=== PATIENT | female | born 1965 | race Caucasian/White ===

== ENCOUNTER 2020-04-08 07:54 | Outpatient (REF) | payer MEDICAID, SELFPAY | END 2020-04-08 07:55 | disposition home or self-care (01) | LOC: HO.LAB 07:54 | PROVIDERS: Visit Provider Internal Medicine | DX: Z20.828 Contact with and (suspected) exposure to other viral communicable diseases (principal) | CPT/HCPCS: C9803; U0003 ==

== ENCOUNTER 2020-07-15 10:08 | Outpatient (REF) | payer MEDICAID, SELFPAY ==
--- NOTE | ~2020-07-15 | XR_ITS ---
EXAMINATION: XR ANKLE, RIGHT CLINICAL INFORMATION: Pain right ankle and right foot. COMPARISON: Right foot 10/17/2012 TECHNIQUE: AP, lateral, and mortise views of the right ankle. FINDINGS: The ankle mortise and subtalar joints are maintained normal. There is a large calcaneal and retrocalcaneal enthesophyte. There is dorsal intertarsal spurring. The soft tissues are normal. There is mild lateral malleolar soft tissue swelling and lateral spurring. XR/XR ankle RT min 3V IMPRESSION: Large calcaneal and retrocalcaneal enthesophytes. No visible acute fracture, dislocation or subluxation seen. Mild lateral malleolar soft tissue swelling and spurring.
== END 2020-07-15 10:09 | disposition home or self-care (01) ==
LOC: HO.XRAY 10:08
PROVIDERS: Visit Provider Registered Nurse
DX: M25.571 Pain in right ankle and joints of right foot (principal); M79.671 Pain in right foot
CPT/HCPCS: 73610

== ENCOUNTER 2020-07-22 15:05 | Outpatient (REF) | payer MEDICAID, SELFPAY | END 2020-07-22 15:06 | disposition home or self-care (01) | LOC: HO.LAB 15:05 | PROVIDERS: Visit Provider Internal Medicine | DX: Z20.822 Contact with and (suspected) exposure to COVID-19 (principal) | CPT/HCPCS: 36415; C9803; U0003; U0005 ==

== ENCOUNTER 2021-02-26 19:35 | Inpatient (IN) | payer MEDICAID, SELFPAY ==
--- NOTE | ~2021-02-26 | XR_ITS ---
EXAMINATION: XR ABDOMEN KUB CLINICAL INDICATION: Follow-up small bowel obstruction COMPARISON: Previous CT of the abdomen and pelvis from yesterday TECHNIQUE: Supine views of the abdomen and pelvis. FINDINGS: There are dilated loops of small bowel seen in the left lower quadrant. This does not appear appreciably changed from yesterday's CT scan. There is no evidence of free air. There is a new nasogastric tube projects over the stomach. There are degenerative changes of the spine and hip joints. XR/XR KUB IMPRESSION: No change in small bowel dilatation from yesterday's CT scan.
--- NOTE | ~2021-02-26 | XR_ITS ---
EXAMINATION: XR CHEST CLINICAL INFORMATION: Nasogastric tube confirmation COMPARISON: None TECHNIQUE: Frontal view of the chest was obtained. FINDINGS: Enteric tube terminates within the gastric fundus. Right chest wall Mediport catheter terminates within the mid SVC. Normal symmetric lung volumes. No parenchymal consolidation. No pleural effusion. No pneumothorax. Cardiomediastinal silhouette and pulmonary vascularity are within normal limits. No acute osseous abnormalities. XR/XR chest 1V IMPRESSION: Nasogastric tube terminates within the gastric fundus.
--- NOTE | ~2021-02-26 | CT_ITS ---
EXAMINATION: CT ABDOMEN AND PELVIS WITHOUT CONTRAST CLINICAL INFORMATION: Upper abdominal pain COMPARISON: 06/09/2018 TECHNIQUE: Multidetector volumetric imaging was performed from the superior aspect of the liver through the pubic symphysis. Sagittal and coronal reformatted images were obtained on the technologist's workstation. This CT examination was performed using dose optimization techniques as appropriate, variously including the following: *Automated exposure control *Adjustment of mA and/or kV according to patient size (this includes techniques or standardized protocols for targeted exams where dose is matched to indication/reason for exam; i.e. extremities or head) *Use of iterative reconstruction technique DLP: 1468 mGy-cm FINDINGS: LUNG BASES: The visualized lung bases are unremarkable. LIVER, GALLBLADDER, AND BILIARY TREE: The liver is normal in size, shape, and attenuation. No focal hepatic lesion or biliary ductal dilatation is present. Gallbladder unremarkable. PANCREAS: Unremarkable. SPLEEN: Unremarkable. ADRENAL GLANDS: Interval increase in size of a right adrenal nodule measuring 1.8 cm, previously 1.3 cm measuring 3 Hounsfield units compatible with a lipid rich adenoma. Normal left adrenal gland. KIDNEYS AND URETERS: The kidneys are normal in size, shape, and attenuation. No hydronephrosis, hydroureter, or calculi seen. No perinephric stranding. BLADDER: Unremarkable. GASTROINTESTINAL TRACT: There are 3 ventral periumbilical abdominal wall hernias in the midline, largest in the epigastric region. There is a small bowel obstruction associated with the most cephalad of the 3 abdominal wall hernias whereby the loop of jejunum entering the hernia is significantly dilated with inspissation of succus entericus with point of transition as loop exits the hernia as seen on coronal image 32. There are 2 smaller ventral abdominal hernias below the dominant hernia, one of which contains a nonobstructed loop of small bowel, the other containing a portion of the sigmoid colon. Subtotal colectomy. ABDOMINAL WALL: No significant hernia is appreciated. LYMPH NODES: Normal. VASCULAR: Aorta mildly atherosclerotic. PELVIC VISCERA: Unremarkable. OSSEOUS STRUCTURES: No acute or suspicious osseous abnormalities. Severe discogenic degenerative disease present throughout the spine. CT/CT abdomen pelvis wo con IMPRESSION: * There are 3 ventral abdominal wall hernias in the midline, the more superior of the 3 associated with a small bowel obstruction with transition point in the proximal jejunum as described. * Status post subtotal colectomy. * Interval increase in size of a right adrenal nodule with attenuation values compatible with adenoma. Current guidelines from the [place] [employer] and the [place] [employer] recommend an initial biochemical evaluation of all adrenal incidentalomas to exclude pheochromocytoma, subclinical [place]/s syndrome and hyperaldosteronism.
[2021-02-26 19:59] VITALS: BP 143/60; PULSE 95; RESP 16; TEMP 36; O2SAT 98; BMI 55.2
--- NOTE | 2021-02-26 20:28 | ED_ITS ---
HPI - Abdominal Pain General Chief Complaint: Nausea/Vomiting/Diarrhea <Massimo Rodriguez MD - Last Filed: 03/02/21 00:12> Stated Complaint: vomitting <Massimo Rodriguez MD - Last Filed: 03/02/21 00:12> Time Seen by Provider: 02/26/21 20:20 <Massimo Rodriguez MD - Last Filed: 03/02/21 00:12> Source: patient <Massimo Rodriguez MD - Last Filed: 03/02/21 00:12> Mode of arrival: ambulatory <Massimo Rodriguez MD - Last Filed: 03/02/21 00:12> Limitations: no limitations <Massimo Rodriguez MD - Last Filed: 03/02/21 00:12> History of Present Illness HPI narrative: Patient history of colon cancer, lap band surgery with recurrent hernias had food last night since then been vomiting multiple times with epigastric pain. Did not have any bowel movement today. No fever no chills complaining of pain in the upper abdominal area no pain in the right upper quadrant no fever no chills no urinary complaints <Massimo Rodriguez MD - Last Filed: 03/02/21 00:12> Related Data Home Medications: Home Medications Medication Instructions Recorded Confirmed aspirin 81 mg tablet,delayed 1 tab PO DAILY 02/26/21 02/26/21 release cholecalciferol (vitamin D3) 25 1 cap PO DAILY 02/26/21 02/26/21 mcg (1,000 unit) capsule fluticasone propionate 220 1 puff INHALATION BID 02/26/21 02/27/21 mcg/actuation HFA aerosol inhaler (Flovent HFA) levothyroxine 200 mcg tablet 400 mcg PO DAILY 02/26/21 02/27/21 lidocaine 5 % topical patch 1 patch TOPICAL DAILY 02/26/21 02/26/21 metformin 500 mg tablet 1 tab PO BID 02/26/21 02/26/21 multivitamin with folic acid 400 1 tab PO DAILY 02/26/21 02/27/21 mcg tablet (Daily-Loida (with folic acid)) oxycodone-acetaminophen 7.5 mg-325 1 tab PO QID PRN 02/26/21 02/26/21 mg tablet pantoprazole 20 mg tablet,delayed 1 tab PO DAILY 02/26/21 02/26/21 release paroxetine HCl 40 mg tablet 1 tab PO DAILY 02/26/21 02/26/21 zolpidem 10 mg tablet 1 tab PO BEDTIME PRN 02/26/21 02/26/21 Previous Rx's Medication Instructions Recorded amlodipine 2.5 mg tablet 2.5 mg PO DAILY #14 tab 03/02/21 <Massimo Rodriguez MD - Last Filed: 03/02/21 00:12> Allergies/Adverse Reactions: Allergies Allergy/AdvReac Type Severity Reaction Status Date / Time cortisone [CORTISONE] Allergy Mild RASH Verified 02/26/21 20:06 Penicillins [PENICILLINS] Allergy Mild RASH Verified 02/26/21 20:06 bee pollen [BEE STINGS] Allergy Unknown ANAPHYLAXIS Verified 02/26/21 20:06 penicillin V Allergy Unknown Itching Verified 02/26/21 20:06 Cortisone Allergy Unknown Itching Uncoded 02/26/21 20:06 <Massimo Rodriguez MD - Last Filed: 03/02/21 00:12> Review of Systems Review of Systems Yes all other systems are reviewed and are negative <Massimo Rodriguez MD - Last Filed: 03/02/21 00:12> [facility], [facility] Past Medical History Medical History: Medical History Asthma Colon cancer Diabetes Morbid obesity Thyroid cancer <Massimo Rodriguez MD - Last Filed: 03/02/21 00:12> Social History Social History: Social History Household Members: Family Housing: House Patient Tobacco Use Status: Never used Tobacco service: No Current occupational status: disabled <Massimo Rodriguez MD - Last Filed: 03/02/21 00:12> Course Course Course Narrative: On re-evaluation patient states that she remains nauseous with intermit tent pain but has not had any further episodes of vomiting. On review of all investigations patient has an obstruction with transition at the jejunum. This case was discussed with Dr. Summers who accepts admission and recommends nasogastric tube. <Valarie Mckenzie MD - Last Filed: 02/26/21 22:59> MDM - Abdominal Pain MDM Narrative Medical decision making narrative: Patient with upper abdominal pain with nausea vomiting after eating food. Will do the labs to the CT scan to rule out gallstones versus pancreatitis. Patient signed out to Dr. Hill pending labs and CT scan <Massimo Rodriguez MD - Last Filed: 03/02/21 00:12> Lab Data Attestation: I reviewed the patient's lab results. <Massimo Rodriguez MD - Last Filed: 03/02/21 00:12> Result diagrams: : 02/28/21 08:12 02/27/21 07:35 <Massimo Rodriguez MD - Last Filed: 03/02/21 00:12> Labs: Lab Results 02/26/21 02/26/21 Range/Units 20:32 20:32 WBC 16.6 H (4.8-10.8) X10*3/uL RBC 5.34 (4.20-5.50) X10*6/uL Hgb 14.1 (12.0-16.0) g/dl Hct 42.9 (37-47) % MCV 80.3 (80-98) fL MCH 26.4 L (27.0-33.0) pg MCHC 32.9 (31.0-35.0) g/dl RDW 14.4 (11.0-16.0) % Plt Count 351 (160-400) X10*3/uL MPV 11.3 (9.4-12.3) fL Immature Gran % (Auto) 0.7 H (0.0-0.4) % Neut % (Auto) 83.7 H (45-73) % Lymph % (Auto) 10.1 L (20-40) % [place] % (Auto) 5.2 (2-11) % Eos % (Auto) 0.1 (0-4) % Baso % (Auto) 0.2 (0-2) % Lymph # (Auto) 1.7 (1.2-4.9) X10*3/uL [place] # (Auto) 0.9 (0.1-1.2) X10*3/uL Eos # (Auto) 0.0 (0.0-0.4) X10*3/uL Baso # (Auto) 0.0 (0.0-0.2) X10*3/uL Abs Immat Gran (auto) 0.12 H (0.00-0.03) X10*3/uL Absolute Neuts (auto) 13.9 H (2.0-8.3) X10*3/uL Absolute Nucleated RBC 0.000 (0.0-0.012) X10*3/uL Nucleated RBC % (auto) 0.0 (0.0-0.2) /100WBC Sodium 139 (135-145) mmol/L Potassium 4.4 (3.3-5.1) mmol/L Chloride 97 (96-108) mmol/L Carbon Dioxide 31 H (22-29) mmol/L Anion Gap 15 (12-20) BUN 12 (9-16) mg/dL Creatinine 1.01 (0.5-1.4) mg/dL Estim Creat Clear Calc 99.8 Estimated GFR 56 Random Glucose 178 H (60-115) mg/dL Calcium 10.1 (8.4-10.2) mg/dL Total Bilirubin 0.6 (0.0-1.0) mg/dL Direct Bilirubin 0.3 (0.0-0.5) mg/dL AST 19 (5-31) U/L ALT 14 (0-31) U/L Alkaline Phosphatase 78 (39-117) U/L Total Protein 8.2 H (6.5-8.0) g/dL Albumin 4.6 (3.5-5.0) g/dL Lipase 25 (8-78) U/L <Massimo Rodriguez MD - Last Filed: 03/02/21 00:12> Lab Results 02/26/21 02/26/21 Range/Units 20:32 20:32 WBC 16.6 H (4.8-10.8) X10*3/uL RBC 5.34 (4.20-5.50) X10*6/uL Hgb 14.1 (12.0-16.0) g/dl Hct 42.9 (37-47) % MCV 80.3 (80-98) fL MCH 26.4 L (27.0-33.0) pg MCHC 32.9 (31.0-35.0) g/dl RDW 14.4 (11.0-16.0) % Plt Count 351 (160-400) X10*3/uL MPV 11.3 (9.4-12.3) fL Immature Gran % (Auto) 0.7 H (0.0-0.4) % Neut % (Auto) 83.7 H (45-73) % Lymph % (Auto) 10.1 L (20-40) % [place] % (Auto) 5.2 (2-11) % Eos % (Auto) 0.1 (0-4) % Baso % (Auto) 0.2 (0-2) % Lymph # (Auto) 1.7 (1.2-4.9) X10*3/uL [place] # (Auto) 0.9 (0.1-1.2) X10*3/uL Eos # (Auto) 0.0 (0.0-0.4) X10*3/uL Baso # (Auto) 0.0 (0.0-0.2) X10*3/uL Abs Immat Gran (auto) 0.12 H (0.00-0.03) X10*3/uL Absolute Neuts (auto) 13.9 H (2.0-8.3) X10*3/uL Absolute Nucleated RBC 0.000 (0.0-0.012) X10*3/uL Nucleated RBC % (auto) 0.0 (0.0-0.2) /100WBC Sodium 139 (135-145) mmol/L Potassium 4.4 (3.3-5.1) mmol/L Chloride 97 (96-108) mmol/L Carbon Dioxide 31 H (22-29) mmol/L Anion Gap 15 (12-20) BUN 12 (9-16) mg/dL Creatinine 1.01 (0.5-1.4) mg/dL Estim Creat Clear Calc 99.8 Estimated GFR 56 Random Glucose 178 H (60-115) mg/dL Calcium 10.1 (8.4-10.2) mg/dL Total Bilirubin 0.6 (0.0-1.0) mg/dL Direct Bilirubin 0.3 (0.0-0.5) mg/dL AST 19 (5-31) U/L ALT 14 (0-31) U/L Alkaline Phosphatase 78 (39-117) U/L Total Protein 8.2 H (6.5-8.0) g/dL Albumin 4.6 (3.5-5.0) g/dL Lipase 25 (8-78) U/L <Valarie Mckenzie MD - Last Filed: 02/26/21 22:59> Discharge Plan Discharge Clinical Impression: SBO (small bowel obstruction), Diabetes, Adrenal nodule <Massimo Rodriguez MD - Last Filed: 03/02/21 00:12> Patient Disposition: Admitted As Inpatient <Massimo Rodriguez MD - Last Filed: 03/02/21 00:12> Interventions: Admission Worksheet (ED) Last Done: 02/27/21 05:16 <Massimo Rodriguez MD - Last Filed: 03/02/21 00:12> Discharge Date/Time: 02/27/21 05:17 <Massimo Rodriguez MD - Last Filed: 03/02/21 00:12>
[2021-02-26] MEDS: 0.9 % Sodium Chloride 1,000 ML 999 ML IVCONT (20:34)
[2021-02-26 20:37] LABS: MANUAL DIFF FLAG NO
[2021-02-26 20:38] LABS: Basophils Percent Auto 0.2 % (0-2); Eosinophils Percent Auto 0.1 % (0-4); Hematocrit 42.9 % (37-47); Hemoglobin 14.1 g/dl (12.0-16.0); Imm Gran Abs Auto 0.12 X10*3/uL (0.00-0.03); Imm Gran Pct Auto 0.7 % (0.0-0.4); Lymphocytes Absolute Auto 1.7 X10*3/uL (1.2-4.9); Lymphocytes Percent Auto 10.1 % (20-40); Mean Corpuscular HGB Conc 32.9 g/dl (31.0-35.0); Mean Corpuscular Hemoglobin 26.4 pg (27.0-33.0); Mean Corpuscular Volume 80.3 fL (80-98); Mean Platelet Volume 11.3 fL (9.4-12.3); Monocytes Absolute Auto 0.9 X10*3/uL (0.1-1.2); Monocytes Percent Auto 5.2 % (2-11); Neutrophils Absolute Auto 13.9 X10*3/uL (2.0-8.3); Neutrophils Percent Auto 83.7 % (45-73); Platelet Count 351 X10*3/uL (160-400); Red Blood Count 5.34 X10*6/uL (4.20-5.50); Red Cell Distribution Width 14.4 % (11.0-16.0); White Blood Count 16.6 X10*3/uL (4.8-10.8)
[2021-02-26] MEDS: ondansetron HCL 4 MG/2 ML VIAL IVPUSH (20:41)
[2021-02-26] MEDS: Famotidine/PF 20 MG/2 ML VIAL IVPUSH (20:41)
[2021-02-26 21:05] LABS: Alanine Aminotransferase 14 U/L (0-31); Albumin Level 4.6 g/dL (3.5-5.0); Alkaline Phosphatase 78 U/L (39-117); Anion Gap 15 (12-20); Aspartate Amino Transferase 19 U/L (5-31); Bilirubin Direct 0.3 mg/dL (0.0-0.5); Bilirubin Total 0.6 mg/dL (0.0-1.0); Blood Urea Nitrogen 12 mg/dL (9-16); Calcium 10.1 mg/dL (8.4-10.2); Carbon Dioxide 31 mmol/L (22-29); Chloride 97 mmol/L (96-108); Creatinine Clr Calc Pharmacy 99.8; Estimated Glomerular Filt Rate 56; Glucose Random 178 mg/dL (60-115); Lipase 25 U/L (8-78); Potassium 4.4 mmol/L (3.3-5.1); Sodium 139 mmol/L (135-145); Total Protein 8.2 g/dL (6.5-8.0)
[2021-02-26] MEDS: Heparin Sodium,Porcine 5,000 UNIT/ML VIAL 5000 UNIT SUBCUT (23:13)
[2021-02-26] MEDS: 0.9 % Sodium Chloride 1,000 ML 100 ML IVCONT (23:13)
[2021-02-26 23:22] LABS: Lactic Acid 1.4 mmol/L (0.5-2.0)
[2021-02-26 23:25] LABS: COVID-19 Test Negative (Negative)
[2021-02-27] VITALS (10 sets, daily range): BP systolic 126–189; BP diastolic 60–96; PULSE 70–89; RESP 15–18; TEMP 36.2–37.1; O2SAT 91–97; BMI 54.3
[2021-02-27] MEDS: Morphine Sulfate 4 MG/ML CARTRIDGE 3 MG IVPUSH ×3 (03:22→19:39)
[2021-02-27] MEDS: 0.9 % Sodium Chloride Flush 3 ML SYRINGE IVFLUSH (03:23)
--- NOTE | 2021-02-27 03:47 | PC.NURSE ---
REPORT GIVEN TO GEETHA WILKINS. PT AWAITING TO GO TO FLOOR.PT DENIES ANY COMPLAINTS AT THIS TIME.
[2021-02-27] MEDS: ondansetron HCL 4 MG/2 ML VIAL IVPUSH ×3 (04:00→19:30)
[2021-02-27] MEDS: Pantoprazole Sodium 40 MG/10 ML VIAL IVPUSH (06:17)
--- NOTE | 2021-02-27 06:50 | PHA.MEDREC ---
Pharmacy Consult ? Medication Reconciliation Med Rec completed overnight by nursing. Pharmacy reviewed med rec. Called [facility] to verify that levothyroxine is prescribed for 200 mcg 2 tabs daily. Tiarra Whitaker, KendellD
--- NOTE | 2021-02-27 07:42 | P.HPGS_ITS ---
History of Present Illness History of Present Illness Date of Service: 02/28/21 Chief complaint: SBO Narrative: Luisa Nieves is a 56 year old female who came to the emergency room last night because of abdominal pain and vomiting. She said she had been doing well and was in her usual state of health until the night prior to her admission. She says she had dinner with groin be even after that, she started to have abdominal pain and vomiting. This persisted yesterday so she decided co me to the emergency room last night. She says that she did not have a bowel movement yesterday although has been passing flatus well. This morning, she says that her pain has resolved. She says she does not have any pain or vomiting overnight since she had an NG tube placed. Her last episode of vomiting was on arrival in the ED. She has had multiple abdominal surgeries. She had a lap band surgery about 7-8 years ago. She says this was be removed 1 year later. She developed a hernia after that. She had colon resection in [facility] as well for colon cancer about 3 years ago. She said she had a hernia repaired at least once in the past. She said that she may have had recurrence of her hernia right after her hernia surgery about 3 years ago. She says that she really has not had any problems with this otherwise. She thinks that she has had this hernia since her last surgery 2-3 years ago. Review of Systems Constitutional: Constitutional: Denies chills and Denies fever(s) Cardiovascular: Cardiovascular: Denies chest pain, Denies dyspnea and Denies dyspnea on exertion Respiratory: Respiratory: Denies cough, Denies dyspnea and Denies dyspnea on exertion Gastrointestinal: Gastrointestinal: Denies hematochezia and Denies change in bowel habits Genitourinary: Genitourinary: Denies hematuria Musculoskeletal: Musculoskeletal: Denies back pain and Denies limited range of motion Neurologic: Denies focal weakness and Denies convulsions Psychiatric: Psychiatric: Denies depression and Denies mood swings PMFSH Past Medical History Medical History Asthma Colon cancer Diabetes Morbid obesity Thyroid cancer Social History Social History Household Members: Family Housing: House Patient Tobacco Use Status: Never used Tobacco Use of substances other than those prescribed or required for medical reasons: No Currently Displaying Signs/Symptoms of Drug Intoxication Withdrawal: No Have you been hit, kicked, punched, or otherwise hurt by someone within the past year? If so, by whom?: No Do you feel safe in your current relationship?: No Is there a partner from a previous relationship who is making you feel unsafe now?: No Are you made to feel afraid or neglected: No Advance Directives: No Advance Directives Information Provided: Yes Advance Directives on File: No Do you have thoughts of harming others: None Do you have a plan to hurt others: No Plan Recently lost weight without trying: No How much weight loss: Not applicable Eating poorly because of decreased appetite: No Nutrition screen score: 0 Nutrition Risks: No Nutritional Risk Patient : No : No Poor oral hygiene: No service: No Current occupational status: disabled [employer] Allergies Allergy/AdvReac Type Severity Reaction Status Date / Time cortisone [CORTISONE] Allergy Mild RASH Verified 02/26/21 20:06 Penicillins [PENICILLINS] Allergy Mild RASH Verified 02/26/21 20:06 bee pollen [BEE STINGS] Allergy Unknown ANAPHYLAXIS Verified 02/26/21 20:06 penicillin V Allergy Unknown Itching Verified 02/26/21 20:06 Cortisone Allergy Unknown Itching Uncoded 02/26/21 20:06 Active Medications: Current Medications Albuterol Sulfate (Albuterol Sulfate 90 Mcg 8 Gm Inhaler) 2 puff INHALE Q4H PRN PRN Reason: wheezing Heparin Sodium (Porcine) (Heparin Sodium,Porcine 5,000 Unit/Ml Vial) 5,000 unit SUBCUT Q8H [facility] Last Admin: 02/26/21 23:13 Dose: 5,000 unit Documented by: Sodium Chloride (Ns) 1,000 mls @ 100 mls/hr IVCONT .Q10H SYDNEE Last Admin: 02/26/21 23:13 Dose: 100 mls/hr Documented by: Morphine Sulfate (Morphine Sulfate 4 Mg/Ml Cartridge) 3 mg IVPUSH Q3H PRN; Protocol PRN Reason: Pain, Severe (Pain Scale 7-10) Last Admin: 02/27/21 03:22 Dose: 3 mg Documented by: Ondansetron HCl (Ondansetron Hcl 4 Mg/2 Ml Vial) 4 mg IVPUSH Q8H PRN PRN Reason: nausea Last Admin: 02/27/21 04:00 Dose: 4 mg Documented by: Pantoprazole Sodium (Pantoprazole Sodium 40 Mg/10 Ml Vial) 40 mg IVPUSH DAILY@0630 [facility] Last Admin: 02/27/21 06:17 Dose: 40 mg Documented by: Sodium Chloride (0.9 % Sodium Chloride Flush 3 Ml Syringe) 3 ml IVFLUSH QSHIFT [facility] Last Admin: 02/27/21 03:23 Dose: 3 ml Documented by: Home Medications Medication Instructions Recorded Confirmed Last Taken Type aspirin 81 mg tablet,delayed 1 tab PO DAILY 02/26/21 02/26/21 Unknown History release cholecalciferol (vitamin D3) 25 1 cap PO DAILY 02/26/21 02/26/21 Unknown History mcg (1,000 unit) capsule fluticasone propionate 220 1 puff INHALATION BID 02/26/21 02/27/21 Unknown History mcg/actuation HFA aerosol inhaler (Flovent HFA) levothyroxine 200 mcg tablet 400 mcg PO DAILY 02/26/21 02/27/21 Unknown History lidocaine 5 % topical patch 1 patch TOPICAL DAILY 02/26/21 02/26/21 Unknown History metformin 500 mg tablet 1 tab PO BID 02/26/21 02/26/21 Unknown History multivitamin with folic acid 400 1 tab PO DAILY 02/26/21 02/27/21 Unknown History mcg tablet (Daily-Loida (with folic acid)) oxycodone-acetaminophen 7.5 mg-325 1 tab PO QID PRN 02/26/21 02/26/21 Unknown History mg tablet pantoprazole 20 mg tablet,delayed 1 tab PO DAILY 02/26/21 02/26/21 Unknown History release paroxetine HCl 40 mg tablet 1 tab PO DAILY 02/26/21 02/26/21 Unknown History zolpidem 10 mg tablet 1 tab PO BEDTIME PRN 02/26/21 02/26/21 Unknown History Physical Exam Vital Signs: Vital Signs: Last Vital Signs Temp 97.5 F 02/27/21 07:29 Pulse 80 02/27/21 07:29 Resp 18 02/27/21 07:29 BP 129/60 02/27/21 07:29 Pulse Ox 95 02/27/21 07:29 Body Mass Index 54.3 Const: Other: Morbidly obese General: comfortable and no acute distress Orientation/consciousness: patient oriented x3 Neck: Neck: Yes no lymphadenopathy Resp: Auscultation: clear to auscultation bilaterally Cardio: Rhythm: regular rhythm GI: Other: Palpable large hernia, midline, no tenderness, hernia only partially reducible but likely chronic Palpation (GI): Soft to palpation, nontender and no guarding Neuro: General: patient oriented x3 Results Results Labs: Short CBC 02/26/21 Range/Units 20:32 WBC 16.6 H (4.8-10.8) X10*3/uL Hgb 14.1 (12.0-16.0) g/dl Hct 42.9 (37-47) % Plt Count 351 (160-400) X10*3/uL BMP 02/26/21 20:32 Sodium 139 Potassium 4.4 Chloride 97 Carbon Dioxide 31 H BUN 12 Creatinine 1.01 Calcium 10.1 Liver Function 02/26/21 Range/Units 20:32 Total Bilirubin 0.6 (0.0-1.0) mg/dL Direct Bilirubin 0.3 (0.0-0.5) mg/dL AST 19 (5-31) U/L ALT 14 (0-31) U/L Alkaline Phosphatase 78 (39-117) U/L Albumin 4.6 (3.5-5.0) g/dL Abdomen CT scan report/results: report reviewed and image reviewed CT scan - pelvis: report reviewed and image reviewed Assessment and Plan (1) SBO (small bowel obstruction): Status: Acute She came in because of abdominal pain and vomiting yesterday. She denies any pain or tenderness at this time. I have reviewed her CAT scan and this shows a large, wide-mouth hernia containing small bowel loops. There seems to be a transition point in a bowel loops within the hernia but this does not appear to be secondary to acute incarceration and there does not appear to be any signs of strangulation. This partial small-bowel obstruction may be secondary to adhesions within the hernia itself. Currently she does not have any tenderness or pain at all. She has had passage of flatus last night and yesterday. She had good amount of air distally on imaging. She has a very benign exam at this time. In view of the absence of symptoms with a benign exam at this time, I told her that we can hold off on surgical intervention. I do not feel that she has acute incarceration based on her history as well as on physical exam. She did have some leukocytosis yesterday but this is likely secondary to physiologic stress. We will keep the NG tube in place although there has not been significant output overnight. I will continue to monitor closely. She understands the plan well. She does state that she would like to avoid surgery as much as possible. Quality Stroke Does the patient have a stroke diagnosis?: No VTE Prior VTE?: No VTE Risk Level:: Medical - moderate - high VTE Device Contraindication: N/A - Device Ordered VTE Drug Contraindication: N/A - Med Ordered Procedures Date of Service Date of Service: 02/27/21
[2021-02-27 08:00] LABS: MANUAL DIFF FLAG NO
[2021-02-27 08:07] LABS: Basophils Percent Auto 0.2 % (0-2); Eosinophils Percent Auto 0.1 % (0-4); Hematocrit 39.5 % (37-47); Hemoglobin 12.7 g/dl (12.0-16.0); Imm Gran Pct Auto 0.7 % (0.0-0.4); Lymphocytes Absolute Auto 1.9 X10*3/uL (1.2-4.9); Lymphocytes Percent Auto 12.3 % (20-40); Mean Corpuscular HGB Conc 32.2 g/dl (31.0-35.0); Mean Corpuscular Hemoglobin 26.2 pg (27.0-33.0); Mean Corpuscular Volume 81.6 fL (80-98); Mean Platelet Volume 11.4 fL (9.4-12.3); Monocytes Absolute Auto 1.1 X10*3/uL (0.1-1.2); Monocytes Percent Auto 7.3 % (2-11); Neutrophils Absolute Auto 11.9 X10*3/uL (2.0-8.3); Neutrophils Percent Auto 79.4 % (45-73); Platelet Count 323 X10*3/uL (160-400); Red Blood Count 4.84 X10*6/uL (4.20-5.50); Red Cell Distribution Width 14.6 % (11.0-16.0)
[2021-02-27 08:24] LABS: Anion Gap 13 (12-20); Blood Urea Nitrogen 13 mg/dL (9-16); Carbon Dioxide 29 mmol/L (22-29); Chloride 101 mmol/L (96-108); Creatinine Clr Calc Pharmacy 126.3; Estimated Glomerular Filt Rate > 60; Glucose Random 138 mg/dL (60-115); Potassium 4.4 mmol/L (3.3-5.1); Sodium 139 mmol/L (135-145)
--- NOTE | 2021-02-27 08:49 | MHC.CM.PN ---
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 THERE IS A CANE AND WALKER IN THE HOME. PATIENT RELIES ON DAUGHTER FOR TRANSPORT NEEDS. SHE IS CURRENTLY EXPERIENCING NAUSEA AND THIS CLERK OPERATOR WILL RETURN TO ASSIST WITH HCP COMPLETION IF SHE CHOOSES TO DO SO. NO VNA IN THE HOME. PATIENT IS AWARE THAT CASE MANAGEMENT WILL OBTAIN PREFERENCES IF VNA SERVICES ARE NEEDED.
[2021-02-27] MEDS: Heparin Sodium,Porcine 5,000 UNIT/ML VIAL 5000 UNIT SUBCUT ×2 (09:00→18:02)
[2021-02-27] MEDS: Levothyroxine Sodium 200 MCG TABLET 400 MCG PO (09:04)
[2021-02-27] MEDS: PARoxetine HCL 40 MG TABLET PO (09:04)
[2021-02-27 09:32] LABS: Glucose, Whole Blood 122 mg/dL (60-115)
[2021-02-27 12:00] LABS: Glucose, Whole Blood 155 mg/dL (60-115)
[2021-02-27 12:08] LABS: Glucose, Whole Blood 144 mg/dL (60-115)
[2021-02-27 15:06] LABS: Glucose, Whole Blood 152 mg/dL (60-115)
--- NOTE | 2021-02-27 15:37 | P.EN_ITS ---
Event Note Date of Service: 02/27/21 Event Note: Seen and examined multiple times today Says she does not have pain Does admit to a little bit of nausea Abdomen soft, no significant tenderness KUB earlier does not reveal any significant interval improvement of dilated bowel loops Plan to repeat KUB tomorrow NG output has been scanty since last night Will re-evaluate in the morning I did tell her that I am not ruling the need for surgical intervention I have asked to retrieve copies of her previous surgery in [facility] Daughter was updated
[2021-02-27 17:06] LABS: Glucose, Whole Blood 121 mg/dL (60-115)
[2021-02-27] MEDS: 0.9 % Sodium Chloride 1,000 ML 100 ML IVCONT (18:04)
--- NOTE | 2021-02-27 18:23 | P.CONHOSP_ITS ---
History of Present Illness Data of Consult Service Date: 02/27/21 Primary Care Provider: Osei Fernández MD [facility] Reason for consult: medical management Ms. Nieves is a 55-year-old woman with history of morbid obesity s/p lap band about 8 years ago that was later removed about a year later, diabetes, ashtma. 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 Subsequently, she underwent a total abdominal colectomy with ileosigmoid anastomosis on 08/[address] Mitchell. ?The pathology report revealed invasive adenocarcinoma, 2.5 cm, moderately differentiated, MIRTA at the proximal transverse colon. ?One of 45 lymph nodes was positive. ?Final staging was pT2 pN1a, stage IIIA. She underwent chemo through a port that she has at the right chest. She presented on this occasion with abdominal pain, nausea and vomitting and work has revealed dilated small bowel loop consitent with small bowel obstruction. NGT is inserted. She presently c/o nausea, NGT with minimal output, not much of abdominal pain. I spoke to her, daughter and significant other at the bedside. Review of Systems Review of Systems: Gen: no fever Resp: no sob, no cough CV: no chest, no MUNOZ, no leg edema GI: +n/v, no abd pain at the moment Neuro: No confusion Yes all other systems are reviewed and are negative [facility] Medical History Asthma Colon cancer Diabetes Morbid obesity Thyroid cancer Pertinent family history: There is diabetes, HNT and cancer in the family Social History Household Members: Family Housing: House Patient Tobacco Use Status: Never used Tobacco Use of substances other than those prescribed or required for medical reasons: No Currently Displaying Signs/Symptoms of Drug Intoxication Withdrawal: No Have you been hit, kicked, punched, or otherwise hurt by someone within the past year? If so, by whom?: No Do you feel safe in your current relationship?: No Is there a partner from a previous relationship who is making you feel unsafe now?: No Are you made to feel afraid or neglected: No Advance Directives: No Advance Directives Information Provided: Yes Advance Directives on File: No Do you have thoughts of harming others: None Do you have a plan to hurt others: No Plan Recently lost weight without trying: No How much weight loss: Not applicable Eating poorly because of decreased appetite: No Nutrition screen score: 0 Nutrition Risks: No Nutritional Risk Patient : No : No Poor oral hygiene: No service: No Current occupational status: disabled Meds Allergies Allergy/AdvReac Type Severity Reaction Status Date / Time cortisone [CORTISONE] Allergy Mild RASH Verified 02/26/21 20:06 Penicillins [PENICILLINS] Allergy Mild RASH Verified 02/26/21 20:06 bee pollen [BEE STINGS] Allergy Unknown ANAPHYLAXIS Verified 02/26/21 20:06 penicillin V Allergy Unknown Itching Verified 02/26/21 20:06 Cortisone Allergy Unknown Itching Uncoded 02/26/21 20:06 Active Medications: Current Medications Albuterol Sulfate (Albuterol Sulfate 90 Mcg 8 Gm Inhaler) 2 puff INHALE Q4H PRN PRN Reason: wheezing Dextrose (Dextrose 50 % 25 Gm/50 Ml Vial) 25 gm IVPUSH Q15M PRN; Protocol PRN Reason: per Hypoglycemia Standing Ord. Fluticasone Propionate (Fluticasone Propionate 250 Mcg Blst.W.Dev) 1 puff INHALE RBID SYDNEE Glucose (Glucose Gel 15 Gm Gel..Gram.) 15 gm PO Q15M PRN; Protocol PRN Reason: per Hypoglycemia Standing Ord. Heparin Sodium (Porcine) (Heparin Sodium,Porcine 5,000 Unit/Ml Vial) 5,000 unit SUBCUT Q8H [facility] Last Admin: 02/27/21 18:02 Dose: 5,000 unit Documented by: Sodium Chloride (Ns) 1,000 mls @ 100 mls/hr IVCONT .Q10H SYDNEE Last Admin: 02/27/21 18:04 Dose: 100 mls/hr Documented by: Promethazine HCl 12.5 mg/ (Sodium Chloride) 50.5 mls @ 202 mls/hr IV Q6H PRN PRN Reason: Nausea and Vomiting Insulin Human Lispro (Insulin Lispro 100 Unit/Ml 3 Ml Vial) 0 unit SUBCUT Q6H SYDNEE; Protocol Last Admin: 02/27/21 18:08 Dose: Not Given Documented by: Levothyroxine Sodium (Levothyroxine Sodium 200 Mcg Tablet) 400 mcg PO DAILY [facility] Last Admin: 02/27/21 09:04 Dose: 400 mcg Documented by: Morphine Sulfate (Morphine Sulfate 4 Mg/Ml Cartridge) 3 mg IVPUSH Q3H PRN; Protocol PRN Reason: Pain, Severe (Pain Scale 7-10) Last Admin: 02/27/21 09:01 Dose: 3 mg Documented by: Ondansetron HCl (Ondansetron Hcl 4 Mg/2 Ml Vial) 4 mg IVPUSH Q8H PRN PRN Reason: nausea Last Admin: 02/27/21 11:46 Dose: 4 mg Documented by: Pantoprazole Sodium (Pantoprazole Sodium 40 Mg/10 Ml Vial) 40 mg IVPUSH DAILY@0630 [facility] Last Admin: 02/27/21 06:17 Dose: 40 mg Documented by: Paroxetine HCl (Paroxetine Hcl 40 Mg Tablet) 40 mg PO DAILY [facility] Last Admin: 02/27/21 09:04 Dose: 40 mg Documented by: Sodium Chloride (0.9 % Sodium Chloride Flush 3 Ml Syringe) 3 ml IVFLUSH QSHIFT [facility] Last Admin: 02/27/21 18:05 Dose: Not Given Documented by: Home Medications Medication Instructions Recorded Confirmed Last Taken Type aspirin 81 mg tablet,delayed 1 tab PO DAILY 02/26/21 02/26/21 Unknown History release cholecalciferol (vitamin D3) 25 1 cap PO DAILY 02/26/21 02/26/21 Unknown History mcg (1,000 unit) capsule fluticasone propionate 220 1 puff INHALATION BID 02/26/21 02/27/21 Unknown History mcg/actuation HFA aerosol inhaler (Flovent HFA) levothyroxine 200 mcg tablet 400 mcg PO DAILY 02/26/21 02/27/21 Unknown History lidocaine 5 % topical patch 1 patch TOPICAL DAILY 02/26/21 02/26/21 Unknown History metformin 500 mg tablet 1 tab PO BID 02/26/21 02/26/21 Unknown History multivitamin with folic acid 400 1 tab PO DAILY 02/26/21 02/27/21 Unknown Histo ry mcg tablet (Daily-Loida (with folic acid)) oxycodone-acetaminophen 7.5 mg-325 1 tab PO QID PRN 02/26/21 02/26/21 Unknown History mg tablet pantoprazole 20 mg tablet,delayed 1 tab PO DAILY 02/26/21 02/26/21 Unknown History release paroxetine HCl 40 mg tablet 1 tab PO DAILY 02/26/21 02/26/21 Unknown History zolpidem 10 mg tablet 1 tab PO BEDTIME PRN 02/26/21 02/26/21 Unknown History Physical Exam Vital Signs and Narrative: Vital Signs: Last Vital Signs Temp 98.2 F 02/27/21 15:31 Pulse 70 02/27/21 15:31 Resp 16 02/27/21 11:07 BP 158/78 H 02/27/21 15:31 Pulse Ox 91 L 02/27/21 15:31 Body Mass Index 54.3 Constitutional: Alert, in no distress, overweight. Mental Status: Oriented to person, place and time. Eyes: Pupils are equal, round and reactive to light. Ear, Nose and Throat: Oropharynx clear, mucous membranes moist. . Trachea midline. Respiratory: Clear to auscultation. No wheezing, rales or rhonchi. Cardiovascular: S1 S2 regular. No murmurs, rubs or gallops. Gastrointestinal: Abdomen soft, non-tender, non-distended. NOl bowel sounds.? Neurologic: Cranial nerves II-XII grossly intact. No focal neurological deficits. Moves all extremities spontaneously.? Skin: No rashes or lesions.? Musculoskeletal: No cyanosis or clubbing. Psychiatric: Normal mood and affect? Results Labs CBC and Chem 7: 02/28/21 08:12 02/27/21 07:35 Labs: Laboratory Results - last 24 hr 02/26/21 02/26/21 02/26/21 20:32 20:32 23:06 MCV 80.3 MCH 26.4 L MCHC 32.9 RDW 14.4 Plt Count 351 MPV 11.3 Immature Gran % (Auto) 0.7 H Neut % (Auto) 83.7 H Lymph % (Auto) 10.1 L Upson % (Auto) 5.2 Eos % (Auto) 0.1 Baso % (Auto) 0.2 Lymph # (Auto) 1.7 Upson # (Auto) 0.9 Eos # (Auto) 0.0 Baso # (Auto) 0.0 Abs Immat Gran (auto) 0.12 H Absolute Neuts (auto) 13.9 H Absolute Nucleated RBC 0.000 Nucleated RBC % (auto) 0.0 Anion Gap 15 Estim Creat Clear Calc 99.8 Estimated GFR 56 POC Glucose Random Glucose 178 H Lactic Acid 1.4 Calcium 10.1 Total Bilirubin 0.6 Direct Bilirubin 0.3 AST 19 ALT 14 Alkaline Phosphatase 78 Total Protein 8.2 H Albumin 4.6 Lipase 25 COVID-19 (NIRALI) COVID-19 Clin Com 02/26/21 02/27/21 02/27/21 23:06 07:35 07:35 MCV 81.6 MCH 26.2 L MCHC 32.2 RDW 14.6 Plt Count 323 MPV 11.4 Immature Gran % (Auto) 0.7 H Neut % (Auto) 79.4 H Lymph % (Auto) 12.3 L Upson % (Auto) 7.3 Eos % (Auto) 0.1 Baso % (Auto) 0.2 Lymph # (Auto) 1.9 Upson # (Auto) 1.1 Eos # (Auto) 0.0 Baso # (Auto) 0.0 Abs Immat Gran (auto) 0.10 H Absolute Neuts (auto) 11.9 H Absolute Nucleated RBC 0.000 Nucleated RBC % (auto) 0.0 Anion Gap 13 Estim Creat Clear Calc 126.3 Estimated GFR > 60 POC Glucose Random Glucose 138 H Lactic Acid Calcium 9.0 D Total Bilirubin Direct Bilirubin AST ALT Alkaline Phosphatase Total Protein Albumin Lipase COVID-19 (NIRALI) Negative COVID-19 Clin Com See Note 02/27/21 02/27/21 02/27/21 09:28 11:12 12:02 MCV MCH MCHC RDW Plt Count MPV Immature Gran % (Auto) Neut % (Auto) Lymph % (Auto) Upson % (Auto) Eos % (Auto) Baso % (Auto) Lymph # (Auto) Upson # (Auto) Eos # (Auto) Baso # (Auto) Abs Immat Gran (auto) Absolute Neuts (auto) Absolute Nucleated RBC Nucleated RBC % (auto) Anion Gap Estim Creat Clear Calc Estimated GFR POC Glucose 122 H 155 H 144 H Random Glucose Lactic Acid Calcium Total Bilirubin Direct Bilirubin AST ALT Alkaline Phosphatase Total Protein Albumin Lipase COVID-19 (NIRALI) COVID-19 Clin Com 02/27/21 02/27/21 14:59 16:41 MCV MCH MCHC RDW Plt Count MPV Immature Gran % (Auto) Neut % (Auto) Lymph % (Auto) Upson % (Auto) Eos % (Auto) Baso % (Auto) Lymph # (Auto) Upson # (Auto) Eos # (Auto) Baso # (Auto) Abs Immat Gran (auto) Absolute Neuts (auto) Absolute Nucleated RBC Nucleated RBC % (auto) Anion Gap Estim Creat Clear Calc Estimated GFR POC Glucose 152 H 121 H Random Glucose Lactic Acid Calcium Total Bilirubin Direct Bilirubin AST ALT Alkaline Phosphatase Total Protein Albumin Lipase COVID-19 (NIRALI) COVID-19 Clin Com Imaging Radiologist's Impressions: Impressions Abdomen/Pelvis CT 02/26/21 20:27 IMPRESSION: * There are 3 ventral abdominal wall hernias in the midline, the more superior of the 3 associated with a small bowel obstruction with transition point in the proximal jejunum as described. * Status post subtotal colectomy. * Interval increase in size of a right adrenal nodule with attenuation values compatible with adenoma. Current guidelines from the [place] [employer]in[employer] and the [place] [employer] recommend an initial biochemical evaluation of all adrenal incidentalomas to exclude pheochromocytoma, subclinical Kelin/s syndrome and hyperaldosteronism. Chest X-Ray 02/26/21 23:52 IMPRESSION: Nasogastric tube terminates within the gastric fundus. KUB X-Ray 02/27/21 07:00 IMPRESSION: No change in small bowel dilatation from yesterday's CT scan. Assessment and Plan (1) SBO (small bowel obstruction): Status: Acute (2) Morbid obesity: Status: Acute (3) Asthma: Status: Acute (4) Diabetes: Status: Acute (5) Adrenal nodule: Status: Acute 56 year old female morbidly obese, with diabetes, astham, history of colon cancer in 2019 s/p resection followed by chemo, history of hernia repair in the past now with SBO likely related to hernia. 1/SBO--presently conservative management but surgery not ruling out surgery if not resolving. patient has no known CAD, no angina, no heart failure symptosm and therefore no further cardiac testing needed at this time, especially in the face of urgent/emergency surgery, she should however have ECG on the record. Her respiratory status given marked obesity should be monitored closely however intraoperatively. 2/Diabetes--SSI, while NPO, hold oral meds. 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
[2021-02-27 20:24] LABS: Glucose, Whole Blood 149 mg/dL (60-115)
[2021-02-28] VITALS (7 sets, daily range): BP systolic 153–186; BP diastolic 68–90; PULSE 62–77; RESP 16–20; TEMP 36.2–36.9; O2SAT 91–98
[2021-02-28] MEDS: Heparin Sodium,Porcine 5,000 UNIT/ML VIAL 5000 UNIT SUBCUT ×4 (00:36→22:42)
[2021-02-28] MEDS: Morphine Sulfate 4 MG/ML CARTRIDGE 3 MG IVPUSH (00:36)
[2021-02-28] MEDS: 0.9 % Sodium Chloride Flush 3 ML SYRINGE IVFLUSH (00:37)
[2021-02-28] MEDS: 0.9 % Sodium Chloride 1,000 ML 100 ML IVCONT ×2 (03:55→17:14)
[2021-02-28] MEDS: Pantoprazole Sodium 40 MG/10 ML VIAL IVPUSH (06:00)
--- NOTE | 2021-02-28 06:00 | ECG_ITS ---
Test Reason : preop Blood Pressure : / mmHG Vent. Rate : 069 BPM Atrial Rate : 069 BPM P-R Int : 134 ms QRS Dur : 142 ms QT Int : 464 ms P-R-T Axes : 030 063 005 degrees QTc Int : 497 ms Normal sinus rhythm Right bundle branch block Abnormal ECG No previous ECGs available Referred By: Onofre Javier Electronically Signed By:GISSEL WILCOX MD
[2021-02-28 07:53] LABS: Glucose, Whole Blood 132 mg/dL (60-115)
--- NOTE | 2021-02-28 08:02 | P.PNGS_ITS ---
Subjective Subjective Date of Service: 02/28/21 <Jacklyn Roper PA-C - Last Filed: 02/28/21 08:11> 02/28/21 <Yogesh Summers MD - Last Filed: 02/28/21 14:21> Interval history: Feels much better this morning. She denies any abdominal pain. She began to pass flatus yesterday. OOB to bathroom yesterday. Denies nausea/vomiting or bloating. Wants NGT out. <Jacklyn Roper PA-C - Last Filed: 02/28/21 08:11> Physical Exam Vital Signs: Vital Signs: Last Vital Signs Temp 97.2 F 02/28/21 07:17 Pulse 66 02/28/21 07:17 Resp 16 02/28/21 07:17 BP 180/82 H 02/28/21 07:17 Pulse Ox 91 L 02/28/21 07:17 Body Mass Index 54.3 <Jacklyn Roper PA-C - Last Filed: 02/28/21 08:11> Const: General: healthy appearing, comfortable and no acute distress <Jacklyn Roper PA-C - Last Filed: 02/28/21 08:11> Orientation/consciousness: patient oriented x3 <UMESH Lucia Last Filed: 02/28/21 08:11> HENMT: Other: NGT in place right nare <Jacklyn Roper PA-C - Last Filed: 02/28/21 08:11> GI: Inspection: No distended and Yes obesity (protuberant) <Jacklyn Roper PA-C - Last Filed: 02/28/21 08:11> Palpation (GI): Soft to palpation, nontender, no guarding and not rigid <UMESH Lucia Last Filed: 02/28/21 08:11> Skin: Other: normal color, warm and dry <UMESH Lucia Last Filed: 02/28/21 08:11> General skin exam: no rashes or lesions noted <UMESH Lucia Last Filed: 02/28/21 08:11> Neuro: General: patient oriented x3 <Jacklyn Roper PA-C - Last Filed: 02/28/21 08:11> Procedures Date of Service Date of Service: 02/28/21 <Jacklyn Roper PA-C - Last Filed: 02/28/21 08:11> Progress Note: A&P Assessment and plan (1) SBO (small bowel obstruction): Status: Acute <Jacklyn Roper PA-C - Last Filed: 02/28/21 08:11> Assessment and Plan: She states she continues to feel better She says she has been passing flatus Denies abdominal pain She feels that she is back to baseline and wants the NG tube removed The plan is to clamp the NG tube in re-evaluate her later today She continues to have a very benign exam and seems to remain asymptomatic Seen and examined - agree with THOMAS Roper <Yogesh Summers MD - Last Filed: 02/28/21 14:21> (2) Incisional hernia: Status: Acute <Jacklyn Roper PA-C - Last Filed: 02/28/21 08:11> (3) Morbid obesity: Status: Acute <Jacklyn Roper PA-C - Last Filed: 02/28/21 08:11> Assessment and Plan: 56 year old female who presented to the ED abdominal pain and vomiting with a CT scan demonstrating a large, wide-mouth hernia containing small bowel loops with a possible transition point in the bowel loops within the hernia. Her symptoms improved and it did not appear to be secondary to acute incarceration. She also did not have any signs of strangulation.? In view of this, surgical intervention was held.?NGT decompression, NPO status and IVF were continued with serial abdominal exams for close monitoring. She continues to improve this morning and is asymptomatic. Her abdomen is completely benign and NTND. She also has evidence of return of GI function so the SBO appears to be resolving with conservative measures and is likely from adhesions within the hernia itself. Will clamp NGT for 4 hrs, check residual and reassess for possible d/c NGT today. Encouraged OOB and ambulation of halls today. Patient is comfortable with plan. Repeat CBC today. Discussed eventual repair down the line if the hernia continues to cause pain. <Jacklyn Roper PA-C - Last Filed: 02/28/21 08:11> Fall Risk Details Current Medications: Current Medications Albuterol Sulfate (Albuterol Sulfate 90 Mcg 8 Gm Inhaler) 2 puff INHALE Q4H PRN PRN Reason: wheezing Dextrose (Dextrose 50 % 25 Gm/50 Ml Vial) 25 gm IVPUSH Q15M PRN; Protocol PRN Reason: per Hypoglycemia Standing Ord. Fluticasone Propionate (Fluticasone Propionate 250 Mcg Blst.W.Dev) 1 puff INHALE RBID [facility] Last Admin: 02/28/21 07:29 Dose: Not Given Documented by: Glucose (Glucose Gel 15 Gm Gel..Gram.) 15 gm PO Q15M PRN; Protocol PRN Reason: per Hypoglycemia Standing Ord. Heparin Sodium (Porcine) (Heparin Sodium,Porcine 5,000 Unit/Ml Vial) 5,000 unit SUBCUT Q8H [facility] Last Admin: 02/28/21 00:36 Dose: 5,000 unit Documented by: Sodium Chloride (Ns) 1,000 mls @ 100 mls/hr IVCONT .Q10H [facility] Last Admin: 02/28/21 03:55 Dose: 100 mls/hr Documented by: Promethazine HCl 12.5 mg/ (Sodium Chloride) 50.5 mls @ 202 mls/hr IV Q6H PRN PRN Reason: Nausea and Vomiting Insulin Human Lispro (Insulin Lispro 100 Unit/Ml 3 Ml Vial) 0 unit SUBCUT Q6H [facility]; Protocol Last Admin: 02/28/21 02:13 Dose: Not Given Documented by: Levothyroxine Sodium (Levothyroxine Sodium 200 Mcg Tablet) 400 mcg PO DAILY [facility] Last Admin: 02/27/21 09:04 Dose: 400 mcg Documented by: Morphine Sulfate (Morphine Sulfate 4 Mg/Ml Cartridge) 3 mg IVPUSH Q3H PRN; Protocol PRN Reason: Pain, Severe (Pain Scale 7-10) Last Admin: 02/28/21 00:36 Dose: 3 mg Documented by: Ondansetron HCl (Ondansetron Hcl 4 Mg/2 Ml Vial) 4 mg IVPUSH Q8H PRN PRN Reason: nausea Last Admin: 02/27/21 19:30 Dose: 4 mg Documented by: Pantoprazole Sodium (Pantoprazole Sodium 40 Mg/10 Ml Vial) 40 mg IVPUSH DAILY@0630 [facility] Last Admin: 02/28/21 06:00 Dose: 40 mg Documented by: Paroxetine HCl (Paroxetine Hcl 40 Mg Tablet) 40 mg PO DAILY [facility] Last Admin: 02/27/21 09:04 Dose: 40 mg Documented by: Sodium Chloride (0.9 % Sodium Chloride Flush 3 Ml Syringe) 3 ml IVFLUSH QSHIFT [facility] Last Admin: 02/28/21 07:27 Dose: Not Given Documented by: <Jacklyn Roper PA-C - Last Filed: 02/28/21 08:11> Time Spent With Patient Time: Total time spent is greater than 50% in coordination of care (as documented) at patient's floor/unit and/or counseling patient: <Jacklyn Roper PA-C - Last Filed: 02/28/21 08:11> Time with patient: 15 - 24 minutes <Jacklyn Roper PA-C - Last Filed: 02/28/21 08:11> Quality Stroke Does the patient have a stroke diagnosis?: No <Jacklyn Roper PA-C - Last Filed: 02/28/21 08:11> VTE Prior VTE?: No <Jacklyn Roper PA-C - Last Filed: 02/28/21 08:11> VTE Risk Level:: Medical - moderate - high <Jacklyn Roper PA-C - Last Filed: 02/28/21 08:11> VTE Device Contraindication: N/A - Device Ordered <UMESH Lucia Last Filed: 02/28/21 08:11> VTE Drug Contraindication: N/A - Med Ordered <Jacklyn Roper PA-C - Last Filed: 02/28/21 08:11>
[2021-02-28 08:57] LABS: MANUAL DIFF FLAG NO
[2021-02-28 09:02] LABS: Basophils Percent Auto 0.3 % (0-2); Eosinophils Percent Auto 0.2 % (0-4); Hematocrit 39.1 % (37-47); Hemoglobin 12.3 g/dl (12.0-16.0); Imm Gran Abs Auto 0.11 X10*3/uL (0.00-0.03); Imm Gran Pct Auto 0.9 % (0.0-0.4); Lymphocytes Absolute Auto 1.5 X10*3/uL (1.2-4.9); Lymphocytes Percent Auto 12.4 % (20-40); Mean Corpuscular HGB Conc 31.5 g/dl (31.0-35.0); Mean Corpuscular Hemoglobin 26.2 pg (27.0-33.0); Mean Corpuscular Volume 83.4 fL (80-98); Mean Platelet Volume 11.6 fL (9.4-12.3); Monocytes Percent Auto 8.3 % (2-11); Neutrophils Absolute Auto 9.4 X10*3/uL (2.0-8.3); Neutrophils Percent Auto 77.9 % (45-73); Platelet Count 273 X10*3/uL (160-400); Red Blood Count 4.69 X10*6/uL (4.20-5.50); Red Cell Distribution Width 14.6 % (11.0-16.0); White Blood Count 12.1 X10*3/uL (4.8-10.8)
[2021-02-28] MEDS: PARoxetine HCL 40 MG TABLET PO (09:16)
[2021-02-28] MEDS: Levothyroxine Sodium 200 MCG TABLET 400 MCG PO (09:16)
[2021-02-28] MEDS: Labetalol HCL 100 MG/20 ML VIAL 10 MG IVPUSH (09:17)
--- NOTE | 2021-02-28 10:00 | P.PNIM_ITS ---
Subjective Subjective Date of Service: 02/28/21 Interval History: Seen in f/u BP management in setting of sbo and NPO, BP is high this morning. She feels overall better, nausea is better and has no pain at the moment Review of Systems no fever no vomitn no abd pain Physical Exam Vital Signs: Vital Signs: Last Vital Signs Temp 97.2 F 02/28/21 07:17 Pulse 66 02/28/21 07:17 Resp 16 02/28/21 07:17 BP 180/82 H 02/28/21 07:17 Pulse Ox 91 L 02/28/21 07:17 Body Mass Index 54.3 Constitutional: Alert, in no distress, overweight. Mental Status: Oriented to person, place and time. Ear, Nose and Throat: NGT in place Respiratory: Clear to auscultation. No wheezing, rales or rhonchi. Cardiovascular: S1 S2 regular. No murmurs, rubs or gallops. Gastrointestinal: Abdomen soft, non-tender, non-distended. possible faint bowel sound Neurologic: Cranial nerves II-XII grossly intact. No focal neurological deficits. Moves all extremities spontaneously.? Skin: No rashes or lesions.? Musculoskeletal: No cyanosis or clubbing. Psychiatric: Normal mood and affect? ? Objective Data Active Medications Albuterol Sulfate (Albuterol Sulfate 90 Mcg 8 Gm Inhaler) 2 puff INHALE Q4H PRN PRN Reason: wheezing Dextrose (Dextrose 50 % 25 Gm/50 Ml Vial) 25 gm IVPUSH Q15M PRN; Protocol PRN Reason: per Hypoglycemia Standing Ord. Fluticasone Propionate (Fluticasone Propionate 250 Mcg Blst.W.Dev) 1 puff INHALE RBID [facility] Last Admin: 02/28/21 07:29 Dose: Not Given Documented by: MAMI Non-Admin Reason: Patient Refused Glucose (Glucose Gel 15 Gm Gel..Gram.) 15 gm PO Q15M PRN; Protocol PRN Reason: per Hypoglycemia Standing Ord. Heparin Sodium (Porcine) (Heparin Sodium,Porcine 5,000 Unit/Ml Vial) 5,000 unit SUBCUT Q8H [facility] Last Admin: 02/28/21 09:16 Dose: 5,000 unit Documented by: NICO Sodium Chloride (Ns) 1,000 mls @ 100 mls/hr IVCONT .Q10H [facility] Last Admin: 10/15/21 03:55 Dose: 100 mls/hr Documented by: THOMAS Promethazine HCl 12.5 mg/ (Sodium Chloride) 50.5 mls @ 202 mls/hr IV Q6H PRN PRN Reason: Nausea and Vomiting Insulin Human Lispro (Insulin Lispro 100 Unit/Ml 3 Ml Vial) 0 unit SUBCUT Q6H [facility]; Protocol Last Admin: 02/28/21 09:17 Dose: Not Given Documented by: NICO Non-Admin Reason: No Insulin Coverage Levothyroxine Sodium (Levothyroxine Sodium 200 Mcg Tablet) 400 mcg PO DAILY [facility] Last Admin: 02/28/21 09:16 Dose: 400 mcg Documented by: NICO Morphine Sulfate (Morphine Sulfate 4 Mg/Ml Cartridge) 3 mg IVPUSH Q3H PRN; Protocol PRN Reason: Pain, Severe (Pain Scale 7-10) Last Admin: 02/28/21 00:36 Dose: 3 mg Documented by: THOMAS Ondansetron HCl (Ondansetron Hcl 4 Mg/2 Ml Vial) 4 mg IVPUSH Q8H PRN PRN Reason: nausea Last Admin: 02/27/21 19:30 Dose: 4 mg Documented by: THOMAS Pantoprazole Sodium (Pantoprazole Sodium 40 Mg/10 Ml Vial) 40 mg IVPUSH DAILY@0630 [facility] Last Admin: 02/28/21 06:00 Dose: 40 mg Documented by: THOMAS Paroxetine HCl (Paroxetine Hcl 40 Mg Tablet) 40 mg PO DAILY [facility] Last Admin: 02/28/21 09:16 Dose: 40 mg Documented by: NICO Sodium Chloride (0.9 % Sodium Chloride Flush 3 Ml Syringe) 3 ml IVFLUSH QSHIFT [facility] Last Admin: 02/28/21 07:27 Dose: Not Given Documented by: NICO Non-Admin Reason: IV Running Labs CBC & Chem 7: 02/28/21 08:12 02/27/21 07:35 Labs: Laboratory Results - last 24 hr 02/27/21 02/27/21 02/27/21 11:12 12:02 14:59 MCV MCH MCHC RDW Plt Count MPV Immature Gran % (Auto) Neut % (Auto) Lymph % (Auto) [place] % (Auto) Eos % (Auto) Baso % (Auto) Lymph # (Auto) [place] # (Auto) Eos # (Auto) Baso # (Auto) Abs Immat Gran (auto) Absolute Neuts (auto) Absolute Nucleated RBC Nucleated RBC % (auto) POC Glucose 155 H 144 H 152 H 02/27/21 02/27/21 02/28/21 16:41 19:43 07:25 MCV MCH MCHC RDW Plt Count MPV Immature Gran % (Auto) Neut % (Auto) Lymph % (Auto) [place] % (Auto) Eos % (Auto) Baso % (Auto) Lymph # (Auto) [place] # (Auto) Eos # (Auto) Baso # (Auto) Abs Immat Gran (auto) Absolute Neuts (auto) Absolute Nucleated RBC Nucleated RBC % (auto) POC Glucose 121 H 149 H 132 H 02/28/21 08:12 MCV 83.4 MCH 26.2 L MCHC 31.5 RDW 14.6 Plt Count 273 MPV 11.6 Immature Gran % (Auto) 0.9 H Neut % (Auto) 77.9 H Lymph % (Auto) 12.4 L [place] % (Auto) 8.3 Eos % (Auto) 0.2 Baso % (Auto) 0.3 Lymph # (Auto) 1.5 [place] # (Auto) 1.0 Eos # (Auto) 0.0 Baso # (Auto) 0.0 Abs Immat Gran (auto) 0.11 H Absolute Neuts (auto) 9.4 H Absolute Nucleated RBC 0.000 Nucleated RBC % (auto) 0.0 POC Glucose Microbiology Microbiology Results: Microbiology 02/27/21 00:18 Blood Culture - Preliminary Blood - Venous No growth after 24 hours. 02/26/21 23:06 Blood Culture - Preliminary Blood - Venous No growth after 24 hours. Assessment and Plan (1) HTN (hypertension): Status: Acute (2) Diabetes: Status: Acute (3) Morbid obesity: Status: Acute (4) SBO (small bowel obstruction): Status: Acute Assessment and Plan: 56 year old female morbidly obese, with diabetes, astham, history of colon cancer in 2019 s/p resection followed by chemo, history of hernia repair in the past now with SBO likely related to hernia. 1/SBO--presently conservative management but surgery not ruling out surgery if not resolving. patient has no known CAD, no angina, no heart failure symptosm and therefore no further cardiac testing needed at this time, especially in the face of urgent/emergency surgery, she should however have ECG on the record. Her respiratory status given marked obesity should be monitored closely however intraoperatively. 2/Diabetes--SSI, while NPO, hold oral meds. 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 Quality Stroke Does the patient have a stroke diagnosis?: No VTE Prior VTE?: No VTE Risk Level:: Medical - moderate - high VTE Device Contraindication: N/A - Device Ordered VTE Drug Contraindication: N/A - Med Ordered
[2021-02-28 11:53] LABS: Glucose, Whole Blood 125 mg/dL (60-115)
[2021-02-28] MEDS: Acetaminophen 325 MG TABLET 650 MG PO (13:02)
[2021-02-28] MEDS: oxyCODONE HCl Immed Release 5 MG TABLET 10 MG PO (13:02)
--- NOTE | 2021-02-28 15:01 | PM.EVENT ---
Event Note Date of Service: 02/28/21 Event Note: She continued to do well with the NG tube clamped Very minimal output from NG tube after unclamping She denies any abdominal pain Has been passing flatus and says she had a bowel movement today NG tube therefore removed Abdomen remains benign, nontender She wants to avoid surgery for now She understands that if she has recurrent symptoms, she will need NG tube inserted and possible repair of this incisional hernia Slowly advance diet tomorrow if she continues do well Explained plan to patient and daughter at bedside She is comfortable with this; she says she would like to avoid surgery at this time Review of records from [facility] so she had a subtotal colectomy in 2019, robotic, for colon cancer and polyps
[2021-02-28 17:06] LABS: Glucose, Whole Blood 126 mg/dL (60-115)
[2021-02-28 20:59] LABS: Glucose, Whole Blood 128 mg/dL (60-115)
[2021-02-28] MEDS: diphenhydrAMINE HCL 50 MG/ML VIAL 25 MG IVPUSH (23:14)
[2021-03-01] VITALS (7 sets, daily range): BP systolic 140–158; BP diastolic 66–90; PULSE 59–68; RESP 15–18; TEMP 36–36.6; O2SAT 93–97
[2021-03-01] MEDS: Acetaminophen 325 MG TABLET 650 MG PO (00:44)
[2021-03-01] MEDS: 0.9 % Sodium Chloride 1,000 ML 100 ML IVCONT ×3 (02:22→23:04)
[2021-03-01 02:27] LABS: Glucose, Whole Blood 122 mg/dL (60-115)
[2021-03-01] MEDS: Pantoprazole Sodium 40 MG/10 ML VIAL IVPUSH (05:33)
[2021-03-01] MEDS: Heparin Sodium,Porcine 5,000 UNIT/ML VIAL 5000 UNIT SUBCUT ×3 (06:36→22:02)
[2021-03-01] MEDS: PARoxetine HCL 40 MG TABLET PO (07:47)
[2021-03-01] MEDS: Levothyroxine Sodium 200 MCG TABLET 400 MCG PO (07:47)
[2021-03-01 08:14] LABS: Glucose, Whole Blood 134 mg/dL (60-115)
--- NOTE | 2021-03-01 08:35 | HO.PM.IMPN ---
Subjective Subjective Date of Service: 03/01/21 Interval History: Seen in f/u BP management, here SBO, clinically feeling better, NGT out, passing gas/ +bm Review of Systems no fever no vomitn no abd pain Physical Exam Vital Signs: Vital Signs: Last Vital Signs Temp 96.9 F 03/01/21 07:47 Pulse 68 03/01/21 07:47 Resp 18 03/01/21 07:47 BP 140/70 H 03/01/21 07:47 Pulse Ox 95 03/01/21 07:47 Body Mass Index 54.3 Constitutional: Alert, in no distress, overweight. Mental Status: Oriented to person, place and time. Ear, Nose and Throat: NGT out Respiratory: Clear to auscultation. No wheezing, rales or rhonchi. Cardiovascular: S1 S2 regular. No murmurs, rubs or gallops. Gastrointestinal: Abdomen soft, non-tender, non-distended. +BS Neurologic. Moves all extremities spontaneously.? Skin: No rashes or lesions.? Musculoskeletal: No cyanosis or clubbing. Psychiatric: Normal mood and affect? ? Objective Data Active Medications Acetaminophen (Acetaminophen 325 Mg Tablet) 650 mg PO Q6H PRN PRN Reason: Pain, Mild (Pain Scale 1-3) Last Admin: 03/01/21 00:44 Dose: 650 mg Documented by: KALIE Albuterol Sulfate (Albuterol Sulfate 90 Mcg 8 Gm Inhaler) 2 puff INHALE Q4H PRN PRN Reason: wheezing Dextrose (Dextrose 50 % 25 Gm/50 Ml Vial) 25 gm IVPUSH Q15M PRN; Protocol PRN Reason: per Hypoglycemia Standing Ord. Fluticasone Propionate (Fluticasone Propionate 250 Mcg Blst.W.Dev) 1 puff INHALE RBID [facility] Last Admin: 03/01/21 07:49 Dose: Not Given Documented by: NETTIE Non-Admin Reason: Patient Refused Glucose (Glucose Gel 15 Gm Gel..Gram.) 15 gm PO Q15M PRN; Protocol PRN Reason: per Hypoglycemia Standing Ord. Heparin Sodium (Porcine) (Heparin Sodium,Porcine 5,000 Unit/Ml Vial) 5,000 unit SUBCUT Q8H [facility] Last Admin: 03/01/21 06:36 Dose: 5,000 unit Documented by: KALIE Sodium Chloride (Ns) 1,000 mls @ 100 mls/hr IVCONT .Q10H [facility] Last Admin: 03/01/21 02:22 Dose: 100 mls/hr Documented by: KALIE Promethazine HCl 12.5 mg/ (Sodium Chloride) 50.5 mls @ 202 mls/hr IV Q6H PRN PRN Reason: Nausea and Vomiting Insulin Human Lispro (Insulin Lispro 100 Unit/Ml 3 Ml Vial) 0 unit SUBCUT Q6H [facility]; Protocol Last Admin: 03/01/21 02:24 Dose: Not Given Documented by: KALIE Non-Admin Reason: No Insulin Coverage Labetalol HCl (Labetalol Hcl 100 Mg/20 Ml Vial) 10 mg IVPUSH Q4H PRN PRN Reason: SBP > 160 Levothyroxine Sodium (Levothyroxine Sodium 200 Mcg Tablet) 400 mcg PO DAILY [facility] Last Admin: 03/01/21 07:47 Dose: 400 mcg Documented by: PATTI Morphine Sulfate (Morphine Sulfate 4 Mg/Ml Cartridge) 3 mg IVPUSH Q3H PRN; Protocol PRN Reason: Pain, Severe (Pain Scale 7-10) Last Admin: 02/28/21 00:36 Dose: 3 mg Documented by: THOMAS Ondansetron HCl (Ondansetron Hcl 4 Mg/2 Ml Vial) 4 mg IVPUSH Q8H PRN PRN Reason: nausea Last Admin: 02/27/21 19:30 Dose: 4 mg Documented by: THOMAS Oxycodone HCl (Oxycodone Hcl Immed Release 5 Mg Tablet) 5 mg PO Q4H PRN PRN Reason: Pain, Moderate (Pain Scale 4-6 Oxycodone HCl (Oxycodone Hcl Immed Release 5 Mg Tablet) 10 mg PO Q4H PRN PRN Reason: Pain, Severe (Pain Scale 7-10) Last Admin: 02/28/21 13:02 Dose: 10 mg Documented by: NICO Pantoprazole Sodium (Pantoprazole Sodium 40 Mg/10 Ml Vial) 40 mg IVPUSH DAILY@0630 [facility] Last Admin: 03/01/21 05:33 Dose: 40 mg Documented by: KALIE Paroxetine HCl (Paroxetine Hcl 40 Mg Tablet) 40 mg PO DAILY [facility] Last Admin: 03/01/21 07:47 Dose: 40 mg Documented by: PATTI Sodium Chloride (0.9 % Sodium Chloride Flush 3 Ml Syringe) 3 ml IVFLUSH QSHIFT [facility] Last Admin: 02/28/21 20:47 Dose: Not Given Documented by: KALIE Non-Admin Reason: IV Running Labs CBC & Chem 7: 02/28/21 08:12 02/27/21 07:35 Labs: Laboratory Results - last 24 hr 02/28/21 02/28/21 02/28/21 08:12 11:13 16:55 MCV 83.4 MCH 26.2 L MCHC 31.5 RDW 14.6 Plt Count 273 MPV 11.6 Immature Gran % (Auto) 0.9 H Neut % (Auto) 77.9 H Lymph % (Auto) 12.4 L [place] % (Auto) 8.3 Eos % (Auto) 0.2 Baso % (Auto) 0.3 Lymph # (Auto) 1.5 [place] # (Auto) 1.0 Eos # (Auto) 0.0 Baso # (Auto) 0.0 Abs Immat Gran (auto) 0.11 H Absolute Neuts (auto) 9.4 H Absolute Nucleated RBC 0.000 Nucleated RBC % (auto) 0.0 POC Glucose 125 H 126 H 02/28/21 03/01/21 03/01/21 20:32 02:21 07:46 MCV MCH MCHC RDW Plt Count MPV Immature Gran % (Auto) Neut % (Auto) Lymph % (Auto) [place] % (Auto) Eos % (Auto) Baso % (Auto) Lymph # (Auto) [place] # (Auto) Eos # (Auto) Baso # (Auto) Abs Immat Gran (auto) Absolute Neuts (auto) Absolute Nucleated RBC Nucleated RBC % (auto) POC Glucose 128 H 122 H 134 H Microbiology Microbiology Results: Microbiology 02/27/21 00:18 Blood Culture - Preliminary Blood - Venous No growth after 48 hours. 02/26/21 23:06 Blood Culture - Preliminary Blood - Venous No growth after 48 hours. Assessment and Plan (1) HTN (hypertension): Status: Acute (2) Diabetes: Status: Acute (3) Morbid obesity: Status: Acute (4) SBO (small bowel obstruction): Status: Acute Assessment and Plan: 56 year old female morbidly obese, with diabetes, astham, history of colon cancer in 2019 s/p resection followed by chemo, history of hernia repair in the past now with SBO likely related to hernia. 1/SBO--clinically resolved, further management per surgery. 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 Quality Stroke Does the patient have a stroke diagnosis?: No VTE Prior VTE?: No VTE Risk Level:: Medical - moderate - high VTE Device Contraindication: N/A - Device Ordered VTE Drug Contraindication: N/A - Med Ordered
[2021-03-01] MEDS: amLODIPine Besylate 2.5 MG TABLET PO (09:08)
[2021-03-01] MEDS: oxyCODONE HCl Immed Release 5 MG TABLET PO (09:19)
--- NOTE | 2021-03-01 11:10 | P.PNGS_ITS ---
Subjective Subjective Date of Service: 03/01/21 Interval history: Feels better, no abdominal pain. Tolerating water. Had a bowel movement. Passing flatus. No complaints except hungry. No shortness of breath or chest pain. Physical Exam Vital Signs: Vital Signs: Last Vital Signs Temp 96.9 F 03/01/21 07:47 Pulse 68 03/01/21 09:08 Resp 18 03/01/21 07:47 BP 140/70 H 03/01/21 09:08 Pulse Ox 95 03/01/21 07:47 Body Mass Index 54.3 Const: Other: Alert, appears comfortable, in no distress Resp: Effort & Inspection: normal respiratory effort Auscultation: clear to auscultation bilaterally Cardio: Rate: regular rate Rhythm: regular rhythm GI: Other: Obese, soft, nontender, bowel sounds normal, no palpable masses Skin: Other: Warm and dry General skin exam: no rashes or lesions noted Procedures Date of Service Date of Service: 03/01/21 Progress Note: A&P Assessment and plan (1) SBO (small bowel obstruction): Status: Acute (2) Diabetes: Status: Acute Assessment and Plan: Small-bowel obstruction-improving. Begin clear liquid diet. Advance as tolerated. Continue IV fluid for now. Diabetes-continue to follow blood sugars, levels have been running in the low to mid 100s Resume usual metformin once back on solid diet. Fall Risk Details Current Medications: Current Medications Acetaminophen (Acetaminophen 325 Mg Tablet) 650 mg PO Q6H PRN PRN Reason: Pain, Mild (Pain Scale 1-3) Last Admin: 03/01/21 00:44 Dose: 650 mg Documented by: Albuterol Sulfate (Albuterol Sulfate 90 Mcg 8 Gm Inhaler) 2 puff INHALE Q4H PRN PRN Reason: wheezing Amlodipine Besylate (Amlodipine Besylate 2.5 Mg Tablet) 2.5 mg PO DAILY [facility]; Protocol Last Admin: 03/01/21 09:08 Dose: 2.5 mg Documented by: Dextrose (Dextrose 50 % 25 Gm/50 Ml Vial) 25 gm IVPUSH Q15M PRN; Protocol PRN Reason: per Hypoglycemia Standing Ord. Fluticasone Propionate (Fluticasone Propionate 250 Mcg Blst.W.Dev) 1 puff INHALE RBID [facility] Last Admin: 03/01/21 07:49 Dose: Not Given Documented by: Glucose (Glucose Gel 15 Gm Gel..Gram.) 15 gm PO Q15M PRN; Protocol PRN Reason: per Hypoglycemia Standing Ord. Heparin Sodium (Porcine) (Heparin Sodium,Porcine 5,000 Unit/Ml Vial) 5,000 unit SUBCUT Q8H [facility] Last Admin: 03/01/21 06:36 Dose: 5,000 unit Documented by: Sodium Chloride (Ns) 1,000 mls @ 100 mls/hr IVCONT .Q10H [facility] Last Admin: 03/01/21 02:22 Dose: 100 mls/hr Documented by: Promethazine HCl 12.5 mg/ (Sodium Chloride) 50.5 mls @ 202 mls/hr IV Q6H PRN PRN Reason: Nausea and Vomiting Insulin Human Lispro (Insulin Lispro 100 Unit/Ml 3 Ml Vial) 0 unit SUBCUT Q6H [facility]; Protocol Last Admin: 03/01/21 08:35 Dose: Not Given Documented by: Labetalol HCl (Labetalol Hcl 100 Mg/20 Ml Vial) 10 mg IVPUSH Q4H PRN PRN Reason: SBP > 160 Levothyroxine Sodium (Levothyroxine Sodium 200 Mcg Tablet) 400 mcg PO DAILY [facility] Last Admin: 03/01/21 07:47 Dose: 400 mcg Documented by: Morphine Sulfate (Morphine Sulfate 4 Mg/Ml Cartridge) 3 mg IVPUSH Q3H PRN; Protocol PRN Reason: Pain, Severe (Pain Scale 7-10) Last Admin: 02/28/21 00:36 Dose: 3 mg Documented by: Ondansetron HCl (Ondansetron Hcl 4 Mg/2 Ml Vial) 4 mg IVPUSH Q8H PRN PRN Reason: nausea Last Admin: 02/27/21 19:30 Dose: 4 mg Documented by: Oxycodone HCl (Oxycodone Hcl Immed Release 5 Mg Tablet) 5 mg PO Q4H PRN PRN Reason: Pain, Moderate (Pain Scale 4-6 Last Admin: 03/01/21 09:19 Dose: 5 mg Documented by: Oxycodone HCl (Oxycodone Hcl Immed Release 5 Mg Tablet) 10 mg PO Q4H PRN PRN Reason: Pain, Severe (Pain Scale 7-10) Last Admin: 02/28/21 13:02 Dose: 10 mg Documented by: Paroxetine HCl (Paroxetine Hcl 40 Mg Tablet) 40 mg PO DAILY [facility] Last Admin: 03/01/21 07:47 Dose: 40 mg Documented by: Sodium Chloride (0.9 % Sodium Chloride Flush 3 Ml Syringe) 3 ml IVFLUSH QSHIFT [facility] Last Admin: 03/01/21 08:36 Dose: Not Given Documented by: Time Spent With Patient Time: Total time spent is greater than 50% in coordination of care (as documented) at patient's floor/unit and/or counseling patient: Time with patient: less than 15 minutes Quality Stroke Does the patient have a stroke diagnosis?: No VTE Prior VTE?: No VTE Risk Level:: Medical - moderate - high VTE Device Contraindication: N/A - Device Ordered VTE Drug Contraindication: N/A - Med Ordered
--- NOTE | 2021-03-01 11:24 | P.PNNP_ITS ---
Subjective Subjective Date of Service: 03/01/21 Interval history: Seen and examined consult dictated Physical Exam Vital Signs: Vital Signs: Last Vital Signs Temp 96.9 F 03/01/21 07:47 Pulse 68 03/01/21 09:08 Resp 18 03/01/21 07:47 BP 140/70 H 03/01/21 09:08 Pulse Ox 95 03/01/21 07:47 Body Mass Index 54.3 Objective Data Labs CBC & Chem 7: 02/28/21 08:12 02/27/21 07:35 Labs: Laboratory Results - last 24 hr 02/28/21 02/28/21 02/28/21 11:13 16:55 20:32 POC Glucose 125 H 126 H 128 H 03/01/21 03/01/21 02:21 07:46 POC Glucose 122 H 134 H Microbiology Microbiology Results: Microbiology 02/27/21 00:18 Blood - Venous Blood Culture - Preliminary No growth after 48 hours. 02/26/21 23:06 Blood - Venous Blood Culture - Preliminary No growth after 48 hours. Procedures Date of Service Date of Service: 03/01/21 Assessment & Plan Assessment and plan (1) Adrenal nodule: Status: Acute Assessment and Plan: probably incidentaloma but would rule out secreting nodule no prior history of HTN, hypokalemia REC PA/PRA cortisol plasma catecholamine Time Spent With Patient Time: Total time spent is greater than 50% in coordination of care (as documente d) at patient's floor/unit and/or counseling patient: Progress Note: Quality Stroke Does the patient have a stroke diagnosis?: No
[2021-03-01 12:08] LABS: Glucose, Whole Blood 110 mg/dL (60-115)
[2021-03-01 14:22] LABS: Cortisol Random 15.8 ug/dL
[2021-03-01] MEDS: Omeprazole 20 MG CAPSULE.DR PO (15:57)
[2021-03-01 16:27] LABS: Glucose, Whole Blood 111 mg/dL (60-115)
[2021-03-01 20:25] LABS: Glucose, Whole Blood 116 mg/dL (60-115)
[2021-03-01] MEDS: oxyCODONE HCl Immed Release 5 MG TABLET 10 MG PO (21:54)
[2021-03-02] VITALS: BP 146/78; PULSE 65; RESP 18; TEMP 36.6; O2SAT 93
[2021-03-02 04:00] VITALS: RESP 18
[2021-03-02] MEDS: Omeprazole 20 MG CAPSULE.DR PO (06:16)
[2021-03-02] MEDS: Heparin Sodium,Porcine 5,000 UNIT/ML VIAL 5000 UNIT SUBCUT (06:18)
[2021-03-02 08:00] VITALS: BP 140/90; PULSE 65; RESP 18; TEMP 36.1; O2SAT 97
--- NOTE | 2021-03-02 08:02 | PM.PNNEP ---
Subjective Subjective Date of Service: 03/02/21 Interval history: Seen and examined consult dictated Physical Exam Vital Signs: Vital Signs: Last Vital Signs Temp 98 F 03/02/21 00:00 Pulse 65 03/02/21 00:00 Resp 18 03/02/21 04:00 BP 146/78 H 03/02/21 00:00 Pulse Ox 93 03/02/21 00:00 Body Mass Index 54.3 Const: Other: Alert, appears comfortable, in no distress General: comfortable and no acute distress Orientation/consciousness: patient oriented x3 Resp: Effort & Inspection: normal respiratory effort Auscultation: clear to auscultation bilaterally Cardio: Rate: regular rate Rhythm: regular rhythm GI: Other: Obese, soft, nontender, bowel sounds normal, no palpable masses Inspection: No distended and Yes obesity (protuberant) Palpation (GI): nontender Neuro: General: patient oriented x3 Objective Data Labs CBC & Chem 7: 02/28/21 08:12 02/27/21 07:35 Labs: Laboratory Results - last 24 hr 03/01/21 03/01/21 03/01/21 07:46 11:26 12:39 POC Glucose 134 H 110 Random Cortisol 15.8 03/01/21 03/01/21 16:21 20:12 POC Glucose 111 116 H Random Cortisol Microbiology Microbiology Results: Microbiology 02/27/21 00:18 Blood - Venous Blood Culture - Preliminary No growth after 48 hours. 02/26/21 23:06 Blood - Venous Blood Culture - Preliminary No growth after 48 hours. Procedures Date of Service Date of Service: 03/02/21 Assessment & Plan Assessment and plan (1) Adrenal nodule: Status: Acute Assessment and Plan: probably incidentaloma but would rule out secreting nodule no prior history of HTN, hypokalemia elevated blood pressure REC discontinue NS titrate amlodipine as needed PA/PRA cortisol plasma catecholamine follow kidney function and electrolytes Time Spent With Patient Time: Total time spent is greater than 50% in coordination of care (as documented) at patient's floor/unit and/or counseling patient: Progress Note: Quality Stroke Does the patient have a stroke diagnosis?: No
[2021-03-02] MEDS: Levothyroxine Sodium 200 MCG TABLET 400 MCG PO (09:31)
[2021-03-02] MEDS: PARoxetine HCL 40 MG TABLET PO (09:31)
[2021-03-02 09:32] VITALS: BP 140/90; PULSE 65
[2021-03-02] MEDS: amLODIPine Besylate 2.5 MG TABLET PO (09:32)
--- NOTE | 2021-03-02 09:36 | HO.PM.IMPN ---
Subjective Subjective Date of Service: 03/02/21 Interval History: Seen in f/u BP management, here SBO, clinically feeling better, NGT out, passing gas/ +bm again this morning, tolerating liquid diet BP is good, sugar is fine Review of Systems no fever no vomitn no abd pain passing flatus and has bowel movment Physical Exam Vital Signs: Vital Signs: Last Vital Signs Temp 96.9 F 03/02/21 08:00 Pulse 65 03/02/21 08:00 Resp 18 03/02/21 08:00 BP 140/90 H 03/02/21 08:00 Pulse Ox 97 03/02/21 08:00 Body Mass Index 54.3 Objective Data Active Medications Acetaminophen (Acetaminophen 325 Mg Tablet) 650 mg PO Q6H PRN PRN Reason: Pain, Mild (Pain Scale 1-3) Last Admin: 03/01/21 00:44 Dose: 650 mg Documented by: KALIE Albuterol Sulfate (Albuterol Sulfate 90 Mcg 8 Gm Inhaler) 2 puff INHALE Q4H PRN PRN Reason: wheezing Amlodipine Besylate (Amlodipine Besylate 2.5 Mg Tablet) 2.5 mg PO DAILY [facility]; Protocol Last Admin: 03/01/21 09:08 Dose: 2.5 mg Documented by: PATTI Dextrose (Dextrose 50 % 25 Gm/50 Ml Vial) 25 gm IVPUSH Q15M PRN; Protocol PRN Reason: per Hypoglycemia Standing Ord. Fluticasone Propionate (Fluticasone Propionate 250 Mcg Blst.W.Dev) 1 puff INHALE RBID [facility] Last Admin: 03/02/21 08:43 Dose: Not Given Documented by: ELIJAH Non-Admin Reason: Patient Refused Glucose (Glucose Gel 15 Gm Gel..Gram.) 15 gm PO Q15M PRN; Protocol PRN Reason: per Hypoglycemia Standing Ord. Heparin Sodium (Porcine) (Heparin Sodium,Porcine 5,000 Unit/Ml Vial) 5,000 unit SUBCUT Q8H [facility] Last Admin: 03/02/21 06:18 Dose: 5,000 unit Documented by: MARIANNA Sodium Chloride (Ns) 1,000 mls @ 100 mls/hr IVCONT .Q10H [facility] Last Admin: 03/01/21 23:04 Dose: 100 mls/hr Documented by: ISSAC Promethazine HCl 12.5 mg/ (Sodium Chloride) 50.5 mls @ 202 mls/hr IV Q6H PRN PRN Reason: Nausea and Vomiting Insulin Human Lispro (Insulin Lispro 100 Unit/Ml 3 Ml Vial) 0 unit SUBCUT Q6H [facility]; Protocol Last Admin: 03/02/21 08:33 Dose: Not Given Documented by: PATTI Non-Admin Reason: No Insulin Coverage Labetalol HCl (Labetalol Hcl 100 Mg/20 Ml Vial) 10 mg IVPUSH Q4H PRN PRN Reason: SBP > 160 Levothyroxine Sodium (Levothyroxine Sodium 200 Mcg Tablet) 400 mcg PO DAILY [facility] Last Admin: 03/01/21 07:47 Dose: 400 mcg Documented by: PATTI Morphine Sulfate (Morphine Sulfate 4 Mg/Ml Cartridge) 3 mg IVPUSH Q3H PRN; Protocol PRN Reason: Pain, Severe (Pain Scale 7-10) Last Admin: 02/28/21 00:36 Dose: 3 mg Documented by: THOMAS Omeprazole (Omeprazole 20 Mg Capsule.Dr) 20 mg PO BID@0630,1630 [facility] Last Admin: 03/02/21 06:16 Dose: 20 mg Documented by: MARIANNA Ondansetron HCl (Ondansetron Hcl 4 Mg/2 Ml Vial) 4 mg IVPUSH Q8H PRN PRN Reason: nausea Last Admin: 02/27/21 19:30 Dose: 4 mg Documented by: THOMAS Oxycodone HCl (Oxycodone Hcl Immed Release 5 Mg Tablet) 5 mg PO Q4H PRN PRN Reason: Pain, Moderate (Pain Scale 4-6 Last Admin: 03/01/21 09:19 Dose: 5 mg Documented by: PATTI Oxycodone HCl (Oxycodone Hcl Immed Release 5 Mg Tablet) 10 mg PO Q4H PRN PRN Reason: Pain, Severe (Pain Scale 7-10) Last Admin: 03/01/21 21:54 Dose: 10 mg Documented by: ISSAC Paroxetine HCl (Paroxetine Hcl 40 Mg Tablet) 40 mg PO DAILY [facility] Last Admin: 03/01/21 07:47 Dose: 40 mg Documented by: PATTI Sodium Chloride (0.9 % Sodium Chloride Flush 3 Ml Syringe) 3 ml IVFLUSH QSHIFT [facility] Last Admin: 03/02/21 00:39 Dose: Not Given Documented by: MARIANNA Non-Admin Reason: IV Running Labs CBC & Chem 7: 02/28/21 08:12 02/27/21 07:35 Labs: Laboratory Results - last 24 hr 03/01/21 03/01/21 03/01/21 11:26 12:39 16:21 POC Glucose 110 111 Random Cortisol 15.8 03/01/21 20:12 POC Glucose 116 H Random Cortisol Assessment and Plan (1) Adrenal nodule: Status: Acute (2) HTN (hypertension): Status: Acute (3) Morbid obesity: Status: Acute Assessment and Plan: 56 year old female morbidly obese, with diabetes, astham, history of colon cancer in 2019 s/p resection followed by chemo, history of hernia repair in the past now with SBO likely related to hernia. 1/SBO--clinically resolved, tolerating liquid diet, further management per surgery. 2/Diabetes--SSI, once on solid diet can restart meds. 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
[2021-03-02] MEDS: oxyCODONE HCl Immed Release 5 MG TABLET 10 MG PO (10:54)
--- NOTE | 2021-03-02 11:23 | PM.PNGS ---
Subjective Subjective Date of Service: 03/02/21 Interval history: Feels well. Tolerating clear liquid diet without difficulty. Wants to go home. Physical Exam Vital Signs: Vital Signs: Last Vital Signs Temp 96.9 F 03/02/21 08:00 Pulse 65 03/02/21 09:32 Resp 18 03/02/21 08:00 BP 140/90 H 03/02/21 09:32 Pulse Ox 97 03/02/21 08:00 Body Mass Index 54.3 Const: Orientation/consciousness: patient oriented x3 Resp: Effort & Inspection: normal respiratory effort Auscultation: clear to auscultation bilaterally Cardio: Rate: regular rate Rhythm: regular rhythm GI: Other: Obese, soft, nontender, normal bowel sounds Skin: Other: Warm and dry General skin exam: no rashes or lesions noted Neuro: General: patient oriented x3 Procedures Date of Service Date of Service: 03/02/21 Progress Note: A&P Assessment and plan (1) Adrenal nodule: Status: Acute (2) SBO (small bowel obstruction): Status: Acute (3) Diabetes: Status: Acute (4) HTN (hypertension): Status: Acute Assessment and Plan: Small-bowel obstruction resolving. Will advance to low residue diabetic diet. If she is able to tolerate this, anticipate discharge later today. Resume metformin if tolerating solid diet. Blood sugars in the low to mid 100s past 24 hours. Workup for adrenal mass in progress. Cortisol level is normal. Remainder of studies pending. Blood pressure still somewhat elevated. Started on Norvasc 2.5 mg daily today. Fall Risk Details Current Medications: Current Medications Acetaminophen (Acetaminophen 325 Mg Tablet) 650 mg PO Q6H PRN PRN Reason: Pain, Mild (Pain Scale 1-3) Last Admin: 03/01/21 00:44 Dose: 650 mg Documented by: Albuterol Sulfate (Albuterol Sulfate 90 Mcg 8 Gm Inhaler) 2 puff INHALE Q4H PRN PRN Reason: wheezing Amlodipine Besylate (Amlodipine Besylate 2.5 Mg Tablet) 2.5 mg PO DAILY [facility]; Protocol Last Admin: 03/02/21 09:32 Dose: 2.5 mg Documented by: Dextrose (Dextrose 50 % 25 Gm/50 Ml Vial) 25 gm IVPUSH Q15M PRN; Protocol PRN Reason: per Hypoglycemia Standing Ord. Fluticasone Propionate (Fluticasone Propionate 250 Mcg Blst.W.Dev) 1 puff INHALE RBID [facility] Last Admin: 03/02/21 08:43 Dose: Not Given Documented by: Glucose (Glucose Gel 15 Gm Gel..Gram.) 15 gm PO Q15M PRN; Protocol PRN Reason: per Hypoglycemia Standing Ord. Heparin Sodium (Porcine) (Heparin Sodium,Porcine 5,000 Unit/Ml Vial) 5,000 unit SUBCUT Q8H [facility] Last Admin: 03/02/21 06:18 Dose: 5,000 unit Documented by: Promethazine HCl 12.5 mg/ (Sodium Chloride) 50.5 mls @ 202 mls/hr IV Q6H PRN PRN Reason: Nausea and Vomiting Insulin Human Lispro (Insulin Lispro 100 Unit/Ml 3 Ml Vial) 0 unit SUBCUT Q6H [facility]; Protocol Last Admin: 03/02/21 08:33 Dose: Not Given Documented by: Labetalol HCl (Labetalol Hcl 100 Mg/20 Ml Vial) 10 mg IVPUSH Q4H PRN PRN Reason: SBP > 160 Levothyroxine Sodium (Levothyroxine Sodium 200 Mcg Tablet) 400 mcg PO DAILY [facility] Last Admin: 03/02/21 09:31 Dose: 400 mcg Documented by: Morphine Sulfate (Morphine Sulfate 4 Mg/Ml Cartridge) 3 mg IVPUSH Q3H PRN; Protocol PRN Reason: Pain, Severe (Pain Scale 7-10) Last Admin: 02/28/21 00:36 Dose: 3 mg Documented by: Omeprazole (Omeprazole 20 Mg Capsule.Dr) 20 mg PO BID@0630,1630 [facility] Last Admin: 03/02/21 06:16 Dose: 20 mg Documented by: Ondansetron HCl (Ondansetron Hcl 4 Mg/2 Ml Vial) 4 mg IVPUSH Q8H PRN PRN Reason: nausea Last Admin: 02/27/21 19:30 Dose: 4 mg Documented by: Oxycodone HCl (Oxycodone Hcl Immed Release 5 Mg Tablet) 5 mg PO Q4H PRN PRN Reason: Pain, Moderate (Pain Scale 4-6 Last Admin: 03/01/21 09:19 Dose: 5 mg Documented by: Oxycodone HCl (Oxycodone Hcl Immed Release 5 Mg Tablet) 10 mg PO Q4H PRN PRN Reason: Pain, Severe (Pain Scale 7-10) Last Admin: 03/02/21 10:54 Dose: 10 mg Documented by: Paroxetine HCl (Paroxetine Hcl 40 Mg Tablet) 40 mg PO DAILY [facility] Last Admin: 03/02/21 09:31 Dose: 40 mg Documented by: Sodium Chloride (0.9 % Sodium Chloride Flush 3 Ml Syringe) 3 ml IVFLUSH QSHIFT [facility] Last Admin: 03/02/21 09:37 Dose: Not Given Documented by: Time Spent With Patient Time: Total time spent is greater than 50% in coordination of care (as documented) at patient's floor/unit and/or counseling patient: Time with patient: 15 - 24 minutes Quality Stroke Does the patient have a stroke diagnosis?: No VTE Prior VTE?: No VTE Risk Level:: Medical - moderate - high VTE Device Contraindication: N/A - Device Ordered VTE Drug Contraindication: N/A - Med Ordered
[2021-03-02 11:39] VITALS: BP 124/90; PULSE 64; RESP 18; TEMP 36.4; O2SAT 96
[2021-03-02 12:05] LABS: Glucose, Whole Blood 125 mg/dL (60-115)
--- NOTE | 2021-03-02 14:11 | MHC.CM.PN ---
PLAN IS DISCHARGE HOME TODAY - SELF CARE. RN AWARE OF PLAN.
--- NOTE | 2021-03-03 12:07 | P.DS_ITS ---
DS: Providers Provider Date of Service: 03/02/21 Date of admission: 02/26/21 22:49 Primary care physician: Osei Fernández MD Attending physician on admission: Yogesh Summers Consults: 02/26/21 23:01 Consult to Hospitalist Routine Consulting Provider: Hospitalist Reason For Exam: DM, HTN 03/01/21 08:50 Consult to Nephrology Routine Consulting Provider: Saqib Pak Reason for consultation: adrenoma Has provider been notified: No DS: Diagnosis Discharge Diagnosis (1) Adrenal nodule: Status: Acute (2) SBO (small bowel obstruction): Status: Acute (3) Diabetes: Status: Acute (4) HTN (hypertension): Status: Acute DS: Summary Hospital Course Hospital Course: BRIEF HPI: Luisa Nieves is a 56 year old female who came to the emergency room last night because of abdominal pain and vomiting.? She said she had been doing well and was in her usual state of health until the night prior to her admission.? She says she had dinner with groin be even after that, she started to have abdominal pain and vomiting.? This persisted yesterday so she decided come to the emergency room last night. She says that she did not have a bowel movement yesterday although has been passing flatus well. This morning, she says that her pain has resolved.? She sa ys she does not have any pain or vomiting overnight since she had an NG tube placed. Her last episode of vomiting was on arrival in the ED. She has had multiple abdominal surgeries.? She had a lap band surgery about 7-8 years ago.? She says this was be removed 1 year later.? She developed a hernia after that.? She had colon resection in [facility] as well for colon cancer about 3 years ago.? She said she had a hernia repaired at least once in the past.? She said that she may have had recurrence of her hernia right after her hernia surgery about 3 years ago.? She says that she really has not had any problems with this otherwise.? She thinks that she has had this hernia since her last surgery 2-3 years ago. HOSPITAL COURSE: ?She was admitted to the surgical service for further treatment of the SBO. Her CAT scan was reviewed and it showed a large, wide-mouth hernia containing small bowel loops with a possible transition point in the bowel loops within the hernia. There did not appear to be any signs of strangulation. It was felt that the partial small-bowel obstruction may be secondary to adhesions within the hernia itself. In view of the absence of symptoms with evidence of GI function and a benign exam at this time, it was discussed that surgical intervention could be held for now with further plan dependent on clinical course.? The NG tube was kept in place and on IVF.? She had an uncomplicated hospital course. A hospitalist consult was obtained for management of her medical comorbidities which remained stable. She was found to have an adrenal mass, which nephrology was consulted for. This was thought to be an incidentaloma but r/o secreting nodule and workup for this was undergoing. The patient continued to be asymptomatic and had return of GI function. Her NGT was clamped for 4 hours and she had no residual output or symptoms following and it was therefore removed. Her diet was then advanced to clear liquids and then a low residue diet which she was tolerating. She did have an elevated SBP and was started on amlodipine 2.5mg PO daily. On the day of discharge, she was tolerating a solid diet without any abdominal pain, nausea or vomiting with good flatus and she had a benign abdominal exam. She was instructed to follow up with her PCP upon discharge and nephrology for the adrenal work up, as well as her surgeon if the abdominal hernias continued to bother her. She understood the plan. She was discharged to home on 03/02/21 in stable condition. Status at Discharge Functional status at discharge: independent ambulation Overall status at discharge: patient is progressing back to baseline Time Spent with Patient Time attestation: Total time spent providing and/or coordinating discharge services: Discharge coordination time: Greater than 30 minutes Quality: Stroke Does the patient have a stroke diagnosis?: No Physical Exam Vital Signs: Vital Signs: Last Vital Signs Temp 97.5 F 03/02/21 11:39 Pulse 64 03/02/21 11:39 Resp 18 03/02/21 11:39 BP 124/90 H 03/02/21 11:39 Pulse Ox 96 03/02/21 11:39 Body Mass Index 54.3 Const: General: comfortable, no acute distress and alert Orientation/consciousness: patient oriented x3 Resp: Effort & Inspection: normal respiratory effort GI: Inspection: No distended and Yes other (round) Palpation (GI): Soft to palpation, nontender, no guarding and not rigid Skin: General skin exam: no rashes or lesions noted Neuro: General: patient oriented x3 DS: Data Data Completed and Pending Labs on day of discharge: Preliminary micro results at discharge 02/27/21 00:18 Blood Culture - Preliminary Blood - Venous No growth after 48 hours. 02/26/21 23:06 Blood Culture - Preliminary Blood - Venous No growth after 48 hours. Discharge Plan Discharge Patient Disposition: Home, Self-Care Discharge Diagnosis: partial small bowel obstruction Referrals: Name,MD Osei [Primary Care Provider] - 1 Week Discharge Medications: New amlodipine 2.5 mg Tablet 2.5 mg PO DAILY Qty: 14 RF: 0 Continued metformin 500 mg tablet 1 tab PO BID RF: 0 aspirin 81 mg tablet,delayed release (DR/EC) 1 tab PO DAILY RF: 0 pantoprazole 20 mg tablet,delayed release (DR/EC) 1 tab PO DAILY RF: 0 lidocaine 5 % adhesive patch,medicated 1 patch topical DAILY RF: 0 levothyroxine 200 mcg tablet 400 mcg PO DAILY RF: 0 Flovent HFA 220 mcg/actuation HFA aerosol inhaler 1 puff inhalation BID RF: 0 oxycodone-acetaminophen 7.5-325 mg tablet 1 tab PO QID PRN (Reason: Pain, Moderate) RF: 0 zolpidem 10 mg tablet 1 tab PO BEDTIME PRN (Reason: Sleep) RF: 0 paroxetine HCl 40 mg tablet 1 tab PO DAILY RF: 0 cholecalciferol (vitamin D3) 25 mcg (1,000 unit) capsule 1 cap PO DAILY RF: 0 multivitamin with folic acid [Daily-Loida (with folic acid)] 400 mcg tablet 1 tab PO DAILY RF: 0 Discharge Orders: Discharge Order (Routine); Ordered 03/02/21 Ordered By: Chanell Greene Diet: advance to usual diet Activity on Discharge: As tolerated Stand Alone Forms: Patient Portal Discharge page Care Plan Goals: Control hypertension Monitor hernia Health Concerns: Hypertension Incisional hernia Plan of Treatment: Blood pressure control Possible repair of incisional hernia down the line if this remains symptomatic Follow up adrenal nodule Assessment: Doing well overall Discharge Date/Time: 03/02/21 15:14
--- NOTE | 2021-03-03 13:41 | CONS_ITS ---
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 The patient denies any prior history of hypertension. She denies any history of low potassium, dizziness, sweating, lightheadedness, or headaches. At the time of the consultation, she denies any chest pain or shortness of breath. There is no report of nausea, vomiting, or diarrhea. PAST MEDICAL HISTORY: Remarkable for diabetes mellitus, colon cancer, asthma, obesity, thyroid cancer. MEDICATIONS: At home included aspirin, inhalers, metformin, pantoprazole, paroxetine. ALLERGIES: SHE IS ALLERGIC TO PENICILLIN, STEROIDS. SOCIAL HISTORY: Does not smoke. FAMILY HISTORY: Negative for kidney disease. REVIEW OF SYSTEMS: 10-point review of systems negative except for pertinent in the history of present illness. PHYSICAL EXAMINATION: VITAL SIGNS: Her blood pressure is 140/70, heart rate 78, respiratory rate 20, afebrile. CONSTITUTIONAL: Looks her , in no acute distress. NEUROLOGIC: Alert, awake. HEAD: Atraumatic, normocephalic. NECK: Supple. LUNGS: Good air entry bilaterally. CARDIOVASCULAR: S1 and S2. No rub. ABDOMEN: Obese, nontender. EXTREMITIES: peripheral edema. LABS: Showed a sodium 139, potassium 4.4, chloride 101, carbon dioxide 29, BUN 13, creatinine 0.79. IMPRESSION: Right adrenal nodule. This is a patient with no prior history of hypertension, hypokalemia, who was found to have a right adrenal nodule that had increased in size to 1.8 cm. This could be an incidentaloma. reasonable to go ahead with biochemical workup and I would check a plasma aldosterone, plasma renin activity, cortisol, and metanephrine. I will continue to follow along with the medical team. Thank you for allowing me to participate in the care of this patient. MD ALLYN Lewis/EJ / [phone]
[2021-03-08 11:31] LABS: Catecholamine Frac, Total 319 pg/mL
[2021-03-09 18:22] LABS: Aldosterone/Renin Ratio 6.3 Ratio (0.9-28.9); Plasma Renin Activity 0.32 ng/mL/h (0.25-5.82)
== END 2021-03-02 15:14 | disposition home or self-care (01) | DRG 254 ==
LOC: HO.ED 22:59 → HO.EDOVER 23:18 → HO.S3 02-27 03:05
PROVIDERS: Internal Medicine; Physician Assistant Surgical; Admitting Provider Surgery; Emergency Provider Student in an Organized Health Care Education/Training Program; PCP Internal Medicine Geriatric Medicine; Visit Provider Surgery
DX: K43.0 Incisional hernia with obstruction, without gangrene (principal); E66.01 Morbid (severe) obesity due to excess calories; E11.9 Type 2 diabetes mellitus without complications; E27.9 Disorder of adrenal gland, unspecified; E03.9 Hypothyroidism, unspecified; J45.909 Unspecified asthma, uncomplicated; Z85.038 Personal history of other malignant neoplasm of large intestine; Z98.84 Bariatric surgery status; Z68.43 Body mass index [BMI] 50.0-59.9, adult; Z20.822 Contact with and (suspected) exposure to COVID-19; Z79.82 Long term (current) use of aspirin; Z88.0 Allergy status to penicillin; Z79.84 Long term (current) use of oral hypoglycemic drugs; Z79.899 Other long term (current) drug therapy
CPT/HCPCS: 36415; 71045; 74018; 74176; 80048; 80076; 82088; 82384; 82533; 82947; 83605; 83690; 85025; 87040; 87635; 93005; 99285; J1200; J2270; J2405

== ENCOUNTER 2022-02-10 07:16 | Outpatient (REF) | payer MEDICAID, SELFPAY ==
--- NOTE | ~2022-02-10 | XR_ITS ---
EXAMINATION: XR knee standing BI, XR knee RT 2V CLINICAL INFORMATION: Reason for Exam M25.569 - Pain in unspecified knee COMPARISON: None. TECHNIQUE: Two views of the right knee and one view of the bilateral knees standing. XR/XR knee RT 2V FINDINGS/IMPRESSION: * No acute fracture or dislocation. * Advanced degenerative changes of the bilateral knees with complete loss of medial compartment joint space, tricompartmental osteophytes and valgus angulation of the knees. * No right suprapatellar joint effusion.
--- NOTE | ~2022-02-10 | XR_ITS ---
EXAMINATION: XR knee standing BI, XR knee RT 2V CLINICAL INFORMATION: Reason for Exam M25.569 - Pain in unspecified knee COMPARISON: None. TECHNIQUE: Two views of the right knee and one view of the bilateral knees standing. XR/XR knee standing BI FINDINGS/IMPRESSION: * No acute fracture or dislocation. * Advanced degenerative changes of the bilateral knees with complete loss of medial compartment joint space, tricompartmental osteophytes and valgus angulation of the knees. * No right suprapatellar joint effusion.
== END 2022-02-10 07:17 | disposition home or self-care (01) ==
LOC: HO.HOSX 07:16
PROVIDERS: Visit Provider Physician Assistant
DX: M17.11 Unilateral primary osteoarthritis, right knee (principal); E66.01 Morbid (severe) obesity due to excess calories; E11.9 Type 2 diabetes mellitus without complications
CPT/HCPCS: 73560; 73565; 99202

== ENCOUNTER 2022-03-05 14:11 | Outpatient (REF) | payer MEDICAID, SELFPAY ==
--- NOTE | 2022-03-05 09:45 | EMG_ITS ---
Left median and ulnar motor and sensory studies were performed, left radial sensory study was performed, and paraspinal muscles were tested with a needle. IMPRESSION: 1. Moderately severe left median neuropathy across carpal tunnel. 2. Moderately severe left ulnar neuropathy across cubital tunnel. MD ROBYN Carlisle/EJ / [phone]
== END 2022-03-05 14:12 | disposition home or self-care (01) ==
LOC: HO.NEURO 14:11
PROVIDERS: Visit Provider Emergency Medicine
DX: M79.642 Pain in left hand (principal)
CPT/HCPCS: 95886; 95909

== ENCOUNTER → 2022-03-20 09:20 | Outpatient (BNVA) | payer MEDICAID, SELFPAY | PROVIDERS: PCP Internal Medicine Geriatric Medicine; Visit Provider Physician Assistant | DX: M17.11 Unilateral primary osteoarthritis, right knee (principal) | CPT/HCPCS: 20610; 99212; J7323 ==

== ENCOUNTER → 2022-03-27 09:30 | Outpatient (BNVA) | payer MEDICAID, SELFPAY | PROVIDERS: PCP Internal Medicine Geriatric Medicine; Visit Provider Physician Assistant | DX: M17.11 Unilateral primary osteoarthritis, right knee (principal) | CPT/HCPCS: 20610; J7323 ==

== ENCOUNTER → 2022-04-17 11:22 | Outpatient (BNVA) | payer MEDICAID, SELFPAY | PROVIDERS: PCP Internal Medicine Geriatric Medicine; Visit Provider Physician Assistant | DX: M17.11 Unilateral primary osteoarthritis, right knee (principal); M25.561 Pain in right knee | CPT/HCPCS: 20610; J7323 ==

== ENCOUNTER 2022-09-09 11:41 | Outpatient (REF) | payer MEDICAID, SELFPAY ==
--- NOTE | ~2022-09-09 | US_ITS ---
EXAMINATION: US VENOUS WITH DOPPLER UPPER EXTREMITY, RIGHT CLINICAL INFORMATION: Swelling. COMPARISON: None available. TECHNIQUE: Ultrasound of the upper extremity is performed using compression sonography and color and pulse Doppler flow with assessment of augmentation of flow. There is also imaging and Doppler assessment of the jugular and subclavian veins. Spectral analysis with color-flow imaging is performed. FINDINGS: Respiratory variation, normal compression, and augmented flow are noted throughout the upper extremity including the axillary, brachial, cubital, and radial and ulnar veins. There is normal flow in the internal jugular and subclavian veins. There is no visible deep or superficial thrombophlebitis. If the patient's symptoms progress, a followup ultrasound in 5 -7 days might be of value to exclude proximal propagation from a nonvisualized distal arm vein. US/US venous duplex UE RT IMPRESSION: No DVT demonstrated in the right upper extremity
== END 2022-09-09 11:42 | disposition home or self-care (01) ==
LOC: HO.US 11:41
PROVIDERS: PCP Internal Medicine Geriatric Medicine; Visit Provider Internal Medicine Geriatric Medicine
DX: R60.0 Localized edema (principal); Z85.038 Personal history of other malignant neoplasm of large intestine
CPT/HCPCS: 93971

== ENCOUNTER 2022-12-30 19:00 | Outpatient (REF) | payer MEDICAID, SELFPAY ==
[2022-12-30 19:14] LABS: Appearance Urine Cloudy; Color Urine Yellow; Glucose Urine UA Negative (Negative); Leukocyte Esterase Urine Moderate (2+) (Negative); Nitrite Urine Negative (Negative); PH 5.5 (5.0-9.0); Specific Gravity - Urine >= 1.030 (1.005-1.025); UMIC TRIGGER UACC YES; Urine Blood Negative (Negative); Urine Ketones Trace mg/dL (Negative); Urine Protein Trace mg/dL (Neg-Trace)
[2022-12-30 19:38] LABS: Bacteria Urine 4+ (None Seen); Hyaline Casts Urine 0-2 /LPF (0-2); Squamous Epithelial Cell Urine >20 /HPF (0-2); UACC Culture Trigger YES; WBC Urine 21-50 /HPF (0-5)
== END 2022-12-30 19:01 | disposition home or self-care (01) ==
LOC: HO.HHCLNP 19:00
PROVIDERS: Visit Provider Family Medicine
DX: N39.0 Urinary tract infection, site not specified (principal)
CPT/HCPCS: 81001; 87086

== ENCOUNTER 2023-02-17 11:47 | Outpatient (AMB) | payer MEDICAID, SELFPAY ==
--- NOTE | 2023-02-17 12:01 | A.OFFVIS_ITS ---
Intake Intake Visit Reasons: Newprob-Left wrist CTS-looking for injection Intake Note: Luisa 57 yr old female presents today for her numbness and tingling for her left wrist. States CTS started a few years ago but has symptoms have recently worsen. Currently states she has weakness in hands and therefore she drops items. Denies injection, bracing or O.T.EMG done. Allergies cortisone [CORTISONE] Allergy (Mild, Verified 02/17/23 12:07) RASH Penicillins [PENICILLINS] Allergy (Mild, Verified 02/17/23 12:07) RASH bee pollen [BEE STINGS] Allergy (Unknown, Verified 02/17/23 12:07) ANAPHYLAXIS penicillin V Allergy (Unknown, Verified 02/17/23 12:07) Itching Cortisone Allergy (Unknown, Uncoded 02/17/23 12:07) Itching Medication List - Last Reconciled 02/17/23 by Kathy Avilez MD acetic acid 2% mL otic (ear) left albuterol sulfate 90 mcg/actuation (ProAir HFA) 2 puffs inhalation Q4-6H PRN amitriptyline 10 mg PO BEDTIME amlodipine 2.5 mg See Protocol PO DAILY aspirin 1 tab PO DAILY bupropion HCl 150 mg PO QAM celecoxib 100 mg PO DAILY cholecalciferol (vitamin D3) 1 cap PO DAILY clindamycin HCl 600 mg PO Q8H diclofenac sodium 1% 2 grams topical BID docusate sodium 100 mg PO BID epinephrine IM fluticasone propionate 220 mcg/actuation (Flovent HFA) 1 puff inhalation BID fluticasone propionate 50 mcg/actuation 2 sprays intranasal DAILY gabapentin 300 mg PO DAILY PRN hydrocortisone 1% topical DAILY levothyroxine 400 mcg PO DAILY lidocaine 5% 1 patch topical DAILY losartan 25 mg PO DAILY metformin 1 tab PO BID metformin 1,000 mg PO multivitamin with folic acid 400 mcg (Daily-Loida (with folic acid)) 1 tab PO DAILY naloxone 4 mg/actuation (Narcan) 0 sprays intranasal ondansetron HCl 4 mg PO TID PRN oxycodone-acetaminophen 7.5-325 mg 1 tab PO QID PRN pantoprazole 1 tab PO DAILY paroxetine HCl 1 tab PO DAILY tizanidine 2 mg PO Q12H PRN zolpidem 1 tab PO BEDTIME PRN HPI HPI Comments History of Present Illness Details Here with boyfriend. Helped with translation. She reports chronic numbness, worse for past 2 months. Worst numbness and cramping on left middle. Left worse than right. Drops things. 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 Treatment done so far: NSAIDs Allergy to cortisone. [facility] Medical History (Updated 02/17/23 @ 12:17 by Kathy Avilez MD) Carpal tunnel syndrome of left wrist Asthma Morbid obesity Diabetes Colon cancer Thyroid cancer Social History Household Members: Family Housing: House Patient Tobacco Use Status: Never used Tobacco service: No Current occupational status: disabled Review of Systems Const All systems reviewed & are unremarkable except as noted in HPI and below Physical Exam Constitutional: Patient appears to be in no acute distress, well nourished and well developed. MSK: Inspection reveals appropriate head and neck positioning. No pain with palpation over the neck musculature. Cervical ROM was full. Spurling's sign negative. Bilateral shoulder ROM WNL. No ligamentous laxity or crepitance. No increased effusion. Hawkin's test is negative. No joint effusion noted. No deformity noted. No intrinsic hand weakness noted. No atrophy noted. Hermilo test negative. Carpal compression test positive bilateral. Tinel sign negative. Some triggering on left middle/3rd digit, without nodule. Strength is 5/5 in all muscle groups tested. No increased tone noted. Neurological: Neurologic examination of the upper and lower extremities was nonfocal with intact sensation, muscle stretch reflexes and without focal motor deficits . Lopez?s negative bilaterally. Gait is non-antalgic without loss of balance. Results Reviewed Results Reviewed: I independently reviewed the results of the following: EMG done by Dr. Vazquez showed left median neuropathy at the wrist and left ulnar neuropathy at the elbow. Final report: IMPRESSION: 1. Moderately severe left median neuropathy across carpal tunnel. 2. Moderately severe left ulnar neuropathy across cubital tunnel. Assessment & Plan Assessment & Plan (1) Carpal tunnel syndrome of left wrist: Code(s): G56.02 - Carpal tunnel syndrome, left upper limb Plan: Diagnosis of left Carpal Tunnel Syndrome and ulnar neuropathy at elbow on EMG done by Dr. Vazquez. Patient has been having symptoms for many years. She has allergy to cortisone so should not/cannot have steroid injection. We discussed possibility of surgery and she would like to proceed. We will have her scheduled under Dr. Bills. Procedure, risks and benefits discussed. In the meantime, we will provide wrist splints to be worn at night. (2) Numbness of right hand: Code(s): R20.0 - Anesthesia of skin Plan: Will schedule her for EMG of right hand (3) Trigger finger of left hand: Code(s): M65.30 - Trigger finger, unspecified finger Qualifiers: Trigger finger location: middle finger Qualified Code(s): M65.332 - Trigger finger, left middle finger Plan: Complains of some triggering on left middle finger but no nodule on exam. Splinting might help. Plan Assessment and plan discussed with patient, and patient was agreeable. All questions were answered thoroughly. Kathy Avilez MD, SARAH Board Certified, [place] [employer] and [employer] (ABPMR) Board Certified, [place] [employer] Electro[employer] (ABEM) Orders: Orders NE electromyogram (EMG) Today R20.0 - Anesthesia of skin NE nerve conduction velocity Today R20.0 - Anesthesia of skin Coding Level of Care Code New Pt Level 4 (35558) Diagnoses Carpal tunnel syndrome of left wrist G56.02 Numbness of right hand R20.0 Trigger middle finger of left hand M65.332 Trigger finger location: middle finger
== END 2023-02-17 12:45 | disposition home or self-care (01) ==
PROVIDERS: PCP Internal Medicine Geriatric Medicine; Visit Provider Physical Medicine & Rehabilitation
DX: G56.02 Carpal tunnel syndrome, left upper limb (principal); R20.0 Anesthesia of skin; M65.332 Trigger finger, left middle finger
CPT/HCPCS: 99204

== ENCOUNTER → 2023-02-17 11:47 | Outpatient (BNVA) | payer MEDICAID, SELFPAY | PROVIDERS: PCP Internal Medicine Geriatric Medicine; Visit Provider Physical Medicine & Rehabilitation | DX: G56.02 Carpal tunnel syndrome, left upper limb (principal); R20.0 Anesthesia of skin; M65.332 Trigger finger, left middle finger | CPT/HCPCS: 99202 ==

== ENCOUNTER 2023-02-26 14:40 | Outpatient (REF) | payer MEDICAID, SELFPAY ==
--- NOTE | ~2023-02-26 | US_ITS ---
EXAMINATION: US VENOUS WITH DOPPLER UPPER EXTREMITY, RIGHT CLINICAL INFORMATION: Swelling. COMPARISON: 09/09/2022. TECHNIQUE: Ultrasound of the upper extremity is performed using compression sonography and color and pulse Doppler flow with assessment of augmentation of flow. There is also imaging and Doppler assessment of the jugular and subclavian veins. Spectral analysis with color-flow imaging is performed. FINDINGS: Respiratory variation, normal compression, and augmented flow are noted throughout the upper extremity including the axillary, brachial, cubital, and radial and ulnar veins. There is normal flow in the internal jugular and subclavian veins. There is no visible deep or superficial thrombophlebitis. If the patient's symptoms progress, a followup ultrasound in 5 -7 days might be of value to exclude proximal propagation from a nonvisualized distal arm vein. US/US venous duplex UE RT IMPRESSION: No DVT demonstrated in the right upper extremity.
== END 2023-02-26 14:41 | disposition home or self-care (01) ==
LOC: HO.HMGCX 14:40
PROVIDERS: PCP Internal Medicine Geriatric Medicine; Visit Provider Family Medicine
DX: R22.31 Localized swelling, mass and lump, right upper limb (principal); M79.621 Pain in right upper arm
CPT/HCPCS: 93971

== ENCOUNTER 2023-03-04 14:48 | Outpatient (REF) | payer MEDICAID, SELFPAY ==
--- NOTE | 2023-03-04 15:24 | EMG_ITS ---
Chief complaint: Right hand numbness EMG by Dr. Vazquez on left upper extremity already showed Carpal Tunnel Syndrome and ulnar neuropathy at the elbow Reason for referral: Evaluate for right Carpal Tunnel Syndrome Procedure done: Right upper extremity NCS/EMG Precautions and/or limitations: None The limb temperature was monitored continuously and remained between 32-36 degrees C during the performance of the NCS. Nerve Conduction Studies Anti Sensory Summary Table ?Stim Site NR Onset (ms) Norm Onset (ms) Peak (ms) Norm Peak (ms) O-P Amp (?V) Norm O-P Amp Site1 Site2 Delta-0 (ms) Dist (cm) Frn[place]isco (m/s) Norm Francisco (m/s) Right Median Anti Sensory (2nd Digit) Wrist NR <3.6 >10 Wrist 2nd Digit 14.0 Right Radial Anti Sensory (Thumb) Forearm ? 1.7 2.0 <3.1 31.5 Forearm Thumb 1.7 0.0 Right Ulnar Anti Sensory (5th Digit) Wrist ? 3.2 3.8 <3.7 5.2 >15.0 Wrist 5th Digit 3.2 14.0 44 Motor Summary Table ?Stim Site NR Onset (ms) Norm Onset (ms) O-P Amp (mV) Norm O-P Amp iAmp (mV) Amp (1st) (%) Site1 Site2 Delta-0 (ms) Dist (cm) Francisco (m/s) Norm Francisco (m/s) Right Median Motor (Abd Poll Brev) Wrist ? 7.3 <3.9 7.7 >4.5 9.1 100.0 Elbow Wrist 4.3 22.0 51 >45 Elbow ? 11.6 5.9 7.2 76.6 Right Ulnar Motor (Abd Dig Minimi) Wrist ? 2.4 <3.0 3.7 >5 4.6 100.0 B Elbow Wrist 3.8 17.0 45 >45 B Elbow ?? 6.2 2.5 3.1 67.6 A Elbow B Elbow 2.3 10.0 43 >45 A Elbow ? 8.5 2.1 2.5 56.8 EMG ?Side Muscle Nerve Root Ins Act Fibs Psw Amp Dur Poly Recrt Int Pat Comment Right 1stDorInt Ulnar C8-T1 Nml Nml Nml Nml Nml 0 Nml Complete Right FlexCarRad Median C6-7 Nml Nml Nml Nml Nml 0 Nml Complete Right Biceps Musculocut C5-6 Nml Nml Nml Nml Nml 0 Nml Complete Right Triceps Radial C6-7-8 Nml Nml Nml Nml Nml 0 Nml Complete Right Deltoid Axillary C5-6 Nml Nml Nml Nml Nml 0 Nml Complete FINDINGS: Right median motor nerve showed prolonged distal latency, normal amplitude and normal conduction velocity. Right ulnar motor nerve showed distal latency, small amplitude and slow conduction velocity across the elbow. Right median sensory nerve showed absent response. Right ulnar sensory nerve showed prolonged peak latency and small amplitude. All other nerves tested were within normal. Concentric needle EMG was performed in selected muscles of the right upper extremity. Study did not reveal signs of electric abnormalities as shown in the table below. IMPRESSION: 1. This is an abnormal study. 2. There is electrodiagnostic evidence for right moderate-severe median neuropathy at the wrist, consistent with carpal tunnel syndrome. 3. There is electrodiagnostic evidence for right ulnar neuropathy at the elbow. 4. There is no electrodiagnostic evidence for ulnar neuropathy, brachial plexopathy, or cervical radiculopathy. Thank you for your kind referral. Kathy Avilez MD, SARAH Board Certified, [place] [employer] and [employer] (ABPMR) Board Certified, [place] [employer] Electro[employer]ostic [employer] (ABEM) [place] [id number] [facility]
== END 2023-03-04 14:49 | disposition home or self-care (01) ==
LOC: HO.NEURO 14:48
PROVIDERS: PCP Internal Medicine Geriatric Medicine; Visit Provider Physical Medicine & Rehabilitation
DX: R20.0 Anesthesia of skin (principal)
CPT/HCPCS: 95886; 95909

== ENCOUNTER → 2023-03-04 15:24 | Outpatient (BNV) | payer MEDICAID, SELFPAY | PROVIDERS: PCP Internal Medicine Geriatric Medicine; Visit Provider Physical Medicine & Rehabilitation | DX: G56.11 Other lesions of median nerve, right upper limb (principal); G56.01 Carpal tunnel syndrome, right upper limb; G56.21 Lesion of ulnar nerve, right upper limb | CPT/HCPCS: 95886; 95909 ==

== ENCOUNTER 2023-03-08 10:05 | Outpatient (REF) | payer MEDICAID, SELFPAY ==
[2023-03-08 11:38] LABS: MANUAL DIFF FLAG NO
[2023-03-08 11:49] LABS: Basophils Absolute Auto 0.1 X10*3/uL (0.0-0.2); Basophils Percent Auto 0.7 % (0-2); Eosinophils Absolute Auto 0.3 X10*3/uL (0.0-0.4); Eosinophils Percent Auto 3.4 % (0-4); Hematocrit 30.9 % (37.0-47.0); Hemoglobin 9.4 g/dl (12.0-16.0); Imm Gran Abs Auto 0.02 X10*3/uL (0.00-0.03); Imm Gran Pct Auto 0.2 % (0.0-0.4); Lymphocytes Absolute Auto 1.9 X10*3/uL (1.2-4.9); Lymphocytes Percent Auto 23.3 % (20-40); Mean Corpuscular HGB Conc 30.4 g/dl (31.0-35.0); Mean Corpuscular Hemoglobin 23.1 pg (27.0-33.0); Mean Corpuscular Volume 75.9 fL (80.0-98.0); Mean Platelet Volume 12.9 fL (9.4-12.3); Monocytes Absolute Auto 0.6 X10*3/uL (0.1-1.2); Monocytes Percent Auto 7.1 % (2-11); Neutrophils Absolute Auto 5.3 x10*3/uL (2.0-8.3); Neutrophils Percent Auto 65.3 % (45-73); Platelet Count 302 X10*3/uL (160-400); Red Blood Count 4.07 X10*6/uL (4.20-5.50); Red Cell Distribution Width 15.7 % (11.0-16.0); White Blood Count 8.2 X10*3/uL (4.8-10.8)
[2023-03-08 12:23] LABS: Alanine Aminotransferase 32 U/L (0-31); Albumin Level 3.9 g/dL (3.5-5.0); Alkaline Phosphatase 80 U/L (39-117); Anion Gap 14 (12-20); Aspartate Amino Transferase 23 U/L (5-31); Bilirubin Total 0.3 mg/dL (0.0-1.0); Blood Urea Nitrogen 14 mg/dL (9-16); Calcium 9.4 mg/dL (8.4-10.2); Carbon Dioxide 27 mmol/L (22-29); Chloride 105 mmol/L (96-108); Cholesterol 148 mg/dL (<200); Estimated Glomerular Filt Rate > 60; Glucose Random 109 mg/dL (60-115); HDL Cholesterol 45 mg/dL (>40); LDL Cholesterol Calculated 89 mg/dL (<100); Potassium 4.3 mmol/L (3.3-5.1); Sodium 142 mmol/L (135-145); Total Protein 7.3 g/dL (6.5-8.0); Triglycerides 73 mg/dL (<150)
[2023-03-08 12:24] LABS: TSH reflex Free T4 0.64 uIU/mL (0.32-4.0)
[2023-03-08 12:42] LABS: Vitamin B12 401 pg/mL (200-900)
== END 2023-03-08 10:06 | disposition home or self-care (01) ==
LOC: HO.HHCL 10:05
PROVIDERS: Visit Provider Internal Medicine Geriatric Medicine
DX: E11.69 Type 2 diabetes mellitus with other specified complication (principal); E66.9 Obesity, unspecified; I10 Essential (primary) hypertension; M17.9 Osteoarthritis of knee, unspecified; E03.9 Hypothyroidism, unspecified; G89.4 Chronic pain syndrome; R20.0 Anesthesia of skin; R20.2 Paresthesia of skin; Z85.850 Personal history of malignant neoplasm of thyroid
CPT/HCPCS: 36415; 80053; 80061; 82607; 82746; 84443; 85025

== ENCOUNTER 2023-05-27 11:35 | Outpatient (REF) | payer MEDICAID, SELFPAY ==
--- NOTE | ~2023-05-27 | XR_ITS ---
EXAMINATION: XR KNEE, LEFT CLINICAL INFORMATION: Fall COMPARISON: None available. TECHNIQUE: Four views of the left knee. FINDINGS: No acute visible fracture or dislocation. Moderate to severe multicompartment arthritic changes greatest along the medial femorotibial compartment. Enthesopathy at the quadriceps tendon insertion site. Periarticular aspect along the tibial plateau, distal femoral condyle, and superior and inferior poles of the patella. Nonspecific thickening along the posterior medial cortex of the proximal tibial diaphysis. Joint spaces and alignment are otherwise maintained. No large knee joint effusion. Soft tissues are unremarkable. XR/XR knee LT 4V IMPRESSION: 1. No acute visible fracture or dislocation. 2. Moderate to severe multicompartment arthritic changes greatest along the medial femorotibial compartment. 3. Nonspecific thickening along the posterior medial cortex of the proximal tibial diaphysis.
--- NOTE | ~2023-05-27 | XR_ITS ---
EXAMINATION: XR ANKLE, LEFT CLINICAL INFORMATION: Status post fall COMPARISON: None available. TECHNIQUE: AP, lateral, and mortise views of the left ankle. FINDINGS: Acute mildly displaced oblique fracture of the distal fibular diaphysis/metadiaphysis at the level of the ankle mortise. Punctate ossific focus at the inferior margin of the medial malleolus may reflect sequela of trauma, chronicity indeterminate. Ankle mortise is symmetric. Plantar calcaneal heel spur. Enthesopathy at the Achilles tendon insertion site. Spurring the dorsal midfoot. Soft tissue swelling along the lateral malleolus. XR/XR ankle LT min 3V IMPRESSION: 1. Acute mildly displaced oblique fracture of the distal fibular diaphysis/metadiaphysis at the level of the ankle mortise. 2. Punctate ossific focus at the inferior margin of the medial malleolus may reflect sequela of trauma, chronicity indeterminate. 3. Mild degenerative changes. 4. Soft tissue swelling along the lateral malleolus with enthesopathy at the Achilles tendon insertion site and plantar calcaneal heel spur.
== END 2023-05-27 11:36 | disposition home or self-care (01) ==
LOC: HO.HHCX 11:35
PROVIDERS: Visit Provider Internal Medicine
DX: M25.562 Pain in left knee (principal); S93.402A Sprain of unspecified ligament of left ankle, initial encounter; X58.XXXA Exposure to other specified factors, initial encounter; Y93.9 Activity, unspecified; Y92.9 Unspecified place or not applicable; Y99.9 Unspecified external cause status
CPT/HCPCS: 73564; 73610

== ENCOUNTER 2023-05-27 13:32 | Emergency (ER) | payer MEDICAID, SELFPAY ==
[2023-05-27 14:22] VITALS: BP 150/60; PULSE 57; RESP 18; O2SAT 98; BMI 50.4
--- NOTE | 2023-05-27 14:58 | ED_ITS ---
HPI - Extremity Injury (Lower) General Chief Complaint: Extremity Injury, Lower Stated Complaint: l foot inj hairline fx sent from [facility] Time Seen by Provider: 05/27/23 18:01 Source: patient and family Mode of arrival: ambulatory History of Present Illness HPI Narrative: 58-year-old female who states that she injured her left foot when she fell Wednesday off of her bed. X-ray at her primary care provider showed fracture. Related Data Home Medications Medication Instructions Recorded Confirmed aspirin 81 mg tablet,delayed 1 tab PO DAILY 02/26/21 02/17/23 release cholecalciferol (vitamin D3) 25 1 cap PO DAILY 02/26/21 02/17/23 mcg (1,000 unit) capsule fluticasone propionate 220 1 puff inhalation BID 02/26/21 02/17/23 mcg/actuation HFA aerosol inhaler (Flovent HFA) levothyroxine 200 mcg tablet 400 mcg PO DAILY 02/26/21 02/17/23 lidocaine 5 % topical patch 1 patch topical DAILY 02/26/21 02/17/23 metformin 500 mg tablet 1 tab PO BID 02/26/21 02/17/23 multivitamin with folic acid 400 1 tab PO DAILY 02/26/21 02/17/23 mcg tablet (Daily-Loida (with folic acid)) oxycodone-acetaminophen 7.5 mg-325 1 tab PO QID PRN Pain, Moderate 02/26/21 02/17/23 mg tablet pantoprazole 20 mg tablet,delayed 1 tab PO DAILY 02/26/21 02/17/23 release paroxetine HCl 40 mg tablet 1 tab PO DAILY 02/26/21 02/17/23 zolpidem 10 mg tablet 1 tab PO BEDTIME PRN Sleep 02/26/21 02/17/23 acetic acid 2 % ear solution ml otic (ear) left 02/10/22 02/17/23 albuterol sulfate 90 mcg/actuation 2 puff inhalation Q4-6H PRN 02/10/22 02/17/23 aerosol inhaler (ProAir HFA) amitriptyline 10 mg tablet 10 mg PO BEDTIME 02/10/22 02/17/23 bupropion HCl 150 mg 24 hr tablet, 150 mg PO QAM 02/10/22 02/17/23 extended release celecoxib 100 mg capsule 100 mg PO DAILY 02/10/22 02/17/23 clindamycin HCl 300 mg capsule 600 mg PO Q8H 02/10/22 02/17/23 diclofenac sodium 1 % topical gel 2 g topical BID 02/10/22 02/17/23 docusate sodium 100 mg capsule 100 mg PO BID 02/10/22 02/17/23 epinephrine 0.3 mg/0.3 mL IM 02/10/22 02/17/23 injection, auto-injector fluticasone propionate 50 2 spray intranasal DAILY 02/10/22 02/17/23 mcg/actuation nasal spray,suspension gabapentin 300 mg capsule 300 mg PO DAILY PRN pain 02/10/22 02/17/23 hydrocortisone 1 % topical cream topical DAILY 02/10/22 02/17/23 with perineal applicator losartan 25 mg tablet 25 mg PO DAILY 02/10/22 02/17/23 metformin 1,000 mg tablet 1,000 mg PO 02/10/22 02/17/23 naloxone 4 mg/actuation nasal 0 spray intranasal 02/10/22 02/17/23 spray (Narcan) ondansetron HCl 4 mg tablet 4 mg PO TID PRN nausea 02/10/22 02/17/23 tizanidine 2 mg tablet 2 mg PO Q12H PRN pain 02/10/22 02/17/23 Previous Rx's Medication Instructions Recorded amlodipine 2.5 mg tablet 2.5 mg PO DAILY #14 tabs 03/02/21 Allergies Allergy/AdvReac Type Severity Reaction Status Date / Time cortisone [CORTISONE] Allergy Mild RASH Verified 02/17/23 12:07 Penicillins [PENICILLINS] Allergy Mild RASH Verified 02/17/23 12:07 bee pollen [BEE STINGS] Allergy Unknown ANAPHYLAXIS Verified 02/17/23 12:07 penicillin V Allergy Unknown Itching Verified 02/17/23 12:07 Cortisone Allergy Unknown Itching Uncoded 02/17/23 12:07 Review of Systems Review of Systems: Pertinent positives and negatives as stated in [facility] Past Medical History Source: nursing notes reviewed Onset Date is defined in the Problem List Problems that require an onset date and time if occurred within 24 hrs of arrival to the ED Aortic Dissection and Rupture; Neurologic impairment; Cardiopulmonary Arrest; Endotracheal Intubation; Insertion or Replacement of Mechanical Circulatory Assist Device Medical History Carpal tunnel syndrome of left wrist Asthma Morbid obesity Diabetes Colon cancer Thyroid cancer Social History Social History Household Members: Family Housing: House Patient Tobacco Use Status: Never used Tobacco Advance Directives: No Advance Directives Information Provided: No service: No Current occupational status: disabled Physical Exam Vital Signs: Vital Signs: Last Vital Signs Temp 97.4 F 05/27/23 19:36 Pulse 57 05/27/23 19:36 Resp 16 05/27/23 19:36 BP 157/61 H 05/27/23 19:36 Pulse Ox 96 05/27/23 19:36 O2 Del Method Room Air 05/27/23 19:36 BMI result Body Mass Index 50.4 VITAL SIGNS: Reviewed. GENERAL: Well developed, well nourished, in no acute distress. HEAD: Normocephalic/atraumatic EYES: PERRLA, EOMI EARS: Ext canals without abnormality NOSE: Nares patent bilateral OROPHARYNX: no oral lesions noted, posterior pharynx clear NECK: Supple, no adenopathy LUNGS: Normal breath sounds. No adventitious sounds or accessory muscle use. SpO2<96> CARDIOVASCULAR: Regular rate and rhythm without noted murmurs ABDOMEN: Soft, non-tender, non-distended with bowel sounds. MUSCULOSKELETAL: No tenderness, deformities, or effusions noted on gross inspection. EXTREMITIES: No cyanosis, clubbing or edema. LEFT ANKLE: Swelling noted at the lateral malleolus, some bruising noted at the distal anterior tibia, no point tenderness at the proximal fibular head and no pain across the left foot otherwise neurovascular is intact with good capillary refill. SKIN: Inspection of the skin reveals no rashes NEUROLOGIC: Alert and oriented x 4. Strength and sensation to light touch were grossly intact x 4. Course Course Course Narrative: Fell out of bed on Wednesday with immediate left foot pain. Reports that she has was seen at [facility] with an XR completed showing a 'hairline fracture' of the left ankle. Here for splinting. RME: NAD, A&Ox4, decreased PROM and AROM of left foot/ankle, LS CTA, HR RRR RME completed by [facility] Medications Administered Discontinued Medications Generic Name Dose Route Start Last Admin Trade Name Freq PRN Reason Stop Dose Admin Acetaminophen 975 mg 05/27/23 19:33 05/27/23 19:49 Acetaminophen 325 Mg Tablet PO 05/27/23 19:34 975 mg ONCE ONE Administration Ibuprofen 400 mg 05/27/23 19:33 05/27/23 19:49 Ibuprofen 400 Mg Tablet PO 05/27/23 19:34 400 mg ONCE ONE Administration Medical Decision Making Medical Decision Making MDM Narrative: 58-year-old female who is referred here by her primary care doctor after official radiology read. I discussed the official read as listed below with Dr. Mcintosh, patient was placed in a walking boot and given a referral to Orthopedics and instructed follow-up with primary care doctor. 184: Dr Mcintosh called and read the XR LEFT ANKLE acute mild displaced oblique of distal fibular Differential Diagnosis Differential Diagnoses: The differential diagnosis associated with the presentation includes Please see the discussion above Admission/Observation Consideration of admission/observation: Escalation of care including admission/observation considered Please see the discussion above Radiology Impression Discussion of test interpretation with radiology: I have reviewed the radiologist's reading. Radiologist Impression: Please see the discussion above Discharge Plan Discharge Clinical Impression: Fracture, fibula closed, shaft Patient Disposition: Home, Self-Care Instructions: Leg Fracture (ED), Walking Boot (ED) Additional Instructions: 1. Recomiende Tylenol/ibuprofeno de venta eva seg?n sea necesario para controlar el dolor. 2. Utilice la bota para caminar en todo momento; la referencia para ortopedia se le proporciona a continuaci?n y debe llamar al consultorio a primera hora de la ma?malia para programar torrey lenin para la evaluaci?n. 3. Tambi?n marlen un seguimiento con de m?dico de atenci?n primaria en los pr?ximos 1 o 2 d?as. Regrese a la jonas de emergencias si los s?ntomas empeoran. 1. Recommend [id number] Tylenol/ibuprofen as needed for pain control. 2. Use the walking boot at all times, the referral for Orthopedics is provided to you below and you should call the office 1st thing in the morning to set up an appointment for evaluation. 3. Please follow-up with your primary care doctor in the next 1-2 days as well. Return to the ER for any worsening symptoms. Prescriptions: No Action metformin 500 mg tablet 1 tab PO BID aspirin 81 mg tablet,delayed release (DR/EC) 1 tab PO DAILY pantoprazole 20 mg tablet,delayed release (DR/EC) 1 tab PO DAILY lidocaine 5 % adhesive patch,medicated 1 patch topical DAILY Rx Instructions: both feet and knees levothyroxine 200 mcg tablet 400 mcg PO DAILY Flovent HFA 220 mcg/actuation HFA aerosol inhaler 1 puff inhalation BID oxycodone-acetaminophen 7.5-325 mg tablet 1 tab PO QID PRN (Reason: Pain, Moderate) zolpidem 10 mg tablet 1 tab PO BEDTIME PRN (Reason: Sleep) paroxetine HCl 40 mg tablet 1 tab PO DAILY cholecalciferol (vitamin D3) 25 mcg (1,000 unit) capsule 1 cap PO DAILY multivitamin with folic acid [Daily-Loida (with folic acid)] 400 mcg tablet 1 tab PO DAILY amlodipine 2.5 mg Tablet 2.5 mg PO DAILY Qty: 14 0RF Protocol: Hold for SBP< HOLD for SBP < : 90 diclofenac sodium 1 % gel 2 g topical BID hydrocortisone 1 % cream with perineal applicator topical DAILY ondansetron HCl 4 mg tablet 4 mg PO TID PRN (Reason: nausea) fluticasone propionate 50 mcg/actuation spray,suspension 2 spray intranasal DAILY epinephrine 0.3 mg/0.3 mL auto-injector IM losartan 25 mg tablet 25 mg PO DAILY naloxone [Narcan] 4 mg/actuation spray,non-aerosol 0 spray intranasal clindamycin HCl 300 mg capsule 600 mg PO Q8H gabapentin 300 mg capsule 300 mg PO DAILY PRN (Reason: pain) tizanidine 2 mg tablet 2 mg PO Q12H PRN (Reason: pain) acetic acid 2 % solution otic (ear) left celecoxib 100 mg capsule 100 mg PO DAILY metformin 1,000 mg tablet 1,000 mg PO albuterol sulfate [ProAir HFA] 90 mcg/actuation HFA aerosol inhaler 2 puff inhalation Q4-6H PRN amitriptyline 10 mg tablet 10 mg PO BEDTIME bupropion HCl 150 mg tablet extended release 24 hr 150 mg PO QAM docusate sodium 100 mg capsule 100 mg PO BID Referrals: Braeden Shultz MD [Physician] - Name,MD Osei [Primary Care Provider] - Interventions: ED Discharge Assessment Last Done: 05/27/23 20:12 Discharge Date/Time: 05/27/23 20:12 Print Language: Tajik
[2023-05-27 17:21] VITALS: BP 175/69; PULSE 58; RESP 16; TEMP 36.8; O2SAT 98
--- NOTE | 2023-05-27 18:19 | MHC.EDTECH ---
pt requested blanket for cold legs and blanket given
[2023-05-27 18:25] VITALS: BP 177/91; PULSE 55; RESP 16; TEMP 36.6; O2SAT 97
[2023-05-27 19:36] VITALS: BP 157/61; PULSE 57; RESP 16; TEMP 36.3; O2SAT 96
[2023-05-27] MEDS: Ibuprofen 400 MG TABLET PO (19:49)
[2023-05-27] MEDS: Acetaminophen 325 MG TABLET 975 MG PO (19:49)
--- NOTE | 2023-05-27 19:53 | PC.NURSE ---
Medicated per jul, This RN only reviewed discharge instruction with pt. pt verbalized understanding no sign of distress.
== END 2023-05-27 20:12 | disposition home or self-care (01) ==
PROVIDERS: Emergency Provider Student in an Organized Health Care Education/Training Program; PCP Internal Medicine Geriatric Medicine
DX: S82.62XA Displaced fracture of lateral malleolus of left fibula, initial encounter for closed fracture (principal); W06.XXXA Fall from bed, initial encounter; E11.9 Type 2 diabetes mellitus without complications; Z79.84 Long term (current) use of oral hypoglycemic drugs; Z79.82 Long term (current) use of aspirin; Z79.899 Other long term (current) drug therapy; E66.9 Obesity, unspecified; Z68.43 Body mass index [BMI] 50.0-59.9, adult; Y93.84 Activity, sleeping; Y92.032 Bedroom in apartment as the place of occurrence of the external cause; Y99.9 Unspecified external cause status
CPT/HCPCS: 99283; 99284

== ENCOUNTER 2023-06-11 10:20 | Outpatient (REF) | payer MEDICAID, SELFPAY ==
--- NOTE | ~2023-06-11 | XR_ITS ---
EXAMINATION: XR ANKLE, LEFT CLINICAL INFORMATION: Ankle pain COMPARISON: 05/27/2023 TECHNIQUE: AP, lateral, and mortise views of the left ankle. FINDINGS: Redemonstration of obliquely oriented fracture of the distal fibula. Age-indeterminate fracture of the medial malleolus again noted. Ankle mortise is preserved. Calcaneal enthesopathy is noted. Dorsal midfoot degenerative changes and osteophytosis is again noted. XR/XR ankle LT min 3V IMPRESSION: Redemonstration of obliquely oriented fracture of the distal fibula. Age-indeterminate fracture of the medial malleolus again noted.
== END 2023-06-11 10:21 | disposition home or self-care (01) ==
LOC: HO.HOSX 10:20
PROVIDERS: Visit Provider Physician Assistant
DX: S82.62XA Displaced fracture of lateral malleolus of left fibula, initial encounter for closed fracture (principal); M25.572 Pain in left ankle and joints of left foot; W06.XXXA Fall from bed, initial encounter; Y93.9 Activity, unspecified; Y92.9 Unspecified place or not applicable; Y99.9 Unspecified external cause status
CPT/HCPCS: 73610; 99212

== ENCOUNTER 2023-06-11 15:20 | Outpatient (AMB) | payer MEDICAID, SELFPAY ==
--- NOTE | 2023-06-11 15:32 | A.OFFVIS_ITS ---
Intake Vital Signs 06/11/23 15:33 Height 5 ft 7 in Weight 322 lb BMI 50.4 Intake Visit Reasons: Newprob- Fracture, fibula closed, shaft, left Intake Note: Luisa is a 58 year old year old female who presents today for a evaluation of her left ankle fx, which happened about 2-3 weeks. Patient reports she feel off her bed when she was trying to get her phone that was on the table she roll off her bed. She states that her pain is tolerable at the moment. Denies numbness and tingling. Allergies cortisone [CORTISONE] Allergy (Mild, Verified 06/11/23 15:34) RASH Penicillins [PENICILLINS] Allergy (Mild, Verified 06/11/23 15:34) RASH bee pollen [BEE STINGS] Allergy (Unknown, Verified 06/11/23 15:34) ANAPHYLAXIS penicillin V Allergy (Unknown, Verified 06/11/23 15:34) Itching Cortisone Allergy (Unknown, Uncoded 05/28/23 16:24) Itching HPI Newprob- Fracture, fibula closed, shaft, left HPI Details 58-year-old female who presents in the [facility] today for an evaluation of left lower extremity pain. The patient presented to the ED on 05/27/2023 status post falling off the bed on 05/22/2023. She was placed in a tall walking boot and referred to Orthopedics. While in the office today she reports the injury occurred 2-3 weeks ago when she went to get the phone, but her legs were numb, and she fell. She reports she fell off the bed. She states the pain is tolerable. She denies numbness and tingling. Patient has a significant medical history of diabetes mellitus. She is accompanied in the office today by family members. [facility] Medical History Carpal tunnel syndrome of left wrist Asthma Morbid obesity Diabetes Colon cancer Thyroid cancer Social History Household Members: Family Housing: House Patient Tobacco Use Status: Never used Tobacco service: No Current occupational status: disabled Review of Systems Const All systems reviewed & are unremarkable except as noted in HPI and below Physical Exam Vital Signs: BMI result Body Mass Index 50.4 Const General: cooperative and no acute distress Orientation/consciousness: patient oriented x3 Resp Effort & Inspection: normal respiratory effort and able to speak in complete sentences Cardio Peripheral pulses: Peripheral pulses 2+ throughout Skin General skin exam: no rashes or lesions noted Neuro General: patient oriented x3 Extrem Other: Left ankle: Moderate edema located over the lateral malleolus accompanied by tenderness to palpation. No tenderness to palpation over the medial malleolus. Resolving ecchymosis at the base of the toes. Slightly able to dorsiflex and plantarflex but is limited due pain. Sensation intact. Pedal pulse intact. Office Procedures Fracture Care Fracture Billing Code: Fracture Billing Code Assessment & Plan Assessment & Plan (1) Fracture of left ankle, lateral malleolus: Code(s): S82.62XA - Displaced fracture of lateral malleolus of left fibula, initial encounter for closed fracture Qualifiers: Encounter type: initial encounter Fracture type: closed Plan Ms. Ezequiel Levy is a 58-year-old female who presents in the office today for an evaluation of left lower extremity pain. The patient presented to the ED on 05/27/2023 status post falling off the bed on 05/22/2023. She was placed in a tall walking boot and referred to Orthopedics. While in the office today she reports the injury occurred 2-3 weeks ago when she went to get the phone, but her legs were numb, and she fell. She reports she fell off the bed. She states the pain is tolerable. She denies numbness and tingling. Patient has a significant medical history of diabetes mellitus. She is accompanied in the office today by family members. I discussed the case with Dr. Shultz who was available but did not see the patient, and a collaborative treatment place was created. I have encouraged the patient to remain in the boot at all time for 4 weeks. She may weight bear as tolerated. Follow up will be in 4 weeks with repeat x-rays, or sooner if needed. X-rays of the left ankle which were obtained while in the office today and were reviewed by me, Deysi Bautista PA-C, revealed a lateral malleolus fracture with routine healing. X-rays of the left ankle, obtained on 05/27/2023, revealed: Acute mildly displaced oblique fracture of the distal fibular diaphysis/metadiaphysis at the level of the ankle mortise. Punctate ossific focus at the inferior margin of the medial malleolus may reflect sequela of trauma, chronicity indeterminate. Ankle mortise is symmetric. Plantar calcaneal heel spur. Enthesopathy at the Achilles tendon insertion site. Spurring the dorsal midfoot. Soft tissue swelling along the lateral malleolus. Orders: Orders XR ankle LT min 3V Today M25.579 - Pain in unspecified ankle and joints of unspe cified foot Patient Instructions: Scribed for Deysi Bautista PA-C by Dalila Jenkins certified medical coding specialist, on 06/11/2023 at 3:28 pm, EST. Coding Level of Care Code Est Pt Level 4 (21255) Diagnoses Fracture of left ankle, lateral malleolus S82.62XA Encounter type: initial encounter Fracture type: closed CPT Codes Fracture Care - Fracture Billing Code: Fracture Billing Code ([id number])
[2023-06-11 15:33] VITALS: BMI 50.4
== END 2023-06-11 16:00 ==
PROVIDERS: PCP Internal Medicine Geriatric Medicine; Visit Provider Physician Assistant
DX: S82.62XA Displaced fracture of lateral malleolus of left fibula, initial encounter for closed fracture (principal)
CPT/HCPCS: 99214

== ENCOUNTER 2023-07-06 | Outpatient (REF) | payer MEDICAID, SELFPAY | END 2023-07-06 00:01 | disposition home or self-care (01) | LOC: HO.HHCLNP | PROVIDERS: Visit Provider Emergency Medicine | DX: R30.0 Dysuria (principal) | CPT/HCPCS: 87086 ==

== ENCOUNTER 2023-07-12 13:42 | Outpatient (AMB) | payer MEDICAID, SELFPAY ==
--- NOTE | 2023-07-12 13:51 | A.OFFVIS_ITS ---
Intake Intake Visit Reasons: ov- LT ankle fx, DOI 06/01/23 Intake Note: Luisa is a 58 year old year old female who presents today for a follow up of her left lateral malleolus fx, which happened about 2 months ago. Patient reports her ankle is not causing her a lot of pain. She is having complaints of right knee pain, she states that her knee feels like it is going to the side. Allergies cortisone [CORTISONE] Allergy (Mild, Verified 07/12/23 13:56) RASH Penicillins [PENICILLINS] Allergy (Mild, Verified 07/12/23 13:56) RASH bee pollen [BEE STINGS] Allergy (Unknown, Verified 07/12/23 13:56) ANAPHYLAXIS penicillin V Allergy (Unknown, Verified 07/12/23 13:56) Itching Cortisone Allergy (Unknown, Uncoded 05/28/23 16:24) Itching HPI ov- LT ankle fx, DOI 06/01/23 HPI Details 58-year-old female, who is Khmer speak ing, presents in the office today for a follow up of a left ankle lateral malleolus fracture, which occurred on 05/27/2023 status post falling off the bed on 05/22/2023. I last saw the patient in the office on 06/11/2023 where the patient was instructed to remain in the boot for 4 weeks and to weight bear as tolerated. While in the office today the patient reports her ankle is not causing her a lot of pain. She states she has been having right knee pain. She claims it feels like the right knee is going to the side. Patient has a significant medical history of diabetes mellitus. [facility] Medical History Carpal tunnel syndrome of left wrist Asthma Morbid obesity Diabetes Colon cancer Thyroid cancer Social History Household Members: Family Housing: House Patient Tobacco Use Status: Never used Tobacco service: No Current occupational status: disabled Review of Systems Const All systems reviewed & are unremarkable except as noted in HPI and below Physical Exam Const General: cooperative, healthy appearing and no acute distress Orientation/consciousness: patient oriented x3 Resp Effort & Inspection: normal respiratory effort and able to speak in complete sentences Cardio Rate: regular rate Peripheral pulses: Peripheral pulses 2+ throughout GI Palpation (GI): Soft to palpation Skin General skin exam: no rashes or lesions noted Lesions: no lesions Rashes: no rashes Neuro General: patient oriented x3 Extrem Other: Left ankle: Moderate edema located over the lateral malleolus. No tenderness to palpation. Mild tenderness to palpation over the medial malleolus. Able to dorsiflex and plantarflex , pronate and supinate to end range without difficulties. Sensation intact. Pedal pulse intact. Assessment & Plan Assessment & Plan (1) Fracture of left ankle, lateral malleolus: Code(s): S82.62XA - Displaced fracture of lateral malleolus of left fibula, initial encounter for closed fracture Qualifiers: Encounter type: subsequent encounter Fracture alignment: nondisplaced Fracture healing: with routine healing Fracture type: closed Qualified Cod e(s): S82.65XD - Nondisplaced fracture of lateral malleolus of left fibula, subsequent encounter for closed fracture with routine healing Plan Ms. Ezequiel Levy is a 58-year-old female, who is Khmer speaking, presents in the office today for a follow up of a left ankle lateral malleolus fracture, which occurred on 05/27/2023 status post falling off the bed on 05/22/2023. I last saw the patient in the office on 06/11/2023 where the patient was instructed to remain in the boot for 4 weeks and to weight bear as tolerated. While in the office today the patient reports her ankle is not causing her a lot of pain. She states she has been having right knee pain. She claims it feels like the right knee is going to the side. Patient has a significant medical history of diabetes mellitus. The patient has discontinued the use of the boot on her own. She does continue to have persistent lateral malleolar edema. I recommend for the patient to work with physical therapy to work on strengthening of the ankle. Follow up will be PRN, or sooner if needed. X-rays of the left ankle which were obtained while in the office today and were reviewed by me, Deysi Bautista PA-C, revealed routine healing of a left distal fibular fracture. Orders: Orders XR ankle LT min 3V 07/12/23 M25.579 - Pain in unspecified ankle and joints of unspecified foot PT Evaluation and Treatment 07/12/23 S82.62XA - Displaced fracture of lateral malleolus of left fibula, initial encounter for closed fracture Patient Instructions: Scribed by Dalila Jenkins, medical technologist, for Deysi Bautista PA-C on 07/12/2023 at 1:42 pm, EST. Coding Level of Care Code Global (65250) Diagnoses Closed nondisplaced fracture of lateral malleolus of left fibula with routine healing, subsequent encounter S82.65XD Encounter type: subsequent encounter Fracture alignment: nondisplaced Fracture healing: with routine healing Fracture type: closed
== END 2023-07-12 14:06 | disposition home or self-care (01) ==
PROVIDERS: PCP Internal Medicine Geriatric Medicine; Visit Provider Physician Assistant
DX: S82.65XD Nondisplaced fracture of lateral malleolus of left fibula, subsequent encounter for closed fracture with routine healing (principal)
CPT/HCPCS: 99213

== ENCOUNTER 2023-07-12 14:33 | Outpatient (REF) | payer MEDICAID, SELFPAY ==
--- NOTE | ~2023-07-12 | XR_ITS ---
EXAMINATION: XR ANKLE, LEFT CLINICAL INFORMATION: Pain in unspecified ankle and joints of unspecified foot. COMPARISON: 06/11/2023 left ankle. TECHNIQUE: AP, lateral, and mortise views of the left ankle. FINDINGS: Redemonstration of oblique fracture of the distal fibula with some interval callus formation. Redemonstration of age-indeterminate fracture of the medial malleolus. Diffuse soft tissue swelling and joint effusion. Dorsal and plantar calcaneal enthesopathies. Degenerative changes at the dorsal aspect of the midfoot with hypertrophic change. XR/XR ankle LT min 3V IMPRESSION: Redemonstration of oblique fracture of the distal fibula with some interval callus formation. Redemonstration of age-indeterminate fracture of the medial malleolus.
== END 2023-07-12 14:34 | disposition home or self-care (01) ==
LOC: HO.HOSX 14:33
PROVIDERS: Visit Provider Physician Assistant
DX: M25.572 Pain in left ankle and joints of left foot (principal); S82.62XA Displaced fracture of lateral malleolus of left fibula, initial encounter for closed fracture; W06.XXXA Fall from bed, initial encounter; Y93.9 Activity, unspecified; Y92.003 Bedroom of unspecified non-institutional (private) residence as the place of occurrence of the external cause; Y99.9 Unspecified external cause status
CPT/HCPCS: 73610; 99212

== ENCOUNTER 2023-07-16 08:51 | Outpatient (REF) | payer MEDICAID, SELFPAY ==
--- NOTE | ~2023-07-16 | XR_ITS ---
EXAMINATION: XR STANDING BILATERAL KNEES XR LEFT KNEE CLINICAL INFORMATION: Pain in unspecified knee. COMPARISON: 05/27/2023 radiographs left knee. 02/10/2022 radiographs bilateral knees. TECHNIQUE: 2 views of the left knee and 2 AP standing views of bilateral knees. FINDINGS: AP Standing: Redemonstration of tricompartmental advanced degenerative changes, most severe in the medial compartment. Left Knee: Redemonstration of advanced tricompartmental degenerative changes most severe in the medial and patellofemoral compartments with joint space loss and hypertrophic change. Moderate joint effusion. Previously described nonspecific thickening along the posterior medial cortex of the proximal tibial diaphysis was better characterized on the prior exam, possibly due to differences in positioning. XR/XR knee LT 2V IMPRESSION: Advanced degenerative changes in the bilateral knees.
--- NOTE | ~2023-07-16 | XR_ITS ---
EXAMINATION: XR STANDING BILATERAL KNEES XR LEFT KNEE CLINICAL INFORMATION: Pain in unspecified knee. COMPARISON: 05/27/2023 radiographs left knee. 02/10/2022 radiographs bilateral knees. TECHNIQUE: 2 views of the left knee and 2 AP standing views of bilateral knees. FINDINGS: AP Standing: Redemonstration of tricompartmental advanced degenerative changes, most severe in the medial compartment. Left Knee: Redemonstration of advanced tricompartmental degenerative changes most severe in the medial and patellofemoral compartments with joint space loss and hypertrophic change. Moderate joint effusion. Previously described nonspecific thickening along the posterior medial cortex of the proximal tibial diaphysis was better characterized on the prior exam, possibly due to differences in positioning. XR/XR knee standing BI IMPRESSION: Advanced degenerative changes in the bilateral knees.
== END 2023-07-16 08:52 | disposition home or self-care (01) ==
LOC: HO.HOSX 08:51
PROVIDERS: Visit Provider Physician Assistant
DX: M17.12 Unilateral primary osteoarthritis, left knee (principal); M25.561 Pain in right knee
CPT/HCPCS: 73560; 73565; 99212

== ENCOUNTER 2023-07-16 11:19 | Outpatient (AMB) | payer MEDICAID, SELFPAY ==
--- NOTE | 2023-07-16 11:29 | MHC.OFFVIS ---
Intake Intake Visit Reasons: New Prob - right knee pain Intake Note: Luisa is a 58 year old female who presents today for a evaluation of her left knee pain. patient reports since her injury she has been getting increase of pain in her left knee pain. She states that her pain is on the medial aspect of the left knee. Currently is still having pain, she states that her pain is worse when she is going down the stairs. Allergies cortisone [CORTISONE] Allergy (Mild, Verified 07/16/23 11:35) RASH Penicillins [PENICILLINS] Allergy (Mild, Verified 07/16/23 11:35) RASH bee pollen [BEE STINGS] Allergy (Unknown, Verified 07/16/23 11:35) ANAPHYLAXIS penicillin V Allergy (Unknown, Verified 07/16/23 11:35) Itching Cortisone Allergy (Unknown, Uncoded 05/28/23 16:24) Itching HPI New Prob - right knee pain HPI Details 58-year-old female, who is Algerian speaking, presents in the office today for an evaluation of left knee pain. The patient reports since her injury she has had increased pain in the left knee. She states the pain is on the medial aspect of the left knee. She claims her pain is worse when going down stairs. [facility] Medical History Carpal tunnel syndrome of left wrist Asthma Morbid obesity Diabetes Colon cancer Thyroid cancer Social History Household Members: Family Housing: House Patient Tobacco Use Status: Never used Tobacco service: No Current occupational status: disabled Review of Systems Const All systems reviewed & are unremarkable except as noted in HPI and below Physical Exam Const General: cooperative, healthy appearing and no acute distress Resp Effort & Inspection: normal respiratory effort and able to speak in complete sentences Cardio Rate: regular rate Peripheral pulses: Peripheral pulses 2+ throughout GI Palpation (GI): Soft to palpation Skin Lesions: no lesions Rashes: no rashes Extrem Other: Left knee: Normal to inspection. No ecchymosis, erythema, or joint effusion. No tenderness to palpation to the medial or lateral joint lines. Full knee extension and flexion. Crepitus felt with ROM. Assessment & Plan Assessment & Plan (1) Osteoarthritis of left knee: Code(s): M17.12 - Unilateral primary osteoarthritis, left knee Plan Ms. Ezequiel Levy is a 58-year-old female, who is Algerian speaking, presents in the office today for an evaluation of left knee pain. The patient reports since her injury she has had increased pain in the left knee. She states the pain is on the medial aspect of the left knee. She claims her pain is worse when going down stairs. The patient had an adverse reaction to cortisone injections which caused facial flushing and a rash. She has a history of Gel injections with Euflexxa in the right knee in 2021, which worked well for her. We will petition the insurance company for coverage of Euflexxa for the left knee. A prescription for Ibuprofen 800 mg PO TID PRN was sent to the pharmacy. Follow up will be once insurance approval has been obtained, or sooner if needed. X-rays of the left knee which were obtained while in the office today and were reviewed by me, Deysi Bautista PA-C, revealed severe osteoarthritis. Orders: Orders XR knee standing BI 07/16/23 M25.569 - Pain in unspecified knee Medications: New ibuprofen 800 mg PO TID 30 days PRN 90 tabs 0RF pain Patient Instructions: Scribed by Dalila Jenkins registered medical transcriptionist, for Deysi Bautista PA-C on 07/16/2023 at 11:21 am, EST. Coding Level of Care Code Est Pt Level 3 (65885) Diagnoses Osteoarthritis of left knee M17.12
== END 2023-07-16 11:56 | disposition home or self-care (01) ==
PROVIDERS: PCP Internal Medicine Geriatric Medicine; Visit Provider Physician Assistant
DX: M17.12 Unilateral primary osteoarthritis, left knee (principal)
CPT/HCPCS: 99213

== ENCOUNTER 2023-08-17 12:55 | Outpatient (AMB) | payer MEDICAID, SELFPAY ==
--- NOTE | 2023-08-17 13:09 | MHC.OFFVIS ---
Intake Intake Visit Reasons: left knee euflexxa gel injection #1 Intake Note: Luisa is a 58 year old female who presents today for her first euflexxa gel injection for her left knee. Allergies cortisone [CORTISONE] Allergy (Mild, Verified 08/17/23 13:10) RASH Penicillins [PENICILLINS] Allergy (Mild, Verified 08/17/23 13:10) RASH bee pollen [BEE STINGS] Allergy (Unknown, Verified 08/17/23 13:10) ANAPHYLAXIS penicillin V Allergy (Unknown, Verified 08/17/23 13:10) Itching Cortisone Allergy (Unknown, Uncoded 05/28/23 16:24) Itching HPI left knee euflexxa gel injection #1 HPI Details 58-year-old female, who is Greenlandic speaking, presents in the office today for a follow up of left knee pain and to obtain her 1st Euflexxa injection in a series of 3. [facility] Medical History Carpal tunnel syndrome of left wrist Asthma Morbid obesity Diabetes Colon cancer Thyroid cancer Social History Household Members: Family Housing: House Patient Tobacco Use Status: Never used Tobacco service: No Current occupational status: disabled Review of Systems Const All systems reviewed & are unremarkable except as noted in HPI and below Physical Exam Const General: cooperative, healthy appearing and no acute distress Resp Effort & Inspection: normal respiratory effort and able to speak in complete sentences Cardio Rate: regular rate Peripheral pulses: Peripheral pulses 2+ throughout GI Palpation (GI): Soft to palpation Skin Lesions: no lesions Rashes: no rashes Extrem Other: Left knee: Normal to inspection. No ecchymosis, erythema, or joint effusion. No tenderness to palpation to the medial or lateral joint lines. Full knee extension and flexion. Crepitus felt with ROM. Office Procedures Joint Injection/Drain Joint Injection/Drain Primary Site: left knee Prep: site was prepped using aseptic technique, ethochloride spray was applied and injection warnings given Injected: in the joint and other (Euflexxa #1) Coding 08624 - Large joint Procedure code (CPT) selection complete Assessment & Plan Assessment & Plan (1) Osteoarthritis of left knee: Code(s): M17.12 - Unilateral primary osteoarthritis, left knee Qualifiers: Osteoarthritis type: unspecified Qualified Code(s): M17.12 - Unilateral primary osteoarthritis, left knee Plan Ms. Ezequiel Levy is a 58-year-old female, who is Greenlandic speaking, presents in the office today for a follow up of left knee pain and to obtain her 1st Euflexxa injection in a series of 3. The patient was injection with her 1st Euflexxa injection in the left knee. The patient was explained the risk, benefits, and alternatives to receiving this injection. After receiving consent for the injection, the patient had the procedure done while in office today. The patient tolerated the procedure well with no complications. Follow up will be in 1 week for her 2nd Euflexxa injection, or sooner if needed. Patient Instructions: Scribed by Dalila Jenkins regional medical director, for Deysi Bautista PA-C on 08/17/2023 at 12:57 pm, EST. Coding Level of Care Code Procedure Only Diagnoses Osteoarthritis of left knee, unspecified osteoarthritis type M17.12 Osteoarthritis type: unspecified CPT Codes Coding - 62588 Large joint: 87866 - Large joint ([id number])
== END 2023-08-17 13:19 | disposition home or self-care (01) ==
PROVIDERS: PCP Internal Medicine Geriatric Medicine; Visit Provider Physician Assistant
DX: M17.12 Unilateral primary osteoarthritis, left knee (principal)
CPT/HCPCS: 20610

== ENCOUNTER → 2023-08-17 12:55 | Outpatient (BNVA) | payer MEDICAID, SELFPAY | PROVIDERS: PCP Internal Medicine Geriatric Medicine; Visit Provider Physician Assistant | DX: M17.12 Unilateral primary osteoarthritis, left knee (principal) | CPT/HCPCS: 20610; J7323 ==

== ENCOUNTER 2023-08-24 13:17 | Outpatient (AMB) | payer MEDICAID, SELFPAY ==
--- NOTE | 2023-08-24 13:20 | MHC.OFFVIS ---
Intake Intake Visit Reasons: left knee euflexxa gel injection #2 Intake Note: Luisa is a 58 year old female who presents today for her second euflexxa gel injection for her left knee. Patient reports her last injection gave her mild relief. Allergies cortisone [CORTISONE] Allergy (Mild, Verified 08/24/23 13:20) RASH Penicillins [PENICILLINS] Allergy (Mild, Verified 08/24/23 13:20) RASH bee pollen [BEE STINGS] Allergy (Unknown, Verified 08/24/23 13:20) ANAPHYLAXIS penicillin V Allergy (Unknown, Verified 08/24/23 13:20) Itching Cortisone Allergy (Unknown, Uncoded 05/28/23 16:24) Itching HPI left knee euflexxa gel injection #2 HPI Details 58-year-old female, who is Turkish speaking, presents in the office today for a follow up of left knee pain and to obtain her 2nd Euflexxa injection in a series of 3. She reports a mil relief in her pain since the last injection. [facility] Medical History Carpal tunnel syndrome of left wrist Asthma Morbid obesity Diabetes Colon cancer Thyroid cancer Social History Household Members: Family Housing: House Patient Tobacco Use Status: Never used Tobacco service: No Current occupational status: disabled Physical Exam Const General: cooperative, healthy appearing and no acute distress Resp Effort & Inspection: normal respiratory effort and able to speak in complete sentences Cardio Rate: regular rate Peripheral pulses: Peripheral pulses 2+ throughout GI Palpation (GI): Soft to palpation Skin Lesions: no lesions Rashes: no rashes Extrem Other: Left knee: Normal to inspection. No ecchymosis, erythema, or joint effusion. No tenderness to palpation to the medial or lateral joint lines. Full knee extension and flexion. Crepitus felt with ROM. Office Procedures Joint Injection/Drain Joint Injection/Drain Primary Site: left knee Prep: site was prepped using aseptic technique, ethochloride spray was applied and injection warnings given Injected: in the joint (Euflexxa #2) Approach Used: anterolateral Procedure: The patient tolerated the procedure well, but had some pain with the injection and there was some relief with the local anesthesia Coding 33009 - Large joint Procedure code (CPT) selection complete Assessment & Plan Assessment & Plan (1) Osteoarthritis of left knee: Code(s): M17.12 - Unilateral primary osteoarthritis, left knee Qualifiers: Osteoarthritis type: unspecified Qualified Code(s): M17.12 - Unilateral primary osteoarthritis, left knee Plan Ms. Ezequiel Levy is a 58-year-old female, who is Turkish speaking, presents in the office today for a follow up of left knee pain and to obtain her 2nd Euflexxa injection in a series of 3. The patient was injected with her 2nd Euflexxa injection in the left knee. The patient was explained the risk, benefits, and alternatives to receiving this injection. After receiving consent for the injection, the patient had the procedure done while in office today. The patient tolerated the procedure well with no complications. Follow up will be in 1 week for her 3rd Euflexxa injection, or sooner if needed. Coding Level of Care Code Procedure Only Diagnoses Osteoarthritis of left knee, unspecified osteoarthritis type M17.12 Osteoarthritis type: unspecified CPT Codes Coding - 68215 Large joint: 24291 - Large joint ([id number])
== END 2023-08-24 13:34 | disposition home or self-care (01) ==
PROVIDERS: PCP Internal Medicine Geriatric Medicine; Visit Provider Physician Assistant
DX: M17.12 Unilateral primary osteoarthritis, left knee (principal)
CPT/HCPCS: 20610

== ENCOUNTER → 2023-08-24 13:17 | Outpatient (BNVA) | payer MEDICAID, SELFPAY | PROVIDERS: PCP Internal Medicine Geriatric Medicine; Visit Provider Physician Assistant | DX: M17.12 Unilateral primary osteoarthritis, left knee (principal) | CPT/HCPCS: 20610; J7323 ==

== ENCOUNTER 2023-08-31 13:03 | Outpatient (AMB) | payer MEDICAID, SELFPAY ==
--- NOTE | 2023-08-31 13:14 | MHC.OFFVIS ---
Intake Intake Visit Reasons: left knee euflexxa gel injection #3 Intake Note: Luisa is a 58 year old female who presents today for her third euflexxa gel injection for her left knee. Patient reports her last gel injection gave her pain. She expresses that why she was feeling a lot of pain after her 2nd injection. Allergies cortisone [CORTISONE] Allergy (Mild, Verified 08/31/23 13:21) RASH Penicillins [PENICILLINS] Allergy (Mild, Verified 08/31/23 13:21) RASH bee pollen [BEE STINGS] Allergy (Unknown, Verified 08/31/23 13:21) ANAPHYLAXIS penicillin V Allergy (Unknown, Verified 08/31/23 13:21) Itching Cortisone Allergy (Unknown, Uncoded 05/28/23 16:24) Itching HPI left knee euflexxa gel injection #3 HPI Details 58-year-old female, who is Maltese speaking, presents in the office today for a follow up of left knee pain and to obtain her 3rd Euflexxa injection in a series of 3. While in the office today the patient reports her last Gel injection gave her increased pain. [facility] Medical History Carpal tunnel syndrome of left wrist Asthma Morbid obesity Diabetes Colon cancer Thyroid cancer Social History Household Members: Family Housing: House Patient Tobacco Use Status: Never used Tobacco service: No Current occupational status: disabled Review of Systems Const All systems reviewed & are unremarkable except as noted in HPI and below Physical Exam Const General: cooperative, healthy appearing and no acute distress Resp Effort & Inspection: normal respiratory effort and able to speak in complete sentences Cardio Rate: regular rate Peripheral pulses: Peripheral pulses 2+ throughout GI Palpation (GI): Soft to palpation Skin Lesions: no lesions Rashes: no rashes Extrem Other: Left knee: Normal to inspection. No ecchymosis, erythema, or joint effusion. No tenderness to palpation to the medial or lateral joint lines. Full knee extension and flexion. Crepitus felt with ROM. Office Procedures Joint Injection/Drain Joint Injection/Drain Primary Site: right knee Prep: site was prepped using aseptic technique, ethochloride spray was applied and injection warnings given Injected: in the joint (Euflexxa #3) Approach Used: anterolateral Procedure: The patient tolerated the procedure well, but had some pain with the injection and there was some relief with the local anesthesia Coding 43634 - Large joint Procedure code (CPT) selection complete Assessment & Plan Assessment & Plan (1) Osteoarthritis of left knee: Code(s): M17.12 - Unilateral primary osteoarthritis, left knee Qualifiers: Osteoarthritis type: unspecified Qualified Code(s): M17.12 - Unilateral primary osteoarthritis, left knee Plan Ms. Ezequiel Levy is a 58-year-old female, who is Maltese speaking, presents in the office today for a follow up of left knee pain and to obtain her 3rd Euflexxa injection in a series of 3. While in the office today the patient reports her last Gel injection gave her increased pain. The patient was injection with her 3rd Euflexxa injection in the left knee. The patient was explained the risk, benefits, and alternatives to receiving this injection. After receiving consent for the injection, the patient had the procedure done while in the office today. The patient tolerated the procedure well with no complications. Follow up will be PRN, or sooner if needed. Patient Instructions: Scribed by Dalila Jenkins durable medical equipment technician, for Deysi Bautista PA-C on 08/31/2023 at 1:06 pm, EST. Coding Level of Care Code Procedure Only Diagnoses Osteoarthritis of left knee, unspecified osteoarthritis type M17.12 Osteoarthritis type: unspecified CPT Codes Coding - 36454 Large joint: 70721 - Large joint ([id number])
== END 2023-08-31 13:35 | disposition home or self-care (01) ==
PROVIDERS: PCP Internal Medicine Geriatric Medicine; Visit Provider Physician Assistant
DX: M17.12 Unilateral primary osteoarthritis, left knee (principal)
CPT/HCPCS: 20610

== ENCOUNTER → 2023-08-31 13:03 | Outpatient (BNVA) | payer MEDICAID, SELFPAY | PROVIDERS: PCP Internal Medicine Geriatric Medicine; Visit Provider Physician Assistant | DX: M17.12 Unilateral primary osteoarthritis, left knee (principal) | CPT/HCPCS: 20610; J7323 ==

== ENCOUNTER 2023-10-20 09:56 | Outpatient (AMB) | payer MEDICAID, SELFPAY ==
--- NOTE | 2023-10-20 10:02 | A.OFFVIS_ITS ---
Intake Visit Reasons: OV- Lt CTS wants sx Intake Note: Luisa 58 yr old female presents today for a follow up visit for her left CTS. Last seen with Dr Ramon on 02/2023 who ordered EMG. Patient would like to discuss surgery. She is not taking blood thinners, is diabetic but is controlled with medication. She does have a pain medication contract with her pcp Allergies cortisone [CORTISONE] Allergy (Mild, Verified 08/31/23 13:21) RASH Penicillins [PENICILLINS] Allergy (Mild, Verified 08/31/23 13:21) RASH bee pollen [BEE STINGS] Allergy (Unknown, Verified 08/31/23 13:21) ANAPHYLAXIS penicillin V Allergy (Unknown, Verified 08/31/23 13:21) Itching Cortisone Allergy (Unknown, Uncoded 05/28/23 16:24) Itching HPI HPI OV- Lt CTS wants sx: Details: Luisa is a 58 year old right hand dominant Diabetic Bahraini speaking woman who presents for a NCS review of her bilateral hand numbness. She speaks some Ugandan, but her was with her to help translate. Her primary complaint today is of left hand numbness She complains of numbness in all digits of her left hand. Symptoms constant in all digits, but slightly better in her small finger She also complains of her left thumb locking painfully and she says this hurts to make a fist. She says she has a Hx of Thyroid & colon cancer, which has been in remission since ~2018. She says she has a port in her chest which was used for chemotherapy treatment. This is scheduled to be removed sometime in December. She is a Diabetic, which she says is well-controlled. She follows with Pain management and is on a pain contract. She takes Percocets. [facility] Medical History Carpal tunnel syndrome of left wrist Asthma Morbid obesity Diabetes Colon cancer Thyroid cancer Social History Household Members: Family Housing: House Patient Tobacco Use Status: Never used Tobacco service: No Current occupational status: disabled Review of Systems Const All systems reviewed & are unremarkable except as noted in HPI and below Physical Exam Const General: cooperative, healthy appearing and no acute distress Orientation/consciousness: patient oriented x3 HEENT Head: Yes normocephalic and Yes atraumatic Eyes EOM: EOMs intact bilaterally Resp Effort & Inspection: normal respiratory effort and able to speak in complete sentences Cardio Jugular venous distension: no JVD Skin General skin exam: turgor normal Rashes: no rashes Neuro General: patient oriented x3 Extrem Other: Evaluation of Left Upper Extremity: The patient is alert, oriented, and in no acute distress Neuro: Dense numbness to the tips of all digits. No thenar or intrinsic wasting Good APB muscle belly firing and good finger cross Vascular: Cap refill brisk ROM: She can make a fist and extend all her digits Visible and palpable locking & catching of the left thumb Tender over the thumb a1 dipesh Skin: No lacerations or abrasions. General: No Ecchymosis. No Erythema or evidence of infection. There is a port in the anterior right chest, which was used for Chemotherapy treatment. Nerve Conduction Study: Right side only IMPRESSION: 1. This is an abnormal study. 2. There is electrodiagnostic evidence for right moderate-severe median neuropathy at the wrist, consistent with carpal tunnel syndrome. 3. There is electrodiagnostic evidence for right ulnar neuropathy at the elbow. 4. There is no electrodiagnostic evidence for ulnar neuropathy, brachial plexopathy, or cervical radiculopathy. Kathy Avilez MD, SARAH 03/04/23 Left side only IMPRESSION: 1. Moderately severe left median neuropathy across carpal tunnel. 2. Moderately severe left ulnar neuropathy across cubital tunnel. Pratik Vazquez MD 03/05/2022 Psych Appearance: grossly normal Affect: normal affect Attitude: cooperative Assessment & Plan Assessment & Plan (1) Carpal tunnel syndrome of left wrist: Code(s): G56.02 - Carpal tunnel syndrome, left upper limb Category: Medical (2) Cubital tunnel syndrome on left: Code(s): G56.22 - Lesion of ulnar nerve, left upper limb Category: Medical (3) Trigger thumb, left thumb: Code(s): M65.312 - Trigger thumb, left thumb Category: Medical (4) Diabetes: Code(s): E11.9 - Type 2 diabetes mellitus without complications Category: Medical (5) Carpal tunnel syndrome of right wrist: Code(s): G56.01 - Carpal tunnel syndrome, right upper limb Category: Medical (6) Cubital tunnel syndrome on right: Code(s): G56.21 - Lesion of ulnar nerve, right upper limb Category: Medical Plan Assessment & Plan: 1. Left carpal tunnel syndrome, moderate-severe This is her primary complaint today With dense numbness 2. Left cubital tunnel syndrome, moderate-severe With dense numbness 3. Left trigger thumb I educated her and her about these conditions I discussed operative and non-operative treatment options The patient would like to proceed with surgery The risks and benefits of operative treatment were discussed with the patient and the patient wishes to proceed with surgery. These risks include, but are not limited to risk of damage to blood vessels, nerves, tendons, infection, recurrence, incomplete relief of preoperative symptoms, persistent pain, possib le need for further surgery and the risks associated with regional blocks and anesthesia. The plan is to take the patient to the operating room sometime in the next few weeks for the following procedures: 1. Left cubital tunnel release vs transposition, under general 2. Left carpal tunnel release, under general 3. Left trigger thumb release, under general All of the preoperative paperwork including the consent was reviewed today. All the patient's questions were answered. The patient understands that they will be contacted by our high school learning support teacher soon to schedule this procedure She denies blood thinners, heart, lung, kidney issues She has asthma and has a hx of both colon & thyroid cancer, which has been in remission since ~2018. There is a port in the anterior right chest, which was used for Chemotherapy treatment. This is scheduled to be removed sometime in 12/2023 She is a Diabetic, which she says is well-controlled. She says her most recent HgA1c was ~6.0% but she is scheduled to have this checked next week by her PCP, She will need an updated HgA1c that is <8.1% in order to proceed with surgery, and they expressed understanding 4. Right carpal tunnel syndrome, moderate-severe Not discussed today 5. Right cubital tunnel syndrome, Not discussed today She will follow up to discuss this at a later appointment Scribed for Wanda Bills MD by Charli Gant medical logistics specialist, on 10/20/23 at 10:40 AM, EST. Coding Level of Care Code New Pt Level 4 (53989) Diagnoses Carpal tunnel syndrome of left wrist G56.02 Cubital tunnel syndrome on left G56.22 Trigger thumb, left thumb M65.312 Diabetes E11.9 Carpal tunnel syndrome of right wrist G56.01 Cubital tunnel syndrome on right G56.21
== END 2023-10-20 10:46 | disposition home or self-care (01) ==
LOC: HO.HOS 09:56
PROVIDERS: PCP Internal Medicine Geriatric Medicine; Visit Provider Orthopaedic Surgery
DX: G56.03 Carpal tunnel syndrome, bilateral upper limbs (principal); G56.23 Lesion of ulnar nerve, bilateral upper limbs; M65.312 Trigger thumb, left thumb; E11.9 Type 2 diabetes mellitus without complications
CPT/HCPCS: 99204

== ENCOUNTER → 2023-10-20 09:56 | Outpatient (BNVA) | payer MEDICAID, SELFPAY | PROVIDERS: PCP Internal Medicine Geriatric Medicine; Visit Provider Orthopaedic Surgery | DX: G56.03 Carpal tunnel syndrome, bilateral upper limbs (principal); G56.23 Lesion of ulnar nerve, bilateral upper limbs; M65.312 Trigger thumb, left thumb; E11.9 Type 2 diabetes mellitus without complications | CPT/HCPCS: 99202 ==

== ENCOUNTER 2023-12-15 11:20 | Outpatient (AMB) | payer MEDICAID, SELFPAY ==
--- NOTE | 2023-12-15 11:56 | A.OFFVIS_ITS ---
Vital Signs 12/15/23 12:11 Height 5 ft 7 in Intake Visit Reasons: Preop LT CTR, cubital, trigger thumb 12/23/23 AR Intake Note: Luisa is a 58 yo right hand dominant female who presents today preoperatively for left CTR, cubital, and trigger thumb scheduled for 12/23/[address] Bills. Patient states her most recent A1C is 5.6%, checked last month. Consent already in chart. Accompanied by: Friend Allergies cortisone [CORTISONE] Allergy (Mild, Verified 12/15/23 11:56) RASH Penicillins [PENICILLINS] Allergy (Mild, Verified 12/15/23 11:56) RASH bee pollen [BEE STINGS] Allergy (Unknown, Verified 12/15/23 11:56) ANAPHYLAXIS penicillin V Allergy (Unknown, Verified 12/15/23 11:56) Itching Cortisone Allergy (Unknown, Uncoded 12/15/23 11:56) Itching HPI HPI Preop LT CTR, cubital, trigger thumb 12/23/23 AR: Details: Luisa is a 58 year old right hand dominant Diabetic Bahraini speaking woman who returns to discuss her left carpal tunnel syndrome. She speaks some Luxembourger, but her was with her to help translate. She complains of numbness in all digits of her left hand. Symptoms constant in all digits, but slightly better in her small finger. She also complains of her left thumb locking painfully and she says this hurts to make a fist. She says she has a Hx of Thyroid & colon cancer, which has been in remission since ~2019. She says she has a port in her chest which was used for chemotherapy treatment. This is scheduled to be removed sometime in December. She is a Diabetic, which she says is well-controlled. She follows with Pain management and is on a pain contract. She takes Percocets. [facility] Medical History Carpal tunnel syndrome of left wrist Asthma Morbid obesity Diabetes Colon cancer Thyroid cancer Social History Household Members: Family Housing: House Patient Tobacco Use Status: Never used Tobacco service: No Current occupational status: disabled Physical Exam Extrem Other: Evaluation of Left Upper Extremity: The patient is alert, oriented, and in no acute distress Neuro: Dense numbness to the tips of all digits. No thenar or intrinsic wasting Good APB muscle belly firing and good finger cross Vascular: Cap refill brisk ROM: She can make a fist and extend all her digits Visible and palpable locking & catching of the left thumb Tender over the thumb a1 dipesh There is a port in the anterior right chest, which was used for Chemotherapy treatment. Nerve Conduction Study: Right side only IMPRESSION: 1. This is an abnormal study. 2. There is electrodiagnostic evidence for right moderate-severe median neuropathy at the wrist, consistent with carpal tunnel syndrome. 3. There is electrodiagnostic evidence for right ulnar neuropathy at the elbow. 4. There is no electrodiagnostic evidence for ulnar neuropathy, brachial plexopathy, or cervical radiculopathy. Kathy Avilez MD, SARAH 03/04/23 Left side only IMPRESSION: 1. Moderately severe left median neuropathy across carpal tunnel. 2. Moderately severe left ulnar neuropathy across cubital tunnel. Pratik Vazquez MD 03/05/2022 Assessment & Plan Assessment & Plan (1) Carpal tunnel syndrome of left wrist: Code(s): G56.02 - Carpal tunnel syndrome, left upper limb Category: Medical (2) Cubital tunnel syndrome on left: Code(s): G56.22 - Lesion of ulnar nerve, left upper limb Category: Medical (3) Trigger thumb, left thumb: Code(s): M65.312 - Trigger thumb, left thumb Category: Medical (4) Diabetes: Code(s): E11.9 - Type 2 diabetes mellitus without complications Category: Medical (5) Carpal tunnel syndrome of right wrist: Code(s): G56.01 - Carpal tunnel syndrome, right upper limb Category: Medical (6) Cubital tunnel syndrome on right: Code(s): G56.21 - Lesion of ulnar nerve, right upper limb Category: Medical Plan Assessment & Plan: 1. Left carpal tunnel syndrome, moderate-severe This is her primary complaint today With dense numbness 2. Left cubital tunnel syndrome, moderate-severe With dense numbness 3. Left trigger thumb I educated her and her about these conditions I discussed operative and non-operative treatment options The patient would like to proceed with surgery The risks and benefits of operative treatment were discussed with the patient and the patient wishes to proceed with surgery. These risks include, but are not limited to risk of damage to blood vessels, nerves, tendons, infection, recurrence, incomplete relief of preoperative symptoms, persistent pain, possible need for further surgery and the risks associated with regional blocks and anesthesia. The plan is to take the patient to the operating room sometime on 12/23/23 for the following procedures: 1. Left cubital tunnel release vs transposition, under general 2. Left carpal tunnel release, under general 3. Left trigger thumb release, under general All of the preoperative paperwork including the consent was reviewed today. All the patient's questions were answered. She denies blood thinners, heart, lung, kidney issues She has asthma and has a hx of both colon & thyroid cancer, which has been in remission since ~2018. There is a port in the anterior right chest, which was used for Chemotherapy treatment. This is scheduled to be removed sometime in 12/2023 She is a Diabetic, which she says is well-controlled. She says her most recent HgA1c was ~5.6% in Mid-October. 4. Right carpal tunnel syndrome, moderate-severe Not discussed today 5. Right cubital tunnel syndrome, Not discussed today She will follow up to discuss this at a later appointment Scribed for Wanda Bills MD by Charli Gant, esthetician and manager medical spa, on 12/15/23 at 12:10 PM, EST. Coding Level of Care Code Est Pt Level 4 (68542) Diagnoses Carpal tunnel syndrome of left wrist G56.02 Cubital tunnel syndrome on left G56.22 Trigger thumb, left thumb M65.312 Diabetes E11.9 Carpal tunnel syndrome of right wrist G56.01 Cubital tunnel syndrome on right G56.21
== END 2023-12-15 12:40 | disposition home or self-care (01) ==
PROVIDERS: PCP Internal Medicine Geriatric Medicine; Visit Provider Orthopaedic Surgery
DX: G56.03 Carpal tunnel syndrome, bilateral upper limbs (principal); G56.23 Lesion of ulnar nerve, bilateral upper limbs; M65.312 Trigger thumb, left thumb; E11.9 Type 2 diabetes mellitus without complications
CPT/HCPCS: 99024

== ENCOUNTER → 2023-12-15 11:20 | Outpatient (BNVA) | payer MEDICAID, SELFPAY | PROVIDERS: PCP Internal Medicine Geriatric Medicine; Visit Provider Orthopaedic Surgery | DX: G56.03 Carpal tunnel syndrome, bilateral upper limbs (principal); G56.23 Lesion of ulnar nerve, bilateral upper limbs; E11.9 Type 2 diabetes mellitus without complications; M65.312 Trigger thumb, left thumb | CPT/HCPCS: 99212 ==

== ENCOUNTER 2023-12-23 09:10 | Day surgery (SDC) | payer MEDICAID, SELFPAY ==
--- NOTE | 2023-12-21 14:54 | P.CONAN_ITS ---
Documented by User: Elyssa Huynh NP 12/21/23 14:59 HPI - Anesthesia Eval Consult details Narrative: 58yo F for Left Cubital Tunnel Release, Carpal Tunnel Release, Thumb Trigger Release PMFSH Active Problems Active Problems: All Active Problems Cubital tunnel syndrome on right (Acute) Carpal tunnel syndrome of right wrist (Acute) Trigger thumb, left thumb (Acute) Cubital tunnel syndrome on left (Acute) Osteoarthritis of left knee (Acute) Fracture of left ankle, lateral malleolus (Acute) Carpal tunnel syndrome of left wrist (Acute) Osteoarthritis of right knee (Acute) Adrenal nodule (Acute) HTN (hypertension) (Acute) Incisional hernia (Acute) Asthma (Acute) Morbid obesity (Acute) Diabetes (Acute) Past Medical History Medical History HTN (hypertension) Carpal tunnel syndrome of left wrist Asthma Morbid obesity Diabetes Colon cancer Thyroid cancer Social History Social History Household Members: Family Housing: House Patient Tobacco Use Status: Never used Tobacco Advance Directives: No Advance Directives Information Provided: Yes service: No Current occupational status: disabled Meds Allergies Allergy/AdvReac Type Severity Reaction Status Date / Time cortisone [CORTISONE] Allergy Mild RASH Verified 12/15/23 11:56 Penicillins [PENICILLINS] Allergy Mild RASH Verified 12/15/23 11:56 bee pollen [BEE STINGS] Allergy Unknown ANAPHYLAXIS Verified 12/15/23 11:56 penicillin V Allergy Unknown Itching Verified 12/15/23 11:56 Cortisone Allergy Unknown Itching Uncoded 12/15/23 11:56 Home Medications ?Medication ?Instructions ?Recorded ?Confirmed ?Last Taken ?Type cholecalciferol (vitamin D3) 25 1 cap PO DAILY 02/26/21 02/17/23 Unknown History mcg (1,000 unit) capsule fluticasone propionate 220 1 puff inhalation BID 02/26/21 02/17/23 Unknown History mcg/actuation HFA aerosol inhaler (Flovent HFA) levothyroxine 200 mcg tablet 400 mcg PO DAILY 02/26/21 02/17/23 Unknown History lidocaine 5 % topical patch 1 patch topical DAILY 02/26/21 02/17/23 Unknown History metformin 500 mg tablet 1 tab PO BID 02/26/21 02/17/23 Unknown History multivitamin with folic acid 400 1 tab PO DAILY 02/26/21 02/17/23 Unknown Histo ry mcg tablet (Daily-Loida (with folic acid)) oxycodone-acetaminophen 7.5 mg-325 1 tab PO QID PRN Pain, Moderate 02/26/21 02/17/23 Unknown History mg tablet pantoprazole 20 mg tablet,delayed 1 tab PO DAILY 02/26/21 02/17/23 Unknown History release paroxetine HCl 40 mg tablet 1 tab PO DAILY 02/26/21 02/17/23 Unknown History zolpidem 10 mg tablet 1 tab PO BEDTIME PRN Sleep 02/26/21 02/17/23 Unknown History acetic acid 2 % ear solution ml otic (ear) left 02/10/22 02/17/23 Unknown History albuterol sulfate 90 mcg/actuation 2 puff inhalation Q4-6H PRN 02/10/22 02/17/23 Unknown History aerosol inhaler (ProAir HFA) amitriptyline 10 mg tablet 10 mg PO BEDTIME 02/10/22 02/17/23 Unknown History bupropion HCl 150 mg 24 hr tablet, 150 mg PO QAM 02/10/22 02/17/23 Unknown History extended release celecoxib 100 mg capsule 100 mg PO DAILY 02/10/22 02/17/23 Unknown History clindamycin HCl 300 mg capsule 600 mg PO Q8H 02/10/22 02/17/23 Unknown History diclofenac sodium 1 % topical gel 2 g topical BID 02/10/22 02/17/23 Unknown History docusate sodium 100 mg capsule 100 mg PO BID 02/10/22 02/17/23 Unknown History epinephrine 0.3 mg/0.3 mL IM 02/10/22 02/17/23 Unknown History injection, auto-injector fluticasone propionate 50 2 spray intranasal DAILY 02/10/22 02/17/23 Unknown History mcg/actuation nasal spray,suspension gabapentin 300 mg capsule 300 mg PO DAILY PRN pain 02/10/22 02/17/23 Unknown History hydrocortisone 1 % topical cream topical DAILY 02/10/22 02/17/23 Unknown History with perineal applicator losartan 25 mg tablet 25 mg PO DAILY 02/10/22 02/17/23 Unknown History metformin 1,000 mg tablet 1,000 mg PO 02/10/22 02/17/23 Unknown History naloxone 4 mg/actuation nasal 0 spray intranasal 02/10/22 02/17/23 Unknown History spray (Narcan) ondansetron HCl 4 mg tablet 4 mg PO TID PRN nausea 02/10/22 02/17/23 Unknown History tizanidine 2 mg tablet 2 mg PO Q12H PRN pain 02/10/22 02/17/23 Unknown History Exam Height,Weight and Vital Signs: Height 5 ft 7 in Assessment and Plan Assessment Anesthesia Assessment: Chart Reviewed Documented by User: Patricia Schilling MD 12/23/23 10:19 [facility] Past Medical History Medical History HTN (hypertension) Carpal tunnel syndrome of left wrist Asthma Morbid obesity Diabetes Colon cancer Thyroid cancer Family History Family history of problems with anesthesia: No Surgical History History of Problems with Anesthesia: No Social History Social History Household Members: Family Housing: House Patient Tobacco Use Status: Never used Tobacco Advance Directives: No Advance Directives Information Provided: Yes service: No Current occupational status: disabled Meds Allergies Allergy/AdvReac Type Severity Reaction Status Date / Time cortisone [CORTISONE] Allergy Mild RASH Verified 12/15/23 11:56 Penicillins [PENICILLINS] Allergy Mild RASH Verified 12/15/23 11:56 bee pollen [BEE STINGS] Allergy Unknown ANAPHYLAXIS Verified 12/15/23 11:56 penicillin V Allergy Unknown Itching Verified 12/15/23 11:56 Cortisone Allergy Unknown Itching Uncoded 12/15/23 11:56 Home Medications ?Medication ?Instructions ?Recorded ?Confirmed ?Last Taken ?Type cholecalciferol (vitamin D3) 25 1 cap PO DAILY 02/26/21 02/17/23 Unknown History mcg (1,000 unit) capsule fluticasone propionate 220 1 puff inhalation BID 02/26/21 02/17/23 Unknown History mcg/actuation HFA aerosol inhaler (Flovent HFA) levothyroxine 200 mcg tablet 400 mcg PO DAILY 02/26/21 02/17/23 Unknown History lidocaine 5 % topical patch 1 patch topical DAILY 02/26/21 02/17/23 Unknown History metformin 500 mg tablet 1 tab PO BID 02/26/21 02/17/23 Unknown History multivitamin with folic acid 400 1 tab PO DAILY 02/26/21 02/17/23 Unknown History mcg tablet (Daily-Loida (with folic acid)) oxycodone-acetaminophen 7.5 mg-325 1 tab PO QID PRN Pain, Moderate 02/26/21 02/17/23 Unknown History mg tablet pantoprazole 20 mg tablet,delayed 1 tab PO DAILY 02/26/21 02/17/23 Unknown History release paroxetine HCl 40 mg tablet 1 tab PO DAILY 02/26/21 02/17/23 Unknown History zolpidem 10 mg tablet 1 tab PO BEDTIME PRN Sleep 02/26/21 02/17/23 Unknown History acetic acid 2 % ear solution ml otic (ear) left 02/10/22 02/17/23 Unknown History albuterol sulfate 90 mcg/actuation 2 puff inhalation Q4-6H PRN 02/10/22 02/17/23 Unknown History aerosol inhaler (ProAir HFA) amitriptyline 10 mg tablet 10 mg PO BEDTIME 02/10/22 02/17/23 Unknown History bupropion HCl 150 mg 24 hr tablet, 150 mg PO QAM 02/10/22 02/17/23 Unknown History extended release celecoxib 100 mg capsule 100 mg PO DAILY 02/10/22 02/17/23 Unknown History clindamycin HCl 300 mg capsule 600 mg PO Q8H 02/10/22 02/17/23 Unknown History diclofenac sodium 1 % topical gel 2 g topical BID 02/10/22 02/17/23 Unknown History docusate sodium 100 mg capsule 100 mg PO BID 02/10/22 02/17/23 Unknown History epinephrine 0.3 mg/0.3 mL IM 02/10/22 02/17/23 Unknown History injection, auto-injector fluticasone propionate 50 2 spray intranasal DAILY 02/10/22 02/17/23 Unknown History mcg/actuation nasal spray,suspension gabapentin 300 mg capsule 300 mg PO DAILY PRN pain 02/10/22 02/17/23 Unknown History hydrocortisone 1 % topical cream topical DAILY 02/10/22 02/17/23 Unknown History with perineal applicator losartan 25 mg tablet 25 mg PO DAILY 02/10/22 02/17/23 Unknown History metformin 1,000 mg tablet 1,000 mg PO 02/10/22 02/17/23 Unknown History naloxone 4 mg/actuation nasal 0 spray intranasal 02/10/22 02/17/23 Unknown History spray (Narcan) ondansetron HCl 4 mg tablet 4 mg PO TID PRN nausea 02/10/22 02/17/23 Unknown History tizanidine 2 mg tablet 2 mg PO Q12H PRN pain 02/10/22 02/17/23 Unknown History Exam Airway Mallampati Class: II TM Dist: <=3cm Neck ROM: Limited Heart: rrr Lungs: cta Assessment and Plan Assessment Anesthesia Assessment: Anesthesia Plan Discussed Final Anesthetic Review Family History of Problems with Anesthesia: No History of Problems with Anesthesia: No NPO: Yes ASA Class: III Final Preanesthetic Review: No Changes in Pt Med Stat, Meds/Allgs Chart Reviewed, Consent Obtained/Reviewed and Anes Risks/Benef Reviewed Patient Risk: Intermediate Procedure Risk: Low Anesthetic Plan Anesthetic Plan: GA Disposition: Standard PACU
--- NOTE | 2023-12-23 09:53 | ECG_ITS ---
Test Reason : asthma, htn Blood Pressure : / mmHG Vent. Rate : 054 BPM Atrial Rate : 054 BPM P-R Int : 156 ms QRS Dur : 140 ms QT Int : 500 ms P-R-T Axes : 011 061 014 degrees QTc Int : 474 ms Sinus bradycardia Right bundle branch block Abnormal ECG When compared to the previous EKG of No significant changes seen Referred By: Elyssa Huynh Electronically Signed By:TAWNY AGUILAR MD
[2023-12-23 10:14] LABS: Hematocrit 32.3 % (37.0-47.0); Mean Corpuscular Hemoglobin 22.4 pg (27.0-33.0); Mean Corpuscular Volume 72.4 fL (80.0-98.0); Platelet Count 276 X10*3/uL (160-400); Red Blood Count 4.46 X10*6/uL (4.20-5.50); Red Cell Distribution Width 16.3 % (11.0-16.0); White Blood Count 9.4 X10*3/uL (4.8-10.8)
--- NOTE | 2023-12-23 10:23 | MHC.SHP ---
Pre-Procedural Eval Section A - 24 Hr Update-Section A only Date of Service: 12/23/23 The patient is an INPATIENT: No Changes since office visit: No Cold of Flu in the past 2 weeks, No New Medical Problems, No Changes in Medication and No Patient answered all questions Section B - Complete if H&P > 30 days Chief Complaint: Lesion of ulnar nerve, left,carpal tunnel,trigger Allergies: Allergies Allergy/AdvReac Type Severity Reaction Status Date / Time cortisone [CORTISONE] Allergy Mild RASH Verified 12/23/23 10:21 Penicillins [PENICILLINS] Allergy Mild RASH Verified 12/23/23 10:21 bee pollen [BEE STINGS] Allergy Unknown ANAPHYLAXIS Verified 12/23/23 10:21 penicillin V Allergy Unknown Itching Verified 12/23/23 10:21 Cortisone Allergy Unknown Itching Uncoded 12/23/23 10:21 Plan I have reviewed the history and physical and performed a pertinent physical examination on my patient. No changes have occurred unless specified. Time Spent With Patient Time: Total time managing care of this patient today ____ minutes.
[2023-12-23] MEDS: Lactated Ringers 1,000 ML 100 ML IVCONT (10:27)
--- NOTE | 2023-12-23 10:32 | P.OP_ITS ---
Operative Note Operative Note Date of Service: 12/23/23 Narrative: Operative Note Narrative: Preop diagnosis: 1. Left Cubital tunnel syndrome 2. Left carpal tunnel syndrome 3. Left trigger thumb Postop diagnosis: Same Procedure: 1. Left Cubital Tunnel Release 2. Left carpal tunnel release 3. Left trigger finger release Surgeon: Wanda Bills MD Senior Financial Analyst: Bebeto GUZMAN Anesthesia: General Anesthesia Findings: Thickening and fibrosis about the ulnar nerve at the cubital tunnel Implants: none Tourniquet time: 80 minutes EBL: 5.0 ml Specimen: none Drains: None Complications: None Disposition: Brought to the recovery room in stable condition Plan: Follow-up in 10-14 days for wound check, and suture removal Indications: The patient is 58 years old with left cubital tunnel syndrome, left carpal tunnel syndrome, and a left trigger thumb . The risks and benefits of operative treatment, including but not limited to risk of damage to blood vessels, nerves, tendons, infection, recurrence, persistent pain or numbness, incomplete resolution of preoperative symptoms, or need for further surgery were discussed with the patient and they wished to proceed with surgery. Procedure: Once consent was obtained patient was brought back to the operating suite and placed in the operating table in a supine position. Perioperative antibiotics and anesthesia was administered by the anesthesia team. The limb was prepped and draped in a standard surgical fashion, and a sterile tourniquet applied to the proximal aspect of the left upper extremity. The limb was elevated exsanguinated with Esmarch bandage and the tourniquet inflated to 250 mm of mercury for a total tourniquet time of 80 minutes. A 6 cm gently curved but longitudinally oriented incision was made centered over the cubital tunnel of the left upper extremity. Incision was made through the skin to the subcutaneous tissues using a # 15 Blade. I then dissected down to the level of the medial epicondyle and the cubital tunnel using tenotomy scissors. Care was taken to protect the medial antebrachial cutaneous nerve. The ulnar nerve was identified just posterior to the medial intermuscular septum. The ulnar nerve was released in a proximal to distal direction using tenotomy in iris scissors while directly visualizing and protecting the ulnar nerve. Thickening and fibrosis was appreciated about the ulnar nerve as it passed through the cubital tunnel. The ulnar nerve was assessed as I passed the elbow through full flexion and extension and was found to remain stable within its groove. Once assured that we had a good block, a 2.0 cm longitudinal incision was made centered over the left carpal tunnel. The incision was made through the skin to the subcutaneous tissues using a #15 blade. Dissection was made down to the level of the transverse carpal ligament with care being taken to protect the palmar cutaneous nerve. Once the transverse carpal ligament was clearly visualized, a longitudinal incision was made in the transverse carpal ligament 1st using a #15 blade, then using tenotomy scissors under direct visualization. Care was taken to look for and protect the motor branch of the median nerve when seen in this area. Once satisfied with our carpal tunnel release the wound was irrigated with normal saline. Once assured that we had a good block, a 1.5 cm oblique incision was made centered over the A1 dipesh of the left thumb . The incision was made through the skin to the subcutaneous tissues using a #15 blade. Careful dissection was made down to the level of the A1 dipesh using tenotomy scissors, with care being taken to protect the nearby neurovascular structures. A longitudinal incision was made in the A1 dipesh 1st using a #15 blade, then using tenotomy scissors under direct visualization. The A1 dipesh was noted to be thickened. Following our A1 dipseh release, we no longer saw any locking or catching of the digit with flexion and extension. At this point the tourniquet was deflated and hemostasis obtained with a brief period of local pressure and bipolar electrocautery. The wounds were copiously irrigated with normal saline. The subcutaneous layer was closed with 4-0 Vicryl suture, and the skin edges were reapproximated with 5-0 nylon suture. The wounds were infiltrated with some 0.25% plain Marcaine for postop pain control and sterile dressings were applied. The patient appears to have tolerated the procedure well and with no complications. All digits were well vascularized at the conclusion of the case.
[2023-12-23 10:34] LABS: Anion Gap 11 (12-20); Blood Urea Nitrogen 10 mg/dL (9-16); Calcium 9.6 mg/dL (8.4-10.2); Carbon Dioxide 31 mmol/L (22-29); Chloride 104 mmol/L (96-108); Estimated Glomerular Filt Rate > 60; Glucose Fasting 129 mg/dL (60-99); Sodium 142 mmol/L (135-145)
[2023-12-23 13:00] VITALS: BP 170/79; PULSE 72; RESP 16; TEMP 36.4; O2SAT 100
[2023-12-23 13:05] VITALS: BP 157/75; PULSE 75; RESP 14; O2SAT 100
[2023-12-23 13:10] VITALS: BP 163/81; PULSE 75; RESP 17; O2SAT 100
[2023-12-23 13:15] VITALS: BP 163/77; PULSE 66; RESP 20; O2SAT 100
[2023-12-23 13:30] VITALS: BP 155/75; PULSE 69; RESP 18; O2SAT 97
[2023-12-23 13:45] VITALS: BP 170/73; PULSE 75; RESP 16; TEMP 36.4; O2SAT 96
== END 2023-12-23 14:29 | disposition home or self-care (01) ==
PROVIDERS: Nurse Practitioner; PCP Internal Medicine Geriatric Medicine; Visit Provider Orthopaedic Surgery
PROC: (CPT 64718; principal; 2023-12-23 10:50)
PROC: (CPT 64721; 2023-12-23 10:50)
PROC: (CPT 26055; 2023-12-23 10:50)
DX: G56.02 Carpal tunnel syndrome, left upper limb (principal); G56.22 Lesion of ulnar nerve, left upper limb; M65.312 Trigger thumb, left thumb; R20.0 Anesthesia of skin; E11.9 Type 2 diabetes mellitus without complications; J45.909 Unspecified asthma, uncomplicated; E66.01 Morbid (severe) obesity due to excess calories; Z85.038 Personal history of other malignant neoplasm of large intestine; Z85.850 Personal history of malignant neoplasm of thyroid; Z92.21 Personal history of antineoplastic chemotherapy; Z79.51 Long term (current) use of inhaled steroids; Z79.84 Long term (current) use of oral hypoglycemic drugs; Z79.899 Other long term (current) drug therapy; Z88.0 Allergy status to penicillin; Z88.8 Allergy status to other drugs, medicaments and biological substances
CPT/HCPCS: 64721; 64718; 26055; 36415; 80048; 85027; 93005; J0131; J0690; J1100; J2250; J2405; J2704; J3010

== ENCOUNTER → 2023-12-23 09:10 | Outpatient (BNV) | payer MEDICAID, SELFPAY | PROVIDERS: PCP Internal Medicine Geriatric Medicine; Visit Provider Orthopaedic Surgery | DX: G56.22 Lesion of ulnar nerve, left upper limb (principal); M65.312 Trigger thumb, left thumb; G56.02 Carpal tunnel syndrome, left upper limb | CPT/HCPCS: 26055; 64718; 64721 ==

== ENCOUNTER → 2023-12-23 09:53 | Outpatient (BNV) | payer MEDICAID, SELFPAY | PROVIDERS: PCP Internal Medicine Geriatric Medicine; Visit Provider Internal Medicine Cardiovascular Disease | DX: I10 Essential (primary) hypertension (principal); R00.1 Bradycardia, unspecified; R94.31 Abnormal electrocardiogram [ECG] [EKG] | CPT/HCPCS: 93010 ==

== ENCOUNTER 2024-01-04 12:41 | Outpatient (AMB) | payer MEDICAID, SELFPAY ==
--- NOTE | 2024-01-04 12:44 | A.OFFVIS_ITS ---
Intake Visit Reasons: PO LT CTR, cubital, trigger thumb 12/23/23 AR Intake Note: Luisa is a 58 yo female who presents today post-operatively s/p left cubital tunnel release and trigger thumb release done 12/23/[address] Bills. Patient denies numbness and tingling. Reports her left middle finger is locking on. Stitches removed in office and steri strips applied. Allergies cortisone [CORTISONE] Allergy (Mild, Verified 01/04/24 13:17) RASH Penicillins [PENICILLINS] Allergy (Mild, Verified 01/04/24 13:17) RASH bee pollen [BEE STINGS] Allergy (Unknown, Verified 01/04/24 13:17) ANAPHYLAXIS penicillin V Allergy (Unknown, Verified 01/04/24 13:17) Itching Cortisone Allergy (Unknown, Uncoded 01/04/24 13:17) Itching HPI HPI PO LT CTR, cubital, trigger thumb 12/23/23 AR: Details: Luisa is a 58 year old right hand dominant Diabetic French speaking woman who returns S/p left carpal tunnel release, cubital tunnel release, and trigger thumb release, DOS: 12/23/23. She speaks some Ethiopian, but her was with her to help translate. She says she is doing well overall, with some pain. She says her sensation has improved somewhat, but she still has numbness in all digits. She denies any locking or catching. She would like to discuss her right carpal & cubital tunnel syndrome, and how long she has to wait until she can have surgery. She says she has a Hx of Thyroid & colon cancer, which has been in remission since ~2018. She says she has a port in her chest which was used for chemotherapy treatment. This is scheduled to be removed sometime in December. She is a Diabetic, which she says is well-controlled. She follows with Pain management and is on a pain contract. She takes Percocets. [facility] Medical History HTN (hypertension) Carpal tunnel syndrome of left wrist Asthma Morbid obesity Diabetes Colon cancer Thyroid cancer Social History Household Members: Family Housing: House Patient Tobacco Use Status: Never used Tobacco service: No Current occupational status: disabled Review of Systems Const All systems reviewed & are unremarkable except as noted in HPI and below Physical Exam Const General: no acute distress and alert Orientation/consciousness: patient oriented x3 Neuro General: patient oriented x3 Extrem Other: The patient was alert oriented and in no acute distress The incision is healing well with no erythema drainage or evidence of infection. Sutures removed and Steri-Strips applied She can make a fist and extend all her digits No locking or catching Sensation is improved to all digits of her left hand, but she says it has not yet normal Cap refill is brisk Nerve Conduction Study: Right side only IMPRESSION: 1. This is an abnormal study. 2. There is electrodiagnostic evidence for right moderate-severe median neuropathy at the wrist, consistent with carpal tunnel syndrome. 3. There is electrodiagnostic evidence for right ulnar neuropathy at the elbow. 4. There is no electrodiagnostic evidence for ulnar neuropathy, brachial plexopathy, or cervical radiculopathy. Kathy Avilez MD, SARAH 03/04/23 Left side only IMPRESSION: 1. Moderately severe left median neuropathy across carpal tunnel. 2. Moderately severe left ulnar neuropathy across cubital tunnel. Pratik Vazquez MD 03/05/2022 Psych Appearance: grossly normal Affect: normal affect Attitude: cooperative Assessment & Plan Assessment & Plan (1) Carpal tunnel syndrome of left wrist: Code(s): G56.02 - Carpal tunnel syndrome, left upper limb Category: Medical (2) Cubital tunnel syndrome on left: Code(s): G56.22 - Lesion of ulnar nerve, left upper limb Category: Medical (3) Trigger thumb, left thumb: Code(s): M65.312 - Trigger thumb, left thumb Category: Medical (4) Diabetes: Code(s): E11.9 - Type 2 diabetes mellitus without complications Category: Medical (5) Carpal tunnel syndrome of right wrist: Code(s): G56.01 - Carpal tunnel syndrome, right upper limb Category: Medical (6) Cubital tunnel syndrome on right: Code(s): G56.21 - Lesion of ulnar nerve, right upper limb Category: Medical Plan Assessment & Plan: 1. Left carpal tunnel syndrome, S/P release DOS: 12/23/23 Pre-operatively with dense numbness Now with improving but not yet normal sensation 2. Left cubital tunnel syndrome, S/P release DOS: 12/23/23 Pre-operatively with dense numbness Now with improving but not yet normal sensation 3. Left trigger thumb, S/P release DOS: 12/23/23 The patient appears to be doing well post-operatively I educated her about the post-operative course I discussed activity modifications, she is to lift nothing heavier than a cellphone for the next two weeks She will perform gentle ROM exercises at home She should avoid any underwater activities for the next 5 days She should gently massage about the incision site to reduce the risk of hypersensitivity 4. Right carpal tunnel syndrome, moderate-severe Not discussed today 5. Right cubital tunnel syndrome, Not discussed today She will follow up to discuss these issues in about 2 months Scribed for Wanda Bills MD by Charli Gant, diploma medical assistant, on 01/04/24 at 1:20 PM, EST. Scribe Plan - Not visible on output: Scribed for Wanda Bills MD by Charli Gant diploma medical assistant, on [ ] at [ ], EST. Coding Level of Care Code Global (53333) Diagnoses Carpal tunnel syndrome of left wrist G56.02 Cubital tunnel syndrome on left G56.22 Trigger thumb, left thumb M65.312 Diabetes E11.9 Carpal tunnel syndrome of right wrist G56.01 Cubital tunnel syndrome on right G56.21
== END 2024-01-04 13:47 | disposition home or self-care (01) ==
PROVIDERS: PCP Internal Medicine Geriatric Medicine; Visit Provider Orthopaedic Surgery
DX: G56.03 Carpal tunnel syndrome, bilateral upper limbs (principal); G56.23 Lesion of ulnar nerve, bilateral upper limbs; M65.312 Trigger thumb, left thumb; E11.9 Type 2 diabetes mellitus without complications
CPT/HCPCS: 99024

== ENCOUNTER → 2024-01-04 12:41 | Outpatient (BNVA) | payer MEDICAID, SELFPAY | PROVIDERS: PCP Internal Medicine Geriatric Medicine; Visit Provider Orthopaedic Surgery | DX: G56.01 Carpal tunnel syndrome, right upper limb (principal); G56.21 Lesion of ulnar nerve, right upper limb; M65.312 Trigger thumb, left thumb; E11.9 Type 2 diabetes mellitus without complications; Z98.890 Other specified postprocedural states | CPT/HCPCS: 99212 ==

== ENCOUNTER 2024-01-25 12:53 | Outpatient (AMB) | payer MEDICAID, SELFPAY ==
[2024-01-25 12:57] VITALS: BMI 50.4
--- NOTE | 2024-01-25 12:57 | A.OFFVIS_ITS ---
Vital Signs 01/25/24 12:57 Height 5 ft 7 in Weight 322 lb BMI 50.4 Intake Visit Reasons: OV-discuss right CTS and right cubital tunnel Intake Note: Luisa is a 58 year old right hand dominant female who presents today to discuss right carpal tunnel release and right cubital tunnel release. Patient reports -. Patient had left side done 12/23/[address] Bills. Abnormal EMG on 03/04/23. Allergies cortisone [CORTISONE] Allergy (Mild, Verified 01/25/24 12:57) RASH Penicillins [PENICILLINS] Allergy (Mild, Verified 01/25/24 12:57) RASH bee pollen [BEE STINGS] Allergy (Unknown, Verified 01/25/24 12:57) ANAPHYLAXIS penicillin V Allergy (Unknown, Verified 01/25/24 12:57) Itching Cortisone Allergy (Unknown, Uncoded 01/25/24 12:57) Itching HPI HPI OV-discuss right CTS and right cubital tunnel: Details: Luisa is a 58 year old right hand dominant Diabetic Niuean speaking woman who returns to discuss her right carpal tunnel syndrome. She is S/P left carpal tunnel release, cubital tunnel release, and trigger thumb release, DOS: 12/23/23. She speaks some Nigerian, but her was with her to help translate. She would like to discuss her right carpal & cubital tunnel syndrome, and how long she has to wait until she can have surgery. She has numbness in all digits of her right hand. Symptoms [ ]. Regarding her left hand, she says her sensation has improved somewhat, but she still has numbness in all digits. She says she has a Hx of Thyroid & colon cancer, which has been in remission since ~2018. She says she has a port in her chest which was used for chemotherapy treatment. This is scheduled to be removed sometime in December. She is a Diabetic, which she says is well-controlled. She follows with Pain management and is on a pain contract. She takes Percocets. [facility] Medical History HTN (hypertension) Carpal tunnel syndrome of left wrist Asthma Morbid obesity Diabetes Colon cancer Thyroid cancer Social History Household Members: Family Housing: House Patient Tobacco Use Status: Never used Tobacco service: No Current occupational status: disabled Review of Systems Const All systems reviewed & are unremarkable except as noted in HPI and below Physical Exam Vital Signs: BMI result Body Mass Index 50.4 Const General: no acute distress and alert Orientation/consciousness: patient oriented x3 Neuro General: patient oriented x3 Extrem Other: Evaluation of Right Upper Extremity: The patient is alert, oriented, and in no acute distress Neuro: Median, Ulnar, Radial nerves motor and sensory intact and sensation is normal to the tips of all digits Vascular: Cap refill brisk ROM: Nerve Conduction Study: Right side only IMPRESSION: 1. This is an abnormal study. 2. There is electrodiagnostic evidence for right moderate-severe median neuropathy at the wrist, consistent with carpal tunnel syndrome. 3. There is electrodiagnostic evidence for right ulnar neuropathy at the elbow. 4. There is no electrodiagnostic evidence for ulnar neuropathy, brachial plexopathy, or cervical radiculopathy. Kathy Avilez MD, SARAH 03/04/23 Left side only IMPRESSION: 1. Moderately severe left median neuropathy across carpal tunnel. 2. Moderately severe left ulnar neuropathy across cubital tunnel. Pratik Vazquez MD 03/05/2022 Psych Appearance: grossly normal Affect: normal affect Attitude: cooperative Assessment & Plan Assessment & Plan (1) Carpal tunnel syndrome of right wrist: Code(s): G56.01 - Carpal tunnel syndrome, right upper limb Category: Medical (2) Cubital tunnel syndrome on right: Code(s): G56.21 - Lesion of ulnar nerve, right upper limb Category: Medical (3) Carpal tunnel syndrome of left wrist: Code(s): G56.02 - Carpal tunnel syndrome, left upper limb Category: Medical (4) Cubital tunnel syndrome on left: Code(s): G56.22 - Lesion of ulnar nerve, left upper limb Category: Medical (5) Trigger thumb, left thumb: Code(s): M65.312 - Trigger thumb, left thumb Category: Medical (6) Diabetes: Code(s): E11.9 - Type 2 diabetes mellitus without complications Category: Medical Plan Assessment & Plan: 1. Right carpal tunnel syndrome, moderate-severe 2. Right cubital tunnel syndrome, 3. Left carpal tunnel syndrome, S/P release DOS: 12/23/23 Pre-operatively with dense numbness Now with improving but not yet normal sensation 4. Left cubital tunnel syndrome, S/P release DOS: 12/23/23 Pre-operatively with dense numbness Now with improving but not yet normal sensation 5. Left trigger thumb, S/P release DOS: 12/23/23 Scribed for Wanda Bills MD by Charli Gant, emergency medicine medical director, on 01/25/24 at 1:20 PM, EST. Scribe Plan - Not visible on output: Scribed for Wanda Bills MD by Charli Gant, emergency medicine medical director, on [ ] at [ ], EST. Coding Diagnoses Carpal tunnel syndrome of right wrist G56.01 Cubital tunnel syndrome on right G56.21 Carpal tunnel syndrome of left wrist G56.02 Cubital tunnel syndrome on left G56.22 Trigger thumb, left thumb M65.312 Diabetes E11.9
[2024-01-25 13:10] VITALS: BMI 50.4
--- NOTE | 2024-01-25 13:10 | A.OFFVIS_ITS ---
Vital Signs 01/25/24 12:57 01/25/24 13:10 Height 5 ft 7 in Weight 322 lb BMI 50.4 50.4 Intake Visit Reasons: OV-discuss right CTS and right cubital tunnel Intake Note: Luisa is a 58 year old right hand dominant female who presents today post- operatively s/p left CTR, cubital, trigger thumb 12/23/23 AR. Patient reports her left thumb has been twitching on its own, on and off. She also reports some soreness. Patient expressed she continues to do home exercises as recommended. Allergies cortisone [CORTISONE] Allergy (Mild, Verified 01/25/24 12:57) RASH Penicillins [PENICILLINS] Allergy (Mild, Verified 01/25/24 12:57) RASH bee pollen [BEE STINGS] Allergy (Unknown, Verified 01/25/24 12:57) ANAPHYLAXIS penicillin V Allergy (Unknown, Verified 01/25/24 12:57) Itching Cortisone Allergy (Unknown, Uncoded 01/25/24 12:57) Itching HPI HPI OV-discuss right CTS and right cubital tunnel: Details: Luisa is a 58 year old right hand dominant Diabetic Japanese speaking woman who returns S/P left carpal tunnel release, cubital tunnel release, and trigger thumb release, DOS: 12/23/23. She speaks some Sudanese, but her was with her to help translate. She reports some generalized soreness still following her surgery. She also complains that her left thumb is twitching on its own at times. She has been performing at-home exercises. She denies any locking or catching. She says her sensation has improved somewhat, particularly in the thumb and index fingers, but she still has numbness in her middle, ring, and small fingers, improved from prior She would like to discuss her right carpal & cubital tunnel syndrome, and how long she has to wait until she can have surgery. She says she has a Hx of Thyroid & colon cancer, which has been in remission since ~2019. She says she has a port in her chest which was used for chemotherapy treatment. This is scheduled to be removed sometime in December. She is a Diabetic, which she says is well-controlled. She follows with Pain management and is on a pain contract. She takes Percocets. [facility] Medical History HTN (hypertension) Carpal tunnel syndrome of left wrist Asthma Morbid obesity Diabetes Colon cancer Thyroid cancer Social History Household Members: Family Housing: House Patient Tobacco Use Status: Never used Tobacco service: No Current occupational status: disabled Review of Systems Const All systems reviewed & are unremarkable except as noted in HPI and below Physical Exam Vital Signs: BMI result Body Mass Index 50.4 Const General: no acute distress and alert Orientation/consciousness: patient oriented x3 Neuro General: patient oriented x3 Extrem Other: Evaluation of Left Upper Extremity: The patient is alert, oriented, and in no acute distress All surgical wounds are healing well with no evidence of infection. Neuro: Sensation is now normal in the thumb & index finger. Sensation is improved but not yet normal in the middle, ring, and small fingers. Vascular: Cap refill brisk ROM: She can make a fist and extend all her digits She can actively flex and extend her thumb No locking or catching She can oppose her thumb to all fingers except the small finger which she is only a few mm from touching. Nerve Conduction Study: Right side only IMPRESSION: 1. This is an abnormal study. 2. There is electrodiagnostic evidence for right moderate-severe median neuropathy at the wrist, consistent with carpal tunnel syndrome. 3. There is electrodiagnostic evidence for right ulnar neuropathy at the elbow. 4. There is no electrodiagnostic evidence for ulnar neuropathy, brachial plexopathy, or cervical radiculopathy. Kathy Avilez MD, SARAH 03/04/23 Left side only IMPRESSION: 1. Moderately severe left median neuropathy across carpal tunnel. 2. Moderately severe left ulnar neuropathy across cubital tunnel. Pratik Vaqzuez MD 03/05/2022 Psych Appearance: grossly normal Affect: normal affect Attitude: cooperative Assessment & Plan Assessment & Plan (1) Carpal tunnel syndrome of right wrist: Code(s): G56.01 - Carpal tunnel syndrome, right upper limb Category: Medical (2) Cubital tunnel syndrome on right: Code(s): G56.21 - Lesion of ulnar nerve, right upper limb Category: Medical (3) Carpal tunnel syndrome of left wrist: Code(s): G56.02 - Carpal tunnel syndrome, left upper limb Category: Medical (4) Cubital tunnel syndrome on left: Code(s): G56.22 - Lesion of ulnar nerve, left upper limb Category: Medical (5) Trigger thumb, left thumb: Code(s): M65.312 - Trigger thumb, left thumb Category: Medical (6) Diabetes: Code(s): E11.9 - Type 2 diabetes mellitus without complications Category: Medical Plan Assessment & Plan: 1. Left carpal tunnel syndrome, S/P release DOS: 12/23/23 Pre-operatively with dense numbness Now with improving but not yet normal sensation in the middle finger, normal sensation in the thumb & index ingers 2. Left cubital tunnel syndrome, S/P release DOS: 12/23/23 Pre-operatively with dense numbness Now with improving but not yet normal sensation 3. Left trigger thumb, S/P release DOS: 12/23/23 The patient appears to be doing well post-operatively I ordered OT hand therapy to work on ROM & normalizing function She should work on ROM exercises at home 4. Right carpal tunnel syndrome, moderate-severe Not discussed today 5. Right cubital tunnel syndrome, Not discussed today She will follow up to discuss these issues sometime in late February Scribed for Wanda Bills MD by Charli Gant, biomedical repair technician, on 01/25/24 at 1:20 PM, EST. Orders: Orders OT Evaluation and Treatment Today E11.9 - Type 2 diabetes mellitus without complications, G56.02 - Carpal tunnel syndrome, left upper limb, G56.22 - Lesion of ulnar nerve, left upper limb, M65.312 - Trigger thumb, left thumb Coding Level of Care Code Global (67840) Diagnoses Carpal tunnel syndrome of right wrist G56.01 Cubital tunnel syndrome on right G56.21 Carpal tunnel syndrome of left wrist G56.02 Cubital tunnel syndrome on left G56.22 Trigger thumb, left thumb M65.312 Diabetes E11.9
== END 2024-01-25 13:39 | disposition home or self-care (01) ==
PROVIDERS: PCP Internal Medicine Geriatric Medicine; Visit Provider Orthopaedic Surgery
DX: G56.03 Carpal tunnel syndrome, bilateral upper limbs (principal); G56.21 Lesion of ulnar nerve, right upper limb; G56.22 Lesion of ulnar nerve, left upper limb; M65.312 Trigger thumb, left thumb; E11.9 Type 2 diabetes mellitus without complications
CPT/HCPCS: 99024

== ENCOUNTER → 2024-01-25 12:53 | Outpatient (BNVA) | payer MEDICAID, SELFPAY | PROVIDERS: PCP Internal Medicine Geriatric Medicine; Visit Provider Orthopaedic Surgery | DX: G56.01 Carpal tunnel syndrome, right upper limb (principal); G56.21 Lesion of ulnar nerve, right upper limb; E11.9 Type 2 diabetes mellitus without complications; Z98.890 Other specified postprocedural states | CPT/HCPCS: 99212 ==

== ENCOUNTER 2024-03-07 13:35 | Outpatient (AMB) | payer MEDICAID, SELFPAY ==
--- NOTE | 2024-03-07 13:43 | MHC.OFFVIS ---
Intake Visit Reasons: OV - B/L knee OA, interested in gels Intake Note: Luisa is a 59 year old female who presents to the office today for B/L knee OA. Patient is interested in gel injections. Pt had her last 3 series Euflexxa injections on 08/31/23. Pt states the gel injections gave her 4 months of relief. Allergies cortisone [CORTISONE] Allergy (Mild, Verified 03/07/24 13:47) RASH Penicillins [PENICILLINS] Allergy (Mild, Verified 03/07/24 13:47) RASH bee pollen [BEE STINGS] Allergy (Unknown, Verified 03/07/24 13:47) ANAPHYLAXIS penicillin V Allergy (Unknown, Verified 03/07/24 13:47) Itching adhesive Allergy (Verified 03/07/24 13:48) Rash Cortisone Allergy (Unknown, Uncoded 03/07/24 13:47) Itching HPI HPI OV - B/L knee OA, interested in gels: Details: 59-year-old female, who is St Helenian speaking, presents in the office today for a follow-up of bilateral knee osteoarthritis. I last saw the patient in the office on 08/31/23 when she was given her third Euflexxa injection in the left knee. While in the office today, the patient reports her last Euflexxa gel injection provided her 4 months of relief. She is interested in gel injections. The patient has a medical history of diabetes mellitus. The patient has an allergy history of a cortisone. [facility] Medical History HTN (hypertension) Carpal tunnel syndrome of left wrist Asthma Morbid obesity Diabetes Colon cancer Thyroid cancer Social History Household Members: Family Housing: House Patient Tobacco Use Status: Never used Tobacco service: No Current occupational status: disabled Review of Systems Const All systems reviewed & are unremarkable except as noted in HPI and below Physical Exam Const General: cooperative, healthy appearing and no acute distress Resp Effort & Inspection: normal respiratory effort and able to speak in complete sentences Cardio Rate: regular rate Peripheral pulses: Peripheral pulses 2+ throughout GI Palpation (GI): Soft to palpation Skin Lesions: no lesions Rashes: no rashes Extrem Other: Left knee: Normal to inspection. No ecchymosis, erythema, or joint effusion. No tenderness to palpation to the medial or lateral joint lines. Full knee extension and flexion. Crepitus felt with ROM. Assessment & Plan Assessment & Plan (1) Osteoarthritis of left knee: Code(s): M17.12 - Unilateral primary osteoarthritis, left knee Category: Medical Qualifiers: Osteoarthritis type: unspecified Qualified Code(s): M17.12 - Unilateral primary osteoarthritis, left knee (2) Osteoarthritis of right knee: Code(s): M17.11 - Unilateral primary osteoarthritis, right knee Category: Medical Plan Ezequiel Levy is a 59-year-old female, who is St Helenian speaking, presents in the office today for a follow-up of bilateral knee osteoarthritis. I last saw the patient in the office on 08/31/23 when she was given her third Euflexxa injection in the left knee. While in the office today, the patient reports her last Euflexxa gel injection provided her 4 months of relief. She is interested in gel injections. The patient has a medical history of diabetes mellitus. The patient has an allergy history of cortisone. The office will petition the insurance for approval for a gel injections for bilateral knees. She is allergic to cortisone and is unable to receive a cortisone injection. Follow-up will be after obtaining approval from the insurance for gel injection, or sooner if needed. Patient Instructions: Scribed by Brandy Hardwick medical receptionist medical assistant, for Deysi Bautista PA-C on 03/07/24 at 2:05 pm EST. Coding Level of Care Code Est Pt Level 3 (11380) Diagnoses Osteoarthritis of left knee, unspecified osteoarthritis type M17.12 Osteoarthritis type: unspecified Osteoarthritis of right knee M17.11
== END 2024-03-07 14:11 | disposition home or self-care (01) ==
PROVIDERS: PCP Internal Medicine Geriatric Medicine; Visit Provider Physician Assistant
DX: M17.0 Bilateral primary osteoarthritis of knee (principal)
CPT/HCPCS: 99213

== ENCOUNTER → 2024-03-07 13:35 | Outpatient (BNVA) | payer MEDICAID, SELFPAY | PROVIDERS: PCP Internal Medicine Geriatric Medicine; Visit Provider Physician Assistant | DX: M17.0 Bilateral primary osteoarthritis of knee (principal) | CPT/HCPCS: 99212 ==

== ENCOUNTER 2024-03-29 13:01 | Outpatient (AMB) | payer MEDICAID, SELFPAY ==
[2024-03-29 13:10] VITALS: BMI 50.4
--- NOTE | 2024-03-29 13:10 | MHC.OFFVIS ---
Vital Signs 03/29/24 13:10 Height 5 ft 7 in Weight 322 lb BMI 50.4 Intake Visit Reasons: PO LT CTR, cubital, trigger thumb 12/23/23 AR Intake Note: Luisa is a 58 year old right hand dominant female who presents today post-operatively for a ROM check s/p left CTR, cubital, trigger thumb done 12/23/[address] Bills. Patient reports her left thumb continues to twitch. She has also been experiencing left middle finger locking for one week now. Patient expresses how frustrated she not being able to fully recover to proceed with her right hand. Patient was referred to OT however they were not able to reach her once again. [facility] will not schedule this patient again. Packing And Wrapping Supervisor Required: Yes Packing And Wrapping Supervisor Language: Classroom Teacher Name: MIK Brizuela/GEREMIAS Allergies cortisone [CORTISONE] Allergy (Mild, Verified 03/29/24 13:11) RASH Penicillins [PENICILLINS] Allergy (Mild, Verified 03/29/24 13:11) RASH bee pollen [BEE STINGS] Allergy (Unknown, Verified 03/29/24 13:11) ANAPHYLAXIS penicillin V Allergy (Unknown, Verified 03/29/24 13:11) Itching adhesive Allergy (Verified 03/29/24 13:11) Rash Cortisone Allergy (Unknown, Uncoded 03/29/24 13:11) Itching HPI HPI PO LT CTR, cubital, trigger thumb 12/23/23 AR: Details: Luisa is a 58 year old right hand dominant Diabetic English speaking woman who returns S/P left carpal tunnel release, cubital tunnel release, and trigger thumb release, DOS: 12/23/23. She speaks some Malay.. She reports some generalized soreness still following her surgery. She also complains that her left thumb is twitching on its own at times. She has been performing at-home exercises. She says her sensation has improved somewhat, particularly in the thumb and index fingers, but she still has numbness in her middle, ring, and small fingers, improved from prior Evidently OT hand therapy has had trouble on numerous occasions trying to reach her to schedule appointments for OT hand therapy. She says she has a Hx of Thyroid & colon cancer, which has been in remission since ~2019. She says she has a port in her chest which was used for chemotherapy treatment. This is scheduled to be removed sometime in December. She is a Diabetic, which she says is well-controlled. She follows with Pain management and is on a pain contract. She takes Percocets. [facility] Medical History HTN (hypertension) Carpal tunnel syndrome of left wrist Asthma Morbid obesity Diabetes Colon cancer Thyroid cancer Social History (Reviewed 03/07/24 @ 13:47 by Nereida Torres [facility]) Household Members: Family Housing: House Patient Tobacco Use Status: Never used Tobacco service: No Current occupational status: disabled Physical Exam Vital Signs: BMI result Body Mass Index 50.4 Extrem Other: The patient was alert oriented and in no acute distress. Surgical wounds at the elbow and in the hand are all well healed. They are not particularly tender. With encouragement she can make a fist and extend all of her digits. She can oppose the thumb to all digits and she had no locking or catching with active full range of motion of the thumb today. She complains of some stiffness in the middle finger, but was able to make a fist and extend all digits including the middle finger without difficulty. Full range of motion at the elbow without difficulty. Sensation improved in the thumb and index finger compared with before surgery. Still with some numbness in the middle ring and small fingers. She does think there has been some improvement, the less in the middle finger. Cap refill brisk Nerve Conduction Study: Right side only IMPRESSION: 1. This is an abnormal study. 2. There is electrodiagnostic evidence for right moderate-severe median neuropathy at the wrist, consistent with carpal tunnel syndrome. 3. There is electrodiagnostic evidence for right ulnar neuropathy at the elbow. 4. There is no electrodiagnostic evidence for ulnar neuropathy, brachial plexopathy, or cervical radiculopathy. Kathy Avilez MD, SARAH 03/04/23 Left side only IMPRESSION: 1. Moderately severe left median neuropathy across carpal tunnel. 2. Moderately severe left ulnar neuropathy across cubital tunnel. Pratik Vazquez MD 03/05/2022 Assessment & Plan Assessment & Plan (1) Cubital tunnel syndrome on right: Code(s): G56.21 - Lesion of ulnar nerve, right upper limb Category: Medical (2) Carpal tunnel syndrome of right wrist: Code(s): G56.01 - Carpal tunnel syndrome, right upper limb Category: Medical (3) Trigger thumb, left thumb: Code(s): M65.312 - Trigger thumb, left thumb Category: Medical (4) Cubital tunnel syndrome on left: Code(s): G56.22 - Lesion of ulnar nerve, left upper limb Category: Medical Plan Assessment & Plan: 1. Left carpal tunnel syndrome, S/P release DOS: 12/23/23 Pre-operatively with dense numbness Now with improving but not yet normal sensation in the middle finger, normal sensation in the thumb & index ingers 2. Left cubital tunnel syndrome, S/P release DOS: 12/23/23 Pre-operatively with dense numbness Now with improving but not yet normal sensation 3. Left trigger thumb, S/P release DOS: 12/23/23 The patient appears to be doing well post-operatively I ordered OT hand therapy to work on ROM & normalizing function. They have had trouble getting in touch with her on numerous occasions. I believe the patient plans to go over and talk to them today. I will put in a new OT hand therapy order to help her regain normal function. She should work on ROM exercises at home 4. Right carpal tunnel syndrome, moderate-severe Not discussed today 5. Right cubital tunnel syndrome, Not discussed today We can discuss treatment of the right side at a later date after she is satisfied with the improvement on the left side. Coding Level of Care Code Est Pt Level 3 (14383) Diagnoses Cubital tunnel syndrome on right G56.21 Carpal tunnel syndrome of right wrist G56.01 Trigger thumb, left thumb M65.312 Cubital tunnel syndrome on left G56.22
== END 2024-03-29 13:51 | disposition home or self-care (01) ==
PROVIDERS: PCP Internal Medicine Geriatric Medicine; Visit Provider Orthopaedic Surgery
DX: G56.21 Lesion of ulnar nerve, right upper limb (principal); G56.01 Carpal tunnel syndrome, right upper limb; M65.312 Trigger thumb, left thumb; G56.22 Lesion of ulnar nerve, left upper limb
CPT/HCPCS: 99213

== ENCOUNTER → 2024-03-29 13:01 | Outpatient (BNVA) | payer MEDICAID, SELFPAY | PROVIDERS: PCP Internal Medicine Geriatric Medicine; Visit Provider Orthopaedic Surgery | DX: G56.02 Carpal tunnel syndrome, left upper limb (principal); G56.23 Lesion of ulnar nerve, bilateral upper limbs; M65.312 Trigger thumb, left thumb; M65.352 Trigger finger, left little finger | CPT/HCPCS: 99212 ==

== ENCOUNTER 2024-04-10 16:15 | Outpatient (REF) | payer MEDICAID, SELFPAY | END 2024-04-10 16:16 | disposition home or self-care (01) | LOC: HO.LNP 16:15 | PROVIDERS: Visit Provider Nurse Practitioner Family | DX: R39.9 Unspecified symptoms and signs involving the genitourinary system (principal) | CPT/HCPCS: 87086 ==

== ENCOUNTER 2024-05-04 14:21 | Outpatient (AMB) | payer MEDICAID, SELFPAY ==
--- NOTE | 2024-05-04 14:26 | A.OFFVIS_ITS ---
Intake Visit Reasons: B/L Euflexxa Gel Injections #1 Intake Note: Luisa is a 59 year old female who presents today for her B/L Euflexxa Gel Injections #1. Allergies cortisone [CORTISONE] Allergy (Mild, Verified 05/04/24 14:33) RASH Penicillins [PENICILLINS] Allergy (Mild, Verified 05/04/24 14:33) RASH bee pollen [BEE STINGS] Allergy (Unknown, Verified 05/04/24 14:33) ANAPHYLAXIS penicillin V Allergy (Unknown, Verified 05/04/24 14:33) Itching adhesive Allergy (Verified 05/04/24 14:33) Rash Cortisone Allergy (Unknown, Uncoded 03/29/24 13:11) Itching HPI HPI B/L Euflexxa Gel Injections #1: Details: 59-year-old female, who is [place] speaking, presents in the office today for a follow-up of bilateral knee pain and to obtain her first Euflexxa injection in a series of 3. I last saw the patient in the office on 03/07/24, when we discussed Euflexxa injection to petition for insurance coverage. While in the office today, the patient is interested in obtaining her Euflexxa injection in the bilateral knees. The patient has a medical history of diabetes mellitus. The patient has an allergy history of cortisone. [facility] Medical History HTN (hypertension) Carpal tunnel syndrome of left wrist Asthma Morbid obesity Diabetes Colon cancer Thyroid cancer Social History Household Members: Family Housing: House Patient Tobacco Use Status: Never used Tobacco service: No Current occupational status: disabled Review of Systems Const All systems reviewed & are unremarkable except as noted in HPI and below Physical Exam Const General: cooperative, healthy appearing and no acute distress Resp Effort & Inspection: normal respiratory effort and able to speak in complete sentences Cardio Rate: regular rate Peripheral pulses: Peripheral pulses 2+ throughout GI Palpation (GI): Soft to palpation Skin Lesions: no lesions Rashes: no rashes Extrem Other: Left knee: Normal to inspection. No ecchymosis, erythema, or joint effusion. No tenderness to palpation to the medial or lateral joint lines. Full knee extension and flexion. Crepitus felt with ROM. Office Procedures AMB Joint Injection/Aspiration Joint Injection/Aspiration Primary Site: right knee Secondary Site: left knee Prep: site was prepped using aseptic technique, ethochloride spray was applied and injection warnings given Injected: other (Euflexxa #1) Approach Used: anterolateral Procedure: The patient tolerated the procedure well, but had some pain with the injection and there was some relief with the local anesthesia Coding 31658 - Large joint Procedure code (CPT) selection complete Assessment & Plan Assessment & Plan (1) Osteoarthritis of left knee: Code(s): M17.12 - Unilateral primary osteoarthritis, left knee Category: Medical Qualifiers: Osteoarthritis type: unspecified Qualified Code(s): M17.12 - Unilateral primary osteoarthritis, left knee (2) Osteoarthritis of right knee: Code(s): M17.11 - Unilateral primary osteoarthritis, right knee Category: Medical Plan Ezequiel Levy is a 59-year-old female, who is [place]ut[place] speaking, presents in the office today for a follow-up of bilateral knee pain and to obtain her first Euf lexxa injection in a series of 3. I last saw the patient in the office on 03/07/24, when we discussed Euflexxa injection to petition for insurance coverage. While in the office today, the patient is interested in obtaining her Euflexxa injection in the bilateral knees. The patient has a medical history of diabetes mellitus. The patient has an allergy history of cortisone. The patient was injected with her first Euflexxa injection in the bilateral knees. The patient was explained the risks, benefits, and alternatives to receiving this injection. After receiving consent for the injection, the patient had the procedure done while in the office today. The patient tolerated the procedure well with no complications. Follow-up will be in one week for a second Euflexxa injection, or sooner if needed. Patient Instructions: Scribed by Brandy Hardwick medical collections specialist, for Deysi Bautista PA-C on 05/04/24 at 3:13 pm EST. Coding Level of Care Code Procedure Only Diagnoses Osteoarthritis of left knee, unspecified osteoarthritis type M17.12 Osteoarthritis type: unspecified Osteoarthritis of right knee M17.11 CPT Codes Coding - Large joint: 99332 - Large joint ([id number])
== END 2024-05-04 14:40 | disposition home or self-care (01) ==
PROVIDERS: PCP Internal Medicine Geriatric Medicine; Visit Provider Physician Assistant
DX: M17.0 Bilateral primary osteoarthritis of knee (principal)
CPT/HCPCS: 20610

== ENCOUNTER → 2024-05-04 14:21 | Outpatient (BNVA) | payer MEDICAID, SELFPAY | PROVIDERS: PCP Internal Medicine Geriatric Medicine; Visit Provider Physician Assistant | DX: M17.0 Bilateral primary osteoarthritis of knee (principal) | CPT/HCPCS: 20610; J7323 ==

== ENCOUNTER 2024-05-11 09:21 | Outpatient (AMB) | payer MEDICAID, SELFPAY ==
--- NOTE | 2024-05-11 09:31 | MHC.OFFVIS ---
Intake Visit Reasons: B/L Euflexxa Gel Injections #2 Intake Note: Luisa is a 59 year old female who presents today for her B/L Euflexxa Gel Injections #2. Patient reports no changes yet in her pain. She points out having some itchiness on her knee not sure if it is from the spray or injection. Allergies cortisone [CORTISONE] Allergy (Mild, Verified 05/11/24 09:34) RASH Penicillins [PENICILLINS] Allergy (Mild, Verified 05/11/24 09:34) RASH bee pollen [BEE STINGS] Allergy (Unknown, Verified 05/11/24 09:34) ANAPHYLAXIS penicillin V Allergy (Unknown, Verified 05/11/24 09:34) Itching adhesive Allergy (Verified 05/11/24 09:34) Rash Cortisone Allergy (Unknown, Uncoded 03/29/24 13:11) Itching HPI HPI B/L Euflexxa Gel Injections #2: Details: 59-year-old female, who is Dutch speaking, presents in the office today for a follow-up of bilateral knee pain and to obtain her second Euflexxa injection in a series of 3. I last saw the patient in the office on 05/04/24, when she received her first Euflexxa injection in the bilateral knees. While in the office today, the patient reports bilateral knee pain. She has not noticed any changes in her pain with her first Euflexxa injection. She mentions experiencing mild itchiness on her knee; however, she is not sure whether the itchiness is secondary from the injection or from the spray. The patient has a medical history of diabetes mellitus. She has an allergy history of cortisone. [facility] Medical History HTN (hypertension) Carpal tunnel syndrome of left wrist Asthma Morbid obesity Diabetes Colon cancer Thyroid cancer Social History Household Members: Family Housing: House Patient Tobacco Use Status: Never used Tobacco service: No Current occupational status: disabled Review of Systems Const All systems reviewed & are unremarkable except as noted in HPI and below Physical Exam Const General: cooperative, healthy appearing and no acute distress Resp Effort & Inspection: normal respiratory effort and able to speak in complete sentences Cardio Rate: regular rate Peripheral pulses: Peripheral pulses 2+ throughout GI Palpation (GI): Soft to palpation Skin Lesions: no lesions Rashes: no rashes Extrem Other: Bilateral knees: Normal to inspection. No ecchymosis, erythema, or joint effusion. No tenderness to palpation to the medial or lateral joint lines. Full knee extension and flexion. Crepitus felt with ROM. Office Procedures Joint Inj/Aspir; Non-Pain Clin Joint Injection/Drain Prep: site was prepped using aseptic technique, site was prepped using sterile technique and injection warnings given Approach Used: anterolateral Procedure: The patient tolerated the procedure well, but had some pain with the injection and there was some relief with the local anesthesia Shoulders, Hips, Knees, Knee Large Joint Injection 44937: Bilateral Knee (Euflexxa #2) Coding Procedure code (CPT) selection complete Assessment & Plan Assessment & Plan (1) Osteoarthritis of left knee: Code(s): M17.12 - Unilateral primary osteoarthritis, left knee Category: Medical Qualifiers: Osteoarthritis type: unspecified Qualified Code(s): M17.12 - Unilateral primary osteoarthritis, left knee (2) Osteoarthritis of right knee: Code(s): M17.11 - Unilateral primary osteoarthritis, right knee Category: Medical Plan Ms. Ezequiel Levy is a 59-year-old female, who is Dutch speaking, present in the office today for a follow-up of bilateral knee pain and to obtain her second Euflexxa injection in a series of 3. I last saw the patient in the office on 05/04/24, when she received her first Euflexxa injection in the bilateral knees. While in the office today, the patient reports bilateral knee pain. She has not noticed any changes in her pain with her first Euflexxa injection. She mentions experiencing mild itchiness on her knee; however, she is not sure whether the itchiness is secondary from the injection or from the spray. The patient has a medical history of diabetes mellitus. She has an allergy history of cortisone. The patient was injected with her second Euflexxa injection in the bilateral knees. The patient was explained the risks, benefits, and alternatives to receiving this injection. After receiving consent for the injection, the patient had the procedure done while in the office today. The patient tolerated the procedure well with no complications. Follow-up will be in a week for a third Euflexxa injection, or sooner if needed. Orders: Referrals Orthopedics Referral [id number] - Pain in right foot Patient Instructions: Scribed by Brandy Hardwick, medical device assembler, for Deysi Bautista PA-C on 05/11/24 at 9:40 am EST. Coding Level of Care Code Procedure Only Diagnoses Osteoarthritis of left knee, unspecified osteoarthritis type M17.12 Osteoarthritis type: unspecified Osteoarthritis of right knee M17.11 CPT Codes Shoulders, Hips, Knees, - Knee Large Joint Injection 58404: Bilateral Knee ([id number])
== END 2024-05-11 10:13 | disposition home or self-care (01) ==
LOC: HO.HOS 09:21
PROVIDERS: PCP Internal Medicine Geriatric Medicine; Visit Provider Physician Assistant
DX: M17.0 Bilateral primary osteoarthritis of knee (principal)
CPT/HCPCS: 20610

== ENCOUNTER → 2024-05-11 09:21 | Outpatient (BNVA) | payer MEDICAID, SELFPAY | PROVIDERS: PCP Internal Medicine Geriatric Medicine; Visit Provider Physician Assistant | DX: M17.0 Bilateral primary osteoarthritis of knee (principal); M79.671 Pain in right foot | CPT/HCPCS: 20610; J7323 ==

== ENCOUNTER 2024-05-25 13:23 | Outpatient (AMB) | payer MEDICAID, SELFPAY ==
--- NOTE | 2024-05-25 13:42 | A.OFFVIS_ITS ---
Vital Signs 05/25/24 14:01 Height 5 ft 7 in Weight 322 lb BMI 50.4 Intake Visit Reasons: B/L Euflexxa Gel Injections #3 Intake Note: Luisa is a 59 year old female who presents today for her B/L Euflexxa Gel Injections #3. Patient reports hasnt noticed any changes yet in her pain. Allergies cortisone [CORTISONE] Allergy (Mild, Verified 05/25/24 13:42) RASH Penicillins [PENICILLINS] Allergy (Mild, Verified 05/25/24 13:42) RASH bee pollen [BEE STINGS] Allergy (Unknown, Verified 05/25/24 13:42) ANAPHYLAXIS penicillin V Allergy (Unknown, Verified 05/25/24 13:42) Itching adhesive Allergy (Verified 05/25/24 13:42) Rash Cortisone Allergy (Unknown, Uncoded 03/29/24 13:11) Itching HPI HPI B/L Euflexxa Gel Injections #3: Details: 59-year-old female, who is Indonesian speaking, presents in the office today for a follow-up of bilateral knee pain and to obtain her third Euflexxa injection in a series of 3. [facility] Medical History HTN (hypertension) Carpal tunnel syndrome of left wrist Asthma Morbid obesity Diabetes Colon cancer Thyroid cancer Social History Household Members: Family Housing: House Patient Tobacco Use Status: Never used Tobacco service: No Current occupational status: disabled Review of Systems Const All systems reviewed & are unremarkable except as noted in HPI and below Physical Exam Vital Signs: BMI result Body Mass Index 50.4 Const General: cooperative, healthy appearing and no acute distress Resp Effort & Inspection: normal respiratory effort and able to speak in complete sentences Cardio Rate: regular rate Peripheral pulses: Peripheral pulses 2+ throughout Skin Lesions: no lesions Rashes: no rashes Extrem Other: Bilateral knees: Normal to inspection. No ecchymosis, erythema, or joint effusion. No tenderness to palpation to the medial or lateral joint lines. Full knee extension and flexion. Crepitus felt with ROM. Office Procedures AMB Joint Injection/Aspiration Joint Injection/Aspiration Primary Site: right knee Secondary Site: left knee Prep: site was prepped using aseptic technique, ethochloride spray was applied and injection warnings given Injected: in the joint (Euflexxa #3) Approach Used: anterolateral Procedure: The patient tolerated the procedure well, but had some pain with the injection and there was some relief with the local anesthesia Coding 60944 - Large joint Procedure code (CPT) selection complete Assessment & Plan Assessment & Plan (1) Osteoarthritis of left knee: Code(s): M17.12 - Unilateral primary osteoarthritis, left knee Category: Medical Qualifiers: Osteoarthritis type: unspecified Qualified Code(s): M17.12 - Unilateral primary osteoarthritis, left knee (2) Osteoarthritis of right knee: Code(s): M17.11 - Unilateral primary osteoarthritis, right knee Category: Medical Plan Ms. Ezequiel Levy is a 59-year-old female, who is Indonesian speaking, present in the office today for a follow-up of bilateral knee pain and to obtain her third Euflexxa injection in a series of three. The patient was injected with her third, and final Euflexxa injection in the bilateral knees. The patient was explained the risks, benefits, and alternatives to receiving this injection. After receiving consent for the injection, the patient had the procedure done while in the office today. The patient tolerated the procedure well with no complications. Follow-up will be p.r.n., sooner if needed. Coding Level of Care Code Procedure Only Diagnoses Osteoarthritis of left knee, unspecified osteoarthritis type M17.12 Osteoarthritis type: unspecified Osteoarthritis of right knee M17.11 CPT Codes Coding - 65276 Large joint: 93191 - Large joint ([id number])
[2024-05-25 14:01] VITALS: BMI 50.4
== END 2024-05-25 13:53 | disposition home or self-care (01) ==
PROVIDERS: PCP Internal Medicine Geriatric Medicine; Visit Provider Physician Assistant
DX: M17.0 Bilateral primary osteoarthritis of knee (principal)
CPT/HCPCS: 20610

== ENCOUNTER → 2024-05-25 13:23 | Outpatient (BNVA) | payer MEDICAID, SELFPAY | PROVIDERS: PCP Internal Medicine Geriatric Medicine; Visit Provider Physician Assistant | DX: M17.0 Bilateral primary osteoarthritis of knee (principal) | CPT/HCPCS: 20610; J7323 ==

== ENCOUNTER 2024-06-02 13:00 | Outpatient (RCR) | payer MEDICAID, SELFPAY ==
--- NOTE | 2024-05-01 12:42 | MHC.OT.EP ---
[address] [phone] Occupational Therapy Plan of Care Patient Name: Luisa Levy Date of Evaluation: 04/21/24 Diagnosis: CT, Cubital Tunnel, L thumb trigger finger release Pain Location: more in the hand but she feels the elbow gets stuck in flexion Pain Score: 8 Pain Scale Used: Numeric (0 - 10) Aggravating Factors: Alleviating Factors: Pt is on oxycodone for comorbidities Assessment: Pt is a 59 yr. old R hand dominant female who had CTR surgery, cubital tunnel, and trigger finger release surgery of her L hand/ thumb in December. She reports she continues to have pain, weakness, and numbness in her L hand. 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 Thank you once again for your referral.
--- NOTE | 2024-07-07 09:37 | MHC.OT.DC ---
[address] [phone] F: [phone] Occupational Therapy Discharge Note Patient Name: Luisa Levy Provider: Wanda Bills Diagnosis: CT, Cubital Tunnel, L thumb trigger finger release Date of Surgery: 12/23/23 Date of Evaluation: 04/21/24 Date of Discharge: Treatments to Date: 5 Cancellations to Date: No Shows to Date: Discharge Status: Visit Non-compliance Discharge Summary: PT WAS LAST SEEN BY OT THERAPY ON 06/02. SHE DID NOT FOLLOW UP W/ THERAPY Electronically Signed By: Elidia Mejias OTR/L Reviewed/agree with student documentation: Therapist: Please Sign and return to therapist, thank you for your referral.
== END 2024-07-07 09:38 | disposition home or self-care (01) ==
LOC: HO.OT 13:00
PROVIDERS: PCP Internal Medicine Geriatric Medicine; Visit Provider Orthopaedic Surgery
DX: M65.312 Trigger thumb, left thumb (principal); G56.22 Lesion of ulnar nerve, left upper limb; G56.02 Carpal tunnel syndrome, left upper limb
CPT/HCPCS: 97035; 97110; 97140; 97166; 97535; 97760

== ENCOUNTER 2024-06-18 13:46 | Inpatient (IN) | payer MEDICAID, SELFPAY ==
[2024-06-18] VITALS (18 sets, daily range): BP systolic 83–129; BP diastolic 43–69; PULSE 68–87; RESP 13–32; TEMP 36.5–37.1; O2SAT 91–98; BMI 54.7
--- NOTE | ~2024-06-18 | US_ITS ---
EXAMINATION: US ABDOMEN LIMITED CLINICAL INFORMATION: Elevated liver enzymes. Status post liver biopsy.. COMPARISON: June 18, 2024 and ultrasound guidance dated June 26, 2024. TECHNIQUE: Real-time imaging of the right upper quadrant abdominal viscera, Limited. FINDINGS: Heterogeneous nodular appearance of the liver. No gross subcapsular or perihepatic fluid collections. US/US abdomen limited IMPRESSION: No overt hematoma in the images acquired by the sterile processing technologist. Electronically signed by: Leonardo Chandler MD 06/27/2024 12:18 PM [facility]
--- NOTE | ~2024-06-18 | IR_ITS ---
CLINICAL HISTORY: Patient requires dialysis. The patient presents to interventional radiology for placement of a non-tunneled central venous catheter for hemodialysis. PROCEDURES: 1. Real-time ultrasound-guided access into the right internal jugular vein after documentation of selected vessel patency, and permanent imaging storing in the patient record. 2. Placement of a 12.0 fr 20 cm non-tunneled, triple-lumen hemodialysis catheter. Clinician: Dionte Cochran PA-C MEDICATIONS: -Lidocaine 1% 10 mL SQ. -For additional details, please see nursing flowsheet. COMPLICATIONS: None. ESTIMATED BLOOD LOSS: <5 ml SPECIMENS: None FLUOROSCOPY TIME: 1.3 min PROCEDURE NOTE: The procedure, risks, benefits, and alternatives were carefully explained to patient, and written informed consent was obtained. The patient was placed supine on the fluoroscopy table. A timeout was performed. The right neck and chest was prepped and draped in usual sterile fashion. Local anesthesia was administered to the access site with lidocaine. Under ultrasound guidance, the right internal jugular vein was accessed with a 4 Fr micropuncture set. A 0.035 in wire was advanced into the IVC. The tract in the vein was serially dilated. Over the wire, a 12.0 fr 20 cm non-tunneled, triple-lumen lumen hemodialysis catheter was advanced, with the tip located at the cavoatrial junction. The wire was removed. The catheter was tested, flushed, and sutured to the skin. A permanent fluoroscopic image of the chest was saved to PACS. The patient was stable after the procedure and was transferred to the medical floor. There were no immediate complications. FINDINGS: 1. Patent right internal jugular vein. 2. Placement of a non-tunneled, triple-lumen hemodialysis catheter as above. 3. Catheter flushes and aspirates very well with a 10 mL syringe. No pneumothorax. IR/IR cvc insert non tunnel IMPRESSION: Placement of a non-tunneled hemodialysis catheter in the right internal jugular vein. PLAN: -The catheter may be used immediately. This procedure was performed by Dionte Cochran PA-C, and directly supervised by Dr. Salas. Electronically signed by: Rambo Salas MD 06/27/2024 04:52 PM [facility]
--- NOTE | ~2024-06-18 | US_ITS ---
Diffuse liver masses. History of colon cancer. Septic shock. PROCEDURES: 1. Limited preprocedure ultrasound of the abdomen. Permanent images saved in PACS. 2. Ultrasound-guided biopsy of the left lobe liver mass. 3. Limited preprocedure ultrasound of the abdomen. Permanent images saved in PACS. CLINICIANS: Dionte Cochran PA-C MEDICATIONS: -Lidocaine 1% 5 mL SQ -Antibiotics: None -For additional details, please see nursing flowsheet. COMPLICATIONS: None ESTIMATED BLOOD LOSS: < 5 ml CONTRAST: None SPECIMENS: 3 x 20 g cores were sent to pathology PROCEDURE NOTE: The procedure, risks, benefits, and alternatives were carefully explained to the patient's daughter and informed consent was obtained. A timeout was performed. A limited ultrasound of the abdomen was performed to localize a superficial left lobe liver lesion and choose appropriate needle entry and trajectory. The patient was prepped and draped in usual sterile fashion. The skin and deeper soft tissues were anesthetized with lidocaine. Under ultrasound guidance, a 19 gauge trocar needle was advanced to the liver lesion. A 20 gauge biopsy device was inserted through the trocar needle advanced into the liver lesion. A total of 3, 20 gauge cores were performed. The specimens were placed in formalin. A total of 2 Gelfoam torpedoes were then administered through the trocar needle into the biopsy tract and at the level of the liver capsule. The needle was removed. A limited post procedure ultrasound was then performed. Images were saved in PACS. A dry dressing was applied and secured with Tegaderm. There were no immediate complications. US/US biopsy liver Impression: Ultrasound-guided biopsy of a left lobe liver mass. This procedure was performed by Dionte Cochran PA-C and supervised by Dr. Salas. Electronically signed by: Rambo Salas MD 06/27/2024 04:51 PM [facility]
--- NOTE | ~2024-06-18 | XR_ITS ---
CLINICAL HISTORY: OG tube placement Abdominal radiograph Comparison: CT/MS/SR - CT ABDOMEN PELVIS W IV CON - 06/23/24 13:56 EST Findings: The orogastric tube terminates in the left mid abdomen. Partially visualized dilated loops of bowel. No pneumoperitoneum or pneumatosis. No acute osseous or soft tissue abnormality. Impression: Properly positioned orogastric tube. This document has been electronically signed by: Josephine Nicole MD on 06/25/2024 13:04:29
--- NOTE | ~2024-06-18 | CT_ITS ---
EXAMINATION: CT ABDOMEN PELVIS WITH IV CONTRAST HISTORY: metabolic acidosis, anuria, ?bowel ischemia COMPARISON: Comparison is made with the prior examination dated 06/18/2024. TECHNIQUE: CT scan of the abdomen and pelvis was performed following administration of 85 mL Omnipaque 350 using standard departmental protocol. Coronal and sagittal reformatted images were generated and reviewed. Oral contrast material was not administered at the request of the referring physician. This CT exam was performed with one or more of the following dose reduction techniques: automated exposure control, adjustment of the mA and/or kV according to patient size, use of iterative reconstruction technique. DLP: 1347 mGy-cm FINDINGS: LOWER CHEST: There is patchy opacity at the lung bases, which likely represents subsegmental atelectasis. There is a trace right pleural effusion. CARDIOVASCULATURE: The heart is normal in size. There is no pericardial effusion. LIVER: The liver remains enlarged. Again seen are innumerable masses within the liver consistent with metastatic disease. The main portal vein is patent. GALLBLADDER / BILE DUCTS: There is hyperdense fluid in the gallbladder, compatible with vicarious excretion from the prior CT. There is no intra or extrahepatic biliary ductal dilatation. SPLEEN: The spleen is normal in size. No focal splenic lesion is identified. PANCREAS: The pancreas is unremarkable in appearance. ADRENAL GLANDS: Within normal limits. KIDNEYS/RETROPERITONEUM: No renal calculi are identified. There is no hydronephrosis. There is markedly heterogeneous enhancement of the kidneys which may be due to patient body habitus and artifact from the patient's arms. Pyelonephritis, especially on the right, cannot be excluded. LYMPH NODES: No abdominal or pelvic lymphadenopathy. VASCULATURE: The abdominal aorta is normal in caliber. MESENTERY/PERITONEUM: There is a small amount of free free fluid noted. There is no free intraperitoneal gas. STOMACH: The stomach is collapsed, limiting evaluation. SMALL BOWEL: Again seen are at least 3 ventral hernias. The largest most superior hernia contains multiple loops of small bowel which are prominent but do not demonstrate wall thickening or pneumatosis. The most inferior hernia contains a loop of small bowel and fluid. The bowel loop is not distinguishable from the fluid which could be a sign of ischemia. Evaluation is limited. COLON: The patient appears to be status post partial colectomy. APPENDIX: The appendix is surgically absent. URINARY BLADDER/PELVIC ORGANS: The urinary bladder is collapsed, limiting evaluation. The uterus is unremarkable. BONES / SOFT TISSUES: There is degenerative disc disease of the spine. CT/CT abdomen pelvis w IV con IMPRESSION: 1. Hepatomegaly and diffuse hepatic metastatic disease as seen previously. 2. Markedly heterogeneous enhancement of the kidneys which could be artifactual. Nephritis is not excluded, especially on the right. 3. Multiple ventral hernias containing bowel. The most inferior hernia contains fluid and a single bowel loop which poorly enhances. Ischemia is not excluded. There is no pneumatosis, free intraperitoneal gas, or portal venous gas. 4. Findings were discussed with Dr. Briggs on 06/23/2024 at 2:58 PM. Electronically signed by: Tj Hager MD 06/23/2024 03:04 PM [facility]
--- NOTE | ~2024-06-18 | US_ITS ---
CLINICAL HISTORY: elva, abd US on 2 2, repeat kidneys per ordering MD US Renal Comparison: None Findings: Portions of the kidneys obscured by side lobe artifacts. Right kidney measures 13.7 cm length. Left kidney measures 11.6 cm length. No hydronephrosis of the either partially imaged kidney. No definite shadowing nephrolithiasis by ultrasound. IMPRESSION: No hydronephrosis of either imaged kidney. This document has been electronically signed by: Charli Quiroz MD on 06/20/2024 19:06:49
--- NOTE | ~2024-06-18 | XR_ITS ---
CLINICAL HISTORY: Intubated 1 view chest x-ray Comparison: None Findings: Endotracheal tube 2.8 cm above jc. Right jugular central line tip in right atrium. Cardiomegaly with perihilar vascular prominence. Bilateral basilar consolidation, greater on left. Probable acute pulmonary edema pattern. No acute bony abnormality. Impression: Support lines as above Probable acute pulmonary edema This document has been electronically signed by: Luke Johnson MD on 06/24/2024 21:12:27
--- NOTE | ~2024-06-18 | XR_ITS ---
CLINICAL HISTORY: worsening hypoxia 1 view chest x-ray Comparison: CR - XR CHEST 1V - 06/25/24 11:50 EST Findings: The endotracheal tube is approximately 3.5 cm above the jc. Right IJ temporary dialysis catheter tip well-positioned. Enteric tube projects off the image inferiorly. Central vascular and interstitial prominence. Cardiac and mediastinal contours are prominent. No acute fracture. IMPRESSION: Tubes and lines are well-positioned. Mild interstitial edema suggested. This document has been electronically signed by: Sonu Pierre MD on 06/28/2024 04:55:08
--- NOTE | ~2024-06-18 | CT_ITS ---
CLINICAL HISTORY: HERNIA. ELEVATED LACTATE. INCARCERATED HERNIA? CT abdomen and pelvis with contrast Comparison: CT/SR - CT ABDOMEN PELVIS W IV CON - 06/18/24 15:[address]/REG/AL - CT ABDOMEN PELVIS WO CON - 02/26/21 21:[address]/REG/AL/SR - ABD PELVIS WITH CONT 15870 - 06/09/18 15:58 EST Findings: No consolidation or effusion. Gallbladder is not well seen, but appears contracted, with surrounding fat stranding. There are multiple low-density masses within the hepatic parenchyma. Solid organs are otherwise within normal limits. Incompletely visualized small and large bowel containing anterior abdominal wall hernia measuring at least 19 cm transverse, containing thickened small bowel loops with small amount of fluid. Anterior pelvic wall small-bowel and large bowel containing hernias are present, the most inferior of which measures 5 cm transverse, the more superior of which measures 5 cm transverse. Small amount of pelvic ascites. Appendix is not seen. No acute fracture. Multilevel disc space narrowing and endplate osteophyte formation, as well as facet hypertrophy. IMPRESSION: 1. Multiple abdominopelvic bowel containing hernias as described above. The abdominal wall hernia contains thickened small bowel loops with surrounding fluid, which would be consistent with incarceration. There is no evidence of associated bowel obstruction. 2. Small amount of pelvic ascites. 3. Severe degree of hepatic metastatic disease. 4. Contracted gallbladder with possible surrounding fat stranding which could indicate acute cholecystitis. This could be further assessed with ultrasound, if clinically indicated. Signed By: Sugey Lowe MD This document has been electronically signed by: Sugey Lowe MD on 06/18/2024 20:38:47
--- NOTE | ~2024-06-18 | US_ITS ---
CLINICAL HISTORY: abnormal LFTs, pain US abdomen limited Comparison: None Findings: Examination limited by body habitus and positioning factors. Pancreas is not well seen. The liver is enlarged and demonstrates diffusely heterogeneously increased echotexture. There is no intrahepatic bile duct dilatation. The common duct is 3 mm in diameter. There are possible gallbladder calculi present.. Scratch the The right kidney is 13.8 cm in length. No ascites. IMPRESSION: 1. Possible cholelithiasis. This document has been electronically signed by: Sugey Lowe MD on 06/18/2024 18:53:15
--- NOTE | 2024-06-18 14:07 | ED.GENADULT ---
HPI - General Adult General Chief complaint: Abdominal Pain Stated complaint: hernia pain Time Seen by Provider: 06/18/24 15:01 Related Data Home Medications ?Medication ?Instructions ?Recorded ?Confirmed cholecalciferol (vitamin D3) 25 1 cap PO DAILY 02/26/21 02/17/23 mcg (1,000 unit) capsule fluticasone propionate 220 1 puff inhalation BID 02/26/21 02/17/23 mcg/actuation HFA aerosol inhaler (Flovent HFA) levothyroxine 200 mcg tablet 400 mcg PO DAILY 02/26/21 02/17/23 lidocaine 5 % topical patch 1 patch topical DAILY 02/26/21 02/17/23 metformin 500 mg tablet 1 tab PO BID 02/26/21 02/17/23 multivitamin with folic acid 400 1 tab PO DAILY 02/26/21 02/17/23 mcg tablet (Daily-Loida (with folic acid)) oxycodone-acetaminophen 7.5 mg-325 1 tab PO QID PRN Pain, Moderate 02/26/21 02/17/23 mg tablet pantoprazole 20 mg tablet,delayed 1 tab PO DAILY 02/26/21 02/17/23 release paroxetine HCl 40 mg tablet 1 tab PO DAILY 02/26/21 02/17/23 zolpidem 10 mg tablet 1 tab PO BEDTIME PRN Sleep 02/26/21 02/17/23 acetic acid 2 % ear solution ml otic (ear) left 02/10/22 02/17/23 albuterol sulfate 90 mcg/actuation 2 puff inhalation Q4-6H PRN 02/10/22 02/17/23 aerosol inhaler (ProAir HFA) amitriptyline 10 mg tablet 10 mg PO BEDTIME 02/10/22 02/17/23 bupropion HCl 150 mg 24 hr tablet, 150 mg PO QAM 02/10/22 02/17/23 extended release celecoxib 100 mg capsule 100 mg PO DAILY 02/10/22 02/17/23 clindamycin HCl 300 mg capsule 600 mg PO Q8H 02/10/22 02/17/23 diclofenac sodium 1 % topical gel 2 g topical BID 02/10/22 02/17/23 docusate sodium 100 mg capsule 100 mg PO BID 02/10/22 02/17/23 epinephrine 0.3 mg/0.3 mL IM 02/10/22 02/17/23 injection, auto-injector fluticasone propionate 50 2 spray intranasal DAILY 02/10/22 02/17/23 mcg/actuation nasal spray,suspension gabapentin 300 mg capsule 300 mg PO DAILY PRN pain 02/10/22 02/17/23 hydrocortisone 1 % topical cream topical DAILY 02/10/22 02/17/23 with perineal applicator losartan 25 mg tablet 25 mg PO DAILY 02/10/22 02/17/23 metformin 1,000 mg tablet 1,000 mg PO 02/10/22 02/17/23 naloxone 4 mg/actuation nasal 0 spray intranasal 02/10/22 02/17/23 spray (Narcan) ondansetron HCl 4 mg tablet 4 mg PO TID PRN nausea 02/10/22 02/17/23 tizanidine 2 mg tablet 2 mg PO Q12H PRN pain 02/10/22 02/17/23 Previous Rx's ?Medication ?Instructions ?Recorded amlodipine 2.5 mg tablet 2.5 mg PO DAILY #14 tabs 03/02/21 oxycodone-acetaminophen 5 mg-325 1 tab PO Q6H PRN pain #25 tabs 12/23/23 mg tablet ibuprofen 800 mg tablet 800 mg PO TID PRN for pain #90 tabs 05/08/24 Allergies Allergy/AdvReac Type Severity Reaction Status Date / Time cortisone [CORTISONE] Allergy Mild RASH Verified 06/18/24 14:02 Penicillins [PENICILLINS] Allergy Mild RASH Verified 06/18/24 14:02 bee pollen [BEE STINGS] Allergy Unknown ANAPHYLAXIS Verified 06/18/24 14:02 penicillin V Allergy Unknown Itching Verified 06/18/24 14:02 adhesive Allergy Rash Verified 06/18/24 14:02 Cortisone Allergy Unknown Itching Uncoded 03/29/24 13:11 [facility] Past Medical History Medical History (Updated 06/18/24 @ 20:15 by Nicolasa Pemberton DO) HTN (hypertension) Carpal tunnel syndrome of left wrist Asthma Morbid obesity Diabetes Colon cancer Thyroid cancer Surgical History (Updated 06/18/24 @ 17:21 by Bharat Powell MD) H/O ventral hernia repair History of removal of laparoscopic gastric banding device Hx of laparoscopic gastric banding H/O colectomy H/O thyroidectomy Social History Social History Household Members: Family Housing: House Patient Tobacco Use Status: Never used Tobacco Advance Directives: No Advance Directives Information Provided: Yes Do you have a plan to hurt others: No Plan service: No Current occupational status: disabled Physical Exam ED Vital Signs: Vital Signs - 24 hr 06/18/24 13:59 06/18/24 16:00 06/18/24 16:08 Temperature 98.7 F 97.7 F Pulse Rate 87 82 Respiratory Rate 18 18 14 Blood Pressure 129/68 119/69 Pulse Oximetry 98 96 Oxygen Delivery Method Room Air Room Air Oxygen Flow Rate 06/18/24 18:00 06/18/24 18:21 06/18/24 18:30 Temperature 97.9 F 98.4 F Pulse Rate 75 74 72 Respiratory Rate 13 23 H Blood Pressure 83/50 L 93/48 L 103/49 L Pulse Oximetry 96 91 L 92 Oxygen Delivery Method Room Air Nasal Cannula Oxymask Oxygen Flow Rate 1 1 06/18/24 18:43 06/18/24 18:45 06/18/24 18:59 Temperature 97.7 F Pulse Rate 72 74 Respiratory Rate 18 30 H Blood Pressure 101/48 L 101/48 L 117/62 Pulse Oximetry 94 95 Oxygen Delivery Method Oxymask Oxymask Oxygen Flow Rate 2 06/18/24 19:15 06/18/24 19:30 06/18/24 19:45 Temperature 98.3 F 98.1 F 98.3 F Pulse Rate 75 68 74 Respiratory Rate 30 H 31 H 30 H Blood Pressure 106/58 L 100/51 L 91/43 L Pulse Oximetry 96 96 96 Oxygen Delivery Method Oxymask Oxymask Oxymask Oxygen Flow Rate 2 2 2 BMI result Body Mass Index 54.7 Course Course Course Narrative: RME: 59 yolld female with abdominal hernia presents to ED for abdominal pain. Patient usually follows up [facility] was informed by [facility] surgeon and art therapist she also is on Depacon sores before having surgical procedure for hernia. Patient on exam has protruding abdominal hernia that is tender on palpation. Labs lactic acid ordered. Patient informed to not leave likely she will need CT scan imaging with IV contrast. Reevaluation(s) Reevaluation #1: Patient is meeting criteria for septic shock with lactic acidosis with possible incarcerated hernia the case was discussed with Dr. Powell who will come down to see the patient. Patient received prophylactic levofloxacin and is receiving 4.613 cc of normal saline to meet the septic shock protocol. Signed out to Dr. Pemberton. Time: 16:39 Reevaluation #2: I assumed care at 5pm IVF ordered as patient is obese IBW is 131lbs which is 59kg so 30cc/kg would be 2L of IVF Reevaluation #3: Dr. Powell aware added on IV flagyl, repeat IV pain meds and compazine. He wants an US of the gallbladder at this time I ordered another liter of LR, total 3L then will switch to levophed if she is still hypotensive, communicated this with RN Dr. Powell aware of her pressures Additional Reevaluation(s): pending US will either consult ICU or attempt transfer after US and increasing lactic acid I am concerned about need for possible higher level of care - Dr. Serna from ICU would recommend discussion with [facility] gen surg, our surgery team felt that if surgery was needed she would have to go back to [facility]. Dr. Mcmullen does not feel after review of CT scan no acute surgery needs would treat medically. [facility] Dr. Peralta to admit Medications Administered Generic Name Dose Route Start Last Admin Trade Name Freq PRN Reason Stop Dose Admin Lactated Ringer's 1,000 mls @ 100 mls/hr 06/18/24 20:00 06/18/24 20:02 Lr IVCONT 100 mls/hr .Q10H SYDNEE Administration Discontinued Medications Generic Name Dose Route Start Last Admin Trade Name Freq PRN Reason Stop Dose Admin Hydromorphone HCl 2 mg 06/18/24 15:59 06/18/24 16:08 Hydromorphone Hcl 2 Mg/Ml Vial IVPUSH 06/18/24 16:00 2 mg ONCE ONE Administration Protocol Hydromorphone HCl 1 mg 06/18/24 17:34 06/18/24 17:42 Hydromorphone Hcl 1 Mg/Ml Syringe IVPUSH 06/18/24 17:35 1 mg ONCE ONE Administration Protocol Sodium Chloride 1,000 mls @ 999 mls/hr 06/18/24 15:11 06/18/24 18:57 Ns IV 06/18/24 16:11 Infused .Q1H1M ONE Infusion Levofloxacin 500 mg in 100 mls @ 100 mls/hr 06/18/24 16:00 06/18/24 18:00 Levaquin IV 06/18/24 16:59 Infused ONCE ONE Infusion Levofloxacin 250 mg in 50 mls @ 50 mls/hr 06/18/24 16:00 06/18/24 18:00 Levaquin IV 06/18/24 16:59 Infused ONCE ONE Infusion Sodium Chloride 1,000 mls @ 999 mls/hr 06/18/24 16:51 06/18/24 18:57 Ns IV 06/18/24 17:51 Infused .Q1H1M ONE Infusion Metronidazole 500 mg in 100 mls @ 100 mls/hr 06/18/24 17:08 06/18/24 18:30 Flagyl IV 06/18/24 18:07 Infused ONCE ONE Infusion Lactated Ringer's 1,000 mls @ 999 mls/hr 06/18/24 18:03 06/18/24 19:16 Lr IV 06/18/24 19:03 Infused .Q1H1M ONE Infusion Iohexol 100 ml 06/18/24 15:47 06/18/24 15:48 Iohexol 350 Mg/Ml 100 Ml Infus..Btl IV 06/18/24 15:48 100 ml ONCE ONE Administration Ondansetron HCl 4 mg 06/18/24 15:59 06/18/24 16:08 Ondansetron Hcl 4 Mg/2 Ml Vial IVPUSH 06/18/24 16:00 4 mg ONCE ONE Administration Prochlorperazine Edisylate 10 mg 06/18/24 17:07 06/18/24 17:13 Prochlorperazine Edisylate 10 Mg/2 Ml Vial IVPUSH 06/18/24 17:08 10 mg ONCE ONE Administration Medical Decision Making Differential Diagnosis Differential Diagnoses: The differential diagnosis associated with the presentation includes ( incarcerated hernia, colitis, diverticulitis, acute appendicitis, acute cholecystitis, sepsis, UTI, electrolyte derangement, severe anemia.) Admission/Observation Consideration of admission/observation: Escalation of care including admission/observation considered Consult Healthcare Provider Management of the patient was discussed with: Internal Grinder Set Up Operator ( Dr. Powell) Lab Data MDM Lab Attestation statement: I reviewed the patient's lab results. 06/18/24 18:45 06/18/24 14:20 Labs: Lab Results 06/18/24 06/18/24 06/18/24 Range/Units 14:20 15:26 16:36 WBC 17.9 H (4.8-10.8) X10*3/uL RBC 4.19 L (4.20-5.50) X10*6/uL Hgb 8.6 L (12.0-16.0) g/dl Hct 28.1 L (37.0-47.0) % MCV 67.1 L (80.0-98.0) fL MCH 20.5 L (27.0-33.0) pg MCHC 30.6 L (31.0-35.0) g/dl RDW 22.6 H (11.0-16.0) % Plt Count 363 D (160-400) X10*3/uL MPV 11.0 (9.4-12.3) fL Immature Gran % (Auto) Cancelled Neut % (Auto) Cancelled Lymph % (Auto) Cancelled [place] % (Auto) Cancelled Eos % (Auto) Cancelled Baso % (Auto) Cancelled Lymph # (Auto) Cancelled [place] # (Auto) Cancelled Eos # (Auto) Cancelled Baso # (Auto) Cancelled Abs Immat Gran (auto) Cancelled Absolute Neuts (auto) Cancelled Absolute Nucleated RBC 0.050 H (0.0-0.012) X10*3/uL Nucleated RBC % (auto) 0.3 H (0.0-0.2) /100WBC Neutrophils % (Manual) 76 H (45-73) % Band Neutrophils % 9 H (3-5) % Lymphocytes % (Manual) 4 L (20-40) % Monocytes % (Manual) 3 (2-11) % Eosinophils % (Manual) 1 (0-4) % Metamyelocytes % 5 % Myelocytes % 2 % Abs Neuts (Manual) 15.2 H (2.0-8.3) X10*3/uL Lymphocytes # (Manual) 0.7 L (1.2-4.9) X10*3/uL Monocytes # (Manual) 0.5 (0.1-1.2) X10*3/uL Eosinophils # (Manual) 0.2 (0.0-0.4) X10*3/uL Metamyelocytes # 0.9 X10*3/uL Myelocytes # 0.4 X10*/uL Nucleated RBCs 2 H (0-0) /100WBC Platelet Estimate NORMAL (NORMAL) Plt Morphology Comment NORMAL RBC Morphology NOTED Polychromasia 1+ (0-2) /OIF Hypochromasia 1+ (5-14) /OIF Microcytosis 1+ (5-14) /OIF Smear Tech's Comments MANUAL DIFF PT 16.7 H (10.9-12.4) SEC INR 1.4 H (0.9-1.1) APTT 27.7 (26.0-36.8) SEC Sodium 136 (135-145) mmol/L Potassium 4.9 D (3.3-5.1) mmol/L Chloride 102 (96-108) mmol/L Carbon Dioxide 22 (22-29) mmol/L Anion Gap 17 (12-20) BUN 22 H (9-16) mg/dL Creatinine 0.78 (0.5-1.4) mg/dL Estim Creat Clear Calc 116.0 Estimated GFR > 60 Random Glucose 124 H (60-115) mg/dL Lactic Acid 4.8 H* 4.4 H* (0.5-2.0) mmol/L Lactic Acid F/U @ 2Hr (0.5-2.0) mmol/L Calcium 8.5 D (8.4-10.2) mg/dL Total Bilirubin 3.5 H (0.0-1.0) mg/dL AST 209 H (5-31) U/L ALT 109 H (0-31) U/L Alkaline Phosphatase 347 H (39-117) U/L Total Protein 6.9 (6.5-8.0) g/dL Albumin 2.9 L (3.5-5.0) g/dL Lipase 19 (8-78) U/L Blood Type B Positive Antibody Screen NEGATIVE 06/18/24 Range/Units 18:45 WBC 18.0 H (4.8-10.8) X10*3/uL RBC 3.86 L (4.20-5.50) X10*6/uL Hgb 8.1 L (12.0-16.0) g/dl Hct 26.4 L (37.0-47.0) % MCV 68.4 L (80.0-98.0) fL MCH 21.0 L (27.0-33.0) pg MCHC 30.7 L (31.0-35.0) g/dl RDW 22.7 H (11.0-16.0) % Plt Count 389 (160-400) X10*3/uL MPV 11.2 (9.4-12.3) fL Immature Gran % (Auto) 3.3 H Neut % (Auto) 73.7 H Lymph % (Auto) 8.6 L [place] % (Auto) 13.5 H Eos % (Auto) 0.3 Baso % (Auto) 0.6 Lymph # (Auto) 1.6 [place] # (Auto) 2.4 H Eos # (Auto) 0.1 Baso # (Auto) 0.1 Abs Immat Gran (auto) 0.60 H Absolute Neuts (auto) 13.3 H Absolute Nucleated RBC 0.070 H (0.0-0.012) X10*3/uL Nucleated RBC % (auto) 0.4 H (0.0-0.2) /100WBC Neutrophils % (Manual) (45-73) % Band Neutrophils % (3-5) % Lymphocytes % (Manual) (20-40) % Monocytes % (Manual) (2-11) % Eosinophils % (Manual) (0-4) % Metamyelocytes % % Myelocytes % % Abs Neuts (Manual) (2.0-8.3) X10*3/uL Lymphocytes # (Manual) (1.2-4.9) X10*3/uL Monocytes # (Manual) (0.1-1.2) X10*3/uL Eosinophils # (Manual) (0.0-0.4) X10*3/uL Metamyelocytes # X10*3/uL Myelocytes # X10*/uL Nucleated RBCs (0-0) /100WBC Platelet Estimate (NORMAL) Plt Morphology Comment RBC Morphology Polychromasia /OIF Hypochromasia /OIF Microcytosis /OIF Smear Tech's Comments PT (10.9-12.4) SEC INR (0.9-1.1) APTT (26.0-36.8) SEC Sodium (135-145) mmol/L Potassium (3.3-5.1) mmol/L Chloride (96-108) mmol/L Carbon Dioxide (22-29) mmol/L Anion Gap (12-20) BUN (9-16) mg/dL Creatinine (0.5-1.4) mg/dL Estim Creat Clear Calc Estimated GFR Random Glucose (60-115) mg/dL Lactic Acid (0.5-2.0) mmol/L Lactic Acid F/U @ 2Hr 5.6 H* (0.5-2.0) mmol/L Calcium (8.4-10.2) mg/dL Total Bilirubin (0.0-1.0) mg/dL AST (5-31) U/L ALT (0-31) U/L Alkaline Phosphatase (39-117) U/L Total Protein (6.5-8.0) g/dL Albumin (3.5-5.0) g/dL Lipase (8-78) U/L Blood Type Antibody Screen Independent Interpretation I performed an independent interpretation of an: CT Scan ( abdomen and pelvis:1. Multiple abdominopelvic bowel containing hernias as described above. The abdominal wall hernia contains thickened small bowel loops with surrounding fluid, which would be consistent with incarceration. There is no evidence of associated bowel obstruction. 2. Small amount of) Radiology Impression Discussion of test interpretation with radiology: I have reviewed the radiologist's reading. Critical Care Time Critical Care Time Critical Care Time: Yes Total Critical Care Time: 90 Attestation: repeat consults, transfer consult, IV dilaudid with improvement in pain, 3L of IVF, repeat labs I attest to this time spent taking care of the patient Discharge Plan Discharge Clinical Impression: Abdominal pain, Acidosis, lactic, Elevated WBC count, Intractable nausea and vomiting Patient Disposition: Admitted As Inpatient Prescriptions: No Action ibuprofen 800 mg tablet 800 mg PO TID PRN (Reason: for pain) Qty: 90 0RF metformin 500 mg tablet 1 tab PO BID pantoprazole 20 mg tablet,delayed release (DR/EC) 1 tab PO DAILY lidocaine 5 % adhesive patch,medicated 1 patch topical DAILY Rx Instructions: both feet and knees levothyroxine 200 mcg tablet 400 mcg PO DAILY Flovent HFA 220 mcg/actuation HFA aerosol inhaler 1 puff inhalation BID oxycodone-acetaminophen 7.5-325 mg tablet 1 tab PO QID PRN (Reason: Pain, Moderate) zolpidem 10 mg tablet 1 tab PO BEDTIME PRN (Reason: Sleep) paroxetine HCl 40 mg tablet 1 tab PO DAILY cholecalciferol (vitamin D3) 25 mcg (1,000 unit) capsule 1 cap PO DAILY multivitamin with folic acid [Daily-Loida (with folic acid)] 400 mcg tablet 1 tab PO DAILY amlodipine 2.5 mg Tablet 2.5 mg PO DAILY Qty: 14 0RF Protocol: Hold for SBP< HOLD for SBP < : 90 oxycodone-acetaminophen 5-325 mg tablet 1 tab PO Q6H PRN (Reason: pain) Qty: 25 0RF Rx Instructions: Partial Fill upon patient request. diclofenac sodium 1 % gel 2 g topical BID hydrocortisone 1 % cream with perineal applicator topical DAILY ondansetron HCl 4 mg tablet 4 mg PO TID PRN (Reason: nausea) fluticasone propionate 50 mcg/actuation spray,suspension 2 spray intranasal DAILY epinephrine 0.3 mg/0.3 mL auto-injector IM losartan 25 mg tablet 25 mg PO DAILY naloxone [Narcan] 4 mg/actuation spray,non-aerosol 0 spray intranasal clindamycin HCl 300 mg capsule 600 mg PO Q8H gabapentin 300 mg capsule 300 mg PO DAILY PRN (Reason: pain) tizanidine 2 mg tablet 2 mg PO Q12H PRN (Reason: pain) acetic acid 2 % solution otic (ear) left celecoxib 100 mg capsule 100 mg PO DAILY metformin 1,000 mg tablet 1,000 mg PO albuterol sulfate [ProAir HFA] 90 mcg/actuation HFA aerosol inhaler 2 puff inhalation Q4-6H PRN amitriptyline 10 mg tablet 10 mg PO BEDTIME bupropion HCl 150 mg tablet extended release 24 hr 150 mg PO QAM docusate sodium 100 mg capsule 100 mg PO BID Print Language: Panamanian
[2024-06-18 14:28] LABS: Hematocrit 28.1 % (37.0-47.0); Hemoglobin 8.6 g/dl (12.0-16.0); Mean Corpuscular HGB Conc 30.6 g/dl (31.0-35.0); Mean Corpuscular Hemoglobin 20.5 pg (27.0-33.0); Mean Corpuscular Volume 67.1 fL (80.0-98.0); NRBC Pct Auto 0.3 /100WBC (0.0-0.2); Platelet Count 363 X10*3/uL (160-400); Red Blood Count 4.19 X10*6/uL (4.20-5.50); Red Cell Distribution Width 22.6 % (11.0-16.0); White Blood Count 17.9 X10*3/uL (4.8-10.8)
[2024-06-18 14:32] LABS: INTERNATIONAL NORM RATIO 1.4 (0.9-1.1); Prothrombin Time 16.7 SEC (10.9-12.4)
[2024-06-18 14:35] LABS: Partial Thromboplastin Time 27.7 SEC (26.0-36.8)
[2024-06-18 14:41] LABS: Alanine Aminotransferase 109 U/L (0-31); Albumin Level 2.9 g/dL (3.5-5.0); Alkaline Phosphatase 347 U/L (39-117); Anion Gap 17 (12-20); Aspartate Amino Transferase 209 U/L (5-31); Bilirubin Total 3.5 mg/dL (0.0-1.0); Blood Urea Nitrogen 22 mg/dL (9-16); Calcium 8.5 mg/dL (8.4-10.2); Carbon Dioxide 22 mmol/L (22-29); Chloride 102 mmol/L (96-108); Estimated Glomerular Filt Rate > 60; Glucose Random 124 mg/dL (60-115); Lipase 19 U/L (8-78); Potassium 4.9 mmol/L (3.3-5.1); Sodium 136 mmol/L (135-145); Total Protein 6.9 g/dL (6.5-8.0)
[2024-06-18 14:45] LABS: Lactic Acid 4.8 mmol/L (0.5-2.0)
[2024-06-18 14:47] LABS: SLIDE REVIEW MANUAL DIFF
[2024-06-18 14:58] LABS: Band Neutrophils Percent 9 % (3-5); Eosinophils Absolute Manual 0.2 X10*3/uL (0.0-0.4); Eosinophils Percent Manual 1 % (0-4); Lymphocytes Absolute Manual 0.7 X10*3/uL (1.2-4.9); Lymphocytes Percent Manual 4 % (20-40); Metamyelocytes Absolute 0.9 X10*3/uL; Metamyelocytes Percent 5 %; Monocytes Absolute Manual 0.5 X10*3/uL (0.1-1.2); Monocytes Percent Manual 3 % (2-11); Myelocytes Absolute 0.4 X10*/uL; Myelocytes Percent 2 %; Neutrophils Absolute Manual 15.2 X10*3/uL (2.0-8.3); Neutrophils Percent Manual 76 % (45-73)
[2024-06-18 15:01] LABS: Hypochromasia 1+ (5-14) /OIF; Microcytosis 1+ (5-14) /OIF; Nucleated Red Blood Cells 2 /100WBC (0-0); Polychromasia 1+ (0-2) /OIF; RBC Morphology NOTED
[2024-06-18 15:02] LABS: Platelet Estimate NORMAL (NORMAL); Platelet Morphology Comment NORMAL
--- OUTSIDE RECORDS SUMMARY | 2024-06-18 15:10 | XMS_ITS | Encounter Summary ---
Author Organization [employer] Address [address] [place] [address] [address] Care Team Providers Care Behavior Analyst Name Role Phone Name, Osei AGUSTIN Primary Care Provider [phone] Kirit Galarza Unavailable Unavailable Reason for Visit * Reason Comments Med Refill Encounter Details Date Type Department Care Team (Late st Contact Info) Description 08/31/2023 Refill [facility] [address] [place], [place] [id number] Name, MD Osei [address] [place], [place] [phone] Osteoarthritis of knee, unspecified laterality, unspecified osteoarthritis type Social History Tobacco Use Types Packs/Day Years Used Date Smoking Tobacco: Never Smokeless Tobacco: Never Alcohol Use Standard Drinks/Week Comments Never 0 (1 standard drink = 0.6 oz pur e alcohol) Depression Answer Date Recorded Patient Health Questionnaire-9 Score 11 05/03/2023 Patient Health Questionnaire-9 Score 11 05/03/2023 Last PHQ-9: Questionnaire Data Not on file 1 07/04/2022 Housing Stability Answer Date Recorded What is your housing situation today? I have anat wilson 03/03/[address] you li ve. Do you have problems with any of the following? None of the above 03/03/2023 Food Insecurity Answer Date Recorded Within the past 12 months, y ou worried that your food would run out before you got money to buy more: Never True 03/03/2023 Within the past 12 months,th e food you bought just didn't last and you didn't have enough money to get more: Never True Transportation Answer Date Recorded In the past 12 months, has l ack of transportation kept you from medical appts, meetings, work or from getting things needed for daily living? No 03/03/2023 Utilities Answer Date Recorded In the past 12 months, has t he electric, gas, oil or water company threatened to shut off services in your home? No 03/03/2023 Depression Answer Date Recorded Patient Health Questionnaire-2 Score 4 05/03/2023 Comments Unknown Sex and Gender Information Value Date Recorded Sex Assigned at Female 03/16/2022 10:14 AM EDT Legal Sex Female 10:14 AM EDT Gender Identity Female 03/16/2022 10:14 AM EDT Sexual Orientation Straight 03/16/2022 10 :14 AM EDT documented as of this encounter Plan of Treatment Upcoming Encounters Date Type Department Care Team (Late st Contact Info) Description 07/05/2024 2:30 PM EST Office Visit [address] [address] Name, MD Osei [address] [place] [id number] 07/14/2024 11:00 AM EST Telemedicine [address] [address] Lisa Tyson, GEETHA documented as of this encounter Visit Diagnoses Diagnosis Osteoarthritis of knee, unspecified laterality, unspecified osteoarthritis type documented in this encounter Additional Health Concerns Assessment Noted Time PHQ-9 Depression Total Score: 11 023 3:34 PM EST documented as of this encounter Care Teams Behavior Analyst Relationship Specialty Start Date End Date Name, MD Osei [address] [place] [id number] PCP - General Family Medicine 10/04/15 Kirit Galarza FNP [address] [place] [address] Nurse Practitioner Family Medicine 04/20/23 documented as of this encounter
--- OUTSIDE RECORDS SUMMARY | 2024-06-18 15:10 | XMS_ITS | Encounter Summary ---
Author Organization [employer] Address [address] [place] [address] [address] [address] Care Team Providers Care Painter And Grader Cork Name Role Phone Name, Osei AGUSTIN Primary Care Provider [phone] Kirit Galarza Unavailable Unavailable Reason for Visit * Reason Comments Med Refill Encounter Details Date Type Department Care Team (Late st Contact Info) Description 10/05/2023 Refill [facility] [address] [place], [place] [phone] Name, MD Osei [address] [place] [address] Osteoarthritis of knee, unspecified laterality, unspecified osteoarthritis type Social History Tobacco Use Types Packs/Day Years Used Date Smoking Tobacco: Never Smokeless Tobacco: Never Alcohol Use Standard Drinks/Week Comments Never 0 (1 standard drink = 0.6 oz pur e alcohol) Depression Answer Date Recorded Patient Health Questionnaire-9 Score 10 09/07/2023 Patient Health Questionnaire-9 Score 10 09/07/2023 Last PHQ-9: Questionnaire Data Not on file 0 09/07/2023 Housing Stability Answer Date Recorded What is [...] Date Recorded Patient Health Questionnaire-2 Score 4 09/07/2023 Comments Unknown Sex and Gender Information Value [...] Description 07/05/2024 2:30 PM EST Office Visit [address] [address] NameOsei MD [address] [place] [id number] 07/14/2024 11:00 AM EST Telemedicine [address] [address] Lisa Tyson, GEETHA documented as of this encounter Visit Diagnoses Diagnosis Osteoarthritis of knee, unspecified laterality, unspecified osteoarthritis type documented in this encounter Additional Health Concerns Assessment Noted Time PHQ-9 Depression Total Score: 10 024 10:54 AM EDT documented as of this encounter Care Teams Painter And Grader Cork Relationship Specialty Start Date End Date NameOsei MD [address] [place] [id number] PCP - General Family Medicine 10/04/15 Kirit Galarza FNP [address] [place] [id number] Nurse Practitioner Family Medicine 04/20/23 documented as of this encounter
--- OUTSIDE RECORDS SUMMARY | 2024-06-18 15:10 | XMS_ITS | Encounter Summary ---
Author Organization [facility] Address [facility] [place] [address] Care Team Providers Care Endoscopy Specialty Technician Name Role Phone Name, Osei AGUSTIN Primary Care Provider Unavailabl e Maylin Lim DO Primary Care Pro vider Unavailable Name, Osei AGUSTIN Primary Care Provider Unavailabl e Reason for Visit * Reason Onset Date Comments refill request 08/20/2011 Encounter Details Date Type Department Care Team Description 08/20/2011 Refill Adult Medicine [address] [address] Name, MD Osei refill request Social History Tobacco Use Types Packs/Day Years Used Date Smoking Tobacco: Never Alcohol Use Standard Drinks/Week Comments No 0 (1 standard drink = 0.6 oz pur e alcohol) Sex Assigned at Date Recorded Not on file documented as of this encounter Miscellaneous Notes * Telephone Encounter - Maria Del Rosario Barksdale M.A. - 08/20/2011 3:37 PM EDT Pt not due til tomorrow will have to call back then * Telephone Encounter - Shelby Mason - 08/20/2011 2:08 PM EDT WHEN WAS THE PATIENT'S LAST APPOINTMENT IN ADULT MEDICINE?07/26 WHEN WAS THE LAST TIME THE PATIENT SAW THEIR PCP? 212 Does patient have an upcoming appointment? Yes 10/22/11 (THE MEDICATION REQUESTED IS ON THE MED LIST ABOVE) All of the medications requested were on the CURRENT MEDS list Did you check the Pharmacy information above?: YES Is this a mail order prescription request? NO Indicate how soon the patient needs the script: BY THE END OF THE DAY Patient would like script to be: FAXED TO PHARMACY If the patients Provider is not in tell the patient that the covering provider will get the request. Patients current insurance carrier is: [facility] F[facility] Plan: FFS HMO $0 [employer] [id number] Product Type: MEDICAID RISK documented in this encounter Plan of Treatment Not on file documented as of this encounter Visit Diagnoses Not on filedocumented in this encounter Care Teams Endoscopy Specialty Technician Relationship Specialty Start Date End Date Name, MD Osei PCP - General 09/08/1997 06/06/15 Maylin Lim DO PCP - General Internal Medicine 06/07/15 10/23/15 Osei Fernández MD PCP - General Internal Medicine 10/24/15 documented as of this encounter
--- OUTSIDE RECORDS SUMMARY | 2024-06-18 15:10 | XMS_ITS | Encounter Summary ---
Author Organization [employer] Address [address] [place] [address] [address] Care Team Providers Care Sales And Marketing Coordinator Name Role Phone Name, Osei AGUSTIN Primary Care Provider [phone] Kirit Galarza Unavailable Unavailable Reason for Visit * Reason Comments Med Refill Encounter Details Date Type Department Care Team (Late st Contact Info) Description 07/29/2023 Refill [facility] [address] [place], [place] [phone] Name, MD Osei [address] [place], [place] [phone] Osteoarthritis of knee, unspecified laterality, unspecified osteoarthritis [...] Description 07/05/2024 2:30 PM EST Office Visit [address] [address] Name, MD Osei [address] [place] [address] 07/14/2024 11:00 AM EST Telemedicine [address] [address] Lisa Tyson, GEETHA documented as of this encounter Visit Diagnoses Diagnosis Osteoarthritis of knee, unspecified laterality, unspecified osteoarthritis type documented in this encounter Additional Health Concerns Assessment Noted Time PHQ-9 Depression Total Score: 11 023 3:34 PM EST documented as of this encounter Care Teams Sales And Marketing Coordinator Relationship Specialty Start Date End Date Name, MD Osei [address] [place] [phone] PCP - General Family Medicine 10/04/15 Kirit Galarza FNP [address] [place] [address] Nurse Practitioner Family Medicine 04/20/23 documented as of this encounter
--- OUTSIDE RECORDS SUMMARY | 2024-06-18 15:10 | XMS_ITS | Clinical Summary ---
Author Organization [facility] Address [address] [address] Care Team Providers Care It Risk And Assurance Manager Name Role Phone Unavailable Primary Care Provider Unavailabl e Social History Tobacco Use Types Packs/Day Years Used Date Smoking Tobacco: Never Assessed Comments Unknown Sex and Gender Information Value Date Recorded Sex Assigned at Not on file Legal Sex Female 10:27 AM EDT Gender Identity Not on file Sexual Orientation Not on file Plan of Treatment Health Maintenance Due Date Last Done Comments Breast Cancer Screening 1965 Colorectal Cancer Screening: Annual FOBT 02/23/2012 Colorectal Cancer Screening: Colonoscopy 02/23/2012 Colorectal Cancer Screening: Sigmoidoscopy 02/23/2012 Influenza Vaccine (#1) 2024 Hepatitis B Vaccine Aged Out No longe r eligible based on patient's age to complete this topic Pneumococcal Vaccine: Pediat rics (0 to 5 Years) and At-Risk Patients (6 to 64 Years) Aged Out No longer eligible b ased on patient's age to complete this topic Insurance [place] [id number] [place]
--- OUTSIDE RECORDS SUMMARY | 2024-06-18 15:10 | XMS_ITS | Encounter Summary ---
Author Organization [employer] Address [address] [place] [address] 7[place] [address] Care Team Providers Care Streetcar Motorman Name Role Phone Name, Osei AGUSTIN Primary Care Provider [phone] Kirit Galarza Unavailable Unavailable Reason for Visit * Reason Comments Med Refill Encounter Details Date Type Department Care Team (Late st Contact Info) Description 06/12/2024 Refill [facility] [address] [place], [place] [phone] Name, MD Osei [address] [place] [address] Osteoarthritis of knee, unspecified laterality, unspecified osteoarthritis type; MDD (major depressive disorder), recurrent episode, moderate (CMS/HCC) Social History Tobacco Use Types Packs/Day Years Used Date Smoking Tobacco: Never Smokeless Tobacco: Never Alcohol Use Standard Drinks/Week Comments Never 0 (1 standard drink = 0.6 oz pur e alcohol) Depression Answer Date Recorded Patient Health Questionnaire-9 Score 9 11/30/2023 Patient Health Questionnaire-9 Score 9 11/30/2023 Last PHQ-9: Questionnaire Data Not on file 0 11/30/2023 Housing Stability Answer Date Recorded What is your housing situation today? I have anat wilson 12/20/[address] you li ve. Do you have problems with any of the following? None of the above 12/20/2023 Food Insecurity Answer Date Recorded Within the past 12 months, y ou worried that your food would run out before you got money to buy more: Never True 12/20/2023 Within the past 12 months,th e food you bought just didn't last and you didn't have enough money to get more: Never True 09/2023 Transportation Answer Date Recorded In the past 12 months, has l ack of transportation kept you from medical appts, meetings, work or from getting things needed for daily living? No 12/20/2023 Utilities Answer Date Recorded In the past 12 months, has t he electric, gas, oil or water company threatened to shut off services in your home? No 12/20/2023 Depression Answer Date Recorded Patient Health Questionnaire-2 Score 4 11/30/2023 Internet Access Answer Date Recorded Internet Access Q1 Yes 01/14/2024 Internet Access Q2 Not on file 01/14/2024 Comments Unknown Sex and Gender Information Value [...] Description 07/05/2024 2:30 PM EST Office Visit [facility] [address] [place] [phone] Name, MD Osei [address] [place] [address] 07/14/2024 11:00 AM EST Telemedicine [address] [address] Lisa Tyson, RN documented as of this encounter Visit Diagnoses Diagnosis Osteoarthritis of knee, unspecified laterality, unspecified osteoarthritis type MDD (major depressive disorder), recurrent episode, moderate (CMS/HCC) documented in this encounter Additional Health Concerns Assessment Noted Time PHQ-9 Depression Total Score: 9 11/30/19 24 10:02 AM EDT documented as of this encounter Care Teams Streetcar Motorman Relationship Specialty Start Date End Date Name, MD Osei [address] [place] [phone] PCP - General Family Medicine 10/04/15 Kirit Galarza FNP [address] [place] [address] Nurse Practitioner Family Medicine 04/20/23 documented as of this encounter
--- OUTSIDE RECORDS SUMMARY | 2024-06-18 15:10 | XMS_ITS | Encounter Summary ---
Author Organization [employer] Address [address] [place] [address] Care Team Providers Care File Drawer Finisher Name Role Phone Name, Osei AGUSTIN Primary Care Provider [phone] Kirit Galarza Unavailable Unavailable Reason for Visit * Reason Onset Date Comments Med Refill 06/13/2024 Encounter Details Date Type Department Care Team ([facility] st Contact Info) Description 06/13/2024 Telephone [facility] [address] [place], [place] [phone] Name, MD Osei [address] [place], [place] [phone] Med Refill Social History Tobacco Use Types Packs/Day Years [...] AM EDT documented as of this encounter Miscellaneous Notes * Telephone Encounter - Karen Coughlin LPN - 06/13/2024 8:42 AM EST Duplicate request. * Telephone Encounter - Rajan Morgan - 06/13/2024 8:30 AM EST TC from pt requesting medication refill. Medications needing refill : zolpidem (Ambien) 10 MG tablet To be sent to: [facility] - [place], [place] - [address] [place] [address] documented in this encounter Plan of Treatment Upcoming Encounters Date Type Department Care Team (Late st Contact Info) Description 07/05/2024 2:30 PM EST Office Visit [facility] [address] [place] [address] Name, MD Osei [address] [place] [address] 07/14/2024 11:00 AM EST Telemedicine [facility] [address] [place] [address] Lisa Tyson RN documented as of this encounter Visit Diagnoses Not on filedocumented in this encounter Additional Health Concerns Assessment Noted Time PHQ-9 Depression Total Score: 9 11/30/19 24 10:02 AM EDT documented as of this encounter Care Teams File Drawer Finisher Relationship Specialty Start Date End Date Name, MD Osei [address] [place] [address] PCP - General Family Medicine 10/04/15 Kirit Galarza FNP [address] [place] [address] Nurse Practitioner Family Medicine 04/20/23 documented as of this encounter
--- OUTSIDE RECORDS SUMMARY | 2024-06-18 15:10 | XMS_ITS | Encounter Summary ---
Author Organization [employer] Address [address] [facility] [address], [place] [address] Care Team Providers Care Geospatial Technologist Name Role Phone Name, Osei AGUSTIN Primary Care Provider [phone] Kirit Galarza Unavailable Unavailable Encounter Details Date Type Department Care Team (Late st Contact Info) Description 06/18/2024 Orders Only GENERIC EXTERNAL DATA DEPARTMENT Provider, Generic External Data Social History Tobacco Use Types Packs/Day Years [...] Description 07/05/2024 2:30 PM EST Office Visit [facility] [address] [place] [address] Name, MD Osei [address] [place] [address] 07/14/2024 11:00 AM EST Telemedicine [address] [address] Lisa Tyson RN documented as of this encounter Procedures Procedure Name Priority Date/Time Associated Diagnosis Comments SLIDE REVIEW Routine 06/18/2024 2:20 PM EST COMPLETE BLOOD COUNT MAN DIF Routine 06/18/2024 2:20 PM EST CBC WITH AUTO DIFFERENTIAL Routine 06/18/2024 2:20 PM EST APTT Routine 06/18/2024 2:20 PM EST PROTHROMBIN TIME-INR Routine 06/18/2024 2:20 PM EST LIPASE Routine 06/18/2024 2:20 PM EST LACTIC ACID Routine 06/18/2024 2:20 PM EST COMPREHENSIVE METABOLIC PANEL Routine 06/18/2024 2:20 PM EST documented in this encounter Results * Slide Review (06/18/2024 2:20 PM EST) Slide Review MANUAL DIFF [facility] 06/18/2024 2:20 PM EST 06/18/2024 2:24 PM EST us Generic External Data Provider LAB BLOOD ORDERAB LES Final Result [facility] [address] [place] [address] [phone] * (ABNORMAL) Complete Blood Count Manual Diff (06/18/2024 2:20 PM EST) White Blood Count 17.9(H) 4.8 - 10.8 X10*3/uL [facility] Red Blood Count 4.19(L) 4.20 - 5.50 X10*6/uL [facility] Hemoglobin 8.6(L) 12.0 - 16.0 g/dl [facility] Hematocrit 28.1(L) 37.0 - 47.0 % [facility] Mean Corpuscular Volume 67.1(L) 80.0 - 98.0 fL [facility] Mean Corpuscular Hemoglobin 20.5(L) 27.0 - 33.0 pg [facility] Mean Corpuscular HGB Conc 30.6(L) 31.0 - 35.0 g/dl [facility] Red Cell Distribution Width 22.6(H) 11.0 - 16.0 % [facility] Platelet Count 363 160 - 400 X10*3/uL [facility] Mean Platelet Volume 11.0 9.4 - 12.3 fL [facility] NRBC Pct Auto 0.3(H) 0.0 - 0.2 /100WBC [facility] NRBC Abs Auto 0.050(H) 0.0 - 0.012 X10*3/uL [facility] Neutrophils % Manual 76(H) 45 - 73 % [facility] Band Neutrophils Percent 9(H) 3 - 5 % [facility] Lymphocytes Percent Manual 4(L) 20 - 40 % [facility] Monocytes Percent Manual 3 2 - 11 % [facility] EOSINOPHILS % MANUAL 1 0 - 4 % [facility] Metamyelocytes % (Manual) 5 % [facility] Myelocytes 2 % [facility] NEUTROPHILS ABSOLUTE MANUAL 15.2(H) 2.0 - 8.3 X10*3/uL [facility] LYMPHOCYTES ABSOLUTE MANUAL 0.7(L) 1.2 - 4.9 X10*3/uL [facility] MONOCYTES ABSOLUTE MANUAL 0.5 0.1 - 1.2 X10*3/uL [facility] EOSINOPHILS ABSOLUTE MANUAL 0.2 0.0 - 0.4 X10*3/uL [facility] Absolute Metamyelocytes 0.9 X10*3/uL [facility] Absolute Myelocytes 0.4 X10*/uL [facility] Nucleated RBC's 2(H) 0 - 0 /100WBC [facility] Platelet Estimate [facility] Platelet Morphology Comment NORMAL [facility] RBC Morphology NOTED [facility] POLYCHROMASIA 1+ (0-2) /OIF [facility] Hypochromasia 1+ (5-14) /F [facility] Microcytosis 1+ (5-14) /[facility] 06/18/2024 2:20 PM EST 06/18/2024 2:24 PM EST us Generic External Data Provider LAB BLOOD ORDERAB LES Final Result [facility] [address] [place] [address] [phone] * (ABNORMAL) Lactic Acid (06/18/2024 2:20 PM EST) Lactic Acid 4.8(HH) 0.5 - 2.0 mmol/L [facility] Comment:Critical value for L ACTIC: Results called to and read wayne: JONELLE Person calling: FABI Date: 06/18/24 Time: 1442 06/18/2024 2:20 PM EST 06/18/2024 2:24 PM EST us Generic External Data Provider LAB BLOOD ORDERAB LES Final Result Performing Organization Address City/[facility]/ZIP Co de Phone Number [facility] [address] [place] [phone] * Lipase (06/18/2024 2:20 PM EST) Lipase 19 8 - 78 U/L [facility] 06/18/2024 2:20 PM EST 06/18/2024 2:24 PM EST Generic External Data Provider LAB BLOOD ORDERAB LES Final Result Performing Organization Address [facility] de Phone Number [facility] [address] [place] [phone] * (ABNORMAL) Comprehensive Metabolic Panel (06/18/2024 2:20 PM EST) Sodium 136 135 - 145 mmol/L [facility] Potassium 4.9 3.3 - 5.1 mmol/L [facility] Chloride 102 96 - 108 mmol/L [facility] Carbon Dioxide 22 22 - 29 mmol/L [facility] Anion Gap 17 12 - 20 [facility] Urea Nitrogen (BUN) 22(H) 9 - 16 mg/dL [facility] Creatinine, Serum 0.78 0.5 - 1.4 mg/dL [facility] Creatinine Clr Calc Pharmacy 116.0 [facility] Comment:Provided height and weight: 167.64 cm,153.768 kg.eGFR (calculated from the MDRD study equation) and eCrCl(calculated from the Cockcroft-Gault equation) are based ondifferent parameters and may not yield comparable results.If eCrCl result is absurd, please check patient'sheight/weight. Estimated Glomerular Filt Rate >60 [facility] Comment:Chronic Kidney Disea se: Estimated GFR < 60 mL/min/1.71x3Wffbds Kidney Disease: Estimated GFR < 15 mL/min/1.73m2 Glucose 124(H) 60 - 115 mg/dL [facility] Calcium 8.5 8.4 - 10.2 mg/dL [facility] Bilirubin, Total 3.5(H) 0.0 - 1.0 mg/dL [facility] Comment:Slight Icterus. Aspartate Amino Transferase 209(H) 5 - 31 U/L [facility] Alanine Aminotransferase 109(H) 0 - 31 U/L [facility] Total Protein 6.9 6.5 - 8.0 g/dL [facility] Albumin Level 2.9(L) 3.5 - 5.0 g/dL [facility] Alkaline Phosphatase 347(H) 39 - 117 U/L [facility] 06/18/2024 2:20 PM EST 06/18/2024 2:24 PM EST Generic External Data Provider LAB BLOOD ORDERAB LES Final Result Performing Organization Address City/[facility] Co de Phone Number [facility] [address] [place] [phone] * Partial Thromboplastin Time, Activated (APTT) (06/18/2024 2:20 PM EST) Partial Thromboplastin Time 27.7 26.0 - 36.8 SEC [facility] Comment:For information rega rding the monitoring of direct thrombininhibitors, please refer to Pharmacy. 06/18/2024 2:20 PM EST 06/18/2024 2:24 PM EST us Generic External Data Provider LAB BLOOD ORDERAB LES Final Result Performing Organization Address [facility] Co de Phone Number [facility] [address] [place] [phone] * (ABNORMAL) Prothrombin Time-INR (06/18/2024 2:20 PM EST) Prothrombin Time 16.7(H) 10.9 - 12.4 SEC [facility] INTERNATIONAL NORM RATIO 1.4(H) 0.9 - 1.1 [facility] Comment:INTERNATIONAL NORMAL IZED RATIO (INR) REFERENCE RANGES Reference RangeFor patients not on anticoagulant therapy: 0.9 - 1.1INR ranges for oral anticoagulanttherapy:For prevention and treatment of venous thrombosis and pulmonary embolism: 2.0 - 3.0For acute myocardial infarction with aspirin therapy: 2.0 - 3.0For acute myocardial infarction without aspirin therapy: 3.0 - 4.0For patients with mechanical prosthetic heart valves: 2.5 - 3.5 06/18/2024 2:20 PM EST 06/18/2024 2:24 PM EST us Generic External Data Provider LAB BLOOD ORDERAB LES Final Result [facility] [address] [place], [place] [phone] * (ABNORMAL) CBC auto differential (06/18/2024 2:20 PM EST) White Blood Count 17.9(H) 4.8 - 10.8 X10*3/uL [facility] Red Blood Count 4.19(L) 4.20 - 5.50 X10*6/uL [facility] Hemoglobin 8.6(L) 12.0 - 16.0 g/dl [facility] Hematocrit 28.1(L) 37.0 - 47.0 % [facility] Mean Corpuscular Volume 67.1(L) 80.0 - 98.0 fL [facility] Mean Corpuscular Hemoglobin 20.5(L) 27.0 - 33.0 pg [facility] Mean Corpuscular HGB Conc 30.6(L) 31.0 - 35.0 g/dl [facility] Red Cell Distribution Width 22.6(H) 11.0 - 16.0 % [facility] Platelet Count 363 160 - 400 X10*3/uL [facility] Mean Platelet Volume 11.0 9.4 - 12.3 fL [facility] Neutrophils Percent Auto 76.1(H) 45 - 73 % [facility] Imm Gran Pct Auto 1.8(H) 0.0 - 0.4 % [facility] Lymphocytes Percent Auto 9.0(L) 20 - 40 % [facility] Monocytes Percent Auto 12.5(H) 2 - 11 % [facility] Eosinophils Percent Auto 0.3 0 - 4 % [facility] Basophils Percent Auto 0.3 0 - 2 % [facility] NRBC Pct Auto 0.3(H) 0.0 - 0.2 /100WBC [facility] Neutrophils Absolute Auto 13.7(H) 2.0 - 8.3 x10*3/uL [facility] Imm Gran Abs Auto 0.33(H) 0.00 - 0.03 X10*3/uL [facility] Lymphocytes Absolute Auto 1.6 1.2 - 4.9 X10*3/uL [facility] Monocytes Absolute Auto 2.2(H) 0.1 - 1.2 X10*3/uL [facility] Eosinophils Absolute Auto 0.1 0.0 - 0.4 X10*3/uL [facility] Basophils Absolute Auto 0.1 0.0 - 0.2 X10*3/uL [facility] NRBC Abs Auto 0.050(H) 0.0 - 0.012 X10*3/uL [facility] 06/18/2024 2:20 PM EST 06/18/2024 2:24 PM EST us Generic External Data Provider LAB BLOOD ORDERAB LES Edited Result - Final [facility] [address] [place] [address] [phone] documented in this encounter Visit Diagnoses Not on filedocumented in this encounter Additional Health Concerns Assessment Noted Time PHQ-9 Depression Total Score: 9 11/30/19 24 10:02 AM EDT documented as of this encounter Care Teams Geospatial Technologist Relationship Specialty Start Date End Date Name, MD Osei [address] [place] [address] PCP - General Family Medicine 10/04/15 Kirit Galarza FNP [address] [place] [address] Nurse Practitioner Family Medicine 04/20/23 documented as of this encounter
--- OUTSIDE RECORDS SUMMARY | 2024-06-18 15:10 | XMS_ITS | Encounter Summary ---
Author Organization [facility] Address [facility] [place] [address] Care Team Providers Care Resist Coater Developer Name Role Phone Maylin Lim DO Primary Care Pro vider Unavailable Name, Osei AGUSTIN Primary Care Provider Unavailabl e Reason for Visit * Reason Onset Date Comments lab test 07/23/2015 Encounter Details Date Type Department Care Team Description 07/23/2015 Telephone Adult Medicine [address] [address] Maylin Lim DO lab test Social History Tobacco Use Types Packs/Day Years Used Date Smoking Tobacco: Never Smokeless Tobacco: Never Alcohol Use Standard Drinks/Week Comments No 0 (1 standard drink = 0.6 oz pur e alcohol) Sex Assigned at Date Recorded Not on file documented as of this encounter Miscellaneous Notes * Telephone Encounter - Estefania Lane M.A. - 07/24/2015 4:37 PM EST Component Value Date URINEOXYCOD POSITIVE 07/24/2015 URBENZO NEGATIVE 07/24/2015 URAMPHETAMIN NEGATIVE 07/24/2015 URMARIJUANA NEGATIVE 07/24/2015 UROPIATES NEGATIVE 07/24/2015 URBARBITUATE NEGATIVE 07/24/2015 URCOCAINE NEGATIVE 07/24/2015 METHADONE NONE DETECTED 11/15/2009 HYDROCODONE Negative 01/13/2015 * Telephone Encounter - Alexandra Teresa M.A. - 07/23/2015 11:33 AM EST Pt made aware she needs to report to the lab within 24 hours for uds documented in this encounter Plan of Treatment Not on file documented as of this encounter Results * ASSAY, DIHYDROCODEINONE (07/24/2015 9:37 AM EST) HYDROCODONE UR GCMS Negative . ng/mL 07/28/2015 11:32 AM EDT [facility] HYDROMORPHONE UR GCMS Negative . ng/mL 07/28/2015 11:32 AM EDT [facility] Comment: Performed at: ??[facility] [address] ??[id number] Cigarette Vendor: Rito Beltran MD, Phone: ??[phone] 07/24/2015 9:37 AM EST 07/24/2015 9:37 AM EST [employer] DO LAB Performing Organization Address City/[facility]/ZIP Co de Phone Number [facility] * (ABNORMAL) OXYCODONE, URINE (07/24/2015 9:37 AM EST) URINE OXYCODONE LEVEL POSITIVE( A) NEGATIVE 07/24/2015 11:28 AM EST [facility] Comment: Semi-quantitative urine assay for screening purposes only. Unconfirmed screening results should not be used for non-medical purposes. ALTERNATE METHOD CONFIRMATION DONE UPON REQUEST ONLY 07/24/2015 9:37 AM EST 07/24/2015 9:37 AM EST [employer] DO LAB Performing Organization Address City/[facility]/ZIP Co de Phone Number [address] * DRUG OF ABUSE SCREEN (07/24/2015 9:37 AM EST) AMPHETAMINE, URINE NEGATIVE NEGATIVE 07/24/2015 11:10 AM EST [facility] BARBITURATES, URINE NEGATIVE NEGATIVE 07/24/2015 11:10 AM EST [facility] BENZODIAZEPINE , URINE NEGATIVE NEGATIVE 07/24/2015 11:10 AM EST [facility] COCAINE, URINE NEGATIVE NEGATIVE 07/24/2015 11:10 AM EST [facility] OPIATES, URINE NEGATIVE NEGATIVE 07/24/2015 11:10 AM EST [facility] MARIJUANA(THC) , URINE NEGATIVE NEGATIVE 07/24/2015 11:10 AM EST [facility] 07/24/2015 9:37 AM EST 07/24/2015 9:37 AM EST Maylin Vasquez DO LAB Performing Organization Address City/State/[facility] Co de Phone Number [facility] [address] [facility] documented in this encounter Visit Diagnoses Diagnosis Encounter for long-term (current) use of other high-risk medications- Primary Encounter for long-term (current) use of other medications documented in this encounter Care Teams Resist Coater Developer Relationship Specialty Start Date End Date Maylin Lim DO PCP - General Internal Medicine 06/07/15 10/23/15 Osei Fernández MD PCP - General Internal Medicine 10/24/15 documented as of this encounter
--- OUTSIDE RECORDS SUMMARY | 2024-06-18 15:10 | XMS_ITS | Encounter Summary ---
Author Organization [facility] Address [facility] [place] [address] Care Team Providers Care Email Marketing Intern Name Role Phone Name, Osei AGUSTIN Primary Care Provider Unavailabl e Maylin Lim DO Primary Care Pro vider Unavailable Name, Osei AGUSTIN Primary Care Provider Unavailabl e Reason for Visit * Reason Onset Date Comments medication problems 10/03/2012 Imitrex Encounter Details Date Type Department Care Team Description 10/03/2012 Telephone Adult Medicine [address] [address] Name, MD Osei medication problems (Imitrex) Social History Tobacco Use Types Packs/Day Years Used Date Smoking Tobacco: Never Smokeless Tobacco: Never Alcohol Use Standard Drinks/Week Comments No 0 (1 standard drink = 0.6 oz pur e alcohol) Sex Assigned at Date Recorded Not on file documented as of this encounter Miscellaneous Notes * Telephone Encounter - Shahrzad Richardson - 10/03/2012 8:54 AM EDT Who is calling? A pharmacist: Pharmacy: [facility] Pharmacist Name: [facility] Phone # [phone] Name of the medication IMITREX What is the specific problem or interaction? CLARIFY DIRECTIONS, WHAT IS THE INITIAL DOSE? If the patient is having a problem with taking the med - how long has the problem been going on? N/A documented in this encounter Plan of Treatment Not on file documented as of this encounter Visit Diagnoses Not on filedocumented in this encounter Care Teams Email Marketing Intern Relationship Specialty Start Date End Date Name, MD Osei PCP - General 09/08/1997 06/06/15 Maylin Lim DO PCP - General Internal Medicine 06/07/15 10/23/15 Name, MD Osei PCP - General Internal Medicine 10/24/15 documented as of this encounter
--- OUTSIDE RECORDS SUMMARY | 2024-06-18 15:10 | XMS_ITS | Encounter Summary ---
Author Organization [facility] Address [address] [facility] [place] [address] Care Team Providers Care Radiology Interventional Physician Name Role Phone NameOsei MD Primary Care Provider Unavailabl e Maylin Lim DO Primary Care Pro vider Unavailable NameOsei MD Primary Care Provider Unavailabl e Encounter Details Date Type Department Care Team Description 10/14/2010 Controlled Substance Contract with Plan Medical Records [address] [place] [address] Abstract, Provider Social History Tobacco Use Types Packs/Day Years Used Date Smoking Tobacco: Never Alcohol Use Standard Drinks/Week Comments No 0 (1 standard drink = 0.6 oz pur e alcohol) Sex Assigned at Date Recorded Not on file documented as of this encounter Plan of Treatment Not on file documented as of this encounter Visit Diagnoses Not on filedocumented in this encounter Care Teams Radiology Interventional Physician Relationship Specialty Start Date End Date Osei Fernández MD PCP - General 09/08/1997 06/06/15 Maylin Lim DO PCP - General Internal Medicine 06/07/15 10/23/15 Osei Fernández MD PCP - General Internal Medicine 10/24/15 documented as of this encounter
--- OUTSIDE RECORDS SUMMARY | 2024-06-18 15:10 | XMS_ITS | Encounter Summary ---
Author Organization [employer] [facility] Address [address] [place] [address] Care Team Providers Care Model Photographers' Name Role Phone Name, Osei AGUSTIN Primary Care Provider [phone] Kirit Galarza Unavailable Unavailable Reason for Visit * Reason Comments Med Refill Encounter Details Date Type Department Care Team (Late st Contact Info) Description 04/26/2022 Refill [facility] [address] [place] [address] [phone] NameOsei MD [address] [place] [address] [phone] Social History Tobacco Use Types Packs/Day Years [...] Description 07/05/2024 2:30 PM EST Office Visit [facility] [address] [place] [address] [phone] Osei Fernández MD [address] [place] [address] [phone] 07/14/2024 11:00 AM EST Telemedicine [facility] [address] [place] [address] [phone] Lisa Tyson RN documented as of this encounter Visit Diagnoses Not on filedocumented in this encounter Care Teams Model Photographers' Relationship Specialty Start Date End Date Osei Fernández MD [address] [place] [address] PCP - General Family Medicine 10/04/15 Kirit Galarza FNP [address] [place] [address] Nurse Practitioner Family Medicine 04/20/23 documented as of this encounter
--- OUTSIDE RECORDS SUMMARY | 2024-06-18 15:10 | XMS_ITS | Encounter Summary ---
Author Organization [employer] Address [address] [facility] [address] [address] Care Team Providers Care Blade Grinder Name Role Phone Name, Osei AGUSTIN Primary Care Provider [phone] Kirit Galarza Unavailable Unavailable Reason for Visit * Reason Comments Med Refill Encounter Details Date Type Department Care Team (Late st Contact Info) Description 01/19/2024 Refill [facility] [address] [place], [place] [phone] Name, MD Osei [address] [place] [address] Osteoarthritis of knee, unspecified laterality, unspecified osteoarthritis [...] Description 07/05/2024 2:30 PM EST Office Visit [address] [address] Name, MD Osei [address] [place] [address] 07/14/2024 11:00 AM EST Telemedicine [address] [address] Lisa Tyson, GEETHA documented as of this encounter Visit Diagnoses Diagnosis Osteoarthritis of knee, unspecified laterality, unspecified osteoarthritis type documented in this encounter Additional Health Concerns Assessment Noted Time PHQ-9 Depression Total Score: 9 11/30/19 24 10:02 AM EDT documented as of this encounter Care Teams Blade Grinder Relationship Specialty Start Date End Date Osei Fernández MD [address] [place] [address] PCP - General Family Medicine 10/04/15 Kirit Galarza FNP [address] [place] [address] Nurse Practitioner Family Medicine 04/20/23 documented as of this encounter
--- OUTSIDE RECORDS SUMMARY | 2024-06-18 15:10 | XMS_ITS | Encounter Summary ---
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
--- OUTSIDE RECORDS SUMMARY | 2024-06-18 15:10 | XMS_ITS | Encounter Summary ---
Author Organization [employer] Address [address] [place] [address] [place], [place] [address] Care Team Providers Care Psych Social Worker Name Role Phone Name, Osei AGUSTIN Primary Care Provider [phone] Kirit Galarza Unavailable Unavailable Reason for Visit * Reason Comments Med Refill Encounter Details Date Type Department Care Team (Late st Contact Info) Description 05/11/2024 Refill [facility] [address] [place], [place] [phone] Name, MD Osei [address] [place] [address] Osteoarthritis of knee, unspecified laterality, unspecified osteoarthritis [...] Description 07/05/2024 2:30 PM EST Office Visit [address] [address] Name, MD Osei [address] [place] [address] 07/14/2024 11:00 AM EST Telemedicine [address] [address] Lisa Tyson, GEETHA documented as of this encounter Visit Diagnoses Diagnosis Osteoarthritis of knee, unspecified laterality, unspecified osteoarthritis type documented in this encounter Additional Health Concerns Assessment Noted Time PHQ-9 Depression Total Score: 9 11/30/19 24 10:02 AM EDT documented as of this encounter Care Teams Psych Social Worker Relationship Specialty Start Date End Date Osei Fernández MD [address] [place] [phone] PCP - General Family Medicine 10/04/15 Kirit Galarza FNP [address] [place] [address] Nurse Practitioner Family Medicine 04/20/23 documented as of this encounter
--- OUTSIDE RECORDS SUMMARY | 2024-06-18 15:10 | XMS_ITS | Encounter Summary ---
Author Organization [employer] Address [address] [place] [address] Care Team Providers Care Photocopying Equipment Repairer Name Role Phone Name, Osei AGUSTIN Primary Care Provider [phone] Kirit Galarza Unavailable Unavailable Reason for Visit * Reason Onset Date Comments Results 04/17/2024 Encounter Details Date Type Department Care Team ([facility] st Contact Info) Description 04/17/2024 Telephone [facility] [address] [place], [place] [phone] Name, MD Osei [address] [place] [address] Results Social History Tobacco Use Types Packs/Day Years [...] encounter Miscellaneous Notes * Telephone Encounter - Leelee Katz - 04/17/2024 12:38 PM EST Tc from pt requesting a callback on regards her results of UTI. Callback number [phone] documented in this encounter Plan of Treatment Upcoming Encounters Date Type Department Care Team (Late st Contact Info) Description 07/05/2024 2:30 PM EST Office Visit [address] [address] Name, MD Osei [address] [place] [phone] 07/14/2024 11:00 AM EST Telemedicine [address] [address] Lisa Tyson, GEETHA documented as of this encounter Visit Diagnoses Not on filedocumented in this encounter Additional Health Concerns Assessment Noted Time PHQ-9 Depression Total Score: 9 11/30/19 24 10:02 AM EDT documented as of this encounter Care Teams Photocopying Equipment Repairer Relationship Specialty Start Date End Date NameOsei MD [address] [place] [address] PCP - General Family Medicine 10/04/15 Kirit Galarza FNP [address] [place] [address] Nurse Practitioner Family Medicine 04/20/23 documented as of this encounter
--- OUTSIDE RECORDS SUMMARY | 2024-06-18 15:10 | XMS_ITS | Encounter Summary ---
Author Organization [facility] Address [address] [place] [address] Care Team Providers Care Biometrics Head Name Role Phone Name, Osei AGUSTIN Primary Care Provider [phone] Kirit Galarza Unavailable Unavailable Reason for Visit * Reason Comments Med Refill Encounter Details Date Type Department Care Team (Late st Contact Info) Description 10/01/2022 Refill [facility] [address] [place] [address] [phone] Name, MD Osei [address] [place] [address] [phone] Osteoarthritis of knee, unspecified laterality, unspecified osteoarthritis type Social History Tobacco Use Types Packs/Day Years Used Date Smoking Tobacco: Never Smokeless Tobacco: Never Comments Unknown Sex and Gender Information Value Date Recorded Sex Assigned at Female 03/16/2022 10:14 AM EDT Legal Sex Female 10:14 AM EDT Gender Identity Female 03/16/2022 10:14 AM EDT Sexual Orientation Straight 03/16/2022 10 :14 AM EDT COVID-19 Exposure Response Date Recorded In the last 10 days, have yo u been in contact with someone who was confirmed or suspected to have Coronavirus/COVID-19? No / Unsure 09/09/2022 9:40 AM EDT documented as of this encounter Plan of Treatment Upcoming Encounters Date Type Department Care Team (Late st Contact Info) Description 07/05/2024 2:30 PM EST Office Visit [facility] [address] [place] [address] Name, MD Osei [address] [place] [address] [phone] 07/14/2024 11:00 AM EST Telemedicine [facility] [address] [place] [address] Lisa Tyson, GEETHA documented as of this encounter Visit Diagnoses Diagnosis Osteoarthritis of knee, unspecified laterality, unspecified osteoarthritis type documented in this encounter Additional Health Concerns Assessment Noted Time PHQ-9 Depression Total Score: 4 08/25/19 23 12:55 PM EDT documented as of this encounter Care Teams Biometrics Head Relationship Specialty Start Date End Date Name, MD Osei [address] [place] [address] PCP - General Family Medicine 10/04/15 Kirit Galarza FNP [address] [place] [address] Nurse Practitioner Family Medicine 04/20/23 documented as of this encounter
--- OUTSIDE RECORDS SUMMARY | 2024-06-18 15:10 | XMS_ITS | Encounter Summary ---
Author Organization [employer] Address [address] [place] [address] [place], [place] [address] Care Team Providers Care Medical Language Specialist Name Role Phone Name, Osei AGUSTIN Primary Care Provider [phone] Kirit Galarza Unavailable Unavailable Reason for Visit * Reason Comments Med Refill Encounter Details Date Type Department Care Team (Late st Contact Info) Description 06/04/2023 Refill [facility] [address] [place], [place] [phone] Nicolle Smith FNP [address] [place] [address] Osteoarthritis of knee, unspecified laterality, unspecified osteoarthritis [...] Description 07/05/2024 2:30 PM EST Office Visit [address] [address] Name, MD Osei [address] [place] [address] 07/14/2024 11:00 AM EST Telemedicine [address] [address] Lisa Tyson, GEETHA documented as of this encounter Visit Diagnoses Diagnosis Osteoarthritis of knee, unspecified laterality, unspecified osteoarthritis type documented in this encounter Additional Health Concerns Assessment Noted Time PHQ-9 Depression Total Score: 11 023 3:34 PM EST documented as of this encounter Care Teams Medical Language Specialist Relationship Specialty Start Date End Date NameOsei MD [address] [place] [address] PCP - General Family Medicine 10/04/15 Kirit Galarza FNP [address] [place] [address] Nurse Practitioner Family Medicine 04/20/23 documented as of this encounter
--- OUTSIDE RECORDS SUMMARY | 2024-06-18 15:10 | XMS_ITS | Encounter Summary ---
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
--- OUTSIDE RECORDS SUMMARY | 2024-06-18 15:10 | XMS_ITS | Clinical Summary ---
Author Organization [employer] Address [address] [place] [address] [address] [place] [address] Care Team Providers Care Naval Architect Specialist Name Role Phone Name, Osei AGUSTIN Primary Care Provider [phone] Kirit Galarza Unavailable Unavailable Allergies Active Allergy Reactions Criticality Noted Date Comments Bee Pollen Anaphylaxis High 02/17/2023 Bee Venom Swelling,Hives 09/20/2013 Cortisone Rash,Itching Low 03/26/2008 Penicillins Dermatitis,Itching,R a sh Low 02/26/2006 amoxicillin Wound Dressing Adhesive 12/09/2018 Other reaction(s): Contact Dermatitis Medications naloxone (Narcan) 4 mg/0.1 mL nasal spray spray 0.1 milliliter by intranasal route in 1 nostril may repeat dose every 2-3 minutes as needed alternating nostrils with each dose 022 Active fluticasone (Flovent) 220 MCG/ACT inhaler Inhale 1 puff every 12 (twelve) hours. Rinse mouth after using. 016 Active TRUEplus Lancets [facility]G [facility] TEST BLOOD SUGAR TWICE DAILY 100 each 5 023 Active EPINEPHrine (Epipen) 0.3 MG/0.3ML injection syringe INJECT INTRAMUSCULARLY DIRECTED ON PACKAGE AND GO TO EMERGENCY ROOM 2 each 1 023 Active Readi-Cat 2 2 % suspension TAKE DIRECTED 023 Active Blood Pressure kit Use once a day 1 kit 023 Active acetaminophen (Tylenol) 500 MG tablet Take 2 tablets (1,000 mg) by mouth every 8 (eight) hours if needed for moderate pain or fever for up to 25 doses. 50 tablet 024 Active empagliflozin-me tFORMIN ER (Synjardy XR) 12.5-1000 MG 24 hr tablet Take 1 tablet by mouth with breakfast. 30 tablet 11 024 2024 Active docusate sodium (Colace) 100 MG capsuleIndicatio ns:Constipation, unspecified constipation type TAKE 1 CAPSULE BY MOUTH EVERY TWELVE HOURS 180 capsule 1 Active fluticasone (Flonase) 50 MCG/ACT nasal sprayIndications :Nasal congestion INSTILL 1-2 SPRAYS IN EACH NOSTRIL ONCE DAILY NEEDED FOR CONGESTION / FOR ALLERGIES 48 g Active pantoprazole (ProtoNix) 20 MG EC tabletIndication s:Gastroesophage al reflux disease, unspecified whether esophagitis present TAKE 1 TABLET BY MOUTH EVERY DAY 90 tablet 1 Active amitriptyline (Elavil) 10 MG tabletIndication s:MDD (major depressive disorder), recurrent episode, moderate ([facility]) Take 2 tablets (20 mg) by mouth at bedtime. 180 tablet 3 Active sertraline (Zoloft) 100 MG tablet Take 1.5 tablets (150 mg) by mouth Once per day. 135 tablet 3 Active Ventolin HFA 108 (90 Base) MCG/ACT inhalerIndicatio ns:Asthma, unspecified asthma severity, unspecified whether complicated, unspecified whether persistent INHALE 2 PUFFS BY MOUTH EVERY 4 TO 6 HOURS NEEDED 18 g 2 Active losartan (Cozaar) 50 MG tablet Take 1 tablet (50 mg) by mouth Once per day. 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 30 tablet 11 024 2024 Active clotrimazole-bet amethasone (Lotrisone) cream APPLY TOPICALLY TO THE AFFECTED AREA(S) TWICE DAILY DIRECTED 45 g 1 Active Diclofenac Sodium 1 % gel APPLY 2 GRAMS TO AFFECTED AREA(S) TWICE DAILY 100 g 11 024 Active Multiple Vitamin (Multivitamin) tablet TAKE 1 TABLET BY MOUTH EVERY MORNING 90 tablet 3 024 Active lidocaine (Lidoderm) 5 % patchIndications :Other chronic pain APPLY 1 PATCH TOPICALLY TO SKIN, LEAVE ON FOR 12 HOURS AND OFF FOR 12 HOURS DIRECTED 30 patch Active Trulicity 0.75 MG/0.5ML solution auto-injector INJECT ONE PEN (=0.75MG) SUBCUTANEOUSLY ONCE A WEEK DIRECTED 2 mL 2 Active gabapentin (Neurontin) 400 MG capsule TAKE 1 CAPSULE BY MOUTH THREE TIMES DAILY 90 capsule 025 Active oxyCODONE-acetam inophen (Percocet) 7.5-325 MG tabletIndication s:Osteoarthritis of knee, unspecified laterality, unspecified osteoarthritis type TAKE 1 TABLET BY MOUTH EVERY 6 HOURS NEEDED FOR SEVERE PAIN 112 tablet 025 Active hydrOXYzine HCl (Atarax) 10 MG tabletIndication s:MDD (major depressive disorder), recurrent episode, moderate (CMS/HCC) Take 1-2 tablets (10-20 mg) by mouth every 6 (six) hours if needed for anxiety. 200 tablet 5 025 Active zolpidem (Ambien) 10 MG tabletIndication s:MDD (major depressive disorder), recurrent episode, moderate (CMS/HCC) TAKE 1 TABLET BY MOUTH EVERY DAY AT BEDTIME NEEDED FOR SLEEP 30 tablet 5 025 Active gabapentin (Neurontin) 400 MG capsule Take 1 capsule (400 mg) by mouth 3 times daily. 90 capsule 024 2024 Discontinued hydrOXYzine HCl (Atarax) 10 MG tabletIndication s:MDD (major depressive disorder), recurrent episode, moderate (CMS/HCC) Take 1-2 tablets (10-20 mg) by mouth every 6 (six) hours if needed for anxiety. 200 tablet 5 024 2024 Discontinued( Reorder (will not trigger notification to Pharmacy)) zolpidem (Ambien) 10 MG tabletIndication s:MDD (major depressive disorder), recurrent episode, moderate (CMS/HCC) TAKE 1 TABLET BY MOUTH EVERY DAY AT BEDTIME NEEDED FOR SLEEP 30 tablet 5 024 2024 Discontinued( Reorder (will not trigger notification to Pharmacy)) oxyCODONE-acetam inophen (Percocet) 7.5-325 MG tabletIndication s:Osteoarthritis of knee, unspecified laterality, unspecified osteoarthritis type TAKE 1 TABLET BY MOUTH EVERY 6 HOURS NEEDED FOR SEVERE PAIN 112 tablet 024 2024 Discontinued Active Problems Problem Noted Date Diagnosed Date Cubital tunnel syndrome on left 12/29/2023 Cubital tunnel syndrome on right 12/29/2023 Fracture of left ankle, lateral malleolus 2023 Trigger thumb, left thumb 12/29/2023 Carpal tunnel syndrome of right wrist 12/29/2023 Osteoarthritis of left knee 12/29/2023 S/P cubital tunnel release 12/29/2023 S/P carpal tunnel release 12/29/2023 Early dry stage nonexudative age-related macular degeneration of both eyes 12/17/2023 Overview (12/17/2023): Patient follows with [facility] Adrenal nodule 08/05/2023 Diabetes 08/05/2023 Incisional hernia 08/05/2023 SBO (small bowel obstruction) 08/05/2023 Carpal tunnel syndrome of left wrist 08/05/2023 Fracture, fibula closed, shaft 08/05/2023 HTN (hypertension) 08/05/2023 Osteoarthritis of right knee 08/05/2023 Closed fracture of shaft of left fibula with routine healing 06/02/2023 Colon cancer 12/09/2022 Elevated CEA 12/09/2022 History of thyroid irradiation 12/09/2022 Hypertensive disorder 12/09/2022 Morbid obesity with BMI of 50.0-59.9, adult 11/15 Ovarian mass 12/09/2022 Hx of papillary thyroid carcinoma 12/09/2022 MDD (major depressive disord er), recurrent episode, moderate 06/04/2022 Assessment & Plan (11/30/2023 10:41 AM EDT): No hallucination, no red flags for BPD. Significant situational stressors including serious health problems with multiple cancer diagnoses and treatments, chronic pain, limited mobility and ADLs. Very concerned about family members with serious health and behavioral problems. She also take Oxycodone per PCP. She has had partial response to medications, and no changes are made today, continue Sertraline 150 mg daily, Amitriptyline 20 mg at bedtime, Zolpidem 10 mg at bedtime prn and Hydroxyzine 10 mg 1-2 tablets at bedtime or for anxiety prn. She will F/U with therapist as usual and request referral to agency prescriber if possible. Since this provider will be retiring, we will also make referral to new [facility] psychiatric provider. Pt is aware that appts will be via [facility], and that provider will not be an employee of [facility]. She gives permission to share PHI. Any issues or concerns, contact the health center. All her questions were answered and I have wished her well. She agrees with the plan. Assessment & Plan (09/07/2023 12:42 PM EDT): No hallucination, no red flags for BPD. Significant situational stressors including serious health problems with multiple cancer diagnoses and treatments, chronic pain, limited mobility and ADLs. Very concerned about family members with serious health and behavioral problems. She also take Oxycodone per PCP. She will now increase to Sertraline 150 mg daily. Continue Amitriptyline 20 mg at bedtime, Zolpidem 10 mg at bedtime prn and Hydroxyzine 10 mg 1-2 tablets at bedtime or for anxiety prn. She has started with a new therapist. This provider will be retiring soon,but we will meet once more in 2 months. She agrees with the plan. Assessment & Plan (05/03/2023 4:28 PM EST): No hallucination, no red flags for BPD. Significant situational stressors including serious health problems with multiple cancer diagnoses and treatments, chronic pain, limited mobility and ADLs. She also take Oxycodone per PCP. Still not sleeping well r/t need to void frequently at night. Will F/u with PCP about this. No med changes at this time. Continue Amitriptyline 20 mg at bedtime, Sertraline 100 mg once daily, Zolpidem 10 mg at bedtime prn and Hydroxyzine 10 mg 1-2 at bedtime prn. Her therapist has left the area, but she plans to request transfer to a new one. Today 05/03/2023 provider informed the pt that I would be retiring in approx 1/2 year. Meanwhile, F/u with me in 2 months. She agrees with the plan. Assessment & Plan (03/11/2023 3:33 PM EDT): No hallucination, no red flags for BPD. Significant situational stressors including serious health problems with multiple cancer diagnoses and treatments, chronic pain, limited mobility and ADLs. She also take Oxycodone per PCP. Not sleeping well. Will increase to Amitriptyline 20 mg at bedtime. Continue Sertraline 100 mg once daily, Zolpidem 10 mg at bedtime prn and Hydroxyzine 10 mg 1-2 at bedtime prn. Continue with therapist and F/u with me in 2 months. She agrees with the plan. Assessment & Plan (10/27/2022 9:56 AM EDT): No hallucination, no red flags for BPD. Significant situational stressors including serious health problems with multiple cancer diagnoses and treatments, chronic pain, limited mobility and ADLs. Increasing family stressors. Has had some improvement in anxiety symptoms with addition of Sertraline 50 mg once daily. At ths time will increase to Sertraline 100 mg once daily, and discontinue Bupropion XL 150 mg daily. Continue Amitriptyline 10 mg at bedtime, Zolpidem 10 mg at bedtime prn and Hydroxyzine 10 mg 1-2 at bedtime prn. Continue with therapist and F/u with me in 2 months. She agrees with the plan. Assessment & Plan (08/24/2022 1:25 PM EDT): No hallucination, no red flags for BPD. Significant situational stressors including serious health problems with multiple cancer diagnoses and treatments, chronic pain, limited mobility and ADLs. Increasing family stressors. Pt c/o severe anxiety. Cannot take benzo as she is on COT. Bupropion has helped her depression but is not especially effective for anxiety. Being cognizant of risk of serotonin syndrome, will add Sertraline 50 mg once daily and decrease to Bupropion XL 150 mg daily, plan to cross-titrate and stop the Bupropion as tolerated. Would also then stop the Amitriptyline 10 mg. For now, continue other medications as usual, F/u with therapist, and with me in 1 month. She agrees with the plan. Assessment & Plan (07/07/2022 1:22 PM EST): No hallucination, no red flags for BPD. Significant situational stressors including serious health problems with multiple cancer diagnoses and treatments, chronic pain, limited mobility and ADLs. Increasing family stressors. Continue medications, F/u with therapist, and with me in 3-4 weeks. She agrees with the plan. Assessment & Plan (06/04/2022 3:17 PM EST): No hallucination, no red flags for BPD. Significant situational stressors including serious health problems with multiple cancer diagnoses and treatments, chronic pain, limited mobility and ADLs. Increasing family stressors. Not doing as well r/t concerns about her health and family stressors. Will increase to Wellbutrin XL 300 mg daily. Continue other meds as usual. She will call herself to F/U on counseling. Urged to seek care regarding unintended weight loss and abnormal bowel movements. F/U with me in 1 month. She agrees with the plan. 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 She has surveillance CTs and CEA and [facility] onc. Breast lump 06/01/2017 Shoulder pain 03/29/2017 Seasonal allergic rhinitis 10/04/2015 Osteoarthritis of knee 10/04/2015 Hypothyroid 10/04/2015 Chronic pain syndrome 10/04/2015 Hand arthritis 10/04/2015 GERD (gastroesophageal reflux disease) 5 Varicose veins 03/28/2014 Anxiety 06/08/2013 History of thyroidectomy 03/04/2010 Obstructive sleep apnea 04/13/2006 Asthma 04/13/2006 Morbid obesity 02/26/2006 Overview (08/05/2023): S/P gastric banding on 02/2007 Depressive disorder 02/26/2006 Resolved Problems Problem Noted Date Diagnosed Date Resolved Date Polyp of colon 07/26/2018 03/01/2024 Carpal tunnel syndrome 10/04/201511/11 Encounters Date Type Department Care Team Description 06/18/2024 Orders Only GENERIC EXTERNAL DATA DEPARTMENT Provider, Generic External Data 06/13/2024 Telephone [facility] [address] [place] [address] Osei Fernández MD Med Refill 06/13/2024 Telephone [facility] [address] [place] [address] Osei Fernández MD Med Refill 06/12/2024 Telephone [facility] [address] [place] [address] Osei Fernández MD Referral 06/12/2024 Refill [facility] [address] [place] [address] Osei Fernández MD Osteoarthritis of knee, unspecified laterality, unspecified osteoarthritis type; MDD (major depressive disorder), recurrent episode, moderate (CMS/HCC) 06/07/2024 Refill [facility] [address] [place] [address] Osei Fernández MD 05/16/2024 Refill [facility] [address] [place] [address] Osei Fernández MD 05/15/2024 Telephone [facility] [address] [place], [place] [phone] Osei Fernández MD 05/15/2024 Telephone [facility] MED[facility]INE [address] [place] [address] Osei Fernández MD Medication Question 05/15/2024 Refill [facility]INE [address] [place] [id number] Osei Fernández MD Other chronic pain; Osteoarthritis of knee, unspecified laterality, unspecified osteoarthritis type 05/11/2024 Refill [facility] [address] [place] [phone] Osei Fernández MD Osteoarthritis of knee, unspecified laterality, unspecified osteoarthritis type 05/04/2024 Telephone [facility] [address] [place] [address] Jackson Chowdhury 05/01/2024 Refill [facility] [address] [place] [phone] Osei Fernández MD 04/28/2024 1:30 PM EST Telemedicine [facility] [address] [place] [phone] Lisa Tyson, intern product marketing manager pain syndrome 04/28/2024 Travel 04/28/2024 Telephone [facility] [address] [place] [phone] Lisa Tyson, RN Recommend Tele LICENSING SERVICES CLERK Tier 2 04/17/2024 Refill [facility] [address] [place] [phone] Osei Fernández MD Osteoarthritis of knee, unspecified laterality, unspecified osteoarthritis type 04/17/2024 Telephone [facility] [address] [place] [address] Osei Fernández MD Nurse Triage 04/17/2024 Refill [facility] [address] [place] [address] Osei Fernández MD Osteoarthritis of knee, unspecified laterality, unspecified osteoarthritis type; Other chronic pain 04/17/2024 Telephone [facility] [address] [place] [phone] Osei Fernández MD Results 04/10/2024 3:40 PM EST Office Visit [facility] [address] [place] [address] Botas, Nicolle, CABLE TECHNICIAN UTI symptoms 03/31/2024 Refill [facility] [address], [place] [phone] Name, MD Osei 03/25/2024 Refill [facility] [address] [place] [address] Name, MD Osei Asthma, unspecified asthma severity, unspecified whether complicated, unspecified whether persistent 03/20/2024 Refill [facility] [address] [place] [address] Name, MD Osei Osteoarthritis of knee, unspecified laterality, unspecified osteoarthritis type from Last 3 Months Immunizations Name Administration Dates Next Due Influenza injectable quadriv alent IIV4 with preservative 02/28/2018,03/29/2017 Influenza injectable quadriv alent preservative free 03/19/2021,03/10/2019,04/27/2016 Influenza, IIV3, injectable 06/08/2013,1 05/23/2011,02/09/2007,02/26 Pneumococcal Conjugate PCV 13 12/07/2018 Pneumococcal Polysaccharide PPSV23 02/01/2019 TD (adult), 2 Lf tetanus tox oid, preservative free, adsorbed 04/13/2006 Tdap 03/08/2023,09/24/2010 Social History Tobacco Use Types Packs/Day Years Used Date Smoking Tobacco: Never Smokeless Tobacco: Never Tobacco Cessation:Counseling Given: Not Answered Alcohol Use Standard Drinks/Week Comments Never 0 (1 standard drink = 0.6 oz pur e alcohol) Depression Answer Date Recorded Patient Health Questionnaire-9 Score 9 11/30/2023 Patient Health Questionnaire-9 Score 9 11/30/2023 Last PHQ-9: Questionnaire Data Not on file 0 11/30/2023 Housing Stability Answer Date Recorded What is your housing situation today? I have anat steve 12/20/[address] you li [...] Orientation Straight 03/16/2022 10 :14 AM EDT Last Filed Vital Signs Vital Sign Reading Time Taken Comments Blood Pressure 154/69 04/10/2024 3:51 PM EST Pulse 69 04/10/2024 3:51 PM EST Temperature 36.8 ??C (98.2 ??F) 04/10/2024 3:51 PM ES T Respiratory Rate 19 04/10/2024 3:51 PM EST Oxygen Saturation 97% 04/10/2024 3:51 PM EST Inhaled Oxygen Concentration - - Weight 157 kg (347 lb) 04/10/2024 3:51 PM EST Height 167.6 cm (5' 6 ) 03/01/2024 3:33 PM EDT Body Mass Index 56.01 03/01/2024 3:33 PM EDT Plan of Treatment Upcoming Encounters Date Type Department Care Team (Late st Contact Info) Description 07/05/2024 2:30 PM EST Office Visit [facility] [address] [place] [phone] Name, MD Osei [address] [place] [phone] 07/14/2024 11:00 AM EST Telemedicine [address] [address] Lisa Tyson, RN Health Maintenance Due Date Last Done Comments CT Colonography 1963 Dental Oral Exam 1963 Dental Prophylaxis 1963 Dental X-Ray: Bitewings 1963 Dental X-Ray: Full Mouth 1963 FIT DNA/Cologuard 1963 FIT 1963 FOBT 1963 HIV Screening 1963 Sigmoidoscopy 1963 Diabetes: Urine Protein Screening 1982 Pap Smear 02/23/1984 Cervical Cancer Screening 1993 HPV/Cotest 1993 Zoster Vaccines (1 of 2) 2013 RSV Patients and Patients Aged 60 years or older (1 - Risk 60-74 years 1-dose series) 2023 Mammogram 04/17/2023 04/17/2021, 05/18, 06/14/2017, Additional history exists Colonoscopy 08/02/2023 08/01/2018 Colorectal Cancer Screening 08/02/2023 COVID-19 Vaccine (3 - season) 2024 11/26/2020, 11/05/2020 Influenza Vaccine (#1) 2024 , 03/10/2019, 02/28/2018, Additional history exists Pneumococcal Vaccine: 50+ Years (3 of 3 - PCV20 or PCV21) 02/02/2024 02/01/2019, 12/07/2018 Diabetes: Foot Exam 03/08/2024 03/08/2023, 03/08/2023, 03/08/2023, Additional history exists Lipid Panel 03/08/2024 03/08/2023, 12/16, 12/09/2020 Diabetes: Hemoglobin A1C 05/13/2024 024, 03/08/2023, 09/09/2022, Additional history exists Depression Monitoring (PHQ-9) 06/01/2024 11/30/2023, 11/30/2023 Alcohol/Substance Use Screening 11/11/2024 11/12/2023 Depression Screening 11/29/2024 11/30/2023, 11/30/19 24 SDOH Screening 12/19/2024 12/20/2023 Tobacco Screening 03/01/2025 03/01/2024 Eye Exam 12/14/2025 12/15/2023 DTaP/Tdap/Td Vaccines (3 - Td or Tdap) 03/08/2033 03/08/2023, 09/24/2010, 04/13/2006 Hepatitis C Screening Completed 06/01/2018 HIB Vaccines Aged Out No longer eligi ble based on patient's age to complete this topic HPV Vaccines Aged Out No longer eligi ble based on patient's age to complete this topic Hepatitis A Vaccines Aged Out No long er eligible based on patient's age to complete this topic Hepatitis B Vaccines Aged Out No long er eligible based on patient's age to complete this topic IPV Vaccines Aged Out No longer eligi ble based on patient's age to complete this topic Meningococcal Vaccine Aged Out No [place] se[place] eligible based on patient's age to complete this topic RSV under 20 months Aged Out No longe r eligible based on patient's age to complete this topic Rotavirus Vaccines Aged Out No longer eligible based on patient's age to complete this topic Procedures Procedure Name Priority Date/Time Associated Diagnosis Comments SLIDE REVIEW Routine 06/18/2024 2:20 PM EST COMPLETE BLOOD COUNT MAN DIF Routine 06/18/2024 2:20 PM EST LACTIC ACID Routine 06/18/2024 2:20 PM EST LIPASE Routine 06/18/2024 2:20 PM EST COMPREHENSIVE METABOLIC PANEL Routine 06/18/2024 2:20 PM EST APTT Routine 06/18/2024 2:20 PM EST PROTHROMBIN TIME-INR Routine 06/18/2024 2:20 PM EST CBC WITH AUTO DIFFERENTIAL Routine 06/18/2024 2:20 PM EST CULTURE, URINE, ROUTINE Routine 04/10/2024 6:15 PM EST UTI symptoms POCT URINALYSIS DIPSTICK Routine 04/10/2024 4:16 PM EST UTI symptoms HM DIABETES EYE EXAM Routine 12/15/2023 POCT GLYCATED HEMOGLOBIN, TOTAL Routine 11/12/2023 9:58 AM EDT 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) (CMS/HCC) Encounter for screening for malignant neoplasm of breast, unspecified screening modality Ventral hernia without obstruction or gangrene Hx of papillary thyroid carcinoma LIPID PANEL, STANDARD Routine 03/08/2023 10:12 AM EDT Diabetes mellitus type 2 in obese (CMS/HCC) Hypertension, unspecified type Osteoarthritis of knee, unspecified laterality, unspecified osteoarthritis type History of thyroid cancer Hypothyroidism, unspecified type Peripheral neuropathic pain BI MAMMOGRAM SCREENING BILATERAL Routine 04/17/2021 10:29 AM EST COLONOSCOPY Routine 08/01/2018 HEPATITIS C ANTIBODY Routine 06/01/2018 11:25 AM EST from Last 3 Months or Most Recently Relevant to Health Maintenance Results * Slide Review (06/18/2024 2:20 PM EST) Slide Review MANUAL DIFF [facility] 06/18/2024 2:20 PM EST 06/18/2024 2:24 PM EST us Generic External Data Provider LAB BLOOD ORDERAB LES Final Result [facility] [address] [place] [address] [phone] * (ABNORMAL) Complete Blood Count Manual Diff (06/18/2024 2:20 PM EST) White Blood Count 17.9(H) 4.8 - 10.8 X10*3/uL [facility] Red Blood Count 4.19(L) 4.20 - 5.50 X10*6/uL [facility] Hemoglobin 8.6(L) 12.0 - 16.0 g/dl [facility] Hematocrit 28.1(L) 37.0 - 47.0 % [facility] Mean Corpuscular Volume 67.1(L) 80.0 - 98.0 fL [facility] Mean Corpuscular Hemoglobin 20.5(L) 27.0 - 33.0 pg [facility] Mean Corpuscular HGB Conc 30.6(L) 31.0 - 35.0 g/dl [facility] Red Cell Distribution Width 22.6(H) 11.0 - 16.0 % [facility] Platelet Count 363 160 - 400 X10*3/uL [facility] Mean Platelet Volume 11.0 9.4 - 12.3 fL [facility] NRBC Pct Auto 0.3(H) 0.0 - 0.2 /100WBC [facility] NRBC Abs Auto 0.050(H) 0.0 - 0.012 X10*3/uL [facility] Neutrophils % Manual 76(H) 45 - 73 % [facility] Band Neutrophils Percent 9(H) 3 - 5 % [facility] Lymphocytes Percent Manual 4(L) 20 - 40 % [facility] Monocytes Percent Manual 3 2 - 11 % [facility] EOSINOPHILS % MANUAL 1 0 - 4 % [facility] Metamyelocytes % (Manual) 5 % [facility] Myelocytes 2 % [facility] NEUTROPHILS ABSOLUTE MANUAL 15.2(H) 2.0 - 8.3 X10*3/uL [facility] LYMPHOCYTES ABSOLUTE MANUAL 0.7(L) 1.2 - 4.9 X10*3/uL [facility] MONOCYTES ABSOLUTE MANUAL 0.5 0.1 - 1.2 X10*3/uL [facility] EOSINOPHILS ABSOLUTE MANUAL 0.2 0.0 - 0.4 X10*3/uL [facility] Absolute Metamyelocytes 0.9 X10*3/uL [facility] Absolute Myelocytes 0.4 X10*/uL [facility] Nucleated RBC's 2(H) 0 - 0 /[facility] Plate[facility] Estimate NORMAL NORMAL [facility] Platelet Morphology Comment NORMAL [facility] RBC Morphology NOTED [facility] POLYCHROMASIA 1+ (0-2) /OIF [facility] Hypochromasia 1+ (5-14) /OIF [facility] Microcytosis 1+ (5-14) /F [facility] 06/18/2024 2:20 PM EST 06/18/2024 2:24 PM EST us Generic External Data Provider LAB BLOOD ORDERAB LES Final Result [facility] [address], [place] [phone] * (ABNORMAL) CBC auto differential (06/18/2024 2:20 PM EST) White Blood Count 17.9(H) 4.8 - 10.8 X10*3/uL [facility] Red Blood Count 4.19(L) 4.20 - 5.50 X10*6/uL [facility] Hemoglobin 8.6(L) 12.0 - 16.0 g/dl [facility] Hematocrit 28.1(L) 37.0 - 47.0 % [facility] Mean Corpuscular Volume 67.1(L) 80.0 - 98.0 fL [facility] Mean Corpuscular Hemoglobin 20.5(L) 27.0 - 33.0 pg [facility] Mean Corpuscular HGB Conc 30.6(L) 31.0 - 35.0 g/dl [facility] Red Cell Distribution Width 22.6(H) 11.0 - 16.0 % [facility] Platelet Count 363 160 - 400 X10*3/uL [facility] Mean Platelet Volume 11.0 9.4 - 12.3 fL [facility] Neutrophils Percent Auto 76.1(H) 45 - 73 % [facility] Imm Gran Pct Auto 1.8(H) 0.0 - 0.4 % [facility] Lymphocytes Percent Auto 9.0(L) 20 - 40 % [facility] Monocytes Percent Auto 12.5(H) 2 - 11 % [facility] Eosinophils Percent Auto 0.3 0 - 4 % [facility] Basophils Percent Auto 0.3 0 - 2 % [facility] NRBC Pct Auto 0.3(H) 0.0 - 0.2 /100WBC [facility] Neutrophils Absolute Auto 13.7(H) 2.0 - 8.3 x10*3/uL [facility] Imm Gran Abs Auto 0.33(H) 0.00 - 0.03 X10*3/uL [facility] Lymphocytes Absolute Auto 1.6 1.2 - 4.9 X10*3/uL [facility] Monocytes Absolute Auto 2.2(H) 0.1 - 1.2 X10*3/uL [facility] Eosinophils Absolute Auto 0.1 0.0 - 0.4 X10*3/uL [facility] Basophils Absolute Auto 0.1 0.0 - 0.2 X10*3/uL [facility] NRBC Abs Auto 0.050(H) 0.0 - 0.012 X10*3/uL [facility] 06/18/2024 2:20 PM EST 06/18/2024 2:24 PM EST us Generic External Data Provider LAB BLOOD ORDERAB LES Edited Result - Final [facility] [address] [place] [phone] * Partial Thromboplastin Time, Activated (APTT) (06/18/2024 2:20 PM EST) Partial Thromboplastin Time 27.7 26.0 - 36.8 SEC [facility] Comment:For information rega rding the monitoring of direct thrombininhibitors, please refer to Pharmacy. 06/18/2024 2:20 PM EST 06/18/2024 2:24 PM EST Generic External Data Provider LAB BLOOD ORDERAB LES Final Result Performing Organization Address [facility] Co de Phone Number [facility] [address] [place] [phone] * (ABNORMAL) Prothrombin Time-INR (06/18/2024 2:20 PM EST) Prothrombin Time 16.7(H) 10.9 - 12.4 SEC [facility] INTERNATIONAL NORM RATIO 1.4(H) 0.9 - 1.1 [facility] Comment:INTERNATIONAL NORMAL IZED RATIO (INR) REFERENCE [...] ORDERAB LES Final Result Performing Organization Address [facility] Co de Phone Number [facility] [address] [place] [phone] * Lipase (06/18/2024 2:20 PM EST) Pathologist [facility] Lipase 19 8 - 78 U/L [facility] 06/18/2024 2:20 PM EST 06/18/2024 2:24 PM EST Generic External Data Provider LAB BLOOD ORDERAB LES Final Result Performing Organization Address [facility] Co de Phone Number [facility] [address] [place] [phone] * (ABNORMAL) Lactic Acid (06/18/2024 2:20 PM EST) Lactic Acid 4.8(HH) 0.5 - 2.0 mmol/L [facility] Comment:Critical value for L ACTIC: Results called to and read wayne: JONELLE Person calling: FABI Date: 06/18/24 Time: 144 06/18/2024 2:20 PM EST 06/18/2024 2:24 PM EST us Generic External Data Provider LAB BLOOD ORDERAB LES Final Result [facility] [address] [place] [phone] * (ABNORMAL) Comprehensive Metabolic Panel (06/18/2024 2:20 PM EST) Sodium 136 135 - 145 mmol/L [facility] Potassium 4.9 3.3 - 5.1 mmol/L [facility] Chloride 102 96 - 108 mmol/L [facility] Carbon Dioxide 22 22 - 29 mmol/L [facility] Anion Gap 17 12 - 20 [facility] Urea Nitrogen (BUN) 22(H) 9 - 16 mg/dL [facility] Creatinine, Serum 0.78 0.5 - 1.4 mg/dL [facility] Creatinine Clr Calc Pharmacy 116.0 [facility] Comment:Provided height and weight: 167.64 cm,153.768 kg.eGFR (calculated from the MDRD study equation) and eCrCl(calculated from the Cockcroft-Gault equation) are based ondifferent parameters and may not yield comparable results.If eCrCl result is absurd, please check patient'sheight/weight. Estimated Glomerular Filt Rate >60 [facility] Comment:Chronic Kidney Disea se: Estimated GFR < 60 mL/min/[id number] Kidney Disease: Estimated GFR < 15 mL/min/1.73m2 Glucose 124(H) 60 - 115 mg/dL [facility] Calcium 8.5 8.4 - 10.2 mg/dL [facility] Bilirubin, Total 3.5(H) 0.0 - 1.0 mg/dL [facility] Comment:Slight Icterus. Aspartate Amino Transferase 209(H) 5 - 31 U/L [facility] Alanine Aminotransferase 109(H) 0 - 31 U/L [facility] Total Protein 6.9 6.5 - 8.0 g/dL [facility] Albumin Level 2.9(L) 3.5 - 5.0 g/dL [facility] Alkaline Phosphatase 347(H) 39 - 117 U/L [facility] 06/18/2024 2:20 PM EST 06/18/2024 2:24 PM EST Generic External Data Provider LAB BLOOD ORDERAB LES Final Result Performing Organization Address City/[facility]/ZIP Co de Phone Number [facility] [address] [place] [phone] * Culture, Urine, Routine (04/10/2024 6:15 PM EST) Urine Urine specimen obtained by clean catch procedure / Unknown 04/10/2024 6:15 PM EST 04/11/2024 11:57 AM EST Comment:UACC Narrative [facility] - 04/12/2024 1:26 PM EST Urine Culture Report Result Urine Culture > 100,000 cfu/ml Urine Culture Mixed bacterial clari characteristic of Urine Culture urogenital contamination. Specimen Source: Urine clean catch Nicolle LEHMANP LAB MICROBIOLOGY - GENERAL LESLY GLASER Final Result [facility] [address] [place] [phone] * (ABNORMAL) POCT urinalysis dipstick manually resulted (04/10/2024 4:16 PM EST) Color, UA Yellow Clarity, UA Clear Glucose, UA Negative Bilirubin, UA Negative Ketones, UA Positive Comment:TRACE Spec Grav, UA 1.025 Blood, UA Positive(A) Negative, None Detected Comment:TRACE-INTACT pH, UA 5.5 Protein, UA Trace Comment:30 mg/dl Urobilinogen, UA 0.2 Leukocytes, UA Trace Negative, Rare, Trace Comment:SMALL Nitrite, UA Positive(A) Negative, None Detected Urine 04/10/2024 4:16 PM EST Nicolle Smith CABLE TECHNICIAN POINT OF CARE TEST ENTER/EDIT O RDERABLES Final Result * Hm Diabetes Eye Exam (12/15/2023) Eye Exam Normal Normal us Osei Fernández MD HEALTH MAINTENANCE Final Result * (ABNORMAL) POCT HGB A1C (11/12/2023 9:58 AM EDT) Hemoglobin A1C 6.4(A) 4.0 - 6.0 % Blood 11/12/2023 9:58 AM EDT us Osei Fernández MD POINT OF CARE TEST ENTER/EDIT OR DERABLES Final Result * Lipid Panel, Standard (03/08/2023 10:12 AM EDT) Triglycerides 73 <150 mg/dL [facility] Comment:Desirable Triglyceri de: less than 150 mg/dLBorderline High Triglyceride 150-199 mg/dLHigh Triglyceride: 200-499 mg/dLVery High Triglyceride: greater than or equal to 5OO mg/dL Cholesterol 148 <200 mg/dL [facility] Comment:Desirable Cholestero l: less than 200 mg/dLBorderline High Cholesterol: 200-239 mg/dLHigh Cholesterol: greater than 239 mg/dL LDL Cholesterol Calculated 89 <100 mg/dL [facility] Comment:Desirable LDL: less than 100 mg/dLNear Optimal/Above Optimal LDL: 110- 129 mg/dLBorderline High LDL: 130-159 mg/dLHigh LDL: 160-189 mg/dLVery High LDL: greater than or equal to 190 mg/dL HDL Cholesterol 45 >40 mg/dL [facility] Comment:Desirable HDL: great er than 40 mg/dL Note: This HDL assay may give artificially low results in patients with liver disease. Blood Venous blood specimen / Unknown 03/08/2023 10:12 AM EDT 03/08/2023 11:38 AM EDT Osei Fernández MD LAB BLOOD ORDERABLES Final Resul t [facility] [address] [place] [phone] * Req: Mammogram (Screening); Bilateral (04/17/2021 10:29 AM EST) Anatomical Region Laterality Modality Breast Bilateral Mammography 04/17/2021 10:2 9 AM EST Narrative 04/17/2021 10:34 AM EST Refer to the Notes tab for result details [facility] Procedure: Req: Mammogram (Screening); Bilateral Procedure Note Provider, Eleonora, - 08/09/2022 Refer to the Notes tab for result details [facility] Procedure: Req: Mammogram (Screening); Bilateral Osei Fernández MD IMG BI PROCEDURES Final Result * (ABNORMAL) Hm Colonoscopy (08/01/2018) Colonoscopy Abnormal(A ) Normal [facility] External Provider HEALTH MAINTENANCE Final Result * HM Hepatitis C Antibody (06/01/2018 11:25 AM EST) Hepatitis C Antibody Nonreactive Blood Historical Provider HEALTH MAINTENANCE Final Result from Last 3 Months or Most Recently Relevant to Health Maintenance Insurance [address] [place], [place] [address] MEDICAID STAND ADULT Care Teams Naval Architect Specialist Relationship Specialty Start Date End Date Name, MD Osei [address] [place] [address] PCP - General Family Medicine 10/04/15 Kirit Galarza FNP [address] [place] [address] Nurse Practitioner Family Medicine 04/20/23
--- OUTSIDE RECORDS SUMMARY | 2024-06-18 15:10 | XMS_ITS | Encounter Summary ---
Author Organization [employer] Address [address] [place] [address] Care Team Providers Care Rn Intake Name Role Phone Name, Osei AGUSTIN Primary Care Provider [phone] Kirit Galarza Unavailable Unavailable Reason for Visit * Reason Onset Date Comments Med Refill 06/13/2024 Encounter Details Date Type Department Care Team ([facility] st Contact Info) Description 06/13/2024 Telephone [facility] [address] [place], [place] [phone] Name, MD Osei [address] [place], [place] [phone] Med Refill Social History Tobacco Use Types [...] encounter Miscellaneous Notes * Telephone Encounter - Lisa Tyson RN - 06/13/2024 12:51 PM EST Duplicate request * Telephone Encounter - Rajan Morgan - 06/13/2024 8:25 AM EST TC from pt requesting medication refill. Medications needing refill : oxyCODONE-acetaminophen (Percocet) 7.5-325 MG tablet To be sent to: [facility] - [place], [place] - [address] [place] [address] documented in this encounter Plan of Treatment Upcoming Encounters Date Type Department Care Team (Late st Contact Info) Description 07/05/2024 2:30 PM EST Office Visit [address] [address] Name, MD Osei [address] [place] [address] 07/14/2024 11:00 AM EST Telemedicine [address] [address] Lisa Tyson RN documented as of this encounter Visit Diagnoses Not on filedocumented in this encounter Additional Health Concerns Assessment Noted Time PHQ-9 Depression Total Score: 9 11/30/19 24 10:02 AM EDT documented as of this encounter Care Teams Rn Intake Relationship Specialty Start Date End Date Name, MD Osei [address] [place] [address] PCP - General Family Medicine 10/04/15 Kirit Galarza FNP [address] [place] [address] Nurse Practitioner Family Medicine 04/20/23 documented as of this encounter
--- OUTSIDE RECORDS SUMMARY | 2024-06-18 15:10 | XMS_ITS | Encounter Summary ---
Author Organization [employer] Address [address] [place] [address] [address] Care Team Providers Care Soubrette Name Role Phone Name, Osei AGUSTIN Primary Care Provider [phone] Kirit Galarza Unavailable Unavailable Reason for Visit * Reason Comments Med Refill Encounter Details Date Type Department Care Team (Late st Contact Info) Description 03/25/2024 Refill [facility] [address] [place], [place] [phone] Name, MD Osei [address] [place] [address] Asthma, unspecified asthma severity, unspecified whether complicated, unspecified whether persistent Social History Tobacco Use Types Packs/Day Years [...] 07/05/2024 2:30 PM EST Office Visit [address] [address] Name, MD Osei [address] [place] [phone] 07/14/2024 11:00 AM EST Telemedicine [address] [address] Lisa Tyson, GEETHA documented as of this encounter Visit Diagnoses Diagnosis Asthma, unspecified asthma severity, unspecified whether complicated, unspecified whether persistent documented in this encounter Additional Health Concerns Assessment Noted Time PHQ-9 Depression Total Score: 9 11/30/19 24 10:02 AM EDT documented as of this encounter Care Teams Soubrette Relationship Specialty Start Date End Date Name, MD Osei [address] [place] [phone] PCP - General Family Medicine 10/04/15 Kirit Galarza FNP [address] [place] [address] Nurse Practitioner Family Medicine 04/20/23 documented as of this encounter
--- OUTSIDE RECORDS SUMMARY | 2024-06-18 15:10 | XMS_ITS | Encounter Summary ---
Author Organization [employer] [facility] Address [address] [place] [address] Care Team Providers Care Serging Machine Operator Automatic Name Role Phone Name, Osei AGUSTIN Primary Care Provider Kirit Galarza Unavailable Unavailable Reason for Visit * Reason Comments Med Refill Encounter Details Date Type Department Care Team (Late st Contact Info) Description 10/07/2022 Refill [facility] [address] [place] [phone] Kirit Galarza FNP MDD (major depressive disorder), recurrent episode, moderate [...] suspected to have Coronavirus/COVID-19? No / Unsure 10/05/2022 9:39 AM EDT documented as of this encounter Plan of Treatment Upcoming Encounters Date Type Department Care Team (Late st Contact Info) Description 07/05/2024 2:30 PM EST Office Visit [facility] [address] [place] [address] [phone] Name, MD Osei [address] [place] [address] 07/14/2024 11:00 AM EST Telemedicine [facility] [address] [place] [address] Lisa Tyson, RN documented as of this encounter Visit Diagnoses Diagnosis MDD (major depressive disorder), recurrent episode, moderate (CMS/HCC) documented in this encounter Additional Health Concerns Assessment Noted Time PHQ-9 Depression Total Score: 4 08/25/19 23 12:55 PM EDT documented as of this encounter Care Teams Serging Machine Operator Automatic Relationship Specialty Start Date End Date Name, MD Osei [address] [place] [address] PCP - General Family Medicine 10/04/15 Kirit Galarza FNP [address] [place] [address] Nurse Practitioner Family Medicine 04/20/23 documented as of this encounter
--- OUTSIDE RECORDS SUMMARY | 2024-06-18 15:10 | XMS_ITS | Encounter Summary ---
Author Organization [employer] Address [address] [facility] [address], [place] [address] Care Team Providers Care Valve Technician Name Role Phone Name, Osei AGUSTIN Primary Care Provider [phone] Kirit Galarza Unavailable Unavailable Reason for Visit * Reason Comments Med Refill Encounter Details Date Type Department Care Team (Late st Contact Info) Description 02/16/2024 Refill [facility] [address] [place], [place] [phone] Name, MD Osei [address] [place] [address] Osteoarthritis of knee, unspecified laterality, unspecified osteoarthritis [...] Description 07/05/2024 2:30 PM EST Office Visit [address] [address] Name, MD Osei [address] [place] [phone] 07/14/2024 11:00 AM EST Telemedicine [address] [address] Lisa Tyson, GEETHA documented as of this encounter Visit Diagnoses Diagnosis Osteoarthritis of knee, unspecified laterality, unspecified osteoarthritis type documented in this encounter Additional Health Concerns Assessment Noted Time PHQ-9 Depression Total Score: 9 11/30/19 24 10:02 AM EDT documented as of this encounter Care Teams Valve Technician Relationship Specialty Start Date End Date Osei Fernández MD [address] [place] [address] PCP - General Family Medicine 10/04/15 Kirit Galarza FNP [address] [place] [address] Nurse Practitioner Family Medicine 04/20/23 documented as of this encounter
--- OUTSIDE RECORDS SUMMARY | 2024-06-18 15:10 | XMS_ITS | Encounter Summary ---
Author Organization [employer] Address [address] [place] [phone] Care Team Providers Care Compound Specialist Name Role Phone Name, Osei AGUSTIN Primary Care Provider [phone] Kirit Galarza Unavailable Unavailable Reason for Visit * Reason Onset Date Comments Referral 06/12/2024 Encounter Details Date Type Department Care Team ([facility] st Contact Info) Description 06/12/2024 Telephone [facility] [address] [place], [place] [phone] Name, MD Osei [address] [place] [address] Referral Social History Tobacco Use Types Packs/Day Years [...] encounter Miscellaneous Notes * Telephone Encounter - Phoebe Reyes RN - 06/12/2024 1:38 PM EST TC placed via [employer] branch or department chief librarian ([employer] ID#[id number]) to inform of PCP message, We will discuss at her next visit . Pt denies chest pain, SOB, fever, chills, dizziness, chest pain. Pt reports she had blurry vision earlier today, but her blood sugar was 84 so she ate a snack and it improved. Pt reports mild, intermittent headache. Pt reports she has a strong pain and can't eat sometimes due to hernia. Pt reports she has been feeling this way for a week and that she has a hernia of the mouth of the stomach Pt is concerned and feels she needs to be seen by [facility] gastroenterology soon. Pt also reports she has a pain in the lower side of her rib and is concerned about the hernia or it being her gallbla dder. Pt reports gas pain and is taking medication for it with little relief. Pt reports she has seen 2 drive in waiter/waitress who have not done anything to help. Pt reports her pain at night is a 10/10 but during the day is 0/10. Pt reports laying on her side helps and if she lays differently the painspreads to her back. Advised with her new symptoms, she should be evaluated in the Walk In [facility] or ED. Pt reports she will come to [facility] tomorrow morning as there will be too many people here today that are sick. RN advised of [facility] hours and to call office with any questions or concerns. Pt agrees to plan and denies any questions or concerns at this time. * Telephone Encounter - Rajan Morgan - 06/12/2024 10:54 AM EST Tc from pt requesting a referral to see a Gastro in [facility]. Pt was first referred to [facility] but pt does not like the Medical treatment that she is receiving and wants to switch. Contact pt at [phone] documented in this encounter Plan of Treatment Upcoming Encounters Date Type Department Care Team (Late st Contact Info) Description 07/05/2024 2:30 PM EST Office Visit [facility] [address] [place] [address] Name, MD Osei [address] [place] [address] 07/14/2024 11:00 AM EST Telemedicine [facility] [address] [place] [address] Lisa Tyson, GEETHA documented as of this encounter Visit Diagnoses Not on filedocumented in this encounter Additional Health Concerns Assessment Noted Time PHQ-9 Depression Total Score: 9 11/30/19 24 10:02 AM EDT documented as of this encounter Care Teams Compound Specialist Relationship Specialty Start Date End Date Osei Fernández MD [address] [place] [address] PCP - General Family Medicine 10/04/15 Kirit Galarza FNP [address] [place] [address] Nurse Practitioner Family Medicine 04/20/23 documented as of this encounter
--- OUTSIDE RECORDS SUMMARY | 2024-06-18 15:10 | XMS_ITS | Encounter Summary ---
Author Organization Formerly [facility] Address [facility] [place] [address] Care Team Providers Care Trimming Press Operator Name Role Phone Name, Osei AGUSTIN Primary Care Provider Unavailabl e Maylin Lim DO Primary Care Pro vider Unavailable Name, Osei AGUSTIN Primary Care Provider Unavailabl e Encounter Details Date Type Department Care Team Description 09/18/2009 Can Closing Machine Operator Report Medical Records [address] [place] [id number] Bebeto Lebron MD Social History Tobacco Use Types Packs/Day Years Used Date Smoking Tobacco: Never Alcohol Use Standard Drinks/Week Comments No 0 (1 standard drink = 0.6 oz pur e alcohol) Sex Assigned at Date Recorded Not on file documented as of this encounter Plan of Treatment Not on file documented as of this encounter Visit Diagnoses Not on filedocumented in this encounter Care Teams Trimming Press Operator Relationship Specialty Start Date End Date Osei Fernández MD PCP - General 09/08/1997 06/06/15 Maylin Lim DO PCP - General Internal Medicine 06/07/15 10/23/15 Osei Fernández MD PCP - General Internal Medicine 10/24/15 documented as of this encounter
--- OUTSIDE RECORDS SUMMARY | 2024-06-18 15:10 | XMS_ITS | Encounter Summary ---
Author Organization [employer] Address [address] [place] [address], [place] [address] Care Team Providers Care Label Sewer Name Role Phone Name, Osei AGUSTIN Primary Care Provider [phone] Kirit Galarza Unavailable Unavailable Reason for Visit * Reason Comments Med Refill Encounter Details Date Type Department Care Team (Late st Contact Info) Description 06/30/2023 Refill [facility] [address] [place], [place] [phone] Name, MD Osei [address] [place], [place] [phone] Osteoarthritis of knee, unspecified laterality, unspecified osteoarthritis [...] Description 07/05/2024 2:30 PM EST Office Visit [address] [address] Name, MD Osei [address] [place] [address] 07/14/2024 11:00 AM EST Telemedicine [address] [address] Lisa Tyson, GEETHA documented as of this encounter Visit Diagnoses Diagnosis Osteoarthritis of knee, unspecified laterality, unspecified osteoarthritis type documented in this encounter Additional Health Concerns Assessment Noted Time PHQ-9 Depression Total Score: 11 023 3:34 PM EST documented as of this encounter Care Teams Label Sewer Relationship Specialty Start Date End Date Name, MD Osei [address] [place] [id number] PCP - General Family Medicine 10/04/15 Kirit Galarza FNP [address] [place] [address] Nurse Practitioner Family Medicine 04/20/23 documented as of this encounter
--- OUTSIDE RECORDS SUMMARY | 2024-06-18 15:10 | XMS_ITS | Encounter Summary ---
Author Organization [employer] Address [address] [facility] [address], [place] [address] Care Team Providers Care Lapeler Name Role Phone Name, Osei AGUSTIN Primary Care Provider [phone] Kirit Galarza Unavailable Unavailable Encounter Details Date Type Department Care Team ([facility] st Contact Info) Description 05/15/2024 Telephone [facility] PEDS [address] [place], [place] [phone] Name, MD Osei [address] [place] [address] Social History Tobacco Use Types Packs/Day Years [...] Description 07/05/2024 2:30 PM EST Office Visit [address] [address] Name, MD Osie [address] [place] [address] 07/14/2024 11:00 AM EST Telemedicine [address] [address] Lisa Tyson RN documented as of this encounter Visit Diagnoses Not on filedocumented in this encounter Additional Health Concerns Assessment Noted Time PHQ-9 Depression Total Score: 9 11/30/19 24 10:02 AM EDT documented as of this encounter Care Teams Lapeler Relationship Specialty Start Date End Date Name, MD Osei [address] [place] [phone] PCP - General Family Medicine 10/04/15 Kirit Galarza FNP [address] [place] [address] Nurse Practitioner Family Medicine 04/20/23 documented as of this encounter
--- OUTSIDE RECORDS SUMMARY | 2024-06-18 15:10 | XMS_ITS | Encounter Summary ---
Author Organization [employer] Address [address] [place] [address], [place] [address] Care Team Providers Care Director Of Reservations Name Role Phone Name, Osei AGUSTIN Primary Care Provider [phone] Kirit Galarza Unavailable Unavailable Reason for Visit * Reason Onset Date Comments Med Refill Appointment 03/11/2023 [facility] Encounter Details Date Type Department Care Team (Late st Contact Info) Description 03/08/2023 Refill [facility] MED[facility]INE [address] [place], [place] [phone] Kirit Galarza FNP MDD (major depressive disorder), recurrent episode, moderate (CMS/HCC) Social History Tobacco Use Types Packs/Day Years Used Date Smoking Tobacco: Never Smokeless Tobacco: Never Alcohol Use Standard Drinks/Week Comments Never 0 (1 standard drink = 0.6 oz pur e alcohol) Depression Answer Date Recorded Patient Health Questionnaire-9 Score 9 03/11/2023 Patient Health Questionnaire-9 Score 9 03/11/2023 Last PHQ-9: Questionnaire Data Not on file 1 Housing Stability Answer Date Recorded What is [...] Date Recorded Patient Health Questionnaire-2 Score 4 03/11/2023 Comments Unknown Sex and Gender Information Value Date Recorded Sex Assigned at Female 03/16/2022 10:14 AM EDT Legal Sex Female 10:14 AM EDT Gender Identity Female 03/16/2022 10:14 AM EDT Sexual Orientation Straight 03/16/2022 10 :14 AM EDT documented as of this encounter Miscellaneous Notes * Telephone Encounter - Zuleyka Delarosa [place] - 03/11/2023 4:03 PM EDT T/C placed to pt and I Left a voice mail stating that her next appt as [id number] will be on 04/29/23 @1pm And if she has any issues with appt date/time to return my call. documented in this encounter Plan of Treatment Upcoming Encounters Date Type Department Care Team (Late st Contact Info) Description 07/05/2024 2:30 PM EST Office Visit [address] [address] Name, MD Osei [address] [place] [address] 07/14/2024 11:00 AM EST Telemedicine [address] [address] Lisa Tyson, GEETHA documented as of this encounter Visit Diagnoses Diagnosis MDD (major depressive disorder), recurrent episode, moderate (CMS/HCC) documented in this encounter Additional Health Concerns Assessment Noted Time PHQ-9 Depression Total Score: 6 10/28/19 23 9:30 AM EDT documented as of this encounter Care Teams Director Of Reservations Relationship Specialty Start Date End Date Name, MD Osei [address] [place] [address] PCP - General Family Medicine 10/04/15 Kirit Galarza FNP [address] [place] [address] Nurse Practitioner Family Medicine 04/20/23 documented as of this encounter
--- OUTSIDE RECORDS SUMMARY | 2024-06-18 15:10 | XMS_ITS | Encounter Summary ---
Author Organization [employer] Address [address] [place] [address] 7[place], [place] [address] Care Team Providers Care Translation Director Name Role Phone Name, Osei AGUSTIN Primary Care Provider [phone] Kirit Galarza Unavailable Unavailable Reason for Visit * Reason Comments Med Refill Encounter Details Date Type Department Care Team (Late st Contact Info) Description 06/07/2024 Refill [facility] MEDICINE [address] [place], [place] [phone] Name, MD Osei [address] [place] [address] Social History Tobacco Use Types Packs/Day Years [...] Description 07/05/2024 2:30 PM EST Office Visit [address] [address] Name, MD Osei [address] [place] [address] 07/14/2024 11:00 AM EST Telemedicine [address] [address] Lisa Tyson RN documented as of this encounter Visit Diagnoses Not on filedocumented in this encounter Additional Health Concerns Assessment Noted Time PHQ-9 Depression Total Score: 9 11/30/19 24 10:02 AM EDT documented as of this encounter Care Teams Translation Director Relationship Specialty Start Date End Date Pradeep, MD Osei [address] [place] [address] PCP - General Family Medicine 10/04/15 Kirit Galarza FNP [address] [place] [address] Nurse Practitioner Family Medicine 04/20/23 documented as of this encounter
--- OUTSIDE RECORDS SUMMARY | 2024-06-18 15:10 | XMS_ITS | Encounter Summary ---
Author Organization [employer] Address [address] [place] [address] 7[place] [address] Care Team Providers Care Net Developer Contract Name Role Phone Name, Osei AGUSTIN Primary Care Provider Kirit Galarza Unavailable Unavailable Reason for Visit * Reason Comments Med Refill Encounter Details Date Type Department Care Team (Late st Contact Info) Description 06/04/2023 Refill [facility] MED[facility]INE [address] [place], [place] [phone] Nicolle Smith FNP [address] [place] [address] Osteoarthritis of knee, unspecified laterality, unspecified osteoarthritis [...] Description 07/05/2024 2:30 PM EST Office Visit [address] [address] Name, MD Osei [address] [place] [address] 07/14/2024 11:00 AM EST Telemedicine [address] [address] Lisa Tyson, GEETHA documented as of this encounter Visit Diagnoses Diagnosis Osteoarthritis of knee, unspecified laterality, unspecified osteoarthritis type documented in this encounter Additional Health Concerns Assessment Noted Time PHQ-9 Depression Total Score: 11 023 3:34 PM EST documented as of this encounter Care Teams Net Developer Contract Relationship Specialty Start Date End Date NameOsei MD [address] [place] [phone] PCP - General Family Medicine 10/04/15 Kirit Galarza FNP [address] [place] [phone] Nurse Practitioner Family Medicine 04/20/23 documented as of this encounter
--- OUTSIDE RECORDS SUMMARY | 2024-06-18 15:10 | XMS_ITS | Encounter Summary ---
Author Organization [facility] Address [address] [place] [address] [facility] [place] [address] Care Team Providers Care Gas Engine Performance Engineer Name Role Phone Maylin Lim DO Primary Care Pro vider Unavailable Osei Fernández MD Primary Care Provider Unavailabl e Encounter Details Date Type Department Care Team Description 09/03/2015 Controlled Substance Contract with Plan Medical Records [address] [place] [address] Abstract, Provider Social History Tobacco Use Types [...] on filedocumented in this encounter Care Teams Gas Engine Performance Engineer Relationship Specialty Start Date End Date Maylin Lim DO PCP - General Internal Medicine 06/07/15 10/23/15 Osei Fernández MD PCP - General Internal Medicine 10/24/15 documented as of this encounter
--- OUTSIDE RECORDS SUMMARY | 2024-06-18 15:11 | XMS_ITS | Clinical Summary ---
Author Organization [facility] Address [address] [facility] [place] [address] Care Team Providers Care Rubbish Collection Supervisor Name Role Phone Name, Osei AGUSTIN Primary Care Provider Unavailabl e Allergies Active Allergy Reactions Severity Noted Date Comments Bee Stings Hives/Urticaria 09/20/2013 Cortisone Acetate 03/26/2008 Penicillin V Potassium Rash/Dermatitis,Itching/Pruritus 02/26/2006 Medications Medication Sig Dispensed Refills Start Date End Date Status Albuterol 90 MCG/ACT AERS Inhale 1 Puff into the lungs 4 times daily as needed (wheezing and sob). 1 Inhaler 3 03/11/2012 Active levothyroxine (SYNTHROID, LEVOTHROID) 300 MCG tabletIndications:H istory of thyroid cancer Take 1 Tab by mouth daily. Patient is using a total to 325 mcg daily. Patient follow with Endo at [facility]. Goal is for a slightly low TSH 30 Tab 11 04/18/2013 Active clotrimazole (LOTRIMIN) 1 % cream apply topically to affected area twice a day 15 g 4 09/04/2013 Active clonazepam (KLONOPIN) 0.5 MG tabletIndications:A nxiety Take 1 Tab by mouth at bedtime as needed for Anxiety. 28 Tab 0 04/20/2014 Active Zolpidem Tartrate (AMBIEN) 10 MG TabIndications:Inso mnia Take 1 Tab by mouth at bedtime as needed for Insomnia. 28 Tab 0 04/20/2014 Active loratadine (CLARITIN) 10 MG tablet Take 1 Tab by mouth daily. 20 Tab 0 05/16/2014 Active sumatriptan (IMITREX) 50 MG tablet May repeat dose once after 2 hours, if needed. No more than 2 per day 9 Tab 0 03/20/2015 Active FREESTYLE LITE strip TEST twice a day 100 Each 4 05/13/2015 Active RA SALINE NASAL SPRAY 0.65 % nasal spray instill 1 spray into each nostril twice a day if needed for congestion 45 mL 5 07/04/2015 Active pantoprazole (PROTONIX) 20 MG tablet take 1 tablet by mouth once daily 30 Tab 5 07/12/2015 Active lidocaine (LIDODERM) 5 % apply 1 patch to the affected area daily. Leave on for 12 hours and then off for 12 hours. 30 Patch 0 08/14/2015 Active EPINEPHrine (EPIPEN 2-MARYSOL) 0.3 MG/0.3ML Solution Auto-injector Inject 1 Each as directed as needed (anaphlaxis). 1 Each 3 08/30/2015 Active Cholecalciferol (VITAMIN D) 400 UNITS TabIndications:Unsp ecified asthma(493.90) Take 2 Tabs by mouth daily. 120 Tab 5 08/30/2015 Active FLOVENT HFA 220 MCG/ACT inhaler inhale 1 puff by mouth twice a day 12 g 09/09/2015 Active Multiple Vitamin (TAB-A-MICHAEL) Tab take 1 tablet by mouth once daily 30 Tab 5 09/09/2015 Active CONSTULOSE 10 GM/15ML solution TAKE 15 ML (1 TABLESPOONSFUL) BY MOUTH ONCE DAILY WITH BREAKFAST 450 mL 09/09/2015 Active nabumetone (RELAFEN) 500 MG tablet TAKE 1 TABLET BY MOUTH TWICE A DAY 40 Tab 0 09/19/2015 Active oxycodone-acetamino phen (PERCOCET) 7.5-325 MG per tabletIndications:R ight knee DJD Take 1 tablet by mouth every 8 hours as needed for Pain. 84 Tab 0 09/30/2015 Active aspirin (ASPIRIN LOW DOSE) 81 MG EC tablet Take 1 Tab by mouth daily. 30 Tab 5 10/08/2015 Active fluticasone 50 MCG/ACT nasal spray instill 2 sprays into each nostril once daily 16 g 5 10/08/2015 Active ALBUTEROL SULFATE (PROAIR HFA) 108 (90 BASE) MCG/ACT Aero Soln Inhale 1 Puff into the lungs every 4 hours as needed for Cough or Wheezing. 8.5 g 10/08/2015 Active montelukast (SINGULAIR) 10 MG tablet Take 1 Tab by mouth at bedtime. 30 Tab 5 10/08/2015 Active FREESTYLE LANCETS Misc Apply 1 Each topically 2 times daily. 100 Each 5 10/08/2015 Active Active Problems Patient Care Coordination No te Formatting of this note is d ifferent from the original. Checking Your Blood Sugars Please check your blood sugars every day. Please check your sugars at the following times of day: as needed Your Blood Sugar Goals Pre Meal: 90-130 2 hours after meals: 110-160 Bedtime: 110-150 Use the Results ?? Bring your glucometer to every appointment ?? Write your fingerstick blood sugars down on a log sheet or record book. Bring them to your appointment ?? Look for patterns in the numbers. The results help you and your provider make decisions about your diabetes treatment plan. Your Results and your Goals Your Result / Date of Completion Your Goal / How Often to Assess Component Value Date HGBA1C 5.6 10/05/2012 Less than 7%--- 2-4 times per year BP Readings from Last 1 Encounters: 10/26/12 130/70 Less than 130/80--- once per year Component Value Date LDL 84 10/05/2012 LDL less than 100--- once per year Component Value Date MALBUR 3.4 10/05/2012 Less than 30--- once per year Wt Readings from Last 1 Encounters: 10/26/12 347 lb (157.398 kg) Your goal weight by next visit: 340 --- reassess 2-4 times a year Health Maintenance Due Topic Date Due ? ? Pap Smear 02/23/1984 ? ? Baseline Health Exam 40-64 2003 ? ? Mammogram 2003 ? ? Diabetes: Annual Eye Exam 01/24/2011 ? ? Diabetes: Annual Foot Exam 03/25/2012 ? ? Diabetes: Annual Care Plan 05/26/2012 Your Action Plan Check blood glucose as directed and write down all results. Check feet for sores every day Contact me if you experience any barriers to care such as inability to purchase your medication, difficulty getting to your appointments or difficulty understanding your care plan Please get your yearly flu shot When to Call your Healthcare Provider If your blood sugar falls below 70 and you do not know why or you become unconscious If you are sick and unable to take liquids because or nausea or vomiting If you have a fever over 101 If your blood sugar is 300 or higher on greater than 3 separate occasions during the same week If you are just unsure what to do Educational Resources [place] Diabetes Association (www.diabetes.org) Centers for Disease Control and Prevention (www.cdc.gov/diabetes) This care plan was created in collaboration with Luisa Nieves on 10/26/2012 Problem Noted Date Low back pain 04/02/2015 GERD (gastroesophageal reflux disease) 0 06/19/2014 Varicose veins 03/28/2014 Anxiety 06/08/2013 Dizziness 02/10/2012 Gastric banding status 10/10/2010 Overview: Reversed on 2014 History of thyroidectomy 03/04/2010 History of thyroid cancer 01/15/2010 Overview: Thyroid nodule positive for papillary cancer/ Status post thyroidectomy on 2009 and radioactive iodine. Right knee DJD 09/10/2009 Overview: Severe. The patient has been recommended TKR Migraine 08/10/2008 Macromastia 01/09/2008 Uveitis 09/07/2007 Unspecified vitamin D deficiency 007 Asthma 04/13/2006 OBSTRUCTIVE SLEEP APNEA, ADULT & PED, on CPAP machine 04/13/2006 Type II or unspecified type diabetes mellitus without mention of complication, not stated as uncontrolled 02/26/2006 Overview: Diet controlled Lumbago 02/26/2006 Overview: Moderate facet arthropathy. Evidence of diffuse idiopathic skeletal hyperostosis on X-ray done on 2011 Depressive disorder, not elsewhere class ified 02/26/2006 Morbid obesity 02/26/2006 Overview: S/P gastric banding on 02/2007 Heartburn 02/26/2006 Unspecified constipation 02/26/2006 Overview: IMO update Resolved Problems Problem Noted Date Resolved Date Impacted cerumen of right ear 02/10/2012 Numbness 01/09/2008 03/27/2008 Insect bite 01/09/2008 03/27/2008 Ear pain 09/07/2007 01/09/2008 Pharyngitis 09/07/2007 01/09/2008 Blurred vision 08/03/2007 09/07/2007 Shoulder pain 07/01/2007 09/10/2009 Folliculitis 06/10/2007 09/07/2007 Back pain 04/04/2007 06/10/2007 Infective otitis externa, unspecified 11/02/2006 06/10/2007 Overview: IMO [id number] update Dyspepsia and other specifie d disorders of function of stomach 09/20/2006 03/27/2008 Phlebitis or thrombophlebitis of lower extremity 06/01/2006 06/10/2007 Pain in limb 05/25/2006 11/02/2006 Overview: Left leg pain Acute upper respiratory infections of unspecifie d site 04/13/2006 06/10/2007 Overview: IMO update OSTEOARTHROSIS,involving low back, elbows and kn ess 02/26/2006 04/02/2015 Overview: IMO [id number] update CELLULITIS AND ABSCESS OF UNSPECIFIED LEFT BREAS T 02/26/2006 06/10/2007 Overview: IMO update Lateral epicondylitis of elbow 02/26/2006 0 06/10/2007 Overview: IMO update Dermatophytosis of foot 02/26/2006 06/10/19 08 Encounter for screening for malignant neoplasm 1 02/26/2006 Immunizations Name Administration Dates Next Due Influenza (> 6 Months) 06/08/2013,2011,02/09/2007, 006 TD (STATE SUPPLIED FOR ADULT S AND CHILDREN) 04/13/2006 Tdap 09/24/2010 Family History Medical History Relation Name Comments CA Breast Aunt paternal Diabetes Father Cataract Mother Relation Name Status Comments Aunt Father Mother Social History Tobacco Use Types Packs/Day Years Used Date Smoking Tobacco: Never Smokeless Tobacco: Never Alcohol Use Standard Drinks/Week Comments No 0 (1 standard drink = 0.6 oz pur e alcohol) Sex Assigned at Date Recorded Not on file Last Filed Vital Signs Vital Sign Reading Time Taken Comments Blood Pressure 120/80 08/30/2015 1:20 PM EDT Pulse 72 08/30/2015 1:20 PM EDT Temperature 36.9 ??C (98.4 ??F) 08/30/2015 1:20 PM ED T Respiratory Rate 14 08/30/2015 1:20 PM EDT Oxygen Saturation 98% 05/16/2014 11:23 AM EST Inhaled Oxygen Concentration - - Weight 161 kg (355 lb) 08/30/2015 1:20 PM EDT Height 165.1 cm (5' 5 ) 08/30/2015 1:20 PM EDT Body Mass Index 59.08 08/30/2015 1:20 PM EDT Plan of Treatment Health Maintenance Due Date Last Done Comments Covid-19 Vaccine (#1) 1963 TOBACCO CHECK/ADVISE 1981 PNEUMOCOCCAL VACCINE FOR HIG H RISK PATIENTS (#1) 1982 CERVICAL CANCER SCREENING 02/23/1984 BASELINE HEALTH EXAM 40-64 2003 DIABETES: ANNUAL EYE EXAM 01/24/2011 01/24/2010 COLON CANCER SCREENING 2013 SHINGLES VACCINE (1 of 2) 2013 DIABETES: ANNUAL FOOT EXAM 07/28/201507/27, 07/27/2014, 03/25/2011, Additional history exists DIABETES: BLOOD SUGAR CONTRO L TEST (HGBA1C) 11/29/2015 08/30/2015, 05/15/2015, 07/31/2014, Additional history exists MAMMOGRAM 04/24/2016 04/24/2015, 10/23/2014 DIABETES/HEART DISEASE: FLOR AL CHOLESTEROL (LDL) 08/29/2016 08/30/2015, 07/31/2014, 05/30/2013, Additional history exists DIABETES: ANNUAL URINE PROTE IN TEST (MICROALBUMIN) 08/29/2016 08/30/2015, 07/31/2014, 05/30/2013, Additional history exists DTAP/TDAP/TD (2 - Td or Tdap) 09/24/2020 09/24/2010, 04/13/2006 INFLUENZA (#1) 2024 06/08/2013, 11/2011, 02/09/2007, Additional history exists BMI CHECK/ADVISE 05/17/2024 08/30/2015, , 10/11/2014, Additional history exists DEPRESSION SCREENING/FOLLOWUP 05/17/2024, 06/08/2013, 06/18/2011, Additional history exists SOCIAL NEEDS SCREENING 05/17/2024 HEPATITIS C SCREENING Completed 10/05/2012 Care Teams Rubbish Collection Supervisor Relationship Specialty Start Date End Date Name, MD Osei PCP - General Internal Medicine 10/24/15
--- OUTSIDE RECORDS SUMMARY | 2024-06-18 15:11 | XMS_ITS | Encounter Summary ---
Author Organization [facility] Address [address] [place] [address] Care Team Providers Care Teacher Of The Deaf/Hard Of Hearing Name Role Phone Name, Osei AGUSTIN Primary Care Provider Unavailabl e Maylin Lim DO Primary Care Pro vider Unavailable Name, Osei AGUSTIN Primary Care Provider Unavailabl e Reason for Visit * Reason Onset Date Comments Prior Authorization 03/31/2013 Encounter Details Date Type Department Care Team Description 03/31/2013 Telephone Adult Medicine [address] [address] Name, MD Osei Prior Authorization Social History Tobacco Use Types Packs/Day Years Used Date Smoking Tobacco: Never Smokeless Tobacco: Never Alcohol Use Standard Drinks/Week Comments No 0 (1 standard drink = 0.6 oz pur e alcohol) Sex Assigned at Date Recorded Not on file documented as of this encounter Miscellaneous Notes * Telephone Encounter - Sonia CoreyP.N. - 04/07/2013 1:25 PM EST Received letter of denial for this medication Enrrique. Please avise * Telephone Encounter - Sonia CoreyP.N. - 04/06/2013 1:34 PM EST P/a faxed to insurance,awaiting response. * Telephone Encounter - Sonia CoreyP.N. - 04/05/2013 2:36 PM EST msg noted P/a to dr craig to sign * Telephone Encounter - Osei Craig MD - 04/04/2013 3:12 PM EST Yes she can use both medications. * Telephone Encounter - Sonia CoreyP.NBuck - 04/04/2013 2:[address] craig,is pt supposed to be on azelastine and flonase nasal sprays both? Please advise wily * Telephone Encounter - Josie Gibbs - 03/31/2013 10:58 AM EST Pre Authorization for Medication Does the patient already have this medication?NO Name of Medication azelastine Dose of Medication 137 mcg nasal spray How does patient take this med? Instill 2 sprays into each nostril twice a day as directed. What other dosage or similar medication have you tried in the past for this problem Patients current medical insurance [facility] What Prescription Plan does the patient have? Prescription Plan Tel # from back of prescription ID card [phone] What is the patients Prescription Plan ID #? [id number] What Pharmacy does the patient use? Ritcindy Garcias Payor: [facility]: FFS HMO $0 [place] [id number] Product Type: MEDICAID RISK documented in this encounter Plan of Treatment Not on file documented as of this encounter Visit Diagnoses Not on filedocumented in this encounter Care Teams Teacher Of The Deaf/Hard Of Hearing Relationship Specialty Start Date End Date Name, MD Osei PCP - General 09/08/1997 06/06/15 Maylin Lim DO PCP - General Internal Medicine 06/07/15 10/23/15 Name, MD Osei PCP - General Internal Medicine 10/24/15 documented as of this encounter
--- OUTSIDE RECORDS SUMMARY | 2024-06-18 15:11 | XMS_ITS | Encounter Summary ---
Author Organization [facility] Address [facility] [address] Care Team Providers Care Chain Person Name Role Phone Name, Osei AGUSTIN Primary Care Provider Unavailabl e Maylin Lim DO Primary Care Pro vider Unavailable Name, Osei AGUSTIN Primary Care Provider Unavailabl e Encounter Details Date Type Department Care Team Description 10/25/2013 Bench Carpenter Report Medical Records [address] [place] [address] Dionte Hayes MD Social History Tobacco Use Types Packs/Day [...] on filedocumented in this encounter Care Teams Chain Person Relationship Specialty Start Date End Date Osei Fernández MD PCP - General 09/08/1997 06/06/15 Maylin Lim DO PCP - General Internal Medicine 06/07/15 10/23/15 Osei Fernández MD PCP - General Internal Medicine 10/24/15 documented as of this encounter
--- OUTSIDE RECORDS SUMMARY | 2024-06-18 15:11 | XMS_ITS | Encounter Summary ---
Author Organization [facility] Address [facility] [place] [address] Care Team Providers Care Commercial Roofing Estimator Name Role Phone Name, Osei AGUSTIN Primary Care Provider Unavailabl e Maylin Lim DO Primary Care Pro vider Unavailable Name, Osei AGUSTIN Primary Care Provider Unavailabl e Encounter Details Date Type Department Care Team Description 02/21/2010 Forming Process Worker Report Medical Records [address] [place] [address] Cezar Rosario Social History Tobacco Use Types Packs/Day Years Used Date Smoking Tobacco: Never Alcohol Use Standard Drinks/Week Comments No 0 (1 standard drink = 0.6 oz pur e alcohol) Sex Assigned at Date Recorded Not on file documented as of this encounter Plan of Treatment Not on file documented as of this encounter Visit Diagnoses Not on filedocumented in this encounter Care Teams Commercial Roofing Estimator Relationship Specialty Start Date End Date Osei Fernández MD PCP - General 09/08/1997 06/06/15 Maylin Lim DO PCP - General Internal Medicine 06/07/15 10/23/15 Osei Fernández MD PCP - General Internal Medicine 10/24/15 documented as of this encounter
--- OUTSIDE RECORDS SUMMARY | 2024-06-18 15:11 | XMS_ITS | Encounter Summary ---
Author Organization [facility] Address [address] [place] [address] Care Team Providers Care Rig Manager Name Role Phone NameOsei MD Primary Care Provider Unavailabl e Maylin Lim DO Primary Care Pro vider Unavailable Name, Osei AGUSTIN Primary Care Provider Unavailabl e Encounter Details Date Type Department Care Team Description 03/06/2010 [facility] Medical Records [address] [place] [address] Cezar Rosario Social History Tobacco Use Types [...] on filedocumented in this encounter Care Teams Rig Manager Relationship Specialty Start Date End Date Osei Fernández MD PCP - General 09/08/1997 06/06/15 Maylin Lim DO PCP - General Internal Medicine 06/07/15 10/23/15 Osei Fernández MD PCP - General Internal Medicine 10/24/15 documented as of this encounter
--- OUTSIDE RECORDS SUMMARY | 2024-06-18 15:11 | XMS_ITS | Encounter Summary ---
Author Organization [employer] Address [address] [place] [address] Care Team Providers Care Roll Hand Name Role Phone Name, Osei AGUSTIN Primary Care Provider [phone] Kirit Galarza Unavailable Unavailable Encounter Details Date Type Department Care Team (Late st Contact Info) Description 06/01/2023 Telephone [facility] [address] [place], [place] [phone] Name, MD Osei [address] [place] [address] Social History Tobacco Use Types Packs/Day Years [...] Description 07/05/2024 2:30 PM EST Office Visit [facility] [address] [place] [phone] NameOsei MD [address] [place] [address] 07/14/2024 11:00 AM EST Telemedicine [address] [address] Lisa Tyson, GEETHA documented as of this encounter Visit Diagnoses Not on filedocumented in this encounter Additional Health Concerns Assessment Noted Time PHQ-9 Depression Total Score: 11 023 3:34 PM EST documented as of this encounter Care Teams Roll Hand Relationship Specialty Start Date End Date Name, MD Osei [address] [place] [address] PCP - General Family Medicine 10/04/15 Kirit Galarza FNP [address] [place] [address] Nurse Practitioner Family Medicine 04/20/23 documented as of this encounter
--- OUTSIDE RECORDS SUMMARY | 2024-06-18 15:11 | XMS_ITS | Encounter Summary ---
Author Organization [employer] Address [address] [place] [address], [place] [address] Care Team Providers Care Crepe Sole Scourer Name Role Phone Name, Osei AGUSTIN Primary Care Provider [phone] Kirit Galarza Unavailable Unavailable Reason for Visit * Reason Comments Med Refill Encounter Details Date Type Department Care Team (Late st Contact Info) Description 06/03/2023 Refill [facility] [address] [place], [place] [phone] Nicolle Smith FNP [address] [place] [address] Osteoarthritis of knee, unspecified laterality, unspecified osteoarthritis [...] Description 07/05/2024 2:30 PM EST Office Visit [address] [address] Name, MD Osei [address] [place] [address] 07/14/2024 11:00 AM EST Telemedicine [address] [address] Lisa Tyson, GEETHA documented as of this encounter Visit Diagnoses Diagnosis Osteoarthritis of knee, unspecified laterality, unspecified osteoarthritis type documented in this encounter Additional Health Concerns Assessment Noted Time PHQ-9 Depression Total Score: 11 023 3:34 PM EST documented as of this encounter Care Teams Crepe Sole Scourer Relationship Specialty Start Date End Date NameOsei MD [address] [place] [address] PCP - General Family Medicine 10/04/15 Kirit Galarza FNP [address] [place] [address] Nurse Practitioner Family Medicine 04/20/23 documented as of this encounter
--- OUTSIDE RECORDS SUMMARY | 2024-06-18 15:11 | XMS_ITS | Encounter Summary ---
Author Organization [employer] Address [address] [place] [address], [place] [address] Care Team Providers Care Scientific Software Engineer Name Role Phone Name, Osei AGUSTIN Primary Care Provider [phone] Kirit Galarza Unavailable Unavailable Reason for Visit * Reason Comments Med Refill Encounter Details Date Type Department Care Team (Late st Contact Info) Description 06/03/2023 Refill [facility] [address] [place], [place] [phone] Name, MD Osei [address] [place], [place] [phone] Asthma, unspecified asthma severity, unspecified whether complicated, [...] Description 07/05/2024 2:30 PM EST Office Visit [address] [address] Name, MD Osei [address] [place] [address] 07/14/2024 11:00 AM EST Telemedicine [address] [address] Lisa Tyson, GEETHA documented as of this encounter Visit Diagnoses Diagnosis Asthma, unspecified asthma severity, unspecified whether complicated, unspecified whether persistent documented in this encounter Additional Health Concerns Assessment Noted Time PHQ-9 Depression Total Score: 11 023 3:34 PM EST documented as of this encounter Care Teams Scientific Software Engineer Relationship Specialty Start Date End Date Name, MD Osei [address] [place] [address] PCP - General Family Medicine 10/04/15 Kirit Galarza FNP [address] [place] [address] Nurse Practitioner Family Medicine 04/20/23 documented as of this encounter
--- OUTSIDE RECORDS SUMMARY | 2024-06-18 15:11 | XMS_ITS | Encounter Summary ---
Author Organization [facility] Address [address] [place] [address] Care Team Providers Care Ham Boner Name Role Phone NameOsei MD Primary Care Provider Unavailabl e Maylin Lim DO Primary Care Pro vider Unavailable Name, Osei AGUSTIN Primary Care Provider Unavailabl e Encounter Details Date Type Department Care Team Description 02/08/2010 Hospital Medical Records [address] [place] [address] Harjit Jacques MD Social History Tobacco Use Types Packs/Day [...] on filedocumented in this encounter Care Teams Ham Boner Relationship Specialty Start Date End Date Osei Fernández MD PCP - General 09/08/1997 06/06/15 Maylin Lim DO PCP - General Internal Medicine 06/07/15 10/23/15 Osei Fernández MD PCP - General Internal Medicine 10/24/15 documented as of this encounter
--- OUTSIDE RECORDS SUMMARY | 2024-06-18 15:11 | XMS_ITS | Encounter Summary ---
Author Organization [facility] Address [facility] [place] [address] Care Team Providers Care Clinical Courier Name Role Phone Name, Osei AGUSTIN Primary Care Provider Unavailabl e Maylin Lim DO Primary Care Pro vider Unavailable Name, Osei AGUSTIN Primary Care Provider Unavailabl e Encounter Details Date Type Department Care Team Description 01/30/2010 Folding Machine Setter Report Medical Records [address] [place] [address] Felice Velazco MD Social History Tobacco Use Types Packs/Day Years Used Date Smoking Tobacco: Never Alcohol Use Standard Drinks/Week Comments No 0 (1 standard drink = 0.6 oz pur e alcohol) Sex Assigned at Date Recorded Not on file documented as of this encounter Plan of Treatment Not on file documented as of this encounter Visit Diagnoses Not on filedocumented in this encounter Care Teams Clinical Courier Relationship Specialty Start Date End Date Osei Fernández MD PCP - General 09/08/1997 06/06/15 Maylin Lim DO PCP - General Internal Medicine 06/07/15 10/23/15 Osei Fernández MD PCP - General Internal Medicine 10/24/15 documented as of this encounter
[2024-06-18] MEDS: iohexoL 350 MG/ML 100 ML INFUS..BTL IV (15:48)
[2024-06-18] MEDS: 0.9 % Sodium Chloride 1,000 ML 999 ML IV ×2 (15:54→17:00)
[2024-06-18] MEDS: levoFLOXacin/D5W 500 MG/100 ML PIGGYBACK 100 MG IV (16:05)
[2024-06-18] MEDS: ondansetron HCL 4 MG/2 ML VIAL IVPUSH ×2 (16:08→22:47)
[2024-06-18] MEDS: HYDROmorphone HCl 2 MG/ML VIAL IVPUSH (16:08)
[2024-06-18] MEDS: levoFLOXacin/D5W 250 MG/50 ML PIGGYBACK 50 MG IV (16:19)
[2024-06-18 16:24] LABS: Reflex Lactate? Lactic Acid Added
[2024-06-18 17:04] LABS: Lactic Acid 4.4 mmol/L (0.5-2.0)
[2024-06-18] MEDS: Prochlorperazine Edisylate 10 MG/2 ML VIAL IVPUSH (17:13)
--- NOTE | 2024-06-18 17:13 | PM.CNGS ---
History of Present Illness Consult details Consult date: 06/18/24 Requesting physician: Vangie Crooks Narrative: 59-year-old female patient presenting with complaints of abdominal pain mainly in the right upper quadrant radiating into the back associated with nausea. Patient reports having a bowel movement this morning but felt she could go more. She has a known history of an incisional hernia in the upper abdomen which was present for many years. She underwent a near total colectomy for colon cancer approximately 5 years ago and subsequently underwent chemotherapy. All her treatments and surgery were performed at [facility]. At the time of her colon surgery an attempt was made at repair of the large incisional hernia but the hernia subsequently returned. Workup in the emergency department revealed an elevated WBC and lactate level. Liver functions are elevated with a total bilirubin of 3.5, AST of 209, and alkaline phosphatase of 347. She received IV antibiotics and fluid boluses. CT abdomen and pelvis revealed multiple abdominopelvic ventral hernias with the abdominal wall defect measuring at least 19 cm in diameter. There is some fluid and thickened loops of bowel noted but no evidence of obstruction. There is evidence of hepatic metastatic disease as well. Gallbladder is not well seen but appears contracted. Review of Systems Review of Systems: Yes Unobtainable due to mental condition [facility] Past Medical History Medical History (Updated 06/18/24 @ 17:31 by Bharat Powell MD) HTN (hypertension) Carpal tunnel syndrome of left wrist Asthma Morbid obesity Diabetes Colon cancer Thyroid cancer Surgical History Surgical History (Updated 06/18/24 @ 17:21 by Bharat Powell MD) H/O ventral hernia repair History of removal of laparoscopic gastric banding device Hx of laparoscopic gastric banding H/O colectomy H/O thyroidectomy Social History Social History Household Members: Family Housing: House Patient Tobacco Use Status: Never used Tobacco Advance Directives: No Advance Directives Information Provided: Yes Do you have a plan to hurt others: No Plan service: No Current occupational status: disabled Meds Allergies Allergy/AdvReac Type Severity Reaction Status Date / Time cortisone [CORTISONE] Allergy Mild RASH Verified 06/18/24 14:02 Penicillins [PENICILLINS] Allergy Mild RASH Verified 06/18/24 14:02 bee pollen [BEE STINGS] Allergy Unknown ANAPHYLAXIS Verified 06/18/24 14:02 penicillin V Allergy Unknown Itching Verified 06/18/24 14:02 adhesive Allergy Rash Verified 06/18/24 14:02 Cortisone Allergy Unknown Itching Uncoded 03/29/24 13:11 Active Medications: Current Medications Sodium Chloride (Ns) 1,000 mls @ 999 mls/hr IV .Q1H1M ONE Stop: 06/18/24 17:51 Metronidazole (Flagyl) 500 mg in 100 mls @ 100 mls/hr IV ONCE ONE Stop: 06/18/24 18:07 Home Medications ?Medication ?Instructions ?Recorded ?Confirmed ?Last Taken ?Type cholecalciferol (vitamin D3) 25 1 cap PO DAILY 02/26/21 02/17/23 Unknown History mcg (1,000 unit) capsule fluticasone propionate 220 1 puff inhalation BID 02/26/21 02/17/23 Unknown History mcg/actuation HFA aerosol inhaler (Flovent HFA) levothyroxine 200 mcg tablet 400 mcg PO DAILY 02/26/21 02/17/23 12/23/23 History lidocaine 5 % topical patch 1 patch topical DAILY 02/26/21 02/17/23 Unknown History metformin 500 mg tablet 1 tab PO BID 02/26/21 02/17/23 Unknown History multivitamin with folic acid 400 1 tab PO DAILY 02/26/21 02/17/23 Unknown History mcg tablet (Daily-Loida (with folic acid)) oxycodone-acetaminophen 7.5 mg-325 1 tab PO QID PRN Pain, Moderate 02/26/21 02/17/23 Unknown History mg tablet pantoprazole 20 mg tablet,delayed 1 tab PO DAILY 02/26/21 02/17/23 12/23/23 History release paroxetine HCl 40 mg tablet 1 tab PO DAILY 02/26/21 02/17/23 Unknown History zolpidem 10 mg tablet 1 tab PO BEDTIME PRN Sleep 02/26/21 02/17/23 Unknown History acetic acid 2 % ear solution ml otic (ear) left 02/10/22 02/17/23 Unknown History albuterol sulfate 90 mcg/actuation 2 puff inhalation Q4-6H PRN 02/10/22 02/17/23 Unknown History aerosol inhaler (ProAir HFA) amitriptyline 10 mg tablet 10 mg PO BEDTIME 02/10/22 02/17/23 Unknown History bupropion HCl 150 mg 24 hr tablet, 150 mg PO QAM 02/10/22 02/17/23 Unknown History extended release celecoxib 100 mg capsule 100 mg PO DAILY 02/10/22 02/17/23 Unknown History clindamycin HCl 300 mg capsule 600 mg PO Q8H 02/10/22 02/17/23 Unknown History diclofenac sodium 1 % topical gel 2 g topical BID 02/10/22 02/17/23 Unknown History docusate sodium 100 mg capsule 100 mg PO BID 02/10/22 02/17/23 Unknown History epinephrine 0.3 mg/0.3 mL IM 02/10/22 02/17/23 Unknown History injection, auto-injector fluticasone propionate 50 2 spray intranasal DAILY 02/10/22 02/17/23 Unknown History mcg/actuation nasal spray,suspension gabapentin 300 mg capsule 300 mg PO DAILY PRN pain 02/10/22 02/17/23 12/23/23 History hydrocortisone 1 % topical cream topical DAILY 02/10/22 02/17/23 Unknown History with perineal applicator losartan 25 mg tablet 25 mg PO DAILY 02/10/22 02/17/23 Unknown History metformin 1,000 mg tablet 1,000 mg PO 02/10/22 02/17/23 Unknown History naloxone 4 mg/actuation nasal 0 spray intranasal 02/10/22 02/17/23 Unknown History spray (Narcan) ondansetron HCl 4 mg tablet 4 mg PO TID PRN nausea 02/10/22 02/17/23 Unknown History tizanidine 2 mg tablet 2 mg PO Q12H PRN pain 02/10/22 02/17/23 Unknown History Physical Exam Vital Signs: Vital Signs: Last Vital Signs Temp 97.7 F 06/18/24 16:00 Pulse 82 06/18/24 16:00 Resp 14 06/18/24 16:08 BP 119/69 06/18/24 16:00 Pulse Ox 96 06/18/24 16:00 O2 Del Method Room Air 06/18/24 16:00 BMI result Body Mass Index 54.7 Const: General: no acute distress Nutritional Appearance: obese Orientation/consciousness: patient oriented x3 HEENT: Head: Yes normocephalic and Yes atraumatic Resp: Effort & Inspection: normal respiratory effort, no audible wheezes, no cough and no respiratory distress GI: Other: Large pannus, palpable very large incisional hernia in the upper abdomen, hernia is soft with no overlying skin changes nontender to deep palpation. Tenderness is noted in the right upper quadrant and right flank. No palpable masses appreciated although exam is difficult due to body habitus. No rebound or guarding was appreciated. Skin: General skin exam: no rashes or lesions noted Neuro: General: patient oriented x3 Extrem: General: No clubbing, No cyanosis and Yes edema Results Labs 06/18/24 14:20 06/18/24 14:20 Labs: Abnormal lab results 06/18/24 06/18/24 Range/Units 14:20 16:36 WBC 17.9 H (4.8-10.8) X10*3/uL RBC 4.19 L (4.20-5.50) X10*6/uL Hgb 8.6 L (12.0-16.0) g/dl Hct 28.1 L (37.0-47.0) % MCV 67.1 L (80.0-98.0) fL MCH 20.5 L (27.0-33.0) pg MCHC 30.6 L (31.0-35.0) g/dl RDW 22.6 H (11.0-16.0) % Absolute Nucleated RBC 0.050 H (0.0-0.012) X10*3/uL Nucleated RBC % (auto) 0.3 H (0.0-0.2) /100WBC Neutrophils % (Manual) 76 H (45-73) % Band Neutrophils % 9 H (3-5) % Lymphocytes % (Manual) 4 L (20-40) % Abs Neuts (Manual) 15.2 H (2.0-8.3) X10*3/uL Lymphocytes # (Manual) 0.7 L (1.2-4.9) X10*3/uL Nucleated RBCs 2 H (0-0) /100WBC PT 16.7 H (10.9-12.4) SEC INR 1.4 H (0.9-1.1) BUN 22 H (9-16) mg/dL Random Glucose 124 H (60-115) mg/dL Lactic Acid 4.8 H* 4.4 H* (0.5-2.0) mmol/L Total Bilirubin 3.5 H (0.0-1.0) mg/dL AST 209 H (5-31) U/L ALT 109 H (0-31) U/L Alkaline Phosphatase 347 H (39-117) U/L Albumin 2.9 L (3.5-5.0) g/dL Short CBC 06/18/24 Range/Units 14:20 WBC 17.9 H (4.8-10.8) X10*3/uL Hgb 8.6 L (12.0-16.0) g/dl Hct 28.1 L (37.0-47.0) % Plt Count 363 D (160-400) X10*3/uL BMP 06/18/24 14:20 Sodium 136 Potassium 4.9 D Chloride 102 Carbon Dioxide 22 BUN 22 H Creatinine 0.78 Calcium 8.5 D Liver Function 06/18/24 Range/Units 14:20 Total Bilirubin 3.5 H (0.0-1.0) mg/dL AST 209 H (5-31) U/L ALT 109 H (0-31) U/L Alkaline Phosphatase 347 H (39-117) U/L Albumin 2.9 L (3.5-5.0) g/dL All other labs normal. Imaging Additional studies: CT abdomen: Hepatomegaly ? mets: Large ventral hernia, loss of domaine, bowel anastomosis: Assessment and Plan (1) Incisional hernia: Qualifiers: Obstruction and gangrene presence: without obstruction or gangrene Qualified Code(s): K43.2 - Incisional hernia without obstruction or gangrene Status: Acute (2) Abdominal pain: Qualifiers: Abdominal location: right upper quadrant Qualified Code(s): R10.11 - Right upper quadrant pain Status: Acute Plan 59-year-old female patient with multiple medical problems including morbid obesity, diabetes, asthma, colon cancer, thyroid cancer now presenting with complaints of abdominal pain. Patient describes the pain mainly in the right upper quadrant radiating into the back. She has a known incisional hernia and was evaluated by surgeons at [facility] in 01/04/2024 who requested that she lose 100 lb prior to repair. Examination reveals tenderness to palpation mainly in the right upper quadrant but not the area of her hernia. There is no evidence of strangulation but the hernia is not reducible due to loss of domain. Laboratories revealed an elevated WBC, lactate, and LFTs. Imaging with CT abdomen and pelvis reveals a probable contracted gallbladder but a large liver with possible metastatic disease. Patient has a complicated recurrent incisional hernia which will be best treated at a tertiary care center. It seems her symptoms are more related to the right upper quadrant rather than the actual hernia which is why the liver findings are concerning. All her previous care has been performed at [facility] and comparison imaging is not available other than a CT from 2019. D[address] Pemberton. Patient will need a metastatic workup. Ultrasound to be performed while in the emergency department. Any surgical intervention would require transferred to tertiary care center. Procedures Date of Service Date of Service: 06/18/24
--- NOTE | 2024-06-18 17:25 | PC.NURSE ---
patient initally had only 1 L of NS ordered and then another 3L were ordered but then changed again to another 1 L of NS only.
[2024-06-18] MEDS: HYDROmorphone HCl 1 MG/ML SYRINGE IVPUSH (17:42)
[2024-06-18] MEDS: metroNIDAZOLE/NS 500 MG/100 ML PIGGYBACK 100 MG IV (17:46)
[2024-06-18] MEDS: Lactated Ringers 1,000 ML 999 ML IV (18:13)
[2024-06-18 18:40] LABS: Reflex Lactate? Lactic Acid Added
--- NOTE | 2024-06-18 19:07 | MHC.EDTECH ---
This tech took over care of pt at 1900,rounded and introduced self to pt,vitals taken,T/W attempted to get a urine sample pt is unable to go at this time,RN made aware,family at bedside,call castaneda in reach
[2024-06-18 19:10] LABS: Basophils Absolute Auto 0.1 X10*3/uL (0.0-0.2); Basophils Percent Auto 0.6 % (0-2); Eosinophils Absolute Auto 0.1 X10*3/uL (0.0-0.4); Eosinophils Percent Auto 0.3 % (0-4); Hematocrit 26.4 % (37.0-47.0); Hemoglobin 8.1 g/dl (12.0-16.0); Imm Gran Pct Auto 3.3 % (0.0-0.4); Lymphocytes Absolute Auto 1.6 X10*3/uL (1.2-4.9); Lymphocytes Percent Auto 8.6 % (20-40); MANUAL DIFF FLAG SCAN; Mean Corpuscular HGB Conc 30.7 g/dl (31.0-35.0); Mean Corpuscular Volume 68.4 fL (80.0-98.0); Mean Platelet Volume 11.2 fL (9.4-12.3); Monocytes Absolute Auto 2.4 X10*3/uL (0.1-1.2); Monocytes Percent Auto 13.5 % (2-11); NRBC Pct Auto 0.4 /100WBC (0.0-0.2); Neutrophils Absolute Auto 13.3 x10*3/uL (2.0-8.3); Neutrophils Percent Auto 73.7 % (45-73); Platelet Count 389 X10*3/uL (160-400); Red Blood Count 3.86 X10*6/uL (4.20-5.50); Red Cell Distribution Width 22.7 % (11.0-16.0); SCAN SMEAR FLAG 1
[2024-06-18 19:14] LABS: ~Lactic Acid-LAB USE ONLY 5.6 mmol/L (0.5-2.0)
[2024-06-18] MEDS: Lactated Ringers 1,000 ML 100 ML IVCONT (20:02)
--- NOTE | 2024-06-18 20:13 | MHC.EDTECH ---
Patient got up to commode W/ 2 assist, pt had a steady slow gait,pt urinated 100MLS (orange/cloudy, in color ) urine sample collected and sent to lab,vitals taken BP is low 91/43,rectal temp taken and is 98.3,RN at bedside and is aware pure-wick applied at this time,pt tolerated well
[2024-06-18 20:15] LABS: Appearance Urine Turbid; Color Urine Dark Yellow; Glucose Urine UA Negative (Negative); Leukocyte Esterase Urine Large (3+) (Negative); Nitrite Urine Positive (Negative); Specific Gravity - Urine 1.015 (1.005-1.025); UMIC TRIGGER UACC YES; Urine Blood Negative (Negative); Urine Ketones Negative (Negative); Urine Protein 100 (2+) mg/dL (Neg-Trace)
[2024-06-18 20:27] LABS: D Dimer High Sensitivity 1788 NG/ML
[2024-06-18 20:29] LABS: Bacteria Urine 4+ (None Seen); Squamous Epithelial Cell Urine >20 /HPF (0-2); UACC Culture Trigger YES; WBC Urine >50 /HPF (0-5)
--- NOTE | 2024-06-18 20:32 | P.HPHOSP_ITS ---
History of Present Illness Date of Service: 06/18/24 Chief Complaint: Abdominal pain , nausea A 59 years old lady with PMH of Colon CA post Rt colectomy 5 years ago, follows with [facility] [place], Hx abd hernias , morbid obesity, HTN, DMII, asthma among others who presents to hospital with abdominal pain and inability to tolerate PO. The patient reports having RUQ pain since Wednesday, on\off, no aggrevating factors, associated with nausea and bloating but no vomiting, diarrhea, fever or chills. She has urine frequency and has new swelling in lower extremities with decrease PO intake and feeling unwell. She is under the impression that her cancer is cured with no reported abnormalities on her images or follow up with her primary Oncology at [facility] which she has follow up with on Wednesday. In ED found to have leukocytosis, Lactic acidosis and transaminitis with CT scan concerning for liver metastatsis and cholestiasis but no acute cholecystitis. Seen by surgery team in ER. will be admitted for further work up and management. Review of Systems 2 Review of Systems: No fever, chills but has weakness No chest pain, palpitation increase shortness of breath no coughing RUQ abdominal pain, nausea and bloating frequency urinary symptoms PMFSH Medical History HTN (hypertension) Carpal tunnel syndrome of left wrist Asthma Morbid obesity Diabetes Colon cancer Thyroid cancer Surgical History H/O ventral hernia repair History of removal of laparoscopic gastric banding device Hx of laparoscopic gastric banding H/O colectomy H/O thyroidectomy Social History Household Members: Family Housing: House Patient Tobacco Use Status: Never used Tobacco service: No Current occupational status: disabled Meds Allergies Allergy/AdvReac Type Severity Reaction Status Date / Time cortisone [CORTISONE] Allergy Mild RASH Verified 06/18/24 14:02 Penicillins [PENICILLINS] Allergy Mild RASH Verified 06/18/24 14:02 bee pollen [BEE STINGS] Allergy Unknown ANAPHYLAXIS Verified 06/18/24 14:02 penicillin V Allergy Unknown Itching Verified 06/18/24 14:02 adhesive Allergy Rash Verified 06/18/24 14:02 Cortisone Allergy Unknown Itching Uncoded 03/29/24 13:11 Active Medications: Current Medications Norepinephrine Bitartrate (Levophed) 8 mg in 250 mls @ 0 mls/hr IVCONT .Q0M SYDNEE; Protocol Lactated Ringer's (Lr) 1,000 mls @ 100 mls/hr IVCONT .Q10H SYDNEE Last Admin: 06/18/24 20:02 Dose: 100 mls/hr Home Medications ?Medication ?Instructions ?Recorded ?Confirmed ?Last Taken ?Type cholecalciferol (vitamin D3) 25 1 cap PO DAILY 02/26/21 02/17/23 Unknown History mcg (1,000 unit) capsule fluticasone propionate 220 1 puff inhalation BID 02/26/21 02/17/23 Unknown History mcg/actuation HFA aerosol inhaler (Flovent HFA) levothyroxine 200 mcg tablet 400 mcg PO DAILY 02/26/21 02/17/23 12/23/23 History lidocaine 5 % topical patch 1 patch topical DAILY 02/26/21 02/17/23 Unknown History metformin 500 mg tablet 1 tab PO BID 02/26/21 02/17/23 Unknown History multivitamin with folic acid 400 1 tab PO DAILY 02/26/21 02/17/23 Unknown History mcg tablet (Daily-Loida (with folic acid)) oxycodone-acetaminophen 7.5 mg-325 1 tab PO QID PRN Pain, Moderate 02/26/21 02/17/23 Unknown History mg tablet pantoprazole 20 mg tablet,delayed 1 tab PO DAILY 02/26/21 02/17/23 12/23/23 History release paroxetine HCl 40 mg tablet 1 tab PO DAILY 02/26/21 02/17/23 Unknown History zolpidem 10 mg tablet 1 tab PO BEDTIME PRN Sleep 02/26/21 02/17/23 Unknown History acetic acid 2 % ear solution ml otic (ear) left 02/10/22 02/17/23 Unknown History albuterol sulfate 90 mcg/actuation 2 puff inhalation Q4-6H PRN 02/10/22 02/17/23 Unknown History aerosol inhaler (ProAir HFA) amitriptyline 10 mg tablet 10 mg PO BEDTIME 02/10/22 02/17/23 Unknown History bupropion HCl 150 mg 24 hr tablet, 150 mg PO QAM 02/10/22 02/17/23 Unknown History extended release celecoxib 100 mg capsule 100 mg PO DAILY 02/10/22 02/17/23 Unknown History clindamycin HCl 300 mg capsule 600 mg PO Q8H 02/10/22 02/17/23 Unknown History diclofenac sodium 1 % topical gel 2 g topical BID 02/10/22 02/17/23 Unknown History docusate sodium 100 mg capsule 100 mg PO BID 02/10/22 02/17/23 Unknown History epinephrine 0.3 mg/0.3 mL IM 02/10/22 02/17/23 Unknown History injection, auto-injector fluticasone propionate 50 2 spray intranasal DAILY 02/10/22 02/17/23 Unknown History mcg/actuation nasal spray,suspension gabapentin 300 mg capsule 300 mg PO DAILY PRN pain 02/10/22 02/17/23 12/23/23 History hydrocortisone 1 % topical cream topical DAILY 02/10/22 02/17/23 Unknown History with perineal applicator losartan 25 mg tablet 25 mg PO DAILY 02/10/22 02/17/23 Unknown History metformin 1,000 mg tablet 1,000 mg PO 02/10/22 02/17/23 Unknown History naloxone 4 mg/actuation nasal 0 spray intranasal 02/10/22 02/17/23 Unknown History spray (Narcan) ondansetron HCl 4 mg tablet 4 mg PO TID PRN nausea 02/10/22 02/17/23 Unknown History tizanidine 2 mg tablet 2 mg PO Q12H PRN pain 02/10/22 02/17/23 Unknown History Physical Exam 2 Vital Signs and Narrative: Vital Signs: Last Vital Signs Temp 98.1 F 06/18/24 20:15 Pulse 78 06/18/24 20:15 Resp 32 H 06/18/24 20:15 BP 103/52 L 06/18/24 20:15 Pulse Ox 94 06/18/24 20:15 O2 Del Method Oxymask 06/18/24 20:15 O2 Flow Rate 2 06/18/24 20:15 BMI result Body Mass Index 54.7 Const: Other: Constitutional : interactive, not in distress Cardiovascular : no JVP, +2 bilateral lower extremity edema Respiratory : bilateral chest movement, not in resp distress Gastrointestinal: soft, lax, mild RUQ tenderness with no surgical signs Skin : Warm, Dry Neurological : Alert & oriented , No focal deficit Results Labs 06/18/24 18:45 06/18/24 14:20 Labs: Laboratory Results - last 24 hr 06/18/24 06/18/24 06/18/24 14:20 15:26 16:36 MCV 67.1 L MCH 20.5 L MCHC 30.6 L RDW 22.6 H Plt Count 363 D MPV 11.0 Immature Gran % (Auto) Cancelled Neut % (Auto) Cancelled Lymph % (Auto) Cancelled [place] % (Auto) Cancelled Eos % (Auto) Cancelled Baso % (Auto) Cancelled Lymph # (Auto) Cancelled [place] # (Auto) Cancelled Eos # (Auto) Cancelled Baso # (Auto) Cancelled Abs Immat Gran (auto) Cancelled Absolute Neuts (auto) Cancelled Absolute Nucleated RBC 0.050 H Nucleated RBC % (auto) 0.3 H Neutrophils % (Manual) 76 H Band Neutrophils % 9 H Lymphocytes % (Manual) 4 L Monocytes % (Manual) 3 Eosinophils % (Manual) 1 Metamyelocytes % 5 Myelocytes % 2 Abs Neuts (Manual) 15.2 H Lymphocytes # (Manual) 0.7 L Monocytes # (Manual) 0.5 Eosinophils # (Manual) 0.2 Metamyelocytes # 0.9 Myelocytes # 0.4 Nucleated RBCs 2 H Platelet Estimate NORMAL Plt Morphology Comment NORMAL RBC Morphology NOTED Polychromasia 1+ (0-2) Hypochromasia 1+ (5-14) Microcytosis 1+ (5-14) Smear Tech's Comments MANUAL DIFF PT 16.7 H INR 1.4 H APTT 27.7 D-Dimer High Sensitivty 1788 Anion Gap 17 Estim Creat Clear Calc 116.0 Estimated GFR > 60 Random Glucose 124 H Lactic Acid 4.8 H* 4.4 H* Lactic Acid F/U @ 2Hr Calcium 8.5 D Total Bilirubin 3.5 H AST 209 H ALT 109 H Alkaline Phosphatase 347 H Total Protein 6.9 Albumin 2.9 L Lipase 19 Urine Color Urine Appearance Urine pH Ur Specific [place] Urine Protein Urine Glucose (UA) Urine Ketones Urine Blood Urine Nitrite Ur Leukocyte Esterase Urine RBC Urine WBC Ur Squamous Epith Cells Urine Bacteria Hyaline Casts Blood Type B Positive Antibody Screen NEGATIVE 06/18/24 06/18/24 18:45 20:10 MCV 68.4 L MCH 21.0 L MCHC 30.7 L RDW 22.7 H Plt Count 389 MPV 11.2 Immature Gran % (Auto) 3.3 H Neut % (Auto) 73.7 H Lymph % (Auto) 8.6 L [place] % (Auto) 13.5 H Eos % (Auto) 0.3 Baso % (Auto) 0.6 Lymph # (Auto) 1.6 [place] # (Auto) 2.4 H Eos # (Auto) 0.1 Baso # (Auto) 0.1 Abs Immat Gran (auto) 0.60 H Absolute Neuts (auto) 13.3 H Absolute Nucleated RBC 0.070 H Nucleated RBC % (auto) 0.4 H Neutrophils % (Manual) Band Neutrophils % Lymphocytes % (Manual) Monocytes % (Manual) Eosinophils % (Manual) Metamyelocytes % Myelocytes % Abs Neuts (Manual) Lymphocytes # (Manual) Monocytes # (Manual) Eosinophils # (Manual) Metamyelocytes # Myelocytes # Nucleated RBCs Platelet Estimate Plt Morphology Comment RBC Morphology Polychromasia Hypochromasia Microcytosis Smear Tech's Comments PT INR APTT D-Dimer High Sensitivty Anion Gap Estim Creat Clear Calc Estimated GFR Random Glucose Lactic Acid Lactic Acid F/U @ 2Hr 5.6 H* Calcium Total Bilirubin AST ALT Alkaline Phosphatase Total Protein Albumin Lipase Urine Color Dark Yellow Urine Appearance Turbid Urine pH 5.0 Ur Specific [place] 1.015 Urine Protein 100 (2+) H Urine Glucose (UA) Negative Urine Ketones Negative Urine Blood Negative Urine Nitrite Positive H Ur Leukocyte Esterase Large (3+) H Urine RBC 3-5 H Urine WBC >50 H Ur Squamous Epith Cells >20 Urine Bacteria 4+ Hyaline Casts 3-5 Blood Type Antibody Screen Assessment and Plan (1) Intractable nausea and vomiting: Status: Acute (2) Elevated WBC count: Qualifiers: Leukocytosis type: unspecified Qualified Code(s): D72.829 - Elevated white blood cell count, unspecified Status: Acute (3) Acidosis, lactic: Status: Acute (4) Abdominal pain: Qualifiers: Abdominal location: right upper quadrant Qualified Code(s): R10.11 - Right upper quadrant pain Status: Acute (5) UTI (urinary tract infection): Status: Acute (6) Sepsis: Status: Acute Plan A 59 years old lady with PMH of Colon CA post Rt colectomy 5 years ago, follows with [facility] [place]ology, Hx abd hernias , morbid obesity, HTN, DMII, asthma among others who presents to hospital with abdominal pain and inability to tolerate PO. sepsis 2/2 UTI pending cultures IV Levaquin for now Abdominal pain with Transaminitis US negative for acute cholecystitis CT scan as reported, likely liver metastatic disease elevated LDH, ALP and GGT; likely metastasis compressing CBD Surgery input appreciated, unlikely SBO or hernia related pain will need outpatient follow up with her oncologist for palliative chemo? Morphine for pain now start diet , antiemitic as needed follow LFT Lactic acidosis not due to severe sepsis likely from MEtformin and liver disease\mets received IVF monitor as needed Hypotension not due to severe sepsis, likely related to BP medicaitons and liver disease monitor Iron def. Anemia check iron profile start iron supplement Pending med rec DVT PPX SCDs for possible blood loss anemia The patient will need 2 overnight hospital stay for IV antibiotics pending cultures, monitoring liver function and controling pain Quality Stroke Does the patient have a stroke diagnosis?: No VTE Prior VTE?: No VTE Risk Level:: Medical - moderate - high VTE Device Contraindication: N/A - Device Ordered VTE Drug Contraindication: Treatment Not Indicated
[2024-06-18 20:35] LABS: COVID-19 Test Negative (Negative); IDNOW Serial# 58CA691E
[2024-06-18 20:39] LABS: Gamma Glutamyl Transpeptidase 594 U/L (7-33); Lactate Dehydrogenase 399 U/L (122-220)
[2024-06-18 20:49] LABS: Iron 16 mcg/dL (30-160); Percent Iron Saturation 8 % (15-50); Total Iron Binding Capacity 212 mcg/dL (228-428); Unsaturated Iron Binding 196 ug/dL
[2024-06-18 20:49] LABS: Reflex Lactate? 2 Y
--- NOTE | 2024-06-18 21:10 | PC.NURSE ---
this RN assumed care of pt at 1900. sepsis sheet completed and filled out. vitals updated. pt now receiving LR at 100ml/hr. new iv placed in R hand #20g as others were very positional. pt to be admitted to hospital for further management. purewick in place. pt on monitor. resting comfortably, offers no current complaints. call castaneda within reach, plan of care ongoing.
[2024-06-18 21:22] LABS: Cancel Lactic Acid Canceled
[2024-06-18 21:38] LABS: ~Lactic Acid-LAB USE ONLY 4.7 mmol/L (0.5-2.0)
[2024-06-18] MEDS: Morphine Sulfate 4 MG/ML CARTRIDGE 2 MG IVPUSH (22:43)
[2024-06-19] VITALS (7 sets, daily range): BP systolic 93–115; BP diastolic 48–63; PULSE 72–78; RESP 16–24; TEMP 36.2–36.7; O2SAT 92–98; BMI 58.7
[2024-06-19] MEDS: HYDROmorphone HCl 1 MG/ML SYRINGE IVPUSH ×5 (00:14→20:20)
[2024-06-19 05:00] LABS: Basophils Absolute Auto 0.1 X10*3/uL (0.0-0.2); Basophils Percent Auto 0.4 % (0-2); Eosinophils Absolute Auto 0.1 X10*3/uL (0.0-0.4); Eosinophils Percent Auto 0.3 % (0-4); Hematocrit 25.1 % (37.0-47.0); Hemoglobin 7.6 g/dl (12.0-16.0); Lymphocytes Absolute Auto 1.7 X10*3/uL (1.2-4.9); Lymphocytes Percent Auto 7.6 % (20-40); MANUAL DIFF FLAG SCAN; Mean Corpuscular HGB Conc 30.3 g/dl (31.0-35.0); Mean Corpuscular Hemoglobin 20.6 pg (27.0-33.0); Monocytes Absolute Auto 2.8 X10*3/uL (0.1-1.2); Monocytes Percent Auto 12.3 % (2-11); NRBC Pct Auto 0.4 /100WBC (0.0-0.2); Neutrophils Absolute Auto 16.9 x10*3/uL (2.0-8.3); Neutrophils Percent Auto 75.4 % (45-73); Platelet Count 398 X10*3/uL (160-400); Red Blood Count 3.69 X10*6/uL (4.20-5.50); Red Cell Distribution Width 22.5 % (11.0-16.0); SCAN SMEAR FLAG 1; White Blood Count 22.4 X10*3/uL (4.8-10.8)
[2024-06-19 05:18] LABS: SLIDE REVIEW VERIFIED
[2024-06-19 05:22] LABS: Alanine Aminotransferase 99 U/L (0-31); Albumin Level 2.9 g/dL (3.5-5.0); Alkaline Phosphatase 327 U/L (39-117); Anion Gap 20 (12-20); Aspartate Amino Transferase 217 U/L (5-31); Bilirubin Total 3.5 mg/dL (0.0-1.0); Blood Urea Nitrogen 30 mg/dL (9-16); Calcium 8.1 mg/dL (8.4-10.2); Carbon Dioxide 19 mmol/L (22-29); Chloride 103 mmol/L (96-108); Estimated Glomerular Filt Rate 28; Glucose Random 89 mg/dL (60-115); Potassium 5.7 mmol/L (3.3-5.1); Sodium 136 mmol/L (135-145); Total Protein 6.8 g/dL (6.5-8.0)
[2024-06-19] MEDS: Lactated Ringers 1,000 ML 100 ML IVCONT (06:33)
--- NOTE | 2024-06-19 07:11 | P.PNIM_ITS ---
Subjective Subjective Date of Service: 06/19/24 Interval History: f/u on sepsis d/t uti, elevated lfts concern for metastatic disease She is overall feeling better today Physical Exam 2 Vital Signs: Vital Signs: Last Vital Signs Temp 98.1 F 06/19/24 03:44 Pulse 77 06/19/24 03:44 Resp 24 H 06/19/24 03:44 BP 110/57 L 06/19/24 03:44 Pulse Ox 98 06/19/24 03:44 O2 Del Method Oxymask 06/19/24 03:44 O2 Flow Rate 2 06/19/24 03:44 BMI result Body Mass Index 54.7 Const: Other: General: AO X 3, no acute distress Resp: CTA bilateral CVS: S1,S2,RRR GI: +BS, NT, no distention Skin: No rash Neuro: motor grossly intact Psych: appropriate affect Objective Data Active Medications Acetaminophen (Acetaminophen 325 Mg Tablet) 650 mg PO Q6H PRN PRN Reason: Pain, Mild 1-3,fever,headache Calcium Carbonate (Calcium Carbonate 750 Mg Tab.Chew) 750 mg PO Q4H PRN PRN Reason: Heartburn Hydromorphone HCl (Hydromorphone Hcl 1 Mg/Ml Syringe) 1 mg IVPUSH Q4H PRN; Protocol PRN Reason: Pain, Severe (Pain Scale 7-10) Last Admin: 06/19/24 04:29 Dose: 1 mg Documented By: CARLYLE Lactated Ringer's (Lr) 1,000 mls @ 100 mls/hr IVCONT .Q10H [facility] Last Admin: 06/19/24 06:33 Dose: 100 mls/hr Documented By: CASSANDRA Levofloxacin (Levaquin) 500 mg in 100 mls @ 100 mls/hr IV Q24H [facility]EE Levofloxacin (Levaquin) 250 mg in 50 mls @ 50 mls/hr IV Q24H [facility] Insulin Human Lispro (Insulin Lispro 100 Unit/Ml 3 Ml Vial) 0 unit SUBCUT QIDACHS [facility]; Protocol Magnesium Hydroxide (Milk Of Magnesia 30 Ml Oral.Susp) 30 ml PO DAILY PRN PRN Reason: Constipation Melatonin (Melatonin 3 Mg Tablet) 6 mg PO BEDTIME PRN PRN Reason: Insomnia Ondansetron HCl (Ondansetron Hcl 4 Mg/2 Ml Vial) 4 mg IVPUSH Q8H PRN PRN Reason: Nausea and Vomiting Last Admin: 06/18/24 22:47 Dose: 4 mg Documented By: CARLYLE Sodium Chloride (0.9 % Sodium Chloride Flush 3 Ml Syringe) 3 ml IVFLUSH QSHIFT [facility] Last Admin: 06/19/24 00:16 Dose: Not Given Documented By: CASSANDRA Non-Admin Reason: Previously Administered Labs 06/19/24 04:49 06/19/24 09:29 Labs: Laboratory Results - last 24 hr 06/18/24 06/18/24 06/18/24 14:20 15:26 16:36 MCV 67.1 L MCH 20.5 L MCHC 30.6 L RDW 22.6 H Plt Count 363 D MPV 11.0 Immature Gran % (Auto) Cancelled Neut % (Auto) Cancelled Lymph % (Auto) Cancelled [place] % (Auto) Cancelled Eos % (Auto) Cancelled Baso % (Auto) Cancelled Lymph # (Auto) Cancelled [place] # (Auto) Cancelled Eos # (Auto) Cancelled Baso # (Auto) Cancelled Abs Immat Gran (auto) Cancelled Absolute Neuts (auto) Cancelled Absolute Nucleated RBC 0.050 H Nucleated RBC % (auto) 0.3 H Neutrophils % (Manual) 76 H Band Neutrophils % 9 H Lymphocytes % (Manual) 4 L Monocytes % (Manual) 3 Eosinophils % (Manual) 1 Metamyelocytes % 5 Myelocytes % 2 Abs Neuts (Manual) 15.2 H Lymphocytes # (Manual) 0.7 L Monocytes # (Manual) 0.5 Eosinophils # (Manual) 0.2 Metamyelocytes # 0.9 Myelocytes # 0.4 Nucleated RBCs 2 H Platelet Estimate NORMAL Plt Morphology Comment NORMAL RBC Morphology NOTED Polychromasia 1+ (0-2) Hypochromasia 1+ (5-14) Microcytosis 1+ (5-14) Smear Tech's Comments MANUAL DIFF PT 16.7 H INR 1.4 H APTT 27.7 D-Dimer High Sensitivty 1788 Anion Gap 17 Estim Creat Clear Calc 116.0 Estimated GFR > 60 Random Glucose 124 H Lactic Acid 4.8 H* 4.4 H* Lactic Acid F/U @ 2Hr Lactic Acid F/U @ 4Hr Calcium 8.5 D Iron 16 L TIBC 212 L % Saturation 8 L Unsat Iron Binding 196 Total Bilirubin 3.5 H GGT 594 H AST 209 H ALT 109 H Alkaline Phosphatase 347 H Lactate Dehydrogenase 399 H Total Protein 6.9 Albumin 2.9 L Lipase 19 Urine Color Urine Appearance Urine pH Ur Specific [place] Urine Protein Urine Glucose (UA) Urine Ketones Urine Blood Urine Nitrite Ur Leukocyte Esterase Urine RBC Urine WBC Ur Squamous Epith Cells Urine Bacteria Hyaline Casts COVID-19 ([facility]I) COVID-19 Clin Com Blood Type B Positive Antibody Screen NEGATIVE 06/18/24 06/18/24 06/18/24 18:45 19:53 20:10 MCV 68.4 L MCH 21.0 L MCHC 30.7 L RDW 22.7 H Plt Count 389 MPV 11.2 Immature Gran % (Auto) 3.3 H Neut % (Auto) 73.7 H Lymph % (Auto) 8.6 L [place] % (Auto) 13.5 H Eos % (Auto) 0.3 Baso % (Auto) 0.6 Lymph # (Auto) 1.6 [place] # (Auto) 2.4 H Eos # (Auto) 0.1 Baso # (Auto) 0.1 Abs Immat Gran (auto) 0.60 H Absolute Neuts (auto) 13.3 H Absolute Nucleated RBC 0.070 H Nucleated RBC % (auto) 0.4 H Neutrophils % (Manual) Band Neutrophils % Lymphocytes % (Manual) Monocytes % (Manual) Eosinophils % (Manual) Metamyelocytes % Myelocytes % Abs Neuts (Manual) Lymphocytes # (Manual) Monocytes # (Manual) Eosinophils # (Manual) Metamyelocytes # Myelocytes # Nucleated RBCs Platelet Estimate Plt Morphology Comment RBC Morphology Polychromasia Hypochromasia Microcytosis Smear Tech's Comments PT INR APTT D-Dimer High Sensitivty Anion Gap Estim Creat Clear Calc Estimated GFR Random Glucose Lactic Acid Lactic Acid F/U @ 2Hr 5.6 H* Lactic Acid F/U @ 4Hr Calcium Iron TIBC % Saturation Unsat Iron Binding Total Bilirubin GGT AST ALT Alkaline Phosphatase Lactate Dehydrogenase Total Protein Albumin Lipase Urine Color Dark Yellow Urine Appearance Turbid Urine pH 5.0 Ur Specific [place] 1.015 Urine Protein 100 (2+) H Urine Glucose (UA) Negative Urine Ketones Negative Urine Blood Negative Urine Nitrite Positive H Ur Leukocyte Esterase Large (3+) H Urine RBC 3-5 H Urine WBC >50 H Ur Squamous Epith Cells >20 Urine Bacteria 4+ Hyaline Casts 3-5 COVID-19 ([facility]IRALI) Negative COVID-19 Clin Com See Note Blood Type Antibody Screen 06/18/24 06/19/24 21:09 04:49 MCV 68.0 L MCH 20.6 L MCHC 30.3 L RDW 22.5 H Plt Count 398 MPV 11.0 Immature Gran % (Auto) 4.0 H Neut % (Auto) 75.4 H Lymph % (Auto) 7.6 L [place] % (Auto) 12.3 H Eos % (Auto) 0.3 Baso % (Auto) 0.4 Lymph # (Auto) 1.7 [place] # (Auto) 2.8 H Eos # (Auto) 0.1 Baso # (Auto) 0.1 Abs Immat Gran (auto) 0.90 H Absolute Neuts (auto) 16.9 H Absolute Nucleated RBC 0.090 H Nucleated RBC % (auto) 0.4 H Neutrophils % (Manual) Band Neutrophils % Lymphocytes % (Manual) Monocytes % (Manual) Eosinophils % (Manual) Metamyelocytes % Myelocytes % Abs Neuts (Manual) Lymphocytes # (Manual) Monocytes # (Manual) Eosinophils # (Manual) Metamyelocytes # Myelocytes # Nucleated RBCs Platelet Estimate Plt Morphology Comment RBC Morphology Polychromasia Hypochromasia Microcytosis Smear Tech's Comments VERIFIED PT INR APTT D-Dimer High Sensitivty Anion Gap 20 Estim Creat Clear Calc 50.0 Estimated GFR 28 Random Glucose 89 Lactic Acid Lactic Acid F/U @ 2Hr Lactic Acid F/U @ 4Hr 4.7 H* Calcium 8.1 L Iron TIBC % Saturation Unsat Iron Binding Total Bilirubin 3.5 H GGT AST 217 H ALT 99 H Alkaline Phosphatase 327 H Lactate Dehydrogenase Total Protein 6.8 Albumin 2.9 L Lipase Urine Color Urine Appearance Urine pH Ur Specific [place] Urine Protein Urine Glucose (UA) Urine Ketones Urine Blood Urine Nitrite Ur Leukocyte Esterase Urine RBC Urine WBC Ur Squamous Epith Cells Urine Bacteria Hyaline Casts COVID-19 ([facility]) COVID-19 Clin Com Blood Type Antibody Screen Assessment and Plan (1) Sepsis: Status: Acute (2) UTI (urinary tract infection): Status: Acute Plan A 59/F w/ PMH of Colon CA post Rt colectomy 5 years ago, follows with [facility] oncology, Hx abd hernias , morbid obesity, HTN, DMII, asthma among others who presents to hospital with abdominal pain and inability to tolerate PO and found to have sepsis d/t uti sepsis 2/2 UTI pending cultures IV Levaquin for now started 06/18/24 JAYSON--likey ATN from renal hypoperfusion from hypotension IVF and monitor renal consult if not improving Hyperkalemia d/t renal failure lokelma Abdominal pain with Transaminitis US negative for acute cholecystitis CT scan as reported, likely liver metastatic disease elevated LDH, ALP and GGT; likely metastasis compressing CBD Surgery input appreciated, unlikely SBO or hernia related pain will need outpatient follow up with her oncologist for palliative chemo? Morphine for pain now start diet , antiemitic as needed follow LFT Lactic acidosis not due to severe sepsis likely from MEtformin and liver disease\mets received IVF monitor as needed Hypotension--not due to severe sepsis, likely related to BP medicaitons and liver disease resolved, monitor Iron def. Anemia check iron profile start iron supplement DVT PPX SCDs for possible blood loss anemia The patient will need 2 overnight hospital stay for IV antibiotics pending cultures, monitoring liver function and controling pain Quality Stroke Does the patient have a stroke diagnosis?: No VTE Prior VTE?: No VTE Risk Level:: Medical - moderate - high VTE Device Contraindication: N/A - Device Ordered VTE Drug Contraindication: Treatment Not Indicated
[2024-06-19 07:40] LABS: Glucose, Whole Blood 94 mg/dL (60-115)
[2024-06-19] MEDS: ondansetron HCL 4 MG/2 ML VIAL IVPUSH ×2 (08:09→17:52)
[2024-06-19] MEDS: Sodium Zirconium Cyclosilicate 5 GM POWD.PACK PO (08:10)
--- NOTE | 2024-06-19 08:35 | PC.NURSE ---
Pt assisted to sitting on the edge of the bed per her request. medicated per order. spoke to patient with [employer] to update the plan of care. requested hospital bed for patient comfort.
--- NOTE | 2024-06-19 10:21 | PHA.MEDREC ---
Addendum entered by Sulema Juarez RPh 06/19/24 10:46: reviewed by [facility]. up to 3 times a week Original Note: Pharmacy Consult ? Medication Reconciliation Pharmacy has completed the medication reconciliation. Spoke to patient to confirm med list. Patient states she is no longer taking Acetic acid 2 % Ear solution, Amitriptyline 20 mg, Vitamin D3, Hydrrocortisone 1% cream, Metformin 1,000 mg, Sertraline 150 mg, and Tizanidine 2 mg. Patient confirm Trulicity 0.75 mg is every Wednesday, last dose was 06/10/24. Patient says she should be taking Synjardy RX 12.5 mg-1,000 mg daily, however patient only takes maybe up to 3 times a day. Patient states she last took her medications 06/17/24.
[2024-06-19 10:22] LABS: Anion Gap 19 (12-20); Blood Urea Nitrogen 32 mg/dL (9-16); Carbon Dioxide 21 mmol/L (22-29); Chloride 100 mmol/L (96-108); Creatinine Clr Calc Pharmacy 40.5; Estimated Glomerular Filt Rate 22; Glucose Fasting 105 mg/dL (60-99); Potassium 5.8 mmol/L (3.3-5.1); Sodium 134 mmol/L (135-145)
[2024-06-19 11:22] LABS: Glucose, Whole Blood 102 mg/dL (60-115)
[2024-06-19] MEDS: Lactated Ringers 1,000 ML 999 ML IV (11:25)
[2024-06-19] MEDS: Levothyroxine Sodium 200 MCG TABLET 400 MCG PO (11:40)
[2024-06-19] MEDS: Ferrous Sulfate 324 MG TABLET.DR PO (11:40)
[2024-06-19] MEDS: Sodium Zirconium Cyclosilicate 10 GM POWD.PACK PO (11:41)
[2024-06-19] MEDS: oxyCODONE HCl Immed Release 15 MG TABLET 7.5 MG PO ×2 (11:52→17:53)
[2024-06-19] MEDS: Acetaminophen 325 MG TABLET 650 MG PO (11:53)
[2024-06-19] MEDS: 0.9 % Sodium Chloride 1,000 ML 125 ML IVCONT ×2 (13:13→20:24)
--- NOTE | 2024-06-19 14:00 | MHC.CM.PN ---
pt lives with son who is her emt/paramedic she has her own ride home dc plan is for home
[2024-06-19] MEDS: Gabapentin 400 MG CAPSULE PO ×2 (14:38→20:22)
--- NOTE | 2024-06-19 15:18 | PM.PNGS ---
Subjective Subjective Date of Service: 06/19/24 Interval history: Patient resting comfortably, reports feeling improved this today with less abdominal pain Physical Exam Vital Signs: Vital Signs: Last Vital Signs Temp 97.2 F 06/19/24 11:22 Pulse 72 06/19/24 11:22 Resp 18 06/19/24 11:22 BP 96/53 L 06/19/24 11:22 Pulse Ox 96 06/19/24 11:22 O2 Del Method Room Air 06/19/24 11:22 O2 Flow Rate 2 06/19/24 08:29 BMI result Body Mass Index 58.7 Const: General: no acute distress Nutritional Appearance: obese Orientation/consciousness: patient oriented x3 Resp: Effort & Inspection: normal respiratory effort GI: Inspection: No Abdominal wall edema, Yes obesity and Yes visible herniation Palpation (GI): Soft to palpation, Tenderness to palpation present (GI) in the RUQ (Minimal tenderness); with no rebound tenderness, no guarding and not rigid Skin: Other: Warm and dry Neuro: General: patient oriented x3 Objective Data Active Medications Acetaminophen (Acetaminophen 325 Mg Tablet) 650 mg PO Q6H PRN PRN Reason: Pain, Mild 1-3,fever,headache Last Admin: 06/19/24 11:53 Dose: 650 mg Documented By: DESI Albuterol Sulfate (Albuterol Sulfate 90 Mcg 8 Gm Inhaler) 2 puff INHALE Q4H PRN PRN Reason: Shortness Of Breath Or Wheezing Calcium Carbonate (Calcium Carbonate 750 Mg Tab.Chew) 750 mg PO Q4H PRN PRN Reason: Heartburn Docusate Sodium (Docusate Sodium 100 Mg Capsule) 100 mg PO BID [facility] Empagliflozin (Empagliflozin 25 Mg Tablet) 12.5 mg PO DAILY [facility] Ferrous Sulfate (Ferrous Sulfate 324 Mg Tablet.Dr) 324 mg PO DAILY [facility] Last Admin: 06/19/24 11:40 Dose: 324 mg Documented By: COLTEN Fluticasone Propionate (Fluticasone Propionate Nasal 16 Gm [place]) 2 spray NOSTRIL-B DAILY PRN PRN Reason: Allergy Symptoms Gabapentin (Gabapentin 400 Mg Capsule) 400 mg PO TID [facility] Last Admin: 06/19/24 14:38 Dose: 400 mg Documented By: COLTEN Hydromorphone HCl (Hydromorphone Hcl 1 Mg/Ml Syringe) 1 mg IVPUSH Q4H PRN; Protocol PRN Reason: Pain, Severe (Pain Scale 7-10) Last Admin: 06/19/24 08:53 Dose: 1 mg Documented By: MIRA Hydroxyzine HCl (Hydroxyzine Hcl 10 Mg Tablet) 10 mg PO Q6H PRN PRN Reason: anxiety Levofloxacin (Levaquin) 500 mg in 100 mls @ 100 mls/hr IV Q24H SYDNEE Levofloxacin (Levaquin) 250 mg in 50 mls @ 50 mls/hr IV Q24H [facility] Sodium Chloride (Ns) 1,000 mls @ 125 mls/hr IVCONT .Q8H [facility] Last Admin: 06/19/24 13:13 Dose: 125 mls/hr Documented By: COLTEN Insulin Human Lispro (Insulin Lispro 100 Unit/Ml 3 Ml Vial) 0 unit SUBCUT QIDACHS [facility]; Protocol Last Admin: 06/19/24 13:03 Dose: Not Given Documented By: COLTEN Non-Admin Reason: No Insulin Coverage Lactulose (Lactulose 20 Gm/30 Ml Solution) 10 gm PO DAILY [facility] Levothyroxine Sodium (Levothyroxine Sodium 200 Mcg Tablet) 400 mcg PO DAILY@0600 [facility] Last Admin: 06/19/24 11:40 Dose: 400 mcg Documented By: COLTEN Lidocaine (Lidocaine 4 % Patch Adh..Patch) 1 patch TRANSDERMA DAILY PRN PRN Reason: Pain Magnesium Hydroxide (Milk Of Magnesia 30 Ml Oral.Susp) 30 ml PO DAILY PRN PRN Reason: Constipation Melatonin (Melatonin 3 Mg Tablet) 6 mg PO BEDTIME PRN PRN Reason: Insomnia Metformin HCl (Metformin Hcl Er 500 Mg Tab.Er.24h) 1,000 mg PO DAILY [facility] Multivitamins/Vitamin C (Multivitamin Tablet) 1 tab PO DAILY [facility] Naloxone HCl (Naloxone Hcl Nasal 4 Mg [place]) 4 mg NOSTRILALT DAILY PRN PRN Reason: opioid overdose Omeprazole (Omeprazole 20 Mg Capsule.Dr) 20 mg PO DAILY@0630 [facility] Ondansetron HCl (Ondansetron Hcl 4 Mg/2 Ml Vial) 4 mg IVPUSH Q8H PRN PRN Reason: Nausea and Vomiting Last Admin: 06/19/24 08:09 Dose: 4 mg Documented By: MIRA Oxycodone HCl (Oxycodone Hcl Immed Release 15 Mg Tablet) 7.5 mg PO QID PRN PRN Reason: Pain, Moderate Last Admin: 06/19/24 11:52 Dose: 7.5 mg Documented By: DESI Paroxetine HCl (Paroxetine Hcl 40 Mg Tablet) 40 mg PO DAILY [facility] Sodium Chloride (0.9 % Sodium Chloride Flush 3 Ml Syringe) 3 ml IVFLUSH QSHIFT [facility] Last Admin: 06/19/24 08:18 Dose: Not Given Documented By: MIRA Non-Admin Reason: IV Running Zolpidem Tartrate (Zolpidem Tartrate 5 Mg Tablet) 10 mg PO BEDTIME PRN PRN Reason: Sleep Labs 06/19/24 04:49 06/19/24 09:29 Labs: Laboratory Results - last 24 hr 06/18/24 06/18/24 06/18/24 14:20 15:26 16:36 MCV MCH MCHC RDW Plt Count MPV Immature Gran % (Auto) Neut % (Auto) Lymph % (Auto) [place] % (Auto) Eos % (Auto) Baso % (Auto) Lymph # (Auto) [place] # (Auto) Eos # (Auto) Baso # (Auto) Abs Immat Gran (auto) Absolute Neuts (auto) Absolute Nucleated RBC Nucleated RBC % (auto) Smear Tech's Comments D-Dimer High Sensitivty 1788 Anion Gap Estim Creat Clear Calc Estimated GFR POC Glucose Random Glucose Fasting Glucose Lactic Acid 4.4 H* Lactic Acid F/U @ 2Hr Lactic Acid F/U @ 4Hr Calcium Iron 16 L TIBC 212 L % Saturation 8 L Unsat Iron Binding 196 Total Bilirubin GGT 594 H AST ALT Alkaline Phosphatase Lactate Dehydrogenase 399 H Total Protein Albumin Urine Color Urine Appearance Urine pH Ur Specific [place] Urine Protein Urine Glucose (UA) Urine Ketones Urine Blood Urine Nitrite Ur Leukocyte Esterase Urine RBC Urine WBC Ur Squamous Epith Cells Urine Bacteria Hyaline Casts COVID-19 ([facility]) COVID-19 Clin Com Blood Type B Positive Antibody Screen NEGATIVE 06/18/24 06/18/24 06/18/24 18:45 19:53 20:10 MCV 68.4 L MCH 21.0 L MCHC 30.7 L RDW 22.7 H Plt Count 389 MPV 11.2 Immature Gran % (Auto) 3.3 H Neut % (Auto) 73.7 H Lymph % (Auto) 8.6 L [place] % (Auto) 13.5 H Eos % (Auto) 0.3 Baso % (Auto) 0.6 Lymph # (Auto) 1.6 [place] # (Auto) 2.4 H Eos # (Auto) 0.1 Baso # (Auto) 0.1 Abs Immat Gran (auto) 0.60 H Absolute Neuts (auto) 13.3 H Absolute Nucleated RBC 0.070 H Nucleated RBC % (auto) 0.4 H Smear Tech's Comments D-Dimer High Sensitivty Anion Gap Estim Creat Clear Calc Estimated GFR POC Glucose Random Glucose Fasting Glucose Lactic Acid Lactic Acid F/U @ 2Hr 5.6 H* Lactic Acid F/U @ 4Hr Calcium Iron TIBC % Saturation Unsat Iron Binding Total Bilirubin GGT AST ALT Alkaline Phosphatase Lactate Dehydrogenase Total Protein Albumin Urine Color Dark Yellow Urine Appearance Turbid Urine pH 5.0 Ur Specific [place] 1.015 Urine Protein 100 (2+) H Urine Glucose (UA) Negative Urine Ketones Negative Urine Blood Negative Urine Nitrite Positive H Ur Leukocyte Esterase Large (3+) H Urine RBC 3-5 H Urine WBC >50 H Ur Squamous Epith Cells >20 Urine Bacteria 4+ Hyaline Casts 3-5 COVID-19 (NIRALI) Negative COVID-19 Clin Com See Note Blood Type Antibody Screen 06/18/24 06/19/24 06/19/24 21:09 04:49 07:27 MCV 68.0 L MCH 20.6 L MCHC 30.3 L RDW 22.5 H Plt Count 398 MPV 11.0 Immature Gran % (Auto) 4.0 H Neut % (Auto) 75.4 H Lymph % (Auto) 7.6 L [place] % (Auto) 12.3 H Eos % (Auto) 0.3 Baso % (Auto) 0.4 Lymph # (Auto) 1.7 [place] # (Auto) 2.8 H Eos # (Auto) 0.1 Baso # (Auto) 0.1 Abs Immat Gran (auto) 0.90 H Absolute Neuts (auto) 16.9 H Absolute Nucleated RBC 0.090 H Nucleated RBC % (auto) 0.4 H Smear Tech's Comments VERIFIED D-Dimer High Sensitivty Anion Gap 20 Estim Creat Clear Calc 50.0 Estimated GFR 28 POC Glucose 94 Random Glucose 89 Fasting Glucose Lactic Acid Lactic Acid F/U @ 2Hr Lactic Acid F/U @ 4Hr 4.7 H* Calcium 8.1 L Iron TIBC % Saturation Unsat Iron Binding Total Bilirubin 3.5 H GGT AST 217 H ALT 99 H Alkaline Phosphatase 327 H Lactate Dehydrogenase Total Protein 6.8 Albumin 2.9 L Urine Color Urine Appearance Urine pH Ur Specific [place] Urine Protein Urine Glucose (UA) Urine Ketones Urine Blood Urine Nitrite Ur Leukocyte Esterase Urine RBC Urine WBC Ur Squamous Epith Cells Urine Bacteria Hyaline Casts COVID-19 (NIRALI) COVID-19 ADTELLIGENCE Com Blood Type Antibody Screen 06/19/24 06/19/24 09:29 11:15 MCV MCH MCHC RDW Plt Count MPV Immature Gran % (Auto) Neut % (Auto) Lymph % (Auto) [place] % (Auto) Eos % (Auto) Baso % (Auto) Lymph # (Auto) [place] # (Auto) Eos # (Auto) Baso # (Auto) Abs Immat Gran (auto) Absolute Neuts (auto) Absolute Nucleated RBC Nucleated RBC % (auto) Smear Tech's Comments D-Dimer High Sensitivty Anion Gap 19 Estim Creat Clear Calc 40.5 Estimated GFR 22 POC Glucose 102 Random Glucose Fasting Glucose 105 H Lactic Acid Lactic Acid F/U @ 2Hr Lactic Acid F/U @ 4Hr Calcium 8.0 L Iron TIBC % Saturation Unsat Iron Binding Total Bilirubin GGT AST ALT Alkaline Phosphatase Lactate Dehydrogenase Total Protein Albumin Urine Color Urine Appearance Urine pH Ur Specific [place] Urine Protein Urine Glucose (UA) Urine Ketones Urine Blood Urine Nitrite Ur Leukocyte Esterase Urine RBC Urine WBC Ur Squamous Epith Cells Urine Bacteria Hyaline Casts COVID-19 ([facility]IRALI) COVID-19 Clin Com Blood Type Antibody Screen Microbiology Microbiology Results: Microbiology 06/18/24 20:10 Urine Culture - Preliminary Urine clean catch - Clean Catch Midstream Culture too young to evaluate. Procedures Date of Service Date of Service: 06/19/24 Progress Note: A&P Assessment and plan (1) Abdominal pain: Status: Acute (2) Incisional hernia: Status: Acute (3) UTI (urinary tract infection): Status: Acute Plan 59-year-old morbidly obese female with multiple medical problems including a previous history of diabetes, asthma, hypertension, adrenal adenoma, colon cancer with a large incisional hernia in the midabdomen, gallstones, found to have an urinary tract infection, sepsis with elevated lactate. WBC remains elevated. Patient currently treated with Levaquin IV. We will continue to monitor. Time Spent With Patient Time: Total time managing care of this patient today ____ minutes. Quality Stroke Does the patient have a stroke diagnosis?: No VTE Prior VTE?: No VTE Risk Level:: Medical - moderate - high VTE Device Contraindication: N/A - Device Ordered VTE Drug Contraindication: Treatment Not Indicated
--- NOTE | 2024-06-19 15:55 | PM.CNNEP ---
History of Present Illness Reason for Consult Consult date: 06/19/24 Reason for consult: JAYSON Chief Complaint Chief complaint: Abd pain,nausea History of Present Illness Narrative: 59 years old lady with PMH of Colon CA post Rt colectomy 5 years ago, follows with [facility] oncology, Hx abd hernias , morbid obesity, HTN, DMII, asthma among others who presents to hospital with abdominal pain and inability to tolerate PO. The patient reports having RUQ pain since Wednesday, on\off, no aggrevating factors, associated with nausea and bloating but no vomiting, diarrhea, fever or chills. She has urine frequency and has new swelling in lower extremities with decrease PO intake and feeling unwell. She is under the impression that her cancer is cured with no reported abnormalities on her images or follow up with her primary Oncology at [facility] which she has follow up with on Wednesday. In ED found to have leukocytosis, Lactic acidosis and transaminitis with CT scan concerning for liver metastatsis and cholestiasis but no acute cholecystitis Baseline creatinine was 0.78. Creatinine has gradually increased to 2.23 with mild hyperkalemia and hence this consultation Review of Systems Constitutional: Denies fever(s) and Denies weight loss Cardiovascular: Denies chest pain Respiratory: Denies cough and Denies hemoptysis Gastrointestinal: Denies abdominal pain, Denies diarrhea and Denies nausea Musculoskeletal: Denies back pain Denies focal weakness PMFSH Past Medical History Medical History HTN (hypertension) Carpal tunnel syndrome of left wrist Asthma Morbid obesity Diabetes Colon cancer Thyroid cancer Surgical History Surgical History H/O ventral hernia repair History of removal of laparoscopic gastric banding device Hx of laparoscopic gastric banding H/O colectomy H/O thyroidectomy Social History Social History Household Members: Children Housing: Apartment Do you presently have visiting nurse or other home services: Yes (robotics specialist daily) Patient Tobacco Use Status: Never used Tobacco service: No Current occupational status: disabled Meds Allergies Allergy/AdvReac Type Severity Reaction Status Date / Time cortisone [CORTISONE] Allergy Mild RASH Verified 06/18/24 14:02 Penicillins [PENICILLINS] Allergy Mild RASH Verified 06/18/24 14:02 bee pollen [BEE STINGS] Allergy Unknown ANAPHYLAXIS Verified 06/18/24 14:02 penicillin V Allergy Unknown Itching Verified 06/18/24 14:02 adhesive Allergy Rash Verified 06/18/24 14:02 Cortisone Allergy Unknown Itching Uncoded 03/29/24 13:11 Active Medications: Current Medications Acetaminophen (Acetaminophen 325 Mg Tablet) 650 mg PO Q6H PRN PRN Reason: Pain, Mild 1-3,fever,headache Last Admin: 06/19/24 11:53 Dose: 650 mg Albuterol Sulfate (Albuterol Sulfate 90 Mcg 8 Gm Inhaler) 2 puff INHALE Q4H PRN PRN Reason: Shortness Of Breath Or Wheezing Calcium Carbonate (Calcium Carbonate 750 Mg Tab.Chew) 750 mg PO Q4H PRN PRN Reason: Heartburn Docusate Sodium (Docusate Sodium 100 Mg Capsule) 100 mg PO BID [facility] Empagliflozin (Empagliflozin 25 Mg Tablet) 12.5 mg PO DAILY [facility] Ferrous Sulfate (Ferrous Sulfate 324 Mg Tablet.Dr) 324 mg PO DAILY [facility] Last Admin: 06/19/24 11:40 Dose: 324 mg Fluticasone Propionate (Fluticasone Propionate Nasal 16 Gm [place]) 2 spray NOSTRIL-B DAILY PRN PRN Reason: Allergy Symptoms Gabapentin (Gabapentin 400 Mg Capsule) 400 mg PO TID [facility] Last Admin: 06/19/24 14:38 Dose: 400 mg Hydromorphone HCl (Hydromorphone Hcl 1 Mg/Ml Syringe) 1 mg IVPUSH Q4H PRN; Protocol PRN Reason: Pain, Severe (Pain Scale 7-10) Last Admin: 06/19/24 08:53 Dose: 1 mg Hydroxyzine HCl (Hydroxyzine Hcl 10 Mg Tablet) 10 mg PO Q6H PRN PRN Reason: anxiety Levofloxacin (Levaquin) 500 mg in 100 mls @ 100 mls/hr IV Q24H SYDNEE Levofloxacin (Levaquin) 250 mg in 50 mls @ 50 mls/hr IV Q24H [facility] Sodium Chloride (Ns) 1,000 mls @ 125 mls/hr IVCONT .Q8H [facility] Last Admin: 06/19/24 13:13 Dose: 125 mls/hr Insulin Human Lispro (Insulin Lispro 100 Unit/Ml 3 Ml Vial) 0 unit SUBCUT QIDACHS [facility]; Protocol Last Admin: 06/19/24 13:03 Dose: Not Given Lactulose (Lactulose 20 Gm/30 Ml Solution) 10 gm PO DAILY [facility] Levothyroxine Sodium (Levothyroxine Sodium 200 Mcg Tablet) 400 mcg PO DAILY@0600 [facility] Last Admin: 06/19/24 11:40 Dose: 400 mcg Lidocaine (Lidocaine 4 % Patch Adh..Patch) 1 patch TRANSDERMA DAILY PRN PRN Reason: Pain Magnesium Hydroxide (Milk Of Magnesia 30 Ml Oral.Susp) 30 ml PO DAILY PRN PRN Reason: Constipation Melatonin (Melatonin 3 Mg Tablet) 6 mg PO BEDTIME PRN PRN Reason: Insomnia Metformin HCl (Metformin Hcl Er 500 Mg Tab.Er.24h) 1,000 mg PO DAILY [facility] Multivitamins/Vitamin C (Multivitamin Tablet) 1 tab PO DAILY [facility] Naloxone HCl (Naloxone Hcl Nasal 4 Mg [place]) 4 mg NOSTRILALT DAILY PRN PRN Reason: opioid overdose Omeprazole (Omeprazole 20 Mg Capsule.Dr) 20 mg PO DAILY@0630 [facility] Ondansetron HCl (Ondansetron Hcl 4 Mg/2 Ml Vial) 4 mg IVPUSH Q8H PRN PRN Reason: Nausea and Vomiting Last Admin: 06/19/24 08:09 Dose: 4 mg Oxycodone HCl (Oxycodone Hcl Immed Release 15 Mg Tablet) 7.5 mg PO QID PRN PRN Reason: Pain, Moderate Last Admin: 06/19/24 11:52 Dose: 7.5 mg Paroxetine HCl (Paroxetine Hcl 40 Mg Tablet) 40 mg PO DAILY [facility] Sodium Chloride (0.9 % Sodium Chloride Flush 3 Ml Syringe) 3 ml IVFLUSH QSHIFT [facility] Last Admin: 06/19/24 08:18 Dose: Not Given Zolpidem Tartrate (Zolpidem Tartrate 5 Mg Tablet) 10 mg PO BEDTIME PRN PRN Reason: Sleep Home Medications ?Medication ?Instructions ?Recorded ?Confirmed ?Last Taken ?Type levothyroxine 200 mcg tablet 400 mcg PO DAILY@0600 02/26/21 06/19/24 06/18/24 History lidocaine 5 % topical patch 1 patch topical DAILY PRN Pain 02/26/21 06/19/24 Unknown History multivitamin with folic acid 400 1 tab PO DAILY 02/26/21 06/19/24 06/18/24 History mcg tablet (Daily-[place] (with folic acid)) oxycodone-acetaminophen 7.5 mg-325 1 tab PO QID PRN Pain, Moderate 02/26/21 06/19/24 Unknown History mg tablet pantoprazole 20 mg tablet,delayed 20 mg PO DAILY@0630 02/26/21 06/19/24 06/18/24 History release paroxetine HCl 40 mg tablet 40 mg PO DAILY 02/26/21 06/19/24 06/18/24 History zolpidem 10 mg tablet 10 mg PO BEDTIME PRN Sleep 02/26/21 06/19/24 Unknown History diclofenac sodium 1 % topical gel 2 g topical BID PRN Pain 02/10/22 06/19/24 Unknown History docusate sodium 100 mg capsule 100 mg PO BID 02/10/22 06/19/24 06/18/24 History fluticasone propionate 50 2 spray intranasal DAILY PRN 02/10/22 06/19/24 Unknown History mcg/actuation nasal Allergy Symptoms spray,suspension losartan 25 mg tablet 25 mg PO DAILY 02/10/22 06/19/24 06/18/24 History naloxone 4 mg/actuation nasal 1 spray intranasal DAILY PRN 02/10/22 06/19/24 06/18/24 History spray (Narcan) Opioid Overdose ondansetron HCl 4 mg tablet 4 mg PO TID PRN nausea 02/10/22 06/19/24 Unknown History albuterol sulfate 90 mcg/actuation 2 puff inhalation Q4-6H PRN 06/19/24 06/19/24 Unknown History aerosol inhaler (Ventolin HFA) Shortness Of Breath Or Wheezing dulaglutide 0.75 mg/0.5 mL 0.75 mg subcut SA 06/19/24 06/19/24 06/10/24 History subcutaneous pen injector (Trulicity) empagliflozin 12.5 mg-metformin ER 1 tab PO DAILY 06/19/24 06/19/24 06/18/24 History 1,000 mg tablet,extended rel 24 hr (Synjardy XR) ferrous sulfate 325 mg (65 mg 325 mg PO DAILY 06/19/24 06/19/24 06/18/24 History iron) tablet gabapentin 400 mg capsule 400 mg PO TID 06/19/24 06/19/24 06/18/24 History hydroxyzine HCl 10 mg tablet 10 - 20 mg PO Q6H PRN anxiety 06/19/24 06/19/24 Unknown History lactulose 10 gram/15 mL oral 15 ml PO DAILY 06/19/24 06/19/24 06/18/24 History solution Physical Exam Vital Signs: Last Vital Signs Temp 97.5 F 06/19/24 15:34 Pulse 78 06/19/24 15:34 Resp 16 06/19/24 15:34 BP 115/58 L 06/19/24 15:34 Pulse Ox 92 06/19/24 15:34 O2 Del Method Room Air 06/19/24 15:34 O2 Flow Rate 2 06/19/24 08:29 BMI result Body Mass Index 58.7 Comfortable Neck supple no JVD. Lungs entry equal no rales. Heart S1-S2 heard no gallop or rub. Abdomen soft nontender. Neuro alert awake oriented. No asterixis. Extremities no edema. Results Lab Results 06/20/24 05:19 06/20/24 05:19 Lab results: Chemistry 06/18/24 06/19/24 06/19/24 14:20 04:49 09:29 Sodium 136 136 134 L Potassium 4.9 D 5.7 H 5.8 H Carbon Dioxide 22 19 L 21 L BUN 22 H 30 H 32 H Creatinine 0.78 1.81 H 2.23 H Calcium 8.5 D 8.1 L 8.0 L Hematology 06/18/24 06/18/24 06/19/24 14:20 18:45 04:49 WBC 17.9 H 18.0 H 22.4 H Hgb 8.6 L 8.1 L 7.6 L Plt Count 363 D 389 398 Urinalysis 06/18/24 20:10 Urine Color Dark Yellow Urine Appearance Turbid Urine pH 5.0 Ur Specific [place] 1.015 Urine Protein 100 (2+) H Urine Glucose (UA) Negative Urine Ketones Negative Urine Blood Negative Urine Nitrite Positive H Ur Leukocyte Esterase Large (3+) H Urine RBC 3-5 H Urine WBC >50 H Ur Squamous Epith Cells >20 Hyaline Casts 3-5 Assessment and Plan (1) JAYSON (acute kidney injury): Status: Acute Plan Differential diagnosis include hypoperfusion leading to ATN. Rule out obstructive uropathy. Other possibilities including acute glomerular nephritis can not be ruled out here Hyperkalemia in setting of JAYSON Recommendations Change IV fluids to normal saline. Keep intake more than output. Check renal ultrasonogram. Check urine for protein creatinine ratio Urine eosinophils. (ordered) C ANCA p-ANCA, serum complements haptoglobin and LDH(ordered) Lokelma p.r.n. to correct hyperkalemia. Watch urine output closely. No absolute indication for dialysis yet however if renal function does not improve or if she has persistent hyperkalemia she would require dialysis. Procedures Date of Service Date of Service: 06/20/24
[2024-06-19 15:59] LABS: Glucose, Whole Blood 97 mg/dL (60-115)
[2024-06-19] MEDS: levoFLOXacin/D5W 500 MG/100 ML PIGGYBACK 100 MG IV (15:59)
[2024-06-19] MEDS: 0.9 % Sodium Chloride Flush 3 ML SYRINGE IVFLUSH ×2 (15:59→20:25)
--- NOTE | 2024-06-19 16:09 | PC.NURSE ---
Pts o2 noted to be 87% when sleeping, MD Javier made aware, 1L o2 applied for pts nap, o2 90-96% 1L NC.
[2024-06-19 16:29] LABS: Uric Acid 10.1 mg/dL (2.4-5.7)
[2024-06-19] MEDS: levoFLOXacin/D5W 250 MG/50 ML PIGGYBACK 50 MG IV (17:21)
--- NOTE | 2024-06-19 17:47 | PC.NURSE ---
Pt offered bariatric bed, pt is declining at this time.
[2024-06-19 20:17] LABS: Glucose, Whole Blood 122 mg/dL (60-115)
[2024-06-19] MEDS: Docusate Sodium 100 MG CAPSULE PO (20:22)
[2024-06-19] MEDS: Melatonin 3 MG TABLET 6 MG PO (20:22)
[2024-06-19] MEDS: Simethicone 80 MG TAB.CHEW 160 MG PO (21:25)
[2024-06-19] MEDS: Prochlorperazine Edisylate 10 MG/2 ML VIAL IVPUSH (21:25)
--- NOTE | 2024-06-19 21:31 | MHC.PIE ---
p; pt c/o pain to abd 02/23, prn dilaudid given with pt cont to c/o pain to abd, but now pt reports gas pain and nausea. note; prn zofran q8 given at 1800 i; dr carpio notified. new order simithicone now, compazine now e; will cont to moniotor
--- NOTE | 2024-06-19 22:58 | MHC.PIE ---
p; carter bag emptied for 5ml. per previous rn, carter inserted at 1800 with 20 ml out put at time of insertion. note; IVF NS at 125 ml. i; dr carpio made aware e; will cont to monitor
[2024-06-19 23:05] LABS: Anion Gap 16 (12-20); Blood Urea Nitrogen 39 mg/dL (9-16); Calcium 7.6 mg/dL (8.4-10.2); Carbon Dioxide 20 mmol/L (22-29); Chloride 100 mmol/L (96-108); Creatinine Clr Calc Pharmacy 29.6; Estimated Glomerular Filt Rate 15; Glucose Random 97 mg/dL (60-115); Potassium 5.6 mmol/L (3.3-5.1); Sodium 130 mmol/L (135-145)
[2024-06-20] MEDS: Sodium Zirconium Cyclosilicate 10 GM POWD.PACK PO ×2 (00:07→10:28)
[2024-06-20] MEDS: 0.9 % Sodium Chloride 1,000 ML 125 ML IVCONT (03:55)
[2024-06-20 04:04] VITALS: BP 97/53; PULSE 84; RESP 16; TEMP 36.8; O2SAT 97
[2024-06-20] MEDS: ondansetron HCL 4 MG/2 ML VIAL IVPUSH ×3 (04:21→18:49)
[2024-06-20] MEDS: Prochlorperazine Edisylate 10 MG/2 ML VIAL IVPUSH (05:51)
--- NOTE | 2024-06-20 05:52 | MHC.PIE ---
p; c/o n/v prn zofran given with little result. i; dr carpio notified. new order compazine now e; will cont to monitor
--- NOTE | 2024-06-20 05:54 | MHC.PIE ---
p; carter emptied for 5ml (last emptied at 2300) i; dr carpio notified e; will cont to monitor
[2024-06-20 06:22] LABS: Hematocrit 25.4 % (37.0-47.0); Hemoglobin 7.7 g/dl (12.0-16.0); Mean Corpuscular HGB Conc 30.3 g/dl (31.0-35.0); Mean Corpuscular Hemoglobin 20.6 pg (27.0-33.0); Mean Corpuscular Volume 68.1 fL (80.0-98.0); Mean Platelet Volume 11.1 fL (9.4-12.3); NRBC Pct Auto 0.6 /100WBC (0.0-0.2); Platelet Count 391 X10*3/uL (160-400); Red Blood Count 3.73 X10*6/uL (4.20-5.50); Red Cell Distribution Width 22.9 % (11.0-16.0)
[2024-06-20 06:23] LABS: Anion Gap 19 (12-20); Blood Urea Nitrogen 43 mg/dL (9-16); Calcium 8.1 mg/dL (8.4-10.2); Carbon Dioxide 19 mmol/L (22-29); Chloride 100 mmol/L (96-108); Creatinine Clr Calc Pharmacy 24.7; Estimated Glomerular Filt Rate 12; Glucose Random 83 mg/dL (60-115); Potassium 5.7 mmol/L (3.3-5.1); Sodium 132 mmol/L (135-145)
[2024-06-20 06:26] LABS: Haptoglobin 231 mg/dL (63-273)
[2024-06-20 07:20] VITALS: BP 93/54; PULSE 78; RESP 18; TEMP 36.1; O2SAT 96
[2024-06-20 07:54] LABS: Glucose, Whole Blood 106 mg/dL (60-115)
--- NOTE | 2024-06-20 07:59 | P.PNGS_ITS ---
Subjective Subjective Date of Service: 06/20/24 Interval history: Luisa reports some discomfort in the left lower quadrant this morning denies any pain in the right upper quadrant or epigastric/hernia region. Reports a bowel movement last evening with no blood. Tolerated p.o. without nausea or vomiting. Physical Exam 2 Vital Signs: Vital Signs: Last Vital Signs Temp 96.9 F 06/20/24 07:20 Pulse 78 06/20/24 07:20 Resp 18 06/20/24 07:20 BP 93/54 L 06/20/24 07:20 Pulse Ox 96 06/20/24 07:20 O2 Del Method Nasal Cannula 06/20/24 07:20 O2 Flow Rate 1 06/20/24 07:20 BMI result Body Mass Index 58.7 Const: General: no acute distress Nutritional Appearance: obese O rientation/consciousness: patient oriented x3 Resp: Effort & Inspection: normal respiratory effort GI: Inspection: No Abdominal wall edema, Yes obesity and Yes visible herniation Palpation (GI): Soft to palpation, Tenderness to palpation present (GI) in the LLQ; with no rebound tenderness, no guarding and not rigid A uscultation: normal bowel sounds Rectal Exam - Female: deferred Skin: Other: Warm and dry Neuro: General: patient oriented x3 Objective Data Active Medications Acetaminophen (Acetaminophen 325 Mg Tablet) 650 mg PO Q6H PRN PRN Reason: Pain, Mild 1-3,fever,headache Last Admin: 06/19/24 11:53 Dose: 650 mg Documented By: DESI Albuterol Sulfate (Albuterol Sulfate 90 Mcg 8 Gm Inhaler) 2 puff INHALE Q4H PRN PRN Reason: Shortness Of Breath Or Wheezing Calcium Carbonate (Calcium Carbonate 750 Mg Tab.Chew) 750 mg PO Q4H PRN PRN Reason: Heartburn Docusate Sodium (Docusate Sodium 100 Mg Capsule) 100 mg PO BID [facility] Last Admin: 06/19/24 20:22 Dose: 100 mg Documented By: LAURE Empagliflozin (Empagliflozin 25 Mg Tablet) 12.5 mg PO DAILY [facility] Ferrous Sulfate (Ferrous Sulfate 324 Mg Tablet.Dr) 324 mg PO DAILY [facility] Last Admin: 06/19/24 11:40 Dose: 324 mg Documented By: COLTEN Fluticasone Propionate (Fluticasone Propionate Nasal 16 Gm [place]) 2 spray NOSTRIL-B DAILY PRN PRN Reason: Allergy Symptoms Gabapentin (Gabapentin 400 Mg Capsule) 400 mg PO TID [facility] Last Admin: 06/19/24 20:22 Dose: 400 mg Documented By: LAURE Hydromorphone HCl (Hydromorphone Hcl 1 Mg/Ml Syringe) 1 mg IVPUSH Q4H PRN; Protocol PRN Reason: Pain, Severe (Pain Scale 7-10) Last Admin: 06/19/24 20:20 Dose: 1 mg Documented By: LAURE Hydroxyzine HCl (Hydroxyzine Hcl 10 Mg Tablet) 10 mg PO Q6H PRN PRN Reason: anxiety Levofloxacin (Levaquin) 500 mg in 100 mls @ 100 mls/hr IV Q24H [facility] Last Infusion: 06/19/24 17:04 Dose: Infused Documented By: COLTEN Levofloxacin (Levaquin) 250 mg in 50 mls @ 50 mls/hr IV Q24H [facility] Last Infusion: 06/19/24 18:26 Dose: Infused Documented By: COLTEN Sodium Chloride (Ns) 1,000 mls @ 125 mls/hr IVCONT .Q8H [facility] Last Admin: 06/20/24 03:55 Dose: 125 mls/hr Documented By: LAURE Insulin Human Lispro (Insulin Lispro 100 Unit/Ml 3 Ml Vial) 0 unit SUBCUT QIDACHS [facility]; Protocol Last Admin: 06/19/24 20:24 Dose: Not Given Documented By: LAURE Non-Admin Reason: No Insulin Coverage Lactulose (Lactulose 20 Gm/30 Ml Solution) 10 gm PO DAILY [facility] Levothyroxine Sodium (Levothyroxine Sodium 200 Mcg Tablet) 400 mcg PO DAILY@0600 [facility] Last Admin: 06/20/24 05:16 Dose: Not Given Documented By: LAURE Non-Admin Reason: Nausea Lidocaine (Lidocaine 4 % Patch Adh..Patch) 1 patch TRANSDERMA DAILY PRN PRN Reason: Pain Magnesium Hydroxide (Milk Of Magnesia 30 Ml Oral.Susp) 30 ml PO DAILY PRN PRN Reason: Constipation Melatonin (Melatonin 3 Mg Tablet) 6 mg PO BEDTIME PRN PRN Reason: Insomnia Last Admin: 06/19/24 20:22 Dose: 6 mg Documented By: LAURE Multivitamins/Vitamin C (Multivitamin Tablet) 1 tab PO DAILY [facility] Naloxone HCl (Naloxone Hcl Nasal 4 Mg [place]) 4 mg NOSTRILALT DAILY PRN PRN Reason: opioid overdose Omeprazole (Omeprazole 20 Mg Capsule.Dr) 20 mg PO DAILY@0630 [facility] Last Admin: 06/20/24 05:16 Dose: Not Given Documented By: LAURE Non-Admin Reason: Nausea Ondansetron HCl (Ondansetron Hcl 4 Mg/2 Ml Vial) 4 mg IVPUSH Q8H PRN PRN Reason: Nausea and Vomiting Last Admin: 06/20/24 04:21 Dose: 4 mg Documented By: LAURE Oxycodone HCl (Oxycodone Hcl Immed Release 15 Mg Tablet) 7.5 mg PO QID PRN PRN Reason: Pain, Moderate Last Admin: 06/19/24 17:53 Dose: 7.5 mg Documented By: COLTEN Paroxetine HCl (Paroxetine Hcl 40 Mg Tablet) 40 mg PO DAILY [facility] Sodium Chloride (0.9 % Sodium Chloride Flush 3 Ml Syringe) 3 ml IVFLUSH QSHIFT [facility] Last Admin: 06/19/24 20:25 Dose: 3 ml Documented By: LAURE Zolpidem Tartrate (Zolpidem Tartrate 5 Mg Tablet) 10 mg PO BEDTIME PRN PRN Reason: Sleep Labs 06/20/24 05:19 06/20/24 05:19 Labs: Laboratory Results - last 24 hr 06/19/24 06/19/24 06/19/24 09:29 11:15 15:54 MCV MCH MCHC RDW Plt Count MPV Absolute Nucleated RBC Nucleated RBC % (auto) Anion Gap 19 Estim Creat Clear Calc 40.5 Estimated GFR 22 POC Glucose 102 97 Random Glucose Fasting Glucose 105 H Haptoglobin Uric Acid 10.1 H Calcium 8.0 L 06/19/24 06/19/24 06/20/24 20:14 22:44 05:19 MCV 68.1 L MCH 20.6 L MCHC 30.3 L RDW 22.9 H Plt Count 391 MPV 11.1 Absolute Nucleated RBC 0.130 H Nucleated RBC % (auto) 0.6 H Anion Gap 16 19 Estim Creat Clear Calc 29.6 24.7 Estimated GFR 15 12 POC Glucose 122 H Random Glucose 97 83 Fasting Glucose Haptoglobin 231 Uric Acid Calcium 7.6 L 8.1 L D 06/20/24 07:24 MCV MCH MCHC RDW Plt Count MPV Absolute Nucleated RBC Nucleated RBC % (auto) Anion Gap Estim Creat Clear Calc Estimated GFR POC Glucose 106 Random Glucose Fasting Glucose Haptoglobin Uric Acid Calcium Microbiology Microbiology Results: Microbiology 06/18/24 15:26 Blood Culture - Preliminary Blood - Venous No growth after 24 hours. 06/18/24 15:26 Blood Culture - Preliminary Blood - Venous No growth after 24 hours. 06/18/24 20:10 Urine Culture - Preliminary Urine clean catch - Clean Catch Midstream Culture too young to evaluate. Procedures Date of Service Date of Service: 06/20/24 Progress Note: A&P Assessment and plan (1) Abdominal pain: Status: Acute (2) Incisional hernia: Status: Acute (3) UTI (urinary tract infection): Status: Acute Plan 59-year-old morbidly obese female with multiple medical problems including a previous history of diabetes, asthma, hypertension, adrenal adenoma, colon cancer with a large incisional hernia in the midabdomen, gallstones, found to have an urinary tract infection, sepsis with elevated lactate. She feels improved with only minimal tenderness in the left lower quadrant noted on examination. No peritoneal signs. WBC remains elevated at 23. Patient currently treated with Levaquin IV. Time Spent With Patient Time: Total time managing care of this patient today ____ minutes. Quality Stroke Does the patient have a stroke diagnosis?: No VTE Prior VTE?: No VTE Risk Level:: Medical - moderate - high VTE Device Contraindication: N/A - Device Ordered VTE Drug Contraindication: Treatment Not Indicated
[2024-06-20] MEDS: HYDROmorphone HCl 1 MG/ML SYRINGE IVPUSH (09:25)
--- NOTE | 2024-06-20 09:42 | P.PNNP_ITS ---
Subjective Subjective Date of Service: 06/20/24 Interval history: Noted. Oliguric. Tolerating IV fluids. Physical Exam 2 Vital Signs: Vital Signs: Last Vital Signs Temp 96.9 F 06/20/24 07:20 Pulse 78 06/20/24 07:20 Resp 18 06/20/24 07:20 BP 93/54 L 06/20/24 07:20 Pulse Ox 96 06/20/24 07:20 O2 Del Method Nasal Cannula 06/20/24 07:20 O2 Flow Rate 1 06/20/24 07:20 BMI result Body Mass Index 58.7 Const: Other: General: AO X 3, no acute distress Resp: CTA bilateral CVS: S1,S2,RRR GI: +BS, NT, no distention Skin: No rash Neuro: motor grossly intact Psych: appropriate affect Objective Data Labs 06/20/24 05:19 06/20/24 05:19 Labs: Laboratory Results - last 24 hr 06/19/24 06/19/24 06/19/24 09:29 11:15 15:54 WBC RBC Hgb Hct MCV MCH MCHC RDW Plt Count MPV Absolute Nucleated RBC Nucleated RBC % (auto) Sodium 134 L Potassium 5.8 H Chloride 100 Carbon Dioxide 21 L Anion Gap 19 BUN 32 H Creatinine 2.23 H Estim Creat Clear Calc 40.5 Estimated GFR 22 POC Glucose 102 97 Random Glucose Fasting Glucose 105 H Haptoglobin Uric Acid 10.1 H Calcium 8.0 L 06/19/24 06/19/24 06/20/24 20:14 22:44 05:19 WBC 23.0 H RBC 3.73 L Hgb 7.7 L Hct 25.4 L MCV 68.1 L MCH 20.6 L MCHC 30.3 L RDW 22.9 H Plt Count 391 MPV 11.1 Absolute Nucleated RBC 0.130 H Nucleated RBC % (auto) 0.6 H Sodium 130 L 132 L Potassium 5.6 H 5.7 H Chloride 100 100 Carbon Dioxide 20 L 19 L Anion Gap 16 19 BUN 39 H 43 H Creatinine 3.09 H 3.70 H Estim Creat Clear Calc 29.6 24.7 Estimated GFR 15 12 POC Glucose 122 H Random Glucose 97 83 Fasting Glucose Haptoglobin 231 Uric Acid Calcium 7.6 L 8.1 L D 06/20/24 07:24 WBC RBC Hgb Hct MCV MCH MCHC RDW Plt Count MPV Absolute Nucleated RBC Nucleated RBC % (auto) Sodium Potassium Chloride Carbon Dioxide Anion Gap BUN Creatinine Estim Creat Clear Calc Estimated GFR POC Glucose 106 Random Glucose Fasting Glucose Haptoglobin Uric Acid Calcium Microbiology Microbiology Results: Microbiology 06/18/24 15:26 Blood - Venous Blood Culture - Preliminary No growth after 24 hours. 06/18/24 15:26 Blood - Venous Blood Culture - Preliminary No growth after 24 hours. 06/18/24 20:10 Urine clean catch - Clean Catch Midstream Urine Culture - Preliminary Culture too young to evaluate. Procedures Date of Service Date of Service: 06/20/24 Assessment & Plan Assessment and plan (1) JAYSON (acute kidney injury): Status: Acute Plan Differential diagnosis include hypoperfusion leading to ATN. Rule out obstructive uropathy. Other possibilities including acute glomerular nephritis can not be ruled out here Hyperkalemia in setting of JAYSON Recommendations Decrease IV fluids to 50 cc/hour Keep intake more than output. Urine eosinophils. (ordered) C ANCA p-ANCA, serum complements haptoglobin and LDH(ordered) Lokelma p.r.n. to correct hyperkalemia. Watch urine output closely. No absolute indication for dialysis yet however if renal function does not improve or if she has persistent hyperkalemia she would require dialysis. Time Spent With Patient Time: Total time managing care of this patient today ____ minutes. Progress Note: Quality Stroke Does the patient have a stroke diagnosis?: No
[2024-06-20] MEDS: Lactulose 20 GM/30 ML SOLUTION 10 GM PO (10:27)
[2024-06-20] MEDS: Multivitamin TABLET 1 TAB PO (10:28)
[2024-06-20] MEDS: Ferrous Sulfate 324 MG TABLET.DR PO (10:28)
[2024-06-20] MEDS: Empagliflozin 25 MG TABLET 12.5 MG PO (10:28)
[2024-06-20] MEDS: Docusate Sodium 100 MG CAPSULE PO ×2 (10:29→19:32)
[2024-06-20] MEDS: Gabapentin 400 MG CAPSULE PO (10:29)
[2024-06-20] MEDS: PARoxetine HCL 40 MG TABLET PO (10:29)
[2024-06-20 11:31] LABS: Glucose, Whole Blood 93 mg/dL (60-115)
[2024-06-20 12:00] VITALS: BP 93/55; PULSE 76; RESP 16; TEMP 36.4; O2SAT 95
[2024-06-20] MEDS: 0.9 % Sodium Chloride 1,000 ML 100 ML IVCONT (12:56)
--- NOTE | 2024-06-20 14:33 | HO.PM.IMPN ---
Subjective Subjective Date of Service: 06/20/24 Interval History: jayson elevated lfts concern for liver mass ? Review of Systems patient seems similar to yesterday want to try po trial of diet Physical Exam Vital Signs: Vital Signs: Last Vital Signs Temp 97.6 F 06/20/24 12:00 Pulse 76 06/20/24 12:00 Resp 16 06/20/24 12:00 BP 93/55 L 06/20/24 12:00 Pulse Ox 95 06/20/24 12:00 O2 Del Method Nasal Cannula 06/20/24 12:00 O2 Flow Rate 1 06/20/24 12:00 BMI result Body Mass Index 58.7 General: AO X 3, no acute distress Resp: CTA bilateral CVS: S1,S2,RRR GI: +BS, NT, no distention Skin: No rash Neuro: motor grossly intact Psych: appropriate affect Objective Data Active Medications Acetaminophen (Acetaminophen 325 Mg Tablet) 650 mg PO Q6H PRN PRN Reason: Pain, Mild 1-3,fever,headache Last Admin: 06/19/24 11:53 Dose: 650 mg Documented By: DESI Albuterol Sulfate (Albuterol Sulfate 90 Mcg 8 Gm Inhaler) 2 puff INHALE Q4H PRN PRN Reason: Shortness Of Breath Or Wheezing Bisacodyl (Bisacodyl 10 Mg Supp.Rect) 10 mg OK BEDTIME SYDNEE Calcium Carbonate (Calcium Carbonate 750 Mg Tab.Chew) 750 mg PO Q4H PRN PRN Reason: Heartburn Docusate Sodium (Docusate Sodium 100 Mg Capsule) 100 mg PO BID [facility] Last Admin: 06/20/24 10:29 Dose: 100 mg Documented By: COLTEN Ferrous Sulfate (Ferrous Sulfate 324 Mg Tablet.Dr) 324 mg PO DAILY [facility] Last Admin: 06/20/24 10:28 Dose: 324 mg Documented By: COLTEN Fluticasone Propionate (Fluticasone Propionate Nasal 16 Gm [place]) 2 spray NOSTRIL-B DAILY PRN PRN Reason: Allergy Symptoms Gabapentin (Gabapentin 100 Mg Capsule) 200 mg PO TID [facility] Hydromorphone HCl (Hydromorphone Hcl 1 Mg/Ml Syringe) 1 mg IVPUSH Q4H PRN; Protocol PRN Reason: Pain, Severe (Pain Scale 7-10) Last Admin: 06/20/24 09:25 Dose: 1 mg Documented By: COLTEN Hydroxyzine HCl (Hydroxyzine Hcl 10 Mg Tablet) 10 mg PO Q6H PRN PRN Reason: anxiety Levofloxacin (Levaquin) 500 mg in 100 mls @ 100 mls/hr IV Q24H [facility] Last Infusion: 06/19/24 17:04 Dose: Infused Documented By: COLTEN Levofloxacin (Levaquin) 250 mg in 50 mls @ 50 mls/hr IV Q24H [facility] Last Infusion: 06/19/24 18:26 Dose: Infused Documented By: COLTEN Sodium Chloride (Ns) 1,000 mls @ 50 mls/hr IVCONT .Q20H [facility] Last Infusion: 06/20/24 13:18 Dose: 50 mls/hr Documented By: COLTEN Insulin Human Lispro (Insulin Lispro 100 Unit/Ml 3 Ml Vial) 0 unit SUBCUT QIDACHS [facility]; Protocol Last Admin: 06/20/24 11:53 Dose: Not Given Documented By: COLTEN Non-Admin Reason: No Insulin Coverage Lactulose (Lactulose 20 Gm/30 Ml Solution) 10 gm PO DAILY [facility] Last Admin: 06/20/24 10:27 Dose: 10 gm Documented By: COLTEN Levothyroxine Sodium (Levothyroxine Sodium 200 Mcg Tablet) 400 mcg PO DAILY@0600 [facility] Last Admin: 06/20/24 05:16 Dose: Not Given Documented By: LAURE Non-Admin Reason: Nausea Lidocaine (Lidocaine 4 % Patch Adh..Patch) 1 patch TRANSDERMA DAILY PRN PRN Reason: Pain Magnesium Hydroxide (Milk Of Magnesia 30 Ml Oral.Susp) 30 ml PO DAILY PRN PRN Reason: Constipation Melatonin (Melatonin 3 Mg Tablet) 6 mg PO BEDTIME PRN PRN Reason: Insomnia Last Admin: 06/19/24 20:22 Dose: 6 mg Documented By: LAURE Multivitamins/Vitamin C (Multivitamin Tablet) 1 tab PO DAILY [facility] Last Admin: 06/20/24 10:28 Dose: 1 tab Documented By: COLTEN Naloxone HCl (Naloxone Hcl Nasal 4 Mg [place]) 4 mg NOSTRILALT DAILY PRN PRN Reason: opioid overdose Omeprazole (Omeprazole 20 Mg Capsule.) 20 mg PO DAILY@0630 [facility] Last Admin: 06/20/24 05:16 Dose: Not Given Documented By: LAURE Non-Admin Reason: Nausea Ondansetron HCl (Ondansetron Hcl 4 Mg/2 Ml Vial) 4 mg IVPUSH Q8H PRN PRN Reason: Nausea and Vomiting Last Admin: 06/20/24 04:21 Dose: 4 mg Documented By: LAURE Oxycodone HCl (Oxycodone Hcl Immed Release 15 Mg Tablet) 7.5 mg PO QID PRN PRN Reason: Pain, Moderate Last Admin: 06/19/24 17:53 Dose: 7.5 mg Documented By: COLTEN Paroxetine HCl (Paroxetine Hcl 40 Mg Tablet) 40 mg PO DAILY [facility] Last Admin: 06/20/24 10:29 Dose: 40 mg Documented By: COLTEN Sodium Chloride (0.9 % Sodium Chloride Flush 3 Ml Syringe) 3 ml IVFLUSH QSHIFT [facility] Last Admin: 06/20/24 09:10 Dose: Not Given Documented By: COLTEN Non-Admin Reason: IV Running Zolpidem Tartrate (Zolpidem Tartrate 5 Mg Tablet) 10 mg PO BEDTIME PRN PRN Reason: Sleep Labs 06/20/24 05:19 06/20/24 05:19 Labs: Laboratory Results - last 24 hr 06/19/24 06/19/24 06/19/24 09:29 15:54 20:14 MCV MCH MCHC RDW Plt Count MPV Absolute Nucleated RBC Nucleated RBC % (auto) Anion Gap Estim Creat Clear Calc Estimated GFR POC Glucose 97 122 H Random Glucose Haptoglobin Uric Acid 10.1 H Calcium 06/19/24 06/20/24 06/20/24 22:44 05:19 07:24 MCV 68.1 L MCH 20.6 L MCHC 30.3 L RDW 22.9 H Plt Count 391 MPV 11.1 Absolute Nucleated RBC 0.130 H Nucleated RBC % (auto) 0.6 H Anion Gap 16 19 Estim Creat Clear Calc 29.6 24.7 Estimated GFR 15 12 POC Glucose 106 Random Glucose 97 83 Haptoglobin 231 Uric Acid Calcium 7.6 L 8.1 L D 06/20/24 11:23 MCV MCH MCHC RDW Plt Count MPV Absolute Nucleated RBC Nucleated RBC % (auto) Anion Gap Estim Creat Clear Calc Estimated GFR POC Glucose 93 Random Glucose Haptoglobin Uric Acid Calcium Microbiology Microbiology Results: Microbiology 06/18/24 20:10 Urine Culture - Final Urine clean catch - Clean Catch Midstream 06/18/24 15:26 Blood Culture - Preliminary Blood - Venous No growth after 24 hours. 06/18/24 15:26 Blood Culture - Preliminary Blood - Venous No growth after 24 hours. Assessment and Plan (1) JAYSON (acute kidney injury): Status: Acute (2) Sepsis: Status: Acute (3) UTI (urinary tract infection): Status: Acute Assessment and Plan: 59/F w/ PMH of Colon CA post Rt colectomy 5 years ago, follows with [facility] oncology, Hx abd hernias , morbid obesity, HTN, DMII, asthma among others who presents to hospital with abdominal pain and inability to tolerate PO and found to have sepsis d/t uti sepsis 2/2 UTI pending cultures IV Levaquin for now started 06/18/24 JAYSON--likey ATN from renal hypoperfusion from hypotension haptoglobin levels normal renal evaluation noted-anca addded ,c3,c4 ,myeloperoxidase ,proteinase pending , renal us. IVF and monitor Keep intake more than output. Hyperkalemia d/t renal failure lokelma Abdominal pain with Transaminitis US negative for acute cholecystitis CT scan as reported, likely liver metastatic disease elevated LDH, ALP and GGT; ? in setting of liver mass Surgery input appreciated, unlikely SBO or hernia related pain. plan: moniter LFT Morphine for pain now, antiemitic as needed trial of diet. added oncology/hematology eval -multifactroial issues : heaptic masses /anemia . acute Lactic acidosis not due to severe sepsis likely from Metformin and liver mass. received IVF monitor as needed Hypotension--not due to severe sepsis, likely related to BP medicaitons and liver disease as above. resolved, monitor Iron def. Anemia iron profile -iron sats and levels low ,tibc low start iron supplement denies any melena or aj blood in stool DVT PPX SCDs for possible blood loss anemia ongoing need hospital stay for IV antibiotics pending cultures, monitoring liver function and controlling pain Quality Stroke Does the patient have a stroke diagnosis?: No VTE Prior VTE?: No VTE Risk Level:: Medical - moderate - high VTE Device Contraindication: N/A - Device Ordered VTE Drug Contraindication: Treatment Not Indicated
--- NOTE | 2024-06-20 14:44 | P.CNHO_ITS ---
Subjective - Subjective Chief complaint: Abdominal pain Patient: new to practice Consult date: 06/20/24 Requesting Physician: Dr. Castro Primary Care Provider: Osei Fernández MD HPI - Consult Narrative Reason for consult: Liver lesions, history of colon cancer Narrative: Luisa Levy is a 59 year old female presented to hospital/[facility] with complaints of right upper and lower quadrant pain. She says that initially it felt like discomfort was from her abdominal hernia that she has had for awhile, later pain shifted to right upper and lower quadrant. She reported some nausea and poor appetite but no vomiting, denied any fever or chills. She says she underwent surgery for colon cancer at [facility] about 5 years ago. She was to have her last follow-up with Dr. Song today, she was told that he was discharging her from the practice as she had been in remission. Patient does not recall stage of her cancer but she did receive chemotherapy for 4 months after she underwent surgery. She just had her MediPort removed. She was never diagnosed with metastatic cancer or liver lesions in the past. She does not recall when her last abdominal scan was. Review of Systems - Constitutional Reports anorexia, Reports lack of energy, Reports malaise - Cardiovascular Denies chest pain - Respiratory Denies cough, Denies dyspnea - Gastrointestinal Reports abdominal pain, Denies black, tarry stools - Neurologic Denies focal weakness PMFSH Medical History: Medical History (Last Reviewed 06/18/24 @ 21:15 by Raphael Peralta MD) Asthma Carpal tunnel syndrome of left wrist Colon cancer Diabetes HTN (hypertension) Morbid obesity Thyroid cancer Surgical History: Surgical History (Last Reviewed 06/18/24 @ 21:15 by Raphael Peralta MD) H/O colectomy H/O thyroidectomy H/O ventral hernia repair History of removal of laparoscopic gastric banding device Hx of laparoscopic gastric banding Social History: Social History (Last Reviewed 06/18/24 @ 21:15 by Raphael Peralta MD) Living Situation History: Household Members: Children Housing: Apartment Do you presently have visiting nurse or other home services: Yes Do you presently have visiting nurse or 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 Tobacco History: Patient Tobacco Use Status: Never used Tobacco Occupation Assessmet: service: No Current occupational status: disabled Home Medications and Allergies Current Medications: Current Medications Acetaminophen (Acetaminophen 325 Mg Tablet) 650 mg PO Q6H PRN PRN Reason: Pain, Mild 1-3,fever,headache Last Admin: 06/19/24 11:53 Dose: 650 mg Albuterol Sulfate (Albuterol Sulfate 90 Mcg 8 Gm Inhaler) 2 puff INHALE Q4H PRN PRN Reason: Shortness Of Breath Or Wheezing Bisacodyl (Bisacodyl 10 Mg Supp.Rect) 10 mg AR BEDTIME SYDNEE Calcium Carbonate (Calcium Carbonate 750 Mg Tab.Chew) 750 mg PO Q4H PRN PRN Reason: Heartburn Docusate Sodium (Docusate Sodium 100 Mg Capsule) 100 mg PO BID [facility] Last Admin: 06/20/24 10:29 Dose: 100 mg Ferrous Sulfate (Ferrous Sulfate 324 Mg Tablet.Dr) 324 mg PO DAILY [facility] Last Admin: 06/20/24 10:28 Dose: 324 mg Fluticasone Propionate (Fluticasone Propionate Nasal 16 Gm [place]) 2 spray NOSTRIL-B DAILY PRN PRN Reason: Allergy Symptoms Gabapentin (Gabapentin 100 Mg Capsule) 200 mg PO TID [facility] Hydromorphone HCl (Hydromorphone Hcl 1 Mg/Ml Syringe) 1 mg IVPUSH Q4H PRN; Protocol PRN Reason: Pain, Severe (Pain Scale 7-10) Last Admin: 06/20/24 09:25 Dose: 1 mg Hydroxyzine HCl (Hydroxyzine Hcl 10 Mg Tablet) 10 mg PO Q6H PRN PRN Reason: anxiety Levofloxacin (Levaquin) 500 mg in 100 mls @ 100 mls/hr IV Q24H [facility] Last Infusion: 06/19/24 17:04 Dose: Infused Levofloxacin (Levaquin) 250 mg in 50 mls @ 50 mls/hr IV Q24H [facility] Last Infusion: 06/19/24 18:26 Dose: Infused Sodium Chloride (Ns) 1,000 mls @ 50 mls/hr IVCONT .Q20H [facility] Last Infusion: 06/20/24 13:18 Dose: 50 mls/hr Insulin Human Lispro (Insulin Lispro 100 Unit/Ml 3 Ml Vial) 0 unit SUBCUT QIDACHS [facility]; Protocol Last Admin: 06/20/24 11:53 Dose: Not Given Lactulose (Lactulose 20 Gm/30 Ml Solution) 10 gm PO DAILY [facility] Last Admin: 06/20/24 10:27 Dose: 10 gm Levothyroxine Sodium (Levothyroxine Sodium 200 Mcg Tablet) 400 mcg PO DAILY@0600 [facility] Last Admin: 06/20/24 05:16 Dose: Not Given Lidocaine (Lidocaine 4 % Patch Adh..Patch) 1 patch TRANSDERMA DAILY PRN PRN Reason: Pain Magnesium Hydroxide (Milk Of Magnesia 30 Ml Oral.Susp) 30 ml PO DAILY PRN PRN Reason: Constipation Melatonin (Melatonin 3 Mg Tablet) 6 mg PO BEDTIME PRN PRN Reason: Insomnia Last Admin: 06/19/24 20:22 Dose: 6 mg Multivitamins/Vitamin C (Multivitamin Tablet) 1 tab PO DAILY [facility] Last Admin: 06/20/24 10:28 Dose: 1 tab Naloxone HCl (Naloxone Hcl Nasal 4 Mg [place]) 4 mg NOSTRILALT DAILY PRN PRN Reason: opioid overdose Omeprazole (Omeprazole 20 Mg Capsule.Dr) 20 mg PO DAILY@0630 [facility] Last Admin: 06/20/24 05:16 Dose: Not Given Ondansetron HCl (Ondansetron Hcl 4 Mg/2 Ml Vial) 4 mg IVPUSH Q8H PRN PRN Reason: Nausea and Vomiting Last Admin: 06/20/24 04:21 Dose: 4 mg Oxycodone HCl (Oxycodone Hcl Immed Release 15 Mg Tablet) 7.5 mg PO QID PRN PRN Reason: Pain, Moderate Last Admin: 06/19/24 17:53 Dose: 7.5 mg Paroxetine HCl (Paroxetine Hcl 40 Mg Tablet) 40 mg PO DAILY [facility] Last Admin: 06/20/24 10:29 Dose: 40 mg Sodium Chloride (0.9 % Sodium Chloride Flush 3 Ml Syringe) [facility] Admin: 06/20/24 09:10 Dose: Not Given Zolpidem Tartrate (Zolpidem Tartrate 5 Mg Tablet) 10 mg PO BEDTIME PRN PRN Reason: Sleep Home Medications ?Medication ?Instructions ?Recorded ?Confirmed ?Type levothyroxine 200 mcg tablet 400 mcg PO DAILY@0600 02/26/21 06/19/24 History lidocaine 5 % topical patch 1 patch topical DAILY PRN Pain 02/26/21 06/19/24 History multivitamin with folic acid 400 1 tab PO DAILY 02/26/21 06/19/24 History mcg tablet (Daily-[place] (with folic acid)) oxycodone-acetaminophen 7.5 mg-325 1 tab PO QID PRN Pain, Moderate 02/26/21 06/19/24 History mg tablet pantoprazole 20 mg tablet,delayed 20 mg PO DAILY@0630 02/26/21 06/19/24 History release paroxetine HCl 40 mg tablet 40 mg PO DAILY 02/26/21 06/19/24 History zolpidem 10 mg tablet 10 mg PO BEDTIME PRN Sleep 02/26/21 06/19/24 History diclofenac sodium 1 % topical gel 2 g topical BID PRN Pain 02/10/22 06/19/24 History docusate sodium 100 mg capsule 100 mg PO BID 02/10/22 06/19/24 History fluticasone propionate 50 2 spray intranasal DAILY PRN 02/10/22 06/19/24 History mcg/actuation nasal Allergy Symptoms spray,suspension losartan 25 mg tablet 25 mg PO DAILY 02/10/22 06/19/24 History naloxone 4 mg/actuation nasal 1 spray intranasal DAILY PRN 02/10/22 06/19/24 History spray (Narcan) Opioid Overdose ondansetron HCl 4 mg tablet 4 mg PO TID PRN nausea 02/10/22 06/19/24 History albuterol sulfate 90 mcg/actuation 2 puff inhalation Q4-6H PRN 06/19/24 06/19/24 History aerosol inhaler (Ventolin HFA) Shortness Of Breath Or Wheezing dulaglutide 0.75 mg/0.5 mL 0.75 mg subcut SA 06/19/24 06/19/24 History subcutaneous pen injector (Trulicity) empagliflozin 12.5 mg-metformin ER 1 tab PO DAILY 06/19/24 06/19/24 History 1,000 mg tablet,extended rel 24 hr (Synjardy XR) ferrous sulfate 325 mg (65 mg 325 mg PO DAILY 06/19/24 06/19/24 History iron) tablet gabapentin 400 mg capsule 400 mg PO TID 06/19/24 06/19/24 History hydroxyzine HCl 10 mg tablet 10 - 20 mg PO Q6H PRN anxiety 06/19/24 06/19/24 History lactulose 10 gram/15 mL oral 15 ml PO DAILY 06/19/24 06/19/24 History solution Allergies Allergy/AdvReac Type Severity Reaction Status Date / Time cortisone [CORTISONE] Allergy Mild RASH Verified 06/18/24 14:02 Penicillins [PENICILLINS] Allergy Mild RASH Verified 06/18/24 14:02 bee pollen [BEE STINGS] Allergy Unknown ANAPHYLAXIS Verified 06/18/24 14:02 penicillin V Allergy Unknown Itching Verified 06/18/24 14:02 adhesive Allergy Rash Verified 06/18/24 14:02 Cortisone Allergy Unknown Itching Uncoded 03/29/24 13:11 Physical Exam Vital signs: Vital Signs Temp 97.6 F 06/20/24 12:00 Pulse 76 06/20/24 12:00 Resp 16 06/20/24 12:00 BP 93/55 L 06/20/24 12:00 Pulse Ox 95 06/20/24 12:00 O2 Del Method Nasal Cannula 06/20/24 12:00 O2 Flow Rate 1 06/20/24 12:00 Intake & Output 06/19/24 06/20/24 06/20/24 18:59 06:59 18:59 Intake Total 1611.1 / 4088.600 2477.500 / 4088.600 1036.667 / 1036.667 Output Total Balance 1586.1 / 4053.600 2467.500 / 4053.600 1036.667 / 1036.667 Urine Output (Average ml/kg/hr) 0.01 0.01 0.01 Intake: Intake, Oral Amount 340 / 980 640 / 980 Intake, IV Amount 1271.1 / 3108.600 1837.500 / 3108.600 1036.667 / 1036.667 Lactated Ringers 1,000 ml @ 999 566.1 / 566.1 mls/hr IV .Q1H1M SYDN[facility] Rx#: [id number] levoFLOXacin/D5W 250 mg In 50 50 / 50 ml @ 50 mls/hr IV Q24H [facility] Rx#: [id number] levoFLOXacin/D5W 500 mg In 100 100 / 100 ml @ 100 mls/hr IV Q24H SY[facility] Rx# :[id number] 0.9 % Sodium Chloride 1,000 ml 1837.500 / 4288.872 9733.667 / 1036.667 @ 125 mls/hr IVCONT .Q8H [facility] Rx #:[id number] Lactated Ringers 1,000 ml @ 125 545 / 545 mls/hr IVCONT .Q8H [facility] Rx#: [id number] Output: Output, Urine Amount (Catheter) 2-way Urethral Other: Meal Refused No NPO Yes Breakfast % Eaten not here Lunch % Eaten 100% Dinner % Eaten 50% Eating (Feeding) Ability Independent Number of Bowel Movements 0 Urine cant void Urine Color Yellow Last Bowel Movement 06/18/24 06/18/24 06/18/24 Continuous Bladder Irrigation Fluid - Amount Drained 2-way Urethral 0 Weight 160.1 kg Weight in Grams [id number] Weight 160.1 kg - Constitutional Present: mild distress, morbidly obese - Routine HEENT Exam Head: Present: normal inspection Eye: Present: conjunctivae pale - Routine Neck Exam Present: supple - Routine Respiratory Exam Absent: accessory muscle use, wheezes - Routine Cardiovascular Exam Cardiovascular: Present: S1, S2 - Routine Abdominal Exam Present: distended, soft - Routine Extremities Exam Present: pulses intact, pedal edema Hem/Onc Consult Result - Labs CBC & Chem 7: 06/21/24 06:25 06/21/24 06:25 Labs: Short CBC 06/20/24 Range/Units 05:19 WBC 23.0 H (4.8-10.8) X10*3/uL Hgb 7.7 L (12.0-16.0) g/dl Hct 25.4 L (37.0-47.0) % Plt Count 391 (160-400) X10*3/uL BMP 06/19/24 06/20/24 22:44 05:19 Sodium 130 L 132 L Potassium 5.6 H 5.7 H Chloride 100 100 Carbon Dioxide 20 L 19 L BUN 39 H 43 H Creatinine 3.09 H 3.70 H Calcium 7.6 L 8.1 L D Assessment and Plan Patient Active problem list reviewed?: Yes (1) Liver masses Status: Acute Assessment and plan: 1. This is a 59-year-old woman with morbid obesity, remote history of colon cancer presenting with multiple liver masses and acute renal failure. Patient presented with abdominal pain, CT abdomen/pelvis without contrast shows multiple low-density masses within the hepatic parenchyma. Anterior abdominal wall hernia measuring 19 cm containing thickened small bowel loops and small amount of fluid. Small amount of pelvic ascites. Severe degree of hepatic metastatic disease as per report. As per patient report as well as her daughters report, patient was followed by Dr. Song at [facility] for history of colon cancer. She underwent surgery 5 years ago followed by 4 months of chemotherapy. She just had her MediPort removed. She does not recall if she had any scan at [facility] last year. She however was never diagnosed with metastatic cancer, she was told she was cured and she was to have her last follow up with Dr. Song this week. Patient is now presenting with diffuse liver lesions with cholestatic picture, renal failure and worsening anemia. She reports no symptoms of ongoing infection, blood cultures thus far are negative. Possible etiology is aggressive metastatic disease causing multiorgan failure. Liver biopsy can be performed to confirm diagnosis. Submit LDH, CEA and haptoglobin. Transfuse blood as needed. I will follow with you, thank you for the consultation. I have requested records from [facility]. All of the above was explained to patient and daughter in the presence of director of hemophilia. - Time Spent With Patient Time Spent with Patient (in minutes): 30
[2024-06-20 15:12] LABS: Alanine Aminotransferase 100 U/L (0-31); Albumin Level 2.7 g/dL (3.5-5.0); Alkaline Phosphatase 283 U/L (39-117); Aspartate Amino Transferase 280 U/L (5-31); Bilirubin Direct 2.8 mg/dL (0.0-0.5); Bilirubin Total 3.3 mg/dL (0.0-1.0); Total Protein 6.7 g/dL (6.5-8.0)
[2024-06-20] MEDS: levoFLOXacin/D5W 500 MG/100 ML PIGGYBACK 100 MG IV (15:37)
[2024-06-20] MEDS: 0.9 % Sodium Chloride Flush 3 ML SYRINGE IVFLUSH ×2 (15:38→19:33)
[2024-06-20 16:00] VITALS: BP 94/55; PULSE 84; RESP 22; TEMP 36.2; O2SAT 94
[2024-06-20 16:32] LABS: Glucose, Whole Blood 112 mg/dL (60-115)
[2024-06-20] MEDS: levoFLOXacin/D5W 250 MG/50 ML PIGGYBACK 50 MG IV (16:48)
[2024-06-20 19:32] VITALS: BP 94/55; PULSE 75; RESP 24; TEMP 36.5; O2SAT 91
[2024-06-20] MEDS: bisacodyL 10 MG SUPP.RECT PR (19:32)
[2024-06-20] MEDS: Melatonin 3 MG TABLET 6 MG PO (19:32)
[2024-06-20 19:43] VITALS: O2SAT 94
[2024-06-20 21:08] LABS: Glucose, Whole Blood 100 mg/dL (60-115)
[2024-06-21] VITALS (15 sets, daily range): BP systolic 90–115; BP diastolic 42–60; PULSE 79–91; RESP 16–22; TEMP 36.3–37.8; O2SAT 91–98
[2024-06-21] MEDS: ondansetron HCL 4 MG/2 ML VIAL IVPUSH ×2 (03:57→11:51)
[2024-06-21] MEDS: Omeprazole 20 MG CAPSULE.DR PO (05:08)
[2024-06-21] MEDS: oxyCODONE HCl Immed Release 15 MG TABLET 7.5 MG PO (05:08)
[2024-06-21] MEDS: Levothyroxine Sodium 200 MCG TABLET 400 MCG PO (05:08)
[2024-06-21 06:35] LABS: Hematocrit 24.4 % (37.0-47.0); Hemoglobin 7.5 g/dl (12.0-16.0); Mean Corpuscular HGB Conc 30.7 g/dl (31.0-35.0); Mean Corpuscular Hemoglobin 20.5 pg (27.0-33.0); Mean Corpuscular Volume 66.8 fL (80.0-98.0); Mean Platelet Volume 10.7 fL (9.4-12.3); NRBC Pct Auto 0.5 /100WBC (0.0-0.2); Platelet Count 343 X10*3/uL (160-400); Red Blood Count 3.65 X10*6/uL (4.20-5.50); Red Cell Distribution Width 22.7 % (11.0-16.0)
--- NOTE | 2024-06-21 07:06 | PM.GICN ---
History of Present Illness Data of Consult Service Date: 06/21/24 Primary Care Provider: Osei Fernández MD HPI Reason for consult: liver lesions 59 years old lady with PMH of Colon CA s/p rigt hemicolectomy,, Hx abd hernias , morbid obesity, HTN, DMII, asthma who I am seeing for assessment for abn LFT and liver lesions. I came to see patient but she was somnolent, just returned from liver bx, uncertain if she got sedation, hx from son and chart She initially presented with ruq pain for several days, coming and going, with nausea and bloating but no vomiting. She has hx of colon cancer and was in remission, but imaging this admission revealed possible liver masses. She was also developing renla failure and elevated liver enzymes. US with nml CBD, CT with abdominal wall hernias. UA with nitrite pos, but no growth Review of Systems Review of Systems: Yes Unobtainable due to mental condition and Unobtainable due to mental status PMFSH Past Medical History Medical History HTN (hypertension) Carpal tunnel syndrome of left wrist Asthma Morbid obesity Diabetes Colon cancer Thyroid cancer Family History Pertinent family history: unable to confirm Surgical History Surgical History H/O ventral hernia repair History of removal of laparoscopic gastric banding device Hx of laparoscopic gastric banding H/O colectomy H/O thyroidectomy Social History Social History Household Members: Children Housing: Apartment Do you presently have 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) Patient Tobacco Use Status: Never used Tobacco service: No Current occupational status: disabled Meds Allergies Allergy/AdvReac Type Severity Reaction Status Date / Time cortisone [CORTISONE] Allergy Mild RASH Verified 06/18/24 14:02 Penicillins [PENICILLINS] Allergy Mild RASH Verified 06/18/24 14:02 bee pollen [BEE STINGS] Allergy Unknown ANAPHYLAXIS Verified 06/18/24 14:02 penicillin V Allergy Unknown Itching Verified 06/18/24 14:02 adhesive Allergy Rash Verified 06/18/24 14:02 Cortisone Allergy Unknown Itching Uncoded 03/29/24 13:11 Active Medications: Current Medications Acetaminophen (Acetaminophen 325 Mg Tablet) 650 mg PO Q6H PRN PRN Reason: Pain, Mild 1-3,fever,headache Last Admin: 06/19/24 11:53 Dose: 650 mg Albuterol Sulfate (Albuterol Sulfate 90 Mcg 8 Gm Inhaler) 2 puff INHALE Q4H PRN PRN Reason: Shortness Of Breath Or Wheezing Bisacodyl (Bisacodyl 10 Mg Supp.Rect) 10 mg [facility] BEDTIME [facility] Last Admin: 06/20/24 19:32 Dose: 10 mg Calcium Carbonate (Calcium Carbonate 750 Mg Tab.Chew) 750 mg PO Q4H PRN PRN Reason: Heartburn Docusate Sodium (Docusate Sodium 100 Mg Capsule) 100 mg PO BID [facility] Last Admin: 06/20/24 19:32 Dose: 100 mg Ferrous Sulfate (Ferrous Sulfate 324 Mg Tablet.Dr) 324 mg PO DAILY [facility] Last Admin: 06/20/24 10:28 Dose: 324 mg Fluticasone Propionate (Fluticasone Propionate Nasal 16 Gm Tennyson) 2 spray NOSTRIL-B DAILY PRN PRN Reason: Allergy Symptoms Gabapentin (Gabapentin 100 Mg Capsule) 200 mg PO TID [facility] Last Admin: 06/20/24 22:33 Dose: Not Given Hydromorphone HCl (Hydromorphone Hcl 1 Mg/Ml Syringe) 1 mg IVPUSH Q4H PRN; Protocol PRN Reason: Pain, Severe (Pain Scale 7-10) Last Admin: 06/20/24 09:25 Dose: 1 mg Hydroxyzine HCl (Hydroxyzine Hcl 10 Mg Tablet) 10 mg PO Q6H PRN PRN Reason: anxiety Levofloxacin (Levaquin) 500 mg in 100 mls @ 100 mls/hr IV Q24H [facility] Last Infusion: 06/20/24 16:37 Dose: Infused Levofloxacin (Levaquin) 250 mg in 50 mls @ 50 mls/hr IV Q24H [facility] Last Infusion: 06/20/24 18:09 Dose: Infused Sodium Chloride (Ns) 1,000 mls @ 50 mls/hr IVCONT .Q20H [facility] Last Infusion: 06/20/24 13:18 Dose: 50 mls/hr Insulin Human Lispro (Insulin Lispro 100 Unit/Ml 3 Ml Vial) 0 unit SUBCUT QIDACHS [facility]; Protocol Last Admin: 06/20/24 22:32 Dose: Not Given Lactulose (Lactulose 20 Gm/30 Ml Solution) 10 gm PO DAILY [facility] Last Admin: 06/20/24 10:27 Dose: 10 gm Levothyroxine Sodium (Levothyroxine Sodium 200 Mcg Tablet) 400 mcg PO DAILY@0600 [facility] Last Admin: 06/21/24 05:08 Dose: 400 mcg Lidocaine (Lidocaine 4 % Patch Adh..Patch) 1 patch TRANSDERMA DAILY PRN PRN Reason: Pain Magnesium Hydroxide (Milk Of Magnesia 30 Ml Oral.Susp) 30 ml PO DAILY PRN PRN Reason: Constipation Melatonin (Melatonin 3 Mg Tablet) 6 mg PO BEDTIME PRN PRN Reason: Insomnia Last Admin: 06/20/24 19:32 Dose: 6 mg Multivitamins/Vitamin C (Multivitamin Tablet) 1 tab PO DAILY [facility] Last Admin: 06/20/24 10:28 Dose: 1 tab Naloxone HCl (Naloxone Hcl Nasal 4 Mg Tennyson) 4 mg NOSTRILALT DAILY PRN PRN Reason: opioid overdose Omeprazole (Omeprazole 20 Mg Capsule.Dr) 20 mg PO DAILY@0630 [facility] Last Admin: 06/21/24 05:08 Dose: 20 mg Ondansetron HCl (Ondansetron Hcl 4 Mg/2 Ml Vial) 4 mg IVPUSH Q8H PRN PRN Reason: Nausea and Vomiting Last Admin: 06/21/24 03:57 Dose: 4 mg Oxycodone HCl (Oxycodone Hcl Immed Release 15 Mg Tablet) 7.5 mg PO QID PRN PRN Reason: Pain, Moderate Last Admin: 06/21/24 05:08 Dose: 7.5 mg Paroxetine HCl (Paroxetine Hcl 40 Mg Tablet) 40 mg PO DAILY [facility] Last Admin: 06/20/24 10:29 Dose: 40 mg Sodium Chloride (0.9 % Sodium Chloride Flush 3 Ml Syringe) 3 ml IVFLUSH QSHIFT [facility] Last Admin: 06/20/24 19:33 Dose: 3 ml Zolpidem Tartrate (Zolpidem Tartrate 5 Mg Tablet) 10 mg PO BEDTIME PRN PRN Reason: Sleep Home Medications ?Medication ?Instructions ?Recorded ?Confirmed ?Last Taken ?Type levothyroxine 200 mcg tablet 400 mcg PO DAILY@0600 02/26/21 06/19/24 06/18/24 History lidocaine 5 % topical patch 1 patch topical DAILY PRN Pain 02/26/21 06/19/24 Unknown History multivitamin with folic acid 400 1 tab PO DAILY 02/26/21 06/19/24 06/18/24 History mcg tablet (Daily-Loida (with folic acid)) oxycodone-acetaminophen 7.5 mg-325 1 tab PO QID PRN Pain, Moderate 02/26/21 06/19/24 Unknown History mg tablet pantoprazole 20 mg tablet,delayed 20 mg PO DAILY@0630 02/26/21 06/19/24 06/18/24 History release paroxetine HCl 40 mg tablet 40 mg PO DAILY 02/26/21 06/19/24 06/18/24 History zolpidem 10 mg tablet 10 mg PO BEDTIME PRN Sleep 02/26/21 06/19/24 Unknown History diclofenac sodium 1 % topical gel 2 g topical BID PRN Pain 02/10/22 06/19/24 Unknown History docusate sodium 100 mg capsule 100 mg PO BID 02/10/22 06/19/24 06/18/24 History fluticasone propionate 50 2 spray intranasal DAILY PRN 02/10/22 06/19/24 Unknown History mcg/actuation nasal Allergy Symptoms spray,suspension losartan 25 mg tablet 25 mg PO DAILY 02/10/22 06/19/24 06/18/24 History naloxone 4 mg/actuation nasal 1 spray intranasal DAILY PRN 02/10/22 06/19/24 06/18/24 History spray (Narcan) Opioid Overdose ondansetron HCl 4 mg tablet 4 mg PO TID PRN nausea 02/10/22 06/19/24 Unknown History albuterol sulfate 90 mcg/actuation 2 puff inhalation Q4-6H PRN 06/19/24 06/19/24 Unknown History aerosol inhaler (Ventolin HFA) Shortness Of Breath Or Wheezing dulaglutide 0.75 mg/0.5 mL 0.75 mg subcut SA 06/19/24 06/19/24 06/10/24 History subcutaneous pen injector (Trulicity) empagliflozin 12.5 mg-metformin ER 1 tab PO DAILY 06/19/24 06/19/24 06/18/24 History 1,000 mg tablet,extended rel 24 hr (Synjardy XR) ferrous sulfate 325 mg (65 mg 325 mg PO DAILY 06/19/24 06/19/24 06/18/24 History iron) tablet gabapentin 400 mg capsule 400 mg PO TID 06/19/24 06/19/24 06/18/24 History hydroxyzine HCl 10 mg tablet 10 - 20 mg PO Q6H PRN anxiety 06/19/24 06/19/24 Unknown History lactulose 10 gram/15 mL oral 15 ml PO DAILY 06/19/24 06/19/24 06/18/24 History solution Physical Exam Vital Signs: Vital Signs: Last Vital Signs Temp 97.7 F 06/21/24 03:54 Pulse 83 06/21/24 03:54 Resp 18 06/21/24 03:54 BP 95/48 L 06/21/24 03:54 Pulse Ox 94 06/21/24 03:54 O2 Del Method Nasal Cannula 06/21/24 03:54 O2 Flow Rate 2 06/21/24 03:54 BMI result Body Mass Index 58.7 EXAM: GENERAL: The patient is obese VITAL SIGNS:see workflow HEENT: Nonicteric sclerae, PERRLA, EOMI. Oropharynx clear. Moist mucous membranes. Conjunctivae appear well perfused. No thyroid mass. CHEST: Chest wall is nontender. HEART: Regular rate and rhythm without murmurs. LUNGS: Clear to auscultation bilaterally. ABDOMEN: Soft, positive bowel sounds, nontender, no organomegaly.no flank tenderness--abdominal wall hernia noted SKIN: No rash, no excessive bruising, petechiae, or purpura. NEUROLOGIC: spontaneously moves Psych: unable to assess Results Labs 06/22/24 05:27 06/22/24 05:27 Labs: Short CBC 06/21/24 Range/Units 06:25 WBC 23.0 H (4.8-10.8) X10*3/uL Hgb 7.5 L (12.0-16.0) g/dl Hct 24.4 L (37.0-47.0) % Plt Count 343 (160-400) X10*3/uL Liver Function 06/20/24 Range/Units 05:19 Total Bilirubin 3.3 H (0.0-1.0) mg/dL Direct Bilirubin 2.8 H (0.0-0.5) mg/dL AST 280 H (5-31) U/L ALT 100 H (0-31) U/L Alkaline Phosphatase 283 H (39-117) U/L Albumin 2.7 L (3.5-5.0) g/dL Microbiology Microbiology Results: Microbiology 06/18/24 15:26 Blood - Venous Blood Culture - Preliminary No growth after 48 hours. 06/18/24 15:26 Blood - Venous Blood Culture - Preliminary No growth after 48 hours. 06/18/24 20:10 Urine clean catch - Clean Catch Midstream Urine Culture - Final Imaging CT scan - abdomen: Attestation: I personally reviewed and interpreted this imaging study as follows: (hernias noted, abn liver parenchyma ) Assessment and Plan (1) Liver masses: Status: Acute Plan 1/ Liver masses with prior hx of CRC, now with renal failure and abn LFT, no evidence of cholangitis, CBD is nml, no evidence of budd chiari PLAN: 1/ uncertain cause of her current clinical condition, maybe underlying sepsis from infection, antibiotic coverage is being expanded, LDH and INR also slightly raised may have DIC 2/ would recommend checking acetaminphen level and salicylate but abn LFT could also be due to intrahepatic cholestasis from suspected liver lesions 3/ consider checking FeNA and Feurea and urine Na r/o ATN vs other causes of ARF 4/ prognosis is guarded Procedures Date of Service Date of Service: 06/22/24
[2024-06-21 07:08] LABS: Alanine Aminotransferase 103 U/L (0-31); Albumin Level 2.5 g/dL (3.5-5.0); Alkaline Phosphatase 302 U/L (39-117); Anion Gap 18 (12-20); Aspartate Amino Transferase 327 U/L (5-31); Bilirubin Total 3.5 mg/dL (0.0-1.0); Blood Urea Nitrogen 60 mg/dL (9-16); Calcium 7.9 mg/dL (8.4-10.2); Carbon Dioxide 17 mmol/L (22-29); Chloride 100 mmol/L (96-108); Creatinine Clr Calc Pharmacy 17.3; Estimated Glomerular Filt Rate 8; Glucose Random 84 mg/dL (60-115); Potassium 5.9 mmol/L (3.3-5.1); Sodium 129 mmol/L (135-145); Total Protein 6.5 g/dL (6.5-8.0)
[2024-06-21 07:13] LABS: Ferritin 92 ng/mL (10-250)
[2024-06-21] MEDS: 0.9 % Sodium Chloride 1,000 ML 100 ML IVCONT (07:16)
[2024-06-21] MEDS: Albumin Human 25 % 100 ML IV ×3 (07:17→20:17)
[2024-06-21] MEDS: 0.9 % Sodium Chloride Flush 3 ML SYRINGE IVFLUSH ×2 (07:18→15:16)
[2024-06-21 07:20] LABS: Glucose, Whole Blood 93 mg/dL (60-115)
[2024-06-21] MEDS: Sodium Zirconium Cyclosilicate 10 GM POWD.PACK PO (08:01)
[2024-06-21] MEDS: Docusate Sodium 100 MG CAPSULE PO (08:01)
[2024-06-21] MEDS: PARoxetine HCL 40 MG TABLET PO (08:02)
[2024-06-21] MEDS: Ferrous Sulfate 324 MG TABLET.DR PO (08:02)
[2024-06-21] MEDS: Gabapentin 100 MG CAPSULE 200 MG PO (08:02)
[2024-06-21] MEDS: Multivitamin TABLET 1 TAB PO (08:02)
[2024-06-21] MEDS: Lactulose 20 GM/30 ML SOLUTION 10 GM PO (08:02)
[2024-06-21 08:45] LABS: Venous Blood Gas Refer to POC result
[2024-06-21 08:45] LABS: VBG Base Excess -6.4 mmol/L; VBG HCO3 20 mmol/L (22-26); VBG pCO2 44 mmHg; VBG pH 7.26 (7.32-7.43); VBG pO2 89 mmHg
[2024-06-21 10:03] LABS: Bilirubin Direct 2.9 mg/dL (0.0-0.5); Lactate Dehydrogenase 755 U/L (122-220)
[2024-06-21 10:39] LABS: Haptoglobin 226 mg/dL (63-273)
--- NOTE | 2024-06-21 10:39 | PC.NURSE ---
Pt drowsy but arousable. Denies pain at this time. REpositioned in bariatric bed for comfort. [place] without urine output. IVF NS infusing per MD order. TRansported via bed to have dialysis catheter placed
--- NOTE | 2024-06-21 11:24 | P.CDIM_ITS ---
PROVIDER RESPONSE TEXT: To clarify, the appropriate diagnosis supported by the clinical indicators: Hyponatremia: hyponatremia sec to elva QUERY TEXT: PHYSICIAN'S DOCUMENTATION REQUEST Date of Query: 06/21/2024 06:13 AM EST Patient Name: Luisa Nuñez Admit Date: 06/19/2024 Dear Jax Castro MD, A review of the medical record indicates additional documentation may be needed. Please review below and update the documentation accordingly. Clinical Indicators: LABS: sodium 130 L 134 Fluids Based on the above, is there a diagnosis that correlates with these lab findings: Hyponatremia resolved, possible, probable, suspected etc. Labs indicate a diagnosis of (please specify) Other (explain) Clinically unable to determine (explain) Thank you, Rhiannon Escobar, CCS, CDIS Use of terms such as suspected, likely, concern for, or probable (associated with a specific diagnosi s that is being evaluated, monitored, or treated as if it exists) are acceptable and can be coded in the inpatient se tting, when documented at the time of discharge. Please use your independent medical judgment in providing your response. THIS QUERY IS PART OF THE PERMANENT MEDICAL RECORD
--- NOTE | 2024-06-21 11:24 | P.CDIM_ITS ---
PROVIDER RESPONSE TEXT: To clarify, the appropriate diagnosis supported by the clinical indicators: Other (explain): mixed anemia -iron def /aocd QUERY TEXT: PHYSICIAN'S DOCUMENTATION REQUEST Date of Query: 06/21/2024 09:32 AM EST Patient Name: Luisa Nuñez Admit Date: 06/19/2024 Dear Jax Castro MD, A review of the medical record indicates additional documentation may be needed. Please review below and update the documentation accordingly. Clinical Indicators: Progress notes within the written Plan: Iron def anemia Iron profile - iron stats and levels low, tibc low Start iron supplements. DVT PPX: SCD's for possible blood loss anemia. Iron: 16 L H/H - 7.5/24.4 Based on the above, could you clarify any further specifics between the blood loss anemia and the iro n deficiency anemia, if any: Iron deficiency anemia due to chronic blood loss Iron deficiency anemia due to acute on chronic blood loss Other (explain) Clinically unable to determine (explain) Thank you, Rhiannon Escobar, CCS, CDIS Use of terms such as suspected, likely, concern for, or probable (associated with a specific diagnosi s that is being evaluated, monitored, or treated as if it exists) are acceptable and can be coded in the inpatient se tting, when documented at the time of discharge. Please use your independent medical judgment in providing your response. THIS QUERY IS PART OF THE PERMANENT MEDICAL RECORD
--- NOTE | 2024-06-21 11:49 | PM.PROC ---
Brief Operative Note Date of procedure: 06/21/24 Pre-op diagnosis: JAYSON Post-op diagnosis: same Procedure: Right IJ 20 cm trialysis catheter placed using US and FL. Tip at cavoatrial junction. Ok for use.
[2024-06-21 11:55] LABS: Glucose, Whole Blood 95 mg/dL (60-115)
--- NOTE | 2024-06-21 13:09 | P.PNNP_ITS ---
Subjective Subjective Date of Service: 06/21/24 Interval history: Seen and examined this AM. All recent data reviewed. Urine output poor. Rising serum creatinine with high uric acid & high K. D/W Hospitalist Physical Exam 2 Vital Signs: Vital Signs: Last Vital Signs Temp 97.3 F 06/21/24 12:00 Pulse 89 06/21/24 12:00 Resp 22 H 06/21/24 12:00 BP 90/52 L 06/21/24 12:00 Pulse Ox 91 L 06/21/24 12:00 O2 Del Method Nasal Cannula 06/21/24 12:00 O2 Flow Rate 2 06/21/24 12:00 BMI result Body Mass Index 58.7 Const: General: no acute distress Orientation/consciousness: patient oriented x3 Neck: Neck: Yes no JVD Resp: Auscultation: diminished lung sounds Cardio: Rate: regular rate GI: Palpation (GI): Soft to palpation Neuro: General: patient oriented x3 Objective Data Labs 06/21/24 06:25 06/21/24 06:25 Labs: Laboratory Results - last 24 hr 06/18/24 06/18/24 06/20/24 14:20 15:26 05:19 WBC RBC Hgb Hct MCV MCH MCHC RDW Plt Count MPV Absolute Nucleated RBC Nucleated RBC % (auto) Smear Path Review SEE NOTE VBG pH VBG pCO2 VBG pO2 VBG HCO3 VBG O2 Saturation VBG Base Excess Sodium Potassium Chloride Carbon Dioxide Anion Gap BUN Creatinine Estim Creat Clear Calc Estimated GFR POC Glucose Random Glucose Haptoglobin Calcium Ferritin Total Bilirubin 3.3 H Direct Bilirubin 2.8 H AST 280 H ALT 100 H Alkaline Phosphatase 283 H Lactate Dehydrogenase Total Protein 6.7 Albumin 2.7 L Carcinoembryonic Ag Hold Green Top Blood Type B Positive Antibody Screen NEGATIVE Crossmatch See Detail 06/20/24 06/20/24 06/21/24 16:28 21:04 06:25 WBC 23.0 H RBC 3.65 L Hgb 7.5 L Hct 24.4 L MCV 66.8 L MCH 20.5 L MCHC 30.7 L RDW 22.7 H Plt Count 343 MPV 10.7 Absolute Nucleated RBC 0.110 H Nucleated RBC % (auto) 0.5 H Smear Path Review VBG pH VBG pCO2 VBG pO2 VBG HCO3 VBG O2 Saturation VBG Base Excess Sodium 129 L Potassium 5.9 H Chloride 100 Carbon Dioxide 17 L Anion Gap 18 BUN 60 H Creatinine 5.26 H* Estim Creat Clear Calc 17.3 Estimated GFR 8 POC Glucose 112 100 Random Glucose 84 Haptoglobin Calcium 7.9 L Ferritin 92 Total Bilirubin 3.5 H Direct Bilirubin 2.9 H AST 327 H ALT 103 H Alkaline Phosphatase 302 H Lactate Dehydrogenase 755 H Total Protein 6.5 Albumin 2.5 L Carcinoembryonic Ag 8.10 Hold Green Top See Note Blood Type Antibody Screen Crossmatch 06/21/24 06/21/24 06/21/24 07:15 08:26 10:15 WBC RBC Hgb Hct MCV MCH MCHC RDW Plt Count MPV Absolute Nucleated RBC Nucleated RBC % (auto) Smear Path Review VBG pH 7.26 L VBG pCO2 44 VBG pO2 89 VBG HCO3 20 L VBG O2 Saturation 97.0 VBG Base Excess -6.4 Sodium Potassium Chloride Carbon Dioxide Anion Gap BUN Creatinine Estim Creat Clear Calc Estimated GFR POC Glucose 93 Random Glucose Haptoglobin 226 Calcium Ferritin Total Bilirubin Direct Bilirubin AST ALT Alkaline Phosphatase Lactate Dehydrogenase Total Protein Albumin Carcinoembryonic Ag Hold Green Top Blood Type Antibody Screen Crossmatch 06/21/24 11:49 WBC RBC Hgb Hct MCV MCH MCHC RDW Plt Count MPV Absolute Nucleated RBC Nucleated RBC % (auto) Smear Path Review VBG pH VBG pCO2 VBG pO2 VBG HCO3 VBG O2 Saturation VBG Base Excess Sodium Potassium Chloride Carbon Dioxide Anion Gap BUN Creatinine Estim Creat Clear Calc Estimated GFR POC Glucose 95 Random Glucose Haptoglobin Calcium Ferritin Total Bilirubin Direct Bilirubin AST ALT Alkaline Phosphatase Lactate Dehydrogenase Total Protein Albumin Carcinoembryonic Ag Hold Green Top Blood Type Antibody Screen Crossmatch Microbiology Microbiology Results: Microbiology 06/18/24 15:26 Blood - Venous Blood Culture - Preliminary No growth after 48 hours. 06/18/24 15:26 Blood - Venous Blood Culture - Preliminary No growth after 48 hours. 06/18/24 20:10 Urine clean catch - Clean Catch Midstream Urine Culture - Final Procedures Date of Service Date of Service: 06/21/24 Assessment & Plan Assessment and plan (1) JAYSON (acute kidney injury): Status: Acute Plan JAYSON likely due to ATN vs direct infiltration of B cells into kidney versus tumor lysis( unlikely) Work up in progress; HD catheter today; HD today/tomorrow/Wed( ordered) Needs liver lesions biopsied tomorrow; Likely will need renal biopsy as well Needs cortisol level given hypotension and hyperkalemia( ? infiltration of adrenal) ECHO; C/W rest of current supportive care for now Progress Note: Quality Stroke Does the patient have a stroke diagnosis?: No
[2024-06-21] MEDS: oxyCODONE HCl Immed Release 5 MG TABLET 7.5 MG PO (13:14)
[2024-06-21 13:34] LABS: Complement C3 102 mg/dL (83-193)
[2024-06-21 13:35] LABS: Uric Acid 13.5 mg/dL (2.4-5.7)
--- NOTE | 2024-06-21 13:47 | P.PNIM_ITS ---
Subjective Subjective Date of Service: 06/21/24 Interval History: jayson ,liver masses (?malignancy). hyperkalemia Review of Systems seems similar generalized weakness , ext swelling no fever Physical Exam 2 Vital Signs: Vital Signs: Last Vital Signs Temp 97.3 F 06/21/24 12:00 Pulse 89 06/21/24 12:00 Resp 22 H 06/21/24 12:00 BP 90/52 L 06/21/24 12:00 Pulse Ox 91 L 06/21/24 12:00 O2 Del Method Nasal Cannula 06/21/24 12:00 O2 Flow Rate 2 06/21/24 12:00 BMI result Body Mass Index 58.7 General: AO X 3, generalised weak. Resp: air entry fair ,no rales or wheezing. CVS: [id number]. GI: large upper abdominal hernia palpable which is soft. Skin: No rash,lower ext edema. Neuro: motor grossly intact Psych: appropriate affect Objective Data Active Medications Acetaminophen (Acetaminophen 325 Mg Tablet) 650 mg PO Q6H PRN PRN Reason: Pain, Mild 1-3,fever,headache Last Admin: 06/19/24 11:53 Dose: 650 mg Documented By: DESI Albuterol Sulfate (Albuterol Sulfate 90 Mcg 8 Gm Inhaler) 2 puff INHALE Q4H PRN PRN Reason: Shortness Of Breath Or Wheezing Bisacodyl (Bisacodyl 10 Mg Supp.Rect) 10 mg [place] BEDTIME [facility] Last Admin: 06/20/24 19:32 Dose: 10 mg Documented By: RICHELLE Calcium Carbonate (Calcium Carbonate 750 Mg Tab.Chew) 750 mg PO Q4H PRN PRN Reason: Heartburn Docusate Sodium (Docusate Sodium 100 Mg Capsule) 100 mg PO BID [facility] Last Admin: 06/21/24 08:01 Dose: 100 mg Documented By: JAN Ferrous Sulfate (Ferrous Sulfate 324 Mg Tablet.Dr) 324 mg PO DAILY [facility] Last Admin: 06/21/24 08:02 Dose: 324 mg Documented By: JAN Fluticasone Propionate (Fluticasone Propionate Nasal 16 Gm [place]) 2 spray NOSTRIL-B DAILY PRN PRN Reason: Allergy Symptoms Heparin Sodium (Porcine) (Heparin Sodium,Porcine 5,000 Unit/Ml Vial) 5,000 unit INTRACATH ONCE ONE Stop: 06/22/24 06:01 Heparin Sodium (Porcine) (Heparin Sodium,Porcine 5,000 Unit/Ml Vial) 5,000 unit INTRACATH ONCE ONE Stop: 06/23/24 06:01 Levofloxacin (Levaquin) 500 mg in 100 mls @ 100 mls/hr IV Q24H [facility] Last Infusion: 06/20/24 16:37 Dose: Infused Documented By: COLTEN Levofloxacin (Levaquin) 250 mg in 50 mls @ 50 mls/hr IV Q24H [facility] Last Infusion: 06/20/24 18:09 Dose: Infused Documented By: COLTEN Sodium Chloride (Ns) 1,000 mls @ 100 mls/hr IVCONT .Q10H [facility] Last Admin: 06/21/24 13:11 Dose: Not Given Documented By: DESI Non-Admin Reason: IV Running Albumin Human (Kedbumin 25 %) 100 mls @ 100 mls/hr IV Q6H [facility] Stop: 06/22/24 02:14 Last Admin: 06/21/24 13:07 Dose: 100 mls/hr Documented By: DESI Insulin Human Lispro (Insulin Lispro 100 Unit/Ml 3 Ml Vial) 0 unit SUBCUT QIDACHS [facility]; Protocol Last Admin: 06/21/24 12:34 Dose: Not Given Documented By: JEROMY Non-Admin Reason: No Insulin Coverage Lactulose (Lactulose 20 Gm/30 Ml Solution) 10 gm PO DAILY [facility] Last Admin: 06/21/24 08:02 Dose: 10 gm Documented By: JAN Levothyroxine Sodium (Levothyroxine Sodium 200 Mcg Tablet) 400 mcg PO DAILY@0600 [facility] Last Admin: 06/21/24 05:08 Dose: 400 mcg Documented By: RICHELLE Lidocaine (Lidocaine 4 % Patch Adh..Patch) 1 patch TRANSDERMA DAILY PRN PRN Reason: Pain Magnesium Hydroxide (Milk Of Magnesia 30 Ml Oral.Susp) 30 ml PO DAILY PRN PRN Reason: Constipation Melatonin (Melatonin 3 Mg Tablet) 6 mg PO BEDTIME PRN PRN Reason: Insomnia Last Admin: 06/20/24 19:32 Dose: 6 mg Documented By: RICHELLE Multivitamins/Vitamin C (Multivitamin Tablet) 1 tab PO DAILY [facility] Last Admin: 06/21/24 08:02 Dose: 1 tab Documented By: JAN Naloxone HCl (Naloxone Hcl Nasal 4 Mg [place]) 4 mg NOSTRILALT DAILY PRN PRN Reason: opioid overdose Omeprazole (Omeprazole 20 Mg Capsule.Dr) 20 mg PO DAILY@0630 [facility] Last Admin: 06/21/24 05:08 Dose: 20 mg Documented By: RICHELLE Ondansetron HCl (Ondansetron Hcl 4 Mg/2 Ml Vial) 4 mg IVPUSH Q6H PRN PRN Reason: Nausea and Vomiting Last Admin: 06/21/24 11:51 Dose: 4 mg Documented By: JEROMY Oxycodone HCl (Oxycodone Hcl Immed Release 5 Mg Tablet) 7.5 mg PO Q6H PRN PRN Reason: Pain, Severe (Pain Scale 7-10) Last Admin: 06/21/24 13:14 Dose: 7.5 mg Documented By: DESI Paroxetine HCl (Paroxetine Hcl 40 Mg Tablet) 40 mg PO DAILY [facility] Last Admin: 06/21/24 08:02 Dose: 40 mg Documented By: JAN Sodium Chloride (0.9 % Sodium Chloride Flush 3 Ml Syringe) 3 ml IVFLUSH QSHIFT [facility] Last Admin: 06/21/24 07:18 Dose: 3 ml Documented By: JEROMY Zolpidem Tartrate (Zolpidem Tartrate 5 Mg Tablet) 10 mg PO BEDTIME PRN PRN Reason: Sleep Labs 06/21/24 06:25 06/21/24 06:25 Labs: Laboratory Results - last 24 hr 06/18/24 06/18/24 06/20/24 14:20 15:26 05:19 MCV MCH MCHC RDW Plt Count MPV Absolute Nucleated RBC Nucleated RBC % (auto) Smear Path Review SEE NOTE VBG pH VBG pCO2 VBG pO2 VBG HCO3 VBG O2 Saturation VBG Base Excess Anion Gap Estim Creat Clear Calc Estimated GFR POC Glucose Random Glucose Haptoglobin Uric Acid Calcium Ferritin Total Bilirubin 3.3 H Direct Bilirubin 2.8 H AST 280 H ALT 100 H Alkaline Phosphatase 283 H Lactate Dehydrogenase Total Protein 6.7 Albumin 2.7 L Carcinoembryonic Ag Hold Green Top Complement C3 102 Complement C4 31 Blood Type B Positive Antibody Screen NEGATIVE Crossmatch See Detail 06/20/24 06/20/24 06/21/24 16:28 21:04 06:25 MCV 66.8 L MCH 20.5 L MCHC 30.7 L RDW 22.7 H Plt Count 343 MPV 10.7 Absolute Nucleated RBC 0.110 H Nucleated RBC % (auto) 0.5 H Smear Path Review VBG pH VBG pCO2 VBG pO2 VBG HCO3 VBG O2 Saturation VBG Base Excess Anion Gap 18 Estim Creat Clear Calc 17.3 Estimated GFR 8 POC Glucose 112 100 Random Glucose 84 Haptoglobin Uric Acid 13.5 H Calcium 7.9 L Ferritin 92 Total Bilirubin 3.5 H Direct Bilirubin 2.9 H AST 327 H ALT 103 H Alkaline Phosphatase 302 H Lactate Dehydrogenase 755 H Total Protein 6.5 Albumin 2.5 L Carcinoembryonic Ag 8.10 Hold Green Top See Note Complement C3 Complement C4 Blood Type Antibody Screen Crossmatch 06/21/24 06/21/24 06/21/24 07:15 08:26 10:15 MCV MCH MCHC RDW Plt Count MPV Absolute Nucleated RBC Nucleated RBC % (auto) Smear Path Review VBG pH 7.26 L VBG pCO2 44 VBG pO2 89 VBG HCO3 20 L VBG O2 Saturation 97.0 VBG Base Excess -6.4 Anion Gap Estim Creat Clear Calc Estimated GFR POC Glucose 93 Random Glucose Haptoglobin 226 Uric Acid Calcium Ferritin Total Bilirubin Direct Bilirubin AST ALT Alkaline Phosphatase Lactate Dehydrogenase Total Protein Albumin Carcinoembryonic Ag Hold Green Top Complement C3 Complement C4 Blood Type Antibody Screen Crossmatch 06/21/24 11:49 MCV MCH MCHC RDW Plt Count MPV Absolute Nucleated RBC Nucleated RBC % (auto) Smear Path Review VBG pH VBG pCO2 VBG pO2 VBG HCO3 VBG O2 Saturation VBG Base Excess Anion Gap Estim Creat Clear Calc Estimated GFR POC Glucose 95 Random Glucose Haptoglobin Uric Acid Calcium Ferritin Total Bilirubin Direct Bilirubin AST ALT Alkaline Phosphatase Lactate Dehydrogenase Total Protein Albumin Carcinoembryonic Ag Hold Green Top Complement C3 Complement C4 Blood Type Antibody Screen Crossmatch Microbiology Microbiology Results: Microbiology 06/18/24 15:26 Blood Culture - Preliminary Blood - Venous No growth after 48 hours. 06/18/24 15:26 Blood Culture - Preliminary Blood - Venous No growth after 48 hours. 06/18/24 20:10 Urine Culture - Final Urine clean catch - Clean Catch Midstream Assessment and Plan (1) Liver masses: Status: Acute Assessment and Plan: 59/F w/ PMH of Colon CA post Rt colectomy 5 years ago, follows with [facility] oncology, Hx abd hernias , morbid obesity, HTN, DMII, asthma among others who presents to hospital with abdominal pain and inability to tolerate PO and found to have sepsis d/t uti sepsis 2/ UTI blood culture negative no fever urine culture -mixed floor(contaminant). IV Levaquin for now started 06/18/24,added flagyl . JAYSON--likey ATN from renal hypoperfusion from hypotension haptoglobin levels normal renal evaluation noted-anca addded ,c3,c4 ,myeloperoxidase ,proteinase pending renal us-seems fine . Hyperkalemia d/t renal failure ext swelling vbg ph 7.26,bicarb 17 plan: not much urine output need hd . nephrology following fluid changed to bicard/d5w added calcium gluonate and loklema for hyperkalemia . Abdominal pain with Transaminitis US negative for acute cholecystitis CT scan as reported, likely liver masses elevated LDH( trending up), ALP and GGT; uric acid elevated (trending up) :? in setting of liver mass heptoglobin normal CEA elevated 8.1 . plan: slowly LFT trending up oncology/hematology eval -diffuse liver lesions with cholestatic picture, renal failure and worsening anemia. She reports no symptoms of ongoing infection, blood cultures thus far are negative. (differential-possible new liver malignancy considering she was never diagnosed with metastatic cancer, she was told she was cured and she was to have her last follow up with Dr. Song this we Liver biopsy can be performed to confirm diagnosis.placed orders for liver biopsy d/w surgery and icu -? very large incisional hernia/worsening renal function ,has 1 bm since admission -?early bowel ischemia . acute Lactic acidosis -thought to be likely from Metformin and liver mass, not sepsis. received IVF monitor as needed Hypotension-blood pressure boderline , will check cortisol levels d/w Icu -added fluids changed to bicarb/d5w@100 ml/hr ,albumin Iron def. Anemia h/h is around iron profile -iron sats and levels low ,tibc low start iron supplement denies any melena or aj blood in stool DVT PPX SCDs for possible blood loss anemia due to progressive worsening of jayson and liver dis as well as possible suspected ?hernia related ischmia: patient management discussed with Icu as well as surgery indetail: called placed for teriary care transfer : call for [facility] placed and information given. family made aware -they in agreement with above plan:patient prognosis guarded. patient is full code. Quality Stroke Does the patient have a stroke diagnosis?: No VTE Prior VTE?: No VTE Risk Level:: Medical - moderate - high VTE Device Contraindication: N/A - Device Ordered VTE Drug Contraindication: Treatment Not Indicated
--- NOTE | 2024-06-21 14:52 | MHC.CM.PN ---
EMR REVIEWED AND PER MD ROUNDS, PT IS NOT MEDICALLY CLEARED FOR DC (LIVER BIOPSY) CM WILL CONTINUE TO FOLLOW FOR ANY CHANGE TO DC PLAN.
[2024-06-21 15:02] LABS: Cortisol Random 26.3 ug/dL
--- NOTE | 2024-06-21 15:09 | P.PNGS_ITS ---
Subjective Subjective Date of Service: 06/21/24 Interval history: Had tunnel catheter placed earlier today for HD. Somnolent. Son at bedside. Physical Exam 2 Vital Signs: Vital Signs: Last Vital Signs Temp 97.3 F 06/21/24 12:00 Pulse 89 06/21/24 12:00 Resp 22 H 06/21/24 12:00 BP 90/52 L 06/21/24 12:00 Pulse Ox 91 L 06/21/24 12:00 O2 Del Method Nasal Cannula 06/21/24 12:00 O2 Flow Rate 2 06/21/24 12:00 BMI result Body Mass Index 58.7 GI: Other: very corpulent abdomen, large upper abdominal hernia palpable which is soft Objective Data Active Medications Acetaminophen (Acetaminophen 325 Mg Tablet) 650 mg PO Q6H PRN PRN Reason: Pain, Mild 1-3,fever,headache Last Admin: 06/19/24 11:53 Dose: 650 mg Documented By: DESI Albuterol Sulfate (Albuterol Sulfate 90 Mcg 8 Gm Inhaler) 2 puff INHALE Q4H PRN PRN Reason: Shortness Of Breath Or Wheezing Bisacodyl (Bisacodyl 10 Mg Supp.Rect) 10 mg UT BEDTIME [facility] Last Admin: 06/20/24 19:32 Dose: 10 mg Documented By: RICHELLE Calcium Carbonate (Calcium Carbonate 750 Mg Tab.Chew) 750 mg PO Q4H PRN PRN Reason: Heartburn Docusate Sodium (Docusate Sodium 100 Mg Capsule) 100 mg PO BID [facility] Last Admin: 06/21/24 08:01 Dose: 100 mg Documented By: JAN Ferrous Sulfate (Ferrous Sulfate 324 Mg Tablet.Dr) 324 mg PO DAILY [facility] Last Admin: 06/21/24 08:02 Dose: 324 mg Documented By: JAN Fluticasone Propionate (Fluticasone Propionate Nasal 16 Gm [place]) 2 spray NOSTRIL-B DAILY PRN PRN Reason: Allergy Symptoms Heparin Sodium (Porcine) (Heparin Sodium,Porcine 5,000 Unit/Ml Vial) 5,000 unit INTRACATH ONCE ONE Stop: 06/22/24 06:01 Heparin Sodium (Porcine) (Heparin Sodium,Porcine 5,000 Unit/Ml Vial) 5,000 unit INTRACATH ONCE ONE Stop: 06/23/24 06:01 Levofloxacin (Levaquin) 500 mg in 100 mls @ 100 mls/hr IV Q24H [facility] Last Infusion: 06/20/24 16:37 Dose: Infused Documented By: COLTEN Levofloxacin (Levaquin) 250 mg in 50 mls @ 50 mls/hr IV Q24H [facility] Last Infusion: 06/20/24 18:09 Dose: Infused Documented By: COLTEN Sodium Chloride (Ns) 1,000 mls @ 100 mls/hr IVCONT .Q10H [facility] Last Admin: 06/21/24 13:11 Dose: Not Given Documented By: DESI Non-Admin Reason: IV Running Albumin Human (Kedbumin 25 %) 100 mls @ 100 mls/hr IV Q6H [facility] Stop: 06/22/24 02:14 Last Infusion: 06/21/24 14:12 Dose: Infused Documented By: JEROMY Insulin Human Lispro (Insulin Lispro 100 Unit/Ml 3 Ml Vial) 0 unit SUBCUT QIDACHS [facility]; Protocol Last Admin: 06/21/24 12:34 Dose: Not Given Documented By: JEROMY Non-Admin Reason: No Insulin Coverage Lactulose (Lactulose 20 Gm/30 Ml Solution) 10 gm PO DAILY [facility] Last Admin: 06/21/24 08:02 Dose: 10 gm Documented By: JAN Levothyroxine Sodium (Levothyroxine Sodium 200 Mcg Tablet) 400 mcg PO DAILY@0600 [facility] Last Admin: 06/21/24 05:08 Dose: 400 mcg Documented By: RICHELLE Lidocaine (Lidocaine 4 % Patch Adh..Patch) 1 patch TRANSDERMA DAILY PRN PRN Reason: Pain Magnesium Hydroxide (Milk Of Magnesia 30 Ml Oral.Susp) 30 ml PO DAILY PRN PRN Reason: Constipation Melatonin (Melatonin 3 Mg Tablet) 6 mg PO BEDTIME PRN PRN Reason: Insomnia Last Admin: 06/20/24 19:32 Dose: 6 mg Documented By: RICHELLE Multivitamins/Vitamin C (Multivitamin Tablet) 1 tab PO DAILY [facility] Last Admin: 06/21/24 08:02 Dose: 1 tab Documented By: JAN Naloxone HCl (Naloxone Hcl Nasal 4 Mg [place]) 4 mg NOSTRILALT DAILY PRN PRN Reason: opioid overdose Omeprazole (Omeprazole 20 Mg Capsule.Dr) 20 mg PO DAILY@0630 [facility] Last Admin: 06/21/24 05:08 Dose: 20 mg Documented By: RICHELLE Ondansetron HCl (Ondansetron Hcl 4 Mg/2 Ml Vial) 4 mg IVPUSH Q6H PRN PRN Reason: Nausea and Vomiting Last Admin: 06/21/24 11:51 Dose: 4 mg Documented By: JEROMY Oxycodone HCl (Oxycodone Hcl Immed Release 5 Mg Tablet) 7.5 mg PO Q6H PRN PRN Reason: Pain, Severe (Pain Scale 7-10) Last Admin: 06/21/24 13:14 Dose: 7.5 mg Documented By: DESI Paroxetine HCl (Paroxetine Hcl 40 Mg Tablet) 40 mg PO DAILY [facility] Last Admin: 06/21/24 08:02 Dose: 40 mg Documented By: JAN Sodium Chloride (0.9 % Sodium Chloride Flush 3 Ml Syringe) 3 ml IVFLUSH QSHIFT [facility] Last Admin: 06/21/24 07:18 Dose: 3 ml Documented By: JEROMY Zolpidem Tartrate (Zolpidem Tartrate 5 Mg Tablet) 10 mg PO BEDTIME PRN PRN Reason: Sleep Labs 06/21/24 06:25 06/21/24 06:25 Labs: Laboratory Results - last 24 hr 06/18/24 06/18/24 06/20/24 14:20 15:26 05:19 MCV MCH MCHC RDW Plt Count MPV Absolute Nucleated RBC Nucleated RBC % (auto) Smear Path Review SEE NOTE VBG pH VBG pCO2 VBG pO2 VBG HCO3 VBG O2 Saturation VBG Base Excess Anion Gap Estim Creat Clear Calc Estimated GFR POC Glucose Random Glucose Haptoglobin Uric Acid Calcium Ferritin Total Bilirubin 3.3 H Direct Bilirubin 2.8 H AST 280 H ALT 100 H Alkaline Phosphatase 283 H Lactate Dehydrogenase Total Protein 6.7 Albumin 2.7 L Carcinoembryonic Ag Random Cortisol Hold Green Top Complement C3 102 Complement C4 31 Blood Type B Positive Antibody Screen NEGATIVE Crossmatch See Detail 06/20/24 06/20/24 06/21/24 16:28 21:04 06:25 MCV 66.8 L MCH 20.5 L MCHC 30.7 L RDW 22.7 H Plt Count 343 MPV 10.7 Absolute Nucleated RBC 0.110 H Nucleated RBC % (auto) 0.5 H Smear Path Review VBG pH VBG pCO2 VBG pO2 VBG HCO3 VBG O2 Saturation VBG Base Excess Anion Gap 18 Estim Creat Clear Calc 17.3 Estimated GFR 8 POC Glucose 112 100 Random Glucose 84 Haptoglobin Uric Acid 13.5 H Calcium 7.9 L Ferritin 92 Total Bilirubin 3.5 H Direct Bilirubin 2.9 H AST 327 H ALT 103 H Alkaline Phosphatase 302 H Lactate Dehydrogenase 755 H Total Protein 6.5 Albumin 2.5 L Carcinoembryonic Ag 8.10 Random Cortisol Hold Green Top See Note Complement C3 Complement C4 Blood Type Antibody Screen Crossmatch 06/21/24 06/21/24 06/21/24 07:15 08:26 10:15 MCV MCH MCHC RDW Plt Count MPV Absolute Nucleated RBC Nucleated RBC % (auto) Smear Path Review VBG pH 7.26 L VBG pCO2 44 VBG pO2 89 VBG HCO3 20 L VBG O2 Saturation 97.0 VBG Base Excess -6.4 Anion Gap Estim Creat Clear Calc Estimated GFR POC Glucose 93 Random Glucose Haptoglobin 226 Uric Acid Calcium Ferritin Total Bilirubin Direct Bilirubin AST ALT Alkaline Phosphatase Lactate Dehydrogenase Total Protein Albumin Carcinoembryonic Ag Random Cortisol Hold Green Top Complement C3 Complement C4 Blood Type Antibody Screen Crossmatch 06/21/24 06/21/24 11:49 13:59 MCV MCH MCHC RDW Plt Count MPV Absolute Nucleated RBC Nucleated RBC % (auto) Smear Path Review VBG pH VBG pCO2 VBG pO2 VBG HCO3 VBG O2 Saturation VBG Base Excess Anion Gap Estim Creat Clear Calc Estimated GFR POC Glucose 95 Random Glucose Haptoglobin Uric Acid Calcium Ferritin Total Bilirubin Direct Bilirubin AST ALT Alkaline Phosphatase Lactate Dehydrogenase Total Protein Albumin Carcinoembryonic Ag Random Cortisol 26.3 Hold Green Top Complement C3 Complement C4 Blood Type Antibody Screen Crossmatch Microbiology Microbiology Results: Microbiology 06/18/24 15:26 Blood Culture - Preliminary Blood - Venous No growth after 48 hours. 06/18/24 15:26 Blood Culture - Preliminary Blood - Venous No growth after 48 hours. 06/18/24 20:10 Urine Culture - Final Urine clean catch - Clean Catch Midstream Procedures Date of Service Date of Service: 06/21/24 Progress Note: A&P Assessment and plan (1) Incisional hernia: Status: Acute (2) JAYSON (acute kidney injury): Status: Acute Plan Again, patient has a very large incisional hernia with bowel and loss of domain present. Her abdomen and the hernia itself is soft, has had a BM while inpatient. However worsening ?unexplained renal function and [employer] concerned for possible early bowel ischemia. Would need transfer to tertiary center for any possible surgical intervention. Discussed with scrummaster, hospitalist. Time Spent With Patient Time: Total time managing care of this patient today ____ minutes. Quality Stroke Does the patient have a stroke diagnosis?: No VTE Prior VTE?: No VTE Risk Level:: Medical - moderate - high VTE Device Contraindication: N/A - Device Ordered VTE Drug Contraindication: Treatment Not Indicated
[2024-06-21] MEDS: levoFLOXacin/D5W 500 MG/100 ML PIGGYBACK 100 MG IV (15:14)
--- NOTE | 2024-06-21 15:57 | PM.DS ---
DS: Providers Provider Date of Service: 06/21/24 Date of admission: 06/18/24 20:33 Date of discharge: 06/21/24 Primary care physician: Osei Fernández MD Consults: 06/18/24 16:40 Consult to General Surgery Stat Consulting Provider: [facility] Reason for consultation: incarcerated hernia Has provider been notified: Yes 06/19/24 10:37 Consult to Nephrology Routine Consulting Provider: [facility] Reason for consultation: jayson 06/20/24 12:30 Consult to Hematology / Oncology Routine Consulting Provider: [facility] Oncology/Hematology Reason for consultation: ? possible metastatic liver dis/hx of colon cancer Has provider been notified: No 06/20/24 14:34 Consult to Infectious Diseases Routine Consulting Provider: [facility] Reason for consultation: sepsis /uti, liver mass Has provider been notified: No 06/20/24 14:55 Consult to Gastroenterology Routine Consulting Provider: [facility] Reason for consultation: abd pain , elevated lft ,anemia ,liver masses Has provider been notified: No Attending physician on discharge: Jax Castro Discharging clinician: Jax Castro DS: Diagnosis Discharge Diagnosis (1) Liver masses: Status: Acute DS: Summary Hospital Course Hospital Course: HPI:59 years old lady with PMH of Colon CA post Rt colectomy 5 years ago, follows with [facility] [place], Hx abd hernias , morbid obesity, HTN, DMII, asthma among others who presents to hospital with abdominal pain and inability to tolerate PO. The patient reports having RUQ pain since Wednesday, on\off, no aggrevating factors, associated with nausea and bloating but no vomiting, diarrhea, fever or chills. She has urine frequency and has new swelling in lower extremities with decrease PO intake and feeling unwell. She is under the impression that her cancer is cured with no reported abnormalities on her images or follow up with her primary Oncology at [facility] which she has follow up with on Wednesday. In ED found to have leukocytosis, Lactic acidosis and transaminitis with CT scan concerning for liver metastatsis and cholestiasis but no acute cholecystitis. Seen by surgery team in ER. will be admitted for further work up and management. Hospital course: 59/F w/ PMH of Colon CA post Rt colectomy 5 years ago, follows with [facility] oncology, Hx abd hernias , morbid obesity, HTN, DMII, asthma among others who presents to hospital with abdominal pain and inability to tolerate PO and found to have sepsis d/t uti sepsis 2/2 UTI blood culture negative no fever urine culture -mixed floor(contaminant). IV Levaquin for now started 06/18/24 JAYSON--likey ATN from renal hypoperfusion from hypotension haptoglobin levels normal renal evaluation noted-anca addded ,c3,c4 ,myeloperoxidase ,proteinase pending renal us-seems fine . Hyperkalemia d/t renal failure ext swelling vbg ph 7.26,bicarb 17 plan: not much urine output need hd . nephrology following fluid changed to bicard/d5w added calcium gluonate and loklema for hyperkalemia . Abdominal pain with Transaminitis US negative for acute cholecystitis CT scan as reported, likely liver masses elevated LDH( trending up), ALP and GGT; uric acid elevated (trending up) :? in setting of liver mass heptoglobin normal CEA elevated 8.1 . plan: slowly LFT trending up oncology/hematology eval -diffuse liver lesions with cholestatic picture, renal failure and worsening anemia. She reports no symptoms of ongoing infection, blood cultures thus far are negative. (differential-possible new liver malignancy considering she was never diagnosed with metastatic cancer, she was told she was cured and she was to have her last follow up with Dr. Song this we Liver biopsy can be performed to confirm diagnosis.placed orders for liver biopsy d/w surgery and icu -? very large incisional hernia/worsening renal function ,has 1 bm since admission -?early bowel ischemia . acute Lactic acidosis -thought to be likely from Metformin and liver mass, not sepsis. received IVF monitor as needed Hypotension-blood pressure boderline , will check cortisol levels d/w Icu -added fluids changed to bicarb/d5w@100 ml/hr ,albumin Iron def. Anemia h/h is around iron profile -iron sats and levels low ,tibc low start iron supplement denies any melena or aj blood in stool DVT PPX SCDs for possible blood loss anemia due to progressive worsening of jayson and liver dis as well as possible suspected ?hernia related ischmia: patient management discussed with Icu as well as surgery indetail: called placed for tertiary care transfer Time Attestation Total time managing care of this patient today: 40 mintues. Discharge Coordination Time (in mins): 40 min Quality: Safe Use of Opioids Does Pt have an Active Cancer Diagnosis on the Problem List?: No Physical Exam Vital Signs: Vital Signs: Last Vital Signs Temp 97.8 F 06/21/24 15:25 Pulse 90 06/21/24 15:25 Resp 16 06/21/24 15:25 BP 90/52 L 06/21/24 15:25 Pulse Ox 92 06/21/24 15:25 O2 Del Method Nasal Cannula 06/21/24 15:25 O2 Flow Rate 2 06/21/24 15:25 BMI result Body Mass Index 58.7 General: AO X 3, generalised weak. Resp: air entry fair ,no rales or wheezing. CVS: [id number]. GI: large upper abdominal hernia palpable which is soft. Skin: No rash,lower ext edema. Neuro: motor grossly intact Psych: appropriate affect DS: Data Data Completed and Pending Labs on day of discharge: Laboratory Results - last 24 hr 06/18/24 06/20/24 06/20/24 15:26 05:19 16:28 WBC RBC Hgb Hct MCV MCH MCHC RDW Plt Count MPV Absolute Nucleated RBC Nucleated RBC % (auto) VBG pH VBG pCO2 VBG pO2 VBG HCO3 VBG O2 Saturation VBG Base Excess Sodium Potassium Chloride Carbon Dioxide Anion Gap BUN Creatinine Estim Creat Clear Calc Estimated GFR POC Glucose 112 Random Glucose Haptoglobin Uric Acid Calcium Ferritin Total Bilirubin Direct Bilirubin AST ALT Alkaline Phosphatase Lactate Dehydrogenase Total Protein Albumin Carcinoembryonic Ag Random Cortisol Hold Green Top Complement C3 102 Complement C4 31 Blood Type B Positive Antibody Screen NEGATIVE Crossmatch See Detail 06/20/24 06/21/24 06/21/24 21:04 06:25 07:15 WBC 23.0 H RBC 3.65 L Hgb 7.5 L Hct 24.4 L MCV 66.8 L MCH 20.5 L MCHC 30.7 L RDW 22.7 H Plt Count 343 MPV 10.7 Absolute Nucleated RBC 0.110 H Nucleated RBC % (auto) 0.5 H VBG pH VBG pCO2 VBG pO2 VBG HCO3 VBG O2 Saturation VBG Base Excess Sodium 129 L Potassium 5.9 H Chloride 100 Carbon Dioxide 17 L Anion Gap 18 BUN 60 H Creatinine 5.26 H* Estim Creat Clear Calc 17.3 Estimated GFR 8 POC Glucose 100 93 Random Glucose 84 Haptoglobin Uric Acid 13.5 H Calcium 7.9 L Ferritin 92 Total Bilirubin 3.5 H Direct Bilirubin 2.9 H AST 327 H ALT 103 H Alkaline Phosphatase 302 H Lactate Dehydrogenase 755 H Total Protein 6.5 Albumin 2.5 L Carcinoembryonic Ag 8.10 Random Cortisol Hold Green Top See Note Complement C3 Complement C4 Blood Type Antibody Screen Crossmatch 06/21/24 06/21/24 06/21/24 08:26 10:15 11:49 WBC RBC Hgb Hct MCV MCH MCHC RDW Plt Count MPV Absolute Nucleated RBC Nucleated RBC % (auto) VBG pH 7.26 L VBG pCO2 44 VBG pO2 89 VBG HCO3 20 L VBG O2 Saturation 97.0 VBG Base Excess -6.4 Sodium Potassium Chloride Carbon Dioxide Anion Gap BUN Creatinine Estim Creat Clear Calc Estimated GFR POC Glucose 95 Random Glucose Haptoglobin 226 Uric Acid Calcium Ferritin Total Bilirubin Direct Bilirubin AST ALT Alkaline Phosphatase Lactate Dehydrogenase Total Protein Albumin Carcinoembryonic Ag Random Cortisol Hold Green Top Complement C3 Complement C4 Blood Type Antibody Screen Crossmatch 06/21/24 13:59 WBC RBC Hgb Hct MCV MCH MCHC RDW Plt Count MPV Absolute Nucleated RBC Nucleated RBC % (auto) VBG pH VBG pCO2 VBG pO2 VBG HCO3 VBG O2 Saturation VBG Base Excess Sodium Potassium Chloride Carbon Dioxide Anion Gap BUN Creatinine Estim Creat Clear Calc Estimated GFR POC Glucose Random Glucose Haptoglobin Uric Acid Calcium Ferritin Total Bilirubin Direct Bilirubin AST ALT Alkaline Phosphatase Lactate Dehydrogenase Total Protein Albumin Carcinoembryonic Ag Random Cortisol 26.3 Hold Green Top Complement C3 Complement C4 Blood Type Antibody Screen Crossmatch Preliminary micro results at discharge 06/18/24 15:26 Blood Culture - Preliminary Blood - Venous No growth after 48 hours. 06/18/24 15:26 Blood Culture - Preliminary Blood - Venous No growth after 48 hours. Discharge Plan Discharge Anticipated Discharge Date/Time: 06/21/24 15:36 Patient Disposition: Xfer Acute Care Hospital Discharge Diagnosis: sepsis with uti, liver masses ,incisional hernia ? ischemia Referrals: Name,MD Osei [Primary Care Provider] - 1 Week Discharge Medications: New levofloxacin in D5W 250 mg/50 mL Piggyback 250 mg IV Q24H Qty: 1 0RF insulin lispro [Admelog U-100 Insulin lispro] 100 unit/mL Solution See Protocol subcut QIDACHS Qty: 10 0RF Protocol: Insulin Correction Scale Less than or equal to 110 ---- Give (units): 0 111 to 150 Give (units): 0 151 to 200 Give (units): 2 201 to 250 Give (units): 4 251 to 300 Give (units): 6 301 to 350 Give (units): 8 Greater than 350 Give (units): 10 Call MD if Blood Glucose > : 350 Continued lidocaine 5 % adhesive patch,medicated 1 patch topical DAILY PRN (Reason: Pain) Rx Instructions: both feet and knees ferrous sulfate 325 mg (65 mg iron) tablet 325 mg PO DAILY albuterol sulfate [Ventolin HFA] 90 mcg/actuation HFA aerosol inhaler 2 puff INHALATION Q4-6H PRN (Reason: Shortness Of Breath Or Wheezing) diclofenac sodium 1 % gel 2 g topical BID PRN (Reason: Pain) fluticasone propionate 50 mcg/actuation spray,suspension 2 spray intranasal DAILY PRN (Reason: Allergy Symptoms) naloxone [Narcan] 4 mg/actuation spray,non-aerosol 1 spray intranasal DAILY PRN (Reason: Opioid Overdose) Held ibuprofen 800 mg tablet 800 mg PO TID PRN (Reason: for pain) Qty: 90 0RF Hold Instructions: Resume on 07/18/24. pantoprazole 20 mg tablet,delayed release (DR/EC) 20 mg PO DAILY@0630 Hold Instructions: Resume on 07/18/24. levothyroxine 200 mcg tablet 400 mcg PO DAILY@0600 Hold Instructions: Resume on 07/18/24. oxycodone-acetaminophen 7.5-325 mg tablet 1 tab PO QID PRN (Reason: Pain, Moderate) Hold Instructions: Resume on 07/18/24. zolpidem 10 mg tablet 10 mg PO BEDTIME PRN (Reason: Sleep) Hold Instructions: Resume on 07/18/24. paroxetine HCl 40 mg tablet 40 mg PO DAILY Hold Instructions: Resume on 07/18/24. multivitamin with folic acid [Daily-Loiad (with folic acid)] 400 mcg tablet 1 tab PO DAILY Hold Instructions: Resume on 07/18/24. gabapentin 400 mg capsule 400 mg PO TID Hold Instructions: Resume on 07/18/24. hydroxyzine HCl 10 mg tablet 10 - 20 mg PO Q6H PRN (Reason: anxiety) Hold Instructions: Resume on 07/18/24. lactulose 10 gram/15 mL solution 15 ml PO DAILY Hold Instructions: Resume on 07/18/24. Trulicity 0.75 mg/0.5 mL pen injector 0.75 mg subcut SA Hold Instructions: Resume on 07/19/24. Synjardy XR 12.5-1,000 mg tablet, IR - ER, biphasic 24hr 1 tab PO DAILY Hold Instructions: Resume on 07/18/24. ondansetron HCl 4 mg tablet 4 mg PO TID PRN (Reason: nausea) Hold Instructions: Resume on 07/18/24. losartan 25 mg tablet 25 mg PO DAILY Hold Instructions: Resume on 07/19/24. docusate sodium 100 mg capsule 100 mg PO BID Hold Instructions: Resume on 07/18/24. Diet: Advance to usual diet Activity on Discharge: As tolerated Stand Alone Forms: Patient Portal Discharge page Print Language: Faroese Other Ambulatory Orders: Carcinoembryonic Antigen (Routine) Timeframe: 20240620 Facility: [facility] - Location: Laboratory Ordered By: Yael Malloy Care Plan Goals: Patient has history of colon cancer status post right colectomy in 5 years go in [facility], also has history abdominal hernia, morbid obesity, hypertension diabetes and asthma: She was admitted to the hospital because sepsis secondary to UTI, abdominal pain and transaminitis: Patient was started on IV antibiotics, liver function monitored, blood and urine cultures sent, further hospital course complicated with JAYSON for which patient received IV fluids as well as workup for JAYSON ordered-renal ultrasound seems fine ,c3,c4 ,myeloperoxidase ,proteinase pending . with the above management patient condition did not improve much, not producing much urine, has multiple electrolytic abnormalities- With IV fluids also developing lower extremity swelling: Discussed with nephrology patient replaced on hemodialysis(as per Nephrology likely JAYSON likely due to ATN vs direct infiltration of B cells into kidney versus tumor lysis( unlikely). In addition LFTs also somewhat worsening progressively-CT scan abdomen shows liver masses,cea elevated 8.1 as well as LDH, uric acid: Seen by oncology recommended liver biopsy(patient was treated for colon cancer 5 year ago in [facility] with right colectomy and chemotherapy in 2019-as per patient family and also her oncologist-patient was followed afterwards and no new recurrence of colon cancer). In addition patient also has big incisional hernia-and on and off abdominal discomfort as well as only 1 BM since admission, unable to take p.o.: Further discussion with surgery and technician semiconductor development:concerned for possible early bowel ischemia. Surgery [facility] including multiple issues as above. Health Concerns: As above. Plan of Treatment: As above. Assessment: As above.
[2024-06-21 16:15] LABS: Glucose, Whole Blood 90 mg/dL (60-115)
[2024-06-21] MEDS: levoFLOXacin/D5W 250 MG/50 ML PIGGYBACK 50 MG IV (16:16)
[2024-06-21] MEDS: Calcium Gluconate/NaCl,Iso-Osm 2 GM/100 ML PLAST..BAG IV (16:17)
--- NOTE | 2024-06-21 16:39 | PC.NURSE ---
Pt has been drowsy but arousable throughout the day. Will open her eyes but not conversational. Family at bedside and spoke with MD regarding pt status. Has HD cath to right neck and is to have dialysis this evening. Blood transfusion ordered, consent obtained however per Dr Castro to hold transfusion at this time. Pt c/o abdominal(hernia) pain- medicated once this shift with po oxycodone. [place] with only minimal in bag. NPO at this time. Echo done at bedside this afternoon. BP running 90-92 systolic throughout the day- Dr Castro aware.
--- NOTE | 2024-06-21 16:48 | P.CNID_ITS ---
History of Present Illness Data of Consult Service Date: 06/21/24 Requesting physician: aJx Castro Primary Care Provider: Osei Fernández MD HPI Reason for consult: leukocytosis.possible sepsis She presents on 06/18 with RUQ pain for six days as well as urinary frequency. He has colon cancer with right colectomy five years ago and sigmoid 07/2023 reported unremarkable. She also had CT abdomen and pelvis 2022 reported unremarkable. She received chemotherapy in 2019 by report. She has urine culture more than 100,000 mixed clari. She has been started on Levaquin. CT scan shows concern over liver masses,hepatic disease. Review of Systems 2 Review of Systems: Yes Unobtainable due to mental condition PMFSH Past Medical History Medical History HTN (hypertension) Carpal tunnel syndrome of left wrist Asthma Morbid obesity Diabetes Colon cancer Thyroid cancer Family History Family history: reviewed and not pertinent Surgical History Surgical History H/O ventral hernia repair History of removal of laparoscopic gastric banding device Hx of laparoscopic gastric banding H/O colectomy H/O thyroidectomy Social History Social History Household Members: Children Housing: Apartment Do you presently have visiting nurse or other home services: Yes (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) Patient Tobacco Use Status: Never used Tobacco service: No Current occupational status: disabled Meds Allergies Allergy/AdvReac Type Severity Reaction Status Date / Time cortisone [CORTISONE] Allergy Mild RASH Verified 06/18/24 14:02 Penicillins [PENICILLINS] Allergy Mild RASH Verified 06/18/24 14:02 bee pollen [BEE STINGS] Allergy Unknown ANAPHYLAXIS Verified 06/18/24 14:02 penicillin V Allergy Unknown Itching Verified 06/18/24 14:02 adhesive Allergy Rash Verified 06/18/24 14:02 Cortisone Allergy Unknown Itching Uncoded 03/29/24 13:11 Active Medications: Current Medications Acetaminophen (Acetaminophen 325 Mg Tablet) 650 mg PO Q6H PRN PRN Reason: Pain, Mild 1-3,fever,headache Last Admin: 06/19/24 11:53 Dose: 650 mg Albuterol Sulfate (Albuterol Sulfate 90 Mcg 8 Gm Inhaler) 2 puff INHALE Q4H PRN PRN Reason: Shortness Of Breath Or Wheezing Bisacodyl (Bisacodyl 10 Mg Supp.Rect) 10 mg IA BEDTIME [facility] Last Admin: 06/20/24 19:32 Dose: 10 mg Calcium Carbonate (Calcium Carbonate 750 Mg Tab.Chew) 750 mg PO Q4H PRN PRN Reason: Heartburn Docusate Sodium (Docusate Sodium 100 Mg Capsule) 100 mg PO BID [facility] Last Admin: 06/21/24 08:01 Dose: 100 mg Ferrous Sulfate (Ferrous Sulfate 324 Mg Tablet.Dr) 324 mg PO DAILY [facility] Last Admin: 06/21/24 08:02 Dose: 324 mg Fluticasone Propionate (Fluticasone Propionate Nasal 16 Gm [place]) 2 spray NOSTRIL-B DAILY PRN PRN Reason: Allergy Symptoms Heparin Sodium (Porcine) (Heparin Sodium,Porcine 5,000 Unit/Ml Vial) 5,000 unit INTRACATH ONCE ONE Stop: 06/22/24 06:01 Heparin Sodium (Porcine) (Heparin Sodium,Porcine 5,000 Unit/Ml Vial) 5,000 unit INTRACATH ONCE ONE Stop: 06/23/24 06:01 Levofloxacin (Levaquin) 500 mg in 100 mls @ 100 mls/hr IV Q24H [facility] Last Infusion: 06/21/24 16:14 Dose: Infused Levofloxacin (Levaquin) 250 mg in 50 mls @ 50 mls/hr IV Q24H [facility] Last Admin: 06/21/24 16:16 Dose: 50 mls/hr Albumin Human (Kedbumin 25 %) 100 mls @ 100 mls/hr IV Q6H [facility] Stop: 06/22/24 02:14 Last Infusion: 06/21/24 14:12 Dose: Infused Calcium Gluconate (Calcium Gluconate) 2 gm in 100 mls @ 50 mls/hr IV ONCE ONE Stop: 06/21/24 17:23 Last Admin: 06/21/24 16:17 Dose: 50 mls/hr Sodium Bicarbonate 150 meq/ (Dextrose) 1,000 mls @ 100 mls/hr IV .Q10H [facility] Insulin Human Lispro (Insulin Lispro 100 Unit/Ml 3 Ml Vial) 0 unit SUBCUT QIDACHS [facility]; Protocol Last Admin: 06/21/24 16:32 Dose: Not Given Lactulose (Lactulose 20 Gm/30 Ml Solution) 10 gm PO DAILY [facility] Last Admin: 06/21/24 08:02 Dose: 10 gm Levothyroxine Sodium (Levothyroxine Sodium 200 Mcg Tablet) 400 mcg PO DAILY@0600 [facility] Last Admin: 06/21/24 05:08 Dose: 400 mcg Lidocaine (Lidocaine 4 % Patch Adh..Patch) 1 patch TRANSDERMA DAILY PRN PRN Reason: Pain Magnesium Hydroxide (Milk Of Magnesia 30 Ml Oral.Susp) 30 ml PO DAILY PRN PRN Reason: Constipation Melatonin (Melatonin 3 Mg Tablet) 6 mg PO BEDTIME PRN PRN Reason: Insomnia Last Admin: 06/20/24 19:32 Dose: 6 mg Multivitamins/Vitamin C (Multivitamin Tablet) 1 tab PO DAILY [facility] Last Admin: 06/21/24 08:02 Dose: 1 tab Naloxone HCl (Naloxone Hcl Nasal 4 Mg [place]) 4 mg NOSTRILALT DAILY PRN PRN Reason: opioid overdose Omeprazole (Omeprazole 20 Mg Capsule.Dr) 20 mg PO DAILY@0630 [facility] Last Admin: 06/21/24 05:08 Dose: 20 mg Ondansetron HCl (Ondansetron Hcl 4 Mg/2 Ml Vial) 4 mg IVPUSH Q6H PRN PRN Reason: Nausea and Vomiting Last Admin: 06/21/24 11:51 Dose: 4 mg Sodium Chloride (0.9 % Sodium Chloride Flush 3 Ml Syringe) 3 ml IVFLUSH QSHIFT [facility] Last Admin: 06/21/24 15:16 Dose: 3 ml Zolpidem Tartrate (Zolpidem Tartrate 5 Mg Tablet) 10 mg PO BEDTIME PRN PRN Reason: Sleep Home Medications ?Medication ?Instructions ?Recorded ?Confirmed ?Last Taken ?Type levothyroxine 200 mcg tablet 400 mcg PO DAILY@0600 02/26/21 06/19/24 06/18/24 History lidocaine 5 % topical patch 1 patch topical DAILY PRN Pain 02/26/21 06/19/24 Unknown History multivitamin with folic acid 400 1 tab PO DAILY 02/26/21 06/19/24 06/18/24 History mcg tablet (Daily-Loida (with folic acid)) oxycodone-acetaminophen 7.5 mg-325 1 tab PO QID PRN Pain, Moderate 02/26/21 06/19/24 Unknown History mg tablet pantoprazole 20 mg tablet,delayed 20 mg PO DAILY@0630 02/26/21 06/19/24 06/18/24 History release paroxetine HCl 40 mg tablet 40 mg PO DAILY 02/26/21 06/19/24 06/18/24 History zolpidem 10 mg tablet 10 mg PO BEDTIME PRN Sleep 02/26/21 06/19/24 Unknown History diclofenac sodium 1 % topical gel 2 g topical BID PRN Pain 02/10/22 06/19/24 Unknown History docusate sodium 100 mg capsule 100 mg PO BID 02/10/22 06/19/24 06/18/24 History fluticasone propionate 50 2 spray intranasal DAILY PRN 02/10/22 06/19/24 Unknown History mcg/actuation nasal Allergy Symptoms spray,suspension losartan 25 mg tablet 25 mg PO DAILY 02/10/22 06/19/24 06/18/24 History naloxone 4 mg/actuation nasal 1 spray intranasal DAILY PRN 02/10/22 06/19/24 06/18/24 History spray (Narcan) Opioid Overdose ondansetron HCl 4 mg tablet 4 mg PO TID PRN nausea 02/10/22 06/19/24 Unknown History albuterol sulfate 90 mcg/actuation 2 puff inhalation Q4-6H PRN 06/19/24 06/19/24 Unknown History aerosol inhaler (Ventolin HFA) Shortness Of Breath Or Wheezing dulaglutide 0.75 mg/0.5 mL 0.75 mg subcut SA 06/19/24 06/19/24 06/10/24 History subcutaneous pen injector (Trulicity) empagliflozin 12.5 mg-metformin ER 1 tab PO DAILY 06/19/24 06/19/24 06/18/24 History 1,000 mg tablet,extended rel 24 hr (Synjardy XR) ferrous sulfate 325 mg (65 mg 325 mg PO DAILY 06/19/24 06/19/24 06/18/24 History iron) tablet gabapentin 400 mg capsule 400 mg PO TID 06/19/24 06/19/24 06/18/24 History hydroxyzine HCl 10 mg tablet 10 - 20 mg PO Q6H PRN anxiety 06/19/24 06/19/24 Unknown History lactulose 10 gram/15 mL oral 15 ml PO DAILY 02/08/0806/19/24 06/18/24 History solution Physical Exam 2 Vital Signs: Vital Signs: Last Vital Signs Temp 97.8 F 06/21/24 15:25 Pulse 90 06/21/24 15:25 Resp 16 06/21/24 15:25 BP 90/52 L 06/21/24 15:25 Pulse Ox 92 06/21/24 15:25 O2 Del Method Nasal Cannula 06/21/24 15:25 O2 Flow Rate 2 06/21/24 15:25 BMI result Body Mass Index 58.7 Const: General: cooperative HEENT: Head: Yes normal to inspection Face and sinus: Yes normal facial exam Mouth: Normal oral and palatal mucosa present Teeth and gingiva: d entition normal Eyes: General: appearance normal, both eyes and all related structures P upils: Equal, round and reactive pupils present Resp: Effort & Inspection: normal respiratory effort Cardio: Rate: regular rate Rhythm: regular rhythm GI: Other: large abdominal hernia, no pain Palpation (GI): Soft to palpation and nontender : General: Yes no CVA tenderness Back/Spine/Pelvis: Back: no CVA tenderness Skin: General skin exam: no rashes or lesions noted Neuro: General: moves all extremities Cranial nerves: Yes Equal, round and reactive pupils present Extrem: General: Yes normal to inspection Psych: Other: completely encephalopathic Appearance: grossly normal Results Labs 06/21/24 06:25 06/21/24 06:25 Labs: Short CBC 06/21/24 Range/Units 06:25 WBC 23.0 H (4.8-10.8) X10*3/uL Hgb 7.5 L (12.0-16.0) g/dl Hct 24.4 L (37.0-47.0) % Plt Count 343 (160-400) X10*3/uL BMP 06/21/24 06:25 Sodium 129 L Potassium 5.9 H Chloride 100 Carbon Dioxide 17 L BUN 60 H Creatinine 5.26 H* Calcium 7.9 L Liver Function 06/21/24 Range/Units 06:25 Total Bilirubin 3.5 H (0.0-1.0) mg/dL Direct Bilirubin 2.9 H (0.0-0.5) mg/dL AST 327 H (5-31) U/L ALT 103 H (0-31) U/L Alkaline Phosphatase 302 H (39-117) U/L Albumin 2.5 L (3.5-5.0) g/dL Microbiology Microbiology Results: Microbiology 06/18/24 15:26 Blood - Venous Blood Culture - Preliminary No growth after 48 hours. 06/18/24 15:26 Blood - Venous Blood Culture - Preliminary No growth after 48 hours. 06/18/24 20:10 Urine clean catch - Clean Catch Midstream Urine Culture - Final Assessment and Plan (1) Liver masses: Status: Acute (2) JAYSON (acute kidney injury): Status: Acute (3) Sepsis: Status: Acute Plan Possible biliary obstruction with liver masses high concern over metastatic disease. She has possible gram negative and anerobes if necrotic abdominal mass. Encephalopathy concerning for sepsis and metastatic disease. Contact has been made with Oncologist,Dr Song per Dr Castro. Would give IV Levaquin and Flagyl for now. Biopsy liver tomorrow check cytology,gram stain and culture,AFB and fungus. Prognosis guarded.
--- NOTE | 2024-06-21 17:00 | CA_ITS ---
Transthoracic Echocardiogram Patient (Last, First, Middle): Luisa Nuñez, Gender: Female Date of : 1965 Age: 59 Procedure Date: 06/21/2024 Procedure Type: Transthoracic Echocardiogram Location: S3E Height: 165.1 cm Weight: 159.67 kg BSA: 2.52 m2 Heart Rate: bpm BP: 90 / 52 mmHg Sales Advisory Manager: Referring MD: Jax Castro MD Symptoms: boderline bp/liver dis /?pericardial effusion Study Quality: Adequate ECG Rhythm: Sinus Conclusions: - Normal left ventricular cavity size. There is mildly increased left ventricular wall thickness. The left ventricular systolic function is hyperdynamic. The visually estimated ejection fraction is >70%. - The basal inferior segment is akinetic. - Normal right ventricular cavity size and systolic function. - Mildly elevated gradients across aortic valve due to high flow state. - Mild pulmonary hypertension is present. - There is mild dilatation of the ascending aorta measuring 3.70 cm. Findings Left Ventricle Normal left ventricular cavity size. There is mildly increased left ventricular wall thickness. The left ventricular systolic function is hyperdynamic. The visually estimated ejection fraction is >70%. There is evidence of regional wall motion abnormalities. Diastolic function is normal for age. Wall Motion Rest Echo Findings The basal inferior segment is akinetic. Right Ventricle Normal right ventricular cavity size and systolic function. Atria The left atrium is moderately dilated. The right atrium is normal in size. Aortic Valve Normal aortic valve structure and function. The peak aortic velocity is 2.69 m/s. The mean gradient is 15 mmHg. There is no aortic valve regurgitation. Mildly elevated gradients across aortic valve due to high flow state. Mitral Valve The mitral valve appears normal. There is trace mitral valve regurgitation. There is no mitral valve stenosis. Pulmonic Valve The pulmonic valve is likely normal. There is trace pulmonic valve regurgitation. Tricuspid Valve Likely normal tricuspid valve structure and function. The right ventricular systolic pressure is 41 mmHg. Significantly elevated right atrial pressure. Mild pulmonary hypertension is present. Great Vessels There is mild dilatation of the ascending aorta measuring 3.70 cm. The visualized portions of the pulmonary artery and branches are normal. Venous The inferior vena cava is dilated and collapses less than 50% with inspiration. Pericardium/Pleural There is no evidence of pericardial effusion. Prior Study Comparison No prior study available for comparison. Measurements 2D Linear Measurements IVSd: 1.09 0.6-0.9/0.6-1.0 cm LVIDd: 4.63 3.9-5.3/4.2-5.9 cm LVIDd Index: 1.84 2.4-3.2/2.2-3.1 cm/m2 LVIDs: 2.96 2.0-3.6 cm LVPWd: 1.11 0.7-1.1 cm Ao Root: 3.40 2.1-3.5 cm LA Diam: 4.10 2.7-3.8/3.0-4.0 cm LAIDs Index: 1.63 1.5-2.3 cm/m2 LV Mass: 228.13 67-162/88-224 g LV Mass Index: 90.53 43-95/49-115 g/m2 LVOT Diam: 2.40 3.0+(-)1.3 cm Mitral Valve MV Pk E: 1.05 MV PK A: 0.95 MV Decel Time: 161.00 E/A: 1.10 E'Lateral: 11.30 E'Medial: 11.70 E/E' Med: 9.00 E/E' Lat: 9.30 PHT: 47.00 MVA PHT: 4.68 Decel [place]on: 6.54 Aortic Valve AoV Pk Francisco: 2.69 AoV Mn Francisco: 1.78 AoV VTI: 0.53 AoV Pk Grad: 29.00 Aov Mn Grad: 15.00 KRUPA Cont.VTI: 2.45 LVOT LVOT Pk Francisco: 1.27 LVOT Mn Francisco: 1.01 LVOT VTI: 0.29 LVOT Pk Grad: 6.00 LVOT Mn Grad: 5.00 LVOT Diam: 2.40 LVOT Area: 4.52 Diastolic Function MV Pk E: 1.05 MV Pk A: 0.95 E/A: 1.10 E'Medial: 11.70 E/E' Med: 9.00 E' Laterial: 11.30 E/E' Lat: 9.30 Right Ventricle TAPSE (mm): 27.00 TVS' Francisco: 15.00 Tricuspid Valve TR Pk Francisco: 2.86 TR Pk Grad: 33.00 RA Press: 8.00 RVSP: 41.00 Great Vessels Aorta Ao Root-2D: 3.40 2.0-3.7 cm Ao Asc: 3.70 2.1-3.4 cm Pulmonary Valve PV Pk Francisco: 1.35 Peak PV Grad: 7.00 Updated in Other Vendor System with Status of Final Alex Wilson MD electronically signed on 06/21/2024 7:28:39 PM with status of Final
--- NOTE | 2024-06-21 17:39 | PC.NURSE ---
Report given to Dionne. Pt transported to dialysis via bed.
--- NOTE | 2024-06-21 17:43 | PC.NURSE ---
Daughter Mary notified of transfer to [facility] after diaysis
[2024-06-21] MEDS: Sodium Bicarbonate 8.4% 150 MEQ in Dextrose 5 % 850 ML 100 MEQ IV (18:05)
[2024-06-21] MEDS: Lactated Ringers 500 ML 999 ML IV (20:00)
[2024-06-21] MEDS: metroNIDAZOLE/NS 500 MG/100 ML PIGGYBACK 100 MG IV (20:20)
[2024-06-21 20:25] LABS: VBG Base Excess -3.6 mmol/L; VBG HCO3 22 mmol/L (22-26); VBG pCO2 41 mmHg; VBG pH 7.32 (7.32-7.43); VBG pO2 72 mmHg
[2024-06-21 20:34] LABS: Hematocrit 21.6 % (37.0-47.0); Mean Corpuscular Hemoglobin 20.7 pg (27.0-33.0); Mean Corpuscular Volume 66.7 fL (80.0-98.0); Mean Platelet Volume 10.2 fL (9.4-12.3); NRBC Pct Auto 0.4 /100WBC (0.0-0.2); Platelet Count 303 X10*3/uL (160-400); Red Blood Count 3.24 X10*6/uL (4.20-5.50); Red Cell Distribution Width 22.9 % (11.0-16.0); White Blood Count 22.4 X10*3/uL (4.8-10.8)
--- NOTE | 2024-06-21 20:34 | PM.CCN ---
Critical Care Event Note Summary Date of Service: 06/21/24 Code activated: No Narrative: Patient transferred to ICU for level of care secondary to hypotension, lethargy. She is a 59 year old female with PMH of Colon CA post Rt colectomy 5 years ago, Hx abd hernias , morbid obesity, HTN, DMII, asthma. Admitted with? abdominal pain and sepsis d/t UTI. Transaminitis d/t Liver mass. JAYSON. Abdominal CT showed? a large abdominal wall hernia, a severe degree of hepatic metastatic disease, possible cholecystitis. Renal workup in progress. Patient is oliguric. Metabolic acidosis.? Her first dialysis was today. She became quite lethargic and hypotensive. SBP 80s, HR 80s.? Arousable to sternal rub only.? O2 sat 94% on 2 L.? Breathing easy, no rales no wheezing. Patient transferred to the ICU for further management and treatment. Patient's care was discussed in detail with Dr. Briggs.? He is aware of all the above as well as the plan of care for this patient. This case had a high probability of a clinically significant, sudden, or life threatening deterioration of this patient's condition which required my full and direct attention, intervention and personal management. Critical Care Time (minutes): 60
--- NOTE | 2024-06-21 20:35 | PC.NURSE ---
Report received on patient at 190 from GEETHA Cunningham. Patient in dialysis. At 1917 patient accepted to ICU. Report given to DUPLICATING MACHINE OPERATORGEETHA Chambers. Patient brought from dialysis to ICU with this RN and charge nurse.
[2024-06-21 20:38] LABS: Anion Gap 15 (12-20); Blood Urea Nitrogen 49 mg/dL (9-16); Calcium 7.4 mg/dL (8.4-10.2); Carbon Dioxide 21 mmol/L (22-29); Chloride 101 mmol/L (96-108); Estimated Glomerular Filt Rate 9; Glucose Random 86 mg/dL (60-115); Hemoglobin 6.7 g/dl (12.0-16.0); Magnesium 2.1 mg/dL (1.6-2.6); Phosphorus 5.2 mg/dL (2.7-4.5); Potassium 4.9 mmol/L (3.3-5.1); Sodium 132 mmol/L (135-145)
[2024-06-21 21:39] LABS: Lymphocytes Percent Manual 9 % (20-40); Metamyelocytes Absolute 0.4 X10*3/uL; Metamyelocytes Percent 2 %; Monocytes Absolute Manual 1.3 X10*3/uL (0.1-1.2); Monocytes Percent Manual 6 % (2-11); Neutrophils Percent Manual 83 % (45-73); Nucleated Red Blood Cells 1 /100WBC (0-0)
[2024-06-21 21:40] LABS: Target Cells 1+ (5-14) /OIF
[2024-06-21 21:44] LABS: Schistocytes 1+ (0-2) /OIF
[2024-06-21 21:47] LABS: Band Neutrophils Percent 0 % (3-5); Neutrophils Absolute Manual 18.6 X10*3/uL (2.0-8.3); Platelet Estimate NORMAL (NORMAL); Platelet Morphology Comment NORMAL; RBC Morphology NOTED
[2024-06-21 22:15] LABS: Venous Blood Gas Refer to POC result
--- NOTE | 2024-06-21 22:36 | PC.NURSE ---
[facility] Upon initial assessment, patient lethargic and obtunded. Arousable to sternal rub only, with a grimace, no eye opening. See shift assessment for GCS, KERFER MACHINE OPERATOR Jaycob aware of mental status. SR on tele, HR 80s. SBP 90s MAP goal > 65. 500mL bolus of LR given per EMILY Devries, see MAR. Sodium bicarb gtt infusing at 100mL/hr upon arrival, see MAR. Patient RR deep and even, 2L NC. Lung sounds clear, diminished bases. Abdomen large and partially distended. Palomino catheter present on arrival, scant output clear and dark yellow. Patient skin overall intact, diffuse bruising to BUE, non pitting edema to BLE and bilateral hands. Patient's significant other and daughter updated on plan of care by this RN at bedside. Bariatric bed locked in lowest possible position, bed alarm on, patient repositioned Q2HR with pillows as tolerated.
[2024-06-22] VITALS (29 sets, daily range): BP systolic 82–144; BP diastolic 38–68; PULSE 75–97; RESP 20–31; TEMP 36.6–38.2; O2SAT 2–95
[2024-06-22 00:35] LABS: VBG Base Excess -3.3 mmol/L; VBG HCO3 22 mmol/L (22-26); VBG pCO2 44 mmHg; VBG pH 7.31 (7.32-7.43); VBG pO2 70 mmHg
[2024-06-22 00:38] LABS: Venous Blood Gas Refer to POC result
[2024-06-22 00:42] LABS: Hematocrit 23.4 % (37.0-47.0); Hemoglobin 7.6 g/dl (12.0-16.0); Mean Corpuscular HGB Conc 32.5 g/dl (31.0-35.0); Mean Corpuscular Hemoglobin 21.9 pg (27.0-33.0); Mean Corpuscular Volume 67.4 fL (80.0-98.0); Mean Platelet Volume 10.4 fL (9.4-12.3); NRBC Pct Auto 0.4 /100WBC (0.0-0.2); Platelet Count 306 X10*3/uL (160-400); Red Blood Count 3.47 X10*6/uL (4.20-5.50); Red Cell Distribution Width 24.1 % (11.0-16.0)
[2024-06-22 01:01] LABS: Anion Gap 20 (12-20); Blood Urea Nitrogen 53 mg/dL (9-16); Calcium 7.9 mg/dL (8.4-10.2); Carbon Dioxide 18 mmol/L (22-29); Chloride 99 mmol/L (96-108); Creatinine Clr Calc Pharmacy 18.3; Estimated Glomerular Filt Rate 9; Glucose Random 90 mg/dL (60-115); Potassium 5.1 mmol/L (3.3-5.1); Sodium 132 mmol/L (135-145)
[2024-06-22] MEDS: Albumin Human 25 % 100 ML IV (01:45)
[2024-06-22] MEDS: metroNIDAZOLE/NS 500 MG/100 ML PIGGYBACK 100 MG IV ×3 (02:45→17:43)
[2024-06-22] MEDS: Sodium Bicarbonate 8.4% 150 MEQ in Dextrose 5 % 850 ML 100 MEQ IV (05:02)
[2024-06-22 05:49] LABS: VBG Base Excess -2.2 mmol/L; VBG HCO3 20 mmol/L (22-26); VBG pCO2 29 mmHg; VBG pH 7.45 (7.32-7.43); VBG pO2 67 mmHg
[2024-06-22 06:29] LABS: Venous Blood Gas Refer to POC result
[2024-06-22 06:55] LABS: Hemoglobin 7.4 g/dl (12.0-16.0); Mean Corpuscular HGB Conc 32.2 g/dl (31.0-35.0); Mean Corpuscular Hemoglobin 21.7 pg (27.0-33.0); Mean Corpuscular Volume 67.4 fL (80.0-98.0); Mean Platelet Volume 10.7 fL (9.4-12.3); NRBC Pct Auto 0.4 /100WBC (0.0-0.2); Platelet Count 293 X10*3/uL (160-400); Red Blood Count 3.41 X10*6/uL (4.20-5.50); Red Cell Distribution Width 23.9 % (11.0-16.0)
[2024-06-22 07:11] LABS: Alanine Aminotransferase 89 U/L (0-31); Albumin Level 3.2 g/dL (3.5-5.0); Alkaline Phosphatase 256 U/L (39-117); Anion Gap 19 (12-20); Aspartate Amino Transferase 269 U/L (5-31); Bilirubin Total 4.1 mg/dL (0.0-1.0); Blood Urea Nitrogen 56 mg/dL (9-16); Calcium 8.2 mg/dL (8.4-10.2); Carbon Dioxide 20 mmol/L (22-29); Chloride 98 mmol/L (96-108); Creatinine Clr Calc Pharmacy 16.6; Estimated Glomerular Filt Rate 8; Glucose Random 96 mg/dL (60-115); Magnesium 2.1 mg/dL (1.6-2.6); Phosphorus 5.7 mg/dL (2.7-4.5); Potassium 4.9 mmol/L (3.3-5.1); Sodium 132 mmol/L (135-145); Total Protein 6.7 g/dL (6.5-8.0)
[2024-06-22 07:20] LABS: Cortisol Random 22.8 ug/dL
[2024-06-22 07:33] LABS: Glucose, Whole Blood 105 mg/dL (60-115)
[2024-06-22 07:50] LABS: Hepatitis B Core Antibody Nonreactive (Nonreactive); ~Hepatitis B Surface Antibody NONREACTIVE (Nonreactive)
[2024-06-22] MEDS: Norepinephrine Bitartrate/D5W 8 MG/250 ML PLAST..BAG 15.01 MG IVCONT (08:27)
[2024-06-22 08:35] LABS: HBc Num1 0.17 S/CO (0.00-0.79); HBsAGNum1 0.32 S/CO (0.00-0.99); Hepatitis B Surface Antigen Negative (Negative)
[2024-06-22] MEDS: 0.9 % Sodium Chloride Flush 3 ML SYRINGE IVFLUSH ×3 (09:47→17:41)
[2024-06-22] MEDS: levoFLOXacin/D5W 500 MG/100 ML PIGGYBACK 100 MG IV (09:59)
[2024-06-22 10:00] LABS: Lactic Acid 2.2 mmol/L (0.5-2.0)
[2024-06-22 11:05] LABS: Acetaminophen LAB < 3 mcg/mL (<30); Salicylate < 5.0 mg/dL (15-30)
[2024-06-22 11:33] LABS: Reflex Lactate? Lactic Acid Added
[2024-06-22 11:37] LABS: Glucose, Whole Blood 103 mg/dL (60-115)
[2024-06-22 12:18] LABS: ~Lactic Acid-LAB USE ONLY 2.5 mmol/L (0.5-2.0)
--- NOTE | 2024-06-22 13:10 | PM.PNNEP ---
Subjective Subjective Date of Service: 06/22/24 Interval history: Seen this morning in ICU. On pressors. Going to have second HD treatment. Responding only to sternal rub. All data reviewed again. D/W ICU Attending Physical Exam Vital Signs: Vital Signs: Last Vital Signs Temp 97.8 F 06/22/24 12:00 Pulse 94 06/22/24 13:00 Resp 25 H 06/22/24 13:00 BP 107/48 L 06/22/24 13:00 Pulse Ox 90 L 06/22/24 13:00 O2 Del Method Nasal Cannula 06/22/24 13:00 O2 Flow Rate 2 06/22/24 13:00 BMI result Body Mass Index 58.7 Const: General: no acute distress Neck: Neck: Yes supple Resp: Auscultation: diminished lung sounds Cardio: Rate: regular rate GI: Palpation (GI): Soft to palpation Neuro: Other: Responding only to sternal rub Objective Data Labs 06/22/24 05:27 06/22/24 05:27 Labs: Laboratory Results - last 24 hr 06/18/24 06/20/24 06/21/24 15:26 05:19 06:25 WBC RBC Hgb Hct MCV MCH MCHC RDW Plt Count MPV Immature Gran % (Auto) Neut % (Auto) Lymph % (Auto) [place] % (Auto) Eos % (Auto) Baso % (Auto) Lymph # (Auto) [place] # (Auto) Eos # (Auto) Baso # (Auto) Abs Immat Gran (auto) Absolute Neuts (auto) Absolute Nucleated RBC Nucleated RBC % (auto) Neutrophils % (Manual) Band Neutrophils % Lymphocytes % (Manual) Monocytes % (Manual) Metamyelocytes % Abs Neuts (Manual) Lymphocytes # (Manual) Monocytes # (Manual) Metamyelocytes # Nucleated RBCs Platelet Estimate Plt Morphology Comment RBC Morphology Target Cells Schistocytes VBG pH VBG pCO2 VBG pO2 VBG HCO3 VBG O2 Saturation VBG Base Excess Sodium Potassium Chloride Carbon Dioxide Anion Gap BUN Creatinine Estim Creat Clear Calc Estimated GFR POC Glucose Random Glucose Lactic Acid Lactic Acid F/U @ 2Hr Uric Acid 13.5 H Calcium Phosphorus Magnesium Total Bilirubin AST ALT Alkaline Phosphatase Total Protein Albumin Random Cortisol Salicylates Acetaminophen Complement C3 102 Complement C4 31 Hep Bs Antigen Hep Bs Antibody Hep B Core Total Ab Blood Type B Positive Antibody Screen NEGATIVE Crossmatch See Detail 06/21/24 06/21/24 06/21/24 10:15 13:59 16:10 WBC RBC Hgb Hct MCV MCH MCHC RDW Plt Count MPV Immature Gran % (Auto) Neut % (Auto) Lymph % (Auto) [place] % (Auto) Eos % (Auto) Baso % (Auto) Lymph # (Auto) [place] # (Auto) Eos # (Auto) Baso # (Auto) Abs Immat Gran (auto) Absolute Neuts (auto) Absolute Nucleated RBC Nucleated RBC % (auto) Neutrophils % (Manual) Band Neutrophils % Lymphocytes % (Manual) Monocytes % (Manual) Metamyelocytes % Abs Neuts (Manual) Lymphocytes # (Manual) Monocytes # (Manual) Metamyelocytes # Nucleated RBCs Platelet Estimate Plt Morphology Comment RBC Morphology Target Cells Schistocytes VBG pH VBG pCO2 VBG pO2 VBG HCO3 VBG O2 Saturation VBG Base Excess Sodium Potassium Chloride Carbon Dioxide Anion Gap BUN Creatinine Estim Creat Clear Calc Estimated GFR POC Glucose 90 Random Glucose Lactic Acid Lactic Acid F/U @ 2Hr Uric Acid Calcium Phosphorus Magnesium Total Bilirubin AST ALT Alkaline Phosphatase Total Protein Albumin Random Cortisol 26.3 Salicylates Acetaminophen Complement C3 Complement C4 Hep Bs Antigen Negative Hep Bs Antibody NONREACTIVE Hep B Core Total Ab Nonreactive Blood Type Antibody Screen Crossmatch 06/21/24 06/21/24 06/22/24 20:15 20:20 00:30 WBC 22.4 H 22.0 H RBC 3.24 L 3.47 L Hgb 6.7 L* 7.6 L Hct 21.6 L 23.4 L MCV 66.7 L 67.4 L MCH 20.7 L 21.9 L MCHC 31.0 32.5 RDW 22.9 H 24.1 H Plt Count 303 306 MPV 10.2 10.4 Immature Gran % (Auto) Cancelled Neut % (Auto) Cancelled Lymph % (Auto) Cancelled [place] % (Auto) Cancelled Eos % (Auto) Cancelled Baso % (Auto) Cancelled Lymph # (Auto) Cancelled [place] # (Auto) Cancelled Eos # (Auto) Cancelled Baso # (Auto) Cancelled Abs Immat Gran (auto) Cancelled Absolute Neuts (auto) Cancelled Absolute Nucleated RBC 0.100 H 0.090 H Nucleated RBC % (auto) 0.4 H 0.4 H Neutrophils % (Manual) 83 H Band Neutrophils % 0 L Lymphocytes % (Manual) 9 L Monocytes % (Manual) 6 Metamyelocytes % 2 Abs Neuts (Manual) 18.6 H Lymphocytes # (Manual) 2.0 Monocytes # (Manual) 1.3 H Metamyelocytes # 0.4 Nucleated RBCs 1 H Platelet Estimate NORMAL Plt Morphology Comment NORMAL RBC Morphology NOTED Target Cells 1+ (5-14) Schistocytes 1+ (0-2) VBG pH 7.32 7.31 L VBG pCO2 41 44 VBG pO2 72 70 VBG HCO3 22 22 VBG O2 Saturation Not Reportable 93.0 VBG Base Excess -3.6 -3.3 Sodium 132 L 132 L Potassium 4.9 5.1 Chloride 101 99 Carbon Dioxide 21 L 18 L Anion Gap 15 20 BUN 49 H 53 H Creatinine 4.80 H* 5.01 H* Estim Creat Clear Calc 19.0 18.3 Estimated GFR 9 9 POC Glucose Random Glucose 86 90 Lactic Acid Lactic Acid F/U @ 2Hr Uric Acid Calcium 7.4 L D 7.9 L D Phosphorus 5.2 H Magnesium 2.1 Total Bilirubin AST ALT Alkaline Phosphatase Total Protein Albumin Random Cortisol Salicylates Acetaminophen Complement C3 Complement C4 Hep Bs Antigen Hep Bs Antibody Hep B Core Total Ab Blood Type B Positive Antibody Screen NEGATIVE Crossmatch 06/22/24 06/22/24 06/22/24 05:27 05:27 05:27 WBC 22.0 H RBC 3.41 L Hgb 7.4 L Hct 23.0 L MCV 67.4 L MCH 21.7 L MCHC 32.2 RDW 23.9 H Plt Count 293 MPV 10.7 Immature Gran % (Auto) Neut % (Auto) Lymph % (Auto) [place] % (Auto) Eos % (Auto) Baso % (Auto) Lymph # (Auto) [place] # (Auto) Eos # (Auto) Baso # (Auto) Abs Immat Gran (auto) Absolute Neuts (auto) Absolute Nucleated RBC 0.090 H Nucleated RBC % (auto) 0.4 H Neutrophils % (Manual) Band Neutrophils % Lymphocytes % (Manual) Monocytes % (Manual) Metamyelocytes % Abs Neuts (Manual) Lymphocytes # (Manual) Monocytes # (Manual) Metamyelocytes # Nucleated RBCs Platelet Estimate Plt Morphology Comment RBC Morphology Target Cells Schistocytes VBG pH VBG pCO2 VBG pO2 VBG HCO3 VBG O2 Saturation VBG Base Excess Sodium Cancelled 132 L Potassium Cancelled 4.9 Chloride Cancelled Carbon Dioxide Anion Gap BUN Creatinine Estim Creat Clear Calc Estimated GFR POC Glucose Random Glucose Lactic Acid Lactic Acid F/U @ 2Hr Uric Acid Calcium Phosphorus Magnesium Total Bilirubin AST ALT Alkaline Phosphatase Total Protein Albumin Random Cortisol Salicylates Acetaminophen Complement C3 Complement C4 Hep Bs Antigen Hep Bs Antibody Hep B Core Total Ab Blood Type Antibody Screen Crossmatch 06/22/24 06/22/24 06/22/24 05:27 05:27 05:27 WBC RBC Hgb Hct MCV MCH MCHC RDW Plt Count MPV Immature Gran % (Auto) Neut % (Auto) Lymph % (Auto) [place] % (Auto) Eos % (Auto) Baso % (Auto) Lymph # (Auto) [place] # (Auto) Eos # (Auto) Baso # (Auto) Abs Immat Gran (auto) Absolute Neuts (auto) Absolute Nucleated RBC Nucleated RBC % (auto) Neutrophils % (Manual) Band Neutrophils % Lymphocytes % (Manual) Monocytes % (Manual) Metamyelocytes % Abs Neuts (Manual) Lymphocytes # (Manual) Monocytes # (Manual) Metamyelocytes # Nucleated RBCs Platelet Estimate Plt Morphology Comment RBC Morphology Target Cells Schistocytes VBG pH VBG pCO2 VBG pO2 VBG HCO3 VBG O2 Saturation VBG Base Excess Sodium Potassium Chloride 98 Carbon Dioxide Cancelled 20 L Anion Gap Cancelled 19 BUN Cancelled Creatinine Estim Creat Clear Calc Estimated GFR POC Glucose Random Glucose Lactic Acid Lactic Acid F/U @ 2Hr Uric Acid Calcium Phosphorus Magnesium Total Bilirubin AST ALT Alkaline Phosphatase Total Protein Albumin Random Cortisol Salicylates Acetaminophen Complement C3 Complement C4 Hep Bs Antigen Hep Bs Antibody Hep B Core Total Ab Blood Type Antibody Screen Crossmatch 06/22/24 06/22/24 06/22/24 05:27 05:27 05:27 WBC RBC Hgb Hct MCV MCH MCHC RDW Plt Count MPV Immature Gran % (Auto) Neut % (Auto) Lymph % (Auto) [place] % (Auto) Eos % (Auto) Baso % (Auto) Lymph # (Auto) [place] # (Auto) Eos # (Auto) Baso # (Auto) Abs Immat Gran (auto) Absolute Neuts (auto) Absolute Nucleated RBC Nucleated RBC % (auto) Neutrophils % (Manual) Band Neutrophils % Lymphocytes % (Manual) Monocytes % (Manual) Metamyelocytes % Abs Neuts (Manual) Lymphocytes # (Manual) Monocytes # (Manual) Metamyelocytes # Nucleated RBCs Platelet Estimate Plt Morphology Comment RBC Morphology Target Cells Schistocytes VBG pH VBG pCO2 VBG pO2 VBG HCO3 VBG O2 Saturation VBG Base Excess Sodium Potassium Chloride Carbon Dioxide Anion Gap BUN 56 H Creatinine Cancelled 5.52 H* Estim Creat Clear Calc Cancelled 16.6 Estimated GFR Cancelled POC Glucose Random Glucose Lactic Acid Lactic Acid F/U @ 2Hr Uric Acid Calcium Phosphorus Magnesium Total Bilirubin AST ALT Alkaline Phosphatase Total Protein Albumin Random Cortisol Salicylates Acetaminophen Complement C3 Complement C4 Hep Bs Antigen Hep Bs Antibody Hep B Core Total Ab Blood Type Antibody Screen Crossmatch 06/22/24 06/22/24 06/22/24 05:27 05:27 05:27 WBC RBC Hgb Hct MCV MCH MCHC RDW Plt Count MPV Immature Gran % (Auto) Neut % (Auto) Lymph % (Auto) [place] % (Auto) Eos % (Auto) Baso % (Auto) Lymph # (Auto) [place] # (Auto) Eos # (Auto) Baso # (Auto) Abs Immat Gran (auto) Absolute Neuts (auto) Absolute Nucleated RBC Nucleated RBC % (auto) Neutrophils % (Manual) Band Neutrophils % Lymphocytes % (Manual) Monocytes % (Manual) Metamyelocytes % Abs Neuts (Manual) Lymphocytes # (Manual) Monocytes # (Manual) Metamyelocytes # Nucleated RBCs Platelet Estimate Plt Morphology Comment RBC Morphology Target Cells Schistocytes VBG pH VBG pCO2 VBG pO2 VBG HCO3 VBG O2 Saturation VBG Base Excess Sodium Potassium Chloride Carbon Dioxide Anion Gap BUN Creatinine Estim Creat Clear Calc Estimated GFR 8 POC Glucose Random Glucose Cancelled 96 Lactic Acid Lactic Acid F/U @ 2Hr Uric Acid Calcium Cancelled 8.2 L Phosphorus 5.7 H Magnesium 2.1 Total Bilirubin 4.1 H AST 269 H ALT 89 H Alkaline Phosphatase 256 H Total Protein 6.7 Albumin 3.2 L Random Cortisol 22.8 Salicylates < 5.0 L Acetaminophen < 3 Complement C3 Complement C4 Hep Bs Antigen Hep Bs Antibody Hep B Core Total Ab Blood Type Antibody Screen Crossmatch 06/22/24 06/22/24 06/22/24 05:31 07:29 09:30 WBC RBC Hgb Hct MCV MCH MCHC RDW Plt Count MPV Immature Gran % (Auto) Neut % (Auto) Lymph % (Auto) [place] % (Auto) Eos % (Auto) Baso % (Auto) Lymph # (Auto) [place] # (Auto) Eos # (Auto) Baso # (Auto) Abs Immat Gran (auto) Absolute Neuts (auto) Absolute Nucleated RBC Nucleated RBC % (auto) Neutrophils % (Manual) Band Neutrophils % Lymphocytes % (Manual) Monocytes % (Manual) Metamyelocytes % Abs Neuts (Manual) Lymphocytes # (Manual) Monocytes # (Manual) Metamyelocytes # Nucleated RBCs Platelet Estimate Plt Morphology Comment RBC Morphology Target Cells Schistocytes VBG pH 7.45 H VBG pCO2 29 VBG pO2 67 VBG HCO3 20 L VBG O2 Saturation 95.0 VBG Base Excess -2.2 Sodium Potassium Chloride Carbon Dioxide Anion Gap BUN Creatinine Estim Creat Clear Calc Estimated GFR POC Glucose 105 Random Glucose Lactic Acid 2.2 H* Lactic Acid F/U @ 2Hr Uric Acid Calcium Phosphorus Magnesium Total Bilirubin AST ALT Alkaline Phosphatase Total Protein Albumin Random Cortisol Salicylates Acetaminophen Complement C3 Complement C4 Hep Bs Antigen Hep Bs Antibody Hep B Core Total Ab Blood Type Antibody Screen Crossmatch 06/22/24 06/22/24 11:30 11:56 WBC RBC Hgb Hct MCV MCH MCHC RDW Plt Count MPV Immature Gran % (Auto) Neut % (Auto) Lymph % (Auto) [place] % (Auto) Eos % (Auto) Baso % (Auto) Lymph # (Auto) [place] # (Auto) Eos # (Auto) Baso # (Auto) Abs Immat Gran (auto) Absolute Neuts (auto) Absolute Nucleated RBC Nucleated RBC % (auto) Neutrophils % (Manual) Band Neutrophils % Lymphocytes % (Manual) Monocytes % (Manual) Metamyelocytes % Abs Neuts (Manual) Lymphocytes # (Manual) Monocytes # (Manual) Metamyelocytes # Nucleated RBCs Platelet Estimate Plt Morphology Comment RBC Morphology Target Cells Schistocytes VBG pH VBG pCO2 VBG pO2 VBG HCO3 VBG O2 Saturation VBG Base Excess Sodium Potassium Chloride Carbon Dioxide Anion Gap BUN Creatinine Estim Creat Clear Calc Estimated GFR POC Glucose 103 Random Glucose Lactic Acid Lactic Acid F/U @ 2Hr 2.5 H* Uric Acid Calcium Phosphorus Magnesium Total Bilirubin AST ALT Alkaline Phosphatase Total Protein Albumin Random Cortisol Salicylates Acetaminophen Complement C3 Complement C4 Hep Bs Antigen Hep Bs Antibody Hep B Core Total Ab Blood Type Antibody Screen Crossmatch Microbiology Microbiology Results: Microbiology 06/18/24 15:26 Blood - Venous Blood Culture - Preliminary No growth after 48 hours. 02/02/25 15:26 Blood - Venous Blood Culture - Preliminary No growth after 48 hours. 06/18/24 20:10 Urine clean catch - Clean Catch Midstream Urine Culture - Final Procedures Date of Service Date of Service: 06/22/24 Assessment & Plan Assessment and plan (1) JAYSON (acute kidney injury): Status: Acute Plan JAYSON likely due to ATN vs direct infiltration of B cells into kidney versus tumor lysis( unlikely) Work up in progress; S/P HD catheter yesterday; Had HD yesterday; Due today and tomorrow Needs liver lesions biopsied ; Likely will need renal biopsy as well when stable cortisol level reviewed given hypotension and hyperkalemia ECHO to look @ LV/RV ; C/W rest of current supportive care for now Progress Note: Quality Stroke Does the patient have a stroke diagnosis?: No
--- NOTE | 2024-06-22 13:54 | P.PNCC_ITS ---
Subjective Subjective Date of Service: 06/22/24 Interval History: 59-year-old lady with underlying history of colon cancer status post right colectomy 5 years prior, abdominal hernia, morbid obesity, diabetes mellitus admitted on 06/18/2024 with right upper quadrant pain and nausea. Her CT abdomen showed liver lesion concerning for malignant etiology and multiple abdominal hernia with concern for incarceration. Patient was empirically treated for UTI. Hospital course significant for deteriorating renal function with anuria, metabolic acidosis, and hypotension patient was started hemodialysis support and requiring pressor support. Patient was transferred to intensive care unit. Patient was evaluated by General surgery and concern was raised patient is not a surgical candidate at this institution. Transfer to [facility] for surgical evaluation was requested. No events overnight. Critical Care Time (minutes): 60 Physical Exam 2 Vital Signs: Vital Signs: Last Vital Signs Temp 97.8 F 06/22/24 12:00 Pulse 84 06/22/24 13:50 Resp 25 H 06/22/24 13:00 BP 104/44 L 06/22/24 13:50 Pulse Ox 90 L 06/22/24 13:00 O2 Del Method Nasal Cannula 06/22/24 13:00 O2 Flow Rate 2 06/22/24 13:00 BMI result Body Mass Index 58.7 Const: General: no acute distress and lethargic (Arousable) Nutritional Appearance: obese Orientation/consciousness: lethargic (Arousable) Eyes: Sclerae: sclerae normal EOM: EOMs intact bilaterally Neck: Neck: Yes no lymphadenopathy, Yes trachea midline and Yes supple Resp: Effort & Inspection: normal respiratory effort and no respiratory distress Auscultation: clear to auscultation bilaterally Cardio: Rate: regular rate Rhythm: regular rhythm Heart sounds: no gallops, no murmurs and no rubs GI: Palpation (GI): Soft to palpation and Other GI palpation findings present ( Nontender) Auscultation: normal bowel sounds Extrem: General: No clubbing, No cyanosis and Yes edema (2+ bilateral) Objective Data Labs 06/22/24 05:27 06/22/24 05:27 Labs: Laboratory Results - last 24 hr 06/18/24 06/21/24 06/21/24 15:26 10:15 13:59 WBC RBC Hgb Hct MCV MCH MCHC RDW Plt Count MPV Immature Gran % (Auto) Neut % (Auto) Lymph % (Auto) [place] % (Auto) Eos % (Auto) Baso % (Auto) Lymph # (Auto) [place] # (Auto) Eos # (Auto) Baso # (Auto) Abs Immat Gran (auto) Absolute Neuts (auto) Absolute Nucleated RBC Nucleated RBC % (auto) Neutrophils % (Manual) Band Neutrophils % Lymphocytes % (Manual) Monocytes % (Manual) Metamyelocytes % Abs Neuts (Manual) Lymphocytes # (Manual) Monocytes # (Manual) Metamyelocytes # Nucleated RBCs Platelet Estimate Plt Morphology Comment RBC Morphology Target Cells Schistocytes VBG pH VBG pCO2 VBG pO2 VBG HCO3 VBG O2 Saturation VBG Base Excess Sodium Potassium Chloride Carbon Dioxide Anion Gap BUN Creatinine Estim Creat Clear Calc Estimated GFR POC Glucose Random Glucose Lactic Acid Lactic Acid F/U @ 2Hr Calcium Phosphorus Magnesium Total Bilirubin AST ALT Alkaline Phosphatase Total Protein Albumin Random Cortisol 26.3 Salicylates Acetaminophen Hep Bs Antigen Negative Hep Bs Antibody NONREACTIVE Hep B Core Total Ab Nonreactive Blood Type B Positive Antibody Screen NEGATIVE Crossmatch See Detail 06/21/24 06/21/24 06/21/24 16:10 20:15 20:20 WBC 22.4 H RBC 3.24 L Hgb 6.7 L* Hct 21.6 L MCV 66.7 L MCH 20.7 L MCHC 31.0 RDW 22.9 H Plt Count 303 MPV 10.2 Immature Gran % (Auto) Cancelled Neut % (Auto) Cancelled Lymph % (Auto) Cancelled [place] % (Auto) Cancelled Eos % (Auto) Cancelled Baso % (Auto) Cancelled Lymph # (Auto) Cancelled [place] # (Auto) Cancelled Eos # (Auto) Cancelled Baso # (Auto) Cancelled Abs Immat Gran (auto) Cancelled Absolute Neuts (auto) Cancelled Absolute Nucleated RBC 0.100 H Nucleated RBC % (auto) 0.4 H Neutrophils % (Manual) 83 H Band Neutrophils % 0 L Lymphocytes % (Manual) 9 L Monocytes % (Manual) 6 Metamyelocytes % 2 Abs Neuts (Manual) 18.6 H Lymphocytes # (Manual) 2.0 Monocytes # (Manual) 1.3 H Metamyelocytes # 0.4 Nucleated RBCs 1 H Platelet Estimate NORMAL Plt Morphology Comment NORMAL RBC Morphology NOTED Target Cells 1+ (5-14) Schistocytes 1+ (0-2) VBG pH 7.32 VBG pCO2 41 VBG pO2 72 VBG HCO3 22 VBG O2 Saturation Not Reportable VBG Base Excess -3.6 Sodium 132 L Potassium 4.9 Chloride 101 Carbon Dioxide 21 L Anion Gap 15 BUN 49 H Creatinine 4.80 H* Estim Creat Clear Calc 19.0 Estimated GFR 9 POC Glucose 90 Random Glucose 86 Lactic Acid Lactic Acid F/U @ 2Hr Calcium 7.4 L D Phosphorus 5.2 H Magnesium 2.1 Total Bilirubin AST ALT Alkaline Phosphatase Total Protein Albumin Random Cortisol Salicylates Acetaminophen Hep Bs Antigen Hep Bs Antibody Hep B Core Total Ab Blood Type Antibody Screen Crossmatch 06/22/24 06/22/24 06/22/24 00:30 05:27 05:27 WBC 22.0 H 22.0 H RBC 3.47 L 3.41 L Hgb 7.6 L 7.4 L Hct 23.4 L 23.0 L MCV 67.4 L 67.4 L MCH 21.9 L 21.7 L MCHC 32.5 32.2 RDW 24.1 H 23.9 H Plt Count 306 293 MPV 10.4 10.7 Immature Gran % (Auto) Neut % (Auto) Lymph % (Auto) [place] % (Auto) Eos % (Auto) Baso % (Auto) Lymph # (Auto) [place] # (Auto) Eos # (Auto) Baso # (Auto) Abs Immat Gran (auto) Absolute Neuts (auto) Absolute Nucleated RBC 0.090 H 0.090 H Nucleated RBC % (auto) 0.4 H 0.4 H Neutrophils % (Manual) Band Neutrophils % Lymphocytes % (Manual) Monocytes % (Manual) Metamyelocytes % Abs Neuts (Manual) Lymphocytes # (Manual) Monocytes # (Manual) Metamyelocytes # Nucleated RBCs Platelet Estimate Plt Morphology Comment RBC Morphology Target Cells Schistocytes VBG pH 7.31 L VBG pCO2 44 VBG pO2 70 VBG HCO3 22 VBG O2 Saturation 93.0 VBG Base Excess -3.3 Sodium 132 L Cancelled 132 L Potassium 5.1 Cancelled Chloride 99 Carbon Dioxide 18 L Anion Gap 20 BUN 53 H Creatinine 5.01 H* Estim Creat Clear Calc 18.3 Estimated GFR 9 POC Glucose Random Glucose 90 Lactic Acid Lactic Acid F/U @ 2Hr Calcium 7.9 L D Phosphorus Magnesium Total Bilirubin AST ALT Alkaline Phosphatase Total Protein Albumin Random Cortisol Salicylates Acetaminophen Hep Bs Antigen Hep Bs Antibody Hep B Core Total Ab Blood Type B Positive Antibody Screen NEGATIVE Crossmatch 06/22/24 06/22/24 06/22/24 05:27 05:27 05:27 WBC RBC Hgb Hct MCV MCH MCHC RDW Plt Count MPV Immature Gran % (Auto) Neut % (Auto) Lymph % (Auto) [place] % (Auto) Eos % (Auto) Baso % (Auto) Lymph # (Auto) [place] # (Auto) Eos # (Auto) Baso # (Auto) Abs Immat Gran (auto) Absolute Neuts (auto) Absolute Nucleated RBC Nucleated RBC % (auto) Neutrophils % (Manual) Band Neutrophils % Lymphocytes % (Manual) Monocytes % (Manual) Metamyelocytes % Abs Neuts (Manual) Lymphocytes # (Manual) Monocytes # (Manual) Metamyelocytes # Nucleated RBCs Platelet Estimate Plt Morphology Comment RBC Morphology Target Cells Schistocytes VBG pH VBG pCO2 VBG pO2 VBG HCO3 VBG O2 Saturation VBG Base Excess Sodium Potassium 4.9 Chloride Cancelled 98 Carbon Dioxide Cancelled 20 L Anion Gap Cancelled BUN Creatinine Estim Creat Clear Calc Estimated GFR POC Glucose Random Glucose Lactic Acid Lactic Acid F/U @ 2Hr Calcium Phosphorus Magnesium Total Bilirubin AST ALT Alkaline Phosphatase Total Protein Albumin Random Cortisol Salicylates Acetaminophen Hep Bs Antigen Hep Bs Antibody Hep B Core Total Ab Blood Type Antibody Screen Crossmatch 06/22/24 06/22/24 06/22/24 05:27 05:27 05:27 WBC RBC Hgb Hct MCV MCH MCHC RDW Plt Count MPV Immature Gran % (Auto) Neut % (Auto) Lymph % (Auto) [place] % (Auto) Eos % (Auto) Baso % (Auto) Lymph # (Auto) [place] # (Auto) Eos # (Auto) Baso # (Auto) Abs Immat Gran (auto) Absolute Neuts (auto) Absolute Nucleated RBC Nucleated RBC % (auto) Neutrophils % (Manual) Band Neutrophils % Lymphocytes % (Manual) Monocytes % (Manual) Metamyelocytes % Abs Neuts (Manual) Lymphocytes # (Manual) Monocytes # (Manual) Metamyelocytes # Nucleated RBCs Platelet Estimate Plt Morphology Comment RBC Morphology Target Cells Schistocytes VBG pH VBG pCO2 VBG pO2 VBG HCO3 VBG O2 Saturation VBG Base Excess Sodium Potassium Chloride Carbon Dioxide Anion Gap 19 BUN Cancelled 56 H Creatinine Cancelled 5.52 H* Estim Creat Clear Calc Cancelled Estimated GFR POC Glucose Random Glucose Lactic Acid Lactic Acid F/U @ 2Hr Calcium Phosphorus Magnesium Total Bilirubin AST ALT Alkaline Phosphatase Total Protein Albumin Random Cortisol Salicylates Acetaminophen Hep Bs Antigen Hep Bs Antibody Hep B Core Total Ab Blood Type Antibody Screen Crossmatch 06/22/24 06/22/24 06/22/24 05:27 05:27 05:27 WBC RBC Hgb Hct MCV MCH MCHC RDW Plt Count MPV Immature Gran % (Auto) Neut % (Auto) Lymph % (Auto) [place] % (Auto) Eos % (Auto) Baso % (Auto) Lymph # (Auto) [place] # (Auto) Eos # (Auto) Baso # (Auto) Abs Immat Gran (auto) Absolute Neuts (auto) Absolute Nucleated RBC Nucleated RBC % (auto) Neutrophils % (Manual) Band Neutrophils % Lymphocytes % (Manual) Monocytes % (Manual) Metamyelocytes % Abs Neuts (Manual) Lymphocytes # (Manual) Monocytes # (Manual) Metamyelocytes # Nucleated RBCs Platelet Estimate Plt Morphology Comment RBC Morphology Target Cells Schistocytes VBG pH VBG pCO2 VBG pO2 VBG HCO3 VBG O2 Saturation VBG Base Excess Sodium Potassium Chloride Carbon Dioxide Anion Gap BUN Creatinine Estim Creat Clear Calc 16.6 Estimated GFR Cancelled 8 POC Glucose Random Glucose Cancelled 96 Lactic Acid Lactic Acid F/U @ 2Hr Calcium Cancelled Phosphorus Magnesium Total Bilirubin AST ALT Alkaline Phosphatase Total Protein Albumin Random Cortisol Salicylates Acetaminophen Hep Bs Antigen Hep Bs Antibody Hep B Core Total Ab Blood Type Antibody Screen Crossmatch 06/22/24 06/22/24 06/22/24 05:27 05:31 07:29 WBC RBC Hgb Hct MCV MCH MCHC RDW Plt Count MPV Immature Gran % (Auto) Neut % (Auto) Lymph % (Auto) [place] % (Auto) Eos % (Auto) Baso % (Auto) Lymph # (Auto) [place] # (Auto) Eos # (Auto) Baso # (Auto) Abs Immat Gran (auto) Absolute Neuts (auto) Absolute Nucleated RBC Nucleated RBC % (auto) Neutrophils % (Manual) Band Neutrophils % Lymphocytes % (Manual) Monocytes % (Manual) Metamyelocytes % Abs Neuts (Manual) Lymphocytes # (Manual) Monocytes # (Manual) Metamyelocytes # Nucleated RBCs Platelet Estimate Plt Morphology Comment RBC Morphology Target Cells Schistocytes VBG pH 7.45 H VBG pCO2 29 VBG pO2 67 VBG HCO3 20 L VBG O2 Saturation 95.0 VBG Base Excess -2.2 Sodium Potassium Chloride Carbon Dioxide Anion Gap BUN Creatinine Estim Creat Clear Calc Estimated GFR POC Glucose 105 Random Glucose Lactic Acid Lactic Acid F/U @ 2Hr Calcium 8.2 L Phosphorus 5.7 H Magnesium 2.1 Total Bilirubin 4.1 H AST 269 H ALT 89 H Alkaline Phosphatase 256 H Total Protein 6.7 Albumin 3.2 L Random Cortisol 22.8 Salicylates < 5.0 L Acetaminophen < 3 Hep Bs Antigen Hep Bs Antibody Hep B Core Total Ab Blood Type Antibody Screen Crossmatch 06/22/24 06/22/24 06/22/24 09:30 11:30 11:56 WBC RBC Hgb Hct MCV MCH MCHC RDW Plt Count MPV Immature Gran % (Auto) Neut % (Auto) Lymph % (Auto) [place] % (Auto) Eos % (Auto) Baso % (Auto) Lymph # (Auto) [place] # (Auto) Eos # (Auto) Baso # (Auto) Abs Immat Gran (auto) Absolute Neuts (auto) Absolute Nucleated RBC Nucleated RBC % (auto) Neutrophils % (Manual) Band Neutrophils % Lymphocytes % (Manual) Monocytes % (Manual) Metamyelocytes % Abs Neuts (Manual) Lymphocytes # (Manual) Monocytes # (Manual) Metamyelocytes # Nucleated RBCs Platelet Estimate Plt Morphology Comment RBC Morphology Target Cells Schistocytes VBG pH VBG pCO2 VBG pO2 VBG HCO3 VBG O2 Saturation VBG Base Excess Sodium Potassium Chloride Carbon Dioxide Anion Gap BUN Creatinine Estim Creat Clear Calc Estimated GFR POC Glucose 103 Random Glucose Lactic Acid 2.2 H* Lactic Acid F/U @ 2Hr 2.5 H* Calcium Phosphorus Magnesium Total Bilirubin AST ALT Alkaline Phosphatase Total Protein Albumin Random Cortisol Salicylates Acetaminophen Hep Bs Antigen Hep Bs Antibody Hep B Core Total Ab Blood Type Antibody Screen Crossmatch Microbiology Microbiology Results: Microbiology 06/18/24 15:26 Blood - Venous Blood Culture - Preliminary No growth after 48 hours. 06/18/24 15:26 Blood - Venous Blood Culture - Preliminary No growth after 48 hours. 06/18/24 20:10 Urine clean catch - Clean Catch Midstream Urine Culture - Final Progress Note: A&P Assessment and plan (1) Liver masses: Status: Acute (2) Abdominal pain: Status: Acute (3) Incisional hernia: Status: Acute (4) JAYSON (acute kidney injury): Status: Acute (5) Shock: Status: Acute Plan Assessment: 59-year-old lady with prior history of colon cancer status post right colectomy admitted with abdominal pain and noted to have liver lesions and multiple hernias with concerns incarceration, hospital course further complicated by acute renal failure requiring dialysis support Plan: Neuro: Metabolic encephalopathy, improving with dialysis. Cardiac: Shock, continue to titrate off pressor support as tolerated. Pulmonary: No acute issues. Renal: Acute renal failure requiring hemodialysis support. Nephrology service care appreciated. Endo: No acute issues. GI: Liver lesions, will require IR biopsy as her condition improves. Concern for incarcerated hernia and early ischemic. General surgery service care appreciated. Not a surgical candidate at this facility. Request for transfer to [facility] placed. ID: Cultures negative to date, continue empiric antibiotics. Heme/Onc: No acute issues. Psych: No acute issues. Miscellaneous: No acute issues. Prophylaxis: Heparin Diet: NPO Critical care time spent: 60 minute Quality Stroke Does the patient have a stroke diagnosis?: No VTE Prior VTE?: No VTE Risk Level:: Medical - moderate - high VTE Device Contraindication: N/A - Device Ordered VTE Drug Contraindication: Treatment Not Indicated
[2024-06-22 13:59] LABS: Reflex Lactate? 2 Y
[2024-06-22 14:57] LABS: ~Lactic Acid-LAB USE ONLY 2.6 mmol/L (0.5-2.0)
--- NOTE | 2024-06-22 15:16 | MHC.CM.PN ---
Pt to be transferred to [facility] for surgical intervention - MD has spoken with family about transfer.
[2024-06-22] MEDS: Heparin Sodium,Porcine 5,000 UNIT/ML VIAL 5000 UNIT SUBCUT ×2 (15:34→21:53)
--- NOTE | 2024-06-22 16:25 | PC.NURSE ---
Pt largely obtunded throughout day; occasionally nodding/shaking head to questions. Large liquid BM in AM. Dialysis session in AM, BPs became soft. Levophed gtt started and titrated per JUL. [place] removed per MD as pt is anuric. Lactic levels increased throughout day, MD aware. Plan is for patient to be transferred to [facility], process ongoing.
[2024-06-22 16:29] LABS: Glucose, Whole Blood 111 mg/dL (60-115)
[2024-06-22] MEDS: Norepinephrine Bitartrate/D5W 8 MG/250 ML PLAST..BAG 27.02 MG IVCONT (17:41)
[2024-06-22] MEDS: bisacodyL 10 MG SUPP.RECT PR (20:27)
[2024-06-22 21:31] LABS: Glucose, Whole Blood 115 mg/dL (60-115)
[2024-06-22 21:50] LABS: Hematocrit 24.1 % (37.0-47.0); Hemoglobin 7.9 g/dl (12.0-16.0); Mean Corpuscular HGB Conc 32.8 g/dl (31.0-35.0); Mean Corpuscular Hemoglobin 21.9 pg (27.0-33.0); Mean Corpuscular Volume 66.8 fL (80.0-98.0); Platelet Count 336 X10*3/uL (160-400); Red Blood Count 3.61 X10*6/uL (4.20-5.50); Red Cell Distribution Width 24.8 % (11.0-16.0)
[2024-06-22 22:02] LABS: Glucose, Whole Blood 116 mg/dL (60-115)
[2024-06-22 22:09] LABS: VBG Base Excess -0.9 mmol/L; VBG HCO3 24 mmol/L (22-26); VBG pCO2 45 mmHg; VBG pH 7.34 (7.32-7.43); VBG pO2 63 mmHg
[2024-06-22 22:10] LABS: Albumin Level 3.3 g/dL (3.5-5.0); Anion Gap 22 (12-20); Blood Urea Nitrogen 45 mg/dL (9-16); Calcium 8.3 mg/dL (8.4-10.2); Carbon Dioxide 19 mmol/L (22-29); Chloride 98 mmol/L (96-108); Creatinine Clr Calc Pharmacy 19.1; Estimated Glomerular Filt Rate 9; Glucose Random 113 mg/dL (60-115); Phosphorus 4.7 mg/dL (2.7-4.5); Potassium 4.4 mmol/L (3.3-5.1); Sodium 135 mmol/L (135-145)
[2024-06-22 22:32] LABS: NRBC Pct Auto 1.7 /100WBC (0.0-0.2)
[2024-06-22 22:33] LABS: White Blood Count 30.4 X10*3/uL (4.8-10.8)
[2024-06-22 22:45] LABS: Band Neutrophils Percent 1 % (3-5); Lymphocytes Absolute Manual 1.8 X10*3/uL (1.2-4.9); Lymphocytes Percent Manual 6 % (20-40); Metamyelocytes Absolute 0.9 X10*3/uL; Metamyelocytes Percent 3 %; Monocytes Absolute Manual 3.6 X10*3/uL (0.1-1.2); Monocytes Percent Manual 12 % (2-11); Myelocytes Absolute 0.6 X10*/uL; Myelocytes Percent 2 %; Neutrophils Absolute Manual 23.4 X10*3/uL (2.0-8.3); Neutrophils Percent Manual 76 % (45-73); Nucleated Red Blood Cells 6 /100WBC (0-0)
[2024-06-22 22:47] LABS: Ovalocytes 1+ (5-14) /OIF; Platelet Estimate NORMAL (NORMAL); Platelet Morphology Comment NORMAL; RBC Morphology NOTED
[2024-06-22 23:40] LABS: Venous Blood Gas Refer to POC result
[2024-06-23] VITALS (38 sets, daily range): BP systolic 88–124; BP diastolic 37–65; PULSE 81–166; RESP 15–44; TEMP 36.7–38.2; O2SAT 88–96; BMI 58.7
--- NOTE | 2024-06-23 | ECG_ITS ---
Test Reason : trop Blood Pressure : */* mmHG Vent. Rate : 154 BPM Atrial Rate : * BPM P-R Int : * ms QRS Dur : 144 ms QT Int : 310 ms P-R-T Axes : * 73 -70 degrees QTcB Int : 496 ms Atrial fibrillation with rapid ventricular response Right bundle branch block T wave abnormality, consider inferolateral ischemia Abnormal ECG When compared with ECG of 23-Dec-2023 10:24, Atrial fibrillation has replaced Sinus rhythm Vent. rate has increased by 100 bpm T wave inversion now evident in Anterior leads Referred By: Tonja Devries Electronically Signed By: Alex Wilson
[2024-06-23] MEDS: Norepinephrine Bitartrate/D5W 8 MG/250 ML PLAST..BAG 27.02 MG IVCONT (01:29)
--- NOTE | 2024-06-23 02:08 | P.HPCC_ITS ---
History of Present Illness Date of Service: 06/23/24 [facility] Past Medical History Medical History HTN (hypertension) Carpal tunnel syndrome of left wrist Asthma Morbid obesity Diabetes Colon cancer Thyroid cancer Family History Family history: reviewed and not pertinent Surgical History Surgical History H/O ventral hernia repair History of removal of laparoscopic gastric banding device Hx of laparoscopic gastric banding H/O colectomy H/O thyroidectomy Social History Social History Household Members: Children Housing: Apartment Do you presently have visiting nurse or other home services: Yes (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) Patient Tobacco Use Status: Never used Tobacco service: No Current occupational status: disabled Meds Allergies Allergy/AdvReac Type Severity Reaction Status Date / Time cortisone [CORTISONE] Allergy Mild RASH Verified 06/18/24 14:02 Penicillins [PENICILLINS] Allergy Mild RASH Verified 06/18/24 14:02 bee pollen [BEE STINGS] Allergy Unknown ANAPHYLAXIS Verified 06/18/24 14:02 penicillin V Allergy Unknown Itching Verified 06/18/24 14:02 adhesive Allergy Rash Verified 06/18/24 14:02 Cortisone Allergy Unknown Itching Uncoded 03/29/24 13:11 Active Medications: Current Medications Albuterol Sulfate (Albuterol Sulfate 90 Mcg 8 Gm Inhaler) 2 puff INHALE Q4H PRN PRN Reason: Shortness Of Breath Or Wheezing Bisacodyl (Bisacodyl 10 Mg Supp.Rect) 10 mg DE BEDTIME SYDNEE Last Admin: 06/22/24 20:27 Dose: 10 mg Fluticasone Propionate (Fluticasone Propionate Nasal 16 Gm [place]) 2 spray NOSTRIL-B DAILY PRN PRN Reason: Allergy Symptoms Heparin Sodium (Porcine) (Heparin Sodium,Porcine 5,000 Unit/Ml Vial) 5,000 unit INTRACATH ONCE ONE Stop: 06/23/24 06:01 Heparin Sodium (Porcine) (Heparin Sodium,Porcine 5,000 Unit/Ml Vial) 5,000 unit SUBCUT Q8H SYDNEE Last Admin: 06/22/24 21:53 Dose: 5,000 unit Metronidazole (Flagyl) 500 mg in 100 mls @ 100 mls/hr IV Q8H [facility] Last Infusion: 06/22/24 18:54 Dose: Infused Norepinephrine Bitartrate (Levophed) 8 mg in 250 mls @ 0 mls/hr IVCONT .Q0M [facility]; Protocol Last Admin: 06/23/24 01:29 Dose: 0.09 mcg/kg/min, 27.02 mls/hr Levofloxacin (Levaquin) 500 mg in 100 mls @ 100 mls/hr IV Q48H [facility] Last Infusion: 06/22/24 11:00 Dose: Infused Insulin Human Lispro (Insulin Lispro 100 Unit/Ml 3 Ml Vial) 0 unit SUBCUT QIDACHS [facility]; Protocol Last Admin: 06/22/24 22:02 Dose: Not Given Levothyroxine Sodium (Levothyroxine Sodium 200 Mcg Tablet) 400 mcg PO DAILY@0600 [facility] Last Admin: 06/22/24 05:29 Dose: Not Given Lidocaine (Lidocaine 4 % Patch Adh..Patch) 1 patch TRANSDERMA DAILY PRN PRN Reason: Pain Magnesium Hydroxide (Milk Of Magnesia 30 Ml Oral.Susp) 30 ml PO DAILY PRN PRN Reason: Constipation Melatonin (Melatonin 3 Mg Tablet) 6 mg PO BEDTIME PRN PRN Reason: Insomnia Last Admin: 06/20/24 19:32 Dose: 6 mg Naloxone HCl (Naloxone Hcl Nasal 4 Mg [place]) 4 mg NOSTRILALT DAILY PRN PRN Reason: opioid overdose Ondansetron HCl (Ondansetron Hcl 4 Mg/2 Ml Vial) 4 mg IVPUSH Q6H PRN PRN Reason: Nausea and Vomiting Last Admin: 06/21/24 11:51 Dose: 4 mg Sodium Chloride (0.9 % Sodium Chloride Flush 3 Ml Syringe) [facility] Last Admin: 06/22/24 22:13 Dose: Not Given Home Medications ?Medication ?Instructions ?Recorded ?Confirmed ?Last Taken ?Type levothyroxine 200 mcg tablet 400 mcg PO DAILY@0600 02/26/21 06/19/24 06/18/24 History lidocaine 5 % topical patch 1 patch topical DAILY PRN Pain 02/26/21 06/19/24 Unknown History multivitamin with folic acid 400 1 tab PO DAILY 02/26/21 06/19/24 06/18/24 History mcg tablet (Daily-[place] (with folic acid)) oxycodone-acetaminophen 7.5 mg-325 1 tab PO QID PRN Pain, Moderate 02/26/21 06/19/24 Unknown History mg tablet pantoprazole 20 mg tablet,delayed 20 mg PO DAILY@0630 02/26/21 06/19/24 06/18/24 History release paroxetine HCl 40 mg tablet 40 mg PO DAILY 02/26/21 06/19/24 06/18/24 History zolpidem 10 mg tablet 10 mg PO BEDTIME PRN Sleep 02/26/21 06/19/24 Unknown History diclofenac sodium 1 % topical gel 2 g topical BID PRN Pain 02/10/22 06/19/24 Unknown History docusate sodium 100 mg capsule 100 mg PO BID 02/10/22 06/19/24 06/18/24 History fluticasone propionate 50 2 spray intranasal DAILY PRN 02/10/22 06/19/24 Unknown History mcg/actuation nasal Allergy Symptoms spray,suspension losartan 25 mg tablet 25 mg PO DAILY 02/10/22 06/19/24 06/18/24 History naloxone 4 mg/actuation nasal 1 spray intranasal DAILY PRN 02/10/22 06/19/24 06/18/24 History spray (Narcan) Opioid Overdose ondansetron HCl 4 mg tablet 4 mg PO TID PRN nausea 02/10/22 06/19/24 Unknown History albuterol sulfate 90 mcg/actuation 2 puff inhalation Q4-6H PRN 06/19/24 06/19/24 Unknown History aerosol inhaler (Ventolin HFA) Shortness Of Breath Or Wheezing dulaglutide 0.75 mg/0.5 mL 0.75 mg subcut SA 06/19/24 06/19/24 06/10/24 History subcutaneous pen injector (Trulicity) empagliflozin 12.5 mg-metformin ER 1 tab PO DAILY 06/19/24 06/19/24 06/18/24 History 1,000 mg tablet,extended rel 24 hr (Synjardy XR) ferrous sulfate 325 mg (65 mg 325 mg PO DAILY 06/19/24 06/19/24 06/18/24 History iron) tablet gabapentin 400 mg capsule 400 mg PO TID 06/19/24 06/19/24 06/18/24 History hydroxyzine HCl 10 mg tablet 10 - 20 mg PO Q6H PRN anxiety 06/19/24 06/19/24 Unknown History lactulose 10 gram/15 mL oral 15 ml PO DAILY 06/19/24 06/19/24 06/18/24 History solution Physical Exam 2 Vital Signs: Vital Signs: Last Vital Signs Temp 100.8 F H 06/22/24 20:27 Pulse 94 06/23/24 01:29 Resp 31 H 06/23/24 01:00 BP 114/51 L 06/23/24 01:29 Pulse Ox 93 06/23/24 01:00 O2 Del Method Nasal Cannula 06/23/24 01:00 O2 Flow Rate 2 06/23/24 01:00 BMI result Body Mass Index 58.7 Results Labs 06/22/24 21:40 06/22/24 21:40 Labs: Laboratory Results - last 24 hr 06/21/24 06/22/24 06/22/24 10:15 00:30 05:27 MCV 67.4 L MCH 21.7 L MCHC 32.2 RDW 23.9 H Plt Count 293 MPV 10.7 Immature Gran % (Auto) Neut % (Auto) Lymph % (Auto) [place] % (Auto) Eos % (Auto) Baso % (Auto) Lymph # (Auto) [place] # (Auto) Eos # (Auto) Baso # (Auto) Abs Immat Gran (auto) Absolute Neuts (auto) Absolute Nucleated RBC 0.090 H Nucleated RBC % (auto) 0.4 H Neutrophils % (Manual) Band Neutrophils % Lymphocytes % (Manual) Monocytes % (Manual) Metamyelocytes % Myelocytes % Abs Neuts (Manual) Lymphocytes # (Manual) Monocytes # (Manual) Metamyelocytes # Myelocytes # Nucleated RBCs Platelet Estimate Plt Morphology Comment RBC Morphology Ovalocytes VBG pH VBG pCO2 VBG pO2 VBG HCO3 VBG O2 Saturation VBG Base Excess Anion Gap Cancelled Estim Creat Clear Calc Estimated GFR POC Glucose Random Glucose Lactic Acid Lactic Acid F/U @ 2Hr Lactic Acid F/U @ 4Hr Calcium Phosphorus Magnesium Total Bilirubin AST ALT Alkaline Phosphatase Total Protein Albumin Random Cortisol Salicylates Acetaminophen Hep Bs Antigen Negative Hep Bs Antibody NONREACTIVE Hep B Core Total Ab Nonreactive Blood Type B Positive Antibody Screen NEGATIVE 06/22/24 06/22/24 06/22/24 05:27 05:27 05:27 MCV MCH MCHC RDW Plt Count MPV Immature Gran % (Auto) Neut % (Auto) Lymph % (Auto) [place] % (Auto) Eos % (Auto) Baso % (Auto) Lymph # (Auto) [place] # (Auto) Eos # (Auto) Baso # (Auto) Abs Immat Gran (auto) Absolute Neuts (auto) Absolute Nucleated RBC Nucleated RBC % (auto) Neutrophils % (Manual) Band Neutrophils % Lymphocytes % (Manual) Monocytes % (Manual) Metamyelocytes % Myelocytes % Abs Neuts (Manual) Lymphocytes # (Manual) Monocytes # (Manual) Metamyelocytes # Myelocytes # Nucleated RBCs Platelet Estimate Plt Morphology Comment RBC Morphology Ovalocytes VBG pH VBG pCO2 VBG pO2 VBG HCO3 VBG O2 Saturation VBG Base Excess Anion Gap 19 Estim Creat Clear Calc Cancelled 16.6 Estimated GFR Cancelled 8 POC Glucose Random Glucose Cancelled Lactic Acid Lactic Acid F/U @ 2Hr Lactic Acid F/U @ 4Hr Calcium Phosphorus Magnesium Total Bilirubin AST ALT Alkaline Phosphatase Total Protein Albumin Random Cortisol Salicylates Acetaminophen Hep Bs Antigen Hep Bs Antibody Hep B Core Total Ab Blood Type Antibody Screen 06/22/24 06/22/24 06/22/24 05:27 05:27 05:31 MCV MCH MCHC RDW Plt Count MPV Immature Gran % (Auto) Neut % (Auto) Lymph % (Auto) [place] % (Auto) Eos % (Auto) Baso % (Auto) Lymph # (Auto) [place] # (Auto) Eos # (Auto) Baso # (Auto) Abs Immat Gran (auto) Absolute Neuts (auto) Absolute Nucleated RBC Nucleated RBC % (auto) Neutrophils % (Manual) Band Neutrophils % Lymphocytes % (Manual) Monocytes % (Manual) Metamyelocytes % Myelocytes % Abs Neuts (Manual) Lymphocytes # (Manual) Monocytes # (Manual) Metamyelocytes # Myelocytes # Nucleated RBCs Platelet Estimate Plt Morphology Comment RBC Morphology Ovalocytes VBG pH 7.45 H VBG pCO2 29 VBG pO2 67 VBG HCO3 20 L VBG O2 Saturation 95.0 VBG Base Excess -2.2 Anion Gap Estim Creat Clear Calc Estimated GFR POC Glucose Random Glucose 96 Lactic Acid Lactic Acid F/U @ 2Hr Lactic Acid F/U @ 4Hr Calcium Cancelled 8.2 L Phosphorus 5.7 H Magnesium 2.1 Total Bilirubin 4.1 H AST 269 H ALT 89 H Alkaline Phosphatase 256 H Total Protein 6.7 Albumin 3.2 L Random Cortisol 22.8 Salicylates < 5.0 L Acetaminophen < 3 Hep Bs Antigen Hep Bs Antibody Hep B Core Total Ab Blood Type Antibody Screen 06/22/24 06/22/24 06/22/24 07:29 09:30 11:30 MCV MCH MCHC RDW Plt Count MPV Immature Gran % (Auto) Neut % (Auto) Lymph % (Auto) [place] % (Auto) Eos % (Auto) Baso % (Auto) Lymph # (Auto) [place] # (Auto) Eos # (Auto) Baso # (Auto) Abs Immat Gran (auto) Absolute Neuts (auto) Absolute Nucleated RBC Nucleated RBC % (auto) Neutrophils % (Manual) Band Neutrophils % Lymphocytes % (Manual) Monocytes % (Manual) Metamyelocytes % Myelocytes % Abs Neuts (Manual) Lymphocytes # (Manual) Monocytes # (Manual) Metamyelocytes # Myelocytes # Nucleated RBCs Platelet Estimate Plt Morphology Comment RBC Morphology Ovalocytes VBG pH VBG pCO2 VBG pO2 VBG HCO3 VBG O2 Saturation VBG Base Excess Anion Gap Estim Creat Clear Calc Estimated GFR POC Glucose 105 103 Random Glucose Lactic Acid 2.2 H* Lactic Acid F/U @ 2Hr Lactic Acid F/U @ 4Hr Calcium Phosphorus Magnesium Total Bilirubin AST ALT Alkaline Phosphatase Total Protein Albumin Random Cortisol Salicylates Acetaminophen Hep Bs Antigen Hep Bs Antibody Hep B Core Total Ab Blood Type Antibody Screen 06/22/24 06/22/24 06/22/24 11:56 14:25 16:26 MCV MCH MCHC RDW Plt Count MPV Immature Gran % (Auto) Neut % (Auto) Lymph % (Auto) [place] % (Auto) Eos % (Auto) Baso % (Auto) Lymph # (Auto) [place] # (Auto) Eos # (Auto) Baso # (Auto) Abs Immat Gran (auto) Absolute Neuts (auto) Absolute Nucleated RBC Nucleated RBC % (auto) Neutrophils % (Manual) Band Neutrophils % Lymphocytes % (Manual) Monocytes % (Manual) Metamyelocytes % Myelocytes % Abs Neuts (Manual) Lymphocytes # (Manual) Monocytes # (Manual) Metamyelocytes # Myelocytes # Nucleated RBCs Platelet Estimate Plt Morphology Comment RBC Morphology Ovalocytes VBG pH VBG pCO2 VBG pO2 VBG HCO3 VBG O2 Saturation VBG Base Excess Anion Gap Estim Creat Clear Calc Estimated GFR POC Glucose 111 Random Glucose Lactic Acid Lactic Acid F/U @ 2Hr 2.5 H* Lactic Acid F/U @ 4Hr 2.6 H* Calcium Phosphorus Magnesium Total Bilirubin AST ALT Alkaline Phosphatase Total Protein Albumin Random Cortisol Salicylates Acetaminophen Hep Bs Antigen Hep Bs Antibody Hep B Core Total Ab Blood Type Antibody Screen 06/22/24 06/22/24 06/22/24 21:28 21:40 21:45 MCV 66.8 L MCH 21.9 L MCHC 32.8 RDW 24.8 H Plt Count 336 MPV 10.0 Immature Gran % (Auto) Cancelled Neut % (Auto) Cancelled Lymph % (Auto) Cancelled [place] % (Auto) Cancelled Eos % (Auto) Cancelled Baso % (Auto) Cancelled Lymph # (Auto) Cancelled [place] # (Auto) Cancelled Eos # (Auto) Cancelled Baso # (Auto) Cancelled Abs Immat Gran (auto) Cancelled Absolute Neuts (auto) Cancelled Absolute Nucleated RBC 0.510 H Nucleated RBC % (auto) 1.7 H Neutrophils % (Manual) 76 H Band Neutrophils % 1 L Lymphocytes % (Manual) 6 L Monocytes % (Manual) 12 H Metamyelocytes % 3 Myelocytes % 2 Abs Neuts (Manual) 23.4 H Lymphocytes # (Manual) 1.8 Monocytes # (Manual) 3.6 H Metamyelocytes # 0.9 Myelocytes # 0.6 Nucleated RBCs 6 H Platelet Estimate NORMAL Plt Morphology Comment NORMAL RBC Morphology NOTED Ovalocytes 1+ (5-14) VBG pH 7.34 VBG pCO2 45 VBG pO2 63 VBG HCO3 24 VBG O2 Saturation 88.0 VBG Base Excess -0.9 Anion Gap 22 H Estim Creat Clear Calc 19.1 Estimated GFR 9 POC Glucose 115 Random Glucose 113 Lactic Acid Lactic Acid F/U @ 2Hr Lactic Acid F/U @ 4Hr Calcium 8.3 L Phosphorus 4.7 H Magnesium 2.0 Total Bilirubin AST ALT Alkaline Phosphatase Total Protein Albumin 3.3 L Random Cortisol Salicylates Acetaminophen Hep Bs Antigen Hep Bs Antibody Hep B Core Total Ab Blood Type Antibody Screen 06/22/24 21:58 MCV MCH MCHC RDW Plt Count MPV Immature Gran % (Auto) Neut % (Auto) Lymph % (Auto) [place] % (Auto) Eos % (Auto) Baso % (Auto) Lymph # (Auto) [place] # (Auto) Eos # (Auto) Baso # (Auto) Abs Immat Gran (auto) Absolute Neuts (auto) Absolute Nucleated RBC Nucleated RBC % (auto) Neutrophils % (Manual) Band Neutrophils % Lymphocytes % (Manual) Monocytes % (Manual) Metamyelocytes % Myelocytes % Abs Neuts (Manual) Lymphocytes # (Manual) Monocytes # (Manual) Metamyelocytes # Myelocytes # Nucleated RBCs Platelet Estimate Plt Morphology Comment RBC Morphology Ovalocytes VBG pH VBG pCO2 VBG pO2 VBG HCO3 VBG O2 Saturation VBG Base Excess Anion Gap Estim Creat Clear Calc Estimated GFR POC Glucose 116 H Random Glucose Lactic Acid Lactic Acid F/U @ 2Hr Lactic Acid F/U @ 4Hr Calcium Phosphorus Magnesium Total Bilirubin AST ALT Alkaline Phosphatase Total Protein Albumin Random Cortisol Salicylates Acetaminophen Hep Bs Antigen Hep Bs Antibody Hep B Core Total Ab Blood Type Antibody Screen
[2024-06-23] MEDS: Amiodarone/Dextrose 150 MG/100 ML PLAST..BAG 600 MG IV (03:20)
[2024-06-23] MEDS: Amiodarone HCL 900 MG in 0.9 % Sodium Chloride 500 ML 34.53 MG IVCONT (03:36)
[2024-06-23] MEDS: metroNIDAZOLE/NS 500 MG/100 ML PIGGYBACK 100 MG IV ×3 (03:56→18:11)
[2024-06-23 03:58] LABS: VBG Base Excess -4.5 mmol/L; VBG HCO3 20 mmol/L (22-26); VBG pCO2 36 mmHg; VBG pH 7.35 (7.32-7.43); VBG pO2 67 mmHg
[2024-06-23 04:07] LABS: Venous Blood Gas Refer to POC result
[2024-06-23 04:08] LABS: Hematocrit 23.7 % (37.0-47.0); Hemoglobin 7.8 g/dl (12.0-16.0); Mean Corpuscular HGB Conc 32.9 g/dl (31.0-35.0); Mean Corpuscular Volume 66.8 fL (80.0-98.0); Mean Platelet Volume 9.8 fL (9.4-12.3); NRBC Pct Auto 1.3 /100WBC (0.0-0.2); Platelet Count 301 X10*3/uL (160-400); Red Blood Count 3.55 X10*6/uL (4.20-5.50); Red Cell Distribution Width 24.4 % (11.0-16.0); WBC ABN SCTR FOR CBC 1; White Blood Count 27.3 X10*3/uL (4.8-10.8)
[2024-06-23 04:28] LABS: Band Neutrophils Percent 5 % (3-5); Lymphocytes Absolute Manual 1.6 X10*3/uL (1.2-4.9); Lymphocytes Percent Manual 6 % (20-40); Metamyelocytes Absolute 0.8 X10*3/uL; Metamyelocytes Percent 3 %; Monocytes Absolute Manual 1.9 X10*3/uL (0.1-1.2); Monocytes Percent Manual 7 % (2-11); Myelocytes Absolute 0.5 X10*/uL; Myelocytes Percent 2 %; Neutrophils Absolute Manual 22.4 X10*3/uL (2.0-8.3); Neutrophils Percent Manual 77 % (45-73); Nucleated Red Blood Cells 3 /100WBC (0-0)
[2024-06-23 04:29] LABS: Lactic Acid 3.8 mmol/L (0.5-2.0); Microcytosis 2+ (15-30) /OIF; RBC Morphology NOTED
[2024-06-23 04:30] LABS: Hypochromasia 1+ (5-14) /OIF; Ovalocytes 1+ (5-14) /OIF; Platelet Estimate NORMAL (NORMAL); Platelet Morphology Comment NORMAL; Polychromasia 1+ (0-2) /OIF; Schistocytes 1+ (0-2) /OIF; Spherocytes 1+ (0-2) /OIF; Target Cells 2+ (15-30) /OIF; Toxic Vacuolation PRESENT
[2024-06-23 04:37] LABS: Alanine Aminotransferase 79 U/L (0-31); Alkaline Phosphatase 240 U/L (39-117); Anion Gap 25 (12-20); Aspartate Amino Transferase 215 U/L (5-31); Blood Urea Nitrogen 52 mg/dL (9-16); Calcium 8.3 mg/dL (8.4-10.2); Carbon Dioxide 18 mmol/L (22-29); Chloride 98 mmol/L (96-108); Creatinine Clr Calc Pharmacy 17.3; Estimated Glomerular Filt Rate 8; Glucose Random 118 mg/dL (60-115); Phosphorus 4.9 mg/dL (2.7-4.5); Potassium 4.5 mmol/L (3.3-5.1); Sodium 136 mmol/L (135-145); Total Protein 6.7 g/dL (6.5-8.0)
[2024-06-23] MEDS: Albumin Human 25 % 50 ML 100 ML IV ×4 (04:45→06:01)
--- NOTE | 2024-06-23 04:47 | PM.CCN ---
Critical Care Event Note Summary Narrative: This case had a high probability of a clinically significant, sudden, or life threatening deterioration of this patient's condition which required my full and direct attention, intervention and personal management.
--- NOTE | 2024-06-23 04:48 | PM.EVENT ---
Documented by User: Tonja Devries NP 06/23/24 05:05 Event Note Date of Service: 06/23/24 Event Note: At approximately 0313 patient became tachycardic up to the 180s. EKG was obtained showing AFib with RVR. CBC with diff, CMP, lactate, blood gas, blood cultures, troponin were ordered. Amiodarone was started. Of note: blood was obtained from US guided IV. Pt is a very difficult stick. Phlebotomy was unable to obtain spec. Time Spent With Patient Time: Total time managing care of this patient today ____ minutes. Documented by User: Jake Briggs MD 06/23/24 11:42 Event Note Date of Service: 06/23/24
[2024-06-23 05:00] LABS: Troponin-I High Sensitivity 972.3 ng/L (<3.5-17.0)
[2024-06-23] MEDS: Heparin Sodium,Porcine 5,000 UNIT/ML VIAL 5000 UNIT SUBCUT ×3 (05:59→22:16)
[2024-06-23 06:02] LABS: Reflex Lactate? Lactic Acid Added
--- NOTE | 2024-06-23 06:50 | PC.NURSE ---
Addendum entered by Mirian Lee RN 06/23/24 07:09: edit: original note to reflect levophed gtt remained infusing at 0.07 mcg/kg/min per FRAUD MANAGER verbal order at time of handoff report. Original Note: Assumed care of patient at 02:30. At 03:13 patient was noted to be newly tachycardic sustaining in the 160?s with a max noted briefly in the 180?s. Levophed that had been infusing per MAR was held per protocol for HR >120 and Tonja Devries FRAUD MANAGER was immediately notified and to bedside. BP obtained was stable with MAP >65 while initially off levophed, though later required restarting and was titrated per FRAUD MANAGER verbal (FRAUD MANAGER aware of HR). Levophed remains at 0.07mcg/ EKG was obtained showing afib RVR. Patient was given an amiodarone loading dose followed by continuous gtt. Labs reviewed showing critical WBC earlier in the evening, discussed with FRAUD MANAGER. FRAUD MANAGER order for stat labs including lactic and BCx. WBC showed some improvement to 27.3.? Lactic back critical 3.8. Pt given albumin x4 bags per FRAUD MANAGER. Repeat lactic drawn and sent, pending results at this time. Troponin back critical as well as creatinine. FRAUD MANAGER made aware. Patient skin noted to be hot to touch while in afib, tachypneic upper 20?s to low 30?s though spo2 maintained on 2L nc that patient was on when care was assumed. Tachypnea not a new finding per FRAUD MANAGER. Breathing even and unlabored without distress or retractions. VBG obtained. Femoral temp obtained per FRAUD MANAGER as pt unstable to roll for rectal temp initially and observed mouth breathing/unable to obtain po. Later, a rectal was obtained once stable to roll, showed a temp of 100.8. Ice was applied to bilateral axilla and groin as well as behind neck per FRAUD MANAGER. Temp reassessment showed improvement to 99.8 rectal. Q2H repositioning as tolerated for blanchable redness noted to buttocks. Please see shift assessment, tasks in worklist, and MAR for full details. Plan of care continues. Handoff report given 06:45.
--- NOTE | 2024-06-23 07:31 | PM.EVENT ---
Event Note Date of Service: 06/22/24 Event Note: Call placed to general surgeon Dionte Mcmullen MD at [facility] who previously evaluated patient Awaiting return call at this time to discuss transfer Time Spent With Patient Time: Total time managing care of this patient today ____ minutes.
--- NOTE | 2024-06-23 08:00 | PM.PNGS ---
Subjective Subjective Date of Service: 06/23/24 Interval history: Patient undergoing HD; lactate elevated. Physical Exam Vital Signs: Vital Signs: Last Vital Signs Temp 99.8 F 06/23/24 06:00 Pulse 116 H 06/23/24 07:00 Resp 29 H 06/23/24 07:00 BP 104/65 06/23/24 07:00 Pulse Ox 94 06/23/24 07:00 O2 Del Method Nasal Cannula 06/23/24 07:00 O2 Flow Rate 2 06/23/24 07:00 BMI result Body Mass Index 58.7 Const: General: ill appearing and patient obtunded Nutritional Appearance: obese Orientation/consciousness: patient obtunded Resp: Effort & Inspection: tachypneic Cardio: Rate: tachycardic GI: Other: no apparent tenderness, large hernia Inspection: Yes Abdominal panniculus present Neuro: General: patient obtunded Objective Data Active Medications Albuterol Sulfate (Albuterol Sulfate 90 Mcg 8 Gm Inhaler) 2 puff INHALE Q4H PRN PRN Reason: Shortness Of Breath Or Wheezing Bisacodyl (Bisacodyl 10 Mg Supp.Rect) 10 mg [place] BEDTIME [facility] Last Admin: 06/22/24 20:27 Dose: 10 mg Documented By: MARCIO Fluticasone Propionate (Fluticasone Propionate Nasal 16 Gm [place]) 2 spray NOSTRIL-B DAILY PRN PRN Reason: Allergy Symptoms Heparin Sodium (Porcine) (Heparin Sodium,Porcine 5,000 Unit/Ml Vial) 5,000 unit SUBCUT Q8H [facility] Last Admin: 06/23/24 05:59 Dose: 5,000 unit Documented By: VIRGINIA Metronidazole (Flagyl) 500 mg in 100 mls @ 100 mls/hr IV Q8H [facility] Last Infusion: 06/23/24 04:56 Dose: Infused Documented By: VIRGINIA Norepinephrine Bitartrate (Levophed) 8 mg in 250 mls @ 0 mls/hr IVCONT .Q0M [facility]; Protocol Last Titration: 06/23/24 04:31 Dose: 0.07 mcg/kg/min, 21.01 mls/hr Documented By: VIRGINIA Levofloxacin (Levaquin) 500 mg in 100 mls @ 100 mls/hr IV Q48H [facility] Last Infusion: 06/22/24 11:00 Dose: Infused Documented By: MAGALI Amiodarone HCl 900 mg/ Sodium (Chloride) 518 mls @ 34.533 mls/hr IVCONT .Q15H1M [facility]; Protocol Last Admin: 06/23/24 03:36 Dose: 1 mg/min, 34.53 mls/hr Documented By: VIRGINIA Insulin Human Lispro (Insulin Lispro 100 Unit/Ml 3 Ml Vial) 0 unit SUBCUT QIDAS [facility]; Protocol Last Admin: 06/22/24 22:02 Dose: Not Given Documented By: MARCIO Non-Admin Reason: No Insulin Coverage Levothyroxine Sodium (Levothyroxine Sodium 200 Mcg Tablet) 400 mcg PO DAILY@0600 [facility] Last Admin: 06/23/24 05:32 Dose: Not Given Documented By: VIRGINIA Non-Admin Reason: NPO Lidocaine (Lidocaine 4 % Patch Adh..Patch) 1 patch TRANSDERMA DAILY PRN PRN Reason: Pain Magnesium Hydroxide (Milk Of Magnesia 30 Ml Oral.Susp) 30 ml PO DAILY PRN PRN Reason: Constipation Melatonin (Melatonin 3 Mg Tablet) 6 mg PO BEDTIME PRN PRN Reason: Insomnia Last Admin: 06/20/24 19:32 Dose: 6 mg Documented By: RICHELLE Naloxone HCl (Naloxone Hcl Nasal 4 Mg [place]) 4 mg NOSTRILALT DAILY PRN PRN Reason: opioid overdose Ondansetron HCl (Ondansetron Hcl 4 Mg/2 Ml Vial) 4 mg IVPUSH Q6H PRN PRN Reason: Nausea and Vomiting Last Admin: 06/21/24 11:51 Dose: 4 mg Documented By: JEROMY Sodium Chloride (0.9 % Sodium Chloride Flush 3 Ml Syringe) [facility] Last Admin: 06/22/24 22:13 Dose: Not Given Documented By: MARCIO Non-Admin Reason: IV Running Labs 06/23/24 03:59 06/23/24 03:59 Labs: Laboratory Results - last 24 hr 06/21/24 06/22/24 06/22/24 10:15 05:27 09:30 MCV MCH MCHC RDW Plt Count MPV Immature Gran % (Auto) Neut % (Auto) Lymph % (Auto) [place] % (Auto) Eos % (Auto) Baso % (Auto) Lymph # (Auto) [place] # (Auto) Eos # (Auto) Baso # (Auto) Abs Immat Gran (auto) Absolute Neuts (auto) Absolute Nucleated RBC Nucleated RBC % (auto) Neutrophils % (Manual) Band Neutrophils % Lymphocytes % (Manual) Monocytes % (Manual) Metamyelocytes % Myelocytes % Abs Neuts (Manual) Lymphocytes # (Manual) Monocytes # (Manual) Metamyelocytes # Myelocytes # Nucleated RBCs Toxic Vacuolation Platelet Estimate Plt Morphology Comment RBC Morphology Polychromasia Hypochromasia Microcytosis Spherocytes Target Cells Ovalocytes Schistocytes VBG pH VBG pCO2 VBG pO2 VBG HCO3 VBG O2 Saturation VBG Base Excess Anion Gap Estim Creat Clear Calc Estimated GFR POC Glucose Random Glucose Lactic Acid 2.2 H* Lactic Acid F/U @ 2Hr Lactic Acid F/U @ 4Hr Calcium Phosphorus Magnesium Total Bilirubin AST ALT Alkaline Phosphatase Troponin I High Sens Total Protein Albumin Salicylates < 5.0 L Acetaminophen < 3 Hep Bs Antigen Negative Hep Bs Antibody NONREACTIVE Hep B Core Total Ab Nonreactive 06/22/24 06/22/24 06/22/24 11:30 11:56 14:25 MCV MCH MCHC RDW Plt Count MPV Immature Gran % (Auto) Neut % (Auto) Lymph % (Auto) [place] % (Auto) Eos % (Auto) Baso % (Auto) Lymph # (Auto) [place] # (Auto) Eos # (Auto) Baso # (Auto) Abs Immat Gran (auto) Absolute Neuts (auto) Absolute Nucleated RBC Nucleated RBC % (auto) Neutrophils % (Manual) Band Neutrophils % Lymphocytes % (Manual) Monocytes % (Manual) Metamyelocytes % Myelocytes % Abs Neuts (Manual) Lymphocytes # (Manual) Monocytes # (Manual) Metamyelocytes # Myelocytes # Nucleated RBCs Toxic Vacuolation Platelet Estimate Plt Morphology Comment RBC Morphology Polychromasia Hypochromasia Microcytosis Spherocytes Target Cells Ovalocytes Schistocytes VBG pH VBG pCO2 VBG pO2 VBG HCO3 VBG O2 Saturation VBG Base Excess Anion Gap Estim Creat Clear Calc Estimated GFR POC Glucose 103 Random Glucose Lactic Acid Lactic Acid F/U @ 2Hr 2.5 H* Lactic Acid F/U @ 4Hr 2.6 H* Calcium Phosphorus Magnesium Total Bilirubin AST ALT Alkaline Phosphatase Troponin I High Sens Total Protein Albumin Salicylates Acetaminophen Hep Bs Antigen Hep Bs Antibody Hep B Core Total Ab 06/22/24 06/22/24 06/22/24 16:26 21:28 21:40 MCV 66.8 L MCH 21.9 L MCHC 32.8 RDW 24.8 H Plt Count 336 MPV 10.0 Immature Gran % (Auto) Cancelled Neut % (Auto) Cancelled Lymph % (Auto) Cancelled [place] % (Auto) Cancelled Eos % (Auto) Cancelled Baso % (Auto) Cancelled Lymph # (Auto) Cancelled [place] # (Auto) Cancelled Eos # (Auto) Cancelled Baso # (Auto) Cancelled Abs Immat Gran (auto) Cancelled Absolute Neuts (auto) Cancelled Absolute Nucleated RBC 0.510 H Nucleated RBC % (auto) 1.7 H Neutrophils % (Manual) 76 H Band Neutrophils % 1 L Lymphocytes % (Manual) 6 L Monocytes % (Manual) 12 H Metamyelocytes % 3 Myelocytes % 2 Abs Neuts (Manual) 23.4 H Lymphocytes # (Manual) 1.8 Monocytes # (Manual) 3.6 H Metamyelocytes # 0.9 Myelocytes # 0.6 Nucleated RBCs 6 H Toxic Vacuolation Platelet Estimate NORMAL Plt Morphology Comment NORMAL RBC Morphology NOTED Polychromasia Hypochromasia Microcytosis Spherocytes Target Cells Ovalocytes 1+ (5-14) Schistocytes VBG pH VBG pCO2 VBG pO2 VBG HCO3 VBG O2 Saturation VBG Base Excess Anion Gap 22 H Estim Creat Clear Calc 19.1 Estimated GFR 9 POC Glucose 111 115 Random Glucose 113 Lactic Acid Lactic Acid F/U @ 2Hr Lactic Acid F/U @ 4Hr Calcium 8.3 L Phosphorus 4.7 H Magnesium 2.0 Total Bilirubin AST ALT Alkaline Phosphatase Troponin I High Sens Total Protein Albumin 3.3 L Salicylates Acetaminophen Hep Bs Antigen Hep Bs Antibody Hep B Core Total Ab 06/22/24 06/22/24 06/23/24 21:45 21:58 03:54 MCV MCH MCHC RDW Plt Count MPV Immature Gran % (Auto) Neut % (Auto) Lymph % (Auto) [place] % (Auto) Eos % (Auto) Baso % (Auto) Lymph # (Auto) [place] # (Auto) Eos # (Auto) Baso # (Auto) Abs Immat Gran (auto) Absolute Neuts (auto) Absolute Nucleated RBC Nucleated RBC % (auto) Neutrophils % (Manual) Band Neutrophils % Lymphocytes % (Manual) Monocytes % (Manual) Metamyelocytes % Myelocytes % Abs Neuts (Manual) Lymphocytes # (Manual) Monocytes # (Manual) Metamyelocytes # Myelocytes # Nucleated RBCs Toxic Vacuolation Platelet Estimate Plt Morphology Comment RBC Morphology Polychromasia Hypochromasia Microcytosis Spherocytes Target Cells Ovalocytes Schistocytes VBG pH 7.34 7.35 VBG pCO2 45 36 VBG pO2 63 67 VBG HCO3 24 20 L VBG O2 Saturation 88.0 90.0 VBG Base Excess -0.9 -4.5 Anion Gap Estim Creat Clear Calc Estimated GFR POC Glucose 116 H Random Glucose Lactic Acid Lactic Acid F/U @ 2Hr Lactic Acid F/U @ 4Hr Calcium Phosphorus Magnesium Total Bilirubin AST ALT Alkaline Phosphatase Troponin I High Sens 972.3 H* Total Protein Albumin Salicylates Acetaminophen Hep Bs Antigen Hep Bs Antibody Hep B Core Total Ab 06/23/24 06/23/24 03:59 06:25 MCV 66.8 L MCH 22.0 L MCHC 32.9 RDW 24.4 H Plt Count 301 MPV 9.8 Immature Gran % (Auto) Cancelled Neut % (Auto) Cancelled Lymph % (Auto) Cancelled [place] % (Auto) Cancelled Eos % (Auto) Cancelled Baso % (Auto) Cancelled Lymph # (Auto) Cancelled [place] # (Auto) Cancelled Eos # (Auto) Cancelled Baso # (Auto) Cancelled Abs Immat Gran (auto) Cancelled Absolute Neuts (auto) Cancelled Absolute Nucleated RBC 0.350 H Nucleated RBC % (auto) 1.3 H Neutrophils % (Manual) 77 H Band Neutrophils % 5 Lymphocytes % (Manual) 6 L Monocytes % (Manual) 7 Metamyelocytes % 3 Myelocytes % 2 Abs Neuts (Manual) 22.4 H Lymphocytes # (Manual) 1.6 Monocytes # (Manual) 1.9 H Metamyelocytes # 0.8 Myelocytes # 0.5 Nucleated RBCs 3 H Toxic Vacuolation PRESENT Platelet Estimate NORMAL Plt Morphology Comment NORMAL RBC Morphology NOTED Polychromasia 1+ (0-2) Hypochromasia 1+ (5-14) Microcytosis 2+ (15-30) Spherocytes 1+ (0-2) Target Cells 2+ (15-30) Ovalocytes 1+ (5-14) Schistocytes 1+ (0-2) VBG pH VBG pCO2 VBG pO2 VBG HCO3 VBG O2 Saturation VBG Base Excess Anion Gap 25 H Estim Creat Clear Calc 17.3 Estimated GFR 8 POC Glucose Random Glucose 118 H Lactic Acid 3.8 H* Lactic Acid F/U @ 2Hr 4.0 H* Lactic Acid F/U @ 4Hr Calcium 8.3 L Phosphorus 4.9 H Magnesium 2.0 Total Bilirubin 5.0 H AST 215 H ALT 79 H Alkaline Phosphatase 240 H Troponin I High Sens Total Protein 6.7 Albumin 3.0 L Salicylates Acetaminophen Hep Bs Antigen Hep Bs Antibody Hep B Core Total Ab Procedures Date of Service Date of Service: 06/23/24 Progress Note: A&P Assessment and plan (1) Incisional hernia: Status: Acute (2) Abdominal pain: Status: Acute (3) Acidosis, lactic: Status: Acute Plan Patient with potential intestinal ischemia from large incisional hernia. Ideally a hernia of this time should be treated at a tertiary care center however attempt to transfer to her primary facility (site of previous surgeries and treatment at [facility]) have been unsuccessful. Agree with repeating CT abdomen and pelvis with contrast to better evaluate liver and bowel within the hernia. We will await CT findings and decide on further surgical management. Time Spent With Patient Time: Total time managing care of this patient today ____ minutes. Quality Stroke Does the patient have a stroke diagnosis?: No VTE Prior VTE?: No VTE Risk Level:: Medical - moderate - high VTE Device Contraindication: N/A - Device Ordered VTE Drug Contraindication: Treatment Not Indicated
[2024-06-23 08:19] LABS: Glucose, Whole Blood 111 mg/dL (60-115)
[2024-06-23 08:31] LABS: Reflex Lactate? 2 Y
[2024-06-23 10:26] LABS: ~Lactic Acid-LAB USE ONLY 3.8 mmol/L (0.5-2.0)
[2024-06-23 10:35] LABS: Troponin-I High Sensitivity 1189.6 ng/L (<3.5-17.0)
--- NOTE | 2024-06-23 10:52 | MHC.CLN ---
PT MAY REQUIRE TF FOR NUTRITION R/T PROLONGED NPO STATUS PT IS DAY 3 NPO DISCUSSED WITH MD -PLAN CT ABDOMEN TODAY AND LIKELY NGT WITH TF WHEN TF NEEDED;RECOMMEND GLUCERNA AT MAX GOAL RATE 55ML/HR WITH 240ML Q 8 HRS TO PROVIDE 1320KCALS (23KCALS/KG), 55G PROTEIN, 1846ML TOTAL WATER FROM FORMULA AND FLUSHES (32ML/KG BASED ON IBW) MONITOR TOLERANCE AND LYTES SEE ALSO FULL CLINICAL NUTRITION ASSESSMENT
--- NOTE | 2024-06-23 11:42 | PM.CCPN ---
Subjective Subjective Date of Service: 06/23/24 Interval History: 59-year-old lady with underlying history of colon cancer status post right colectomy 5 years prior, abdominal hernia, morbid obesity, diabetes mellitus admitted on 06/18/2024 with right upper quadrant pain and nausea. Her CT abdomen showed liver lesion concerning for malignant etiology and multiple abdominal hernia with concern for incarceration. Patient was empirically treated for UTI. Hospital course significant for deteriorating renal function with anuria, metabolic acidosis, and hypotension patient was started hemodialysis support and requiring pressor support. Patient was transferred to intensive care unit. Patient was evaluated by General surgery and concern was raised patient is not a surgical candidate at this institution. Transfer to [facility] for surgical evaluation was requested. Overnight with rising lactate and increasing pressor requirements. Critical Care Time (minutes): 60 Physical Exam Vital Signs: Vital Signs: Last Vital Signs Temp 98.1 F 06/23/24 08:00 Pulse 132 H 06/23/24 11:00 Resp 32 H 06/23/24 11:00 BP 100/58 L 06/23/24 11:00 Pulse Ox 94 06/23/24 11:00 O2 Del Method Nasal Cannula 06/23/24 11:00 O2 Flow Rate 2 06/23/24 11:00 BMI result Body Mass Index 58.7 Const: General: no acute distress and lethargic ([place]) Nutritional Appearance: obese Orientation/consciousness: lethargic ([place]) Eyes: Sclerae: sclerae normal EOM: EOMs intact bilaterally Neck: Neck: Yes no lymphadenopathy, Yes trachea midline and Yes supple Resp: Effort & Inspection: normal respiratory effort and no respiratory distress Auscultation: clear to auscultation bilaterally Cardio: Rate: tachycardic Rhythm: regular rhythm Heart sounds: no gallops, no murmurs and no rubs GI: Palpation (GI): Soft to palpation and Other GI palpation findings present ( Nontender) Auscultation: Hypoactive bowel sounds present Extrem: General: No clubbing, No cyanosis and Yes edema (1+ bilateral) Objective Data Labs 06/23/24 03:59 06/23/24 03:59 Labs: Laboratory Results - last 24 hr 06/22/24 06/22/24 06/22/24 11:56 14:25 16:26 WBC RBC Hgb Hct MCV MCH MCHC RDW Plt Count MPV Immature Gran % (Auto) Neut % (Auto) Lymph % (Auto) [place] % (Auto) Eos % (Auto) Baso % (Auto) Lymph # (Auto) [place] # (Auto) Eos # (Auto) Baso # (Auto) Abs Immat Gran (auto) Absolute Neuts (auto) Absolute Nucleated RBC Nucleated RBC % (auto) Neutrophils % (Manual) Band Neutrophils % Lymphocytes % (Manual) Monocytes % (Manual) Metamyelocytes % Myelocytes % Abs Neuts (Manual) Lymphocytes # (Manual) Monocytes # (Manual) Metamyelocytes # Myelocytes # Nucleated RBCs Toxic Vacuolation Platelet Estimate Plt Morphology Comment RBC Morphology Polychromasia Hypochromasia Microcytosis Spherocytes Target Cells Ovalocytes Schistocytes VBG pH VBG pCO2 VBG pO2 VBG HCO3 VBG O2 Saturation VBG Base Excess Sodium Potassium Chloride Carbon Dioxide Anion Gap BUN Creatinine Estim Creat Clear Calc Estimated GFR POC Glucose 111 Random Glucose Lactic Acid Lactic Acid F/U @ 2Hr 2.5 H* Lactic Acid F/U @ 4Hr 2.6 H* Calcium Phosphorus Magnesium Total Bilirubin AST ALT Alkaline Phosphatase Troponin I High Sens Total Protein Albumin 06/22/24 06/22/24 06/22/24 21:28 21:40 21:45 WBC 30.4 H* RBC 3.61 L Hgb 7.9 L Hct 24.1 L MCV 66.8 L MCH 21.9 L MCHC 32.8 RDW 24.8 H Plt Count 336 MPV 10.0 Immature Gran % (Auto) Cancelled Neut % (Auto) Cancelled Lymph % (Auto) Cancelled [place] % (Auto) Cancelled Eos % (Auto) Cancelled Baso % (Auto) Cancelled Lymph # (Auto) Cancelled [place] # (Auto) Cancelled Eos # (Auto) Cancelled Baso # (Auto) Cancelled Abs Immat Gran (auto) Cancelled Absolute Neuts (auto) Cancelled Absolute Nucleated RBC 0.510 H Nucleated RBC % (auto) 1.7 H Neutrophils % (Manual) 76 H Band Neutrophils % 1 L Lymphocytes % (Manual) 6 L Monocytes % (Manual) 12 H Metamyelocytes % 3 Myelocytes % 2 Abs Neuts (Manual) 23.4 H Lymphocytes # (Manual) 1.8 Monocytes # (Manual) 3.6 H Metamyelocytes # 0.9 Myelocytes # 0.6 Nucleated RBCs 6 H Toxic Vacuolation Platelet Estimate NORMAL Plt Morphology Comment NORMAL RBC Morphology NOTED Polychromasia Hypochromasia Microcytosis Spherocytes Target Cells Ovalocytes 1+ (5-14) Schistocytes VBG pH 7.34 VBG pCO2 45 VBG pO2 63 VBG HCO3 24 VBG O2 Saturation 88.0 VBG Base Excess -0.9 Sodium 135 Potassium 4.4 Chloride 98 Carbon Dioxide 19 L Anion Gap 22 H BUN 45 H Creatinine 4.78 H* Estim Creat Clear Calc 19.1 Estimated GFR 9 POC Glucose 115 Random Glucose 113 Lactic Acid Lactic Acid F/U @ 2Hr Lactic Acid F/U @ 4Hr Calcium 8.3 L Phosphorus 4.7 H Magnesium 2.0 Total Bilirubin AST ALT Alkaline Phosphatase Troponin I High Sens Total Protein Albumin 3.3 L 06/22/24 06/23/24 06/23/24 21:58 03:54 03:59 WBC 27.3 H RBC 3.55 L Hgb 7.8 L Hct 23.7 L MCV 66.8 L MCH 22.0 L MCHC 32.9 RDW 24.4 H Plt Count 301 MPV 9.8 Immature Gran % (Auto) Cancelled Neut % (Auto) Cancelled Lymph % (Auto) Cancelled [place] % (Auto) Cancelled Eos % (Auto) Cancelled Baso % (Auto) Cancelled Lymph # (Auto) Cancelled [place] # (Auto) Cancelled Eos # (Auto) Cancelled Baso # (Auto) Cancelled Abs Immat Gran (auto) Cancelled Absolute Neuts (auto) Cancelled Absolute Nucleated RBC 0.350 H Nucleated RBC % (auto) 1.3 H Neutrophils % (Manual) 77 H Band Neutrophils % 5 Lymphocytes % (Manual) 6 L Monocytes % (Manual) 7 Metamyelocytes % 3 Myelocytes % 2 Abs Neuts (Manual) 22.4 H Lymphocytes # (Manual) 1.6 Monocytes # (Manual) 1.9 H Metamyelocytes # 0.8 Myelocytes # 0.5 Nucleated RBCs 3 H Toxic Vacuolation PRESENT Platelet Estimate NORMAL Plt Morphology Comment NORMAL RBC Morphology NOTED Polychromasia 1+ (0-2) Hypochromasia 1+ (5-14) Microcytosis 2+ (15-30) Spherocytes 1+ (0-2) Target Cells 2+ (15-30) Ovalocytes 1+ (5-14) Schistocytes 1+ (0-2) VBG pH 7.35 VBG pCO2 36 VBG pO2 67 VBG HCO3 20 L VBG O2 Saturation 90.0 VBG Base Excess -4.5 Sodium 136 Potassium 4.5 Chloride 98 Carbon Dioxide 18 L Anion Gap 25 H BUN 52 H Creatinine 5.29 H* Estim Creat Clear Calc 17.3 Estimated GFR 8 POC Glucose 116 H Random Glucose 118 H Lactic Acid 3.8 H* Lactic Acid F/U @ 2Hr Lactic Acid F/U @ 4Hr Calcium 8.3 L Phosphorus 4.9 H Magnesium 2.0 Total Bilirubin 5.0 H AST 215 H ALT 79 H Alkaline Phosphatase 240 H Troponin I High Sens 972.3 H* Total Protein 6.7 Albumin 3.0 L 06/23/24 06/23/24 06/23/24 06:25 08:15 09:54 WBC RBC Hgb Hct MCV MCH MCHC RDW Plt Count MPV Immature Gran % (Auto) Neut % (Auto) Lymph % (Auto) [place] % (Auto) Eos % (Auto) Baso % (Auto) Lymph # (Auto) [place] # (Auto) Eos # (Auto) Baso # (Auto) Abs Immat Gran (auto) Absolute Neuts (auto) Absolute Nucleated RBC Nucleated RBC % (auto) Neutrophils % (Manual) Band Neutrophils % Lymphocytes % (Manual) Monocytes % (Manual) Metamyelocytes % Myelocytes % Abs Neuts (Manual) Lymphocytes # (Manual) Monocytes # (Manual) Metamyelocytes # Myelocytes # Nucleated RBCs Toxic Vacuolation Platelet Estimate Plt Morphology Comment RBC Morphology Polychromasia Hypochromasia Microcytosis Spherocytes Target Cells Ovalocytes Schistocytes VBG pH VBG pCO2 VBG pO2 VBG HCO3 VBG O2 Saturation VBG Base Excess Sodium Potassium Chloride Carbon Dioxide Anion Gap BUN Creatinine Estim Creat Clear Calc Estimated GFR POC Glucose 111 Random Glucose Lactic Acid Lactic Acid F/U @ 2Hr 4.0 H* Lactic Acid F/U @ 4Hr 3.8 H* Calcium Phosphorus Magnesium Total Bilirubin AST ALT Alkaline Phosphatase Troponin I High Sens 1189.6 H* Total Protein Albumin Microbiology Microbiology Results: Microbiology 06/18/24 15:26 Blood - Venous Blood Culture - Preliminary No growth after 48 hours. 06/18/24 15:26 Blood - Venous Blood Culture - Preliminary No growth after 48 hours. 06/18/24 20:10 Urine clean catch - Clean Catch Midstream Urine Culture - Final Progress Note: A&P Assessment and plan (1) Acidosis, lactic: Status: Acute (2) JAYSON (acute kidney injury): Status: Acute (3) Incisional hernia: Status: Acute (4) Liver masses: Status: Acute (5) Morbid obesity: Status: Acute (6) Shock: Status: Acute Plan Assessment: 59-year-old lady with prior history of colon cancer status post right colectomy admitted with abdominal pain and noted to have liver lesions and multiple hernias with concerns incarceration, hospital course further complicated by acute renal failure requiring dialysis support Plan: Neuro: Metabolic encephalopathy, improving with dialysis. Cardiac: Shock, continue to titrate off pressor support as tolerated. Pulmonary: No acute issues. Renal: Acute renal failure requiring hemodialysis support. Nephrology service care appreciated. Endo: No acute issues. GI: Liver lesions, will require IR biopsy as her condition improves. Concern for incarcerated hernia and early ischemic. General surgery service care appreciated. Not a surgical candidate at this facility. Request for transfer to [facility] placed. Will repeat CT abdomen to assess for changes. ID: Cultures negative to date, continue empiric antibiotics. Heme/Onc: No acute issues. Psych: No acute issues. Miscellaneous: No acute issues. Prophylaxis: Heparin Diet: NPO Critical care time spent: 60 minute Quality Stroke Does the patient have a stroke diagnosis?: No VTE Prior VTE?: No VTE Risk Level:: Medical - moderate - high VTE Device Contraindication: N/A - Device Ordered VTE Drug Contraindication: Treatment Not Indicated
[2024-06-23 11:48] LABS: Glucose, Whole Blood 103 mg/dL (60-115)
[2024-06-23] MEDS: Norepinephrine Bitartrate/D5W 8 MG/250 ML PLAST..BAG 21.01 MG IVCONT (12:22)
--- NOTE | 2024-06-23 12:59 | MHC.CM.PN ---
Pt continues on pressor support and is awaiting transfer to [facility] for surgical intervention ? possible incarcerated hernia in a complex pt. HD session today with goal of 3 L fluid removal. CM to follow
--- NOTE | 2024-06-23 13:05 | P.CDIM_ITS ---
PROVIDER RESPONSE TEXT: To clarify, the appropriate diagnosis supported by the clinical indicators: Shock, unknown type QUERY TEXT: PHYSICIAN'S DOCUMENTATION REQUEST Date of Query: 06/23/2024 06:24 AM EST Patient Name: Luisa Nuñez Admit Date: 06/19/2024 Dear Jake Briggs MD, A review of the medical record indicates additional documentation may be needed. Please review below and update the documentation accordingly. Clinical Indicators: ICU admit secondary to hypotension and lethargy. Shock, continue to titrate off pressor support. ICU Progress note dated 06/21 - Admitted with abdominal pain and Sepsis d/t UTI. She became quite lethargic and hypotensive. SBP 80's, HR 80's. Please clarify which of the following is the most likely etiology of the documented Shock: Septic shock Cardiogenic shock Shock, unknown type Other Other (explain) Clinically unable to determine (explain) Thank you, Rhiannon Escobar, CCS, CDIS Use of terms such as suspected, likely, concern for, or probable (associated with a specific diagnosi s that is being evaluated, monitored, or treated as if it exists) are acceptable and can be coded in the inpatient se tting, when documented at the time of discharge. Please use your independent medical judgment in providing your response. THIS QUERY IS PART OF THE PERMANENT MEDICAL RECORD
[2024-06-23] MEDS: iohexoL 350 MG/ML 75 ML INFUS..BTL 85 ML IV (14:41)
[2024-06-23 16:38] LABS: Myeloperoxidase Antibody <1.0 AI; Proteinase 3 PR3 Antibodies <1.0 AI
[2024-06-23] MEDS: 0.9 % Sodium Chloride Flush 3 ML SYRINGE IVFLUSH ×2 (16:54→23:05)
[2024-06-23] MEDS: Acetaminophen 1,000 MG/100 ML PIGGYBACK 400 MG IV (16:59)
[2024-06-23 17:42] LABS: Glucose, Whole Blood 97 mg/dL (60-115)
[2024-06-23] MEDS: Amiodarone HCL 900 MG in 0.9 % Sodium Chloride 500 ML 17.27 MG IVCONT (18:01)
--- NOTE | 2024-06-23 18:50 | P.PNNP_ITS ---
Subjective Subjective Date of Service: 06/23/24 Interval history: Overnight with rising lactate and increasing pressor requirements. Seen on HD this morning. D/W ICU Attending and HD RN Physical Exam 2 Vital Signs: Vital Signs: Last Vital Signs Temp 98.8 F 06/23/24 16:00 Pulse 83 06/23/24 18:29 Resp 23 H 06/23/24 18:00 BP 108/41 L 06/23/24 18:29 Pulse Ox 88 L 06/23/24 18:00 O2 Del Method Nasal Cannula 06/23/24 18:00 O2 Flow Rate 2 06/23/24 18:00 BMI result Body Mass Index 58.7 Const: General: no acute distress Neck: Neck: Yes supple Resp: Auscultation: diminished lung sounds Cardio: Rate: regular rate GI: Palpation (GI): Soft to palpation Skin: General skin exam: no rashes or lesions noted Extrem: General: Yes no pedal edema Objective Data Labs 06/23/24 03:59 06/23/24 03:59 Labs: Laboratory Results - last 24 hr 06/20/24 06/22/24 06/22/24 05:19 21:28 21:40 WBC 30.4 H* RBC 3.61 L Hgb 7.9 L Hct 24.1 L MCV 66.8 L MCH 21.9 L MCHC 32.8 RDW 24.8 H Plt Count 336 MPV 10.0 Immature Gran % (Auto) Cancelled Neut % (Auto) Cancelled Lymph % (Auto) Cancelled [place] % (Auto) Cancelled Eos % (Auto) Cancelled Baso % (Auto) Cancelled Lymph # (Auto) Cancelled [place] # (Auto) Cancelled Eos # (Auto) Cancelled Baso # (Auto) Cancelled Abs Immat Gran (auto) Cancelled Absolute Neuts (auto) Cancelled Absolute Nucleated RBC 0.510 H Nucleated RBC % (auto) 1.7 H Neutrophils % (Manual) 76 H Band Neutrophils % 1 L Lymphocytes % (Manual) 6 L Monocytes % (Manual) 12 H Metamyelocytes % 3 Myelocytes % 2 Abs Neuts (Manual) 23.4 H Lymphocytes # (Manual) 1.8 Monocytes # (Manual) 3.6 H Metamyelocytes # 0.9 Myelocytes # 0.6 Nucleated RBCs 6 H Toxic Vacuolation Platelet Estimate NORMAL Plt Morphology Comment NORMAL RBC Morphology NOTED Polychromasia Hypochromasia Microcytosis Spherocytes Target Cells Ovalocytes 1+ (5-14) Schistocytes VBG pH VBG pCO2 VBG pO2 VBG HCO3 VBG O2 Saturation VBG Base Excess Sodium 135 Potassium 4.4 Chloride 98 Carbon Dioxide 19 L Anion Gap 22 H BUN 45 H Creatinine 4.78 H* Estim Creat Clear Calc 19.1 Estimated GFR 9 POC Glucose 115 Random Glucose 113 Lactic Acid Lactic Acid F/U @ 2Hr Lactic Acid F/U @ 4Hr Calcium 8.3 L Phosphorus 4.7 H Magnesium 2.0 Total Bilirubin AST ALT Alkaline Phosphatase Troponin I High Sens Total Protein Albumin 3.3 L Proteinase 3 (PR3) Ab <1.0 Myeloperoxidase Ab <1.0 06/22/24 06/22/24 06/23/24 21:45 21:58 03:54 WBC RBC Hgb Hct MCV MCH MCHC RDW Plt Count MPV Immature Gran % (Auto) Neut % (Auto) Lymph % (Auto) [place] % (Auto) Eos % (Auto) Baso % (Auto) Lymph # (Auto) [place] # (Auto) Eos # (Auto) Baso # (Auto) Abs Immat Gran (auto) Absolute Neuts (auto) Absolute Nucleated RBC Nucleated RBC % (auto) Neutrophils % (Manual) Band Neutrophils % Lymphocytes % (Manual) Monocytes % (Manual) Metamyelocytes % Myelocytes % Abs Neuts (Manual) Lymphocytes # (Manual) Monocytes # (Manual) Metamyelocytes # Myelocytes # Nucleated RBCs Toxic Vacuolation Platelet Estimate Plt Morphology Comment RBC Morphology Polychromasia Hypochromasia Microcytosis Spherocytes Target Cells Ovalocytes Schistocytes VBG pH 7.34 7.35 VBG pCO2 45 36 VBG pO2 63 67 VBG HCO3 24 20 L VBG O2 Saturation 88.0 90.0 VBG Base Excess -0.9 -4.5 Sodium Potassium Chloride Carbon Dioxide Anion Gap BUN Creatinine Estim Creat Clear Calc Estimated GFR POC Glucose 116 H Random Glucose Lactic Acid Lactic Acid F/U @ 2Hr Lactic Acid F/U @ 4Hr Calcium Phosphorus Magnesium Total Bilirubin AST ALT Alkaline Phosphatase Troponin I High Sens 972.3 H* Total Protein Albumin Proteinase 3 (PR3) Ab Myeloperoxidase Ab 06/23/24 06/23/24 06/23/24 03:59 06:25 08:15 WBC 27.3 H RBC 3.55 L Hgb 7.8 L Hct 23.7 L MCV 66.8 L MCH 22.0 L MCHC 32.9 RDW 24.4 H Plt Count 301 MPV 9.8 Immature Gran % (Auto) Cancelled Neut % (Auto) Cancelled Lymph % (Auto) Cancelled [place] % (Auto) Cancelled Eos % (Auto) Cancelled Baso % (Auto) Cancelled Lymph # (Auto) Cancelled [place] # (Auto) Cancelled Eos # (Auto) Cancelled Baso # (Auto) Cancelled Abs Immat Gran (auto) Cancelled Absolute Neuts (auto) Cancelled Absolute Nucleated RBC 0.350 H Nucleated RBC % (auto) 1.3 H Neutrophils % (Manual) 77 H Band Neutrophils % 5 Lymphocytes % (Manual) 6 L Monocytes % (Manual) 7 Metamyelocytes % 3 Myelocytes % 2 Abs Neuts (Manual) 22.4 H Lymphocytes # (Manual) 1.6 Monocytes # (Manual) 1.9 H Metamyelocytes # 0.8 Myelocytes # 0.5 Nucleated RBCs 3 H Toxic Vacuolation PRESENT Platelet Estimate NORMAL Plt Morphology Comment NORMAL RBC Morphology NOTED Polychromasia 1+ (0-2) Hypochromasia 1+ (5-14) Microcytosis 2+ (15-30) Spherocytes 1+ (0-2) Target Cells 2+ (15-30) Ovalocytes 1+ (5-14) Schistocytes 1+ (0-2) VBG pH VBG pCO2 VBG pO2 VBG HCO3 VBG O2 Saturation VBG Base Excess Sodium 136 Potassium 4.5 Chloride 98 Carbon Dioxide 18 L Anion Gap 25 H BUN 52 H Creatinine 5.29 H* Estim Creat Clear Calc 17.3 Estimated GFR 8 POC Glucose 111 Random Glucose 118 H Lactic Acid 3.8 H* Lactic Acid F/U @ 2Hr 4.0 H* Lactic Acid F/U @ 4Hr Calcium 8.3 L Phosphorus 4.9 H Magnesium 2.0 Total Bilirubin 5.0 H AST 215 H ALT 79 H Alkaline Phosphatase 240 H Troponin I High Sens Total Protein 6.7 Albumin 3.0 L Proteinase 3 (PR3) Ab Myeloperoxidase Ab 06/23/24 06/23/24 06/23/24 09:54 11:39 17:36 WBC RBC Hgb Hct MCV MCH MCHC RDW Plt Count MPV Immature Gran % (Auto) Neut % (Auto) Lymph % (Auto) [place] % (Auto) Eos % (Auto) Baso % (Auto) Lymph # (Auto) [place] # (Auto) Eos # (Auto) Baso # (Auto) Abs Immat Gran (auto) Absolute Neuts (auto) Absolute Nucleated RBC Nucleated RBC % (auto) Neutrophils % (Manual) Band Neutrophils % Lymphocytes % (Manual) Monocytes % (Manual) Metamyelocytes % Myelocytes % Abs Neuts (Manual) Lymphocytes # (Manual) Monocytes # (Manual) Metamyelocytes # Myelocytes # Nucleated RBCs Toxic Vacuolation Platelet Estimate Plt Morphology Comment RBC Morphology Polychromasia Hypochromasia Microcytosis Spherocytes Target Cells Ovalocytes Schistocytes VBG pH VBG pCO2 VBG pO2 VBG HCO3 VBG O2 Saturation VBG Base Excess Sodium Potassium Chloride Carbon Dioxide Anion Gap BUN Creatinine Estim Creat Clear Calc Estimated GFR POC Glucose 103 97 Random Glucose Lactic Acid Lactic Acid F/U @ 2Hr Lactic Acid F/U @ 4Hr 3.8 H* Calcium Phosphorus Magnesium Total Bilirubin AST ALT Alkaline Phosphatase Troponin I High Sens 1189.6 H* Total Protein Albumin Proteinase 3 (PR3) Ab Myeloperoxidase Ab Microbiology Microbiology Results: Microbiology 06/18/24 15:26 Blood - Venous Blood Culture - Final No growth after 5 days. 06/18/24 15:26 Blood - Venous Blood Culture - Final No growth after 5 days. 06/18/24 20:10 Urine clean catch - Clean Catch Midstream Urine Culture - Final Procedures Date of Service Date of Service: 06/23/24 Assessment & Plan Assessment and plan (1) JAYSON (acute kidney injury): Status: Acute Plan JAYSON likely due to ATN ( DDx- direct infiltration of B cells into kidney versus tumor lysis( unlikely) Work up in progress; S/P HD catheter ; Had HD for 2 days; Seen on HD ; Due tomorrow Needs liver lesions biopsied ; Likely will need renal biopsy as well when stable cortisol level reviewed given hypotension and hyperkalemia; Surgical F/U ECHO to look @ LV/RV ; C/W rest of current supportive care for now Progress Note: Quality Stroke Does the patient have a stroke diagnosis?: No
[2024-06-23] MEDS: Norepinephrine Bitartrate/D5W 8 MG/250 ML PLAST..BAG 39.02 MG IVCONT (20:14)
[2024-06-23] MEDS: bisacodyL 10 MG SUPP.RECT PR (21:13)
[2024-06-23 21:18] LABS: Hematocrit 23.9 % (37.0-47.0); Hemoglobin 7.8 g/dl (12.0-16.0); Mean Corpuscular HGB Conc 32.6 g/dl (31.0-35.0); Mean Corpuscular Volume 67.5 fL (80.0-98.0); NRBC Pct Auto 1.9 /100WBC (0.0-0.2); Platelet Count 331 X10*3/uL (160-400); Red Blood Count 3.54 X10*6/uL (4.20-5.50); Red Cell Distribution Width 25.2 % (11.0-16.0); WBC ABN SCTR FOR CBC 1
[2024-06-23 21:34] LABS: Anion Gap 29 (12-20); Blood Urea Nitrogen 37 mg/dL (9-16); Calcium 8.6 mg/dL (8.4-10.2); Carbon Dioxide 17 mmol/L (22-29); Chloride 96 mmol/L (96-108); Creatinine Clr Calc Pharmacy 21.4; Estimated Glomerular Filt Rate 11; Glucose Random 91 mg/dL (60-115); Magnesium 2.2 mg/dL (1.6-2.6); Phosphorus 5.1 mg/dL (2.7-4.5); Potassium 4.5 mmol/L (3.3-5.1); Sodium 137 mmol/L (135-145)
[2024-06-23 21:40] LABS: Band Neutrophils Percent 7 % (3-5); Lymphocytes Absolute Manual 3.6 X10*3/uL (1.2-4.9); Lymphocytes Percent Manual 10 % (20-40); Metamyelocytes Absolute 1.1 X10*3/uL; Metamyelocytes Percent 3 %; Monocytes Absolute Manual 2.5 X10*3/uL (0.1-1.2); Monocytes Percent Manual 7 % (2-11); Neutrophils Absolute Manual 28.8 X10*3/uL (2.0-8.3); Neutrophils Percent Manual 73 % (45-73); Nucleated Red Blood Cells 3 /100WBC (0-0); RBC Morphology NOTED
[2024-06-23 21:40] LABS: VBG Base Excess -7.1 mmol/L; VBG HCO3 19 mmol/L (22-26); VBG pCO2 39 mmHg; VBG pH 7.28 (7.32-7.43); VBG pO2 65 mmHg
[2024-06-23 21:41] LABS: Basophilic Stippling 1+ (0-2) /OIF; Target Cells 1+ (5-14) /OIF; Venous Blood Gas Refer to POC result
[2024-06-23 21:42] LABS: Macrocytosis 1+ (5-14) /OIF
[2024-06-23 21:43] LABS: Acanthocytes 1+ (0-2) /OIF; Platelet Estimate NORMAL (NORMAL); Platelet Morphology Comment NORMAL
[2024-06-23] MEDS: Sodium Bicarbonate 8.4% 50 MEQ/50 ML SYRINGE IVPUSH (21:52)
[2024-06-23] MEDS: Sodium Bicarbonate 8.4% 150 MEQ in Dextrose 5 % 850 ML 100 MEQ IV (22:24)
[2024-06-23 23:44] LABS: Glucose, Whole Blood 107 mg/dL (60-115)
[2024-06-24] VITALS (45 sets, daily range): BP systolic 94–142; BP diastolic 41–89; PULSE 86–173; RESP 14–49; TEMP 35–39.2; O2SAT 84–99
[2024-06-24] MEDS: Norepinephrine Bitartrate/D5W 8 MG/250 ML PLAST..BAG 45.03 MG IVCONT (02:05)
[2024-06-24] MEDS: metroNIDAZOLE/NS 500 MG/100 ML PIGGYBACK 100 MG IV ×3 (03:31→18:21)
[2024-06-24] MEDS: Albuterol/Iprat 2.5/0.5MG 3 ML AMPUL.NEB INHALE (04:41)
[2024-06-24 04:50] LABS: VBG Base Excess -3.6 mmol/L; VBG HCO3 21 mmol/L (22-26); VBG pCO2 40 mmHg; VBG pH 7.33 (7.32-7.43); VBG pO2 61 mmHg
[2024-06-24 05:29] LABS: Hematocrit 23.8 % (37.0-47.0); Hemoglobin 7.5 g/dl (12.0-16.0); Mean Corpuscular HGB Conc 31.5 g/dl (31.0-35.0); Mean Corpuscular Hemoglobin 21.8 pg (27.0-33.0); Mean Corpuscular Volume 69.2 fL (80.0-98.0); Mean Platelet Volume 10.6 fL (9.4-12.3); Platelet Count 314 X10*3/uL (160-400); Red Blood Count 3.44 X10*6/uL (4.20-5.50); Red Cell Distribution Width 25.2 % (11.0-16.0)
[2024-06-24 05:33] LABS: WBC ABN SCTR FOR CBC 1
[2024-06-24 05:35] LABS: White Blood Count 36.3 X10*3/uL (4.8-10.8)
[2024-06-24 05:46] LABS: Alanine Aminotransferase 84 U/L (0-31); Albumin Level 3.4 g/dL (3.5-5.0); Alkaline Phosphatase 207 U/L (39-117); Anion Gap 27 (12-20); Aspartate Amino Transferase 283 U/L (5-31); Bilirubin Total 6.7 mg/dL (0.0-1.0); Blood Urea Nitrogen 41 mg/dL (9-16); Calcium 8.4 mg/dL (8.4-10.2); Carbon Dioxide 19 mmol/L (22-29); Chloride 96 mmol/L (96-108); Creatinine Clr Calc Pharmacy 20.9; Estimated Glomerular Filt Rate 10; Glucose Random 127 mg/dL (60-115); Magnesium 2.1 mg/dL (1.6-2.6); Phosphorus 5.3 mg/dL (2.7-4.5); Potassium 4.4 mmol/L (3.3-5.1); Sodium 138 mmol/L (135-145); Total Protein 6.9 g/dL (6.5-8.0)
[2024-06-24 05:51] LABS: Band Neutrophils Percent 5 % (3-5); Lymphocytes Absolute Manual 2.5 X10*3/uL (1.2-4.9); Lymphocytes Percent Manual 7 % (20-40); Metamyelocytes Absolute 1.5 X10*3/uL; Metamyelocytes Percent 4 %; Monocytes Percent Manual 11 % (2-11); Neutrophils Absolute Manual 27.6 X10*3/uL (2.0-8.3); Neutrophils Percent Manual 71 % (45-73)
[2024-06-24 05:52] LABS: Blastocytes Absolute 0.4 X10*3/uL; Myelocytes Absolute 0.7 X10*/uL; Myelocytes Percent 2 %; Nucleated Red Blood Cells 3 /100WBC (0-0)
[2024-06-24 05:53] LABS: Hypochromasia 1+ (5-14) /OIF; Macrocytosis 1+ (5-14) /OIF; Ovalocytes 1+ (5-14) /OIF; Target Cells 1+ (5-14) /OIF
[2024-06-24 05:55] LABS: Basophilic Stippling 1+ (0-2) /OIF; Polychromasia 2+ (3-5) /OIF
[2024-06-24 05:56] LABS: Platelet Estimate NORMAL (NORMAL); Platelet Morphology Comment NORMAL; RBC Morphology NOTED
[2024-06-24 05:57] LABS: Schistocytes 1+ (0-2) /OIF
[2024-06-24] MEDS: Heparin Sodium,Porcine 5,000 UNIT/ML VIAL 5000 UNIT SUBCUT ×3 (06:10→22:44)
[2024-06-24] MEDS: Levothyroxine Sodium 100 MCG/5 ML VIAL 300 MCG IVPUSH (06:11)
[2024-06-24] MEDS: Norepinephrine Bitartrate/D5W 8 MG/250 ML PLAST..BAG 51.03 MG IVCONT (06:20)
[2024-06-24] MEDS: 0.9 % Sodium Chloride Flush 3 ML SYRINGE IVFLUSH ×2 (08:57→15:48)
[2024-06-24] MEDS: Sodium Bicarbonate 8.4% 150 MEQ in Dextrose 5 % 850 ML 100 MEQ IV ×2 (09:14→18:20)
[2024-06-24] MEDS: levoFLOXacin/D5W 500 MG/100 ML PIGGYBACK 100 MG IV (10:15)
[2024-06-24] MEDS: Norepinephrine Bitartrate/D5W 8 MG/250 ML PLAST..BAG 63.04 MG IVCONT (10:25)
[2024-06-24 11:32] LABS: Venous Blood Gas Refer to POC result
[2024-06-24 11:34] LABS: Glucose, Whole Blood 125 mg/dL (60-115)
--- NOTE | 2024-06-24 12:40 | P.PNCC_ITS ---
Subjective Subjective Date of Service: 06/24/24 Interval History: 59-year-old lady with underlying history of colon cancer status post right colectomy 5 years prior, abdominal hernia, morbid obesity, diabetes mellitus admitted on 06/18/2024 with right upper quadrant pain and nausea. Her CT abdomen showed liver lesion concerning for malignant etiology and multiple abdominal hernia with concern for incarceration. Patient was empirically treated for UTI. Hospital course significant for deteriorating renal function with anuria, metabolic acidosis, and hypotension patient was started hemodialysis support and requiring pressor support. Patient was transferred to intensive care unit. Patient was evaluated by General surgery and concern was raised patient is not a surgical candidate at this institution. Transfer to [facility] for surgical evaluation was requested. Leukocytosis and pressor requirements continue to increase. Cultures negative to date. Critical Care Time (minutes): 60 Physical Exam 2 Vital Signs: Vital Signs: Last Vital Signs Temp 100.4 F 06/24/24 08:00 Pulse 157 H 06/24/24 11:00 Resp 31 H 06/24/24 11:00 BP 113/65 06/24/24 11:00 Pulse Ox 94 06/24/24 11:00 O2 Del Method Oxymask 06/24/24 11:00 O2 Flow Rate 4 06/24/24 11:00 BMI result Body Mass Index 58.7 Const: General: no acute distress and lethargic Orientation/consciousness: lethargic Eyes: Sclerae: sclerae normal EOM: EOMs intact bilaterally Neck: Neck: Yes no lymphadenopathy, Yes trachea midline and Yes supple Resp: Effort & Inspection: normal respiratory effort and no respiratory distress Auscultation: clear to auscultation bilaterally Cardio: Rate: tachycardic Rhythm: abnormal rhythm irregularly irregular Heart sounds: no gallops, no murmurs and no rubs GI: Inspection: Yes Abdominal panniculus present Palpation (GI): Soft to palpation, nontender, not rigid and Other GI palpation findings present A uscultation: Hypoactive bowel sounds present Extrem: General: Yes no pedal edema, No clubbing and No cyanosis Objective Data Labs 06/24/24 04:38 06/24/24 04:38 Labs: Laboratory Results - last 24 hr 06/20/24 06/23/24 06/23/24 05:19 17:36 21:10 WBC 36.0 H* RBC 3.54 L Hgb 7.8 L Hct 23.9 L MCV 67.5 L MCH 22.0 L MCHC 32.6 RDW 25.2 H Plt Count 331 MPV 10.0 Immature Gran % (Auto) Cancelled Neut % (Auto) Cancelled Lymph % (Auto) Cancelled [place] % (Auto) Cancelled Eos % (Auto) Cancelled Baso % (Auto) Cancelled Lymph # (Auto) Cancelled [place] # (Auto) Cancelled Eos # (Auto) Cancelled Baso # (Auto) Cancelled Abs Immat Gran (auto) Cancelled Absolute Neuts (auto) Cancelled Absolute Nucleated RBC 0.700 H Nucleated RBC % (auto) 1.9 H Neutrophils % (Manual) 73 Band Neutrophils % 7 H Lymphocytes % (Manual) 10 L Monocytes % (Manual) 7 Metamyelocytes % 3 Myelocytes % Abs Neuts (Manual) 28.8 H Lymphocytes # (Manual) 3.6 Monocytes # (Manual) 2.5 H Metamyelocytes # 1.1 Myelocytes # Blast Cells # Nucleated RBCs 3 H Platelet Estimate NORMAL Plt Morphology Comment NORMAL RBC Morphology NOTED Polychromasia Hypochromasia Basophilic Stippling 1+ (0-2) Macrocytosis 1+ (5-14) Sickle Cells Not Reportable Target Cells 1+ (5-14) Ovalocytes Acanthocytes (Spur) 1+ (0-2) Schistocytes VBG pH VBG pCO2 VBG pO2 VBG HCO3 VBG O2 Saturation VBG Base Excess Sodium 137 Potassium 4.5 Chloride 96 Carbon Dioxide 17 L Anion Gap 29 H BUN 37 H Creatinine 4.27 H* Estim Creat Clear Calc 21.4 Estimated GFR 11 POC Glucose 97 Random Glucose 91 Calcium 8.6 Phosphorus 5.1 H Magnesium 2.2 Total Bilirubin AST ALT Alkaline Phosphatase Total Protein Albumin Proteinase 3 (PR3) Ab <1.0 Myeloperoxidase Ab <1.0 06/23/24 06/23/24 06/24/24 21:15 23:33 04:38 WBC 36.3 H* RBC 3.44 L Hgb 7.5 L Hct 23.8 L MCV 69.2 L MCH 21.8 L MCHC 31.5 RDW 25.2 H Plt Count 314 MPV 10.6 Immature Gran % (Auto) Cancelled Neut % (Auto) Cancelled Lymph % (Auto) Cancelled [place] % (Auto) Cancelled Eos % (Auto) Cancelled Baso % (Auto) Cancelled Lymph # (Auto) Cancelled [place] # (Auto) Cancelled Eos # (Auto) Cancelled Baso # (Auto) Cancelled Abs Immat Gran (auto) Cancelled Absolute Neuts (auto) Cancelled Absolute Nucleated RBC 0.720 H Nucleated RBC % (auto) 2.0 H Neutrophils % (Manual) 71 Band Neutrophils % 5 Lymphocytes % (Manual) 7 L Monocytes % (Manual) 11 Metamyelocytes % 4 Myelocytes % 2 Abs Neuts (Manual) 27.6 H Lymphocytes # (Manual) 2.5 Monocytes # (Manual) 4.0 H Metamyelocytes # 1.5 Myelocytes # 0.7 Blast Cells # 0.4 Nucleated RBCs 3 H Platelet Estimate NORMAL Plt Morphology Comment NORMAL RBC Morphology NOTED Polychromasia 2+ (3-5) Hypochromasia 1+ (5-14) Basophilic Stippling 1+ (0-2) Macrocytosis 1+ (5-14) Sickle Cells Target Cells 1+ (5-14) Ovalocytes 1+ (5-14) Acanthocytes (Spur) Schistocytes 1+ (0-2) VBG pH 7.28 L VBG pCO2 39 VBG pO2 65 VBG HCO3 19 L VBG O2 Saturation 88.0 VBG Base Excess -7.1 Sodium 138 Potassium 4.4 Chloride 96 Carbon Dioxide 19 L Anion Gap 27 H BUN 41 H Creatinine 4.38 H* Estim Creat Clear Calc 20.9 Estimated GFR 10 POC Glucose 107 Random Glucose 127 H Calcium 8.4 Phosphorus 5.3 H Magnesium 2.1 Total Bilirubin 6.7 H AST 283 H ALT 84 H Alkaline Phosphatase 207 H Total Protein 6.9 Albumin 3.4 L Proteinase 3 (PR3) Ab Myeloperoxidase Ab 06/24/24 06/24/24 04:46 11:27 WBC RBC Hgb Hct MCV MCH MCHC RDW Plt Count MPV Immature Gran % (Auto) Neut % (Auto) Lymph % (Auto) [place] % (Auto) Eos % (Auto) Baso % (Auto) Lymph # (Auto) [place] # (Auto) Eos # (Auto) Baso # (Auto) Abs Immat Gran (auto) Absolute Neuts (auto) Absolute Nucleated RBC Nucleated RBC % (auto) Neutrophils % (Manual) Band Neutrophils % Lymphocytes % (Manual) Monocytes % (Manual) Metamyelocytes % Myelocytes % Abs Neuts (Manual) Lymphocytes # (Manual) Monocytes # (Manual) Metamyelocytes # Myelocytes # Blast Cells # Nucleated RBCs Platelet Estimate Plt Morphology Comment RBC Morphology Polychromasia Hypochromasia Basophilic Stippling Macrocytosis Sickle Cells Target Cells Ovalocytes Acanthocytes (Spur) Schistocytes VBG pH 7.33 VBG pCO2 40 VBG pO2 61 VBG HCO3 21 L VBG O2 Saturation 83.0 VBG Base Excess -3.6 Sodium Potassium Chloride Carbon Dioxide Anion Gap BUN Creatinine Estim Creat Clear Calc Estimated GFR POC Glucose 125 H Random Glucose Calcium Phosphorus Magnesium Total Bilirubin AST ALT Alkaline Phosphatase Total Protein Albumin Proteinase 3 (PR3) Ab Myeloperoxidase Ab Microbiology Microbiology Results: Microbiology 06/23/24 03:59 Blood - Venous Blood Culture - Preliminary No growth after 24 hours. 06/23/24 05:30 Blood - Venous Blood Culture - Preliminary No growth after 24 hours. 06/18/24 15:26 Blood - Venous Blood Culture - Final No growth after 5 days. 06/18/24 15:26 Blood - Venous Blood Culture - Final No growth after 5 days. 06/18/24 20:10 Urine clean catch - Clean Catch Midstream Urine Culture - Final Progress Note: A&P Assessment and plan (1) Shock: Status: Acute (2) Diabetes: Status: Acute (3) Morbid obesity: Status: Acute (4) Liver masses: Status: Acute (5) JAYSON (acute kidney injury): Status: Acute (6) Acidosis, lactic: Status: Acute (7) Elevated WBC count: Status: Acute (8) Afib: Status: Acute Plan Assessment: 59-year-old lady with prior history of colon cancer status post right colectomy admitted with abdominal pain and noted to have liver lesions and multiple hernias with concerns incarceration, hospital course further complicated by acute renal failure requiring dialysis support Plan: Neuro: Metabolic encephalopathy, with slow improvement with dialysis. Cardiac: Shock, continue to titrate off pressor support as tolerated. 2D echo unrevealing. Pulmonary: No acute issues. Renal: Acute renal failure requiring hemodialysis support. Nephrology service care appreciated. Endo: No acute issues. GI: Liver lesions, will require IR biopsy as her condition improves. General surgery service care appreciated. Not a surgical candidate at this facility. Request for transfer to [facility] placed. Repeat CT abdomen with no overt signs of bowel ischemia. Hyperbilirubinemia likely related to liver lesions. ID: Cultures negative to date, continue empiric antibiotics. Heme/Onc: No acute issues. Psych: No acute issues. Miscellaneous: No acute issues. Prophylaxis: Heparin Diet: NPO Critical care time spent: 60 minute Quality Stroke Does the patient have a stroke diagnosis?: No VTE Prior VTE?: No VTE Risk Level:: Medical - moderate - high VTE Device Contraindication: N/A - Device Ordered VTE Drug Contraindication: Treatment Not Indicated
[2024-06-24] MEDS: Norepinephrine Bitartrate/D5W 8 MG/250 ML PLAST..BAG 87.05 MG IVCONT ×3 (13:48→19:03)
--- NOTE | 2024-06-24 17:04 | PM.PNGS ---
Subjective Subjective Date of Service: 06/24/24 Physical Exam Vital Signs: Vital Signs: Last Vital Signs Temp 101.7 F H 06/24/24 16:00 Pulse 104 H 06/24/24 17:00 Resp 49 H 06/24/24 17:00 BP 123/67 06/24/24 17:00 Pulse Ox 94 06/24/24 17:00 O2 Del Method Oxymask 06/24/24 17:00 O2 Flow Rate 4 06/24/24 17:00 BMI result Body Mass Index 58.7 Objective Data Active Medications Albuterol Sulfate (Albuterol Sulfate 90 Mcg 8 Gm Inhaler) 2 puff INHALE Q4H PRN PRN Reason: Shortness Of Breath Or Wheezing Bisacodyl (Bisacodyl 10 Mg Supp.Rect) 10 mg FL BEDTIME [facility] Last Admin: 06/23/24 21:13 Dose: 10 mg Documented By: ISABELLA Fluticasone Propionate (Fluticasone Propionate Nasal 16 Gm [place]) 2 spray NOSTRIL-B DAILY PRN PRN Reason: Allergy Symptoms Heparin Sodium (Porcine) (Heparin Sodium,Porcine 5,000 Unit/Ml Vial) 5,000 unit SUBCUT Q8H [facility] Last Admin: 06/24/24 15:44 Dose: 5,000 unit Documented By: DIPAK Metronidazole (Flagyl) 500 mg in 100 mls @ 100 mls/hr IV Q8H [facility] Last Infusion: 06/24/24 12:57 Dose: Infused Documented By: DIPAK Norepinephrine Bitartrate (Levophed) 8 mg in 250 mls @ 0 mls/hr IVCONT .Q0M [facility]; Protocol Last Admin: 06/24/24 16:31 Dose: 0.29 mcg/kg/min, 87.05 mls/hr Documented By: DIPAK Levofloxacin (Levaquin) 500 mg in 100 mls @ 100 mls/hr IV Q48H [facility] Last Infusion: 06/24/24 13:06 Dose: Infused Documented By: DIPAK Amiodarone HCl 900 mg/ Sodium (Chloride) 518 mls @ 34.533 mls/hr IVCONT .Q15H1M [facility]; Protocol Last Admin: 06/24/24 11:10 Dose: Not Given Documented By: DIPAK Non-Admin Reason: current bag still infusing Sodium Bicarbonate 150 meq/ (Dextrose) 1,000 mls @ 100 mls/hr IV .Q10H [facility] Last Admin: 06/24/24 09:14 Dose: 100 mls/hr Documented By: BENNETT Insulin Human Lispro (Insulin Lispro 100 Unit/Ml 3 Ml Vial) 0 unit SUBCUT 0000,0600,1200,1800 [facility]; Protocol Last Admin: 06/24/24 11:39 Dose: Not Given Documented By: DIPAK Non-Admin Reason: No Insulin Coverage Levothyroxine Sodium (Levothyroxine Sodium 200 Mcg Tablet) 400 mcg PO DAILY@0600 [facility] Last Admin: 06/23/24 05:32 Dose: Not Given Documented By: VIRGINIA Non-Admin Reason: NPO Levothyroxine Sodium (Levothyroxine Sodium 100 Mcg/5 Ml Vial) 300 mcg IVPUSH DAILY@0600 [facility] Last Admin: 06/24/24 06:11 Dose: 300 mcg Documented By: ISABELLA Lidocaine (Lidocaine 4 % Patch Adh..Patch) 1 patch TRANSDERMA DAILY PRN PRN Reason: Pain Magnesium Hydroxide (Milk Of Magnesia 30 Ml Oral.Susp) 30 ml PO DAILY PRN PRN Reason: Constipation Melatonin (Melatonin 3 Mg Tablet) 6 mg PO BEDTIME PRN PRN Reason: Insomnia Last Admin: 06/20/24 19:32 Dose: 6 mg Documented By: RICHELLE Naloxone HCl (Naloxone Hcl Nasal 4 Mg [place]) 4 mg NOSTRILALT DAILY PRN PRN Reason: opioid overdose Ondansetron HCl (Ondansetron Hcl 4 Mg/2 Ml Vial) 4 mg IVPUSH Q6H PRN PRN Reason: Nausea and Vomiting Last Admin: 06/21/24 11:51 Dose: 4 mg Documented By: JEROMY Sodium Chloride (0.9 % Sodium Chloride Flush 3 Ml Syringe) 3 ml IVFLUSH QSHIFT [facility] Last Admin: 06/24/24 15:48 Dose: 3 ml Documented By: DIPAK Labs 06/24/24 04:38 06/24/24 04:38 Labs: Laboratory Results - last 24 hr 06/23/24 06/23/24 06/23/24 17:36 21:10 21:15 MCV 67.5 L MCH 22.0 L MCHC 32.6 RDW 25.2 H Plt Count 331 MPV 10.0 Immature Gran % (Auto) Cancelled Neut % (Auto) Cancelled Lymph % (Auto) Cancelled [place] % (Auto) Cancelled Eos % (Auto) Cancelled Baso % (Auto) Cancelled Lymph # (Auto) Cancelled [place] # (Auto) Cancelled Eos # (Auto) Cancelled Baso # (Auto) Cancelled Abs Immat Gran (auto) Cancelled Absolute Neuts (auto) Cancelled Absolute Nucleated RBC 0.700 H Nucleated RBC % (auto) 1.9 H Neutrophils % (Manual) 73 Band Neutrophils % 7 H Lymphocytes % (Manual) 10 L Monocytes % (Manual) 7 Metamyelocytes % 3 Myelocytes % Abs Neuts (Manual) 28.8 H Lymphocytes # (Manual) 3.6 Monocytes # (Manual) 2.5 H Metamyelocytes # 1.1 Myelocytes # Blast Cells # Nucleated RBCs 3 H Platelet Estimate NORMAL Plt Morphology Comment NORMAL RBC Morphology NOTED Polychromasia Hypochromasia Basophilic Stippling 1+ (0-2) Macrocytosis 1+ (5-14) Sickle Cells Not Reportable Target Cells 1+ (5-14) Ovalocytes Acanthocytes (Spur) 1+ (0-2) Schistocytes VBG pH 7.28 L VBG pCO2 39 VBG pO2 65 VBG HCO3 19 L VBG O2 Saturation 88.0 VBG Base Excess -7.1 Anion Gap 29 H Estim Creat Clear Calc 21.4 Estimated GFR 11 POC Glucose 97 Random Glucose 91 Calcium 8.6 Phosphorus 5.1 H Magnesium 2.2 Total Bilirubin AST ALT Alkaline Phosphatase Total Protein Albumin 06/23/24 06/24/24 06/24/24 23:33 04:38 04:46 MCV 69.2 L MCH 21.8 L MCHC 31.5 RDW 25.2 H Plt Count 314 MPV 10.6 Immature Gran % (Auto) Cancelled Neut % (Auto) Cancelled Lymph % (Auto) Cancelled [place] % (Auto) Cancelled Eos % (Auto) Cancelled Baso % (Auto) Cancelled Lymph # (Auto) Cancelled [place] # (Auto) Cancelled Eos # (Auto) Cancelled Baso # (Auto) Cancelled Abs Immat Gran (auto) Cancelled Absolute Neuts (auto) Cancelled Absolute Nucleated RBC 0.720 H Nucleated RBC % (auto) 2.0 H Neutrophils % (Manual) 71 Band Neutrophils % 5 Lymphocytes % (Manual) 7 L Monocytes % (Manual) 11 Metamyelocytes % 4 Myelocytes % 2 Abs Neuts (Manual) 27.6 H Lymphocytes # (Manual) 2.5 Monocytes # (Manual) 4.0 H Metamyelocytes # 1.5 Myelocytes # 0.7 Blast Cells # 0.4 Nucleated RBCs 3 H Platelet Estimate NORMAL Plt Morphology Comment NORMAL RBC Morphology NOTED Polychromasia 2+ (3-5) Hypochromasia 1+ (5-14) Basophilic Stippling 1+ (0-2) Macrocytosis 1+ (5-14) Sickle Cells Target Cells 1+ (5-14) Ovalocytes 1+ (5-14) Acanthocytes (Spur) Schistocytes 1+ (0-2) VBG pH 7.33 VBG pCO2 40 VBG pO2 61 VBG HCO3 21 L VBG O2 Saturation 83.0 VBG Base Excess -3.6 Anion Gap 27 H Estim Creat Clear Calc 20.9 Estimated GFR 10 POC Glucose 107 Random Glucose 127 H Calcium 8.4 Phosphorus 5.3 H Magnesium 2.1 Total Bilirubin 6.7 H AST 283 H ALT 84 H Alkaline Phosphatase 207 H Total Protein 6.9 Albumin 3.4 L 06/24/24 11:27 MCV MCH MCHC RDW Plt Count MPV Immature Gran % (Auto) Neut % (Auto) Lymph % (Auto) [place] % (Auto) Eos % (Auto) Baso % (Auto) Lymph # (Auto) [place] # (Auto) Eos # (Auto) Baso # (Auto) Abs Immat Gran (auto) Absolute Neuts (auto) Absolute Nucleated RBC Nucleated RBC % (auto) Neutrophils % (Manual) Band Neutrophils % Lymphocytes % (Manual) Monocytes % (Manual) Metamyelocytes % Myelocytes % Abs Neuts (Manual) Lymphocytes # (Manual) Monocytes # (Manual) Metamyelocytes # Myelocytes # Blast Cells # Nucleated RBCs Platelet Estimate Plt Morphology Comment RBC Morphology Polychromasia Hypochromasia Basophilic Stippling Macrocytosis Sickle Cells Target Cells Ovalocytes Acanthocytes (Spur) Schistocytes VBG pH VBG pCO2 VBG pO2 VBG HCO3 VBG O2 Saturation VBG Base Excess Anion Gap Estim Creat Clear Calc Estimated GFR POC Glucose 125 H Random Glucose Calcium Phosphorus Magnesium Total Bilirubin AST ALT Alkaline Phosphatase Total Protein Albumin Microbiology Microbiology Results: Microbiology 06/23/24 03:59 Blood Culture - Preliminary Blood - Venous No growth after 24 hours. 06/23/24 05:30 Blood Culture - Preliminary Blood - Venous No growth after 24 hours. 06/18/24 15:26 Blood Culture - Final Blood - Venous No growth after 5 days. 06/18/24 15:26 Blood Culture - Final Blood - Venous No growth after 5 days. Procedures Date of Service Date of Service: 06/24/24 Progress Note: A&P Time Spent With Patient Time: Total time managing care of this patient today ____ minutes. Quality Stroke Does the patient have a stroke diagnosis?: No VTE Prior VTE?: No VTE Risk Level:: Medical - moderate - high VTE Device Contraindication: N/A - Device Ordered VTE Drug Contraindication: Treatment Not Indicated
[2024-06-24 17:27] LABS: Glucose, Whole Blood 126 mg/dL (60-115)
[2024-06-24 18:08] LABS: Hematocrit 23.2 % (37.0-47.0); Hemoglobin 7.6 g/dl (12.0-16.0); Mean Corpuscular HGB Conc 32.8 g/dl (31.0-35.0); Mean Corpuscular Hemoglobin 22.2 pg (27.0-33.0); Mean Corpuscular Volume 67.6 fL (80.0-98.0); Mean Platelet Volume 10.1 fL (9.4-12.3); Platelet Count 287 X10*3/uL (160-400); Red Blood Count 3.43 X10*6/uL (4.20-5.50); Red Cell Distribution Width 25.2 % (11.0-16.0)
[2024-06-24 18:11] LABS: VBG HCO3 23 mmol/L (22-26); VBG pCO2 39 mmHg; VBG pH 7.38 (7.32-7.43); VBG pO2 58 mmHg
[2024-06-24 18:24] LABS: Alanine Aminotransferase 98 U/L (0-31); Albumin Level 3.3 g/dL (3.5-5.0); Alkaline Phosphatase 198 U/L (39-117); Anion Gap 26 (12-20); Aspartate Amino Transferase 382 U/L (5-31); Blood Urea Nitrogen 27 mg/dL (9-16); Calcium 8.6 mg/dL (8.4-10.2); Carbon Dioxide 21 mmol/L (22-29); Chloride 96 mmol/L (96-108); Creatinine Clr Calc Pharmacy 23.2; Estimated Glomerular Filt Rate 12; Glucose Random 118 mg/dL (60-115); Potassium 4.1 mmol/L (3.3-5.1); Sodium 139 mmol/L (135-145)
[2024-06-24 18:26] LABS: Lactic Acid 9.3 mmol/L (0.5-2.0)
[2024-06-24 18:34] LABS: NRBC Pct Auto 2.6 /100WBC (0.0-0.2); WBC ABN SCTR FOR CBC 1
[2024-06-24 18:37] LABS: White Blood Count 36.4 X10*3/uL (4.8-10.8)
[2024-06-24 18:40] LABS: Atypical Lymph Absolute Manual 0.7 x10*3/uL; Atypical Lymphs Percent Manual 2 % (0-6); Band Neutrophils Percent 3 % (3-5); Lymphocytes Absolute Manual 2.2 X10*3/uL (1.2-4.9); Lymphocytes Percent Manual 6 % (20-40); Metamyelocytes Absolute 0.7 X10*3/uL; Metamyelocytes Percent 2 %; Monocytes Absolute Manual 2.2 X10*3/uL (0.1-1.2); Monocytes Percent Manual 6 % (2-11); Neutrophils Absolute Manual 30.6 X10*3/uL (2.0-8.3); Neutrophils Percent Manual 81 % (45-73); Nucleated Red Blood Cells 1 /100WBC (0-0)
[2024-06-24 18:41] LABS: Toxic Vacuolation PRESENT
[2024-06-24 18:43] LABS: Ovalocytes 1+ (5-14) /OIF; Target Cells 1+ (5-14) /OIF
[2024-06-24] MEDS: Digoxin 0.5 MG/2 ML AMPUL 0.25 MG IVPUSH (18:43)
[2024-06-24 18:44] LABS: Platelet Estimate NORMAL (NORMAL); Platelet Morphology Comment NORMAL; RBC Morphology NOTED
[2024-06-24 19:52] LABS: Venous Blood Gas Refer to POC result
[2024-06-24] MEDS: cefEPime HCl/D5W 2 GM/50 ML PIGGYBACK IV (20:00)
[2024-06-24] MEDS: vancomycin/NS 2,000 MG/500 ML PLAST..BAG 250 MG IV (20:01)
[2024-06-24 20:05] LABS: Reflex Lactate? Lactic Acid Added
[2024-06-24] MEDS: propofoL 200 MG/20 ML VIAL IVPUSH (20:31)
[2024-06-24] MEDS: propofoL 1,000 MG/100 ML VIAL 28.82 MG IVCONT (20:39)
[2024-06-24] MEDS: Sodium Bicarbonate 8.4% 50 MEQ/50 ML SYRINGE IVPUSH (20:40)
--- NOTE | 2024-06-24 20:45 | P.PCNCC_ITS ---
Procedures Date of Service Date of Service: 06/24/24 <Tonja Devries NP - Last Filed: 06/24/24 21:11> 06/25/24 <Jake Briggs MD - Last Filed: 06/25/24 10:34> Intubation Intubation Comments: The patient with metabolic acidosis, tachycardia, tachypneic with RR in the 30- 40?s. O2 Sat dropped to 80?s requiring an increase to 15 L to bring it up to 90. Nasopharyngeal suctioning yielded a minimal amount of bloody secretions. She was preoxygenated with the Ambu-bag 100%. RSI was carried out with the meds below.? The glottis was visualized with the? 4 GlideScope, and the trachea was intubated with a 7.5 ETT via? indirect video visualization, atraumatic.? BSBE, +CO2, SpO2 maintained. The tube was secured at 24 cm at the upper lip. The patient tolerated the procedure well. Placement confirmed with chest x-ray. <Tonja Devries NP - Last Filed: 06/24/24 21:11> Consent for Procedure: Emergent-no informed consent obtained <Tonja Devries NP - Last Filed: 06/24/24 21:11> Time out performed: Yes <Tonja Devries NP - Last Filed: 06/24/24 21:11> Sedative: propofol <Tonja Devries NP - Last Filed: 06/24/24 21:11> Mg given: 200 <Tonja Devries NP - Last Filed: 06/24/24 21:11> Laryngoscope: fiber optic video scope <Tonja Devries NP - Last Filed: 06/24/24 21:11> ET tube size: 7.5 <Tonja Devries NP - Last Filed: 06/24/24 21:11> ET tube uncuffed: Yes <Tonja Devries NP - Last Filed: 06/24/24 21:11> Tube secured depth (cm): 24 <Tonja Devries NP - Last Filed: 06/24/24 21:11> Tube secured location: lips <Tonja Devries NP - Last Filed: 06/24/24 21:11> Tube placement confirmation: visualized tube passing through cords, equal breath sounds bilaterally, no breath sounds over epigastrium and confirmation by capnometry <Tonja Devries NP - Last Filed: 06/24/24 21:11> Patient tolerated procedure: well and no complications <Tonja Devries NP - Last Filed: 06/24/24 21:11> Intubation complications: difficult intubation <Tonja Devries NP - Last Filed: 06/24/24 21:11>
[2024-06-24] MEDS: fentaNYL citrate/NS 1,000 MCG/100 ML PLAST..BAG 2.5 MCG IVCONT (20:48)
[2024-06-24] MEDS: Amiodarone HCL 900 MG in 0.9 % Sodium Chloride 500 ML 17.27 MG IVCONT (21:03)
[2024-06-24] MEDS: Norepinephrine Bitartrate/NS 32 MG/250 ML PLAST..BAG 26.27 MG IVCONT (21:04)
[2024-06-24 21:08] LABS: VBG Base Excess -0.7 mmol/L; VBG HCO3 22 mmol/L (22-26); VBG pCO2 31 mmHg; VBG pH 7.45 (7.32-7.43); VBG pO2 150 mmHg
[2024-06-24] MEDS: bisacodyL 10 MG SUPP.RECT PR (21:13)
[2024-06-24 21:34] LABS: ~Lactic Acid-LAB USE ONLY 9.6 mmol/L (0.5-2.0)
[2024-06-24] MEDS: propofoL 1,000 MG/100 ML VIAL 48.03 MG IVCONT ×2 (21:34→23:18)
[2024-06-24 22:20] LABS: Venous Blood Gas Refer to POC result
[2024-06-24] MEDS: Chlorhexidine Gluc Oral Rinse 15 ML MOUTHWASH BUCCAL (22:44)
--- NOTE | 2024-06-24 22:47 | W.MHC.ACPN ---
Advanced Care Planning Note Advanced Care Planning Note Discussed with: family member(s) Time spent (in minutes): 60 Narrative: The patient with metabolic acidosis, tachycardia, tachypnea became hypoxemic requiring emergent intubation. Her HCP, daughter Mary Nieves was notified by phone. Upon her arrival I had a discussion with her and the patient?s significant other regarding her clinical status.? We discussed shock, arrhythmia, metabolic acidosis, sepsis.? All questions and concerns were addressed. The patient?s daughter and significant other expressed understanding of the gravity of her illness and the likelihood of an impending arrest. Code status was discussed. Mary admitted to being very overwhelmed with all of the information and still wants the pt to get CPR.? Problems Discussed (1) Shock: (2) Diabetes: (3) Morbid obesity: (4) Liver masses: (5) JAYSON (acute kidney injury): (6) Acidosis, lactic: (7) Elevated WBC count: (8) Afib:
[2024-06-24 23:07] LABS: Reflex Lactate? 2 Y
[2024-06-24 23:56] LABS: Glucose, Whole Blood 124 mg/dL (60-115)
[2024-06-25] VITALS (43 sets, daily range): BP systolic 85–139; BP diastolic 36–69; PULSE 71–140; RESP 18–30; TEMP 34.7–38.6; O2SAT 90–100
[2024-06-25 00:09] LABS: ~Lactic Acid-LAB USE ONLY 9.2 mmol/L (0.5-2.0)
[2024-06-25] MEDS: Digoxin 0.5 MG/2 ML AMPUL 0.25 MG IVPUSH ×2 (01:04→05:38)
[2024-06-25] MEDS: propofoL 1,000 MG/100 ML VIAL 38.42 MG IVCONT ×2 (01:05→06:11)
--- NOTE | 2024-06-25 01:39 | PC.NURSE ---
Upon initial assessment at 1900- pt stuporous, only grimacing to vigorous and repeated noxious stimuli, extremities flaccid. Rectal temp 102.6, placed on cooling blanket. AFib RVR on tele, HR up to 170s despite amiodarone gtt. Levophed gtt titrated to maintain MAP > 65. At approx 1945- SpO2 down to 80s, OxyMask increased to 15L to maintain SpO2 > 92%, RR 30-40s, remains difficult to arouse. EMILY Devries notified and to bedside. Decision made to intubate, family updated at bedside and aware of plan of care. At approx 2030- pt preoxygenated with BVM by RT, given Propofol 200 mg IVP total for intubation. ETT #7.5, 26 cm at lip, on ACVC settings. ETT pulled back to 24 cm after pCXR. Propofol and fentanyl gtts started for sedation per JUL. Switched to 4x concentrated Levophed per JUL. Converted to NSR at approx 2230, HR 80-90s. Non-pitting edema noted to all extremities. FiO2 weaned down as tolerated. NPO. No BM but +flatus. Anuric. Skin overall intact, blanchable redness to B/L buttocks. On bariatric bed, repositioned in bed q2hr with wedges and pillows. Bed locked in lowest possible position. [employer] aware of all critical labs for pt.
[2024-06-25] MEDS: metroNIDAZOLE/NS 500 MG/100 ML PIGGYBACK 100 MG IV ×3 (02:28→18:24)
[2024-06-25] MEDS: Sodium Bicarbonate 8.4% 150 MEQ in Dextrose 5 % 850 ML 100 MEQ IV ×3 (03:40→23:53)
[2024-06-25] MEDS: propofoL 1,000 MG/100 ML VIAL 28.82 MG IVCONT (03:41)
[2024-06-25 04:54] LABS: VBG HCO3 22 mmol/L (22-26); VBG pCO2 38 mmHg; VBG pH 7.37 (7.32-7.43); VBG pO2 70 mmHg
[2024-06-25 05:17] LABS: Hematocrit 23.9 % (37.0-47.0); Hemoglobin 7.6 g/dl (12.0-16.0); Mean Corpuscular HGB Conc 31.8 g/dl (31.0-35.0); Mean Corpuscular Hemoglobin 22.1 pg (27.0-33.0); Mean Corpuscular Volume 69.5 fL (80.0-98.0); Mean Platelet Volume 10.3 fL (9.4-12.3); Platelet Count 266 X10*3/uL (160-400); Red Blood Count 3.44 X10*6/uL (4.20-5.50); Red Cell Distribution Width 25.9 % (11.0-16.0)
[2024-06-25 05:24] LABS: NRBC Pct Auto 1.7 /100WBC (0.0-0.2); WBC ABN SCTR FOR CBC 1
[2024-06-25 05:37] LABS: Glucose, Whole Blood 117 mg/dL (60-115)
[2024-06-25] MEDS: Heparin Sodium,Porcine 5,000 UNIT/ML VIAL 5000 UNIT SUBCUT ×3 (05:38→22:26)
[2024-06-25] MEDS: Levothyroxine Sodium 100 MCG/5 ML VIAL 300 MCG IVPUSH (05:38)
[2024-06-25 05:39] LABS: Alanine Aminotransferase 125 U/L (0-31); Albumin Level 3.2 g/dL (3.5-5.0); Alkaline Phosphatase 184 U/L (39-117); Anion Gap 30 (12-20); Aspartate Amino Transferase 574 U/L (5-31); Band Neutrophils Percent 5 % (3-5); Basophils Percent Manual 1 % (0-2); Bilirubin Total 6.8 mg/dL (0.0-1.0); Blood Urea Nitrogen 31 mg/dL (9-16); Calcium 8.5 mg/dL (8.4-10.2); Carbon Dioxide 18 mmol/L (22-29); Chloride 94 mmol/L (96-108); Creatinine Clr Calc Pharmacy 19.7; Estimated Glomerular Filt Rate 10; Glucose Random 115 mg/dL (60-115); Lymphocytes Percent Manual 11 % (20-40); Magnesium 2.1 mg/dL (1.6-2.6); Metamyelocytes Percent 4 %; Monocytes Percent Manual 4 % (2-11); Myelocytes Percent 1 %; Neutrophils Percent Manual 74 % (45-73); Nucleated Red Blood Cells 4 /100WBC (0-0); Phosphorus 5.1 mg/dL (2.7-4.5); Potassium 4.4 mmol/L (3.3-5.1); Sodium 138 mmol/L (135-145); Total Protein 6.9 g/dL (6.5-8.0)
[2024-06-25 05:40] LABS: Giant Platelet PRESENT; Large Platelet PRESENT; Macrocytosis 2+ (15-30) /OIF; Platelet Estimate NORMAL (NORMAL); Platelet Morphology Comment NOTED; RBC Morphology NOTED
[2024-06-25 05:41] LABS: Acanthocytes 2+ (3-5) /OIF
[2024-06-25 05:42] LABS: Burr Cells 2+ (3-5) /OIF; Hypochromasia 1+ (5-14) /OIF; Polychromasia 2+ (3-5) /OIF; Target Cells 2+ (15-30) /OIF; Tear Drop Cells 3+ (>5) /OIF
[2024-06-25 05:43] LABS: Toxic Granulation PRESENT
[2024-06-25 05:44] LABS: Ovalocytes 1+ (5-14) /OIF; Spherocytes 1+ (0-2) /OIF
[2024-06-25 05:45] LABS: Microcytosis 2+ (15-30) /OIF
[2024-06-25 05:47] LABS: Basophils Abs Manual 0.4 X10*3/uL (0.0-0.2); Lymphocytes Absolute Manual 4.1 X10*3/uL (1.2-4.9); Metamyelocytes Absolute 1.5 X10*3/uL; Monocytes Absolute Manual 1.5 X10*3/uL (0.1-1.2); Myelocytes Absolute 0.4 X10*/uL; Neutrophils Absolute Manual 29.3 X10*3/uL (2.0-8.3); White Blood Count 37.1 X10*3/uL (4.8-10.8)
[2024-06-25] MEDS: Norepinephrine Bitartrate/NS 32 MG/250 ML PLAST..BAG 23.27 MG IVCONT (06:36)
[2024-06-25 06:39] LABS: Venous Blood Gas Refer to POC result
[2024-06-25] MEDS: cefEPime HCl/D5W 2 GM/50 ML PIGGYBACK IV (08:14)
[2024-06-25] MEDS: 0.9 % Sodium Chloride Flush 3 ML SYRINGE IVFLUSH ×2 (08:15→14:52)
[2024-06-25] MEDS: Chlorhexidine Gluc Oral Rinse 15 ML MOUTHWASH BUCCAL ×3 (08:15→22:26)
[2024-06-25] MEDS: propofoL 1,000 MG/100 ML VIAL 48.03 MG IVCONT ×8 (08:53→23:53)
[2024-06-25] MEDS: fentaNYL citrate/NS 1,000 MCG/100 ML PLAST..BAG 5 MCG IVCONT (10:30)
--- NOTE | 2024-06-25 10:37 | PM.CCPN ---
Subjective Subjective Date of Service: 06/25/24 Interval History: 59-year-old lady with underlying history of colon cancer status post right colectomy 5 years prior, abdominal hernia, morbid obesity, diabetes mellitus admitted on 06/18/2024 with right upper quadrant pain and nausea. Her CT abdomen showed liver lesion concerning for malignant etiology and multiple abdominal hernia with concern for incarceration. Patient was empirically treated for UTI. Hospital course significant for deteriorating renal function with anuria, metabolic acidosis, and hypotension patient was started hemodialysis support and requiring pressor support. Patient was transferred to intensive care unit. Patient was evaluated by General surgery and concern was raised patient is not a surgical candidate at this institution. Transfer to [facility] for surgical evaluation was requested as patient has prior surgical procedure at [facility] transferred to [facility] was requested and denied. Overnight with worsening respiratory status, further lactic acidosis resulting in respiratory distress requiring intubation and ventilatory support. Also worsening leukocytosis and pressor requirements. Cultures redrawn. Antibiotic coverage broadened. Cultures are negative to date. Critical Care Time (minutes): 60 Physical Exam Vital Signs: Vital Signs: Last Vital Signs Temp 99.6 F 06/25/24 10:00 Pulse 87 06/25/24 10:00 Resp 29 H 06/25/24 10:00 BP 122/62 06/25/24 10:00 Pulse Ox 94 06/25/24 10:00 O2 Del Method Mechanical Ventil ation 06/25/24 10:00 O2 Flow Rate 15 06/24/24 20:00 FiO2 40 06/25/24 10:00 BMI result Body Mass Index 58.7 Const: General: no acute distress and other (Sedated on ventilatory support) Nutritional Appearance: obese Eyes: Sclerae: sclerae normal EOM: EOMs intact bilaterally Neck: Neck: Yes no lymphadenopathy, Yes trachea midline and Yes supple Resp: Auscultation: clear to auscultation bilaterally Cardio: Rate: regular rate Rhythm: regular rhythm Heart sounds: no gallops, no murmurs and no rubs GI: Inspection: Yes Abdominal panniculus present Palpation (GI): Soft to palpation, nontender and not rigid Auscultation: Hypoactive bowel sounds present Extrem: General: Yes no pedal edema, No clubbing and No cyanosis Objective Data Labs 06/25/24 04:49 06/25/24 04:49 Labs: Laboratory Results - last 24 hr 06/24/24 06/24/24 06/24/24 11:27 17:19 17:59 WBC 36.4 H* RBC 3.43 L Hgb 7.6 L Hct 23.2 L MCV 67.6 L MCH 22.2 L MCHC 32.8 RDW 25.2 H Plt Count 287 MPV 10.1 Immature Gran % (Auto) Cancelled Neut % (Auto) Cancelled Lymph % (Auto) Cancelled Mckenzie % (Auto) Cancelled Eos % (Auto) Cancelled Baso % (Auto) Cancelled Lymph # (Auto) Cancelled Mckenzie # (Auto) Cancelled Eos # (Auto) Cancelled Baso # (Auto) Cancelled Abs Immat Gran (auto) Cancelled Absolute Neuts (auto) Cancelled Absolute Nucleated RBC 0.930 H Nucleated RBC % (auto) 2.6 H Neutrophils % (Manual) 81 H Band Neutrophils % 3 Lymphocytes % (Manual) 6 L Atypical Lymphs % (Man) 2 Monocytes % (Manual) 6 Basophils % (Manual) Metamyelocytes % 2 Myelocytes % Abs Neuts (Manual) 30.6 H Lymphocytes # (Manual) 2.2 Atyp Lymphs # (Manual) 0.7 Monocytes # (Manual) 2.2 H Basophils # (Manual) Metamyelocytes # 0.7 Myelocytes # Nucleated RBCs 1 H Toxic Granulation Toxic Vacuolation PRESENT Platelet Estimate NORMAL Large Platelets Giant Platelets Plt Morphology Comment NORMAL RBC Morphology NOTED Polychromasia Hypochromasia Microcytosis Macrocytosis Spherocytes Target Cells 1+ (5-14) Tear Drop Cells Ovalocytes 1+ (5-14) Lauren Cells Acanthocytes (Spur) VBG pH VBG pCO2 VBG pO2 VBG HCO3 VBG O2 Saturation VBG Base Excess Sodium 139 Potassium 4.1 Chloride 96 Carbon Dioxide 21 L Anion Gap 26 H BUN 27 H Creatinine 3.94 H Estim Creat Clear Calc 23.2 Estimated GFR 12 POC Glucose 125 H 126 H Random Glucose 118 H Lactic Acid 9.3 H* Lactic Acid F/U @ 2Hr Lactic Acid F/U @ 4Hr Calcium 8.6 Phosphorus Magnesium Total Bilirubin 7.0 H AST 382 H ALT 98 H Alkaline Phosphatase 198 H Total Protein 7.0 Albumin 3.3 L 06/24/24 06/24/24 06/24/24 18:06 21:01 21:04 WBC RBC Hgb Hct MCV MCH MCHC RDW Plt Count MPV Immature Gran % (Auto) Neut % (Auto) Lymph % (Auto) Mckenzie % (Auto) Eos % (Auto) Baso % (Auto) Lymph # (Auto) Mckenzie # (Auto) Eos # (Auto) Baso # (Auto) Abs Immat Gran (auto) Absolute Neuts (auto) Absolute Nucleated RBC Nucleated RBC % (auto) Neutrophils % (Manual) Band Neutrophils % Lymphocytes % (Manual) Atypical Lymphs % (Man) Monocytes % (Manual) Basophils % (Manual) Metamyelocytes % Myelocytes % Abs Neuts (Manual) Lymphocytes # (Manual) Atyp Lymphs # (Manual) Monocytes # (Manual) Basophils # (Manual) Metamyelocytes # Myelocytes # Nucleated RBCs Toxic Granulation Toxic Vacuolation Platelet Estimate Large Platelets Giant Platelets Plt Morphology Comment RBC Morphology Polychromasia Hypochromasia Microcytosis Macrocytosis Spherocytes Target Cells Tear Drop Cells Ovalocytes Lauren Cells Acanthocytes (Spur) VBG pH 7.38 7.45 H VBG pCO2 39 31 VBG pO2 58 150 VBG HCO3 23 22 VBG O2 Saturation TNP 100.0 VBG Base Excess -1.0 -0.7 Sodium Potassium Chloride Carbon Dioxide Anion Gap BUN Creatinine Estim Creat Clear Calc Estimated GFR POC Glucose Random Glucose Lactic Acid Lactic Acid F/U @ 2Hr 9.6 H* Lactic Acid F/U @ 4Hr Calcium Phosphorus Magnesium Total Bilirubin AST ALT Alkaline Phosphatase Total Protein Albumin 06/24/24 06/24/24 06/25/24 23:42 23:51 04:49 WBC 37.1 H* RBC 3.44 L Hgb 7.6 L Hct 23.9 L MCV 69.5 L MCH 22.1 L MCHC 31.8 RDW 25.9 H Plt Count 266 MPV 10.3 Immature Gran % (Auto) Cancelled Neut % (Auto) Cancelled Lymph % (Auto) Cancelled Mckenzie % (Auto) Cancelled Eos % (Auto) Cancelled Baso % (Auto) Cancelled Lymph # (Auto) Cancelled Mckenzie # (Auto) Cancelled Eos # (Auto) Cancelled Baso # (Auto) Cancelled Abs Immat Gran (auto) Cancelled Absolute Neuts (auto) Cancelled Absolute Nucleated RBC 0.630 H Nucleated RBC % (auto) 1.7 H Neutrophils % (Manual) 74 H Band Neutrophils % 5 Lymphocytes % (Manual) 11 L Atypical Lymphs % (Man) Monocytes % (Manual) 4 Basophils % (Manual) 1 Metamyelocytes % 4 Myelocytes % 1 Abs Neuts (Manual) 29.3 H Lymphocytes # (Manual) 4.1 Atyp Lymphs # (Manual) Monocytes # (Manual) 1.5 H Basophils # (Manual) 0.4 H Metamyelocytes # 1.5 Myelocytes # 0.4 Nucleated RBCs 4 H Toxic Granulation PRESENT Toxic Vacuolation Platelet Estimate NORMAL Large Platelets PRESENT Giant Platelets PRESENT Plt Morphology Comment NOTED RBC Morphology NOTED Polychromasia 2+ (3-5) Hypochromasia 1+ (5-14) Microcytosis 2+ (15-30) Macrocytosis 2+ (15-30) Spherocytes 1+ (0-2) Target Cells 2+ (15-30) Tear Drop Cells 3+ (>5) Ovalocytes 1+ (5-14) [place] Cells 2+ (3-5) Acanthocytes (Spur) 2+ (3-5) VBG pH VBG pCO2 VBG pO2 VBG HCO3 VBG O2 Saturation VBG Base Excess Sodium 138 Potassium 4.4 Chloride 94 L Carbon Dioxide 18 L Anion Gap 30 H BUN 31 H Creatinine 4.64 H* Estim Creat Clear Calc 19.7 Estimated GFR 10 POC Glucose 124 H Random Glucose 115 Lactic Acid Lactic Acid F/U @ 2Hr Lactic Acid F/U @ 4Hr 9.2 H* Calcium 8.5 Phosphorus 5.1 H Magnesium 2.1 Total Bilirubin 6.8 H AST 574 H ALT 125 H Alkaline Phosphatase 184 H Total Protein 6.9 Albumin 3.2 L 06/25/24 06/25/24 04:50 05:31 WBC RBC Hgb Hct MCV MCH MCHC RDW Plt Count MPV Immature Gran % (Auto) Neut % (Auto) Lymph % (Auto) Mckenzie % (Auto) Eos % (Auto) Baso % (Auto) Lymph # (Auto) Mckenzie # (Auto) Eos # (Auto) Baso # (Auto) Abs Immat Gran (auto) Absolute Neuts (auto) Absolute Nucleated RBC Nucleated RBC % (auto) Neutrophils % (Manual) Band Neutrophils % Lymphocytes % (Manual) Atypical Lymphs % (Man) Monocytes % (Manual) Basophils % (Manual) Metamyelocytes % Myelocytes % Abs Neuts (Manual) Lymphocytes # (Manual) Atyp Lymphs # (Manual) Monocytes # (Manual) Basophils # (Manual) Metamyelocytes # Myelocytes # Nucleated RBCs Toxic Granulation Toxic Vacuolation Platelet Estimate Large Platelets Giant Platelets Plt Morphology Comment RBC Morphology Polychromasia Hypochromasia Microcytosis Macrocytosis Spherocytes Target Cells Tear Drop Cells Ovalocytes [place] Cells Acanthocytes (Spur) VBG pH 7.37 VBG pCO2 38 VBG pO2 70 VBG HCO3 22 VBG O2 Saturation 92.0 VBG Base Excess -2.0 Sodium Potassium Chloride Carbon Dioxide Anion Gap BUN Creatinine Estim Creat Clear Calc Estimated GFR POC Glucose 117 H Random Glucose Lactic Acid Lactic Acid F/U @ 2Hr Lactic Acid F/U @ 4Hr Calcium Phosphorus Magnesium Total Bilirubin AST ALT Alkaline Phosphatase Total Protein Albumin Microbiology Microbiology Results: Microbiology 06/23/24 03:59 Blood - Venous Blood Culture - Preliminary No growth after 48 hours. 06/23/24 05:30 Blood - Venous Blood Culture - Preliminary No growth after 48 hours. 06/18/24 15:26 Blood - Venous Blood Culture - Final No growth after 5 days. 06/18/24 15:26 Blood - Venous Blood Culture - Final No growth after 5 days. 06/18/24 20:10 Urine clean catch - Clean Catch Midstream Urine Culture - Final Progress Note: A&P Assessment and plan (1) Afib: Status: Acute (2) Shock: Status: Acute (3) Morbid obesity: Status: Acute (4) JAYSON (acute kidney injury): Status: Acute (5) Acidosis, lactic: Status: Acute (6) Acute respiratory failure: Status: Acute Plan Assessment: 59-year-old lady with prior history of colon cancer status post right colectomy admitted with abdominal pain and noted to have liver lesions and multiple hernias with concerns incarceration, hospital course further complicated by acute renal failure requiring dialysis support Plan: Neuro: Metabolic encephalopathy, with slow improvement with dialysis. Cardiac: Shock, continue to titrate off pressor support as tolerated. 2D echo unrevealing. Pulmonary: orsening lactic acidosis with respiratory compensation causing respiratory distress requiring intubation and ventilatory support. Renal: Acute renal failure requiring hemodialysis support. Nephrology service care appreciated. Unclear source of lactic acidosis to main hypothesis is infectious versus ischemic. Endo: No acute issues. GI: Liver lesions, will require IR biopsy as her condition improves. General surgery service care appreciated. Not a surgical candidate at this facility. Request for transfer to [facility] placed. Repeat CT abdomen with no overt signs of bowel ischemia. Hyperbilirubinemia likely related to liver lesions. However, patient with worsening lactate levels and essentially unrevealing infectious workup. Still with significant suspicion for bowel ischemia as a cause of underlying acidosis. ID: Cultures negative to date, continue empiric antibiotics. Heme/Onc: No acute issues. Psych: No acute issues. Miscellaneous: No acute issues. Prophylaxis: Heparin Diet: Tube feeds Critical care time spent: 60 minute Quality Stroke Does the patient have a stroke diagnosis?: No VTE Prior VTE?: No VTE Risk Level:: Medical - moderate - high VTE Device Contraindication: N/A - Device Ordered VTE Drug Contraindication: Treatment Not Indicated
[2024-06-25 11:51] LABS: Glucose, Whole Blood 114 mg/dL (60-115)
--- NOTE | 2024-06-25 13:57 | P.PNGS_ITS ---
Subjective Subjective Date of Service: 06/25/24 Interval history: Overnight with worsening respiratory status, further lactic acidosis resulting in respiratory distress requiring intubation and ventilatory support. Also worsening leukocytosis and pressor requirements. Cultures redrawn. Antibiotic coverage broadened. Cultures are negative to Patient intubated and not verbally responsive. Physical Exam 2 Vital Signs: Vital Signs: Last Vital Signs Temp 98.1 F 06/25/24 13:00 Pulse 73 06/25/24 13:00 Resp 23 H 06/25/24 13:00 BP 104/52 L 06/25/24 13:00 Pulse Ox 96 06/25/24 13:00 O2 Del Method Mechanical Ventil ation 06/25/24 13:00 O2 Flow Rate 15 06/24/24 20:00 FiO2 40 06/25/24 13:00 BMI result Body Mass Index 58.7 GI: Other: Abdomen is obese but relatively soft no peritoneal signs ventral hernia somewhat reducible but certainly not completely reducible but material feels soft with no overlying skin changes. She has some bowel sounds. Objective Data Active Medications Albuterol Sulfate (Albuterol Sulfate 90 Mcg 8 Gm Inhaler) 2 puff INHALE Q4H PRN PRN Reason: Shortness Of Breath Or Wheezing Bisacodyl (Bisacodyl 10 Mg Supp.Rect) 10 mg MD BEDTIME [facility] Last Admin: 06/24/24 21:13 Dose: 10 mg Documented By: ISABELLA Chlorhexidine Gluconate (Chlorhexidine Gluc Oral Rinse 15 Ml Mouthwash) 15 ml BUCCAL TID [facility] Last Admin: 06/25/24 08:15 Dose: 15 ml Documented By: GIANNA Famotidine (Famotidine/Pf 20 Mg/2 Ml Vial) 20 mg IVPUSH DAILY [facility] Fluticasone Propionate (Fluticasone Propionate Nasal 16 Gm [place]) 2 spray NOSTRIL-B DAILY PRN PRN Reason: Allergy Symptoms Heparin Sodium (Porcine) (Heparin Sodium,Porcine 5,000 Unit/Ml Vial) 5,000 unit SUBCUT Q8H [facility] Last Admin: 06/25/24 05:38 Dose: 5,000 unit Documented By: MARCIO Metronidazole (Flagyl) 500 mg in 100 mls @ 100 mls/hr IV Q8H [facility] Last Infusion: 06/25/24 12:31 Dose: Infused Documented By: GIANNA Amiodarone HCl 900 mg/ Sodium (Chloride) 518 mls @ 34.533 mls/hr IVCONT .Q15H1M [facility]; Protocol Last Admin: 06/24/24 21:03 Dose: 0.5 mg/min, 17.27 mls/hr Documented By: MARCIO Sodium Bicarbonate 150 meq/ (Dextrose) 1,000 mls @ 100 mls/hr IV .Q10H [facility] Last Admin: 06/25/24 03:40 Dose: 100 mls/hr Documented By: MARCIO Norepinephrine Bitartrate (Levophed) 32 mg in 250 mls @ 0 mls/hr IVCONT .Q0M [facility]; Protocol Last Titration: 06/25/24 11:45 Dose: 0.17 mcg/kg/min, 12.76 mls/hr Documented By: GIANNA Propofol (Diprivan) 1,000 mg in 100 mls @ 0 mls/hr IVCONT .Q0M [facility]; Protocol Last Admin: 06/25/24 10:30 Dose: 50 mcg/kg/min, 48.03 mls/hr Documented By: GIANNA Vancomycin HCl 500 mg/ Sodium (Chloride) 110 mls @ 110 mls/hr IV Q24H [facility] Fentanyl (Sublimaze/Ns) 1,000 mcg in 100 mls @ 0 mls/hr IVCONT .Q0M [facility]; Protocol Last Admin: 06/25/24 10:30 Dose: 50 mcg/hr, 5 mls/hr Documented By: GIANNA Cefepime HCl 1 gm/ Sodium (Chloride) 50 mls @ 100 mls/hr IV Q24H [facility] Insulin Human Lispro (Insulin Lispro 100 Unit/Ml 3 Ml Vial) 0 unit SUBCUT 0000,0600,1200,1800 [facility]; Protocol Last Admin: 06/25/24 12:08 Dose: Not Given Documented By: GIANNA Non-Admin Reason: No Insulin Coverage Levothyroxine Sodium (Levothyroxine Sodium 200 Mcg Tablet) 400 mcg PO DAILY@0600 [facility] Last Admin: 06/23/24 05:32 Dose: Not Given Documented By: VIRGINIA Non-Admin Reason: NPO Levothyroxine Sodium (Levothyroxine Sodium 100 Mcg/5 Ml Vial) 300 mcg IVPUSH DAILY@0600 [facility] Last Admin: 06/25/24 05:38 Dose: 300 mcg Documented By: MARCIO Lidocaine (Lidocaine 4 % Patch Adh..Patch) 1 patch TRANSDERMA DAILY PRN PRN Reason: Pain Magnesium Hydroxide (Milk Of Magnesia 30 Ml Oral.Susp) 30 ml PO DAILY PRN PRN Reason: Constipation Melatonin (Melatonin 3 Mg Tablet) 6 mg PO BEDTIME PRN PRN Reason: Insomnia Last Admin: 06/20/24 19:32 Dose: 6 mg Documented By: RICHELLE Naloxone HCl (Naloxone Hcl Nasal 4 Mg [place]) 4 mg NOSTRILALT DAILY PRN PRN Reason: opioid overdose Ondansetron HCl (Ondansetron Hcl 4 Mg/2 Ml Vial) 4 mg IVPUSH Q6H PRN PRN Reason: Nausea and Vomiting Last Admin: 06/21/24 11:51 Dose: 4 mg Documented By: JEROMY Pharmacy Consult (Consult Rx Vancomycin Dosing) 1 each MISCELLANE DAILY PRN PRN Reason: Consult order Sodium Chloride (0.9 % Sodium Chloride Flush 3 Ml Syringe) 3 ml IVFLUSH [facility] Last Admin: 06/25/24 08:15 Dose: 3 ml Documented By: CTORRZ Labs 06/25/24 04:49 06/25/24 04:49 Labs: Laboratory Results - last 24 hr 06/24/24 06/24/24 06/24/24 17:19 17:59 18:06 MCV 67.6 L MCH 22.2 L MCHC 32.8 RDW 25.2 H Plt Count 287 MPV 10.1 Immature Gran % (Auto) Cancelled Neut % (Auto) Cancelled Lymph % (Auto) Cancelled [place] % (Auto) Cancelled Eos % (Auto) Cancelled Baso % (Auto) Cancelled Lymph # (Auto) Cancelled [place] # (Auto) Cancelled Eos # (Auto) Cancelled Baso # (Auto) Cancelled Abs Immat Gran (auto) Cancelled Absolute Neuts (auto) Cancelled Absolute Nucleated RBC 0.930 H Nucleated RBC % (auto) 2.6 H Neutrophils % (Manual) 81 H Band Neutrophils % 3 Lymphocytes % (Manual) 6 L Atypical Lymphs % (Man) 2 Monocytes % (Manual) 6 Basophils % (Manual) Metamyelocytes % 2 Myelocytes % Abs Neuts (Manual) 30.6 H Lymphocytes # (Manual) 2.2 Atyp Lymphs # (Manual) 0.7 Monocytes # (Manual) 2.2 H Basophils # (Manual) Metamyelocytes # 0.7 Myelocytes # Nucleated RBCs 1 H Toxic Granulation Toxic Vacuolation PRESENT Platelet Estimate NORMAL Large Platelets Giant Platelets Plt Morphology Comment NORMAL RBC Morphology NOTED Polychromasia Hypochromasia Microcytosis Macrocytosis Spherocytes Target Cells 1+ (5-14) Tear Drop Cells Ovalocytes 1+ (5-14) Lauren Cells Acanthocytes (Spur) VBG pH 7.38 VBG pCO2 39 VBG pO2 58 VBG HCO3 23 VBG O2 Saturation TNP VBG Base Excess -1.0 Anion Gap 26 H Estim Creat Clear Calc 23.2 Estimated GFR 12 POC Glucose 126 H Random Glucose 118 H Lactic Acid 9.3 H* Lactic Acid F/U @ 2Hr Lactic Acid F/U @ 4Hr Calcium 8.6 Phosphorus Magnesium Total Bilirubin 7.0 H AST 382 H ALT 98 H Alkaline Phosphatase 198 H Total Protein 7.0 Albumin 3.3 L 06/24/24 06/24/24 06/24/24 21:01 21:04 23:42 MCV MCH MCHC RDW Plt Count MPV Immature Gran % (Auto) Neut % (Auto) Lymph % (Auto) [place] % (Auto) Eos % (Auto) Baso % (Auto) Lymph # (Auto) [place] # (Auto) Eos # (Auto) Baso # (Auto) Abs Immat Gran (auto) Absolute Neuts (auto) Absolute Nucleated RBC Nucleated RBC % (auto) Neutrophils % (Manual) Band Neutrophils % Lymphocytes % (Manual) Atypical Lymphs % (Man) Monocytes % (Manual) Basophils % (Manual) Metamyelocytes % Myelocytes % Abs Neuts (Manual) Lymphocytes # (Manual) Atyp Lymphs # (Manual) Monocytes # (Manual) Basophils # (Manual) Metamyelocytes # Myelocytes # Nucleated RBCs Toxic Granulation Toxic Vacuolation Platelet Estimate Large Platelets Giant Platelets Plt Morphology Comment RBC Morphology Polychromasia Hypochromasia Microcytosis Macrocytosis Spherocytes Target Cells Tear Drop Cells Ovalocytes [place] Cells Acanthocytes (Spur) VBG pH 7.45 H VBG pCO2 31 VBG pO2 150 VBG HCO3 22 VBG O2 Saturation 100.0 VBG Base Excess -0.7 Anion Gap Estim Creat Clear Calc Estimated GFR POC Glucose Random Glucose Lactic Acid Lactic Acid F/U @ 2Hr 9.6 H* Lactic Acid F/U @ 4Hr 9.2 H* Calcium Phosphorus Magnesium Total Bilirubin AST ALT Alkaline Phosphatase Total Protein Albumin 06/24/24 06/25/24 06/25/24 23:51 04:49 04:50 MCV 69.5 L MCH 22.1 L MCHC 31.8 RDW 25.9 H Plt Count 266 MPV 10.3 Immature Gran % (Auto) Cancelled Neut % (Auto) Cancelled Lymph % (Auto) Cancelled [place] % (Auto) Cancelled Eos % (Auto) Cancelled Baso % (Auto) Cancelled Lymph # (Auto) Cancelled [place] # (Auto) Cancelled Eos # (Auto) Cancelled Baso # (Auto) Cancelled Abs Immat Gran (auto) Cancelled Absolute Neuts (auto) Cancelled Absolute Nucleated RBC 0.630 H Nucleated RBC % (auto) 1.7 H Neutrophils % (Manual) 74 H Band Neutrophils % 5 Lymphocytes % (Manual) 11 L Atypical Lymphs % (Man) Monocytes % (Manual) 4 Basophils % (Manual) 1 Metamyelocytes % 4 Myelocytes % 1 Abs Neuts (Manual) 29.3 H Lymphocytes # (Manual) 4.1 Atyp Lymphs # (Manual) Monocytes # (Manual) 1.5 H Basophils # (Manual) 0.4 H Metamyelocytes # 1.5 Myelocytes # 0.4 Nucleated RBCs 4 H Toxic Granulation PRESENT Toxic Vacuolation Platelet Estimate NORMAL Large Platelets PRESENT Giant Platelets PRESENT Plt Morphology Comment NOTED RBC Morphology NOTED Polychromasia 2+ (3-5) Hypochromasia 1+ (5-14) Microcytosis 2+ (15-30) Macrocytosis 2+ (15-30) Spherocytes 1+ (0-2) Target Cells 2+ (15-30) Tear Drop Cells 3+ (>5) Ovalocytes 1+ (5-14) [place] Cells 2+ (3-5) Acanthocytes (Spur) 2+ (3-5) VBG pH 7.37 VBG pCO2 38 VBG pO2 70 VBG HCO3 22 VBG O2 Saturation 92.0 VBG Base Excess -2.0 Anion Gap 30 H Estim Creat Clear Calc 19.7 Estimated GFR 10 POC Glucose 124 H Random Glucose 115 Lactic Acid Lactic Acid F/U @ 2Hr Lactic Acid F/U @ 4Hr Calcium 8.5 Phosphorus 5.1 H Magnesium 2.1 Total Bilirubin 6.8 H AST 574 H ALT 125 H Alkaline Phosphatase 184 H Total Protein 6.9 Albumin 3.2 L 06/25/24 06/25/24 05:31 11:41 MCV MCH MCHC RDW Plt Count MPV Immature Gran % (Auto) Neut % (Auto) Lymph % (Auto) [place] % (Auto) Eos % (Auto) Baso % (Auto) Lymph # (Auto) [place] # (Auto) Eos # (Auto) Baso # (Auto) Abs Immat Gran (auto) Absolute Neuts (auto) Absolute Nucleated RBC Nucleated RBC % (auto) Neutrophils % (Manual) Band Neutrophils % Lymphocytes % (Manual) Atypical Lymphs % (Man) Monocytes % (Manual) Basophils % (Manual) Metamyelocytes % Myelocytes % Abs Neuts (Manual) Lymphocytes # (Manual) Atyp Lymphs # (Manual) Monocytes # (Manual) Basophils # (Manual) Metamyelocytes # Myelocytes # Nucleated RBCs Toxic Granulation Toxic Vacuolation Platelet Estimate Large Platelets Giant Platelets Plt Morphology Comment RBC Morphology Polychromasia Hypochromasia Microcytosis Macrocytosis Spherocytes Target Cells Tear Drop Cells Ovalocytes [place] Cells Acanthocytes (Spur) VBG pH VBG pCO2 VBG pO2 VBG HCO3 VBG O2 Saturation VBG Base Excess Anion Gap Estim Creat Clear Calc Estimated GFR POC Glucose 117 H 114 Random Glucose Lactic Acid Lactic Acid F/U @ 2Hr Lactic Acid F/U @ 4Hr Calcium Phosphorus Magnesium Total Bilirubin AST ALT Alkaline Phosphatase Total Protein Albumin Microbiology Microbiology Results: Microbiology 06/23/24 03:59 Blood Culture - Preliminary Blood - Venous No growth after 48 hours. 06/23/24 05:30 Blood Culture - Preliminary Blood - Venous No growth after 48 hours. Procedures Date of Service Date of Service: 06/25/24 Progress Note: A&P Assessment and plan (1) Acidosis, lactic: Status: Acute Assessment and Plan: 59-year-old female with multiple medical problems with large ventral hernia with bowel present but on CT scan 2 days ago no significant evidence of ischemia. Patient progressively getting worse requiring intubation yesterday lactic acidosis is increased. Patient has been supported with IV fluid resuscitation intubation ventilation dialysis but still has issues with increasing lactic acid. Abdominal exam on sedation and in the ICU still is relatively benign. Patient is not a good surgical candidate here even for exploration and what this large hernia most likely would not be able to close her abdomen requiring some type of temporizing mesh leaving an open abdomen. Long discussion with ICU as well as medical team and try to optimize as much her other issues today. Our attempts to try to get her transferred to different facility is not been successful. In regards to surgery she would do better with a larger tertiary center where she would have better chances with intraoperative procedure which may even require leaving her abdomen open and paralyzed secondary to her large status and BMI of almost 60 and large loss of domain ventral hernia. Hopefully if she does not show any signs of improvement we can try again on Wednesday for transfer to facility where the only real good way of ruling out any bowel ischemia would be a surgical exploration but this would also be very high-risk with her on pressors needing dialysis and with this large hernia. Time Spent With Patient Time: Total time managing care of this patient today ____ minutes. Quality Stroke Does the patient have a stroke diagnosis?: No VTE Prior VTE?: No VTE Risk Level:: Medical - moderate - high VTE Device Contraindication: N/A - Device Ordered VTE Drug Contraindication: Treatment Not Indicated
[2024-06-25] MEDS: Amiodarone HCL 900 MG in 0.9 % Sodium Chloride 500 ML 17.27 MG IVCONT (15:55)
[2024-06-25] MEDS: cefEPime HCl 1 GM in 0.9 % Sodium Chloride 50 ML IV (17:29)
[2024-06-25 17:40] LABS: Glucose, Whole Blood 104 mg/dL (60-115)
--- NOTE | 2024-06-25 18:10 | HO.SKINPHOTO ---
Location: BL buttock/gluteal fold
[2024-06-25 18:41] LABS: Vancomycin Random 18.7 mcg/mL (15-20)
--- NOTE | 2024-06-25 19:19 | PC.NURSE ---
Sedated, fentanyl and propofol- per JUL. does not open eyes, does not follow commands, Flaccid extremities.? ?Intubated, PC vent support Sinus Rhythmon tele, on pressor support, MAP goal >65,? Levophed 4x gtt and Amiodarone gtt per MAR? Anuric, Bladder scan Q shift? LBM 2/6,soft abdomen, positive bowel sounds, Tube feeds initiated today tolerating without issues.? feeds, POC q 6HRS. Scattered bruising to upper extremities, Blanchable redness to right? buttock, Purplish area to left buttock, small open area to gluteal creast (Foam DSG/barrier cream applied) (repositioning maintained). Flaccid extremities (passive ROM performed), on a bariatric bed. 101.5 placed on cooling blanket with improvement to 98.6?? RIJ? Mariaelena catheter - peripheral IVs in place.
[2024-06-25] MEDS: Norepinephrine Bitartrate/NS 32 MG/250 ML PLAST..BAG 15.76 MG IVCONT (21:36)
[2024-06-26] VITALS (41 sets, daily range): BP systolic 93–131; BP diastolic 47–63; PULSE 66–145; RESP 17–29; TEMP 34.9–39.2; O2SAT 91–100
[2024-06-26 00:16] LABS: Glucose, Whole Blood 96 mg/dL (60-115)
[2024-06-26] MEDS: propofoL 1,000 MG/100 ML VIAL 48.03 MG IVCONT ×7 (01:36→13:26)
[2024-06-26] MEDS: metroNIDAZOLE/NS 500 MG/100 ML PIGGYBACK 100 MG IV ×3 (03:24→18:03)
[2024-06-26 05:18] LABS: VBG Base Excess 4.1 mmol/L; VBG HCO3 29 mmol/L (22-26); VBG pCO2 47 mmHg; VBG pH 7.39 (7.32-7.43); VBG pO2 52 mmHg
[2024-06-26] MEDS: fentaNYL citrate/NS 1,000 MCG/100 ML PLAST..BAG 5 MCG IVCONT (05:21)
[2024-06-26 05:22] LABS: Venous Blood Gas Refer to POC result
[2024-06-26] MEDS: Heparin Sodium,Porcine 5,000 UNIT/ML VIAL 5000 UNIT SUBCUT ×2 (05:22→22:01)
[2024-06-26] MEDS: Levothyroxine Sodium 100 MCG/5 ML VIAL 300 MCG IVPUSH (05:22)
[2024-06-26 05:47] LABS: Hematocrit 24.1 % (37.0-47.0); Hemoglobin 7.5 g/dl (12.0-16.0); Mean Corpuscular HGB Conc 31.1 g/dl (31.0-35.0); Mean Corpuscular Hemoglobin 22.3 pg (27.0-33.0); Mean Corpuscular Volume 71.7 fL (80.0-98.0); Mean Platelet Volume 10.6 fL (9.4-12.3); Platelet Count 234 X10*3/uL (160-400); Red Blood Count 3.36 X10*6/uL (4.20-5.50); Red Cell Distribution Width 25.7 % (11.0-16.0)
[2024-06-26 05:49] LABS: NRBC Pct Auto 1.6 /100WBC (0.0-0.2)
[2024-06-26 05:50] LABS: White Blood Count 35.3 X10*3/uL (4.8-10.8)
[2024-06-26 06:03] LABS: Vancomycin Random 17.8 mcg/mL (15-20)
[2024-06-26 06:24] LABS: Band Neutrophils Percent 5 % (3-5); Lymphocytes Absolute Manual 1.4 X10*3/uL (1.2-4.9); Lymphocytes Percent Manual 4 % (20-40); Metamyelocytes Absolute 1.4 X10*3/uL; Metamyelocytes Percent 4 %; Microcytosis 2+ (15-30) /OIF; Monocytes Absolute Manual 2.8 X10*3/uL (0.1-1.2); Monocytes Percent Manual 8 % (2-11); Myelocytes Absolute 0.7 X10*/uL; Myelocytes Percent 2 %; Neutrophils Absolute Manual 28.9 X10*3/uL (2.0-8.3); Neutrophils Percent Manual 77 % (45-73); Nucleated Red Blood Cells 7 /100WBC (0-0); Platelet Estimate NORMAL (NORMAL); RBC Morphology NOTED
[2024-06-26 06:25] LABS: Acanthocytes 1+ (0-2) /OIF; Large Platelet PRESENT; Ovalocytes 1+ (5-14) /OIF; Platelet Morphology Comment NOTED; Schistocytes 1+ (0-2) /OIF; Stomatocytes 1+ (5-14) /OIF; Target Cells 2+ (15-30) /OIF; Tear Drop Cells 1+ (0-2) /OIF
[2024-06-26 06:26] LABS: Hypochromasia 2+ (15-30) /OIF; Toxic Vacuolation PRESENT
[2024-06-26 06:28] LABS: Alanine Aminotransferase 231 U/L (0-31); Albumin Level 2.9 g/dL (3.5-5.0); Alkaline Phosphatase 188 U/L (39-117); Anion Gap 31 (12-20); Aspartate Amino Transferase 1285 U/L (5-31); Bilirubin Total 6.9 mg/dL (0.0-1.0); Blood Urea Nitrogen 41 mg/dL (9-16); Calcium 8.2 mg/dL (8.4-10.2); Carbon Dioxide 21 mmol/L (22-29); Chloride 89 mmol/L (96-108); Creatinine Clr Calc Pharmacy 16.7; Estimated Glomerular Filt Rate 8; Glucose Random 88 mg/dL (60-115); Magnesium 2.1 mg/dL (1.6-2.6); Phosphorus 6.1 mg/dL (2.7-4.5); Potassium 4.7 mmol/L (3.3-5.1); Sodium 136 mmol/L (135-145); Total Protein 6.8 g/dL (6.5-8.0)
[2024-06-26] MEDS: 0.9 % Sodium Chloride Flush 3 ML SYRINGE IVFLUSH ×3 (06:59→23:44)
[2024-06-26] MEDS: Famotidine/PF 20 MG/2 ML VIAL IVPUSH (08:01)
[2024-06-26] MEDS: Chlorhexidine Gluc Oral Rinse 15 ML MOUTHWASH BUCCAL ×3 (08:01→20:44)
[2024-06-26] MEDS: Amiodarone/Dextrose 150 MG/100 ML PLAST..BAG 600 MG IV (08:31)
--- NOTE | 2024-06-26 09:13 | PM.PNGS ---
Subjective Subjective Date of Service: 06/26/24 Interval history: Intubated, sedated Physical Exam Vital Signs: Vital Signs: Last Vital Signs Temp 101.1 F H 06/26/24 09:00 Pulse 91 06/26/24 09:00 Resp 25 H 06/26/24 09:00 BP 102/51 L 06/26/24 09:00 Pulse Ox 91 L 06/26/24 09:00 O2 Del Method Mechanical Ventil ation 06/26/24 09:00 O2 Flow Rate 15 06/24/24 20:00 FiO2 45 06/26/24 09:00 BMI result Body Mass Index 58.7 Const: Other: Intubated and sedated GI: Other: Obese, large incisional hernia, soft, no overlying skin changes, no erythema. No perirectal/perineal infections appreciated Skin: Other: Warm, dry, no apparent skin abscess Extrem: Other: Compression stockings in place Objective Data Active Medications Albuterol Sulfate (Albuterol Sulfate 90 Mcg 8 Gm Inhaler) 2 puff INHALE Q4H PRN PRN Reason: Shortness Of Breath Or Wheezing Bisacodyl (Bisacodyl 10 Mg Supp.Rect) 10 mg DE BEDTIME [facility] Last Admin: 06/25/24 21:12 Dose: Not Given Documented By: MARCIO Non-Admin Reason: Physician Held Med Chlorhexidine Gluconate (Chlorhexidine Gluc Oral Rinse 15 Ml Mouthwash) 15 ml BUCCAL TID [facility] Last Admin: 06/26/24 08:01 Dose: 15 ml Documented By: RICH Famotidine (Famotidine/Pf 20 Mg/2 Ml Vial) 20 mg IVPUSH DAILY [facility] Last Admin: 06/26/24 08:01 Dose: 20 mg Documented By: RICH Fluticasone Propionate (Fluticasone Propionate Nasal 16 Gm [place]) 2 spray NOSTRIL-B DAILY PRN PRN Reason: Allergy Symptoms Heparin Sodium (Porcine) (Heparin Sodium,Porcine 5,000 Unit/Ml Vial) 5,000 unit SUBCUT Q8H [facility] Last Admin: 06/26/24 05:22 Dose: 5,000 unit Documented By: MARCIO Metronidazole (Flagyl) 500 mg in 100 mls @ 100 mls/hr IV Q8H [facility] Last Infusion: 06/26/24 04:39 Dose: Infused Documented By: MARCIO Amiodarone HCl 900 mg/ Sodium (Chloride) 518 mls @ 34.533 mls/hr IVCONT .Q15H1M [facility]; Protocol Last Admin: 06/26/24 06:50 Dose: Not Given Documented By: RICH Non-Admin Reason: IV Running Sodium Bicarbonate 150 meq/ (Dextrose) 1,000 mls @ 100 mls/hr IV .Q10H [facility] Last Admin: 06/25/24 23:53 Dose: 100 mls/hr Documented By: MARCIO Norepinephrine Bitartrate (Levophed) 32 mg in 250 mls @ 0 mls/hr IVCONT .Q0M [facility]; Protocol Last Admin: 06/25/24 21:36 Dose: 0.21 mcg/kg/min, 15.76 mls/hr Documented By: ALEXANDER Co-signed By: MARCIO Propofol (Diprivan) 1,000 mg in 100 mls @ 0 mls/hr IVCONT .Q0M [facility]; Protocol Last Admin: 06/26/24 07:21 Dose: 50 mcg/kg/min, 48.03 mls/hr Documented By: RICH Fentanyl (Sublimaze/Ns) 1,000 mcg in 100 mls @ 0 mls/hr IVCONT .Q0M [facility]; Protocol Last Admin: 06/26/24 05:21 Dose: 50 mcg/hr, 5 mls/hr Documented By: MARCIO Cefepime HCl 1 gm/ Sodium (Chloride) 50 mls @ 100 mls/hr IV Q24H [facility] Last Infusion: 06/25/24 18:25 Dose: Infused Documented By: GIANNA Vancomycin HCl 500 mg/ Sodium (Chloride) 110 mls @ 110 mls/hr IV Q48H [facility] Fluconazole 100 mg/ IV (Miscellaneous Supplies) 50 mls @ 50 mls/hr IV Q24H [facility] Dexmedetomidine HCl (Precedex) 400 mcg in 100 mls @ 0 mls/hr IVCONT .Q0M [facility]; Protocol Insulin Human Lispro (Insulin Lispro 100 Unit/Ml 3 Ml Vial) 0 unit SUBCUT 0000,0600,1200,1800 [facility]; Protocol Last Admin: 06/26/24 05:33 Dose: Not Given Documented By: MARCIO Non-Admin Reason: No Insulin Coverage Levothyroxine Sodium (Levothyroxine Sodium 200 Mcg Tablet) 400 mcg PO DAILY@0600 [facility] Last Admin: 06/23/24 05:32 Dose: Not Given Documented By: VIRGINIA Non-Admin Reason: NPO Levothyroxine Sodium (Levothyroxine Sodium 100 Mcg/5 Ml Vial) 300 mcg IVPUSH DAILY@0600 [facility] Last Admin: 06/26/24 05:22 Dose: 300 mcg Documented By: MARCIO Lidocaine (Lidocaine 4 % Patch Adh..Patch) 1 patch TRANSDERMA DAILY PRN PRN Reason: Pain Magnesium Hydroxide (Milk Of Magnesia 30 Ml Oral.Susp) 30 ml PO DAILY PRN PRN Reason: Constipation Melatonin (Melatonin 3 Mg Tablet) 6 mg PO BEDTIME PRN PRN Reason: Insomnia Last Admin: 06/20/24 19:32 Dose: 6 mg Documented By: RICHELLE Naloxone HCl (Naloxone Hcl Nasal 4 Mg [place]) 4 mg NOSTRILALT DAILY PRN PRN Reason: opioid overdose Ondansetron HCl (Ondansetron Hcl 4 Mg/2 Ml Vial) 4 mg IVPUSH Q6H PRN PRN Reason: Nausea and Vomiting Last Admin: 06/21/24 11:51 Dose: 4 mg Documented By: JEROMY Pharmacy Consult (Consult Rx Vancomycin Dosing) 1 each MISCELLANE DAILY PRN PRN Reason: Consult order Sodium Chloride (0.9 % Sodium Chloride Flush 3 Ml Syringe) 3 ml IVFLUSH QSHIFT [facility] Last Admin: 06/26/24 06:59 Dose: 3 ml Documented By: RICH Labs 06/26/24 05:12 06/26/24 05:12 Labs: Laboratory Results - last 24 hr 06/25/24 06/25/24 06/25/24 11:41 17:32 17:55 MCV MCH MCHC RDW Plt Count MPV Immature Gran % (Auto) Neut % (Auto) Lymph % (Auto) [place] % (Auto) Eos % (Auto) Baso % (Auto) Lymph # (Auto) [place] # (Auto) Eos # (Auto) Baso # (Auto) Abs Immat Gran (auto) Absolute Neuts (auto) Absolute Nucleated RBC Nucleated RBC % (auto) Neutrophils % (Manual) Band Neutrophils % Lymphocytes % (Manual) Monocytes % (Manual) Metamyelocytes % Myelocytes % Abs Neuts (Manual) Lymphocytes # (Manual) Monocytes # (Manual) Metamyelocytes # Myelocytes # Nucleated RBCs Toxic Vacuolation Platelet Estimate Large Platelets Plt Morphology Comment RBC Morphology Hypochromasia Microcytosis Target Cells Tear Drop Cells Ovalocytes Stomatocytes Acanthocytes (Spur) Schistocytes VBG pH VBG pCO2 VBG pO2 VBG HCO3 VBG O2 Saturation VBG Base Excess Anion Gap Estim Creat Clear Calc Estimated GFR POC Glucose 114 104 Random Glucose Calcium Phosphorus Magnesium Total Bilirubin AST ALT Alkaline Phosphatase Total Protein Albumin Random Vancomycin 18.7 06/26/24 06/26/24 06/26/24 00:13 05:12 05:13 MCV 71.7 L MCH 22.3 L MCHC 31.1 RDW 25.7 H Plt Count 234 MPV 10.6 Immature Gran % (Auto) Cancelled Neut % (Auto) Cancelled Lymph % (Auto) Cancelled [place] % (Auto) Cancelled Eos % (Auto) Cancelled Baso % (Auto) Cancelled Lymph # (Auto) Cancelled [place] # (Auto) Cancelled Eos # (Auto) Cancelled Baso # (Auto) Cancelled Abs Immat Gran (auto) Cancelled Absolute Neuts (auto) Cancelled Absolute Nucleated RBC 0.580 H Nucleated RBC % (auto) 1.6 H Neutrophils % (Manual) 77 H Band Neutrophils % 5 Lymphocytes % (Manual) 4 L Monocytes % (Manual) 8 Metamyelocytes % 4 Myelocytes % 2 Abs Neuts (Manual) 28.9 H Lymphocytes # (Manual) 1.4 Monocytes # (Manual) 2.8 H Metamyelocytes # 1.4 Myelocytes # 0.7 Nucleated RBCs 7 H Toxic Vacuolation PRESENT Platelet Estimate NORMAL Large Platelets PRESENT Plt Morphology Comment NOTED RBC Morphology NOTED Hypochromasia 2+ (15-30) Microcytosis 2+ (15-30) Target Cells 2+ (15-30) Tear Drop Cells 1+ (0-2) Ovalocytes 1+ (5-14) Stomatocytes 1+ (5-14) Acanthocytes (Spur) 1+ (0-2) Schistocytes 1+ (0-2) VBG pH 7.39 VBG pCO2 47 VBG pO2 52 VBG HCO3 29 H VBG O2 Saturation 72.0 VBG Base Excess 4.1 Anion Gap 31 H Estim Creat Clear Calc 16.7 Estimated GFR 8 POC Glucose 96 Random Glucose 88 Calcium 8.2 L Phosphorus 6.1 H Magnesium 2.1 Total Bilirubin 6.9 H AST 1285 H ALT 231 H Alkaline Phosphatase 188 H Total Protein 6.8 Albumin 2.9 L Random Vancomycin 17.8 Microbiology Microbiology Results: Microbiology 06/24/24 19:04 Blood Culture - Preliminary Blood - Venous No growth after 24 hours. 06/24/24 19:04 Blood Culture - Preliminary Blood - Venous No growth after 24 hours. 06/23/24 03:59 Blood Culture - Preliminary Blood - Venous No growth after 48 hours. 06/23/24 05:30 Blood Culture - Preliminary Blood - Venous No growth after 48 hours. Procedures Date of Service Date of Service: 06/26/24 Progress Note: A&P Assessment and plan (1) Sepsis: Status: Acute (2) Elevated WBC count: Status: Acute (3) Acidosis, lactic: Status: Acute (4) Liver masses: Status: Acute (5) Incisional hernia: Status: Acute Plan Worsening WBC, lactic acid but clinically no significant change in her abdominal examination. Repeat CT abdomen and pelvis shows less evidence of inflammatory change in the large upper hernia. A small amount of fluid in the lower hernia. Liver lesions confirmed on the contrasted CT. Laboratory seem out of proportion to physical findings. Patient is currently not stable for anesthesia, ? IR liver biopsy. Time Spent With Patient Time: Total time managing care of this patient today ____ minutes. Quality Stroke Does the patient have a stroke diagnosis?: No VTE Prior VTE?: No VTE Risk Level:: Medical - moderate - high VTE Device Contraindication: N/A - Device Ordered VTE Drug Contraindication: Treatment Not Indicated
[2024-06-26] MEDS: Sodium Bicarbonate 8.4% 150 MEQ in Dextrose 5 % 850 ML 100 MEQ IV ×2 (09:24→20:41)
[2024-06-26] MEDS: dexmedeTOMIDidine HCL/NS 400 MCG/100 ML INFUS..BTL 40.03 MCG IVCONT ×5 (09:37→18:39)
[2024-06-26] MEDS: Fluconazole in NaCl,Iso-Osm 100 MG in Container,Empty 0 ML 50 MG IV (10:07)
[2024-06-26] MEDS: Heparin Sodium,Porcine 5,000 UNIT/ML VIAL 5000 UNIT INTRACATH (10:35)
[2024-06-26 11:02] LABS: INTERNATIONAL NORM RATIO 2.3 (0.9-1.1); Prothrombin Time 26.3 SEC (10.9-12.4)
[2024-06-26 11:25] LABS: Glucose, Whole Blood 131 mg/dL (60-115)
--- NOTE | 2024-06-26 11:46 | MHC.CLN ---
F/U TF STARTED PT REMAINS INTUBATED AND SEDATED PT CURRENTLY RECEIVING NEPRO AT 40ML/HR PROVIDES [id number] (2996KCALS TOTAL WITH SEDATION; 52KCALS/KG BASED ON IBW), 78G PROTEIN, 698ML FREE WATER FROM FORMULA PT IS BEING OVERFED R/T SEDATION/PROPOFOL PROVIDING 1268KCALS RECOMMEND REDUCING TF TO NEPRO AT 10ML/HR TO PROVIDE 432KCALS (1700KCALS WITH SEDATION; 30KCALS/KG BASED ON IBW), 27G PROTEIN, 175ML FREE WATER FROM FORMULA MONITOR TOLERANCE AND LYTES GOAL TO INCREASE TF SEDATION IS REDUCED TO MEET KCAL/PROTEIN GOALS
[2024-06-26] MEDS: Norepinephrine Bitartrate/NS 32 MG/250 ML PLAST..BAG 15.76 MG IVCONT (12:40)
--- NOTE | 2024-06-26 12:49 | PM.PROC ---
Brief Operative Note Date of procedure: 06/26/24 Pre-op diagnosis: Liver mass Post-op diagnosis: same Procedure: US liver mass biopsy Left lobe liver mass- 3 x 20 g cores performed. No immediate complications.
[2024-06-26] MEDS: Lidocaine HCl 1 % MPF 5 ML VIAL SUBCUT (13:07)
--- NOTE | 2024-06-26 14:26 | MHC.CM.PN ---
Pt continues on ventilatory support and HD. Pt is not a surgical candidate for [facility] [place] [facility] - efforts may continue to find an MD at another tertiary center who may be able to accept pt. Plans for the day include reduction of sedation and change to Precedex. Broad STR referrals placed as it seems likely that pt will have high medical needs following acute care d/c. CM to follow
[2024-06-26] MEDS: Amiodarone HCL 900 MG in 0.9 % Sodium Chloride 500 ML 17.27 MG IVCONT (14:45)
--- NOTE | 2024-06-26 15:07 | PM.CCPN ---
Subjective Subjective Date of Service: 06/26/24 Critical Care Time (minutes): 35 Comment: On ventilator support this morning On Levophed for vasopressor support On fentanyl and propofol for analgesia and sedation Episodes of atrial fibrillation with RVR despite being on amiodarone drip Underwent hemodialysis session this morning He also underwent ultrasound-guided bedside liver biopsy Physical Exam Vital Signs: Vital Signs: Last Vital Signs Temp 101.3 F H 06/26/24 14:00 Pulse 80 06/26/24 14:00 Resp 20 06/26/24 14:00 BP 115/49 L 06/26/24 14:00 Pulse Ox 95 06/26/24 14:00 O2 Del Method Mechanical Ventil ation 06/26/24 14:00 O2 Flow Rate 15 06/24/24 20:00 FiO2 45 06/26/24 14:00 BMI result Body Mass Index 58.7 General: acute distress, ill appearing and tired appearing Nutritional Appearance: well nourished and overweight Eyes: appearance normal, both eyes and all related structures; Alignment and Position: alignment normal and position normal Neck: No lymphadenopathy, no thyromegaly Resp: bilateral air entry equal, crackles heard bilaterally Cardio: Regular rate, regular rhythm; Heart sounds: S1 normal heart sound present and S2 normal heart sound present GI: soft, nontender, large herniated bowel loops felt, no guarding, no hepatosplenomegaly : bladder normal to inspection, bladder normal to palpation, no renal angle tenderness Skin: no rashes or lesions noted and elasticity normal Neuro: Sedated, no focal deficits Objective Data Labs 06/26/24 05:12 06/26/24 05:12 Labs: Laboratory Results - last 24 hr 06/22/24 06/22/24 06/22/24 00:30 05:27 05:27 WBC 22.0 H 22.0 H RBC 3.47 L 3.41 L Hgb 7.6 L 7.4 L Hct 23.4 L 23.0 L MCV 67.4 L 67.4 L MCH 21.9 L 21.7 L MCHC 32.5 32.2 RDW 24.1 H 23.9 H Plt Count 306 293 MPV 10.4 10.7 Immature Gran % (Auto) Neut % (Auto) Lymph % (Auto) [place] % (Auto) Eos % (Auto) Baso % (Auto) Lymph # (Auto) [place] # (Auto) Eos # (Auto) Baso # (Auto) Abs Immat Gran (auto) Absolute Neuts (auto) Absolute Nucleated RBC 0.090 H 0.090 H Nucleated RBC % (auto) 0.4 H 0.4 H Neutrophils % (Manual) Band Neutrophils % Lymphocytes % (Manual) Monocytes % (Manual) Metamyelocytes % Myelocytes % Abs Neuts (Manual) Lymphocytes # (Manual) Monocytes # (Manual) Metamyelocytes # Myelocytes # Nucleated RBCs Toxic Vacuolation Platelet Estimate Large Platelets Plt Morphology Comment RBC Morphology Polychromasia Hypochromasia Basophilic Stippling Microcytosis Macrocytosis Spherocytes Target Cells Tear Drop Cells Ovalocytes Stomatocytes Acanthocytes (Spur) Schistocytes PT INR VBG pH 7.31 L VBG pCO2 44 VBG pO2 70 VBG HCO3 22 VBG O2 Saturation 93.0 VBG Base Excess -3.3 Sodium 132 L Cancelled 132 L Potassium 5.1 Cancelled Chloride 99 Carbon Dioxide 18 L Anion Gap 20 BUN 53 H Creatinine 5.01 H* Estim Creat Clear Calc 18.3 Estimated GFR 9 POC Glucose Random Glucose 90 Lactic Acid Lactic Acid F/U @ 2Hr Lactic Acid F/U @ 4Hr Calcium 7.9 L D Phosphorus Magnesium Total Bilirubin AST ALT Alkaline Phosphatase Troponin I High Sens Total Protein Albumin Random Cortisol Random Vancomycin Salicylates Acetaminophen Blood Type Antibody Screen 06/22/24 06/22/24 06/22/24 05:27 05:27 05:27 WBC RBC Hgb Hct MCV MCH MCHC RDW Plt Count MPV Immature Gran % (Auto) Neut % (Auto) Lymph % (Auto) [place] % (Auto) Eos % (Auto) Baso % (Auto) Lymph # (Auto) [place] # (Auto) Eos # (Auto) Baso # (Auto) Abs Immat Gran (auto) Absolute Neuts (auto) Absolute Nucleated RBC Nucleated RBC % (auto) Neutrophils % (Manual) Band Neutrophils % Lymphocytes % (Manual) Monocytes % (Manual) Metamyelocytes % Myelocytes % Abs Neuts (Manual) Lymphocytes # (Manual) Monocytes # (Manual) Metamyelocytes # Myelocytes # Nucleated RBCs Toxic Vacuolation Platelet Estimate Large Platelets Plt Morphology Comment RBC Morphology Polychromasia Hypochromasia Basophilic Stippling Microcytosis Macrocytosis Spherocytes Target Cells Tear Drop Cells Ovalocytes Stomatocytes Acanthocytes (Spur) Schistocytes PT INR VBG pH VBG pCO2 VBG pO2 VBG HCO3 VBG O2 Saturation VBG Base Excess Sodium Potassium 4.9 Chloride Cancelled 98 Carbon Dioxide Cancelled 20 L Anion Gap Cancelled BUN Creatinine Estim Creat Clear Calc Estimated GFR POC Glucose Random Glucose Lactic Acid Lactic Acid F/U @ 2Hr Lactic Acid F/U @ 4Hr Calcium Phosphorus Magnesium Total Bilirubin AST ALT Alkaline Phosphatase Troponin I High Sens Total Protein Albumin Random Cortisol Random Vancomycin Salicylates Acetaminophen Blood Type Antibody Screen 06/22/24 06/22/24 06/22/24 05:27 05:27 05:27 WBC RBC Hgb Hct MCV MCH MCHC RDW Plt Count MPV Immature Gran % (Auto) Neut % (Auto) Lymph % (Auto) [place] % (Auto) Eos % (Auto) Baso % (Auto) Lymph # (Auto) [place] # (Auto) Eos # (Auto) Baso # (Auto) Abs Immat Gran (auto) Absolute Neuts (auto) Absolute Nucleated RBC Nucleated RBC % (auto) Neutrophils % (Manual) Band Neutrophils % Lymphocytes % (Manual) Monocytes % (Manual) Metamyelocytes % Myelocytes % Abs Neuts (Manual) Lymphocytes # (Manual) Monocytes # (Manual) Metamyelocytes # Myelocytes # Nucleated RBCs Toxic Vacuolation Platelet Estimate Large Platelets Plt Morphology Comment RBC Morphology Polychromasia Hypochromasia Basophilic Stippling Microcytosis Macrocytosis Spherocytes Target Cells Tear Drop Cells Ovalocytes Stomatocytes Acanthocytes (Spur) Schistocytes PT INR VBG pH VBG pCO2 VBG pO2 VBG HCO3 VBG O2 Saturation VBG Base Excess Sodium Potassium Chloride Carbon Dioxide Anion Gap 19 BUN Cancelled 56 H Creatinine Cancelled 5.52 H* Estim Creat Clear Calc Cancelled Estimated GFR POC Glucose Random Glucose Lactic Acid Lactic Acid F/U @ 2Hr Lactic Acid F/U @ 4Hr Calcium Phosphorus Magnesium Total Bilirubin AST ALT Alkaline Phosphatase Troponin I High Sens Total Protein Albumin Random Cortisol Random Vancomycin Salicylates Acetaminophen Blood Type Antibody Screen 06/22/24 06/22/24 06/22/24 05:27 05:27 05:27 WBC RBC Hgb Hct MCV MCH MCHC RDW Plt Count MPV Immature Gran % (Auto) Neut % (Auto) Lymph % (Auto) [place] % (Auto) Eos % (Auto) Baso % (Auto) Lymph # (Auto) [place] # (Auto) Eos # (Auto) Baso # (Auto) Abs Immat Gran (auto) Absolute Neuts (auto) Absolute Nucleated RBC Nucleated RBC % (auto) Neutrophils % (Manual) Band Neutrophils % Lymphocytes % (Manual) Monocytes % (Manual) Metamyelocytes % Myelocytes % Abs Neuts (Manual) Lymphocytes # (Manual) Monocytes # (Manual) Metamyelocytes # Myelocytes # Nucleated RBCs Toxic Vacuolation Platelet Estimate Large Platelets Plt Morphology Comment RBC Morphology Polychromasia Hypochromasia Basophilic Stippling Microcytosis Macrocytosis Spherocytes Target Cells Tear Drop Cells Ovalocytes Stomatocytes Acanthocytes (Spur) Schistocytes PT INR VBG pH VBG pCO2 VBG pO2 VBG HCO3 VBG O2 Saturation VBG Base Excess Sodium Potassium Chloride Carbon Dioxide Anion Gap BUN Creatinine Estim Creat Clear Calc 16.6 Estimated GFR Cancelled 8 POC Glucose Random Glucose Cancelled 96 Lactic Acid Lactic Acid F/U @ 2Hr Lactic Acid F/U @ 4Hr Calcium Cancelled Phosphorus Magnesium Total Bilirubin AST ALT Alkaline Phosphatase Troponin I High Sens Total Protein Albumin Random Cortisol Random Vancomycin Salicylates Acetaminophen Blood Type Antibody Screen 06/22/24 06/22/24 06/22/24 05:27 05:31 07:29 WBC RBC Hgb Hct MCV MCH MCHC RDW Plt Count MPV Immature Gran % (Auto) Neut % (Auto) Lymph % (Auto) [place] % (Auto) Eos % (Auto) Baso % (Auto) Lymph # (Auto) [place] # (Auto) Eos # (Auto) Baso # (Auto) Abs Immat Gran (auto) Absolute Neuts (auto) Absolute Nucleated RBC Nucleated RBC % (auto) Neutrophils % (Manual) Band Neutrophils % Lymphocytes % (Manual) Monocytes % (Manual) Metamyelocytes % Myelocytes % Abs Neuts (Manual) Lymphocytes # (Manual) Monocytes # (Manual) Metamyelocytes # Myelocytes # Nucleated RBCs Toxic Vacuolation Platelet Estimate Large Platelets Plt Morphology Comment RBC Morphology Polychromasia Hypochromasia Basophilic Stippling Microcytosis Macrocytosis Spherocytes Target Cells Tear Drop Cells Ovalocytes Stomatocytes Acanthocytes (Spur) Schistocytes PT INR VBG pH 7.45 H VBG pCO2 29 VBG pO2 67 VBG HCO3 20 L VBG O2 Saturation 95.0 VBG Base Excess -2.2 Sodium Potassium Chloride Carbon Dioxide Anion Gap BUN Creatinine Estim Creat Clear Calc Estimated GFR POC Glucose 105 Random Glucose Lactic Acid Lactic Acid F/U @ 2Hr Lactic Acid F/U @ 4Hr Calcium 8.2 L Phosphorus 5.7 H Magnesium 2.1 Total Bilirubin 4.1 H AST 269 H ALT 89 H Alkaline Phosphatase 256 H Troponin I High Sens Total Protein 6.7 Albumin 3.2 L Random Cortisol 22.8 Random Vancomycin Salicylates < 5.0 L Acetaminophen < 3 Blood Type Antibody Screen 06/22/24 06/22/24 06/22/24 09:30 11:30 11:56 WBC RBC Hgb Hct MCV MCH MCHC RDW Plt Count MPV Immature Gran % (Auto) Neut % (Auto) Lymph % (Auto) [place] % (Auto) Eos % (Auto) Baso % (Auto) Lymph # (Auto) [place] # (Auto) Eos # (Auto) Baso # (Auto) Abs Immat Gran (auto) Absolute Neuts (auto) Absolute Nucleated RBC Nucleated RBC % (auto) Neutrophils % (Manual) Band Neutrophils % Lymphocytes % (Manual) Monocytes % (Manual) Metamyelocytes % Myelocytes % Abs Neuts (Manual) Lymphocytes # (Manual) Monocytes # (Manual) Metamyelocytes # Myelocytes # Nucleated RBCs Toxic Vacuolation Platelet Estimate Large Platelets Plt Morphology Comment RBC Morphology Polychromasia Hypochromasia Basophilic Stippling Microcytosis Macrocytosis Spherocytes Target Cells Tear Drop Cells Ovalocytes Stomatocytes Acanthocytes (Spur) Schistocytes PT INR VBG pH VBG pCO2 VBG pO2 VBG HCO3 VBG O2 Saturation VBG Base Excess Sodium Potassium Chloride Carbon Dioxide Anion Gap BUN Creatinine Estim Creat Clear Calc Estimated GFR POC Glucose 103 Random Glucose Lactic Acid 2.2 H* Lactic Acid F/U @ 2Hr 2.5 H* Lactic Acid F/U @ 4Hr Calcium Phosphorus Magnesium Total Bilirubin AST ALT Alkaline Phosphatase Troponin I High Sens Total Protein Albumin Random Cortisol Random Vancomycin Salicylates Acetaminophen Blood Type Antibody Screen 06/22/24 06/22/24 06/22/24 14:25 16:26 21:28 WBC RBC Hgb Hct MCV MCH MCHC RDW Plt Count MPV Immature Gran % (Auto) Neut % (Auto) Lymph % (Auto) [place] % (Auto) Eos % (Auto) Baso % (Auto) Lymph # (Auto) [place] # (Auto) Eos # (Auto) Baso # (Auto) Abs Immat Gran (auto) Absolute Neuts (auto) Absolute Nucleated RBC Nucleated RBC % (auto) Neutrophils % (Manual) Band Neutrophils % Lymphocytes % (Manual) Monocytes % (Manual) Metamyelocytes % Myelocytes % Abs Neuts (Manual) Lymphocytes # (Manual) Monocytes # (Manual) Metamyelocytes # Myelocytes # Nucleated RBCs Toxic Vacuolation Platelet Estimate Large Platelets Plt Morphology Comment RBC Morphology Polychromasia Hypochromasia Basophilic Stippling Microcytosis Macrocytosis Spherocytes Target Cells Tear Drop Cells Ovalocytes Stomatocytes Acanthocytes (Spur) Schistocytes PT INR VBG pH VBG pCO2 VBG pO2 VBG HCO3 VBG O2 Saturation VBG Base Excess Sodium Potassium Chloride Carbon Dioxide Anion Gap BUN Creatinine Estim Creat Clear Calc Estimated GFR POC Glucose 111 115 Random Glucose Lactic Acid Lactic Acid F/U @ 2Hr Lactic Acid F/U @ 4Hr 2.6 H* Calcium Phosphorus Magnesium Total Bilirubin AST ALT Alkaline Phosphatase Troponin I High Sens Total Protein Albumin Random Cortisol Random Vancomycin Salicylates Acetaminophen Blood Type Antibody Screen 06/22/24 06/22/24 06/22/24 21:40 21:45 21:58 WBC 30.4 H* RBC 3.61 L Hgb 7.9 L Hct 24.1 L MCV 66.8 L MCH 21.9 L MCHC 32.8 RDW 24.8 H Plt Count 336 MPV 10.0 Immature Gran % (Auto) Cancelled Neut % (Auto) Cancelled Lymph % (Auto) Cancelled [place] % (Auto) Cancelled Eos % (Auto) Cancelled Baso % (Auto) Cancelled Lymph # (Auto) Cancelled [place] # (Auto) Cancelled Eos # (Auto) Cancelled Baso # (Auto) Cancelled Abs Immat Gran (auto) Cancelled Absolute Neuts (auto) Cancelled Absolute Nucleated RBC 0.510 H Nucleated RBC % (auto) 1.7 H Neutrophils % (Manual) 76 H Band Neutrophils % 1 L Lymphocytes % (Manual) 6 L Monocytes % (Manual) 12 H Metamyelocytes % 3 Myelocytes % 2 Abs Neuts (Manual) 23.4 H Lymphocytes # (Manual) 1.8 Monocytes # (Manual) 3.6 H Metamyelocytes # 0.9 Myelocytes # 0.6 Nucleated RBCs 6 H Toxic Vacuolation Platelet Estimate NORMAL Large Platelets Plt Morphology Comment NORMAL RBC Morphology NOTED Polychromasia Hypochromasia Basophilic Stippling Microcytosis Macrocytosis Spherocytes Target Cells Tear Drop Cells Ovalocytes 1+ (5-14) Stomatocytes Acanthocytes (Spur) Schistocytes PT INR VBG pH 7.34 VBG pCO2 45 VBG pO2 63 VBG HCO3 24 VBG O2 Saturation 88.0 VBG Base Excess -0.9 Sodium 135 Potassium 4.4 Chloride 98 Carbon Dioxide 19 L Anion Gap 22 H BUN 45 H Creatinine 4.78 H* Estim Creat Clear Calc 19.1 Estimated GFR 9 POC Glucose 116 H Random Glucose 113 Lactic Acid Lactic Acid F/U @ 2Hr Lactic Acid F/U @ 4Hr Calcium 8.3 L Phosphorus 4.7 H Magnesium 2.0 Total Bilirubin AST ALT Alkaline Phosphatase Troponin I High Sens Total Protein Albumin 3.3 L Random Cortisol Random Vancomycin Salicylates Acetaminophen Blood Type Antibody Screen 06/23/24 06/23/24 06/23/24 03:54 03:59 06:25 WBC 27.3 H RBC 3.55 L Hgb 7.8 L Hct 23.7 L MCV 66.8 L MCH 22.0 L MCHC 32.9 RDW 24.4 H Plt Count 301 MPV 9.8 Immature Gran % (Auto) Cancelled Neut % (Auto) Cancelled Lymph % (Auto) Cancelled [place] % (Auto) Cancelled Eos % (Auto) Cancelled Baso % (Auto) Cancelled Lymph # (Auto) Cancelled [place] # (Auto) Cancelled Eos # (Auto) Cancelled Baso # (Auto) Cancelled Abs Immat Gran (auto) Cancelled Absolute Neuts (auto) Cancelled Absolute Nucleated RBC 0.350 H Nucleated RBC % (auto) 1.3 H Neutrophils % (Manual) 77 H Band Neutrophils % 5 Lymphocytes % (Manual) 6 L Monocytes % (Manual) 7 Metamyelocytes % 3 Myelocytes % 2 Abs Neuts (Manual) 22.4 H Lymphocytes # (Manual) 1.6 Monocytes # (Manual) 1.9 H Metamyelocytes # 0.8 Myelocytes # 0.5 Nucleated RBCs 3 H Toxic Vacuolation PRESENT Platelet Estimate NORMAL Large Platelets Plt Morphology Comment NORMAL RBC Morphology NOTED Polychromasia 1+ (0-2) Hypochromasia 1+ (5-14) Basophilic Stippling Microcytosis 2+ (15-30) Macrocytosis Spherocytes 1+ (0-2) Target Cells 2+ (15-30) Tear Drop Cells Ovalocytes 1+ (5-14) Stomatocytes Acanthocytes (Spur) Schistocytes 1+ (0-2) PT INR VBG pH 7.35 VBG pCO2 36 VBG pO2 67 VBG HCO3 20 L VBG O2 Saturation 90.0 VBG Base Excess -4.5 Sodium 136 Potassium 4.5 Chloride 98 Carbon Dioxide 18 L Anion Gap 25 H BUN 52 H Creatinine 5.29 H* Estim Creat Clear Calc 17.3 Estimated GFR 8 POC Glucose Random Glucose 118 H Lactic Acid 3.8 H* Lactic Acid F/U @ 2Hr 4.0 H* Lactic Acid F/U @ 4Hr Calcium 8.3 L Phosphorus 4.9 H Magnesium 2.0 Total Bilirubin 5.0 H AST 215 H ALT 79 H Alkaline Phosphatase 240 H Troponin I High Sens 972.3 H* Total Protein 6.7 Albumin 3.0 L Random Cortisol Random Vancomycin Salicylates Acetaminophen Blood Type Antibody Screen 06/23/24 06/23/24 06/23/24 08:15 09:54 21:10 WBC 36.0 H* RBC 3.54 L Hgb 7.8 L Hct 23.9 L MCV 67.5 L MCH 22.0 L MCHC 32.6 RDW 25.2 H Plt Count 331 MPV 10.0 Immature Gran % (Auto) Cancelled Neut % (Auto) Cancelled Lymph % (Auto) Cancelled [place] % (Auto) Cancelled Eos % (Auto) Cancelled Baso % (Auto) Cancelled Lymph # (Auto) Cancelled [place] # (Auto) Cancelled Eos # (Auto) Cancelled Baso # (Auto) Cancelled Abs Immat Gran (auto) Cancelled Absolute Neuts (auto) Cancelled Absolute Nucleated RBC 0.700 H Nucleated RBC % (auto) 1.9 H Neutrophils % (Manual) 73 Band Neutrophils % 7 H Lymphocytes % (Manual) 10 L Monocytes % (Manual) 7 Metamyelocytes % 3 Myelocytes % Abs Neuts (Manual) 28.8 H Lymphocytes # (Manual) 3.6 Monocytes # (Manual) 2.5 H Metamyelocytes # 1.1 Myelocytes # Nucleated RBCs 3 H Toxic Vacuolation Platelet Estimate NORMAL Large Platelets Plt Morphology Comment NORMAL RBC Morphology NOTED Polychromasia Hypochromasia Basophilic Stippling 1+ (0-2) Microcytosis Macrocytosis 1+ (5-14) Spherocytes Target Cells 1+ (5-14) Tear Drop Cells Ovalocytes Stomatocytes Acanthocytes (Spur) 1+ (0-2) Schistocytes PT INR VBG pH VBG pCO2 VBG pO2 VBG HCO3 VBG O2 Saturation VBG Base Excess Sodium 137 Potassium 4.5 Chloride 96 Carbon Dioxide 17 L Anion Gap 29 H BUN 37 H Creatinine 4.27 H* Estim Creat Clear Calc 21.4 Estimated GFR 11 POC Glucose 111 Random Glucose 91 Lactic Acid Lactic Acid F/U @ 2Hr Lactic Acid F/U @ 4Hr 3.8 H* Calcium 8.6 Phosphorus 5.1 H Magnesium 2.2 Total Bilirubin AST ALT Alkaline Phosphatase Troponin I High Sens 1189.6 H* Total Protein Albumin Random Cortisol Random Vancomycin Salicylates Acetaminophen Blood Type Antibody Screen 06/25/24 06/25/24 06/26/24 17:32 17:55 00:13 WBC RBC Hgb Hct MCV MCH MCHC RDW Plt Count MPV Immature Gran % (Auto) Neut % (Auto) Lymph % (Auto) [place] % (Auto) Eos % (Auto) Baso % (Auto) Lymph # (Auto) [place] # (Auto) Eos # (Auto) Baso # (Auto) Abs Immat Gran (auto) Absolute Neuts (auto) Absolute Nucleated RBC Nucleated RBC % (auto) Neutrophils % (Manual) Band Neutrophils % Lymphocytes % (Manual) Monocytes % (Manual) Metamyelocytes % Myelocytes % Abs Neuts (Manual) Lymphocytes # (Manual) Monocytes # (Manual) Metamyelocytes # Myelocytes # Nucleated RBCs Toxic Vacuolation Platelet Estimate Large Platelets Plt Morphology Comment RBC Morphology Polychromasia Hypochromasia Basophilic Stippling Microcytosis Macrocytosis Spherocytes Target Cells Tear Drop Cells Ovalocytes Stomatocytes Acanthocytes (Spur) Schistocytes PT INR VBG pH VBG pCO2 VBG pO2 VBG HCO3 VBG O2 Saturation VBG Base Excess Sodium Potassium Chloride Carbon Dioxide Anion Gap BUN Creatinine Estim Creat Clear Calc Estimated GFR POC Glucose 104 96 Random Glucose Lactic Acid Lactic Acid F/U @ 2Hr Lactic Acid F/U @ 4Hr Calcium Phosphorus Magnesium Total Bilirubin AST ALT Alkaline Phosphatase Troponin I High Sens Total Protein Albumin Random Cortisol Random Vancomycin 18.7 Salicylates Acetaminophen Blood Type Antibody Screen 06/26/24 06/26/24 06/26/24 05:12 05:13 10:15 WBC 35.3 H* RBC 3.36 L Hgb 7.5 L Hct 24.1 L MCV 71.7 L MCH 22.3 L MCHC 31.1 RDW 25.7 H Plt Count 234 MPV 10.6 Immature Gran % (Auto) Cancelled Neut % (Auto) Cancelled Lymph % (Auto) Cancelled [place] % (Auto) Cancelled Eos % (Auto) Cancelled Baso % (Auto) Cancelled Lymph # (Auto) Cancelled [place] # (Auto) Cancelled Eos # (Auto) Cancelled Baso # (Auto) Cancelled Abs Immat Gran (auto) Cancelled Absolute Neuts (auto) Cancelled Absolute Nucleated RBC 0.580 H Nucleated RBC % (auto) 1.6 H Neutrophils % (Manual) 77 H Band Neutrophils % 5 Lymphocytes % (Manual) 4 L Monocytes % (Manual) 8 Metamyelocytes % 4 Myelocytes % 2 Abs Neuts (Manual) 28.9 H Lymphocytes # (Manual) 1.4 Monocytes # (Manual) 2.8 H Metamyelocytes # 1.4 Myelocytes # 0.7 Nucleated RBCs 7 H Toxic Vacuolation PRESENT Platelet Estimate NORMAL Large Platelets PRESENT Plt Morphology Comment NOTED RBC Morphology NOTED Polychromasia Hypochromasia 2+ (15-30) Basophilic Stippling Microcytosis 2+ (15-30) Macrocytosis Spherocytes Target Cells 2+ (15-30) Tear Drop Cells 1+ (0-2) Ovalocytes 1+ (5-14) Stomatocytes 1+ (5-14) Acanthocytes (Spur) 1+ (0-2) Schistocytes 1+ (0-2) PT 26.3 H D INR 2.3 H VBG pH 7.39 VBG pCO2 47 VBG pO2 52 VBG HCO3 29 H VBG O2 Saturation 72.0 VBG Base Excess 4.1 Sodium 136 Potassium 4.7 Chloride 89 L Carbon Dioxide 21 L Anion Gap 31 H BUN 41 H Creatinine 5.49 H* Estim Creat Clear Calc 16.7 Estimated GFR 8 POC Glucose Random Glucose 88 Lactic Acid Lactic Acid F/U @ 2Hr Lactic Acid F/U @ 4Hr Calcium 8.2 L Phosphorus 6.1 H Magnesium 2.1 Total Bilirubin 6.9 H AST 1285 H ALT 231 H Alkaline Phosphatase 188 H Troponin I High Sens Total Protein 6.8 Albumin 2.9 L Random Cortisol Random Vancomycin 17.8 Salicylates Acetaminophen Blood Type B Positive Antibody Screen NEGATIVE 06/26/24 11:16 WBC RBC Hgb Hct MCV MCH MCHC RDW Plt Count MPV Immature Gran % (Auto) Neut % (Auto) Lymph % (Auto) [place] % (Auto) Eos % (Auto) Baso % (Auto) Lymph # (Auto) [place] # (Auto) Eos # (Auto) Baso # (Auto) Abs Immat Gran (auto) Absolute Neuts (auto) Absolute Nucleated RBC Nucleated RBC % (auto) Neutrophils % (Manual) Band Neutrophils % Lymphocytes % (Manual) Monocytes % (Manual) Metamyelocytes % Myelocytes % Abs Neuts (Manual) Lymphocytes # (Manual) Monocytes # (Manual) Metamyelocytes # Myelocytes # Nucleated RBCs Toxic Vacuolation Platelet Estimate Large Platelets Plt Morphology Comment RBC Morphology Polychromasia Hypochromasia Basophilic Stippling Microcytosis Macrocytosis Spherocytes Target Cells Tear Drop Cells Ovalocytes Stomatocytes Acanthocytes (Spur) Schistocytes PT INR VBG pH VBG pCO2 VBG pO2 VBG HCO3 VBG O2 Saturation VBG Base Excess Sodium Potassium Chloride Carbon Dioxide Anion Gap BUN Creatinine Estim Creat Clear Calc Estimated GFR POC Glucose 131 H Random Glucose Lactic Acid Lactic Acid F/U @ 2Hr Lactic Acid F/U @ 4Hr Calcium Phosphorus Magnesium Total Bilirubin AST ALT Alkaline Phosphatase Troponin I High Sens Total Protein Albumin Random Cortisol Random Vancomycin Salicylates Acetaminophen Blood Type Antibody Screen Microbiology Microbiology Results: Microbiology 06/26/24 09:18 Trachea Gram Stain - Final 06/24/24 19:04 Blood - Venous Blood Culture - Preliminary No growth after 24 hours. 06/24/24 19:04 Blood - Venous Blood Culture - Preliminary No growth after 24 hours. 06/23/24 03:59 Blood - Venous Blood Culture - Preliminary No growth after 48 hours. 06/23/24 05:30 Blood - Venous Blood Culture - Preliminary No growth after 48 hours. 06/18/24 15:26 Blood - Venous Blood Culture - Final No growth after 5 days. 06/18/24 15:26 Blood - Venous Blood Culture - Final No growth after 5 days. 06/18/24 20:10 Urine clean catch - Clean Catch Midstream Urine Culture - Final Progress Note: A&P Assessment and plan (1) HTN (hypertension): Status: Acute (2) Afib: Status: Acute (3) Acute respiratory failure: Status: Acute (4) Asthma: Status: Acute (5) JAYSON (acute kidney injury): Status: Acute (6) Shock: Status: Acute Plan Neuro: Acute encephalopathy possibly due to metabolic encephalopathy On propofol for sedation, as needed fentanyl for analgesia; Precedex added to switch with fentanyl. Weaning propofol down for weaning trials Close neurological status monitoring in the ICU every hour Cardiac: Shock: Possibly secondary to severe sepsis On Levophed support, titrate Levophed to keep map above 65 mm Hg Atrial fibrillation with RVR: Currently on amiodarone drip, we will give amiodarone boluses to convert her to sinus Can not be on rate control medication due to hypotension We will switch from Levophed to phenylephrine Heparin for anticoagulation TTE showed normal LV systolic function, hyperdynamic LV, mild pulmonary hypertension Respiratory: Acute hypoxemic respiratory failure due to bilateral pneumonia Currently on ventilator support On PRVC mode FiO2 40, PEEP 5, TV 360, RR 20. Post dialysis we will wean the sedation and once the mental status is better we will place the patient on pressor support for weaning trials Peak pressures and plateau pressures are under the curve Ventilator management bundle with head end elevation, aspiration precaution, chlorhexidine mouthwash, daily awakening trials, daily spontaneous breathing trials GI: Worsening transaminitis: Possibly secondary to multiorgan failure from severe sepsis versus tumor infiltration Hepatitis panel negative CT abdomen shows diffuse hepatic metastasis Bowel hernia: Patient has significant ventral hernia containing bowel loops. General surgery involved, opined for conservative management for now given severity of illness CTA abdomen and pelvis showed ventral hernia with no definite evidence of ischemia. Renal: Acute kidney injury possibly secondary to ATN versus tumor infiltration kidney Complement levels and ANCA normal Currently on renal replacement therapy, received a session of dialysis this morning We will closely monitor I's and O's Avoid nephrotoxic medications Heme: Chronic anemia, closely monitor H&H, transfuse for hemoglobin less than 7 grams/deciliter Leukocytosis: Secondary to hematological malignancy versus infection Endocrine: Blood sugars under control Sliding scale insulin as needed Hypothyroidism: Continue levothyroxine Infectious disease: Pancultures negative so far On broad-spectrum empiric coverage including vancomycin, cefepime, Flagyl We will add fluconazole for antifungal coverage as patient has persistent multiorgan failure despite being on multiple antibiotics We will send procalcitonin levels Musculoskeletal: Decubitus ulcer prevention protocol Lines: hemodialysis catheter Prophylaxis: heparin, famotidine Critical care time spent is about 45 minutes as this patient has multiple organ failures needing multiple drips. Critical time spent is mainly on ventilator management, changing ventilator settings, sedation management, vasopressor management, close hemodynamic monitoring, management episodes of atrial fibrillation with RVR, review of labs and images at this time is excluding any procedural time Quality Stroke Does the patient have a stroke diagnosis?: No VTE Prior VTE?: No VTE Risk Level:: Medical - moderate - high VTE Device Contraindication: N/A - Device Ordered VTE Drug Contraindication: Treatment Not Indicated
[2024-06-26] MEDS: Phenylephrine HCL 100 MG in 0.9 % Sodium Chloride 250 ML 49.95 MG IVCONT (16:13)
[2024-06-26] MEDS: cefEPime HCl 1 GM in 0.9 % Sodium Chloride 50 ML IV (17:08)
[2024-06-26 17:09] LABS: Glucose, Whole Blood 91 mg/dL (60-115)
[2024-06-26 17:34] LABS: Procalcitonin 11.42 ng/mL
[2024-06-26] MEDS: vancomycin HCL 500 MG in 0.9 % Sodium Chloride 100 ML 110 MG IV (19:33)
--- NOTE | 2024-06-26 19:35 | P.PNNP_ITS ---
Subjective Subjective Date of Service: 06/26/24 Interval history: Has worsening leukocytosis and pressor requirements. Cultures redrawn. Antibiotic coverage broadened. Cultures are negative to date. Had HD this AM Physical Exam 2 Vital Signs: Vital Signs: Last Vital Signs Temp 101.2 F H 06/26/24 17:51 Pulse 71 06/26/24 19:26 Resp 21 H 06/26/24 18:55 BP 131/57 L 06/26/24 19:26 Pulse Ox 97 06/26/24 19:22 O2 Del Method Mechanical Ventil ation 06/26/24 18:55 O2 Flow Rate 15 06/24/24 20:00 FiO2 45 06/26/24 19:22 BMI result Body Mass Index 58.7 Const: General: no acute distress Neck: Neck: Yes supple Resp: Auscultation: diminished lung sounds Cardio: Rate: regular rate GI: Palpation (GI): Soft to palpation Neuro: Other: Sedated Objective Data Labs 06/26/24 05:12 06/26/24 05:12 Labs: Laboratory Results - last 24 hr 06/22/24 06/22/24 06/22/24 00:30 05:27 05:27 WBC 22.0 H 22.0 H RBC 3.47 L 3.41 L Hgb 7.6 L 7.4 L Hct 23.4 L 23.0 L MCV 67.4 L 67.4 L MCH 21.9 L 21.7 L MCHC 32.5 32.2 RDW 24.1 H 23.9 H Plt Count 306 293 MPV 10.4 10.7 Immature Gran % (Auto) Neut % (Auto) Lymph % (Auto) [place] % (Auto) Eos % (Auto) Baso % (Auto) Lymph # (Auto) [place] # (Auto) Eos # (Auto) Baso # (Auto) Abs Immat Gran (auto) Absolute Neuts (auto) Absolute Nucleated RBC 0.090 H 0.090 H Nucleated RBC % (auto) 0.4 H 0.4 H Neutrophils % (Manual) Band Neutrophils % Lymphocytes % (Manual) Monocytes % (Manual) Metamyelocytes % Myelocytes % Abs Neuts (Manual) Lymphocytes # (Manual) Monocytes # (Manual) Metamyelocytes # Myelocytes # Nucleated RBCs Toxic Vacuolation Platelet Estimate Large Platelets Plt Morphology Comment RBC Morphology Polychromasia Hypochromasia Basophilic Stippling Microcytosis Macrocytosis Spherocytes Target Cells Tear Drop Cells Ovalocytes Stomatocytes Acanthocytes (Spur) Schistocytes PT INR VBG pH 7.31 L VBG pCO2 44 VBG pO2 70 VBG HCO3 22 VBG O2 Saturation 93.0 VBG Base Excess -3.3 Sodium 132 L Cancelled 132 L Potassium 5.1 Cancelled Chloride 99 Carbon Dioxide 18 L Anion Gap 20 BUN 53 H Creatinine 5.01 H* Estim Creat Clear Calc 18.3 Estimated GFR 9 POC Glucose Random Glucose 90 Lactic Acid Lactic Acid F/U @ 2Hr Lactic Acid F/U @ 4Hr Calcium 7.9 L D Phosphorus Magnesium Total Bilirubin AST ALT Alkaline Phosphatase Troponin I High Sens Total Protein Albumin Procalcitonin Random Cortisol Random Vancomycin Salicylates Acetaminophen Blood Type Antibody Screen 06/22/24 06/22/24 06/22/24 05:27 05:27 05:27 WBC RBC Hgb Hct MCV MCH MCHC RDW Plt Count MPV Immature Gran % (Auto) Neut % (Auto) Lymph % (Auto) [place] % (Auto) Eos % (Auto) Baso % (Auto) Lymph # (Auto) [place] # (Auto) Eos # (Auto) Baso # (Auto) Abs Immat Gran (auto) Absolute Neuts (auto) Absolute Nucleated RBC Nucleated RBC % (auto) Neutrophils % (Manual) Band Neutrophils % Lymphocytes % (Manual) Monocytes % (Manual) Metamyelocytes % Myelocytes % Abs Neuts (Manual) Lymphocytes # (Manual) Monocytes # (Manual) Metamyelocytes # Myelocytes # Nucleated RBCs Toxic Vacuolation Platelet Estimate Large Platelets Plt Morphology Comment RBC Morphology Polychromasia Hypochromasia Basophilic Stippling Microcytosis Macrocytosis Spherocytes Target Cells Tear Drop Cells Ovalocytes Stomatocytes Acanthocytes (Spur) Schistocytes PT INR VBG pH VBG pCO2 VBG pO2 VBG HCO3 VBG O2 Saturation VBG Base Excess Sodium Potassium 4.9 Chloride Cancelled 98 Carbon Dioxide Cancelled 20 L Anion Gap Cancelled BUN Creatinine Estim Creat Clear Calc Estimated GFR POC Glucose Random Glucose Lactic Acid Lactic Acid F/U @ 2Hr Lactic Acid F/U @ 4Hr Calcium Phosphorus Magnesium Total Bilirubin AST ALT Alkaline Phosphatase Troponin I High Sens Total Protein Albumin Procalcitonin Random Cortisol Random Vancomycin Salicylates Acetaminophen Blood Type Antibody Screen 06/22/24 06/22/24 06/22/24 05:27 05:27 05:27 WBC RBC Hgb Hct MCV MCH MCHC RDW Plt Count MPV Immature Gran % (Auto) Neut % (Auto) Lymph % (Auto) [place] % (Auto) Eos % (Auto) Baso % (Auto) Lymph # (Auto) [place] # (Auto) Eos # (Auto) Baso # (Auto) Abs Immat Gran (auto) Absolute Neuts (auto) Absolute Nucleated RBC Nucleated RBC % (auto) Neutrophils % (Manual) Band Neutrophils % Lymphocytes % (Manual) Monocytes % (Manual) Metamyelocytes % Myelocytes % Abs Neuts (Manual) Lymphocytes # (Manual) Monocytes # (Manual) Metamyelocytes # Myelocytes # Nucleated RBCs Toxic Vacuolation Platelet Estimate Large Platelets Plt Morphology Comment RBC Morphology Polychromasia Hypochromasia Basophilic Stippling Microcytosis Macrocytosis Spherocytes Target Cells Tear Drop Cells Ovalocytes Stomatocytes Acanthocytes (Spur) Schistocytes PT INR VBG pH VBG pCO2 VBG pO2 VBG HCO3 VBG O2 Saturation VBG Base Excess Sodium Potassium Chloride Carbon Dioxide Anion Gap 19 BUN Cancelled 56 H Creatinine Cancelled 5.52 H* Estim Creat Clear Calc Cancelled Estimated GFR POC Glucose Random Glucose Lactic Acid Lactic Acid F/U @ 2Hr Lactic Acid F/U @ 4Hr Calcium Phosphorus Magnesium Total Bilirubin AST ALT Alkaline Phosphatase Troponin I High Sens Total Protein Albumin Procalcitonin Random Cortisol Random Vancomycin Salicylates Acetaminophen Blood Type Antibody Screen 06/22/24 06/22/24 06/22/24 05:27 05:27 05:27 WBC RBC Hgb Hct MCV MCH MCHC RDW Plt Count MPV Immature Gran % (Auto) Neut % (Auto) Lymph % (Auto) [place] % (Auto) Eos % (Auto) Baso % (Auto) Lymph # (Auto) [place] # (Auto) Eos # (Auto) Baso # (Auto) Abs Immat Gran (auto) Absolute Neuts (auto) Absolute Nucleated RBC Nucleated RBC % (auto) Neutrophils % (Manual) Band Neutrophils % Lymphocytes % (Manual) Monocytes % (Manual) Metamyelocytes % Myelocytes % Abs Neuts (Manual) Lymphocytes # (Manual) Monocytes # (Manual) Metamyelocytes # Myelocytes # Nucleated RBCs Toxic Vacuolation Platelet Estimate Large Platelets Plt Morphology Comment RBC Morphology Polychromasia Hypochromasia Basophilic Stippling Microcytosis Macrocytosis Spherocytes Target Cells Tear Drop Cells Ovalocytes Stomatocytes Acanthocytes (Spur) Schistocytes PT INR VBG pH VBG pCO2 VBG pO2 VBG HCO3 VBG O2 Saturation VBG Base Excess Sodium Potassium Chloride Carbon Dioxide Anion Gap BUN Creatinine Estim Creat Clear Calc 16.6 Estimated GFR Cancelled 8 POC Glucose Random Glucose Cancelled 96 Lactic Acid Lactic Acid F/U @ 2Hr Lactic Acid F/U @ 4Hr Calcium Cancelled Phosphorus Magnesium Total Bilirubin AST ALT Alkaline Phosphatase Troponin I High Sens Total Protein Albumin Procalcitonin Random Cortisol Random Vancomycin Salicylates Acetaminophen Blood Type Antibody Screen 06/22/24 06/22/24 06/22/24 05:27 05:31 07:29 WBC RBC Hgb Hct MCV MCH MCHC RDW Plt Count MPV Immature Gran % (Auto) Neut % (Auto) Lymph % (Auto) [place] % (Auto) Eos % (Auto) Baso % (Auto) Lymph # (Auto) [place] # (Auto) Eos # (Auto) Baso # (Auto) Abs Immat Gran (auto) Absolute Neuts (auto) Absolute Nucleated RBC Nucleated RBC % (auto) Neutrophils % (Manual) Band Neutrophils % Lymphocytes % (Manual) Monocytes % (Manual) Metamyelocytes % Myelocytes % Abs Neuts (Manual) Lymphocytes # (Manual) Monocytes # (Manual) Metamyelocytes # Myelocytes # Nucleated RBCs Toxic Vacuolation Platelet Estimate Large Platelets Plt Morphology Comment RBC Morphology Polychromasia Hypochromasia Basophilic Stippling Microcytosis Macrocytosis Spherocytes Target Cells Tear Drop Cells Ovalocytes Stomatocytes Acanthocytes (Spur) Schistocytes PT INR VBG pH 7.45 H VBG pCO2 29 VBG pO2 67 VBG HCO3 20 L VBG O2 Saturation 95.0 VBG Base Excess -2.2 Sodium Potassium Chloride Carbon Dioxide Anion Gap BUN Creatinine Estim Creat Clear Calc Estimated GFR POC Glucose 105 Random Glucose Lactic Acid Lactic Acid F/U @ 2Hr Lactic Acid F/U @ 4Hr Calcium 8.2 L Phosphorus 5.7 H Magnesium 2.1 Total Bilirubin 4.1 H AST 269 H ALT 89 H Alkaline Phosphatase 256 H Troponin I High Sens Total Protein 6.7 Albumin 3.2 L Procalcitonin Random Cortisol 22.8 Random Vancomycin Salicylates < 5.0 L Acetaminophen < 3 Blood Type Antibody Screen 06/22/24 06/22/24 06/22/24 09:30 11:30 11:56 WBC RBC Hgb Hct MCV MCH MCHC RDW Plt Count MPV Immature Gran % (Auto) Neut % (Auto) Lymph % (Auto) [place] % (Auto) Eos % (Auto) Baso % (Auto) Lymph # (Auto) [place] # (Auto) Eos # (Auto) Baso # (Auto) Abs Immat Gran (auto) Absolute Neuts (auto) Absolute Nucleated RBC Nucleated RBC % (auto) Neutrophils % (Manual) Band Neutrophils % Lymphocytes % (Manual) Monocytes % (Manual) Metamyelocytes % Myelocytes % Abs Neuts (Manual) Lymphocytes # (Manual) Monocytes # (Manual) Metamyelocytes # Myelocytes # Nucleated RBCs Toxic Vacuolation Platelet Estimate Large Platelets Plt Morphology Comment RBC Morphology Polychromasia Hypochromasia Basophilic Stippling Microcytosis Macrocytosis Spherocytes Target Cells Tear Drop Cells Ovalocytes Stomatocytes Acanthocytes (Spur) Schistocytes PT INR VBG pH VBG pCO2 VBG pO2 VBG HCO3 VBG O2 Saturation VBG Base Excess Sodium Potassium Chloride Carbon Dioxide Anion Gap BUN Creatinine Estim Creat Clear Calc Estimated GFR POC Glucose 103 Random Glucose Lactic Acid 2.2 H* Lactic Acid F/U @ 2Hr 2.5 H* Lactic Acid F/U @ 4Hr Calcium Phosphorus Magnesium Total Bilirubin AST ALT Alkaline Phosphatase Troponin I High Sens Total Protein Albumin Procalcitonin Random Cortisol Random Vancomycin Salicylates Acetaminophen Blood Type Antibody Screen 06/22/24 06/22/24 06/22/24 14:25 16:26 21:28 WBC RBC Hgb Hct MCV MCH MCHC RDW Plt Count MPV Immature Gran % (Auto) Neut % (Auto) Lymph % (Auto) [place] % (Auto) Eos % (Auto) Baso % (Auto) Lymph # (Auto) [place] # (Auto) Eos # (Auto) Baso # (Auto) Abs Immat Gran (auto) Absolute Neuts (auto) Absolute Nucleated RBC Nucleated RBC % (auto) Neutrophils % (Manual) Band Neutrophils % Lymphocytes % (Manual) Monocytes % (Manual) Metamyelocytes % Myelocytes % Abs Neuts (Manual) Lymphocytes # (Manual) Monocytes # (Manual) Metamyelocytes # Myelocytes # Nucleated RBCs Toxic Vacuolation Platelet Estimate Large Platelets Plt Morphology Comment RBC Morphology Polychromasia Hypochromasia Basophilic Stippling Microcytosis Macrocytosis Spherocytes Target Cells Tear Drop Cells Ovalocytes Stomatocytes Acanthocytes (Spur) Schistocytes PT INR VBG pH VBG pCO2 VBG pO2 VBG HCO3 VBG O2 Saturation VBG Base Excess Sodium Potassium Chloride Carbon Dioxide Anion Gap BUN Creatinine Estim Creat Clear Calc Estimated GFR POC Glucose 111 115 Random Glucose Lactic Acid Lactic Acid F/U @ 2Hr Lactic Acid F/U @ 4Hr 2.6 H* Calcium Phosphorus Magnesium Total Bilirubin AST ALT Alkaline Phosphatase Troponin I High Sens Total Protein Albumin Procalcitonin Random Cortisol Random Vancomycin Salicylates Acetaminophen Blood Type Antibody Screen 06/22/24 06/22/24 06/22/24 21:40 21:45 21:58 WBC 30.4 H* RBC 3.61 L Hgb 7.9 L Hct 24.1 L MCV 66.8 L MCH 21.9 L MCHC 32.8 RDW 24.8 H Plt Count 336 MPV 10.0 Immature Gran % (Auto) Cancelled Neut % (Auto) Cancelled Lymph % (Auto) Cancelled [place] % (Auto) Cancelled Eos % (Auto) Cancelled Baso % (Auto) Cancelled Lymph # (Auto) Cancelled [place] # (Auto) Cancelled Eos # (Auto) Cancelled Baso # (Auto) Cancelled Abs Immat Gran (auto) Cancelled Absolute Neuts (auto) Cancelled Absolute Nucleated RBC 0.510 H Nucleated RBC % (auto) 1.7 H Neutrophils % (Manual) 76 H Band Neutrophils % 1 L Lymphocytes % (Manual) 6 L Monocytes % (Manual) 12 H Metamyelocytes % 3 Myelocytes % 2 Abs Neuts (Manual) 23.4 H Lymphocytes # (Manual) 1.8 Monocytes # (Manual) 3.6 H Metamyelocytes # 0.9 Myelocytes # 0.6 Nucleated RBCs 6 H Toxic Vacuolation Platelet Estimate NORMAL Large Platelets Plt Morphology Comment NORMAL RBC Morphology NOTED Polychromasia Hypochromasia Basophilic Stippling Microcytosis Macrocytosis Spherocytes Target Cells Tear Drop Cells Ovalocytes 1+ (5-14) Stomatocytes Acanthocytes (Spur) Schistocytes PT INR VBG pH 7.34 VBG pCO2 45 VBG pO2 63 VBG HCO3 24 VBG O2 Saturation 88.0 VBG Base Excess -0.9 Sodium 135 Potassium 4.4 Chloride 98 Carbon Dioxide 19 L Anion Gap 22 H BUN 45 H Creatinine 4.78 H* Estim Creat Clear Calc 19.1 Estimated GFR 9 POC Glucose 116 H Random Glucose 113 Lactic Acid Lactic Acid F/U @ 2Hr Lactic Acid F/U @ 4Hr Calcium 8.3 L Phosphorus 4.7 H Magnesium 2.0 Total Bilirubin AST ALT Alkaline Phosphatase Troponin I High Sens Total Protein Albumin 3.3 L Procalcitonin Random Cortisol Random Vancomycin Salicylates Acetaminophen Blood Type Antibody Screen 06/23/24 06/23/24 06/23/24 03:54 03:59 06:25 WBC 27.3 H RBC 3.55 L Hgb 7.8 L Hct 23.7 L MCV 66.8 L MCH 22.0 L MCHC 32.9 RDW 24.4 H Plt Count 301 MPV 9.8 Immature Gran % (Auto) Cancelled Neut % (Auto) Cancelled Lymph % (Auto) Cancelled [place] % (Auto) Cancelled Eos % (Auto) Cancelled Baso % (Auto) Cancelled Lymph # (Auto) Cancelled [place] # (Auto) Cancelled Eos # (Auto) Cancelled Baso # (Auto) Cancelled Abs Immat Gran (auto) Cancelled Absolute Neuts (auto) Cancelled Absolute Nucleated RBC 0.350 H Nucleated RBC % (auto) 1.3 H Neutrophils % (Manual) 77 H Band Neutrophils % 5 Lymphocytes % (Manual) 6 L Monocytes % (Manual) 7 Metamyelocytes % 3 Myelocytes % 2 Abs Neuts (Manual) 22.4 H Lymphocytes # (Manual) 1.6 Monocytes # (Manual) 1.9 H Metamyelocytes # 0.8 Myelocytes # 0.5 Nucleated RBCs 3 H Toxic Vacuolation PRESENT Platelet Estimate NORMAL Large Platelets Plt Morphology Comment NORMAL RBC Morphology NOTED Polychromasia 1+ (0-2) Hypochromasia 1+ (5-14) Basophilic Stippling Microcytosis 2+ (15-30) Macrocytosis Spherocytes 1+ (0-2) Target Cells 2+ (15-30) Tear Drop Cells Ovalocytes 1+ (5-14) Stomatocytes Acanthocytes (Spur) Schistocytes 1+ (0-2) PT INR VBG pH 7.35 VBG pCO2 36 VBG pO2 67 VBG HCO3 20 L VBG O2 Saturation 90.0 VBG Base Excess -4.5 Sodium 136 Potassium 4.5 Chloride 98 Carbon Dioxide 18 L Anion Gap 25 H BUN 52 H Creatinine 5.29 H* Estim Creat Clear Calc 17.3 Estimated GFR 8 POC Glucose Random Glucose 118 H Lactic Acid 3.8 H* Lactic Acid F/U @ 2Hr 4.0 H* Lactic Acid F/U @ 4Hr Calcium 8.3 L Phosphorus 4.9 H Magnesium 2.0 Total Bilirubin 5.0 H AST 215 H ALT 79 H Alkaline Phosphatase 240 H Troponin I High Sens 972.3 H* Total Protein 6.7 Albumin 3.0 L Procalcitonin Random Cortisol Random Vancomycin Salicylates Acetaminophen Blood Type Antibody Screen 06/23/24 06/23/24 06/23/24 08:15 09:54 11:39 WBC RBC Hgb Hct MCV MCH MCHC RDW Plt Count MPV Immature Gran % (Auto) Neut % (Auto) Lymph % (Auto) [place] % (Auto) Eos % (Auto) Baso % (Auto) Lymph # (Auto) [place] # (Auto) Eos # (Auto) Baso # (Auto) Abs Immat Gran (auto) Absolute Neuts (auto) Absolute Nucleated RBC Nucleated RBC % (auto) Neutrophils % (Manual) Band Neutrophils % Lymphocytes % (Manual) Monocytes % (Manual) Metamyelocytes % Myelocytes % Abs Neuts (Manual) Lymphocytes # (Manual) Monocytes # (Manual) Metamyelocytes # Myelocytes # Nucleated RBCs Toxic Vacuolation Platelet Estimate Large Platelets Plt Morphology Comment RBC Morphology Polychromasia Hypochromasia Basophilic Stippling Microcytosis Macrocytosis Spherocytes Target Cells Tear Drop Cells Ovalocytes Stomatocytes Acanthocytes (Spur) Schistocytes PT INR VBG pH VBG pCO2 VBG pO2 VBG HCO3 VBG O2 Saturation VBG Base Excess Sodium Potassium Chloride Carbon Dioxide Anion Gap BUN Creatinine Estim Creat Clear Calc Estimated GFR POC Glucose 111 103 Random Glucose Lactic Acid Lactic Acid F/U @ 2Hr Lactic Acid F/U @ 4Hr 3.8 H* Calcium Phosphorus Magnesium Total Bilirubin AST ALT Alkaline Phosphatase Troponin I High Sens 1189.6 H* Total Protein Albumin Procalcitonin Random Cortisol Random Vancomycin Salicylates Acetaminophen Blood Type Antibody Screen 06/23/24 06/23/24 06/23/24 17:36 21:10 21:15 WBC 36.0 H* RBC 3.54 L Hgb 7.8 L Hct 23.9 L MCV 67.5 L MCH 22.0 L MCHC 32.6 RDW 25.2 H Plt Count 331 MPV 10.0 Immature Gran % (Auto) Cancelled Neut % (Auto) Cancelled Lymph % (Auto) Cancelled [place] % (Auto) Cancelled Eos % (Auto) Cancelled Baso % (Auto) Cancelled Lymph # (Auto) Cancelled [place] # (Auto) Cancelled Eos # (Auto) Cancelled Baso # (Auto) Cancelled Abs Immat Gran (auto) Cancelled Absolute Neuts (auto) Cancelled Absolute Nucleated RBC 0.700 H Nucleated RBC % (auto) 1.9 H Neutrophils % (Manual) 73 Band Neutrophils % 7 H Lymphocytes % (Manual) 10 L Monocytes % (Manual) 7 Metamyelocytes % 3 Myelocytes % Abs Neuts (Manual) 28.8 H Lymphocytes # (Manual) 3.6 Monocytes # (Manual) 2.5 H Metamyelocytes # 1.1 Myelocytes # Nucleated RBCs 3 H Toxic Vacuolation Platelet Estimate NORMAL Large Platelets Plt Morphology Comment NORMAL RBC Morphology NOTED Polychromasia Hypochromasia Basophilic Stippling 1+ (0-2) Microcytosis Macrocytosis 1+ (5-14) Spherocytes Target Cells 1+ (5-14) Tear Drop Cells Ovalocytes Stomatocytes Acanthocytes (Spur) 1+ (0-2) Schistocytes PT INR VBG pH 7.28 L VBG pCO2 39 VBG pO2 65 VBG HCO3 19 L VBG O2 Saturation 88.0 VBG Base Excess -7.1 Sodium 137 Potassium 4.5 Chloride 96 Carbon Dioxide 17 L Anion Gap 29 H BUN 37 H Creatinine 4.27 H* Estim Creat Clear Calc 21.4 Estimated GFR 11 POC Glucose 97 Random Glucose 91 Lactic Acid Lactic Acid F/U @ 2Hr Lactic Acid F/U @ 4Hr Calcium 8.6 Phosphorus 5.1 H Magnesium 2.2 Total Bilirubin AST ALT Alkaline Phosphatase Troponin I High Sens Total Protein Albumin Procalcitonin Random Cortisol Random Vancomycin Salicylates Acetaminophen Blood Type Antibody Screen 06/23/24 06/26/24 06/26/24 23:33 00:13 05:12 WBC 35.3 H* RBC 3.36 L Hgb 7.5 L Hct 24.1 L MCV 71.7 L MCH 22.3 L MCHC 31.1 RDW 25.7 H Plt Count 234 MPV 10.6 Immature Gran % (Auto) Cancelled Neut % (Auto) Cancelled Lymph % (Auto) Cancelled [place] % (Auto) Cancelled Eos % (Auto) Cancelled Baso % (Auto) Cancelled Lymph # (Auto) Cancelled [place] # (Auto) Cancelled Eos # (Auto) Cancelled Baso # (Auto) Cancelled Abs Immat Gran (auto) Cancelled Absolute Neuts (auto) Cancelled Absolute Nucleated RBC 0.580 H Nucleated RBC % (auto) 1.6 H Neutrophils % (Manual) 77 H Band Neutrophils % 5 Lymphocytes % (Manual) 4 L Monocytes % (Manual) 8 Metamyelocytes % 4 Myelocytes % 2 Abs Neuts (Manual) 28.9 H Lymphocytes # (Manual) 1.4 Monocytes # (Manual) 2.8 H Metamyelocytes # 1.4 Myelocytes # 0.7 Nucleated RBCs 7 H Toxic Vacuolation PRESENT Platelet Estimate NORMAL Large Platelets PRESENT Plt Morphology Comment NOTED RBC Morphology NOTED Polychromasia Hypochromasia 2+ (15-30) Basophilic Stippling Microcytosis 2+ (15-30) Macrocytosis Spherocytes Target Cells 2+ (15-30) Tear Drop Cells 1+ (0-2) Ovalocytes 1+ (5-14) Stomatocytes 1+ (5-14) Acanthocytes (Spur) 1+ (0-2) Schistocytes 1+ (0-2) PT INR VBG pH VBG pCO2 VBG pO2 VBG HCO3 VBG O2 Saturation VBG Base Excess Sodium 136 Potassium 4.7 Chloride 89 L Carbon Dioxide 21 L Anion Gap 31 H BUN 41 H Creatinine 5.49 H* Estim Creat Clear Calc 16.7 Estimated GFR 8 POC Glucose 107 96 Random Glucose 88 Lactic Acid Lactic Acid F/U @ 2Hr Lactic Acid F/U @ 4Hr Calcium 8.2 L Phosphorus 6.1 H Magnesium 2.1 Total Bilirubin 6.9 H AST 1285 H ALT 231 H Alkaline Phosphatase 188 H Troponin I High Sens Total Protein 6.8 Albumin 2.9 L Procalcitonin Random Cortisol Random Vancomycin 17.8 Salicylates Acetaminophen Blood Type Antibody Screen 06/26/24 06/26/24 06/26/24 05:13 10:15 11:16 WBC RBC Hgb Hct MCV MCH MCHC RDW Plt Count MPV Immature Gran % (Auto) Neut % (Auto) Lymph % (Auto) [place] % (Auto) Eos % (Auto) Baso % (Auto) Lymph # (Auto) [place] # (Auto) Eos # (Auto) Baso # (Auto) Abs Immat Gran (auto) Absolute Neuts (auto) Absolute Nucleated RBC Nucleated RBC % (auto) Neutrophils % (Manual) Band Neutrophils % Lymphocytes % (Manual) Monocytes % (Manual) Metamyelocytes % Myelocytes % Abs Neuts (Manual) Lymphocytes # (Manual) Monocytes # (Manual) Metamyelocytes # Myelocytes # Nucleated RBCs Toxic Vacuolation Platelet Estimate Large Platelets Plt Morphology Comment RBC Morphology Polychromasia Hypochromasia Basophilic Stippling Microcytosis Macrocytosis Spherocytes Target Cells Tear Drop Cells Ovalocytes Stomatocytes Acanthocytes (Spur) Schistocytes PT 26.3 H D INR 2.3 H VBG pH 7.39 VBG pCO2 47 VBG pO2 52 VBG HCO3 29 H VBG O2 Saturation 72.0 VBG Base Excess 4.1 Sodium Potassium Chloride Carbon Dioxide Anion Gap BUN Creatinine Estim Creat Clear Calc Estimated GFR POC Glucose 131 H Random Glucose Lactic Acid Lactic Acid F/U @ 2Hr Lactic Acid F/U @ 4Hr Calcium Phosphorus Magnesium Total Bilirubin AST ALT Alkaline Phosphatase Troponin I High Sens Total Protein Albumin Procalcitonin Random Cortisol Random Vancomycin Salicylates Acetaminophen Blood Type B Positive Antibody Screen NEGATIVE 06/26/24 06/26/24 15:27 17:06 WBC RBC Hgb Hct MCV MCH MCHC RDW Plt Count MPV Immature Gran % (Auto) Neut % (Auto) Lymph % (Auto) [place] % (Auto) Eos % (Auto) Baso % (Auto) Lymph # (Auto) [place] # (Auto) Eos # (Auto) Baso # (Auto) Abs Immat Gran (auto) Absolute Neuts (auto) Absolute Nucleated RBC Nucleated RBC % (auto) Neutrophils % (Manual) Band Neutrophils % Lymphocytes % (Manual) Monocytes % (Manual) Metamyelocytes % Myelocytes % Abs Neuts (Manual) Lymphocytes # (Manual) Monocytes # (Manual) Metamyelocytes # Myelocytes # Nucleated RBCs Toxic Vacuolation Platelet Estimate Large Platelets Plt Morphology Comment RBC Morphology Polychromasia Hypochromasia Basophilic Stippling Microcytosis Macrocytosis Spherocytes Target Cells Tear Drop Cells Ovalocytes Stomatocytes Acanthocytes (Spur) Schistocytes PT INR VBG pH VBG pCO2 VBG pO2 VBG HCO3 VBG O2 Saturation VBG Base Excess Sodium Potassium Chloride Carbon Dioxide Anion Gap BUN Creatinine Estim Creat Clear Calc Estimated GFR POC Glucose 91 Random Glucose Lactic Acid Lactic Acid F/U @ 2Hr Lactic Acid F/U @ 4Hr Calcium Phosphorus Magnesium Total Bilirubin AST ALT Alkaline Phosphatase Troponin I High Sens Total Protein Albumin Procalcitonin 11.42 Random Cortisol Random Vancomycin Salicylates Acetaminophen Blood Type Antibody Screen Microbiology Microbiology Results: Microbiology 06/26/24 09:18 Trachea Gram Stain - Final 06/24/24 19:04 Blood - Venous Blood Culture - Preliminary No growth after 24 hours. 06/24/24 19:04 Blood - Venous Blood Culture - Preliminary No growth after 24 hours. 06/23/24 03:59 Blood - Venous Blood Culture - Preliminary No growth after 48 hours. 06/23/24 05:30 Blood - Venous Blood Culture - Preliminary No growth after 48 hours. 06/18/24 15:26 Blood - Venous Blood Culture - Final No growth after 5 days. 06/18/24 15:26 Blood - Venous Blood Culture - Final No growth after 5 days. 06/18/24 20:10 Urine clean catch - Clean Catch Midstream Urine Culture - Final Procedures Date of Service Date of Service: 06/26/24 Assessment & Plan Assessment and plan (1) JAYSON (acute kidney injury): Status: Acute Plan JAYSON likely due to ATN ( DDx- direct infiltration of B cells into kidney versus tumor lysis( unlikely) Work up in progress; S/P HD catheter ; HD this morning Needs liver lesions biopsied this AM ; Likely will need renal biopsy as well when stable cortisol level reviewed given hypotension and hyperkalemia; Surgical F/U ECHO reviewed ; C/W rest of current supportive care for now Progress Note: Quality Stroke Does the patient have a stroke diagnosis?: No
[2024-06-26 20:54] LABS: VBG Base Excess 2.1 mmol/L; VBG HCO3 28 mmol/L (22-26); VBG pCO2 49 mmHg; VBG pH 7.35 (7.32-7.43); VBG pO2 47 mmHg
[2024-06-26 21:22] LABS: Venous Blood Gas Refer to POC result
[2024-06-26] MEDS: dexmedeTOMIDidine HCL/NS 400 MCG/100 ML INFUS..BTL 32.02 MCG IVCONT (21:24)
[2024-06-26] MEDS: Phenylephrine HCL 100 MG in 0.9 % Sodium Chloride 250 ML 37.46 MG IVCONT (21:25)
[2024-06-26 21:28] LABS: Glucose, Whole Blood 66 mg/dL (60-115)
[2024-06-26] MEDS: bisacodyL 10 MG SUPP.RECT PR (21:34)
[2024-06-26 21:44] LABS: Hematocrit 25.4 % (37.0-47.0); Hemoglobin 7.5 g/dl (12.0-16.0); Mean Corpuscular HGB Conc 29.5 g/dl (31.0-35.0); Mean Corpuscular Hemoglobin 21.6 pg (27.0-33.0); Mean Corpuscular Volume 73.2 fL (80.0-98.0); Mean Platelet Volume 10.4 fL (9.4-12.3); Platelet Count 190 X10*3/uL (160-400); Red Blood Count 3.47 X10*6/uL (4.20-5.50); Red Cell Distribution Width 25.3 % (11.0-16.0)
[2024-06-26 21:50] LABS: Alanine Aminotransferase 237 U/L (0-31); Albumin Level 2.6 g/dL (3.5-5.0); Alkaline Phosphatase 168 U/L (39-117); Anion Gap 25 (12-20); Aspartate Amino Transferase 1249 U/L (5-31); Bilirubin Total 6.9 mg/dL (0.0-1.0); Blood Urea Nitrogen 28 mg/dL (9-16); Calcium 7.7 mg/dL (8.4-10.2); Carbon Dioxide 21 mmol/L (22-29); Chloride 95 mmol/L (96-108); Estimated Glomerular Filt Rate 11; Glucose Random 59 mg/dL (60-115); Potassium 4.3 mmol/L (3.3-5.1); Sodium 137 mmol/L (135-145); Total Protein 6.2 g/dL (6.5-8.0)
[2024-06-26 21:54] LABS: NRBC Pct Auto 2.8 /100WBC (0.0-0.2); WBC ABN SCTR FOR CBC 1
[2024-06-26 21:56] LABS: White Blood Count 35.9 X10*3/uL (4.8-10.8)
[2024-06-26] MEDS: Dextrose 50 % 25 GM/50 ML SYRINGE IVPUSH (21:58)
[2024-06-26 22:16] LABS: Atypical Lymph Absolute Manual 0.4 x10*3/uL; Atypical Lymphs Percent Manual 1 % (0-6); Band Neutrophils Percent 9 % (3-5); Eosinophils Absolute Manual 0.4 X10*3/uL (0.0-0.4); Eosinophils Percent Manual 1 % (0-4); Lymphocytes Absolute Manual 2.9 X10*3/uL (1.2-4.9); Lymphocytes Percent Manual 8 % (20-40); Metamyelocytes Absolute 1.1 X10*3/uL; Metamyelocytes Percent 3 %; Monocytes Absolute Manual 3.9 X10*3/uL (0.1-1.2); Monocytes Percent Manual 11 % (2-11); Myelocytes Absolute 1.4 X10*/uL; Myelocytes Percent 4 %; Neutrophils Absolute Manual 25.8 X10*3/uL (2.0-8.3); Neutrophils Percent Manual 63 % (45-73); Nucleated Red Blood Cells 5 /100WBC (0-0)
[2024-06-26 22:17] LABS: Polychromasia 1+ (0-2) /OIF; RBC Morphology NORMAL
[2024-06-26 22:19] LABS: Hypochromasia 1+ (5-14) /OIF; Target Cells 1+ (5-14) /OIF; Tear Drop Cells 1+ (0-2) /OIF
[2024-06-26 22:20] LABS: Burr Cells 1+ (0-2) /OIF; Microcytosis 1+ (5-14) /OIF; Platelet Estimate NORMAL (NORMAL); Platelet Morphology Comment NORMAL; Schistocytes 1+ (0-2) /OIF
[2024-06-26 22:23] LABS: Toxic Granulation PRESENT
[2024-06-26] MEDS: Albumin Human 25 % 100 ML 133.33 ML IV (23:42)
[2024-06-26 23:52] LABS: Glucose, Whole Blood 108 mg/dL (60-115)
[2024-06-27] VITALS (46 sets, daily range): BP systolic 88–131; BP diastolic 40–58; PULSE 65–85; RESP 14–29; TEMP 34.9–37.7; O2SAT 90–97
[2024-06-27] MEDS: dexmedeTOMIDidine HCL/NS 400 MCG/100 ML INFUS..BTL 32.02 MCG IVCONT ×3 (00:13→06:10)
[2024-06-27] MEDS: Albumin Human 25 % 100 ML 133.33 ML IV (00:27)
[2024-06-27] MEDS: metroNIDAZOLE/NS 500 MG/100 ML PIGGYBACK 100 MG IV ×3 (02:17→19:13)
[2024-06-27] MEDS: Phenylephrine HCL 100 MG in 0.9 % Sodium Chloride 250 ML 37.46 MG IVCONT (04:10)
[2024-06-27 04:26] LABS: VBG Base Excess 15.9 mmol/L; VBG HCO3 40 mmol/L (22-26); VBG pCO2 47 mmHg; VBG pH 7.53 (7.32-7.43); VBG pO2 55 mmHg
[2024-06-27 04:38] LABS: Mean Corpuscular HGB Conc 30.1 g/dl (31.0-35.0); Mean Corpuscular Hemoglobin 21.7 pg (27.0-33.0); Mean Corpuscular Volume 72.1 fL (80.0-98.0); PLT CLUMP 1
[2024-06-27 04:41] LABS: Venous Blood Gas Refer to POC result
[2024-06-27 04:50] LABS: Hematocrit 20.9 % (37.0-47.0); Hemoglobin 6.3 g/dl (12.0-16.0); White Blood Count 31.2 X10*3/uL (4.8-10.8)
[2024-06-27 04:51] LABS: Mean Platelet Volume 9.8 fL (9.4-12.3); Platelet Count 144 X10*3/uL (160-400)
[2024-06-27 04:57] LABS: Band Neutrophils Percent 6 % (3-5); Lymphocytes Absolute Manual 3.1 X10*3/uL (1.2-4.9); Lymphocytes Percent Manual 10 % (20-40); Metamyelocytes Absolute 1.2 X10*3/uL; Metamyelocytes Percent 4 %; Monocytes Absolute Manual 1.6 X10*3/uL (0.1-1.2); Monocytes Percent Manual 5 % (2-11); Myelocytes Absolute 1.2 X10*/uL; Myelocytes Percent 4 %; Neutrophils Percent Manual 71 % (45-73); Nucleated Red Blood Cells 3 /100WBC (0-0)
[2024-06-27 04:58] LABS: Microcytosis 1+ (5-14) /OIF; Ovalocytes 1+ (5-14) /OIF; RBC Morphology NOTED
[2024-06-27 04:59] LABS: Hypochromasia 1+ (5-14) /OIF; Polychromasia 1+ (0-2) /OIF; Schistocytes 1+ (0-2) /OIF; Stomatocytes 1+ (5-14) /OIF
[2024-06-27 05:00] LABS: Spherocytes 1+ (0-2) /OIF
[2024-06-27 05:01] LABS: Platelet Estimate SLIGHTLY DECREASED (NORMAL)
[2024-06-27 05:02] LABS: Large Platelet PRESENT; Platelet Morphology Comment NOTED
[2024-06-27] MEDS: Levothyroxine Sodium 100 MCG/5 ML VIAL 300 MCG IVPUSH (05:24)
[2024-06-27 05:35] LABS: Alkaline Phosphatase 156 U/L (39-117)
[2024-06-27] MEDS: Sodium Bicarbonate 8.4% 150 MEQ in Dextrose 5 % 850 ML 100 MEQ IV ×2 (06:09→15:51)
[2024-06-27 06:14] LABS: Alanine Aminotransferase 299 U/L (0-31); Albumin Level 2.9 g/dL (3.5-5.0); Anion Gap 31 (12-20); Aspartate Amino Transferase 1762 U/L (5-31); Bilirubin Total 7.8 mg/dL (0.0-1.0); Blood Urea Nitrogen 35 mg/dL (9-16); Calcium 7.8 mg/dL (8.4-10.2); Carbon Dioxide 19 mmol/L (22-29); Chloride 93 mmol/L (96-108); Creatinine Clr Calc Pharmacy 21.1; Estimated Glomerular Filt Rate 10; Glucose Random 66 mg/dL (60-115); Potassium 4.7 mmol/L (3.3-5.1); Sodium 138 mmol/L (135-145); Total Protein 6.5 g/dL (6.5-8.0)
[2024-06-27 06:17] LABS: Glucose, Whole Blood 68 mg/dL (60-115)
[2024-06-27] MEDS: Dextrose 50 % 25 GM/50 ML SYRINGE IVPUSH (06:19)
[2024-06-27 06:34] LABS: Magnesium 2.1 mg/dL (1.6-2.6); Phosphorus 6.5 mg/dL (2.7-4.5)
[2024-06-27] MEDS: 0.9 % Sodium Chloride Flush 3 ML SYRINGE IVFLUSH ×3 (07:22→23:31)
[2024-06-27] MEDS: Chlorhexidine Gluc Oral Rinse 15 ML MOUTHWASH BUCCAL ×3 (08:00→21:02)
[2024-06-27] MEDS: Famotidine/PF 20 MG/2 ML VIAL IVPUSH (08:00)
--- NOTE | 2024-06-27 08:22 | P.PNCC_ITS ---
Subjective Subjective Date of Service: 06/27/24 Critical Care Time (minutes): 35 Comment: Continues to be on ventilator support, Levophed for vasopressor support Received session of hemodialysis yesterday Converted back to sinus rhythm with heart rate around 66 this morning. on phenylephrine 1.5 this morning Off fentanyl and propofol, currently on precedex Received a unit of PRBC transfusion this morning for a drop in hemoglobin from 7.5-6.3 Physical Exam 2 Vital Signs: Vital Signs: Last Vital Signs Temp 99.0 F 06/27/24 07:00 Pulse 66 06/27/24 08:00 Resp 22 H 06/27/24 08:00 BP 119/53 L 06/27/24 08:00 Pulse Ox 95 06/27/24 08:00 O2 Del Method Mechanical Ventil ation 06/27/24 08:00 O2 Flow Rate 15 06/24/24 20:00 FiO2 40 06/27/24 08:07 BMI result Body Mass Index 58.7 General: acute distress, ill appearing and tired appearing Nutritional Appearance: well nourished and overweight Eyes: appearance normal, both eyes and all related structures; Alignment and Position: alignment normal and position normal Neck: No lymphadenopathy, no thyromegaly Resp: bilateral air entry equal, crackles heard bilaterally Cardio: Regular rate, regular rhythm; Heart sounds: S1 normal heart sound present and S2 normal heart sound present GI: soft, nontender, no guarding, no hepatosplenomegaly : bladder normal to inspection, bladder normal to palpation, no renal angle tenderness Skin: no rashes or lesions noted and elasticity normal Neuro: Sedated, no focal deficits Objective Data Labs 06/27/24 04:16 06/27/24 05:10 Labs: Laboratory Results - last 24 hr 06/22/24 06/22/24 06/22/24 00:30 05:27 05:27 WBC 22.0 H 22.0 H RBC 3.47 L 3.41 L Hgb 7.6 L 7.4 L Hct 23.4 L 23.0 L MCV 67.4 L 67.4 L MCH 21.9 L 21.7 L MCHC 32.5 32.2 RDW 24.1 H 23.9 H Plt Count 306 293 MPV 10.4 10.7 Immature Gran % (Auto) Neut % (Auto) Lymph % (Auto) [place] % (Auto) Eos % (Auto) Baso % (Auto) Lymph # (Auto) [place] # (Auto) Eos # (Auto) Baso # (Auto) Abs Immat Gran (auto) Absolute Neuts (auto) Absolute Nucleated RBC 0.090 H 0.090 H Nucleated RBC % (auto) 0.4 H 0.4 H Neutrophils % (Manual) Band Neutrophils % Lymphocytes % (Manual) Atypical Lymphs % (Man) Monocytes % (Manual) Eosinophils % (Manual) Metamyelocytes % Myelocytes % Abs Neuts (Manual) Lymphocytes # (Manual) Atyp Lymphs # (Manual) Monocytes # (Manual) Eosinophils # (Manual) Metamyelocytes # Myelocytes # Nucleated RBCs Toxic Granulation Toxic Vacuolation Platelet Estimate Large Platelets Plt Morphology Comment RBC Morphology Polychromasia Hypochromasia Basophilic Stippling Microcytosis Macrocytosis Spherocytes Target Cells Tear Drop Cells Ovalocytes Stomatocytes Lauren Cells Acanthocytes (Spur) Schistocytes PT INR VBG pH 7.31 L VBG pCO2 44 VBG pO2 70 VBG HCO3 22 VBG O2 Saturation 93.0 VBG Base Excess -3.3 Sodium 132 L Cancelled 132 L Potassium 5.1 Cancelled Chloride 99 Carbon Dioxide 18 L Anion Gap 20 BUN 53 H Creatinine 5.01 H* Estim Creat Clear Calc 18.3 Estimated GFR 9 POC Glucose Random Glucose 90 Lactic Acid Lactic Acid F/U @ 2Hr Lactic Acid F/U @ 4Hr Calcium 7.9 L D Phosphorus Magnesium Total Bilirubin AST ALT Alkaline Phosphatase Troponin I High Sens Total Protein Albumin Procalcitonin Random Cortisol Salicylates Acetaminophen Blood Type Antibody Screen Crossmatch 06/22/24 06/22/24 06/22/24 05:27 05:27 05:27 WBC RBC Hgb Hct MCV MCH MCHC RDW Plt Count MPV Immature Gran % (Auto) Neut % (Auto) Lymph % (Auto) [place] % (Auto) Eos % (Auto) Baso % (Auto) Lymph # (Auto) [place] # (Auto) Eos # (Auto) Baso # (Auto) Abs Immat Gran (auto) Absolute Neuts (auto) Absolute Nucleated RBC Nucleated RBC % (auto) Neutrophils % (Manual) Band Neutrophils % Lymphocytes % (Manual) Atypical Lymphs % (Man) Monocytes % (Manual) Eosinophils % (Manual) Metamyelocytes % Myelocytes % Abs Neuts (Manual) Lymphocytes # (Manual) Atyp Lymphs # (Manual) Monocytes # (Manual) Eosinophils # (Manual) Metamyelocytes # Myelocytes # Nucleated RBCs Toxic Granulation Toxic Vacuolation Platelet Estimate Large Platelets Plt Morphology Comment RBC Morphology Polychromasia Hypochromasia Basophilic Stippling Microcytosis Macrocytosis Spherocytes Target Cells Tear Drop Cells Ovalocytes Stomatocytes [place] Cells Acanthocytes (Spur) Schistocytes PT INR VBG pH VBG pCO2 VBG pO2 VBG HCO3 VBG O2 Saturation VBG Base Excess Sodium Potassium 4.9 Chloride Cancelled 98 Carbon Dioxide Cancelled 20 L Anion Gap Cancelled BUN Creatinine Estim Creat Clear Calc Estimated GFR POC Glucose Random Glucose Lactic Acid Lactic Acid F/U @ 2Hr Lactic Acid F/U @ 4Hr Calcium Phosphorus Magnesium Total Bilirubin AST ALT Alkaline Phosphatase Troponin I High Sens Total Protein Albumin Procalcitonin Random Cortisol Salicylates Acetaminophen Blood Type Antibody Screen Crossmatch 06/22/24 06/22/24 06/22/24 05:27 05:27 05:27 WBC RBC Hgb Hct MCV MCH MCHC RDW Plt Count MPV Immature Gran % (Auto) Neut % (Auto) Lymph % (Auto) [place] % (Auto) Eos % (Auto) Baso % (Auto) Lymph # (Auto) [place] # (Auto) Eos # (Auto) Baso # (Auto) Abs Immat Gran (auto) Absolute Neuts (auto) Absolute Nucleated RBC Nucleated RBC % (auto) Neutrophils % (Manual) Band Neutrophils % Lymphocytes % (Manual) Atypical Lymphs % (Man) Monocytes % (Manual) Eosinophils % (Manual) Metamyelocytes % Myelocytes % Abs Neuts (Manual) Lymphocytes # (Manual) Atyp Lymphs # (Manual) Monocytes # (Manual) Eosinophils # (Manual) Metamyelocytes # Myelocytes # Nucleated RBCs Toxic Granulation Toxic Vacuolation Platelet Estimate Large Platelets Plt Morphology Comment RBC Morphology Polychromasia Hypochromasia Basophilic Stippling Microcytosis Macrocytosis Spherocytes Target Cells Tear Drop Cells Ovalocytes Stomatocytes [place] Cells Acanthocytes (Spur) Schistocytes PT INR VBG pH VBG pCO2 VBG pO2 VBG HCO3 VBG O2 Saturation VBG Base Excess Sodium Potassium Chloride Carbon Dioxide Anion Gap 19 BUN Cancelled 56 H Creatinine Cancelled 5.52 H* Estim Creat Clear Calc Cancelled Estimated GFR POC Glucose Random Glucose Lactic Acid Lactic Acid F/U @ 2Hr Lactic Acid F/U @ 4Hr Calcium Phosphorus Magnesium Total Bilirubin AST ALT Alkaline Phosphatase Troponin I High Sens Total Protein Albumin Procalcitonin Random Cortisol Salicylates Acetaminophen Blood Type Antibody Screen Crossmatch 06/22/24 06/22/24 06/22/24 05:27 05:27 05:27 WBC RBC Hgb Hct MCV MCH MCHC RDW Plt Count MPV Immature Gran % (Auto) Neut % (Auto) Lymph % (Auto) [place] % (Auto) Eos % (Auto) Baso % (Auto) Lymph # (Auto) [place] # (Auto) Eos # (Auto) Baso # (Auto) Abs Immat Gran (auto) Absolute Neuts (auto) Absolute Nucleated RBC Nucleated RBC % (auto) Neutrophils % (Manual) Band Neutrophils % Lymphocytes % (Manual) Atypical Lymphs % (Man) Monocytes % (Manual) Eosinophils % (Manual) Metamyelocytes % Myelocytes % Abs Neuts (Manual) Lymphocytes # (Manual) Atyp Lymphs # (Manual) Monocytes # (Manual) Eosinophils # (Manual) Metamyelocytes # Myelocytes # Nucleated RBCs Toxic Granulation Toxic Vacuolation Platelet Estimate Large Platelets Plt Morphology Comment RBC Morphology Polychromasia Hypochromasia Basophilic Stippling Microcytosis Macrocytosis Spherocytes Target Cells Tear Drop Cells Ovalocytes Stomatocytes [place] Cells Acanthocytes (Spur) Schistocytes PT INR VBG pH VBG pCO2 VBG pO2 VBG HCO3 VBG O2 Saturation VBG Base Excess Sodium Potassium Chloride Carbon Dioxide Anion Gap BUN Creatinine Estim Creat Clear Calc 16.6 Estimated GFR Cancelled 8 POC Glucose Random Glucose Cancelled 96 Lactic Acid Lactic Acid F/U @ 2Hr Lactic Acid F/U @ 4Hr Calcium Cancelled Phosphorus Magnesium Total Bilirubin AST ALT Alkaline Phosphatase Troponin I High Sens Total Protein Albumin Procalcitonin Random Cortisol Salicylates Acetaminophen Blood Type Antibody Screen Crossmatch 06/22/24 06/22/24 06/22/24 05:27 05:31 07:29 WBC RBC Hgb Hct MCV MCH MCHC RDW Plt Count MPV Immature Gran % (Auto) Neut % (Auto) Lymph % (Auto) [place] % (Auto) Eos % (Auto) Baso % (Auto) Lymph # (Auto) [place] # (Auto) Eos # (Auto) Baso # (Auto) Abs Immat Gran (auto) Absolute Neuts (auto) Absolute Nucleated RBC Nucleated RBC % (auto) Neutrophils % (Manual) Band Neutrophils % Lymphocytes % (Manual) Atypical Lymphs % (Man) Monocytes % (Manual) Eosinophils % (Manual) Metamyelocytes % Myelocytes % Abs Neuts (Manual) Lymphocytes # (Manual) Atyp Lymphs # (Manual) Monocytes # (Manual) Eosinophils # (Manual) Metamyelocytes # Myelocytes # Nucleated RBCs Toxic Granulation Toxic Vacuolation Platelet Estimate Large Platelets Plt Morphology Comment RBC Morphology Polychromasia Hypochromasia Basophilic Stippling Microcytosis Macrocytosis Spherocytes Target Cells Tear Drop Cells Ovalocytes Stomatocytes Lauren Cells Acanthocytes (Spur) Schistocytes PT INR VBG pH 7.45 H VBG pCO2 29 VBG pO2 67 VBG HCO3 20 L VBG O2 Saturation 95.0 VBG Base Excess -2.2 Sodium Potassium Chloride Carbon Dioxide Anion Gap BUN Creatinine Estim Creat Clear Calc Estimated GFR POC Glucose 105 Random Glucose Lactic Acid Lactic Acid F/U @ 2Hr Lactic Acid F/U @ 4Hr Calcium 8.2 L Phosphorus 5.7 H Magnesium 2.1 Total Bilirubin 4.1 H AST 269 H ALT 89 H Alkaline Phosphatase 256 H Troponin I High Sens Total Protein 6.7 Albumin 3.2 L Procalcitonin Random Cortisol 22.8 Salicylates < 5.0 L Acetaminophen < 3 Blood Type Antibody Screen Crossmatch 06/22/24 06/22/24 06/22/24 09:30 11:30 11:56 WBC RBC Hgb Hct MCV MCH MCHC RDW Plt Count MPV Immature Gran % (Auto) Neut % (Auto) Lymph % (Auto) [place] % (Auto) Eos % (Auto) Baso % (Auto) Lymph # (Auto) [place] # (Auto) Eos # (Auto) Baso # (Auto) Abs Immat Gran (auto) Absolute Neuts (auto) Absolute Nucleated RBC Nucleated RBC % (auto) Neutrophils % (Manual) Band Neutrophils % Lymphocytes % (Manual) Atypical Lymphs % (Man) Monocytes % (Manual) Eosinophils % (Manual) Metamyelocytes % Myelocytes % Abs Neuts (Manual) Lymphocytes # (Manual) Atyp Lymphs # (Manual) Monocytes # (Manual) Eosinophils # (Manual) Metamyelocytes # Myelocytes # Nucleated RBCs Toxic Granulation Toxic Vacuolation Platelet Estimate Large Platelets Plt Morphology Comment RBC Morphology Polychromasia Hypochromasia Basophilic Stippling Microcytosis Macrocytosis Spherocytes Target Cells Tear Drop Cells Ovalocytes Stomatocytes [place] Cells Acanthocytes (Spur) Schistocytes PT INR VBG pH VBG pCO2 VBG pO2 VBG HCO3 VBG O2 Saturation VBG Base Excess Sodium Potassium Chloride Carbon Dioxide Anion Gap BUN Creatinine Estim Creat Clear Calc Estimated GFR POC Glucose 103 Random Glucose Lactic Acid 2.2 H* Lactic Acid F/U @ 2Hr 2.5 H* Lactic Acid F/U @ 4Hr Calcium Phosphorus Magnesium Total Bilirubin AST ALT Alkaline Phosphatase Troponin I High Sens Total Protein Albumin Procalcitonin Random Cortisol Salicylates Acetaminophen Blood Type Antibody Screen Crossmatch 06/22/24 06/22/24 06/22/24 14:25 16:26 21:28 WBC RBC Hgb Hct MCV MCH MCHC RDW Plt Count MPV Immature Gran % (Auto) Neut % (Auto) Lymph % (Auto) [place] % (Auto) Eos % (Auto) Baso % (Auto) Lymph # (Auto) [place] # (Auto) Eos # (Auto) Baso # (Auto) Abs Immat Gran (auto) Absolute Neuts (auto) Absolute Nucleated RBC Nucleated RBC % (auto) Neutrophils % (Manual) Band Neutrophils % Lymphocytes % (Manual) Atypical Lymphs % (Man) Monocytes % (Manual) Eosinophils % (Manual) Metamyelocytes % Myelocytes % Abs Neuts (Manual) Lymphocytes # (Manual) Atyp Lymphs # (Manual) Monocytes # (Manual) Eosinophils # (Manual) Metamyelocytes # Myelocytes # Nucleated RBCs Toxic Granulation Toxic Vacuolation Platelet Estimate Large Platelets Plt Morphology Comment RBC Morphology Polychromasia Hypochromasia Basophilic Stippling Microcytosis Macrocytosis Spherocytes Target Cells Tear Drop Cells Ovalocytes Stomatocytes [place] Cells Acanthocytes (Spur) Schistocytes PT INR VBG pH VBG pCO2 VBG pO2 VBG HCO3 VBG O2 Saturation VBG Base Excess Sodium Potassium Chloride Carbon Dioxide Anion Gap BUN Creatinine Estim Creat Clear Calc Estimated GFR POC Glucose 111 115 Random Glucose Lactic Acid Lactic Acid F/U @ 2Hr Lactic Acid F/U @ 4Hr 2.6 H* Calcium Phosphorus Magnesium Total Bilirubin AST ALT Alkaline Phosphatase Troponin I High Sens Total Protein Albumin Procalcitonin Random Cortisol Salicylates Acetaminophen Blood Type Antibody Screen Crossmatch 06/22/24 06/22/24 06/22/24 21:40 21:45 21:58 WBC 30.4 H* RBC 3.61 L Hgb 7.9 L Hct 24.1 L MCV 66.8 L MCH 21.9 L MCHC 32.8 RDW 24.8 H Plt Count 336 MPV 10.0 Immature Gran % (Auto) Cancelled Neut % (Auto) Cancelled Lymph % (Auto) Cancelled [place] % (Auto) Cancelled Eos % (Auto) Cancelled Baso % (Auto) Cancelled Lymph # (Auto) Cancelled [place] # (Auto) Cancelled Eos # (Auto) Cancelled Baso # (Auto) Cancelled Abs Immat Gran (auto) Cancelled Absolute Neuts (auto) Cancelled Absolute Nucleated RBC 0.510 H Nucleated RBC % (auto) 1.7 H Neutrophils % (Manual) 76 H Band Neutrophils % 1 L Lymphocytes % (Manual) 6 L Atypical Lymphs % (Man) Monocytes % (Manual) 12 H Eosinophils % (Manual) Metamyelocytes % 3 Myelocytes % 2 Abs Neuts (Manual) 23.4 H Lymphocytes # (Manual) 1.8 Atyp Lymphs # (Manual) Monocytes # (Manual) 3.6 H Eosinophils # (Manual) Metamyelocytes # 0.9 Myelocytes # 0.6 Nucleated RBCs 6 H Toxic Granulation Toxic Vacuolation Platelet Estimate NORMAL Large Platelets Plt Morphology Comment NORMAL RBC Morphology NOTED Polychromasia Hypochromasia Basophilic Stippling Microcytosis Macrocytosis Spherocytes Target Cells Tear Drop Cells Ovalocytes 1+ (5-14) Stomatocytes [place] Cells Acanthocytes (Spur) Schistocytes PT INR VBG pH 7.34 VBG pCO2 45 VBG pO2 63 VBG HCO3 24 VBG O2 Saturation 88.0 VBG Base Excess -0.9 Sodium 135 Potassium 4.4 Chloride 98 Carbon Dioxide 19 L Anion Gap 22 H BUN 45 H Creatinine 4.78 H* Estim Creat Clear Calc 19.1 Estimated GFR 9 POC Glucose 116 H Random Glucose 113 Lactic Acid Lactic Acid F/U @ 2Hr Lactic Acid F/U @ 4Hr Calcium 8.3 L Phosphorus 4.7 H Magnesium 2.0 Total Bilirubin AST ALT Alkaline Phosphatase Troponin I High Sens Total Protein Albumin 3.3 L Procalcitonin Random Cortisol Salicylates Acetaminophen Blood Type Antibody Screen Crossmatch 06/23/24 06/23/24 06/23/24 03:54 03:59 06:25 WBC 27.3 H RBC 3.55 L Hgb 7.8 L Hct 23.7 L MCV 66.8 L MCH 22.0 L MCHC 32.9 RDW 24.4 H Plt Count 301 MPV 9.8 Immature Gran % (Auto) Cancelled Neut % (Auto) Cancelled Lymph % (Auto) Cancelled [place] % (Auto) Cancelled Eos % (Auto) Cancelled Baso % (Auto) Cancelled Lymph # (Auto) Cancelled [place] # (Auto) Cancelled Eos # (Auto) Cancelled Baso # (Auto) Cancelled Abs Immat Gran (auto) Cancelled Absolute Neuts (auto) Cancelled Absolute Nucleated RBC 0.350 H Nucleated RBC % (auto) 1.3 H Neutrophils % (Manual) 77 H Band Neutrophils % 5 Lymphocytes % (Manual) 6 L Atypical Lymphs % (Man) Monocytes % (Manual) 7 Eosinophils % (Manual) Metamyelocytes % 3 Myelocytes % 2 Abs Neuts (Manual) 22.4 H Lymphocytes # (Manual) 1.6 Atyp Lymphs # (Manual) Monocytes # (Manual) 1.9 H Eosinophils # (Manual) Metamyelocytes # 0.8 Myelocytes # 0.5 Nucleated RBCs 3 H Toxic Granulation Toxic Vacuolation PRESENT Platelet Estimate NORMAL Large Platelets Plt Morphology Comment NORMAL RBC Morphology NOTED Polychromasia 1+ (0-2) Hypochromasia 1+ (5-14) Basophilic Stippling Microcytosis 2+ (15-30) Macrocytosis Spherocytes 1+ (0-2) Target Cells 2+ (15-30) Tear Drop Cells Ovalocytes 1+ (5-14) Stomatocytes Lauren Cells Acanthocytes (Spur) Schistocytes 1+ (0-2) PT INR VBG pH 7.35 VBG pCO2 36 VBG pO2 67 VBG HCO3 20 L VBG O2 Saturation 90.0 VBG Base Excess -4.5 Sodium 136 Potassium 4.5 Chloride 98 Carbon Dioxide 18 L Anion Gap 25 H BUN 52 H Creatinine 5.29 H* Estim Creat Clear Calc 17.3 Estimated GFR 8 POC Glucose Random Glucose 118 H Lactic Acid 3.8 H* Lactic Acid F/U @ 2Hr 4.0 H* Lactic Acid F/U @ 4Hr Calcium 8.3 L Phosphorus 4.9 H Magnesium 2.0 Total Bilirubin 5.0 H AST 215 H ALT 79 H Alkaline Phosphatase 240 H Troponin I High Sens 972.3 H* Total Protein 6.7 Albumin 3.0 L Procalcitonin Random Cortisol Salicylates Acetaminophen Blood Type Antibody Screen Crossmatch 06/23/24 06/23/24 06/23/24 08:15 09:54 11:39 WBC RBC Hgb Hct MCV MCH MCHC RDW Plt Count MPV Immature Gran % (Auto) Neut % (Auto) Lymph % (Auto) [place] % (Auto) Eos % (Auto) Baso % (Auto) Lymph # (Auto) [place] # (Auto) Eos # (Auto) Baso # (Auto) Abs Immat Gran (auto) Absolute Neuts (auto) Absolute Nucleated RBC Nucleated RBC % (auto) Neutrophils % (Manual) Band Neutrophils % Lymphocytes % (Manual) Atypical Lymphs % (Man) Monocytes % (Manual) Eosinophils % (Manual) Metamyelocytes % Myelocytes % Abs Neuts (Manual) Lymphocytes # (Manual) Atyp Lymphs # (Manual) Monocytes # (Manual) Eosinophils # (Manual) Metamyelocytes # Myelocytes # Nucleated RBCs Toxic Granulation Toxic Vacuolation Platelet Estimate Large Platelets Plt Morphology Comment RBC Morphology Polychromasia Hypochromasia Basophilic Stippling Microcytosis Macrocytosis Spherocytes Target Cells Tear Drop Cells Ovalocytes Stomatocytes Lauren Cells Acanthocytes (Spur) Schistocytes PT INR VBG pH VBG pCO2 VBG pO2 VBG HCO3 VBG O2 Saturation VBG Base Excess Sodium Potassium Chloride Carbon Dioxide Anion Gap BUN Creatinine Estim Creat Clear Calc Estimated GFR POC Glucose 111 103 Random Glucose Lactic Acid Lactic Acid F/U @ 2Hr Lactic Acid F/U @ 4Hr 3.8 H* Calcium Phosphorus Magnesium Total Bilirubin AST ALT Alkaline Phosphatase Troponin I High Sens 1189.6 H* Total Protein Albumin Procalcitonin Random Cortisol Salicylates Acetaminophen Blood Type Antibody Screen Crossmatch 06/23/24 06/23/24 06/23/24 17:36 21:10 21:15 WBC 36.0 H* RBC 3.54 L Hgb 7.8 L Hct 23.9 L MCV 67.5 L MCH 22.0 L MCHC 32.6 RDW 25.2 H Plt Count 331 MPV 10.0 Immature Gran % (Auto) Cancelled Neut % (Auto) Cancelled Lymph % (Auto) Cancelled [place] % (Auto) Cancelled Eos % (Auto) Cancelled Baso % (Auto) Cancelled Lymph # (Auto) Cancelled [place] # (Auto) Cancelled Eos # (Auto) Cancelled Baso # (Auto) Cancelled Abs Immat Gran (auto) Cancelled Absolute Neuts (auto) Cancelled Absolute Nucleated RBC 0.700 H Nucleated RBC % (auto) 1.9 H Neutrophils % (Manual) 73 Band Neutrophils % 7 H Lymphocytes % (Manual) 10 L Atypical Lymphs % (Man) Monocytes % (Manual) 7 Eosinophils % (Manual) Metamyelocytes % 3 Myelocytes % Abs Neuts (Manual) 28.8 H Lymphocytes # (Manual) 3.6 Atyp Lymphs # (Manual) Monocytes # (Manual) 2.5 H Eosinophils # (Manual) Metamyelocytes # 1.1 Myelocytes # Nucleated RBCs 3 H Toxic Granulation Toxic Vacuolation Platelet Estimate NORMAL Large Platelets Plt Morphology Comment NORMAL RBC Morphology NOTED Polychromasia Hypochromasia Basophilic Stippling 1+ (0-2) Microcytosis Macrocytosis 1+ (5-14) Spherocytes Target Cells 1+ (5-14) Tear Drop Cells Ovalocytes Stomatocytes Lauren Cells Acanthocytes (Spur) 1+ (0-2) Schistocytes PT INR VBG pH 7.28 L VBG pCO2 39 VBG pO2 65 VBG HCO3 19 L VBG O2 Saturation 88.0 VBG Base Excess -7.1 Sodium 137 Potassium 4.5 Chloride 96 Carbon Dioxide 17 L Anion Gap 29 H BUN 37 H Creatinine 4.27 H* Estim Creat Clear Calc 21.4 Estimated GFR 11 POC Glucose 97 Random Glucose 91 Lactic Acid Lactic Acid F/U @ 2Hr Lactic Acid F/U @ 4Hr Calcium 8.6 Phosphorus 5.1 H Magnesium 2.2 Total Bilirubin AST ALT Alkaline Phosphatase Troponin I High Sens Total Protein Albumin Procalcitonin Random Cortisol Salicylates Acetaminophen Blood Type Antibody Screen Crossmatch 06/23/24 06/26/24 06/26/24 23:33 10:15 11:16 WBC RBC Hgb Hct MCV MCH MCHC RDW Plt Count MPV Immature Gran % (Auto) Neut % (Auto) Lymph % (Auto) [place] % (Auto) Eos % (Auto) Baso % (Auto) Lymph # (Auto) [place] # (Auto) Eos # (Auto) Baso # (Auto) Abs Immat Gran (auto) Absolute Neuts (auto) Absolute Nucleated RBC Nucleated RBC % (auto) Neutrophils % (Manual) Band Neutrophils % Lymphocytes % (Manual) Atypical Lymphs % (Man) Monocytes % (Manual) Eosinophils % (Manual) Metamyelocytes % Myelocytes % Abs Neuts (Manual) Lymphocytes # (Manual) Atyp Lymphs # (Manual) Monocytes # (Manual) Eosinophils # (Manual) Metamyelocytes # Myelocytes # Nucleated RBCs Toxic Granulation Toxic Vacuolation Platelet Estimate Large Platelets Plt Morphology Comment RBC Morphology Polychromasia Hypochromasia Basophilic Stippling Microcytosis Macrocytosis Spherocytes Target Cells Tear Drop Cells Ovalocytes Stomatocytes [place] Cells Acanthocytes (Spur) Schistocytes PT 26.3 H D INR 2.3 H VBG pH VBG pCO2 VBG pO2 VBG HCO3 VBG O2 Saturation VBG Base Excess Sodium Potassium Chloride Carbon Dioxide Anion Gap BUN Creatinine Estim Creat Clear Calc Estimated GFR POC Glucose 107 131 H Random Glucose Lactic Acid Lactic Acid F/U @ 2Hr Lactic Acid F/U @ 4Hr Calcium Phosphorus Magnesium Total Bilirubin AST ALT Alkaline Phosphatase Troponin I High Sens Total Protein Albumin Procalcitonin Random Cortisol Salicylates Acetaminophen Blood Type B Positive Antibody Screen NEGATIVE Crossmatch See Detail 06/26/24 06/26/24 06/26/24 15:27 17:06 20:40 WBC 35.9 H* RBC 3.47 L Hgb 7.5 L Hct 25.4 L MCV 73.2 L MCH 21.6 L MCHC 29.5 L RDW 25.3 H Plt Count 190 MPV 10.4 Immature Gran % (Auto) Cancelled Neut % (Auto) Cancelled Lymph % (Auto) Cancelled [place] % (Auto) Cancelled Eos % (Auto) Cancelled Baso % (Auto) Cancelled Lymph # (Auto) Cancelled [place] # (Auto) Cancelled Eos # (Auto) Cancelled Baso # (Auto) Cancelled Abs Immat Gran (auto) Cancelled Absolute Neuts (auto) Cancelled Absolute Nucleated RBC 1.010 H Nucleated RBC % (auto) 2.8 H Neutrophils % (Manual) 63 Band Neutrophils % 9 H Lymphocytes % (Manual) 8 L Atypical Lymphs % (Man) 1 Monocytes % (Manual) 11 Eosinophils % (Manual) 1 Metamyelocytes % 3 Myelocytes % 4 Abs Neuts (Manual) 25.8 H Lymphocytes # (Manual) 2.9 Atyp Lymphs # (Manual) 0.4 Monocytes # (Manual) 3.9 H Eosinophils # (Manual) 0.4 Metamyelocytes # 1.1 Myelocytes # 1.4 Nucleated RBCs 5 H Toxic Granulation PRESENT Toxic Vacuolation Platelet Estimate NORMAL Large Platelets Plt Morphology Comment NORMAL RBC Morphology NORMAL Polychromasia 1+ (0-2) Hypochromasia 1+ (5-14) Basophilic Stippling Microcytosis 1+ (5-14) Macrocytosis Spherocytes Target Cells 1+ (5-14) Tear Drop Cells 1+ (0-2) Ovalocytes Stomatocytes [place] Cells 1+ (0-2) Acanthocytes (Spur) Schistocytes 1+ (0-2) PT INR VBG pH VBG pCO2 VBG pO2 VBG HCO3 VBG O2 Saturation VBG Base Excess Sodium 137 Potassium 4.3 Chloride 95 L Carbon Dioxide 21 L Anion Gap 25 H BUN 28 H Creatinine 3.99 H Estim Creat Clear Calc 23.0 Estimated GFR 11 POC Glucose 91 Random Glucose 59 L* Lactic Acid Lactic Acid F/U @ 2Hr Lactic Acid F/U @ 4Hr Calcium 7.7 L D Phosphorus Magnesium Total Bilirubin 6.9 H AST 1249 H ALT 237 H Alkaline Phosphatase 168 H Troponin I High Sens Total Protein 6.2 L Albumin 2.6 L Procalcitonin 11.42 Random Cortisol Salicylates Acetaminophen Blood Type Antibody Screen Crossmatch 06/26/24 06/26/24 06/26/24 20:50 21:01 23:31 WBC RBC Hgb Hct MCV MCH MCHC RDW Plt Count MPV Immature Gran % (Auto) Neut % (Auto) Lymph % (Auto) [place] % (Auto) Eos % (Auto) Baso % (Auto) Lymph # (Auto) [place] # (Auto) Eos # (Auto) Baso # (Auto) Abs Immat Gran (auto) Absolute Neuts (auto) Absolute Nucleated RBC Nucleated RBC % (auto) Neutrophils % (Manual) Band Neutrophils % Lymphocytes % (Manual) Atypical Lymphs % (Man) Monocytes % (Manual) Eosinophils % (Manual) Metamyelocytes % Myelocytes % Abs Neuts (Manual) Lymphocytes # (Manual) Atyp Lymphs # (Manual) Monocytes # (Manual) Eosinophils # (Manual) Metamyelocytes # Myelocytes # Nucleated RBCs Toxic Granulation Toxic Vacuolation Platelet Estimate Large Platelets Plt Morphology Comment RBC Morphology Polychromasia Hypochromasia Basophilic Stippling Microcytosis Macrocytosis Spherocytes Target Cells Tear Drop Cells Ovalocytes Stomatocytes [place] Cells Acanthocytes (Spur) Schistocytes PT INR VBG pH 7.35 VBG pCO2 49 VBG pO2 47 VBG HCO3 28 H VBG O2 Saturation 64.0 VBG Base Excess 2.1 Sodium Potassium Chloride Carbon Dioxide Anion Gap BUN Creatinine Estim Creat Clear Calc Estimated GFR POC Glucose 66 108 Random Glucose Lactic Acid Lactic Acid F/U @ 2Hr Lactic Acid F/U @ 4Hr Calcium Phosphorus Magnesium Total Bilirubin AST ALT Alkaline Phosphatase Troponin I High Sens Total Protein Albumin Procalcitonin Random Cortisol Salicylates Acetaminophen Blood Type Antibody Screen Crossmatch 06/27/24 06/27/24 06/27/24 04:16 04:22 05:10 WBC 31.2 H* RBC 2.90 L Hgb 6.3 L* Hct 20.9 L* MCV 72.1 L MCH 21.7 L MCHC 30.1 L RDW 25.0 H Plt Count 144 L MPV 9.8 Immature Gran % (Auto) Cancelled Neut % (Auto) Cancelled Lymph % (Auto) Cancelled [place] % (Auto) Cancelled Eos % (Auto) Cancelled Baso % (Auto) Cancelled Lymph # (Auto) Cancelled [place] # (Auto) Cancelled Eos # (Auto) Cancelled Baso # (Auto) Cancelled Abs Immat Gran (auto) Cancelled Absolute Neuts (auto) Cancelled Absolute Nucleated RBC 0.930 H Nucleated RBC % (auto) 3.0 H Neutrophils % (Manual) 71 Band Neutrophils % 6 H Lymphocytes % (Manual) 10 L Atypical Lymphs % (Man) Monocytes % (Manual) 5 Eosinophils % (Manual) Metamyelocytes % 4 Myelocytes % 4 Abs Neuts (Manual) 24.0 H Lymphocytes # (Manual) 3.1 Atyp Lymphs # (Manual) Monocytes # (Manual) 1.6 H Eosinophils # (Manual) Metamyelocytes # 1.2 Myelocytes # 1.2 Nucleated RBCs 3 H Toxic Granulation Toxic Vacuolation Platelet Estimate SLIGHTLY DECREASED Large Platelets PRESENT Plt Morphology Comment NOTED RBC Morphology NOTED Polychromasia 1+ (0-2) Hypochromasia 1+ (5-14) Basophilic Stippling Microcytosis 1+ (5-14) Macrocytosis Spherocytes 1+ (0-2) Target Cells Tear Drop Cells Ovalocytes 1+ (5-14) Stomatocytes 1+ (5-14) Lauren Cells Acanthocytes (Spur) Schistocytes 1+ (0-2) PT INR VBG pH 7.53 H VBG pCO2 47 VBG pO2 55 VBG HCO3 40 H VBG O2 Saturation Not Reportable VBG Base Excess 15.9 Sodium 138 Potassium 4.7 Chloride 93 L Carbon Dioxide 19 L Anion Gap 31 H BUN 35 H Creatinine 4.33 H* Estim Creat Clear Calc 21.1 Estimated GFR 10 POC Glucose Random Glucose 66 Lactic Acid Lactic Acid F/U @ 2Hr Lactic Acid F/U @ 4Hr Calcium 7.8 L Phosphorus 6.5 H Magnesium 2.1 Total Bilirubin 7.8 H AST 1762 H ALT 299 H Alkaline Phosphatase 156 H Troponin I High Sens Total Protein 6.5 Albumin 2.9 L Procalcitonin Random Cortisol Salicylates Acetaminophen Blood Type Antibody Screen Crossmatch 06/27/24 06:14 WBC RBC Hgb Hct MCV MCH MCHC RDW Plt Count MPV Immature Gran % (Auto) Neut % (Auto) Lymph % (Auto) [place] % (Auto) Eos % (Auto) Baso % (Auto) Lymph # (Auto) [place] # (Auto) Eos # (Auto) Baso # (Auto) Abs Immat Gran (auto) Absolute Neuts (auto) Absolute Nucleated RBC Nucleated RBC % (auto) Neutrophils % (Manual) Band Neutrophils % Lymphocytes % (Manual) Atypical Lymphs % (Man) Monocytes % (Manual) Eosinophils % (Manual) Metamyelocytes % Myelocytes % Abs Neuts (Manual) Lymphocytes # (Manual) Atyp Lymphs # (Manual) Monocytes # (Manual) Eosinophils # (Manual) Metamyelocytes # Myelocytes # Nucleated RBCs Toxic Granulation Toxic Vacuolation Platelet Estimate Large Platelets Plt Morphology Comment RBC Morphology Polychromasia Hypochromasia Basophilic Stippling Microcytosis Macrocytosis Spherocytes Target Cells Tear Drop Cells Ovalocytes Stomatocytes [place] Cells Acanthocytes (Spur) Schistocytes PT INR VBG pH VBG pCO2 VBG pO2 VBG HCO3 VBG O2 Saturation VBG Base Excess Sodium Potassium Chloride Carbon Dioxide Anion Gap BUN Creatinine Estim Creat Clear Calc Estimated GFR POC Glucose 68 Random Glucose Lactic Acid Lactic Acid F/U @ 2Hr Lactic Acid F/U @ 4Hr Calcium Phosphorus Magnesium Total Bilirubin AST ALT Alkaline Phosphatase Troponin I High Sens Total Protein Albumin Procalcitonin Random Cortisol Salicylates Acetaminophen Blood Type Antibody Screen Crossmatch Microbiology Microbiology Results: Microbiology 06/26/24 09:18 Trachea Gram Stain - Final 06/26/24 09:18 Trachea Sputum Culture - Preliminary No growth to date. 06/24/24 19:04 Blood - Venous Blood Culture - Preliminary No growth after 48 hours. 06/24/24 19:04 Blood - Venous Blood Culture - Preliminary No growth after 48 hours. 06/23/24 03:59 Blood - Venous Blood Culture - Preliminary No growth after 48 hours. 06/23/24 05:30 Blood - Venous Blood Culture - Preliminary No growth after 48 hours. 06/18/24 15:26 Blood - Venous Blood Culture - Final No growth after 5 days. 06/18/24 15:26 Blood - Venous Blood Culture - Final No growth after 5 days. 06/18/24 20:10 Urine clean catch - Clean Catch Midstream Urine Culture - Final Progress Note: A&P Assessment and plan (1) HTN (hypertension): Status: Acute (2) Afib: Status: Acute (3) Liver masses: Status: Acute (4) Abdominal pain: Status: Acute (5) Incisional hernia: Status: Acute (6) JAYSON (acute kidney injury): Status: Acute (7) Acidosis, lactic: Status: Acute (8) UTI (urinary tract infection): Status: Acute (9) Acute respiratory failure: Status: Acute (10) Asthma: Status: Acute (11) Shock: Status: Acute Plan Neuro: Acute encephalopathy possibly due to metabolic encephalopathy On propofol for sedation, Precedex for anxiolysis will taper as tolerated. We will wean sedation for pressor support trials Close neurological status monitoring in the ICU every hour Cardiac: Shock: Possibly secondary to severe sepsis Levophed switch to phenylephrine yesterday due to atrial fibrillation with RVR Atrial fibrillation with RVR: Currently reverted back to sinus rhythm Amiodarone stopped due to hepatotoxicity, will switch to low dose digoxin Heparin for anticoagulation TTE showed normal LV systolic function, hyperdynamic LV, mild pulmonary hypertension Respiratory: Acute hypoxemic respiratory failure due to bilateral pneumonia Currently on ventilator support On PRVC mode FiO2 40, PEEP 5, TV 360, RR 20. We will wean the sedation and try the patient on pressor support trials Peak pressures and plateau pressures are under the curve Ventilator management bundle with head end elevation, aspiration precaution, chlorhexidine mouthwash, daily awakening trials, daily spontaneous breathing trials GI: Worsening transaminitis: Possibly secondary to multiorgan failure from severe sepsis versus tumor infiltration Hepatitis panel negative; we will get liver ultrasound to look for any other new etiologies CT abdomen shows diffuse hepatic metastasis, status post liver biopsy pathology pending Bowel hernia: Patient has significant ventral hernia containing bowel loops. General surgery involved, opined for conservative management for now given severity of illness CTA abdomen and pelvis showed ventral hernia with no definite evidence of ischemia. Renal: Acute kidney injury possibly secondary to ATN versus tumor infiltration kidney Complement levels and ANCA normal Currently on renal replacement therapy, received a session of hemodialysis yesterday We will closely monitor I's and O's Avoid nephrotoxic medications Lactic acidosis: secondary to multiorgan failure vs possible metastatic malignancy. on bicarb drip to correct acidosis. Heme: Chronic anemia, closely monitor H&H, transfuse for hemoglobin less than 7 grams/deciliter, receiving 2 units of PRBC this morning for drop in Hb. Leukocytosis: Secondary to hematological malignancy versus infection Endocrine: Blood sugars under control Sliding scale insulin as needed Hypothyroidism: Continue levothyroxine Infectious disease: Pancultures negative so far On broad-spectrum empiric coverage including vancomycin, cefepime, Flagyl Continue fluconazole for antifungal coverage as patient has persistent multiorgan failure despite being on multiple antibiotics Pending procalcitonin levels Musculoskeletal: Decubitus ulcer prevention protocol Lines: hemodialysis catheter Prophylaxis: heparin, famotidine Patient is critically ill with multiple organ failures including acute encephalopathy, acute hepatic failure, acute renal failure, acute respiratory failure, septic shock. Critical care time spent is about 60 minutes on managing this critically ill patient mostly on ventilator management, changing ventilator settings, weaning trials, sedation management, vasopressor management, close hemodynamic monitoring at this time is excluding any procedural time. Quality Stroke Does the patient have a stroke diagnosis?: No VTE Prior VTE?: No VTE Risk Level:: Medical - moderate - high VTE Device Contraindication: N/A - Device Ordered VTE Drug Contraindication: Treatment Not Indicated
[2024-06-27] MEDS: dexmedeTOMIDidine HCL/NS 400 MCG/100 ML INFUS..BTL 40.03 MCG IVCONT (08:38)
[2024-06-27] MEDS: Digoxin 0.5 MG/2 ML AMPUL 0.125 MG IVPUSH (08:58)
[2024-06-27] MEDS: Fluconazole in NaCl,Iso-Osm 100 MG in Container,Empty 0 ML 50 MG IV (09:04)
[2024-06-27] MEDS: dexmedeTOMIDidine HCL/NS 400 MCG/100 ML INFUS..BTL 24.02 MCG IVCONT (10:53)
[2024-06-27] MEDS: Phenylephrine HCL 100 MG in 0.9 % Sodium Chloride 250 ML 24.98 MG IVCONT ×2 (10:54→20:56)
[2024-06-27 11:11] LABS: Reflex Lactate? Lactic Acid Added
[2024-06-27 11:17] LABS: Glucose, Whole Blood 96 mg/dL (60-115)
--- NOTE | 2024-06-27 11:43 | MHC.CLN ---
F/U PT REMAINS INTUBATED AND SEDATED-NOTED PROPOFOL TURNED OFF RECEIVING TF TO [facility] AT 10ML/HR TO PROVIDE 432KCALS (1700KCALS WITH SEDATION; 30KCALS/KG BASED ON IBW), 27G PROTEIN, 175ML FREE WATER FROM FORMULA MONITOR TOLERANCE AND LYTES RECOMMEND INCREASING TF [facility]PRO TO 30ML/HR TO PROVIDE 1296KCALS (23KCALS/KG BASED ON IBW), 58G PROTEIN, 523ML FREE WATER FROM FORMULA MONITOR TOLERANCE AND LYTES
[2024-06-27 12:55] LABS: Immature Retic Fraction 38.1 % (3.0-15.9); Retic HGB Equivalent 22.2 pg (30.0-35.0); Reticulocyte Percent 2.5 % (0.5-1.8); Reticulocytes Absolute 0.094 X10*6/uL (0.026-0.095)
[2024-06-27 12:56] LABS: Hematocrit 28.2 % (37.0-47.0)
[2024-06-27 12:57] LABS: Hemoglobin 8.7 g/dl (12.0-16.0)
[2024-06-27 13:00] LABS: INTERNATIONAL NORM RATIO 2.2 (0.9-1.1)
[2024-06-27 13:10] LABS: D Dimer High Sensitivity 5082 NG/ML
[2024-06-27 13:13] LABS: Lactate Dehydrogenase 4090 U/L (122-220)
[2024-06-27 13:15] LABS: Haptoglobin 193 mg/dL (63-273)
[2024-06-27 13:22] LABS: ~Lactic Acid-LAB USE ONLY 10.3 mmol/L (0.5-2.0)
--- NOTE | 2024-06-27 14:12 | P.PNNP_ITS ---
Subjective Subjective Date of Service: 06/27/24 Interval history: Events noted. Worsening liver function. Remains dialysis dependent. Had liver biopsy yesterday Physical Exam 2 Vital Signs: Vital Signs: Last Vital Signs Temp 99.5 F 06/27/24 14:00 Pulse 69 06/27/24 14:00 Resp 20 06/27/24 14:00 BP 103/50 L 06/27/24 14:00 Pulse Ox 92 06/27/24 14:00 O2 Del Method Mechanical Ventil ation 06/27/24 14:00 O2 Flow Rate 15 06/24/24 20:00 FiO2 40 06/27/24 14:00 BMI result Body Mass Index 58.7 Const: General: no acute distress Neck: Neck: Yes supple Resp: Auscultation: diminished lung sounds Cardio: Rate: regular rate GI: Palpation (GI): Soft to palpation Neuro: Other: Sedated Objective Data Labs 06/27/24 12:43 06/27/24 05:10 Labs: Laboratory Results - last 24 hr 06/23/24 06/23/24 06/23/24 03:54 03:59 08:15 WBC 27.3 H RBC 3.55 L Hgb 7.8 L Hct 23.7 L MCV 66.8 L MCH 22.0 L MCHC 32.9 RDW 24.4 H Plt Count 301 MPV 9.8 Immature Gran % (Auto) Cancelled Neut % (Auto) Cancelled Lymph % (Auto) Cancelled [place] % (Auto) Cancelled Eos % (Auto) Cancelled Baso % (Auto) Cancelled Lymph # (Auto) Cancelled [place] # (Auto) Cancelled Eos # (Auto) Cancelled Baso # (Auto) Cancelled Abs Immat Gran (auto) Cancelled Absolute Neuts (auto) Cancelled Absolute Nucleated RBC 0.350 H Nucleated RBC % (auto) 1.3 H Neutrophils % (Manual) 77 H Band Neutrophils % 5 Lymphocytes % (Manual) 6 L Atypical Lymphs % (Man) Monocytes % (Manual) 7 Eosinophils % (Manual) Metamyelocytes % 3 Myelocytes % 2 Abs Neuts (Manual) 22.4 H Lymphocytes # (Manual) 1.6 Atyp Lymphs # (Manual) Monocytes # (Manual) 1.9 H Eosinophils # (Manual) Metamyelocytes # 0.8 Myelocytes # 0.5 Nucleated RBCs 3 H Toxic Granulation Toxic Vacuolation PRESENT Platelet Estimate NORMAL Large Platelets Plt Morphology Comment NORMAL RBC Morphology NOTED Polychromasia 1+ (0-2) Hypochromasia 1+ (5-14) Basophilic Stippling Microcytosis 2+ (15-30) Macrocytosis Spherocytes 1+ (0-2) Target Cells 2+ (15-30) Tear Drop Cells Ovalocytes 1+ (5-14) Stomatocytes Apex Cells Acanthocytes (Spur) Schistocytes 1+ (0-2) Absolute Retic Percent Retic Immature Retic Fraction Retic Hgb Equivalent PT INR D-Dimer High Sensitivty VBG pH 7.35 VBG pCO2 36 VBG pO2 67 VBG HCO3 20 L VBG O2 Saturation 90.0 VBG Base Excess -4.5 Sodium Potassium Chloride Carbon Dioxide Anion Gap BUN Creatinine Estim Creat Clear Calc Estimated GFR POC Glucose 111 Random Glucose Haptoglobin Lactic Acid Lactic Acid F/U @ 2Hr Calcium Phosphorus Magnesium Total Bilirubin AST ALT Alkaline Phosphatase Lactate Dehydrogenase Total Protein Albumin Procalcitonin Blood Type Antibody Screen ALDO, Polyspecific Positive ALDO Work-up Crossmatch 06/23/24 06/23/24 06/23/24 11:39 17:36 21:10 WBC 36.0 H* RBC 3.54 L Hgb 7.8 L Hct 23.9 L MCV 67.5 L MCH 22.0 L MCHC 32.6 RDW 25.2 H Plt Count 331 MPV 10.0 Immature Gran % (Auto) Cancelled Neut % (Auto) Cancelled Lymph % (Auto) Cancelled [place] % (Auto) Cancelled Eos % (Auto) Cancelled Baso % (Auto) Cancelled Lymph # (Auto) Cancelled [place] # (Auto) Cancelled Eos # (Auto) Cancelled Baso # (Auto) Cancelled Abs Immat Gran (auto) Cancelled Absolute Neuts (auto) Cancelled Absolute Nucleated RBC 0.700 H Nucleated RBC % (auto) 1.9 H Neutrophils % (Manual) 73 Band Neutrophils % 7 H Lymphocytes % (Manual) 10 L Atypical Lymphs % (Man) Monocytes % (Manual) 7 Eosinophils % (Manual) Metamyelocytes % 3 Myelocytes % Abs Neuts (Manual) 28.8 H Lymphocytes # (Manual) 3.6 Atyp Lymphs # (Manual) Monocytes # (Manual) 2.5 H Eosinophils # (Manual) Metamyelocytes # 1.1 Myelocytes # Nucleated RBCs 3 H Toxic Granulation Toxic Vacuolation Platelet Estimate NORMAL Large Platelets Plt Morphology Comment NORMAL RBC Morphology NOTED Polychromasia Hypochromasia Basophilic Stippling 1+ (0-2) Microcytosis Macrocytosis 1+ (5-14) Spherocytes Target Cells 1+ (5-14) Tear Drop Cells Ovalocytes Stomatocytes Lauren Cells Acanthocytes (Spur) 1+ (0-2) Schistocytes Absolute Retic Percent Retic Immature Retic Fraction Retic Hgb Equivalent PT INR D-Dimer High Sensitivty VBG pH VBG pCO2 VBG pO2 VBG HCO3 VBG O2 Saturation VBG Base Excess Sodium 137 Potassium 4.5 Chloride 96 Carbon Dioxide 17 L Anion Gap 29 H BUN 37 H Creatinine 4.27 H* Estim Creat Clear Calc 21.4 Estimated GFR 11 POC Glucose 103 97 Random Glucose 91 Haptoglobin Lactic Acid Lactic Acid F/U @ 2Hr Calcium 8.6 Phosphorus 5.1 H Magnesium 2.2 Total Bilirubin AST ALT Alkaline Phosphatase Lactate Dehydrogenase Total Protein Albumin Procalcitonin Blood Type Antibody Screen ALDO, Polyspecific Positive ALDO Work-up Crossmatch 06/23/24 06/23/24 06/26/24 21:15 23:33 10:15 WBC RBC Hgb Hct MCV MCH MCHC RDW Plt Count MPV Immature Gran % (Auto) Neut % (Auto) Lymph % (Auto) [place] % (Auto) Eos % (Auto) Baso % (Auto) Lymph # (Auto) [place] # (Auto) Eos # (Auto) Baso # (Auto) Abs Immat Gran (auto) Absolute Neuts (auto) Absolute Nucleated RBC Nucleated RBC % (auto) Neutrophils % (Manual) Band Neutrophils % Lymphocytes % (Manual) Atypical Lymphs % (Man) Monocytes % (Manual) Eosinophils % (Manual) Metamyelocytes % Myelocytes % Abs Neuts (Manual) Lymphocytes # (Manual) Atyp Lymphs # (Manual) Monocytes # (Manual) Eosinophils # (Manual) Metamyelocytes # Myelocytes # Nucleated RBCs Toxic Granulation Toxic Vacuolation Platelet Estimate Large Platelets Plt Morphology Comment RBC Morphology Polychromasia Hypochromasia Basophilic Stippling Microcytosis Macrocytosis Spherocytes Target Cells Tear Drop Cells Ovalocytes Stomatocytes Lauren Cells Acanthocytes (Spur) Schistocytes Absolute Retic Percent Retic Immature Retic Fraction Retic Hgb Equivalent PT INR D-Dimer High Sensitivty VBG pH 7.28 L VBG pCO2 39 VBG pO2 65 VBG HCO3 19 L VBG O2 Saturation 88.0 VBG Base Excess -7.1 Sodium Potassium Chloride Carbon Dioxide Anion Gap BUN Creatinine Estim Creat Clear Calc Estimated GFR POC Glucose 107 Random Glucose Haptoglobin Lactic Acid Lactic Acid F/U @ 2Hr Calcium Phosphorus Magnesium Total Bilirubin AST ALT Alkaline Phosphatase Lactate Dehydrogenase Total Protein Albumin Procalcitonin Blood Type B Positive Antibody Screen NEGATIVE ALDO, Polyspecific NEGATIVE Positive ALDO Work-up TNP Crossmatch See Detail 06/26/24 06/26/24 06/26/24 15:27 17:06 20:40 WBC 35.9 H* RBC 3.47 L Hgb 7.5 L Hct 25.4 L MCV 73.2 L MCH 21.6 L MCHC 29.5 L RDW 25.3 H Plt Count 190 MPV 10.4 Immature Gran % (Auto) Cancelled Neut % (Auto) Cancelled Lymph % (Auto) Cancelled [place] % (Auto) Cancelled Eos % (Auto) Cancelled Baso % (Auto) Cancelled Lymph # (Auto) Cancelled [place] # (Auto) Cancelled Eos # (Auto) Cancelled Baso # (Auto) Cancelled Abs Immat Gran (auto) Cancelled Absolute Neuts (auto) Cancelled Absolute Nucleated RBC 1.010 H Nucleated RBC % (auto) 2.8 H Neutrophils % (Manual) 63 Band Neutrophils % 9 H Lymphocytes % (Manual) 8 L Atypical Lymphs % (Man) 1 Monocytes % (Manual) 11 Eosinophils % (Manual) 1 Metamyelocytes % 3 Myelocytes % 4 Abs Neuts (Manual) 25.8 H Lymphocytes # (Manual) 2.9 Atyp Lymphs # (Manual) 0.4 Monocytes # (Manual) 3.9 H Eosinophils # (Manual) 0.4 Metamyelocytes # 1.1 Myelocytes # 1.4 Nucleated RBCs 5 H Toxic Granulation PRESENT Toxic Vacuolation Platelet Estimate NORMAL Large Platelets Plt Morphology Comment NORMAL RBC Morphology NORMAL Polychromasia 1+ (0-2) Hypochromasia 1+ (5-14) Basophilic Stippling Microcytosis 1+ (5-14) Macrocytosis Spherocytes Target Cells 1+ (5-14) Tear Drop Cells 1+ (0-2) Ovalocytes Stomatocytes Apex Cells 1+ (0-2) Acanthocytes (Spur) Schistocytes 1+ (0-2) Absolute Retic Percent Retic Immature Retic Fraction Retic Hgb Equivalent PT INR D-Dimer High Sensitivty VBG pH VBG pCO2 VBG pO2 VBG HCO3 VBG O2 Saturation VBG Base Excess Sodium 137 Potassium 4.3 Chloride 95 L Carbon Dioxide 21 L Anion Gap 25 H BUN 28 H Creatinine 3.99 H Estim Creat Clear Calc 23.0 Estimated GFR 11 POC Glucose 91 Random Glucose 59 L* Haptoglobin Lactic Acid Lactic Acid F/U @ 2Hr Calcium 7.7 L D Phosphorus Magnesium Total Bilirubin 6.9 H AST 1249 H ALT 237 H Alkaline Phosphatase 168 H Lactate Dehydrogenase Total Protein 6.2 L Albumin 2.6 L Procalcitonin 11.42 Blood Type Antibody Screen ALDO, Polyspecific Positive ALDO Work-up Crossmatch 06/26/24 06/26/24 06/26/24 20:50 21:01 23:31 WBC RBC Hgb Hct MCV MCH MCHC RDW Plt Count MPV Immature Gran % (Auto) Neut % (Auto) Lymph % (Auto) [place] % (Auto) Eos % (Auto) Baso % (Auto) Lymph # (Auto) [place] # (Auto) Eos # (Auto) Baso # (Auto) Abs Immat Gran (auto) Absolute Neuts (auto) Absolute Nucleated RBC Nucleated RBC % (auto) Neutrophils % (Manual) Band Neutrophils % Lymphocytes % (Manual) Atypical Lymphs % (Man) Monocytes % (Manual) Eosinophils % (Manual) Metamyelocytes % Myelocytes % Abs Neuts (Manual) Lymphocytes # (Manual) Atyp Lymphs # (Manual) Monocytes # (Manual) Eosinophils # (Manual) Metamyelocytes # Myelocytes # Nucleated RBCs Toxic Granulation Toxic Vacuolation Platelet Estimate Large Platelets Plt Morphology Comment RBC Morphology Polychromasia Hypochromasia Basophilic Stippling Microcytosis Macrocytosis Spherocytes Target Cells Tear Drop Cells Ovalocytes Stomatocytes Apex Cells Acanthocytes (Spur) Schistocytes Absolute Retic Percent Retic Immature Retic Fraction Retic Hgb Equivalent PT INR D-Dimer High Sensitivty VBG pH 7.35 VBG pCO2 49 VBG pO2 47 VBG HCO3 28 H VBG O2 Saturation 64.0 VBG Base Excess 2.1 Sodium Potassium Chloride Carbon Dioxide Anion Gap BUN Creatinine Estim Creat Clear Calc Estimated GFR POC Glucose 66 108 Random Glucose Haptoglobin Lactic Acid Lactic Acid F/U @ 2Hr Calcium Phosphorus Magnesium Total Bilirubin AST ALT Alkaline Phosphatase Lactate Dehydrogenase Total Protein Albumin Procalcitonin Blood Type Antibody Screen ALDO, Polyspecific Positive ALDO Work-up Crossmatch 06/27/24 06/27/24 06/27/24 04:16 04:22 05:10 WBC 31.2 H* RBC 2.90 L Hgb 6.3 L* Hct 20.9 L* MCV 72.1 L MCH 21.7 L MCHC 30.1 L RDW 25.0 H Plt Count 144 L MPV 9.8 Immature Gran % (Auto) Cancelled Neut % (Auto) Cancelled Lymph % (Auto) Cancelled [place] % (Auto) Cancelled Eos % (Auto) Cancelled Baso % (Auto) Cancelled Lymph # (Auto) Cancelled [place] # (Auto) Cancelled Eos # (Auto) Cancelled Baso # (Auto) Cancelled Abs Immat Gran (auto) Cancelled Absolute Neuts (auto) Cancelled Absolute Nucleated RBC 0.930 H Nucleated RBC % (auto) 3.0 H Neutrophils % (Manual) 71 Band Neutrophils % 6 H Lymphocytes % (Manual) 10 L Atypical Lymphs % (Man) Monocytes % (Manual) 5 Eosinophils % (Manual) Metamyelocytes % 4 Myelocytes % 4 Abs Neuts (Manual) 24.0 H Lymphocytes # (Manual) 3.1 Atyp Lymphs # (Manual) Monocytes # (Manual) 1.6 H Eosinophils # (Manual) Metamyelocytes # 1.2 Myelocytes # 1.2 Nucleated RBCs 3 H Toxic Granulation Toxic Vacuolation Platelet Estimate SLIGHTLY DECREASED Large Platelets PRESENT Plt Morphology Comment NOTED RBC Morphology NOTED Polychromasia 1+ (0-2) Hypochromasia 1+ (5-14) Basophilic Stippling Microcytosis 1+ (5-14) Macrocytosis Spherocytes 1+ (0-2) Target Cells Tear Drop Cells Ovalocytes 1+ (5-14) Stomatocytes 1+ (5-14) Apex Cells Acanthocytes (Spur) Schistocytes 1+ (0-2) Absolute Retic Percent Retic Immature Retic Fraction Retic Hgb Equivalent PT INR D-Dimer High Sensitivty VBG pH 7.53 H VBG pCO2 47 VBG pO2 55 VBG HCO3 40 H VBG O2 Saturation Not Reportable VBG Base Excess 15.9 Sodium 138 Potassium 4.7 Chloride 93 L Carbon Dioxide 19 L Anion Gap 31 H BUN 35 H Creatinine 4.33 H* Estim Creat Clear Calc 21.1 Estimated GFR 10 POC Glucose Random Glucose 66 Haptoglobin Lactic Acid Lactic Acid F/U @ 2Hr Calcium 7.8 L Phosphorus 6.5 H Magnesium 2.1 Total Bilirubin 7.8 H AST 1762 H ALT 299 H Alkaline Phosphatase 156 H Lactate Dehydrogenase Total Protein 6.5 Albumin 2.9 L Procalcitonin Blood Type Antibody Screen ALDO, Polyspecific Positive ALDO Work-up Crossmatch 06/27/24 06/27/24 06/27/24 06:14 09:07 11:02 WBC RBC Hgb Hct MCV MCH MCHC RDW Plt Count MPV Immature Gran % (Auto) Neut % (Auto) Lymph % (Auto) [place] % (Auto) Eos % (Auto) Baso % (Auto) Lymph # (Auto) [place] # (Auto) Eos # (Auto) Baso # (Auto) Abs Immat Gran (auto) Absolute Neuts (auto) Absolute Nucleated RBC Nucleated RBC % (auto) Neutrophils % (Manual) Band Neutrophils % Lymphocytes % (Manual) Atypical Lymphs % (Man) Monocytes % (Manual) Eosinophils % (Manual) Metamyelocytes % Myelocytes % Abs Neuts (Manual) Lymphocytes # (Manual) Atyp Lymphs # (Manual) Monocytes # (Manual) Eosinophils # (Manual) Metamyelocytes # Myelocytes # Nucleated RBCs Toxic Granulation Toxic Vacuolation Platelet Estimate Large Platelets Plt Morphology Comment RBC Morphology Polychromasia Hypochromasia Basophilic Stippling Microcytosis Macrocytosis Spherocytes Target Cells Tear Drop Cells Ovalocytes Stomatocytes Apex Cells Acanthocytes (Spur) Schistocytes Absolute Retic Percent Retic Immature Retic Fraction Retic Hgb Equivalent PT INR D-Dimer High Sensitivty VBG pH VBG pCO2 VBG pO2 VBG HCO3 VBG O2 Saturation VBG Base Excess Sodium Potassium Chloride Carbon Dioxide Anion Gap BUN Creatinine Estim Creat Clear Calc Estimated GFR POC Glucose 68 96 Random Glucose Haptoglobin Lactic Acid 11.0 H* Lactic Acid F/U @ 2Hr Calcium Phosphorus Magnesium Total Bilirubin AST ALT Alkaline Phosphatase Lactate Dehydrogenase Total Protein Albumin Procalcitonin Blood Type Antibody Screen ALDO, Polyspecific Positive ALDO Work-up Crossmatch 06/27/24 12:43 WBC RBC Hgb 8.7 L D Hct 28.2 L D MCV MCH MCHC RDW Plt Count MPV Immature Gran % (Auto) Neut % (Auto) Lymph % (Auto) [place] % (Auto) Eos % (Auto) Baso % (Auto) Lymph # (Auto) [place] # (Auto) Eos # (Auto) Baso # (Auto) Abs Immat Gran (auto) Absolute Neuts (auto) Absolute Nucleated RBC Nucleated RBC % (auto) Neutrophils % (Manual) Band Neutrophils % Lymphocytes % (Manual) Atypical Lymphs % (Man) Monocytes % (Manual) Eosinophils % (Manual) Metamyelocytes % Myelocytes % Abs Neuts (Manual) Lymphocytes # (Manual) Atyp Lymphs # (Manual) Monocytes # (Manual) Eosinophils # (Manual) Metamyelocytes # Myelocytes # Nucleated RBCs Toxic Granulation Toxic Vacuolation Platelet Estimate Large Platelets Plt Morphology Comment RBC Morphology Polychromasia Hypochromasia Basophilic Stippling Microcytosis Macrocytosis Spherocytes Target Cells Tear Drop Cells Ovalocytes Stomatocytes Lauren Cells Acanthocytes (Spur) Schistocytes Absolute Retic 0.094 Percent Retic 2.5 H Immature Retic Fraction 38.1 H Retic Hgb Equivalent 22.2 L PT 26.0 H INR 2.2 H D-Dimer High Sensitivty 5082 VBG pH VBG pCO2 VBG pO2 VBG HCO3 VBG O2 Saturation VBG Base Excess Sodium Potassium Chloride Carbon Dioxide Anion Gap BUN Creatinine Estim Creat Clear Calc Estimated GFR POC Glucose Random Glucose Haptoglobin 193 Lactic Acid Lactic Acid F/U @ 2Hr 10.3 H* Calcium Phosphorus Magnesium Total Bilirubin AST ALT Alkaline Phosphatase Lactate Dehydrogenase 4090 H Total Protein Albumin Procalcitonin Blood Type Antibody Screen ALDO, Polyspecific Positive ALDO Work-up Crossmatch Microbiology Microbiology Results: Microbiology 06/26/24 09:18 Trachea Gram Stain - Final 06/26/24 09:18 Trachea Sputum Culture - Preliminary No growth to date. 06/24/24 19:04 Blood - Venous Blood Culture - Preliminary No growth after 48 hours. 06/24/24 19:04 Blood - Venous Blood Culture - Preliminary No growth after 48 hours. 06/23/24 03:59 Blood - Venous Blood Culture - Preliminary No growth after 48 hours. 06/23/24 05:30 Blood - Venous Blood Culture - Preliminary No growth after 48 hours. 06/18/24 15:26 Blood - Venous Blood Culture - Final No growth after 5 days. 06/18/24 15:26 Blood - Venous Blood Culture - Final No growth after 5 days. 06/18/24 20:10 Urine clean catch - Clean Catch Midstream Urine Culture - Final Procedures Date of Service Date of Service: 06/27/24 Assessment & Plan Assessment and plan (1) JAYSON (acute kidney injury): Status: Acute Plan JAYSON likely due to ATN ( DDx- direct infiltration of B cells into kidney versus tumor lysis( unlikely) Work up in progress; S/P HD catheter ; Next HD tomorrow morning Had liver lesions biopsied ; Likely will need renal biopsy as well when stable cortisol level reviewed given hypotension and hyperkalemia; Surgical F/U ECHO reviewed ; C/W rest of current supportive care for now Progress Note: Quality Stroke Does the patient have a stroke diagnosis?: No
[2024-06-27 14:50] LABS: Reflex Lactate? 2 Y
--- NOTE | 2024-06-27 15:04 | MHC.CM.PN ---
Pt remains intubated in ICU: liver fx worsening: Scheduled for an abdominal US today: transfused 2 units PRBC: MD to discuss goals of care w/family later today. SNF and [facility] referrals placed. CM to follow
--- NOTE | 2024-06-27 16:05 | HO.WOUND ---
Wound Consult: Initial 59yr old female admitted to [facility] on?06/18/24 - See progress notes and H&P for detailed history.? Wound consult placed for wound noted to gluteal slit? - Chart review reveals pt remains critically ill and ICU Provider is pursuing transfer to outside facility for needs of care.? The wound located with in the gluteal fold and pictured below is likely caused in part by Ischemia.? Acute Skin Failure can be caused by ischemia secondary to poor perfusion related to septic shock with multiorgan faliure.? The patients ICU stay is marked by septic shock necessitating vasopressors, respiratory failure necessitating ventilatory support, and renal insufficiency, per chart review Dr. Albarran note from 06/27/24. Patient is critically ill with multiple organ failures including acute encephalopathy, acute hepatic failure, acute renal failure, acute respiratory failure, septic shock. Acute Skin Failure may occur despite the implementation of proper preventative measures.? The scattered areas of irregular shapes and patterns are not typical of those found in pressure injuries alone along with location of pigmented tissue.? Intergluteal Fold Etiology: Unclear Etiology: Suspect Ischemia component related to Acute Skin Failure Wound Bed: Darkly purple pigmented tissue within gluteal fold - of note patient is obese and the gluteal skin has a deep fold likely protecting the tissue from pressure injury in this given location - dark nonblanchable - at the very base of the fold there is open partial thicknes tissue loss noted - this appears more consistent with Moisture and not pressure - surrounded by intact dark purple blue irregular nonblanchable irregular pattern tissue. note the patient is on a cooling blanket the pattern pigmentation remains blanchable Drainage / Odor: None Edges: ? Irregular Shyla wound: ? Scattered areas of dark maroon purple blue intact tissue not consistent with pressure injury No Odor,No Induration, No Fluctuance? and No ascending erythema noted Pain: pt is intubated and sedated Goals of Treatment: ? Off Load Pressure - Triad to act as a barrier to friction and moisture - continue to use all preventative measures in place (Currently in place - Bariatric mattress, Will consider Specialty agility bed, Off Loading with pillows - chart review turns and repositions were consistently carried out leading up to first observation of skin changes.? Nutrition recommendations in place and following.? Wedges in use. Urinary containment devices in place along with disposable dry flow pads in place. Inpatient wound care nurse will continue to follow. Recommendations: 1.Turn and Reposition every 2 hours continue use of wedges. 2. Off Load all bony prominences with use of pillows, wedges and heel boots - preventative foams when needed. Heel Protector boots in use at this time. 3. Monitor for incontinence and moisture control - Barrier cream in use. 4. Provide adequate and supplemental nutrition - Nutrition is following and recommendations in place. 5. Continue Bariatric specialty mattress in place. Will consider Bariatric BETH bed from [facility]. 6. Sacrum - Cleanse with PH balanced wipes, pat dry. Apply Triad layer to tissue.? Do not remove all of paste between applications as this may cause further damage to wound bed.? Re-consult wound care Nurse for wound deterioration or wound changes.
[2024-06-27 16:30] LABS: ~Lactic Acid-LAB USE ONLY 9.7 mmol/L (0.5-2.0)
[2024-06-27] MEDS: cefEPime HCl 1 GM in 0.9 % Sodium Chloride 50 ML IV (17:10)
[2024-06-27 17:22] LABS: Glucose, Whole Blood 71 mg/dL (60-115)
[2024-06-27] MEDS: dexmedeTOMIDidine HCL/NS 400 MCG/100 ML INFUS..BTL 8.01 MCG IVCONT (19:18)
[2024-06-27] MEDS: bisacodyL 10 MG SUPP.RECT PR (21:02)
[2024-06-27] MEDS: dexmedeTOMIDidine HCL/NS 400 MCG/100 ML INFUS..BTL 60.04 MCG IVCONT (23:23)
[2024-06-27] MEDS: Albuterol Sulfate (0.083%) 2.5 MG/3 ML VIAL.NEB INHALE (23:31)
[2024-06-27 23:39] LABS: Glucose, Whole Blood 69 mg/dL (60-115)
[2024-06-28] VITALS (43 sets, daily range): BP systolic 91–122; BP diastolic 41–82; PULSE 60–84; RESP 10–30; TEMP 34.8–39.1; O2SAT 89–98; BMI 59.2
[2024-06-28] MEDS: fentaNYL citrate/PF 100 MCG/2 ML VIAL IVPUSH (00:44)
[2024-06-28] MEDS: dexmedeTOMIDidine HCL/NS 400 MCG/100 ML INFUS..BTL 60.04 MCG IVCONT ×10 (00:45→23:06)
[2024-06-28] MEDS: Sodium Bicarbonate 8.4% 150 MEQ in Dextrose 5 % 850 ML 100 MEQ IV (02:06)
[2024-06-28] MEDS: metroNIDAZOLE/NS 500 MG/100 ML PIGGYBACK 100 MG IV ×2 (02:06→10:45)
[2024-06-28] MEDS: Rocuronium Bromide 50 MG/5 ML VIAL IVPUSH (02:34)
[2024-06-28] MEDS: Albuterol/Iprat 2.5/0.5MG 3 ML AMPUL.NEB INHALE ×4 (02:52→22:55)
[2024-06-28] MEDS: Phenylephrine HCL 100 MG in 0.9 % Sodium Chloride 250 ML 37.46 MG IVCONT ×4 (04:03→23:41)
[2024-06-28 04:32] LABS: VBG Base Excess -0.4 mmol/L; VBG HCO3 25 mmol/L (22-26); VBG pCO2 45 mmHg; VBG pH 7.35 (7.32-7.43); VBG pO2 56 mmHg
[2024-06-28] MEDS: propofoL 200 MG/20 ML VIAL 50 MG IVPUSH (04:33)
[2024-06-28 04:35] LABS: PLT CLUMP 1
[2024-06-28 04:37] LABS: Hematocrit 27.3 % (37.0-47.0); Hemoglobin 8.6 g/dl (12.0-16.0); Mean Corpuscular HGB Conc 31.5 g/dl (31.0-35.0); Mean Corpuscular Hemoglobin 23.5 pg (27.0-33.0); Mean Corpuscular Volume 74.6 fL (80.0-98.0); Mean Platelet Volume 11.1 fL (9.4-12.3); Red Blood Count 3.66 X10*6/uL (4.20-5.50); Red Cell Distribution Width 26.6 % (11.0-16.0)
[2024-06-28 04:38] LABS: NRBC Pct Auto 4.4 /100WBC (0.0-0.2); PLT ABN DIST 1; Platelet Count 128 X10*3/uL (160-400); WBC ABN SCTR FOR CBC 1
[2024-06-28 04:39] LABS: White Blood Count 33.5 X10*3/uL (4.8-10.8)
[2024-06-28 04:47] LABS: Band Neutrophils Percent 21 % (3-5); Basophils Abs Manual 0.3 X10*3/uL (0.0-0.2); Basophils Percent Manual 1 % (0-2); Eosinophils Absolute Manual 0.7 X10*3/uL (0.0-0.4); Eosinophils Percent Manual 2 % (0-4); Lymphocytes Percent Manual 3 % (20-40); Metamyelocytes Absolute 1.7 X10*3/uL; Metamyelocytes Percent 5 %; Monocytes Percent Manual 9 % (2-11); Myelocytes Percent 3 %; Neutrophils Absolute Manual 25.8 X10*3/uL (2.0-8.3); Neutrophils Percent Manual 56 % (45-73); Nucleated Red Blood Cells 4 /100WBC (0-0)
[2024-06-28 04:48] LABS: Venous Blood Gas Refer to POC result
[2024-06-28 04:49] LABS: Hypochromasia 1+ (5-14) /OIF; Microcytosis 1+ (5-14) /OIF; Ovalocytes 1+ (5-14) /OIF; Polychromasia 1+ (0-2) /OIF; RBC Morphology NOTED; Spherocytes 1+ (0-2) /OIF; Target Cells 1+ (5-14) /OIF
[2024-06-28 04:51] LABS: Burr Cells 1+ (0-2) /OIF; Large Platelet PRESENT; Platelet Estimate DECREASED (NORMAL); Platelet Morphology Comment NOTED; Toxic Vacuolation PRESENT
[2024-06-28 04:52] LABS: Stomatocytes 1+ (5-14) /OIF
--- NOTE | 2024-06-28 04:52 | PC.NURSE ---
assumed care 1900 pt intubated sedated with precedex, increasing precedex requirements at start of shift due to decreased vent compliance. pt stacking breaths dropping O2 sats to 88-86%, PA made aware, RT to bedside multiple times. pt received updrafts, 100mg IVP fent, with little effect. pt then received, 50 of Rodrigo with some relief, pt having thick greenish inline secretions, pt received another updraft and RT lavaged and suctioned, pt received 50mg of prop, PA increased peep to 10, RT changed vent to ACVC +, CXR ordered. pt synchronous with vent at this time. Plan for dialysis early today.
[2024-06-28 05:07] LABS: Alanine Aminotransferase 443 U/L (0-31); Albumin Level 2.6 g/dL (3.5-5.0); Alkaline Phosphatase 146 U/L (39-117); Anion Gap 30 (12-20); Aspartate Amino Transferase 2884 U/L (5-31); Bilirubin Total 8.8 mg/dL (0.0-1.0); Blood Urea Nitrogen 49 mg/dL (9-16); Calcium 7.6 mg/dL (8.4-10.2); Carbon Dioxide 21 mmol/L (22-29); Chloride 91 mmol/L (96-108); Creatinine Clr Calc Pharmacy 17.9; Estimated Glomerular Filt Rate 9; Glucose Random 68 mg/dL (60-115); Magnesium 2.1 mg/dL (1.6-2.6); Phosphorus 7.5 mg/dL (2.7-4.5); Potassium 4.6 mmol/L (3.3-5.1); Sodium 137 mmol/L (135-145); Total Protein 6.2 g/dL (6.5-8.0)
[2024-06-28] MEDS: Heparin Sodium,Porcine 5,000 UNIT/ML VIAL 5000 UNIT INTRACATH (05:40)
[2024-06-28] MEDS: 0.9 % Sodium Chloride Flush 3 ML SYRINGE IVFLUSH ×3 (08:03→23:11)
[2024-06-28] MEDS: Digoxin 0.5 MG/2 ML AMPUL 0.125 MG IVPUSH (08:16)
[2024-06-28] MEDS: Chlorhexidine Gluc Oral Rinse 15 ML MOUTHWASH BUCCAL ×3 (08:17→21:01)
[2024-06-28] MEDS: Famotidine/PF 20 MG/2 ML VIAL IVPUSH (08:17)
--- NOTE | 2024-06-28 08:28 | PM.CCPN ---
Subjective Subjective Date of Service: 06/28/24 Critical Care Time (minutes): 35 Comment: had episodes of desaturations overnight with difficulty in oxygenation so emergent hemodialysis was initiated. Patient is also on Peter-Synephrine for vasopressor support She is on Precedex for anxiolysis Worsening liver function, possibly due to congestion? We will repeat labs after dialysis Physical Exam Vital Signs: Vital Signs: Last Vital Signs Temp 100.6 F H 06/28/24 08:00 Pulse 72 06/28/24 08:00 Resp 25 H 06/28/24 08:00 BP 91/66 06/28/24 08:00 Pulse Ox 97 06/28/24 08:00 O2 Del Method Mechanical Ventil ation 06/28/24 08:00 O2 Flow Rate 15 06/24/24 20:00 FiO2 45 06/28/24 08:00 BMI result Body Mass Index 59.2 General: In acute acute distress, ill appearing and tired appearing Nutritional Appearance: Morbidly obese Eyes: appearance normal, both eyes and all related structures; Alignment and Position: alignment normal and position normal Neck: No lymphadenopathy, no thyromegaly Resp: bilateral air entry equal, occasional added sounds present Cardio: Regular rate, regular rhythm; Heart sounds: S1 normal heart sound present and S2 normal heart sound present GI: soft, nontender, palpable soft bowel loops through herniation, no hepatosplenomegaly : bladder normal to inspection, bladder normal to palpation, no renal angle tenderness Skin: no rashes or lesions noted and elasticity normal Neuro: No focal deficits Objective Data Labs 06/28/24 04:15 06/28/24 04:15 Labs: Laboratory Results - last 24 hr 06/26/24 06/27/24 06/27/24 10:15 09:07 11:02 WBC RBC Hgb Hct MCV MCH MCHC RDW Plt Count MPV Immature Gran % (Auto) Neut % (Auto) Lymph % (Auto) [place] % (Auto) Eos % (Auto) Baso % (Auto) Lymph # (Auto) [place] # (Auto) Eos # (Auto) Baso # (Auto) Abs Immat Gran (auto) Absolute Neuts (auto) Absolute Nucleated RBC Nucleated RBC % (auto) Neutrophils % (Manual) Band Neutrophils % Lymphocytes % (Manual) Monocytes % (Manual) Eosinophils % (Manual) Basophils % (Manual) Metamyelocytes % Myelocytes % Abs Neuts (Manual) Lymphocytes # (Manual) Monocytes # (Manual) Eosinophils # (Manual) Basophils # (Manual) Metamyelocytes # Myelocytes # Nucleated RBCs Toxic Vacuolation Platelet Estimate Large Platelets Plt Morphology Comment RBC Morphology Polychromasia Hypochromasia Microcytosis Spherocytes Target Cells Ovalocytes Stomatocytes Lauren Cells Absolute Retic Percent Retic Immature Retic Fraction Retic Hgb Equivalent PT INR D-Dimer High Sensitivty VBG pH VBG pCO2 VBG pO2 VBG HCO3 VBG O2 Saturation VBG Base Excess Sodium Potassium Chloride Carbon Dioxide Anion Gap BUN Creatinine Estim Creat Clear Calc Estimated GFR POC Glucose 96 Random Glucose Haptoglobin Lactic Acid 11.0 H* Lactic Acid F/U @ 2Hr Lactic Acid F/U @ 4Hr Calcium Phosphorus Magnesium Total Bilirubin AST ALT Alkaline Phosphatase Lactate Dehydrogenase Total Protein Albumin Blood Type B Positive Antibody Screen NEGATIVE ALDO, Polyspecific NEGATIVE Positive ALDO Work-up TNP Crossmatch See Detail 06/27/24 06/27/24 06/27/24 12:43 15:47 17:02 WBC RBC Hgb 8.7 L D Hct 28.2 L D MCV MCH MCHC RDW Plt Count MPV Immature Gran % (Auto) Neut % (Auto) Lymph % (Auto) [place] % (Auto) Eos % (Auto) Baso % (Auto) Lymph # (Auto) [place] # (Auto) Eos # (Auto) Baso # (Auto) Abs Immat Gran (auto) Absolute Neuts (auto) Absolute Nucleated RBC Nucleated RBC % (auto) Neutrophils % (Manual) Band Neutrophils % Lymphocytes % (Manual) Monocytes % (Manual) Eosinophils % (Manual) Basophils % (Manual) Metamyelocytes % Myelocytes % Abs Neuts (Manual) Lymphocytes # (Manual) Monocytes # (Manual) Eosinophils # (Manual) Basophils # (Manual) Metamyelocytes # Myelocytes # Nucleated RBCs Toxic Vacuolation Platelet Estimate Large Platelets Plt Morphology Comment RBC Morphology Polychromasia Hypochromasia Microcytosis Spherocytes Target Cells Ovalocytes Stomatocytes Lauren Cells Absolute Retic 0.094 Percent Retic 2.5 H Immature Retic Fraction 38.1 H Retic Hgb Equivalent 22.2 L PT 26.0 H INR 2.2 H D-Dimer High Sensitivty 5082 VBG pH VBG pCO2 VBG pO2 VBG HCO3 VBG O2 Saturation VBG Base Excess Sodium Potassium Chloride Carbon Dioxide Anion Gap BUN Creatinine Estim Creat Clear Calc Estimated GFR POC Glucose 71 Random Glucose Haptoglobin 193 Lactic Acid Lactic Acid F/U @ 2Hr 10.3 H* Lactic Acid F/U @ 4Hr 9.7 H* Calcium Phosphorus Magnesium Total Bilirubin AST ALT Alkaline Phosphatase Lactate Dehydrogenase 4090 H Total Protein Albumin Blood Type Antibody Screen ALDO, Polyspecific Positive ALDO Work-up Crossmatch 06/27/24 06/28/24 06/28/24 23:28 04:15 04:28 WBC 33.5 H* RBC 3.66 L D Hgb 8.6 L Hct 27.3 L MCV 74.6 L MCH 23.5 L MCHC 31.5 RDW 26.6 H Plt Count 128 L MPV 11.1 Immature Gran % (Auto) Cancelled Neut % (Auto) Cancelled Lymph % (Auto) Cancelled [place] % (Auto) Cancelled Eos % (Auto) Cancelled Baso % (Auto) Cancelled Lymph # (Auto) Cancelled [place] # (Auto) Cancelled Eos # (Auto) Cancelled Baso # (Auto) Cancelled Abs Immat Gran (auto) Cancelled Absolute Neuts (auto) Cancelled Absolute Nucleated RBC 1.460 H Nucleated RBC % (auto) 4.4 H Neutrophils % (Manual) 56 Band Neutrophils % 21 H Lymphocytes % (Manual) 3 L Monocytes % (Manual) 9 Eosinophils % (Manual) 2 Basophils % (Manual) 1 Metamyelocytes % 5 Myelocytes % 3 Abs Neuts (Manual) 25.8 H Lymphocytes # (Manual) 1.0 L Monocytes # (Manual) 3.0 H Eosinophils # (Manual) 0.7 H Basophils # (Manual) 0.3 H Metamyelocytes # 1.7 Myelocytes # 1.0 Nucleated RBCs 4 H Toxic Vacuolation PRESENT Platelet Estimate DECREASED Large Platelets PRESENT Plt Morphology Comment NOTED RBC Morphology NOTED Polychromasia 1+ (0-2) Hypochromasia 1+ (5-14) Microcytosis 1+ (5-14) Spherocytes 1+ (0-2) Target Cells 1+ (5-14) Ovalocytes 1+ (5-14) Stomatocytes 1+ (5-14) Lauren Cells 1+ (0-2) Absolute Retic Percent Retic Immature Retic Fraction Retic Hgb Equivalent PT INR D-Dimer High Sensitivty VBG pH 7.35 VBG pCO2 45 VBG pO2 56 VBG HCO3 25 VBG O2 Saturation 76.0 VBG Base Excess -0.4 Sodium 137 Potassium 4.6 Chloride 91 L Carbon Dioxide 21 L Anion Gap 30 H BUN 49 H Creatinine 5.09 H* Estim Creat Clear Calc 17.9 Estimated GFR 9 POC Glucose 69 Random Glucose 68 Haptoglobin Lactic Acid Lactic Acid F/U @ 2Hr Lactic Acid F/U @ 4Hr Calcium 7.6 L Phosphorus 7.5 H Magnesium 2.1 Total Bilirubin 8.8 H AST 2884 H ALT 443 H Alkaline Phosphatase 146 H Lactate Dehydrogenase Total Protein 6.2 L Albumin 2.6 L Blood Type Antibody Screen ALDO, Polyspecific Positive ALDO Work-up Crossmatch Microbiology Microbiology Results: Microbiology 06/23/24 05:30 Blood - Venous Blood Culture - Final No growth after 5 days. 06/26/24 09:18 Trachea Gram Stain - Final 06/26/24 09:18 Trachea Sputum Culture - Preliminary No growth to date. 06/24/24 19:04 Blood - Venous Blood Culture - Preliminary No growth after 48 hours. 06/24/24 19:04 Blood - Venous Blood Culture - Preliminary No growth after 48 hours. 06/23/24 03:59 Blood - Venous Blood Culture - Preliminary No growth after 48 hours. 06/18/24 15:26 Blood - Venous Blood Culture - Final No growth after 5 days. 06/18/24 15:26 Blood - Venous Blood Culture - Final No growth after 5 days. 06/18/24 20:10 Urine clean catch - Clean Catch Midstream Urine Culture - Final Progress Note: A&P Assessment and plan (1) HTN (hypertension): Status: Acute (2) Afib: Status: Acute (3) Shock: Status: Acute (4) JAYSON (acute kidney injury): Status: Acute (5) Acute respiratory failure: Status: Acute (6) Asthma: Status: Acute Plan Neuro: Acute encephalopathy possibly due to metabolic encephalopathy from significant multiorgan failure Precedex for anxiolysis will taper as tolerated, Precedex and fentanyl has been tapered off. Close neurological status monitoring in the ICU every hour Cardiac: Shock: Possibly secondary to severe sepsis Levophed switched to phenylephrine due to atrial fibrillation with RVR Atrial fibrillation with RVR: Currently reverted back to sinus rhythm Amiodarone stopped due to hepatotoxicity, switched to low dose digoxin Heparin for anticoagulation discontinued due to drop in hemoglobin TTE showed normal LV systolic function, hyperdynamic LV, mild pulmonary hypertension Respiratory: Acute hypoxemic respiratory failure due to bilateral pneumonia Currently on ventilator support On PRVC mode FiO2 40, PEEP 5, TV 360, RR 20. Poor candidate for weaning from ventilator due to multiorgan failure Peak pressures and plateau pressures are under the curve Ventilator management bundle with head end elevation, aspiration precaution, chlorhexidine mouthwash, daily awakening trials, daily spontaneous breathing trials GI: Worsening transaminitis: Possibly secondary to congestion versus multiorgan failure from severe sepsis versus tumor infiltration. As she is getting hemodialysis with 6 L ultrafiltrate we will repeat LFT after dialysis to see if it improves. Hepatitis panel negative; we will get liver ultrasound to look for any other new etiologies CT abdomen shows diffuse hepatic metastasis, status post liver biopsy pathology pending Bowel hernia: Patient has significant ventral hernia containing bowel loops. General surgery involved, opined for conservative management for now given severity of illness CTA abdomen and pelvis showed ventral hernia with no definite evidence of ischemia. Renal: Acute kidney injury possibly secondary to ATN versus tumor infiltration kidney Complement levels and ANCA normal Currently on renal replacement therapy, receiving an emergent session where hemodialysis this morning due to volume overload We will closely monitor I's and O's Avoid nephrotoxic medications Lactic acidosis: secondary to multiorgan failure vs possible metastatic malignancy. on bicarb drip to correct acidosis, stopped this morning due to concerns for volume overload. Heme: Chronic anemia, closely monitor H&H, transfuse for hemoglobin less than 7 grams/deciliter, receiving 2 units of PRBC this morning for drop in Hb. LDH upto 4090, pending hemolysis labs Leukocytosis: Secondary to hematological malignancy versus infection Endocrine: Blood sugars under control Sliding scale insulin as needed Hypothyroidism: Continue levothyroxine Infectious disease: Pancultures negative so far, pending beta D glucan On broad-spectrum empiric coverage including vancomycin, cefepime, Flagyl Continue fluconazole for antifungal coverage as patient has persistent multiorgan failure despite being on multiple antibiotics Pending procalcitonin levels Musculoskeletal: Decubitus ulcer prevention protocol Lines: hemodialysis catheter Prophylaxis: heparin, famotidine Patient is critically ill with multiple organ failures including acute encephalopathy, acute hepatic failure, acute renal failure, acute respiratory failure, septic shock. Critical care time spent is about 50 minutes on managing this critically ill patient mostly on ventilator management, close hemodynamic monitoring while patient is on dialysis and hypotensive on vasopressor support, sedation management and this time is excluding any procedural time. Quality Stroke Does the patient have a stroke diagnosis?: No VTE Prior VTE?: No VTE Risk Level:: Medical - moderate - high VTE Device Contraindication: N/A - Device Ordered VTE Drug Contraindication: Treatment Not Indicated
[2024-06-28] MEDS: Dextrose 50 % 25 GM/50 ML SYRINGE IVPUSH ×2 (11:17→18:05)
[2024-06-28] MEDS: Fluconazole in NaCl,Iso-Osm 100 MG in Container,Empty 0 ML 50 MG IV (11:22)
--- NOTE | 2024-06-28 11:54 | MHC.CLN ---
F/U PT REMAINS INTUBATED AND SEDATED-NOTED PROPOFOL REMAINS OFF RECEIVING TF NEPRO AT 30ML/HR PROVIDES 1296KCALS (23KCALS/KG BASED ON IBW), 58G PROTEIN, 523ML FREE WATER FROM FORMULA MONITOR TOLERANCE AND LYTES
[2024-06-28 12:17] LABS: Glucose, Whole Blood 82 mg/dL (60-115)
[2024-06-28 12:17] LABS: Glucose, Whole Blood 48 mg/dL (60-115)
--- NOTE | 2024-06-28 13:14 | P.PNNP_ITS ---
Subjective Subjective Date of Service: 06/28/24 Interval history: Events noted. Worsening liver function. Remains dialysis dependent. Had liver biopsy 2 days ago. Seen on HD Physical Exam 2 Vital Signs: Vital Signs: Last Vital Signs Temp 101.5 F H 06/28/24 12:00 Pulse 76 06/28/24 12:00 Resp 25 H 06/28/24 12:00 BP 120/82 06/28/24 12:00 Pulse Ox 91 L 06/28/24 12:00 O2 Del Method Mechanical Ventil ation 06/28/24 12:00 O2 Flow Rate 15 06/24/24 20:00 FiO2 45 06/28/24 12:00 BMI result Body Mass Index 59.2 Const: General: no acute distress Neck: Other: HD catheter in place Resp: Auscultation: diminished lung sounds Cardio: Rate: regular rate GI: Palpation (GI): Soft to palpation Neuro: Other: Intubated and sedated Objective Data Labs 06/28/24 04:15 06/28/24 04:15 Labs: Laboratory Results - last 24 hr 06/26/24 06/27/24 06/27/24 10:15 12:43 15:47 WBC RBC Hgb Hct MCV MCH MCHC RDW Plt Count MPV Immature Gran % (Auto) Neut % (Auto) Lymph % (Auto) [place] % (Auto) Eos % (Auto) Baso % (Auto) Lymph # (Auto) [place] # (Auto) Eos # (Auto) Baso # (Auto) Abs Immat Gran (auto) Absolute Neuts (auto) Absolute Nucleated RBC Nucleated RBC % (auto) Neutrophils % (Manual) Band Neutrophils % Lymphocytes % (Manual) Monocytes % (Manual) Eosinophils % (Manual) Basophils % (Manual) Metamyelocytes % Myelocytes % Abs Neuts (Manual) Lymphocytes # (Manual) Monocytes # (Manual) Eosinophils # (Manual) Basophils # (Manual) Metamyelocytes # Myelocytes # Nucleated RBCs Toxic Vacuolation Platelet Estimate Large Platelets Plt Morphology Comment RBC Morphology Polychromasia Hypochromasia Microcytosis Spherocytes Target Cells Ovalocytes Stomatocytes Lauren Cells VBG pH VBG pCO2 VBG pO2 VBG HCO3 VBG O2 Saturation VBG Base Excess Sodium Potassium Chloride Carbon Dioxide Anion Gap BUN Creatinine Estim Creat Clear Calc Estimated GFR POC Glucose Random Glucose Haptoglobin 193 Lactic Acid F/U @ 2Hr 10.3 H* Lactic Acid F/U @ 4Hr 9.7 H* Calcium Phosphorus Magnesium Total Bilirubin AST ALT Alkaline Phosphatase Total Protein Albumin Positive ALDO Work-up TNP 06/27/24 06/27/24 06/28/24 17:02 23:28 04:15 WBC 33.5 H* RBC 3.66 L D Hgb 8.6 L Hct 27.3 L MCV 74.6 L MCH 23.5 L MCHC 31.5 RDW 26.6 H Plt Count 128 L MPV 11.1 Immature Gran % (Auto) Cancelled Neut % (Auto) Cancelled Lymph % (Auto) Cancelled [place] % (Auto) Cancelled Eos % (Auto) Cancelled Baso % (Auto) Cancelled Lymph # (Auto) Cancelled [place] # (Auto) Cancelled Eos # (Auto) Cancelled Baso # (Auto) Cancelled Abs Immat Gran (auto) Cancelled Absolute Neuts (auto) Cancelled Absolute Nucleated RBC 1.460 H Nucleated RBC % (auto) 4.4 H Neutrophils % (Manual) 56 Band Neutrophils % 21 H Lymphocytes % (Manual) 3 L Monocytes % (Manual) 9 Eosinophils % (Manual) 2 Basophils % (Manual) 1 Metamyelocytes % 5 Myelocytes % 3 Abs Neuts (Manual) 25.8 H Lymphocytes # (Manual) 1.0 L Monocytes # (Manual) 3.0 H Eosinophils # (Manual) 0.7 H Basophils # (Manual) 0.3 H Metamyelocytes # 1.7 Myelocytes # 1.0 Nucleated RBCs 4 H Toxic Vacuolation PRESENT Platelet Estimate DECREASED Large Platelets PRESENT Plt Morphology Comment NOTED RBC Morphology NOTED Polychromasia 1+ (0-2) Hypochromasia 1+ (5-14) Microcytosis 1+ (5-14) Spherocytes 1+ (0-2) Target Cells 1+ (5-14) Ovalocytes 1+ (5-14) Stomatocytes 1+ (5-14) [place] Cells 1+ (0-2) VBG pH VBG pCO2 VBG pO2 VBG HCO3 VBG O2 Saturation VBG Base Excess Sodium 137 Potassium 4.6 Chloride 91 L Carbon Dioxide 21 L Anion Gap 30 H BUN 49 H Creatinine 5.09 H* Estim Creat Clear Calc 17.9 Estimated GFR 9 POC Glucose 71 69 Random Glucose 68 Haptoglobin Lactic Acid F/U @ 2Hr Lactic Acid F/U @ 4Hr Calcium 7.6 L Phosphorus 7.5 H Magnesium 2.1 Total Bilirubin 8.8 H AST 2884 H ALT 443 H Alkaline Phosphatase 146 H Total Protein 6.2 L Albumin 2.6 L Positive ALDO Work-up 06/28/24 06/28/24 06/28/24 04:28 11:13 11:49 WBC RBC Hgb Hct MCV MCH MCHC RDW Plt Count MPV Immature Gran % (Auto) Neut % (Auto) Lymph % (Auto) [place] % (Auto) Eos % (Auto) Baso % (Auto) Lymph # (Auto) [place] # (Auto) Eos # (Auto) Baso # (Auto) Abs Immat Gran (auto) Absolute Neuts (auto) Absolute Nucleated RBC Nucleated RBC % (auto) Neutrophils % (Manual) Band Neutrophils % Lymphocytes % (Manual) Monocytes % (Manual) Eosinophils % (Manual) Basophils % (Manual) Metamyelocytes % Myelocytes % Abs Neuts (Manual) Lymphocytes # (Manual) Monocytes # (Manual) Eosinophils # (Manual) Basophils # (Manual) Metamyelocytes # Myelocytes # Nucleated RBCs Toxic Vacuolation Platelet Estimate Large Platelets Plt Morphology Comment RBC Morphology Polychromasia Hypochromasia Microcytosis Spherocytes Target Cells Ovalocytes Stomatocytes Lauren Cells VBG pH 7.35 VBG pCO2 45 VBG pO2 56 VBG HCO3 25 VBG O2 Saturation 76.0 VBG Base Excess -0.4 Sodium Potassium Chloride Carbon Dioxide Anion Gap BUN Creatinine Estim Creat Clear Calc Estimated GFR POC Glucose 48 L* 82 Random Glucose Haptoglobin Lactic Acid F/U @ 2Hr Lactic Acid F/U @ 4Hr Calcium Phosphorus Magnesium Total Bilirubin AST ALT Alkaline Phosphatase Total Protein Albumin Positive ALDO Work-up Microbiology Microbiology Results: Microbiology 06/23/24 03:59 Blood - Venous Blood Culture - Final No growth after 5 days. 06/26/24 09:18 Trachea Gram Stain - Final 06/26/24 09:18 Trachea Sputum Culture - Final No growth. 06/23/24 05:30 Blood - Venous Blood Culture - Final No growth after 5 days. 06/24/24 19:04 Blood - Venous Blood Culture - Preliminary No growth after 48 hours. 06/24/24 19:04 Blood - Venous Blood Culture - Preliminary No growth after 48 hours. 06/18/24 15:26 Blood - Venous Blood Culture - Final No growth after 5 days. 06/18/24 15:26 Blood - Venous Blood Culture - Final No growth after 5 days. 06/18/24 20:10 Urine clean catch - Clean Catch Midstream Urine Culture - Final Procedures Date of Service Date of Service: 06/28/24 Assessment & Plan Assessment and plan (1) JAYSON (acute kidney injury): Status: Acute Plan JAYSON likely due to ATN ( DDx- direct infiltration of B cells into kidney versus tumor lysis( unlikely) Work up in progress; S/P HD catheter ; Seen on HD this morning Had liver lesions biopsied ; Likely will need renal biopsy as well when stable cortisol level reviewed given hypotension and hyperkalemia; Surgical F/U ECHO reviewed ; C/W rest of current supportive care for now Progress Note: Quality Stroke Does the patient have a stroke diagnosis?: No
--- NOTE | 2024-06-28 14:13 | MHC.CM.PN ---
Pt continues care in ICU : on vent support, HD on M, W, F and now w/shock liver. Plan is to redraw labs after HD session to assess LFT's. CM to follow
[2024-06-28] MEDS: dexmedeTOMIDidine HCL/NS 400 MCG/100 ML INFUS..BTL 52.03 MCG IVCONT ×4 (14:14→19:47)
--- NOTE | 2024-06-28 15:01 | HO.WOUND ---
Addendum entered by Kerrie Mckee RN 06/29/24 12:04: 06/29/24 @ 1200 Agility bed arrived to unit and direct care team will work to transition patient to bed. The bolsters were not given and [facility] to deliver bolsters. conf # [id number]. Original Note: Wound Consult: Follow up 59yr old female admitted to [facility] on?06/18/24 - See progress notes and H&P for detailed history.? Wound consult follow up for wound noted to gluteal slit?and skin integrity assessment - Chart review reveals pt remains critically ill and ICU Provider is pursuing transfer to outside facility for needs of care.? The wound located with in the gluteal fold and pictured below is likely caused in part by Ischemia.? Acute Skin Failure can be caused by ischemia secondary to poor perfusion related to septic shock with multiorgan faliure.? The patients ICU stay is marked by septic shock necessitating vasopressors, respiratory failure necessitating ventilatory support, and renal insufficiency, per chart review Dr. Albarran note from 06/27/24. Patient is critically ill with multiple organ failures including acute encephalopathy, acute hepatic failure, acute renal failure, acute respiratory failure, septic shock. Acute Skin Failure may occur despite the implementation of proper preventative measures.? The scattered areas of irregular shapes and patterns are not typical of those found in pressure injuries alone along with location of pigmented tissue.? Todays assessment 06/28/24 Gluteal fold area remains unchanged however you can see from photo above the area of concern is within the skin fold. The surround tissue yesterday was documented as - surrounded by intact dark purple blue irregular nonblanchable irregular pattern tissue. Note the patient was on a cooling blanket the pattern pigmentation remains blanchable The patient has since been removed from the cooling blanket with observed improvement in skin pigmentation. There are no blisters nor evidence of skin injury to the tissue at this time since removal of the cooling blanket. Discussed with direct care team since the patient remains febrile at this time a cooling blanket may be reinstated if clinically indicated. The integrity of the skin should be monitored closely and ensure proper measures are taken such as protective layer between cooling blanket and patient, barrier creams and or lotions to aid in maintaining skin integrity, turning and repositioning Q2hrs. Agility Specialty BETH mattress ordered today - discussed with staff to convert patient to agility bed when arrives. No new topical recommendations needed at this time. 06/27/24 06/27/24 Intergluteal Fold Etiology: Unclear Etiology: Suspect Ischemia component related to Acute Skin Failure Wound Bed: Darkly purple pigmented tissue within gluteal fold - of note patient is obese and the gluteal skin has a deep fold likely protecting the tissue from pressure injury in this given location - dark nonblanchable - at the very base of the fold there is open partial thickness tissue loss noted - this appears more consistent with Moisture and not pressure Drainage / Odor: None Edges: ? Irregular Shyla wound: ? Scattered areas of dark maroon purple blue intact tissue not consistent with pressure injury No Odor,No Induration, No Fluctuance? and No ascending erythema noted Pain: pt is intubated and sedated Goals of Treatment: ? Off Load Pressure - Triad to act as a barrier to friction and moisture - continue to use all preventative measures in place (Currently in place - Bariatric mattress, Will consider Specialty latrobe hospital bed, Off Loading with pillows - chart review turns and repositions were consistently carried out leading up to first observation of skin changes.? Nutrition recommendations in place and following.? Wedges in use. Urinary containment devices in place along with disposable dry flow pads in place. Inpatient wound care nurse will continue to follow. Recommendations: 1.Turn and Reposition every 2 hours continue use of wedges. 2. Off Load all bony prominences with use of pillows, wedges and heel boots - preventative foams when needed. Heel Protector boots in use at this time. 3. Monitor for incontinence and moisture control - Barrier cream in use. 4. Provide adequate and supplemental nutrition - Nutrition is following and recommendations in place. 5. Continue Bariatric specialty mattress in place. Will consider Bariatric BETH bed from [facility]. 6. Sacrum - Cleanse with PH balanced wipes, pat dry. Apply Triad layer to tissue.? Do not remove all of paste between applications as this may cause further damage to wound bed.? Re-consult wound care Nurse for wound deterioration or wound changes.
[2024-06-28 15:48] LABS: Alanine Aminotransferase 392 U/L (0-31); Albumin Level 2.2 g/dL (3.5-5.0); Alkaline Phosphatase 135 U/L (39-117); Anion Gap 27 (12-20); Aspartate Amino Transferase 2337 U/L (5-31); Bilirubin Total 8.4 mg/dL (0.0-1.0); Blood Urea Nitrogen 34 mg/dL (9-16); Calcium 7.2 mg/dL (8.4-10.2); Carbon Dioxide 20 mmol/L (22-29); Chloride 99 mmol/L (96-108); Creatinine Clr Calc Pharmacy 24.8; Estimated Glomerular Filt Rate 12; Glucose Random 47 mg/dL (60-115); Potassium 5.6 mmol/L (3.3-5.1); Sodium 140 mmol/L (135-145); Total Protein 5.4 g/dL (6.5-8.0)
[2024-06-28] MEDS: Dextrose 10 % 1,000 ML 50 ML IVCONT (16:32)
[2024-06-28] MEDS: cefEPime HCl 1 GM in 0.9 % Sodium Chloride 50 ML IV (17:32)
[2024-06-28 17:36] LABS: MRSA Nasal PCR NEGATIVE (Negative); SA Nasal PCR NEGATIVE (Negative)
[2024-06-28 17:55] LABS: Glucose, Whole Blood 46 mg/dL (60-115)
[2024-06-28 18:43] LABS: Vancomycin Random 12.5 mcg/mL (15-20)
[2024-06-28 19:20] LABS: Glucose, Whole Blood 83 mg/dL (60-115)
[2024-06-28] MEDS: vancomycin HCL 500 MG in 0.9 % Sodium Chloride 100 ML 110 MG IV (19:31)
--- NOTE | 2024-06-28 19:31 | PC.NURSE ---
Pt began day w/ dialysis session, 6L removed. Pt had presistent hypoglycemia, d50 and d10 administered per mar. Pt's temps mahsa throughout the day. Ice was ineffective, cooling blanket used beginning at approx 1730. Wound nurse determined cooling blanket appropriate as there were some concerns regarding pt's skin. Wound nurse ordered airloss bariatric bed for pt. Pt remains of pressors and precedex, see mar for details.
[2024-06-28] MEDS: bisacodyL 10 MG SUPP.RECT PR (21:01)
--- NOTE | 2024-06-28 23:00 | P.PNID_ITS ---
Subjective Subjective Date of Service: 06/28/24 Critical Care Time (minutes): 15 Comment: patient remains in ICU she is on HD,6 liters off PEEP yesterday three hours high grade fever Objective Data Labs 06/28/24 04:15 06/28/24 15:03 Labs: Laboratory Results - last 24 hr 06/27/24 06/28/24 06/28/24 23:28 04:15 04:28 WBC 33.5 H* RBC 3.66 L D Hgb 8.6 L Hct 27.3 L MCV 74.6 L MCH 23.5 L MCHC 31.5 RDW 26.6 H Plt Count 128 L MPV 11.1 Immature Gran % (Auto) Cancelled Neut % (Auto) Cancelled Lymph % (Auto) Cancelled [place] % (Auto) Cancelled Eos % (Auto) Cancelled Baso % (Auto) Cancelled Lymph # (Auto) Cancelled [place] # (Auto) Cancelled Eos # (Auto) Cancelled Baso # (Auto) Cancelled Abs Immat Gran (auto) Cancelled Absolute Neuts (auto) Cancelled Absolute Nucleated RBC 1.460 H Nucleated RBC % (auto) 4.4 H Neutrophils % (Manual) 56 Band Neutrophils % 21 H Lymphocytes % (Manual) 3 L Monocytes % (Manual) 9 Eosinophils % (Manual) 2 Basophils % (Manual) 1 Metamyelocytes % 5 Myelocytes % 3 Abs Neuts (Manual) 25.8 H Lymphocytes # (Manual) 1.0 L Monocytes # (Manual) 3.0 H Eosinophils # (Manual) 0.7 H Basophils # (Manual) 0.3 H Metamyelocytes # 1.7 Myelocytes # 1.0 Nucleated RBCs 4 H Toxic Vacuolation PRESENT Platelet Estimate DECREASED Large Platelets PRESENT Plt Morphology Comment NOTED RBC Morphology NOTED Polychromasia 1+ (0-2) Hypochromasia 1+ (5-14) Microcytosis 1+ (5-14) Spherocytes 1+ (0-2) Target Cells 1+ (5-14) Ovalocytes 1+ (5-14) Stomatocytes 1+ (5-14) [place] Cells 1+ (0-2) VBG pH 7.35 VBG pCO2 45 VBG pO2 56 VBG HCO3 25 VBG O2 Saturation 76.0 VBG Base Excess -0.4 Sodium 137 Potassium 4.6 Chloride 91 L Carbon Dioxide 21 L Anion Gap 30 H BUN 49 H Creatinine 5.09 H* Estim Creat Clear Calc 17.9 Estimated GFR 9 POC Glucose 69 Random Glucose 68 Calcium 7.6 L Phosphorus 7.5 H Magnesium 2.1 Total Bilirubin 8.8 H AST 2884 H ALT 443 H Alkaline Phosphatase 146 H Total Protein 6.2 L Albumin 2.6 L Nasal Screen MRSA (PCR) Nasal S. aureus Screen Nasal MRSA/S.aureus Interp Random Vancomycin 06/28/24 06/28/24 06/28/24 11:13 11:49 15:03 WBC RBC Hgb Hct MCV MCH MCHC RDW Plt Count MPV Immature Gran % (Auto) Neut % (Auto) Lymph % (Auto) [place] % (Auto) Eos % (Auto) Baso % (Auto) Lymph # (Auto) [place] # (Auto) Eos # (Auto) Baso # (Auto) Abs Immat Gran (auto) Absolute Neuts (auto) Absolute Nucleated RBC Nucleated RBC % (auto) Neutrophils % (Manual) Band Neutrophils % Lymphocytes % (Manual) Monocytes % (Manual) Eosinophils % (Manual) Basophils % (Manual) Metamyelocytes % Myelocytes % Abs Neuts (Manual) Lymphocytes # (Manual) Monocytes # (Manual) Eosinophils # (Manual) Basophils # (Manual) Metamyelocytes # Myelocytes # Nucleated RBCs Toxic Vacuolation Platelet Estimate Large Platelets Plt Morphology Comment RBC Morphology Polychromasia Hypochromasia Microcytosis Spherocytes Target Cells Ovalocytes Stomatocytes [place] Cells VBG pH VBG pCO2 VBG pO2 VBG HCO3 VBG O2 Saturation VBG Base Excess Sodium 140 Potassium 5.6 H D Chloride 99 Carbon Dioxide 20 L Anion Gap 27 H BUN 34 H Creatinine 3.70 H Estim Creat Clear Calc 24.8 Estimated GFR 12 POC Glucose 48 L* 82 Random Glucose 47 L* Calcium 7.2 L Phosphorus Magnesium 2.0 Total Bilirubin 8.4 H AST 2337 H ALT 392 H Alkaline Phosphatase 135 H Total Protein 5.4 L Albumin 2.2 L Nasal Screen MRSA (PCR) Nasal S. aureus Screen Nasal MRSA/S.aureus Interp Random Vancomycin 06/28/24 06/28/24 06/28/24 16:16 17:42 18:17 WBC RBC Hgb Hct MCV MCH MCHC RDW Plt Count MPV Immature Gran % (Auto) Neut % (Auto) Lymph % (Auto) [place] % (Auto) Eos % (Auto) Baso % (Auto) Lymph # (Auto) [place] # (Auto) Eos # (Auto) Baso # (Auto) Abs Immat Gran (auto) Absolute Neuts (auto) Absolute Nucleated RBC Nucleated RBC % (auto) Neutrophils % (Manual) Band Neutrophils % Lymphocytes % (Manual) Monocytes % (Manual) Eosinophils % (Manual) Basophils % (Manual) Metamyelocytes % Myelocytes % Abs Neuts (Manual) Lymphocytes # (Manual) Monocytes # (Manual) Eosinophils # (Manual) Basophils # (Manual) Metamyelocytes # Myelocytes # Nucleated RBCs Toxic Vacuolation Platelet Estimate Large Platelets Plt Morphology Comment RBC Morphology Polychromasia Hypochromasia Microcytosis Spherocytes Target Cells Ovalocytes Stomatocytes [place] Cells VBG pH VBG pCO2 VBG pO2 VBG HCO3 VBG O2 Saturation VBG Base Excess Sodium Potassium Chloride Carbon Dioxide Anion Gap BUN Creatinine Estim Creat Clear Calc Estimated GFR POC Glucose 46 L* Random Glucose Calcium Phosphorus Magnesium Total Bilirubin AST ALT Alkaline Phosphatase Total Protein Albumin Nasal Screen MRSA (PCR) NEGATIVE Nasal S. aureus Screen NEGATIVE Nasal MRSA/S.aureus Interp SEE NOTE Random Vancomycin 12.5 L 06/28/24 19:17 WBC RBC Hgb Hct MCV MCH MCHC RDW Plt Count MPV Immature Gran % (Auto) Neut % (Auto) Lymph % (Auto) [place] % (Auto) Eos % (Auto) Baso % (Auto) Lymph # (Auto) [place] # (Auto) Eos # (Auto) Baso # (Auto) Abs Immat Gran (auto) Absolute Neuts (auto) Absolute Nucleated RBC Nucleated RBC % (auto) Neutrophils % (Manual) Band Neutrophils % Lymphocytes % (Manual) Monocytes % (Manual) Eosinophils % (Manual) Basophils % (Manual) Metamyelocytes % Myelocytes % Abs Neuts (Manual) Lymphocytes # (Manual) Monocytes # (Manual) Eosinophils # (Manual) Basophils # (Manual) Metamyelocytes # Myelocytes # Nucleated RBCs Toxic Vacuolation Platelet Estimate Large Platelets Plt Morphology Comment RBC Morphology Polychromasia Hypochromasia Microcytosis Spherocytes Target Cells Ovalocytes Stomatocytes [place] Cells VBG pH VBG pCO2 VBG pO2 VBG HCO3 VBG O2 Saturation VBG Base Excess Sodium Potassium Chloride Carbon Dioxide Anion Gap BUN Creatinine Estim Creat Clear Calc Estimated GFR POC Glucose 83 Random Glucose Calcium Phosphorus Magnesium Total Bilirubin AST ALT Alkaline Phosphatase Total Protein Albumin Nasal Screen MRSA (PCR) Nasal S. aureus Screen Nasal MRSA/S.aureus Interp Random Vancomycin Microbiology Microbiology Results: Microbiology 06/23/24 03:59 Blood - Venous Blood Culture - Final No growth after 5 days. 06/26/24 09:18 Trachea Gram Stain - Final 06/26/24 09:18 Trachea Sputum Culture - Final No growth. 06/23/24 05:30 Blood - Venous Blood Culture - Final No growth after 5 days. 06/24/24 19:04 Blood - Venous Blood Culture - Preliminary No growth after 48 hours. 06/24/24 19:04 Blood - Venous Blood Culture - Preliminary No growth after 48 hours. 06/18/24 15:26 Blood - Venous Blood Culture - Final No growth after 5 days. 06/18/24 15:26 Blood - Venous Blood Culture - Final No growth after 5 days. 06/18/24 20:10 Urine clean catch - Clean Catch Midstream Urine Culture - Final Physical Exam 2 Vital Signs: Vital Signs: Last Vital Signs Temp 102.3 F H 06/28/24 20:00 Pulse 84 06/28/24 22:00 Resp 23 H 06/28/24 22:00 BP 116/52 L 06/28/24 22:00 Pulse Ox 93 06/28/24 22:00 O2 Del Method Mechanical Ventil ation 06/28/24 22:00 O2 Flow Rate 15 06/24/24 20:00 FiO2 40 06/28/24 22:00 BMI result Body Mass Index 59.2 Const: General: cooperative HEENT: Head: Yes normal to inspection Face and sinus: Yes normal facial exam Mouth: Normal oral and palatal mucosa present Teeth and gingiva: d entition normal Eyes: General: appearance normal, both eyes and all related structures P upils: Equal, round and reactive pupils present Resp: Effort & Inspection: normal respiratory effort Cardio: Rate: regular rate Rhythm: regular rhythm GI: Palpation (GI): Soft to palpation and nontender : General: Yes no CVA tenderness Back/Spine/Pelvis: Back: no CVA tenderness Skin: General skin exam: no rashes or lesions noted Neuro: General: moves all extremities Cranial nerves: Yes Equal, round and reactive pupils present Extrem: General: Yes normal to inspection Psych: Appearance: grossly normal Assessment and Plan Assessment and plan (1) Acute respiratory failure: Problem details: Fever may be due to drug fever or malignancy,antibiotics dont seem to be making difference Status: Acute (2) Liver masses: Problem details: stop antibiotics liver biopsy pending Status: Acute Time Spent With Patient Time: Total time managing care of this patient today ____ minutes.
[2024-06-28 23:22] LABS: Glucose, Whole Blood 67 mg/dL (60-115)
[2024-06-29] VITALS (51 sets, daily range): BP systolic 67–127; BP diastolic 30–62; PULSE 69–84; RESP 20–30; TEMP 34.9–38.4; O2SAT 90–97
[2024-06-29] MEDS: dexmedeTOMIDidine HCL/NS 400 MCG/100 ML INFUS..BTL 60.04 MCG IVCONT ×7 (00:37→09:58)
[2024-06-29 02:18] LABS: Glucose, Whole Blood 106 mg/dL (60-115)
[2024-06-29] MEDS: Dextrose 10 % 1,000 ML 50 ML IVCONT ×2 (03:15→20:31)
[2024-06-29] MEDS: Phenylephrine HCL 100 MG in 0.9 % Sodium Chloride 250 ML 24.98 MG IVCONT (03:18)
[2024-06-29 05:14] LABS: VBG Base Excess -0.3 mmol/L; VBG HCO3 26 mmol/L (22-26); VBG pCO2 50 mmHg; VBG pH 7.32 (7.32-7.43); VBG pO2 50 mmHg
[2024-06-29 05:23] LABS: Glucose, Whole Blood 107 mg/dL (60-115)
[2024-06-29 06:06] LABS: Alanine Aminotransferase 426 U/L (0-31); Albumin Level 2.4 g/dL (3.5-5.0); Alkaline Phosphatase 164 U/L (39-117); Anion Gap 28 (12-20); Aspartate Amino Transferase 2300 U/L (5-31); Blood Urea Nitrogen 40 mg/dL (9-16); Calcium 7.7 mg/dL (8.4-10.2); Carbon Dioxide 20 mmol/L (22-29); Chloride 94 mmol/L (96-108); Creatinine Clr Calc Pharmacy 21.1; Estimated Glomerular Filt Rate 10; Glucose Random 109 mg/dL (60-115); Magnesium 2.1 mg/dL (1.6-2.6); Phosphorus 6.6 mg/dL (2.7-4.5); Potassium 4.5 mmol/L (3.3-5.1); Sodium 137 mmol/L (135-145); Total Protein 5.9 g/dL (6.5-8.0)
[2024-06-29] MEDS: Levothyroxine Sodium 100 MCG/5 ML VIAL 300 MCG IVPUSH (06:17)
[2024-06-29 06:19] LABS: Hematocrit 28.1 % (37.0-47.0); PLT CLUMP 1
[2024-06-29 06:22] LABS: Hemoglobin 8.6 g/dl (12.0-16.0); Mean Corpuscular HGB Conc 30.6 g/dl (31.0-35.0); Mean Corpuscular Hemoglobin 23.2 pg (27.0-33.0); Mean Corpuscular Volume 75.9 fL (80.0-98.0); Red Cell Distribution Width 28.2 % (11.0-16.0)
[2024-06-29 06:23] LABS: NRBC Pct Auto 3.9 /100WBC (0.0-0.2); PLT ABN DIST 1; Platelet Count 87 X10*3/uL (160-400); WBC ABN SCTR FOR CBC 1; White Blood Count 28.7 X10*3/uL (4.8-10.8)
[2024-06-29] MEDS: Albuterol/Iprat 2.5/0.5MG 3 ML AMPUL.NEB INHALE ×4 (06:25→18:59)
[2024-06-29 06:37] LABS: Venous Blood Gas Refer to POC result
[2024-06-29 07:16] LABS: Atypical Lymph Absolute Manual 1.1 x10*3/uL; Atypical Lymphs Percent Manual 4 % (0-6); Band Neutrophils Percent 12 % (3-5); Eosinophils Absolute Manual 0.9 X10*3/uL (0.0-0.4); Eosinophils Percent Manual 3 % (0-4); Lymphocytes Absolute Manual 1.7 X10*3/uL (1.2-4.9); Lymphocytes Percent Manual 6 % (20-40); Metamyelocytes Percent 7 %; Monocytes Absolute Manual 4.9 X10*3/uL (0.1-1.2); Monocytes Percent Manual 17 % (2-11); Myelocytes Absolute 1.1 X10*/uL; Myelocytes Percent 4 %; Neutrophils Absolute Manual 16.4 X10*3/uL (2.0-8.3); Neutrophils Percent Manual 45 % (45-73); Nucleated Red Blood Cells 3 /100WBC (0-0); Promyelocytes Absolute 0.6 X10*3/uL; Promyelocytes Percent 2 %
[2024-06-29 07:20] LABS: Basophilic Stippling 1+ (0-2) /OIF; Hypochromasia 1+ (5-14) /OIF; Large Platelet PRESENT; Macrocytosis 1+ (5-14) /OIF; Microcytosis 1+ (5-14) /OIF; Platelet Estimate DECREASED (NORMAL); Platelet Morphology Comment NOTED; Polychromasia 1+ (0-2) /OIF; RBC Morphology NOTED; Target Cells 1+ (5-14) /OIF; Toxic Vacuolation PRESENT
[2024-06-29 07:22] LABS: Ovalocytes 1+ (5-14) /OIF
[2024-06-29] MEDS: 0.9 % Sodium Chloride Flush 3 ML SYRINGE IVFLUSH ×3 (08:31→20:28)
[2024-06-29] MEDS: Digoxin 0.5 MG/2 ML AMPUL 0.125 MG IVPUSH (08:40)
[2024-06-29] MEDS: Famotidine/PF 20 MG/2 ML VIAL IVPUSH (08:40)
[2024-06-29] MEDS: Chlorhexidine Gluc Oral Rinse 15 ML MOUTHWASH BUCCAL ×3 (08:40→20:30)
--- NOTE | 2024-06-29 08:54 | P.PNCC_ITS ---
Subjective Subjective Date of Service: 06/29/24 Critical Care Time (minutes): 40 Comment: On ventilator Support this morning On Precedex for anxiolysis On Levophed for vasopressor support LFTs slightly improving Physical Exam 2 Vital Signs: Vital Signs: Last Vital Signs Temp 99.4 F 06/29/24 08:00 Pulse 71 06/29/24 08:00 Resp 28 H 06/29/24 08:00 BP 107/52 L 06/29/24 08:00 Pulse Ox 92 06/29/24 08:00 O2 Del Method Mechanical Ventil ation 06/29/24 08:00 O2 Flow Rate 15 06/24/24 20:00 FiO2 40 06/29/24 08:00 BMI result Body Mass Index 59.2 General: Morbidly obese lady in acute distress lying unresponsive connected to the ventilator Nutritional Appearance: Morbidly obese Eyes: appearance normal, both eyes and all related structures; Alignment and Position: alignment normal and position normal Neck: No lymphadenopathy, no thyromegaly Resp: bilateral air entry equal, occasional added sounds present Cardio: Regular rate, regular rhythm; Heart sounds: S1 normal heart sound present and S2 normal heart sound present GI: soft, nontender bowel loops felt through the ventral hernia, nontender, no guarding, no hepatosplenomegaly : bladder normal to inspection, bladder normal to palpation, no renal angle tenderness Skin: no rashes or lesions noted and elasticity normal Neuro: Sedated, no focal deficits Objective Data Labs 06/29/24 04:38 06/29/24 04:38 Labs: Laboratory Results - last 24 hr 06/28/24 06/28/24 06/28/24 11:13 11:49 15:03 WBC RBC Hgb Hct MCV MCH MCHC RDW Plt Count MPV Immature Gran % (Auto) Neut % (Auto) Lymph % (Auto) [place] % (Auto) Eos % (Auto) Baso % (Auto) Lymph # (Auto) [place] # (Auto) Eos # (Auto) Baso # (Auto) Abs Immat Gran (auto) Absolute Neuts (auto) Absolute Nucleated RBC Nucleated RBC % (auto) Neutrophils % (Manual) Band Neutrophils % Lymphocytes % (Manual) Atypical Lymphs % (Man) Monocytes % (Manual) Eosinophils % (Manual) Metamyelocytes % Myelocytes % Promyelocytes % Abs Neuts (Manual) Lymphocytes # (Manual) Atyp Lymphs # (Manual) Monocytes # (Manual) Eosinophils # (Manual) Metamyelocytes # Myelocytes # Promyelocytes # Nucleated RBCs Toxic Vacuolation Platelet Estimate Large Platelets Plt Morphology Comment RBC Morphology Polychromasia Hypochromasia Basophilic Stippling Microcytosis Macrocytosis Target Cells Ovalocytes VBG pH VBG pCO2 VBG pO2 VBG HCO3 VBG O2 Saturation VBG Base Excess Sodium 140 Potassium 5.6 H D Chloride 99 Carbon Dioxide 20 L Anion Gap 27 H BUN 34 H Creatinine 3.70 H Estim Creat Clear Calc 24.8 Estimated GFR 12 POC Glucose 48 L* 82 Random Glucose 47 L* Calcium 7.2 L Phosphorus Magnesium 2.0 Total Bilirubin 8.4 H AST 2337 H ALT 392 H Alkaline Phosphatase 135 H Total Protein 5.4 L Albumin 2.2 L Nasal Screen MRSA (PCR) Nasal S. aureus Screen Nasal MRSA/S.aureus Interp Random Vancomycin 06/28/24 06/28/24 06/28/24 16:16 17:42 18:17 WBC RBC Hgb Hct MCV MCH MCHC RDW Plt Count MPV Immature Gran % (Auto) Neut % (Auto) Lymph % (Auto) [place] % (Auto) Eos % (Auto) Baso % (Auto) Lymph # (Auto) [place] # (Auto) Eos # (Auto) Baso # (Auto) Abs Immat Gran (auto) Absolute Neuts (auto) Absolute Nucleated RBC Nucleated RBC % (auto) Neutrophils % (Manual) Band Neutrophils % Lymphocytes % (Manual) Atypical Lymphs % (Man) Monocytes % (Manual) Eosinophils % (Manual) Metamyelocytes % Myelocytes % Promyelocytes % Abs Neuts (Manual) Lymphocytes # (Manual) Atyp Lymphs # (Manual) Monocytes # (Manual) Eosinophils # (Manual) Metamyelocytes # Myelocytes # Promyelocytes # Nucleated RBCs Toxic Vacuolation Platelet Estimate Large Platelets Plt Morphology Comment RBC Morphology Polychromasia Hypochromasia Basophilic Stippling Microcytosis Macrocytosis Target Cells Ovalocytes VBG pH VBG pCO2 VBG pO2 VBG HCO3 VBG O2 Saturation VBG Base Excess Sodium Potassium Chloride Carbon Dioxide Anion Gap BUN Creatinine Estim Creat Clear Calc Estimated GFR POC Glucose 46 L* Random Glucose Calcium Phosphorus Magnesium Total Bilirubin AST ALT Alkaline Phosphatase Total Protein Albumin Nasal Screen MRSA (PCR) NEGATIVE Nasal S. aureus Screen NEGATIVE Nasal MRSA/S.aureus Interp SEE NOTE Random Vancomycin 12.5 L 06/28/24 06/28/24 06/29/24 19:17 23:08 02:12 WBC RBC Hgb Hct MCV MCH MCHC RDW Plt Count MPV Immature Gran % (Auto) Neut % (Auto) Lymph % (Auto) [place] % (Auto) Eos % (Auto) Baso % (Auto) Lymph # (Auto) [place] # (Auto) Eos # (Auto) Baso # (Auto) Abs Immat Gran (auto) Absolute Neuts (auto) Absolute Nucleated RBC Nucleated RBC % (auto) Neutrophils % (Manual) Band Neutrophils % Lymphocytes % (Manual) Atypical Lymphs % (Man) Monocytes % (Manual) Eosinophils % (Manual) Metamyelocytes % Myelocytes % Promyelocytes % Abs Neuts (Manual) Lymphocytes # (Manual) Atyp Lymphs # (Manual) Monocytes # (Manual) Eosinophils # (Manual) Metamyelocytes # Myelocytes # Promyelocytes # Nucleated RBCs Toxic Vacuolation Platelet Estimate Large Platelets Plt Morphology Comment RBC Morphology Polychromasia Hypochromasia Basophilic Stippling Microcytosis Macrocytosis Target Cells Ovalocytes VBG pH VBG pCO2 VBG pO2 VBG HCO3 VBG O2 Saturation VBG Base Excess Sodium Potassium Chloride Carbon Dioxide Anion Gap BUN Creatinine Estim Creat Clear Calc Estimated GFR POC Glucose 83 67 106 Random Glucose Calcium Phosphorus Magnesium Total Bilirubin AST ALT Alkaline Phosphatase Total Protein Albumin Nasal Screen MRSA (PCR) Nasal S. aureus Screen Nasal MRSA/S.aureus Interp Random Vancomycin 06/29/24 06/29/24 06/29/24 04:38 04:42 05:20 WBC 28.7 H RBC 3.70 L Hgb 8.6 L Hct 28.1 L MCV 75.9 L MCH 23.2 L MCHC 30.6 L RDW 28.2 H Plt Count 87 L D MPV Not Reportable Immature Gran % (Auto) Cancelled Neut % (Auto) Cancelled Lymph % (Auto) Cancelled [place] % (Auto) Cancelled Eos % (Auto) Cancelled Baso % (Auto) Cancelled Lymph # (Auto) Cancelled [place] # (Auto) Cancelled Eos # (Auto) Cancelled Baso # (Auto) Cancelled Abs Immat Gran (auto) Cancelled Absolute Neuts (auto) Cancelled Absolute Nucleated RBC 1.110 H Nucleated RBC % (auto) 3.9 H Neutrophils % (Manual) 45 Band Neutrophils % 12 H Lymphocytes % (Manual) 6 L Atypical Lymphs % (Man) 4 Monocytes % (Manual) 17 H Eosinophils % (Manual) 3 Metamyelocytes % 7 Myelocytes % 4 Promyelocytes % 2 Abs Neuts (Manual) 16.4 H Lymphocytes # (Manual) 1.7 Atyp Lymphs # (Manual) 1.1 Monocytes # (Manual) 4.9 H Eosinophils # (Manual) 0.9 H Metamyelocytes # 2.0 Myelocytes # 1.1 Promyelocytes # 0.6 Nucleated RBCs 3 H Toxic Vacuolation PRESENT Platelet Estimate DECREASED Large Platelets PRESENT Plt Morphology Comment NOTED RBC Morphology NOTED Polychromasia 1+ (0-2) Hypochromasia 1+ (5-14) Basophilic Stippling 1+ (0-2) Microcytosis 1+ (5-14) Macrocytosis 1+ (5-14) Target Cells 1+ (5-14) Ovalocytes 1+ (5-14) VBG pH 7.32 VBG pCO2 50 VBG pO2 50 VBG HCO3 26 VBG O2 Saturation 70.0 VBG Base Excess -0.3 Sodium 137 Potassium 4.5 Chloride 94 L Carbon Dioxide 20 L Anion Gap 28 H BUN 40 H Creatinine 4.36 H* Estim Creat Clear Calc 21.1 Estimated GFR 10 POC Glucose 107 Random Glucose 109 Calcium 7.7 L D Phosphorus 6.6 H Magnesium 2.1 Total Bilirubin 10.0 H AST 2300 H ALT 426 H Alkaline Phosphatase 164 H Total Protein 5.9 L Albumin 2.4 L Nasal Screen MRSA (PCR) Nasal S. aureus Screen Nasal MRSA/S.aureus Interp Random Vancomycin Microbiology Microbiology Results: Microbiology 06/23/24 03:59 Blood - Venous Blood Culture - Final No growth after 5 days. 06/26/24 09:18 Trachea Gram Stain - Final 06/26/24 09:18 Trachea Sputum Culture - Final No growth. 06/23/24 05:30 Blood - Venous Blood Culture - Final No growth after 5 days. 06/24/24 19:04 Blood - Venous Blood Culture - Preliminary No growth after 48 hours. 06/24/24 19:04 Blood - Venous Blood Culture - Preliminary No growth after 48 hours. 06/18/24 15:26 Blood - Venous Blood Culture - Final No growth after 5 days. 06/18/24 15:26 Blood - Venous Blood Culture - Final No growth after 5 days. 06/18/24 20:10 Urine clean catch - Clean Catch Midstream Urine Culture - Final Progress Note: A&P Assessment and plan (1) HTN (hypertension): Status: Acute (2) Afib: Status: Acute (3) Shock: Status: Acute (4) JAYSON (acute kidney injury): Status: Acute (5) Acute respiratory failure: Status: Acute (6) Asthma: Status: Acute Plan Neuro: Acute encephalopathy possibly due to metabolic encephalopathy from significant multiorgan failure Precedex for anxiolysis will taper as tolerated Close neurological status monitoring in the ICU every hour Cardiac: Shock: Possibly secondary to severe sepsis Levophed switched to phenylephrine due to atrial fibrillation with RVR Atrial fibrillation with RVR: Currently reverted back to sinus rhythm Amiodarone stopped due to hepatotoxicity, switched to low dose digoxin Heparin for anticoagulation discontinued due to drop in hemoglobin; currently in sinus rhythm if she goes back to AFib we will restart heparin TTE showed normal LV systolic function, hyperdynamic LV, mild pulmonary hypertension Respiratory: Acute hypoxemic respiratory failure due to bilateral pneumonia Currently on ventilator support On PRVC mode FiO2 40, PEEP 6, TV 360, RR 20. Poor candidate for weaning from ventilator due to multiorgan failure. Peak pressures and plateau pressures are under the curve Ventilator management bundle with head end elevation, aspiration precaution, chlorhexidine mouthwash, daily awakening trials, daily spontaneous breathing trials GI: Shock liver: Possibly secondary to congestion versus multiorgan failure from severe sepsis with tumor infiltration. LFTs slightly better, down to 2300 today Hepatitis panel negative; we will get liver ultrasound to look for any other new etiologies CT abdomen shows diffuse hepatic metastasis, status post liver biopsy pathology pending Bowel hernia: Patient has significant ventral hernia containing bowel loops. General surgery involved, opined for conservative management for now given severity of illness CTA abdomen and pelvis showed ventral hernia with no definite evidence of ischemia. Renal: Acute kidney injury possibly secondary to ATN versus tumor infiltration kidney Complement levels and ANCA normal Currently on renal replacement therapy, HD yesterday, planned for UF today and HD tomorrow We will closely monitor I's and O's Avoid nephrotoxic medications Lactic acidosis: secondary to multiorgan failure vs possible metastatic malignancy with poor clearance secondary to hepatic failure. on bicarb drip to correct acidosis, stopped this morning due to concerns for volume overload. Heme: Chronic anemia, closely monitor H&H, transfuse for hemoglobin less than 7 grams/deciliter, receiving 2 units of PRBC this morning for drop in Hb. LDH upto 4090, pending hemolysis labs Leukocytosis: Secondary to hematological malignancy versus infection Endocrine: Blood sugars under control Sliding scale insulin as needed Hypothyroidism: Continue levothyroxine Infectious disease: Pancultures negative so far, pending beta D glucan On broad-spectrum empiric coverage including vancomycin, cefepime. Flagyl discontinued as per ID recommendation Continue fluconazole for antifungal coverage as patient has persistent multiorgan failure despite being on multiple antibiotics procalcitonin levels high, 11.0 but in the setting of renal failure has less significance Musculoskeletal: Decubitus ulcer prevention protocol Lines: hemodialysis catheter Prophylaxis: heparin, famotidine Patient is critically ill with multiple organ failures including acute encephalopathy, acute hepatic failure, acute renal failure, acute respiratory failure, septic shock. Critical care time spent is about 50 minutes on managing this critically ill patient mostly on ventilator management, close hemodynamic monitoring, vasopressor support, sedation management and this time is excluding any procedural time. Quality Stroke Does the patient have a stroke diagnosis?: No VTE Prior VTE?: No VTE Risk Level:: Medical - moderate - high VTE Device Contraindication: N/A - Device Ordered VTE Drug Contraindication: Treatment Not Indicated
--- NOTE | 2024-06-29 10:18 | P.PNNP_ITS ---
Subjective Subjective Date of Service: 06/29/24 Interval history: Events noted. Worsening liver function. Remains dialysis dependent. Had liver biopsy 3 days ago. Hypervolemic Physical Exam 2 Vital Signs: Vital Signs: Last Vital Signs Temp 99.4 F 06/29/24 08:00 Pulse 71 06/29/24 09:00 Resp 25 H 06/29/24 09:00 BP 105/52 L 06/29/24 09:00 Pulse Ox 91 L 06/29/24 09:00 O2 Del Method Mechanical Ventil ation 06/29/24 09:00 O2 Flow Rate 15 06/24/24 20:00 FiO2 40 06/29/24 09:00 BMI result Body Mass Index 59.2 Const: General: no acute distress Neck: Other: HD catheter in place Resp: Auscultation: diminished lung sounds Cardio: Rate: regular rate Neuro: Other: Intubated and sedated Objective Data Labs 06/29/24 04:38 06/29/24 04:38 Labs: Laboratory Results - last 24 hr 06/28/24 06/28/24 06/28/24 11:13 11:49 15:03 WBC RBC Hgb Hct MCV MCH MCHC RDW Plt Count MPV Immature Gran % (Auto) Neut % (Auto) Lymph % (Auto) [place] % (Auto) Eos % (Auto) Baso % (Auto) Lymph # (Auto) [place] # (Auto) Eos # (Auto) Baso # (Auto) Abs Immat Gran (auto) Absolute Neuts (auto) Absolute Nucleated RBC Nucleated RBC % (auto) Neutrophils % (Manual) Band Neutrophils % Lymphocytes % (Manual) Atypical Lymphs % (Man) Monocytes % (Manual) Eosinophils % (Manual) Metamyelocytes % Myelocytes % Promyelocytes % Abs Neuts (Manual) Lymphocytes # (Manual) Atyp Lymphs # (Manual) Monocytes # (Manual) Eosinophils # (Manual) Metamyelocytes # Myelocytes # Promyelocytes # Nucleated RBCs Toxic Vacuolation Platelet Estimate Large Platelets Plt Morphology Comment RBC Morphology Polychromasia Hypochromasia Basophilic Stippling Microcytosis Macrocytosis Target Cells Ovalocytes VBG pH VBG pCO2 VBG pO2 VBG HCO3 VBG O2 Saturation VBG Base Excess Sodium 140 Potassium 5.6 H D Chloride 99 Carbon Dioxide 20 L Anion Gap 27 H BUN 34 H Creatinine 3.70 H Estim Creat Clear Calc 24.8 Estimated GFR 12 POC Glucose 48 L* 82 Random Glucose 47 L* Calcium 7.2 L Phosphorus Magnesium 2.0 Total Bilirubin 8.4 H AST 2337 H ALT 392 H Alkaline Phosphatase 135 H Total Protein 5.4 L Albumin 2.2 L Nasal Screen MRSA (PCR) Nasal S. aureus Screen Nasal MRSA/S.aureus Interp Random Vancomycin 06/28/24 06/28/24 06/28/24 16:16 17:42 18:17 WBC RBC Hgb Hct MCV MCH MCHC RDW Plt Count MPV Immature Gran % (Auto) Neut % (Auto) Lymph % (Auto) [place] % (Auto) Eos % (Auto) Baso % (Auto) Lymph # (Auto) [place] # (Auto) Eos # (Auto) Baso # (Auto) Abs Immat Gran (auto) Absolute Neuts (auto) Absolute Nucleated RBC Nucleated RBC % (auto) Neutrophils % (Manual) Band Neutrophils % Lymphocytes % (Manual) Atypical Lymphs % (Man) Monocytes % (Manual) Eosinophils % (Manual) Metamyelocytes % Myelocytes % Promyelocytes % Abs Neuts (Manual) Lymphocytes # (Manual) Atyp Lymphs # (Manual) Monocytes # (Manual) Eosinophils # (Manual) Metamyelocytes # Myelocytes # Promyelocytes # Nucleated RBCs Toxic Vacuolation Platelet Estimate Large Platelets Plt Morphology Comment RBC Morphology Polychromasia Hypochromasia Basophilic Stippling Microcytosis Macrocytosis Target Cells Ovalocytes VBG pH VBG pCO2 VBG pO2 VBG HCO3 VBG O2 Saturation VBG Base Excess Sodium Potassium Chloride Carbon Dioxide Anion Gap BUN Creatinine Estim Creat Clear Calc Estimated GFR POC Glucose 46 L* Random Glucose Calcium Phosphorus Magnesium Total Bilirubin AST ALT Alkaline Phosphatase Total Protein Albumin Nasal Screen MRSA (PCR) NEGATIVE Nasal S. aureus Screen NEGATIVE Nasal MRSA/S.aureus Interp SEE NOTE Random Vancomycin 12.5 L 06/28/24 06/28/24 06/29/24 19:17 23:08 02:12 WBC RBC Hgb Hct MCV MCH MCHC RDW Plt Count MPV Immature Gran % (Auto) Neut % (Auto) Lymph % (Auto) [place] % (Auto) Eos % (Auto) Baso % (Auto) Lymph # (Auto) [place] # (Auto) Eos # (Auto) Baso # (Auto) Abs Immat Gran (auto) Absolute Neuts (auto) Absolute Nucleated RBC Nucleated RBC % (auto) Neutrophils % (Manual) Band Neutrophils % Lymphocytes % (Manual) Atypical Lymphs % (Man) Monocytes % (Manual) Eosinophils % (Manual) Metamyelocytes % Myelocytes % Promyelocytes % Abs Neuts (Manual) Lymphocytes # (Manual) Atyp Lymphs # (Manual) Monocytes # (Manual) Eosinophils # (Manual) Metamyelocytes # Myelocytes # Promyelocytes # Nucleated RBCs Toxic Vacuolation Platelet Estimate Large Platelets Plt Morphology Comment RBC Morphology Polychromasia Hypochromasia Basophilic Stippling Microcytosis Macrocytosis Target Cells Ovalocytes VBG pH VBG pCO2 VBG pO2 VBG HCO3 VBG O2 Saturation VBG Base Excess Sodium Potassium Chloride Carbon Dioxide Anion Gap BUN Creatinine Estim Creat Clear Calc Estimated GFR POC Glucose 83 67 106 Random Glucose Calcium Phosphorus Magnesium Total Bilirubin AST ALT Alkaline Phosphatase Total Protein Albumin Nasal Screen MRSA (PCR) Nasal S. aureus Screen Nasal MRSA/S.aureus Interp Random Vancomycin 06/29/24 06/29/24 06/29/24 04:38 04:42 05:20 WBC 28.7 H RBC 3.70 L Hgb 8.6 L Hct 28.1 L MCV 75.9 L MCH 23.2 L MCHC 30.6 L RDW 28.2 H Plt Count 87 L D MPV Not Reportable Immature Gran % (Auto) Cancelled Neut % (Auto) Cancelled Lymph % (Auto) Cancelled [place] % (Auto) Cancelled Eos % (Auto) Cancelled Baso % (Auto) Cancelled Lymph # (Auto) Cancelled [place] # (Auto) Cancelled Eos # (Auto) Cancelled Baso # (Auto) Cancelled Abs Immat Gran (auto) Cancelled Absolute Neuts (auto) Cancelled Absolute Nucleated RBC 1.110 H Nucleated RBC % (auto) 3.9 H Neutrophils % (Manual) 45 Band Neutrophils % 12 H Lymphocytes % (Manual) 6 L Atypical Lymphs % (Man) 4 Monocytes % (Manual) 17 H Eosinophils % (Manual) 3 Metamyelocytes % 7 Myelocytes % 4 Promyelocytes % 2 Abs Neuts (Manual) 16.4 H Lymphocytes # (Manual) 1.7 Atyp Lymphs # (Manual) 1.1 Monocytes # (Manual) 4.9 H Eosinophils # (Manual) 0.9 H Metamyelocytes # 2.0 Myelocytes # 1.1 Promyelocytes # 0.6 Nucleated RBCs 3 H Toxic Vacuolation PRESENT Platelet Estimate DECREASED Large Platelets PRESENT Plt Morphology Comment NOTED RBC Morphology NOTED Polychromasia 1+ (0-2) Hypochromasia 1+ (5-14) Basophilic Stippling 1+ (0-2) Microcytosis 1+ (5-14) Macrocytosis 1+ (5-14) Target Cells 1+ (5-14) Ovalocytes 1+ (5-14) VBG pH 7.32 VBG pCO2 50 VBG pO2 50 VBG HCO3 26 VBG O2 Saturation 70.0 VBG Base Excess -0.3 Sodium 137 Potassium 4.5 Chloride 94 L Carbon Dioxide 20 L Anion Gap 28 H BUN 40 H Creatinine 4.36 H* Estim Creat Clear Calc 21.1 Estimated GFR 10 POC Glucose 107 Random Glucose 109 Calcium 7.7 L D Phosphorus 6.6 H Magnesium 2.1 Total Bilirubin 10.0 H AST 2300 H ALT 426 H Alkaline Phosphatase 164 H Total Protein 5.9 L Albumin 2.4 L Nasal Screen MRSA (PCR) Nasal S. aureus Screen Nasal MRSA/S.aureus Interp Random Vancomycin Microbiology Microbiology Results: Microbiology 06/23/24 03:59 Blood - Venous Blood Culture - Final No growth after 5 days. 06/26/24 09:18 Trachea Gram Stain - Final 06/26/24 09:18 Trachea Sputum Culture - Final No growth. 06/23/24 05:30 Blood - Venous Blood Culture - Final No growth after 5 days. 06/24/24 19:04 Blood - Venous Blood Culture - Preliminary No growth after 48 hours. 06/24/24 19:04 Blood - Venous Blood Culture - Preliminary No growth after 48 hours. 06/18/24 15:26 Blood - Venous Blood Culture - Final No growth after 5 days. 06/18/24 15:26 Blood - Venous Blood Culture - Final No growth after 5 days. 06/18/24 20:10 Urine clean catch - Clean Catch Midstream Urine Culture - Final Procedures Date of Service Date of Service: 06/29/24 Assessment & Plan Assessment and plan (1) JAYSON (acute kidney injury): Status: Acute Plan JAYSON likely due to ATN ( DDx- direct infiltration of B cells into kidney versus tumor lysis( unlikely) S/P HD catheter ; Hypervolemic- For UF this morning ; Next HD tomorrow Had liver lesions biopsied ; Likely will need renal biopsy as well when stable cortisol level reviewed given hypotension and hyperkalemia; Surgical F/U ECHO reviewed ; C/W rest of current supportive care for now Progress Note: Quality Stroke Does the patient have a stroke diagnosis?: No
[2024-06-29] MEDS: Fluconazole in NaCl,Iso-Osm 100 MG in Container,Empty 0 ML 50 MG IV (10:27)
[2024-06-29 11:56] LABS: Glucose, Whole Blood 107 mg/dL (60-115)
[2024-06-29] MEDS: Phenylephrine HCL 100 MG in 0.9 % Sodium Chloride 250 ML 37.46 MG IVCONT (13:48)
[2024-06-29] MEDS: Heparin Sodium,Porcine 5,000 UNIT/ML VIAL 5000 UNIT INTRACATH (14:06)
--- NOTE | 2024-06-29 14:41 | MHC.CM.PN ---
Pt intubated: liver bx pending - multiple lesions on imaging in the setting of prior colon carcinoma. HD started during this admission. No plans for extubation. Goals of care discussions with family ongoing. CM to follow.
[2024-06-29] MEDS: Phenylephrine HCL 100 MG in 0.9 % Sodium Chloride 250 ML 62.44 MG IVCONT (17:25)
[2024-06-29] MEDS: cefEPime HCl 1 GM in 0.9 % Sodium Chloride 50 ML IV (17:38)
[2024-06-29 17:56] LABS: Glucose, Whole Blood 98 mg/dL (60-115)
--- NOTE | 2024-06-29 18:33 | PC.NURSE ---
Pt placed on sedation vacation at approx 1030. At end of shift, patient does not rouse, open eyes, or move limbs. Pt was placed on special bariatric bed with air mattress at approx 1330. Pt recieved ultrafiltration, removing 5000mL. Pressor needs increased during the session, see mar for details.
[2024-06-29] MEDS: bisacodyL 10 MG SUPP.RECT PR (20:31)
[2024-06-29] MEDS: Phenylephrine HCL 100 MG in 0.9 % Sodium Chloride 250 ML 74.93 MG IVCONT ×2 (20:33→23:29)
[2024-06-29 23:23] LABS: Glucose, Whole Blood 83 mg/dL (60-115)
[2024-06-30] VITALS (49 sets, daily range): BP systolic 75–112; BP diastolic 27–57; PULSE 70–90; RESP 11–37; TEMP 34.7–38.7; O2SAT 90–96; BMI 66.8
[2024-06-30] MEDS: Phenylephrine HCL 100 MG in 0.9 % Sodium Chloride 250 ML 74.93 MG IVCONT ×3 (02:01→08:31)
[2024-06-30] MEDS: Albuterol/Iprat 2.5/0.5MG 3 ML AMPUL.NEB INHALE ×4 (05:02→18:57)
[2024-06-30 05:36] LABS: VBG Base Excess -3.6 mmol/L; VBG HCO3 22 mmol/L (22-26); VBG pCO2 45 mmHg; VBG pO2 59 mmHg
[2024-06-30 05:45] LABS: Venous Blood Gas Refer to POC result
[2024-06-30 05:49] LABS: Hematocrit 28.2 % (37.0-47.0); Hemoglobin 8.9 g/dl (12.0-16.0); Mean Corpuscular HGB Conc 31.6 g/dl (31.0-35.0); Mean Corpuscular Hemoglobin 23.4 pg (27.0-33.0); Mean Corpuscular Volume 74.2 fL (80.0-98.0); NRBC Pct Auto 4.5 /100WBC (0.0-0.2); PLT CLUMP 1; Red Cell Distribution Width 28.2 % (11.0-16.0); WBC ABN SCTR FOR CBC 1
[2024-06-30 05:56] LABS: Ammonia 70 umol/L (13-55)
[2024-06-30 06:05] LABS: Vancomycin Random 11.8 mcg/mL (15-20)
[2024-06-30 06:08] LABS: Alanine Aminotransferase 335 U/L (0-31); Albumin Level 2.3 g/dL (3.5-5.0); Alkaline Phosphatase 203 U/L (39-117); Anion Gap 26 (12-20); Aspartate Amino Transferase 1257 U/L (5-31); Bilirubin Total 10.6 mg/dL (0.0-1.0); Blood Urea Nitrogen 60 mg/dL (9-16); Calcium 7.5 mg/dL (8.4-10.2); Carbon Dioxide 19 mmol/L (22-29); Chloride 94 mmol/L (96-108); Creatinine Clr Calc Pharmacy 20.1; Estimated Glomerular Filt Rate 9; Glucose Random 77 mg/dL (60-115); Magnesium 2.1 mg/dL (1.6-2.6); Phosphorus 7.2 mg/dL (2.7-4.5); Sodium 134 mmol/L (135-145); Total Protein 6.1 g/dL (6.5-8.0)
[2024-06-30] MEDS: Levothyroxine Sodium 100 MCG/5 ML VIAL 300 MCG IVPUSH (06:09)
[2024-06-30 06:12] LABS: Atypical Lymphs Percent Manual 3 % (0-6); Band Neutrophils Percent 4 % (3-5); Basophils Percent Manual 1 % (0-2); Eosinophils Percent Manual 1 % (0-4); Lymphocytes Percent Manual 16 % (20-40); Metamyelocytes Percent 6 %; Monocytes Percent Manual 8 % (2-11); Myelocytes Percent 1 %; Neutrophils Percent Manual 59 % (45-73); Nucleated Red Blood Cells 1 /100WBC (0-0); Platelet Estimate DECREASED (NORMAL); Platelet Morphology Comment NOTED; Promyelocytes Percent 1 %; RBC Morphology NOTED
[2024-06-30 06:13] LABS: Acanthocytes 2+ (3-5) /OIF; Burr Cells 1+ (0-2) /OIF; Large Platelet PRESENT; Ovalocytes 1+ (5-14) /OIF; Schistocytes 1+ (0-2) /OIF; Spherocytes 1+ (0-2) /OIF; Target Cells 2+ (15-30) /OIF; Tear Drop Cells 1+ (0-2) /OIF; Toxic Vacuolation PRESENT
[2024-06-30 06:14] LABS: Toxic Granulation PRESENT
[2024-06-30 06:16] LABS: Basophils Abs Manual 0.3 X10*3/uL (0.0-0.2); Eosinophils Absolute Manual 0.3 X10*3/uL (0.0-0.4); Lymphocytes Absolute Manual 5.1 X10*3/uL (1.2-4.9); Metamyelocytes Absolute 1.9 X10*3/uL; Monocytes Absolute Manual 2.5 X10*3/uL (0.1-1.2); Myelocytes Absolute 0.3 X10*/uL; Platelet Count 63 X10*3/uL (160-400); Promyelocytes Absolute 0.3 X10*3/uL; White Blood Count 31.7 X10*3/uL (4.8-10.8)
[2024-06-30] MEDS: 0.9 % Sodium Chloride Flush 3 ML SYRINGE IVFLUSH (07:57)
[2024-06-30] MEDS: Digoxin 0.5 MG/2 ML AMPUL 0.125 MG IVPUSH (08:01)
[2024-06-30] MEDS: Famotidine/PF 20 MG/2 ML VIAL IVPUSH (08:01)
[2024-06-30] MEDS: Chlorhexidine Gluc Oral Rinse 15 ML MOUTHWASH BUCCAL ×3 (08:02→21:05)
--- NOTE | 2024-06-30 08:52 | P.PNCC_ITS ---
Subjective Subjective Date of Service: 06/30/24 Critical Care Time (minutes): 35 Comment: Continues to be critically ill, poor mental status off Precedex since yesterday. On ventilator support, on low-dose phenylephrine support Plan to receive hemodialysis today Physical Exam 2 Vital Signs: Vital Signs: Last Vital Signs Temp 98.8 F 06/30/24 08:00 Pulse 70 06/30/24 08:31 Resp 32 H 06/30/24 08:00 BP 87/27 L 06/30/24 08:31 Pulse Ox 95 06/30/24 08:00 O2 Del Method Mechanical Ventil ation 06/30/24 08:00 O2 Flow Rate 15 06/24/24 20:00 FiO2 40 06/30/24 08:00 BMI result Body Mass Index 66.8 General: Morbidly obese lady looking critically ill, unresponsive carotid to the ventilator Nutritional Appearance: well nourished and morbidly obese Eyes: appearance normal, both eyes and all related structures; Alignment and Position: alignment normal and position normal Neck: No lymphadenopathy, no thyromegaly Resp: bilateral air entry equal, occasional added sounds present Cardio: Regular rate, regular rhythm; Heart sounds: S1 normal heart sound present and S2 normal heart sound present GI: Palpable bowel loops, no guarding, no rigidity, soft, nontender, no guarding, no hepatosplenomegaly : bladder normal to inspection, bladder normal to palpation, no renal angle tenderness Skin: no rashes or lesions noted and elasticity normal Neuro: Unresponsive, no focal deficits Objective Data Labs 06/30/24 05:28 06/30/24 05:30 Labs: Laboratory Results - last 24 hr 06/29/24 06/29/24 06/29/24 11:52 17:34 23:14 WBC RBC Hgb Hct MCV MCH MCHC RDW Plt Count MPV Immature Gran % (Auto) Neut % (Auto) Lymph % (Auto) [place] % (Auto) Eos % (Auto) Baso % (Auto) Lymph # (Auto) [place] # (Auto) Eos # (Auto) Baso # (Auto) Abs Immat Gran (auto) Absolute Neuts (auto) Absolute Nucleated RBC Nucleated RBC % (auto) Neutrophils % (Manual) Band Neutrophils % Lymphocytes % (Manual) Atypical Lymphs % (Man) Monocytes % (Manual) Eosinophils % (Manual) Basophils % (Manual) Metamyelocytes % Myelocytes % Promyelocytes % Abs Neuts (Manual) Lymphocytes # (Manual) Atyp Lymphs # (Manual) Monocytes # (Manual) Eosinophils # (Manual) Basophils # (Manual) Metamyelocytes # Myelocytes # Promyelocytes # Nucleated RBCs Toxic Granulation Toxic Vacuolation Platelet Estimate Large Platelets Plt Morphology Comment RBC Morphology Spherocytes Target Cells Tear Drop Cells Ovalocytes [place] Cells Acanthocytes (Spur) Schistocytes VBG pH VBG pCO2 VBG pO2 VBG HCO3 VBG O2 Saturation VBG Base Excess Sodium Potassium Chloride Carbon Dioxide Anion Gap BUN Creatinine Estim Creat Clear Calc Estimated GFR POC Glucose 107 98 83 Random Glucose Calcium Phosphorus Magnesium Total Bilirubin AST ALT Alkaline Phosphatase Ammonia Total Protein Albumin Random Vancomycin 06/30/24 06/30/24 06/30/24 05:28 05:30 05:32 WBC 31.7 H* RBC 3.80 L Hgb 8.9 L Hct 28.2 L MCV 74.2 L MCH 23.4 L MCHC 31.6 RDW 28.2 H Plt Count 63 L D MPV Not Reportable Immature Gran % (Auto) Cancelled Neut % (Auto) Cancelled Lymph % (Auto) Cancelled [place] % (Auto) Cancelled Eos % (Auto) Cancelled Baso % (Auto) Cancelled Lymph # (Auto) Cancelled [place] # (Auto) Cancelled Eos # (Auto) Cancelled Baso # (Auto) Cancelled Abs Immat Gran (auto) Cancelled Absolute Neuts (auto) Cancelled Absolute Nucleated RBC 1.410 H Nucleated RBC % (auto) 4.5 H Neutrophils % (Manual) 59 Band Neutrophils % 4 Lymphocytes % (Manual) 16 L Atypical Lymphs % (Man) 3 Monocytes % (Manual) 8 Eosinophils % (Manual) 1 Basophils % (Manual) 1 Metamyelocytes % 6 Myelocytes % 1 Promyelocytes % 1 Abs Neuts (Manual) 20.0 H Lymphocytes # (Manual) 5.1 H Atyp Lymphs # (Manual) 1.0 Monocytes # (Manual) 2.5 H Eosinophils # (Manual) 0.3 Basophils # (Manual) 0.3 H Metamyelocytes # 1.9 Myelocytes # 0.3 Promyelocytes # 0.3 Nucleated RBCs 1 H Toxic Granulation PRESENT Toxic Vacuolation PRESENT Platelet Estimate DECREASED Large Platelets PRESENT Plt Morphology Comment NOTED RBC Morphology NOTED Spherocytes 1+ (0-2) Target Cells 2+ (15-30) Tear Drop Cells 1+ (0-2) Ovalocytes 1+ (5-14) [place] Cells 1+ (0-2) Acanthocytes ([place]) 2+ (3-5) Schistocytes 1+ (0-2) VBG pH 7.30 L VBG pCO2 45 VBG pO2 59 VBG HCO3 22 VBG O2 Saturation 80.0 VBG Base Excess -3.6 Sodium 134 L Potassium 5.0 Chloride 94 L Carbon Dioxide 19 L Anion Gap 26 H BUN 60 H Creatinine 4.96 H* Estim Creat Clear Calc 20.1 Estimated GFR 9 POC Glucose Random Glucose 77 Calcium 7.5 L Phosphorus 7.2 H Magnesium 2.1 Total Bilirubin 10.6 H AST 1257 H ALT 335 H Alkaline Phosphatase 203 H Ammonia 70 H Total Protein 6.1 L Albumin 2.3 L Random Vancomycin 11.8 L Microbiology Microbiology Results: Microbiology 06/24/24 19:04 Blood - Venous Blood Culture - Final No growth after 5 days. 06/24/24 19:04 Blood - Venous Blood Culture - Final No growth after 5 days. 06/23/24 03:59 Blood - Venous Blood Culture - Final No growth after 5 days. 06/26/24 09:18 Trachea Gram Stain - Final 06/26/24 09:18 Trachea Sputum Culture - Final No growth. 06/23/24 05:30 Blood - Venous Blood Culture - Final No growth after 5 days. 06/18/24 15:26 Blood - Venous Blood Culture - Final No growth after 5 days. 06/18/24 15:26 Blood - Venous Blood Culture - Final No growth after 5 days. 06/18/24 20:10 Urine clean catch - Clean Catch Midstream Urine Culture - Final Progress Note: A&P Assessment and plan (1) HTN (hypertension): Status: Acute (2) Afib: Status: Acute (3) Shock: Status: Acute (4) Acute respiratory failure: Status: Acute (5) Asthma: Status: Acute (6) JAYSON (acute kidney injury): Status: Acute (7) Liver masses: Status: Acute (8) Morbid obesity: Status: Acute Plan Neuro: Acute encephalopathy possibly due to metabolic encephalopathy from significant multiorgan failure Off Precedex since yesterday but continues to have poor mental status, we will get CT scan of the brain Close neurological status monitoring in the ICU every hour Cardiac: Shock: Possibly secondary to severe sepsis Levophed switched to phenylephrine due to atrial fibrillation with RVR Atrial fibrillation with RVR: Currently reverted back to sinus rhythm Amiodarone stopped due to hepatotoxicity, switched to low dose digoxin which we will stop today Heparin for anticoagulation discontinued due to drop in hemoglobin; currently in sinus rhythm if she goes back to AFib we will restart heparin TTE showed normal LV systolic function, hyperdynamic LV, mild pulmonary hypertension Respiratory: Acute hypoxemic respiratory failure due to bilateral pneumonia Currently on ventilator support On PRVC mode FiO2 30, PEEP 6, TV 360, RR 20. Poor candidate for weaning due to significant altered sensorium from multiorgan failure Peak pressures and plateau pressures are under the curve Ventilator management bundle with head end elevation, aspiration precaution, chlorhexidine mouthwash, daily awakening trials, daily spontaneous breathing trials GI: Shock liver: Possibly secondary to congestion versus multiorgan failure from severe sepsis with tumor infiltration. LFTs slightly better, trending down this morning Hepatitis panel negative CT abdomen shows diffuse hepatic metastasis, liver biopsy suggestive of metastatic disease neuroendocrine in origin possibly coming from gut Bowel hernia: Patient has significant ventral hernia containing bowel loops. General surgery involved, opined for conservative management for now given severity of illness CTA abdomen and pelvis showed ventral hernia with no definite evidence of ischemia. Renal: Acute kidney injury possibly secondary to ATN versus tumor infiltration kidney Complement levels and ANCA normal Currently on renal replacement therapy, plan for HD today We will closely monitor I's and O's Avoid nephrotoxic medications Lactic acidosis: secondary to multiorgan failure vs possible metastatic malignancy with poor clearance secondary to hepatic failure. on bicarb drip to correct acidosis, stopped this morning due to concerns for volume overload. Heme: Chronic anemia, closely monitor H&H, transfuse for hemoglobin less than 7 grams/deciliter, receiving 2 units of PRBC this morning for drop in Hb. LDH upto 4090, pending hemolysis labs Leukocytosis: Secondary to hematological malignancy versus infection Endocrine: Blood sugars under control Sliding scale insulin as needed hypoglycemia: secondary to sepsis continue D10 drip. Hypothyroidism: Continue levothyroxine Infectious disease: Pancultures negative so far, pending beta D glucan On broad-spectrum empiric coverage including vancomycin, cefepime. Flagyl discontinued as per ID recommendation Continue fluconazole for antifungal coverage as patient has persistent multiorgan failure despite being on multiple antibiotics procalcitonin levels high, 11.0 but in the setting of renal failure has less significance Musculoskeletal: Decubitus ulcer prevention protocol Lines: hemodialysis catheter Prophylaxis: heparin, famotidine Quality Stroke Does the patient have a stroke diagnosis?: No VTE Prior VTE?: No VTE Risk Level:: Medical - moderate - high VTE Device Contraindication: N/A - Device Ordered VTE Drug Contraindication: Treatment Not Indicated
[2024-06-30] MEDS: Phenylephrine HCL 100 MG in 0.9 % Sodium Chloride 250 ML 112.39 MG IVCONT (11:20)
[2024-06-30 12:08] LABS: Glucose, Whole Blood 67 mg/dL (60-115)
--- NOTE | 2024-06-30 12:58 | MHC.CLN ---
F/U PT REMAINS INTUBATED AND SEDATED-NOTED PROPOFOL REMAINS OFF. RECEIVING TF NEPRO AT 30ML/HR PROVIDES 1296KCALS (23KCALS/KG BASED ON IBW), 58G PROTEIN, 523ML FREE WATER FROM FORMULA. RECEIVING HEMODIALYSIS. DISCUSSED AT ROUNDS. DX LIVER CANCER. HAS DTI MID BACK. LABS REVIEWED. CONTINUE CURRENT TUBE FEEDING. MONITOR TOLERANCE AND LYTES.
--- NOTE | 2024-06-30 13:03 | PM.EVENT ---
I spoke to patient's daughter Mary at the request of Dr. Albarran. I discussed with the daughter diagnosis of poorly differentiated neuroendocrine cancer involving liver, unknown primary. She has multisystem organ failure and unfortunately not a candidate for even palliative therapy. Her tumor may be responsible for some of her organ failure, she has elevated LDH, she could be in tumor lysis. The daughter who is patient's healthcare proxy understands that further care is futile at this point. Thank you.
[2024-06-30] MEDS: Vasopressin 20 UNIT/100 ML INFUS..BTL 12 UNIT IVCONT ×2 (13:25→19:00)
[2024-06-30] MEDS: Phenylephrine HCL 100 MG in 0.9 % Sodium Chloride 250 ML 149.85 MG IVCONT ×7 (13:30→23:52)
[2024-06-30] MEDS: Fluconazole in NaCl,Iso-Osm 100 MG in Container,Empty 0 ML 50 MG IV (13:41)
[2024-06-30] MEDS: Heparin Sodium,Porcine 5,000 UNIT/ML VIAL 5000 UNIT INTRACATH (14:00)
[2024-06-30] MEDS: Albumin Human 25 % 50 ML 100 ML IV ×2 (14:07→15:11)
[2024-06-30] MEDS: Dextrose 10 % 1,000 ML 100 ML IVCONT (15:30)
[2024-06-30] MEDS: Dextrose 10 % 1,000 ML 50 ML IVCONT (15:33)
[2024-06-30 15:34] LABS: Glucose, Whole Blood 54 mg/dL (60-115)
--- NOTE | 2024-06-30 15:46 | MHC.CM.PN ---
EMR REVIEWED AND PER MD ROUNDS, GOC DISCUSSED WITH FAMILY. CM WILL CONTINUE TO FOLLOW.
--- NOTE | 2024-06-30 15:54 | P.PNNP_ITS ---
Subjective Subjective Date of Service: 06/30/24 Interval history: Events noted. Worsening liver function. Remains dialysis dependent. Had liver biopsy 4 days ago- metastatic disease Physical Exam 2 Vital Signs: Vital Signs: Last Vital Signs Temp 100.8 F H 06/30/24 15:00 Pulse 83 06/30/24 15:36 Resp 19 06/30/24 15:36 BP 92/41 L 06/30/24 15:19 Pulse Ox 94 06/30/24 15:00 O2 Del Method Mechanical Ventil ation 06/30/24 15:00 O2 Flow Rate 15 06/24/24 20:00 FiO2 40 06/30/24 15:36 BMI result Body Mass Index 66.8 Const: General: no acute distress Neck: Other: HD catheter + Resp: Auscultation: diminished lung sounds Cardio: Rate: regular rate GI: Palpation (GI): Soft to palpation Neuro: Other: Intubated and sedated Objective Data Labs 06/30/24 05:28 06/30/24 05:30 Labs: Laboratory Results - last 24 hr 06/29/24 06/29/24 06/30/24 17:34 23:14 05:28 WBC 31.7 H* RBC 3.80 L Hgb 8.9 L Hct 28.2 L MCV 74.2 L MCH 23.4 L MCHC 31.6 RDW 28.2 H Plt Count 63 L D MPV Not Reportable Immature Gran % (Auto) Cancelled Neut % (Auto) Cancelled Lymph % (Auto) Cancelled Murray % (Auto) Cancelled Eos % (Auto) Cancelled Baso % (Auto) Cancelled Lymph # (Auto) Cancelled Murray # (Auto) Cancelled Eos # (Auto) Cancelled Baso # (Auto) Cancelled Abs Immat Gran (auto) Cancelled Absolute Neuts (auto) Cancelled Absolute Nucleated RBC 1.410 H Nucleated RBC % (auto) 4.5 H Neutrophils % (Manual) 59 Band Neutrophils % 4 Lymphocytes % (Manual) 16 L Atypical Lymphs % (Man) 3 Monocytes % (Manual) 8 Eosinophils % (Manual) 1 Basophils % (Manual) 1 Metamyelocytes % 6 Myelocytes % 1 Promyelocytes % 1 Abs Neuts (Manual) 20.0 H Lymphocytes # (Manual) 5.1 H Atyp Lymphs # (Manual) 1.0 Monocytes # (Manual) 2.5 H Eosinophils # (Manual) 0.3 Basophils # (Manual) 0.3 H Metamyelocytes # 1.9 Myelocytes # 0.3 Promyelocytes # 0.3 Nucleated RBCs 1 H Toxic Granulation PRESENT Toxic Vacuolation PRESENT Platelet Estimate DECREASED Large Platelets PRESENT Plt Morphology Comment NOTED RBC Morphology NOTED Spherocytes 1+ (0-2) Target Cells 2+ (15-30) Tear Drop Cells 1+ (0-2) Ovalocytes 1+ (5-14) [place] Cells 1+ (0-2) Acanthocytes (Spur) 2+ (3-5) Schistocytes 1+ (0-2) VBG pH VBG pCO2 VBG pO2 VBG HCO3 VBG O2 Saturation VBG Base Excess Sodium Potassium Chloride Carbon Dioxide Anion Gap BUN Creatinine Estim Creat Clear Calc Estimated GFR POC Glucose 98 83 Random Glucose Calcium Phosphorus Magnesium Total Bilirubin AST ALT Alkaline Phosphatase Ammonia 70 H Total Protein Albumin Random Vancomycin 06/30/24 06/30/24 06/30/24 05:30 05:32 11:35 WBC RBC Hgb Hct MCV MCH MCHC RDW Plt Count MPV Immature Gran % (Auto) Neut % (Auto) Lymph % (Auto) Murray % (Auto) Eos % (Auto) Baso % (Auto) Lymph # (Auto) Murray # (Auto) Eos # (Auto) Baso # (Auto) Abs Immat Gran (auto) Absolute Neuts (auto) Absolute Nucleated RBC Nucleated RBC % (auto) Neutrophils % (Manual) Band Neutrophils % Lymphocytes % (Manual) Atypical Lymphs % (Man) Monocytes % (Manual) Eosinophils % (Manual) Basophils % (Manual) Metamyelocytes % Myelocytes % Promyelocytes % Abs Neuts (Manual) Lymphocytes # (Manual) Atyp Lymphs # (Manual) Monocytes # (Manual) Eosinophils # (Manual) Basophils # (Manual) Metamyelocytes # Myelocytes # Promyelocytes # Nucleated RBCs Toxic Granulation Toxic Vacuolation Platelet Estimate Large Platelets Plt Morphology Comment RBC Morphology Spherocytes Target Cells Tear Drop Cells Ovalocytes Lauren Cells Acanthocytes (Spur) Schistocytes VBG pH 7.30 L VBG pCO2 45 VBG pO2 59 VBG HCO3 22 VBG O2 Saturation 80.0 VBG Base Excess -3.6 Sodium 134 L Potassium 5.0 Chloride 94 L Carbon Dioxide 19 L Anion Gap 26 H BUN 60 H Creatinine 4.96 H* Estim Creat Clear Calc 20.1 Estimated GFR 9 POC Glucose 67 Random Glucose 77 Calcium 7.5 L Phosphorus 7.2 H Magnesium 2.1 Total Bilirubin 10.6 H AST 1257 H ALT 335 H Alkaline Phosphatase 203 H Ammonia Total Protein 6.1 L Albumin 2.3 L Random Vancomycin 11.8 L 06/30/24 15:30 WBC RBC Hgb Hct MCV MCH MCHC RDW Plt Count MPV Immature Gran % (Auto) Neut % (Auto) Lymph % (Auto) Murray % (Auto) Eos % (Auto) Baso % (Auto) Lymph # (Auto) [place] # (Auto) Eos # (Auto) Baso # (Auto) Abs Immat Gran (auto) Absolute Neuts (auto) Absolute Nucleated RBC Nucleated RBC % (auto) Neutrophils % (Manual) Band Neutrophils % Lymphocytes % (Manual) Atypical Lymphs % (Man) Monocytes % (Manual) Eosinophils % (Manual) Basophils % (Manual) Metamyelocytes % Myelocytes % Promyelocytes % Abs Neuts (Manual) Lymphocytes # (Manual) Atyp Lymphs # (Manual) Monocytes # (Manual) Eosinophils # (Manual) Basophils # (Manual) Metamyelocytes # Myelocytes # Promyelocytes # Nucleated RBCs Toxic Granulation Toxic Vacuolation Platelet Estimate Large Platelets Plt Morphology Comment RBC Morphology Spherocytes Target Cells Tear Drop Cells Ovalocytes [place] Cells Acanthocytes (Spur) Schistocytes VBG pH VBG pCO2 VBG pO2 VBG HCO3 VBG O2 Saturation VBG Base Excess Sodium Potassium Chloride Carbon Dioxide Anion Gap BUN Creatinine Estim Creat Clear Calc Estimated GFR POC Glucose 54 L* Random Glucose Calcium Phosphorus Magnesium Total Bilirubin AST ALT Alkaline Phosphatase Ammonia Total Protein Albumin Random Vancomycin Microbiology Microbiology Results: Microbiology 06/24/24 19:04 Blood - Venous Blood Culture - Final No growth after 5 days. 06/24/24 19:04 Blood - Venous Blood Culture - Final No growth after 5 days. 06/23/24 03:59 Blood - Venous Blood Culture - Final No growth after 5 days. 06/26/24 09:18 Trachea Gram Stain - Final 06/26/24 09:18 Trachea Sputum Culture - Final No growth. 06/23/24 05:30 Blood - Venous Blood Culture - Final No growth after 5 days. 06/18/24 15:26 Blood - Venous Blood Culture - Final No growth after 5 days. 06/18/24 15:26 Blood - Venous Blood Culture - Final No growth after 5 days. 06/18/24 20:10 Urine clean catch - Clean Catch Midstream Urine Culture - Final Procedures Date of Service Date of Service: 06/30/24 Assessment & Plan Assessment and plan (1) JAYSON (acute kidney injury): Status: Acute Plan JAYSON likely due to ATN Had been HD dependent; Had HD this morning Had liver lesions biopsied- metastatic disease Prognosis poor; Needs consideration for palliative care/[employer] C/W rest of current supportive care for now Progress Note: Quality Stroke Does the patient have a stroke diagnosis?: No
[2024-06-30 18:26] LABS: Vancomycin Random 9.4 mcg/mL (15-20)
--- NOTE | 2024-06-30 18:53 | HE.PHANOTE ---
VANCO DOSE ADJUSTMENT BASED ON SCR AND TROUGH OF 9.4 500MG ONCE GIVEN. NEXT LEVEL 07/03 @ 1800
[2024-06-30] MEDS: vancomycin HCL 500 MG in 0.9 % Sodium Chloride 100 ML 110 MG IV (19:03)
[2024-06-30] MEDS: cefEPime HCl 1 GM in 0.9 % Sodium Chloride 50 ML IV (19:06)
--- NOTE | 2024-06-30 19:51 | PC.NURSE ---
Sedation vacation since 06/29, does not open eyes, does not follow commands, Flaccid extremities, (passive ROM performed) 4 Assist repositioning? ?Intubated/vented, ACVC+ vent support Sinus Rhythm, on Phenyleprine x4 gtt and Vasopresin gtt -see MAR , MAP goal >65, Anuric, Hemodialysis today removed 2500ml.? ?LBM 06/22, soft abdomen, positive bowel sounds, OGT in place, Tolerating tube Feeds with no issues. Hypoglycemia x2, Dr. Albarran made aware, D10W increased to 100ml/hr, poc improved to 75.? ?Scattered bruising, redness to perineal, and under breast, open skin to gluteal crest, (triad, Interdry/), DTI to Mid back (foam DGS applied) (repositioning maintained).? Temp up to 101.5 placed on cooling blanket ?RIJ? Mariaelena catheter - peripheral IVs in place.
--- NOTE | 2024-06-30 19:54 | HO.SKINPHOTO ---
Location: Mid Back
[2024-06-30] MEDS: Artificial Tears Ophth Oint 3.5 GM TUBE 1 APPL EYE-BOTH (22:04)
[2024-06-30] MEDS: bisacodyL 10 MG SUPP.RECT PR (22:36)
[2024-06-30 23:49] LABS: Glucose, Whole Blood 70 mg/dL (60-115)
[2024-06-30 23:50] LABS: Glucose, Whole Blood 75 mg/dL (60-115)
[2024-07-01] VITALS (51 sets, daily range): BP systolic 101–128; BP diastolic 38–73; PULSE 76–95; RESP 15–40; TEMP 34.9–39.2; O2SAT 89–93; BMI 66.6
[2024-07-01 00:28] LABS: Glucose, Whole Blood 99 mg/dL (60-115)
[2024-07-01] MEDS: Dextrose 10 % 1,000 ML 100 ML IVCONT ×3 (01:07→21:28)
[2024-07-01] MEDS: Phenylephrine HCL 100 MG in 0.9 % Sodium Chloride 250 ML 149.85 MG IVCONT ×6 (01:35→10:07)
[2024-07-01] MEDS: Vasopressin 20 UNIT/100 ML INFUS..BTL 12 UNIT IVCONT ×3 (02:51→17:35)
[2024-07-01] MEDS: Albuterol/Iprat 2.5/0.5MG 3 ML AMPUL.NEB INHALE ×3 (04:10→19:51)
[2024-07-01 04:30] LABS: VBG Base Excess -12.4 mmol/L; VBG HCO3 12 mmol/L (22-26); VBG pCO2 23 mmHg; VBG pH 7.31 (7.32-7.43); VBG pO2 57 mmHg
[2024-07-01 04:33] LABS: Venous Blood Gas Refer to POC result
[2024-07-01 04:49] LABS: Hemoglobin 8.4 g/dl (12.0-16.0); PLT CLUMP 1
[2024-07-01 04:51] LABS: Hematocrit 26.6 % (37.0-47.0); Mean Corpuscular HGB Conc 31.6 g/dl (31.0-35.0); Mean Corpuscular Hemoglobin 23.9 pg (27.0-33.0); Mean Corpuscular Volume 75.6 fL (80.0-98.0); Red Blood Count 3.52 X10*6/uL (4.20-5.50); Red Cell Distribution Width 29.3 % (11.0-16.0)
[2024-07-01 04:57] LABS: NRBC Pct Auto 7.9 /100WBC (0.0-0.2); PLT ABN DIST 1; Platelet Count 58 X10*3/uL (160-400); WBC ABN SCTR FOR CBC 1; White Blood Count 29.4 X10*3/uL (4.8-10.8)
[2024-07-01] MEDS: Levothyroxine Sodium 100 MCG/5 ML VIAL 300 MCG IVPUSH (05:06)
[2024-07-01 05:12] LABS: Alanine Aminotransferase 295 U/L (0-31); Albumin Level 2.2 g/dL (3.5-5.0); Alkaline Phosphatase 140 U/L (39-117); Anion Gap 29 (12-20); Aspartate Amino Transferase 1319 U/L (5-31); Blood Urea Nitrogen 52 mg/dL (9-16); Calcium 7.6 mg/dL (8.4-10.2); Carbon Dioxide 13 mmol/L (22-29); Chloride 96 mmol/L (96-108); Creatinine Clr Calc Pharmacy 24.7; Estimated Glomerular Filt Rate 11; Glucose Random 149 mg/dL (60-115); Magnesium 1.9 mg/dL (1.6-2.6); Phosphorus 6.2 mg/dL (2.7-4.5); Potassium 4.7 mmol/L (3.3-5.1); Sodium 133 mmol/L (135-145); Total Protein 5.9 g/dL (6.5-8.0)
[2024-07-01 05:31] LABS: Band Neutrophils Percent 6 % (3-5); Basophils Abs Manual 0.6 X10*3/uL (0.0-0.2); Basophils Percent Manual 2 % (0-2); Lymphocytes Absolute Manual 2.4 X10*3/uL (1.2-4.9); Lymphocytes Percent Manual 8 % (20-40); Metamyelocytes Absolute 1.2 X10*3/uL; Metamyelocytes Percent 4 %; Monocytes Absolute Manual 5.6 X10*3/uL (0.1-1.2); Monocytes Percent Manual 19 % (2-11); Myelocytes Absolute 0.6 X10*/uL; Myelocytes Percent 2 %; Neutrophils Absolute Manual 19.1 X10*3/uL (2.0-8.3); Neutrophils Percent Manual 59 % (45-73); Nucleated Red Blood Cells 9 /100WBC (0-0)
[2024-07-01 05:32] LABS: RBC Morphology NOTED
[2024-07-01 05:33] LABS: Burr Cells 3+ (>5) /OIF; Hypochromasia 1+ (5-14) /OIF; Microcytosis 1+ (5-14) /OIF; Ovalocytes 1+ (5-14) /OIF; Target Cells 1+ (5-14) /OIF; Tear Drop Cells 1+ (0-2) /OIF
[2024-07-01 05:34] LABS: Polychromasia 2+ (3-5) /OIF
[2024-07-01 05:35] LABS: Schistocytes 1+ (0-2) /OIF; Spherocytes 1+ (0-2) /OIF
[2024-07-01 05:38] LABS: Giant Platelet PRESENT; Large Platelet PRESENT; Platelet Estimate DECREASED (NORMAL); Platelet Morphology Comment NOTED; Toxic Vacuolation PRESENT
[2024-07-01] MEDS: Famotidine/PF 20 MG/2 ML VIAL IVPUSH (08:02)
[2024-07-01] MEDS: Chlorhexidine Gluc Oral Rinse 15 ML MOUTHWASH BUCCAL ×3 (08:02→21:28)
[2024-07-01] MEDS: 0.9 % Sodium Chloride Flush 3 ML SYRINGE IVFLUSH ×2 (08:02→17:23)
[2024-07-01] MEDS: Artificial Tears Ophth Oint 3.5 GM TUBE 1 APPL EYE-BOTH ×3 (08:06→22:48)
[2024-07-01] MEDS: Fluconazole in NaCl,Iso-Osm 100 MG in Container,Empty 0 ML 50 MG IV (10:15)
[2024-07-01 11:59] LABS: Glucose, Whole Blood 172 mg/dL (60-115)
[2024-07-01] MEDS: Phenylephrine HCL 100 MG in 0.9 % Sodium Chloride 250 ML 137.37 MG IVCONT ×2 (12:05→13:59)
--- NOTE | 2024-07-01 13:29 | PM.CCPN ---
Subjective Subjective Date of Service: 07/01/24 Critical Care Time (minutes): 35 Comment: Continues to be critically on ventilator support, maximized on 2 vasopressor support Had a detailed goals of discussion with the daughter stating that she should be a MOBILE ARCHITECT, which the daughter agrees but waiting on other family members to make the same decision Physical Exam Vital Signs: Vital Signs: Last Vital Signs Temp 102.2 F H 07/01/24 13:00 Pulse 92 07/01/24 13:00 Resp 35 H 07/01/24 13:00 BP 115/51 L 07/01/24 13:00 Pulse Ox 90 L 07/01/24 13:00 O2 Del Method Mechanical Ventil ation 07/01/24 13:00 O2 Flow Rate 15 06/24/24 20:00 FiO2 40 07/01/24 13:00 BMI result Body Mass Index 66.6 General: Obese lady, ill-appearing, unresponsive in the bed, connected to the ventilator Nutritional Appearance: well nourished and overweight Eyes: appearance normal, both eyes and all related structures; Alignment and Position: alignment normal and position normal Neck: No lymphadenopathy, no thyromegaly Resp: bilateral air entry equal, but bilateral crackles heard, ET tube in place Cardio: Regular rate, regular rhythm; Heart sounds: S1 normal heart sound present and S2 normal heart sound present GI: soft, palpable bowel loops through the hernia, no rigidity, no guarding, no hepatosplenomegaly : bladder normal to inspection, bladder normal to palpation, no renal angle tenderness Skin: no rashes or lesions noted and elasticity normal Neuro: Not on sedation, unresponsive Objective Data Labs 07/01/24 04:15 07/01/24 04:15 Labs: Laboratory Results - last 24 hr 06/30/24 06/30/24 06/30/24 15:30 16:39 17:32 WBC RBC Hgb Hct MCV MCH MCHC RDW Plt Count MPV Immature Gran % (Auto) Neut % (Auto) Lymph % (Auto) [place] % (Auto) Eos % (Auto) Baso % (Auto) Lymph # (Auto) [place] # (Auto) Eos # (Auto) Baso # (Auto) Abs Immat Gran (auto) Absolute Neuts (auto) Absolute Nucleated RBC Nucleated RBC % (auto) Neutrophils % (Manual) Band Neutrophils % Lymphocytes % (Manual) Monocytes % (Manual) Basophils % (Manual) Metamyelocytes % Myelocytes % Abs Neuts (Manual) Lymphocytes # (Manual) Monocytes # (Manual) Basophils # (Manual) Metamyelocytes # Myelocytes # Nucleated RBCs Toxic Vacuolation Platelet Estimate Large Platelets Giant Platelets Plt Morphology Comment RBC Morphology Polychromasia Hypochromasia Microcytosis Spherocytes Target Cells Tear Drop Cells Ovalocytes Lauren Cells Schistocytes VBG pH VBG pCO2 VBG pO2 VBG HCO3 VBG O2 Saturation VBG Base Excess Sodium Potassium Chloride Carbon Dioxide Anion Gap BUN Creatinine Estim Creat Clear Calc Estimated GFR POC Glucose 54 L* 70 75 Random Glucose Calcium Phosphorus Magnesium Total Bilirubin AST ALT Alkaline Phosphatase Total Protein Albumin Random Vancomycin 06/30/24 07/01/24 07/01/24 17:57 00:23 04:15 WBC 29.4 H RBC 3.52 L Hgb 8.4 L Hct 26.6 L MCV 75.6 L MCH 23.9 L MCHC 31.6 RDW 29.3 H Plt Count 58 L MPV Not Reportable Immature Gran % (Auto) Cancelled Neut % (Auto) Cancelled Lymph % (Auto) Cancelled [place] % (Auto) Cancelled Eos % (Auto) Cancelled Baso % (Auto) Cancelled Lymph # (Auto) Cancelled [place] # (Auto) Cancelled Eos # (Auto) Cancelled Baso # (Auto) Cancelled Abs Immat Gran (auto) Cancelled Absolute Neuts (auto) Cancelled Absolute Nucleated RBC 2.330 H Nucleated RBC % (auto) 7.9 H Neutrophils % (Manual) 59 Band Neutrophils % 6 H Lymphocytes % (Manual) 8 L Monocytes % (Manual) 19 H Basophils % (Manual) 2 Metamyelocytes % 4 Myelocytes % 2 Abs Neuts (Manual) 19.1 H Lymphocytes # (Manual) 2.4 Monocytes # (Manual) 5.6 H Basophils # (Manual) 0.6 H Metamyelocytes # 1.2 Myelocytes # 0.6 Nucleated RBCs 9 H Toxic Vacuolation PRESENT Platelet Estimate DECREASED Large Platelets PRESENT Giant Platelets PRESENT Plt Morphology Comment NOTED RBC Morphology NOTED Polychromasia 2+ (3-5) Hypochromasia 1+ (5-14) Microcytosis 1+ (5-14) Spherocytes 1+ (0-2) Target Cells 1+ (5-14) Tear Drop Cells 1+ (0-2) Ovalocytes 1+ (5-14) Lauren Cells 3+ (>5) Schistocytes 1+ (0-2) VBG pH VBG pCO2 VBG pO2 VBG HCO3 VBG O2 Saturation VBG Base Excess Sodium 133 L Potassium 4.7 Chloride 96 Carbon Dioxide 13 L Anion Gap 29 H BUN 52 H Creatinine 4.05 H* Estim Creat Clear Calc 24.7 Estimated GFR 11 POC Glucose 99 Random Glucose 149 H Calcium 7.6 L Phosphorus 6.2 H Magnesium 1.9 Total Bilirubin 11.0 H AST 1319 H ALT 295 H Alkaline Phosphatase 140 H Total Protein 5.9 L Albumin 2.2 L Random Vancomycin 9.4 L 07/01/24 07/01/24 04:25 11:42 WBC RBC Hgb Hct MCV MCH MCHC RDW Plt Count MPV Immature Gran % (Auto) Neut % (Auto) Lymph % (Auto) [place] % (Auto) Eos % (Auto) Baso % (Auto) Lymph # (Auto) [place] # (Auto) Eos # (Auto) Baso # (Auto) Abs Immat Gran (auto) Absolute Neuts (auto) Absolute Nucleated RBC Nucleated RBC % (auto) Neutrophils % (Manual) Band Neutrophils % Lymphocytes % (Manual) Monocytes % (Manual) Basophils % (Manual) Metamyelocytes % Myelocytes % Abs Neuts (Manual) Lymphocytes # (Manual) Monocytes # (Manual) Basophils # (Manual) Metamyelocytes # Myelocytes # Nucleated RBCs Toxic Vacuolation Platelet Estimate Large Platelets Giant Platelets Plt Morphology Comment RBC Morphology Polychromasia Hypochromasia Microcytosis Spherocytes Target Cells Tear Drop Cells Ovalocytes [place] Cells Schistocytes VBG pH 7.31 L VBG pCO2 23 VBG pO2 57 VBG HCO3 12 L VBG O2 Saturation Not Reportable VBG Base Excess -12.4 Sodium Potassium Chloride Carbon Dioxide Anion Gap BUN Creatinine Estim Creat Clear Calc Estimated GFR POC Glucose 172 H Random Glucose Calcium Phosphorus Magnesium Total Bilirubin AST ALT Alkaline Phosphatase Total Protein Albumin Random Vancomycin Microbiology Microbiology Results: Microbiology 06/24/24 19:04 Blood - Venous Blood Culture - Final No growth after 5 days. 06/24/24 19:04 Blood - Venous Blood Culture - Final No growth after 5 days. 06/23/24 03:59 Blood - Venous Blood Culture - Final No growth after 5 days. 06/26/24 09:18 Trachea Gram Stain - Final 06/26/24 09:18 Trachea Sputum Culture - Final No growth. 06/23/24 05:30 Blood - Venous Blood Culture - Final No growth after 5 days. 06/18/24 15:26 Blood - Venous Blood Culture - Final No growth after 5 days. 06/18/24 15:26 Blood - Venous Blood Culture - Final No growth after 5 days. 06/18/24 20:10 Urine clean catch - Clean Catch Midstream Urine Culture - Final Progress Note: A&P Assessment and plan (1) HTN (hypertension): Status: Acute (2) Afib: Status: Acute (3) JAYSON (acute kidney injury): Status: Acute (4) Acidosis, lactic: Status: Acute (5) Acute respiratory failure: Status: Acute (6) Asthma: Status: Acute (7) Liver masses: Status: Acute (8) Morbid obesity: Status: Acute Plan 59-year-old lady with underlying history of colon cancer status post right colectomy 5 years prior, abdominal hernia, morbid obesity, diabetes mellitus admitted on 06/18/2024 with right upper quadrant pain and nausea. Her CT abdomen showed liver lesion concerning for malignant etiology and multiple abdominal hernia with concern for incarceration. Patient was empirically treated for UTI. Hospital course significant for deteriorating renal function with anuria, metabolic acidosis, and hypotension patient was started hemodialysis support and requiring pressor support. Patient was transferred to intensive care unit when she was intubated and placed on ventilator support. Patient was evaluated by General surgery and concern was raised patient is not a surgical candidate at this institution. The liver lesions were biopsied which shows metastatic cancer possibly originating from the GI tract. Talk to oncologist who opines that this patient is not a candidate for even palliative chemo given her liver and renal dysfunction. Patient is off Precedex for 2 days now and her mental status is still very poor. Had a detailed goals of care discussion with patient's daughter Mary who agrees with the fact that patient needs to be changed to MOBILE ARCHITECT but waiting at all the family members to make the same decisions. Neuro: Acute encephalopathy possibly due to metabolic encephalopathy from significant multiorgan failure Off Precedex since yesterday but continues to have poor mental status, patient is too unstable to go to a CT scan of the brain Close neurological status monitoring in the ICU every hour Cardiac: Shock: Possibly secondary to severe sepsis Levophed switched to phenylephrine due to atrial fibrillation with RVR Currently on maximum dose of phenylephrine and vasopressin. Atrial fibrillation with RVR: Currently reverted back to sinus rhythm Amiodarone stopped due to hepatotoxicity, Heparin for anticoagulation discontinued due to drop in hemoglobin; currently in sinus rhythm if she goes back to AFib we will restart heparin TTE showed normal LV systolic function, hyperdynamic LV, mild pulmonary hypertension Respiratory: Acute hypoxemic respiratory failure due to bilateral pneumonia Currently on ventilator support On PRVC mode FiO2 30, PEEP 6, TV 360, RR 20. Poor candidate for weaning due to significant altered sensorium from multiorgan failure Peak pressures and plateau pressures are under the curve Ventilator management bundle with head end elevation, aspiration precaution, chlorhexidine mouthwash, daily awakening trials, daily spontaneous breathing trials GI: Shock liver: Possibly secondary to congestion versus multiorgan failure from severe sepsis with tumor infiltration. LFTs slightly better, trending down this morning. 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 General surgery involved, opined for conservative management for now given severity of illness CTA abdomen and pelvis showed ventral hernia with no definite evidence of ischemia. Renal: Acute kidney injury possibly secondary to ATN versus tumor infiltration kidney Complement levels and ANCA normal Currently on renal replacement therapy, no plan for HD today We will closely monitor I's and O's Avoid nephrotoxic medications Lactic acidosis: secondary to multiorgan failure vs possible metastatic malignancy with poor clearance secondary to hepatic failure. on bicarb drip to correct acidosis, stopped this morning due to concerns for volume overload. Heme: Chronic anemia, closely monitor H&H, transfuse for hemoglobin less than 7 grams/deciliter, receiving 2 units of PRBC this morning for drop in Hb. LDH upto 4090, possibly tumor lysis Leukocytosis: Secondary to hematological malignancy versus infection Endocrine: Blood sugars under control Sliding scale insulin as needed hypoglycemia: secondary to sepsis continue D10 drip. Hypothyroidism: Continue levothyroxine Infectious disease: Pancultures negative so far, pending beta D glucan On broad-spectrum empiric coverage including vancomycin, cefepime. Flagyl discontinued as per ID recommendation Continue fluconazole for antifungal coverage as patient has persistent multiorgan failure despite being on multiple antibiotics procalcitonin levels high, 11.0 but in the setting of renal failure has less significance Musculoskeletal: Decubitus ulcer prevention protocol Lines: hemodialysis catheter Prophylaxis: heparin, famotidine Patient has multiple organ failures including acute encephalopathy, acute hypoxemic respiratory failure, acute kidney injury on renal placement therapy, septic shock on maximized to vasopressor support. Critical care time spent is on ventilator management, sedation management, close hemodynamic monitoring, vasopressor management, review of labs and images at this time is excluding any procedural time Quality Stroke Does the patient have a stroke diagnosis?: No VTE Prior VTE?: No VTE Risk Level:: Medical - moderate - high VTE Device Contraindication: N/A - Device Ordered VTE Drug Contraindication: Treatment Not Indicated
[2024-07-01] MEDS: Insulin Lispro 100 UNIT/ML 3 ML VIAL SUBCUT (14:09)
[2024-07-01] MEDS: Phenylephrine HCL 100 MG in 0.9 % Sodium Chloride 250 ML 124.88 MG IVCONT ×4 (16:31→22:43)
[2024-07-01] MEDS: cefEPime HCl 1 GM in 0.9 % Sodium Chloride 50 ML IV (17:27)
[2024-07-01 17:29] LABS: Glucose, Whole Blood 173 mg/dL (60-115)
[2024-07-01] MEDS: bisacodyL 10 MG SUPP.RECT PR (22:31)
[2024-07-02] VITALS (53 sets, daily range): BP systolic 95–148; BP diastolic 40–69; PULSE 76–91; RESP 25–42; TEMP 34.9–38.4; O2SAT 91–95
[2024-07-02 00:14] LABS: Glucose, Whole Blood 185 mg/dL (60-115)
[2024-07-02] MEDS: Insulin Lispro 100 UNIT/ML 3 ML VIAL SUBCUT ×2 (00:17→05:36)
[2024-07-02] MEDS: Phenylephrine HCL 100 MG in 0.9 % Sodium Chloride 250 ML 124.88 MG IVCONT ×4 (00:41→06:42)
[2024-07-02] MEDS: Vasopressin 20 UNIT/100 ML INFUS..BTL 12 UNIT IVCONT ×3 (01:22→17:16)
[2024-07-02 04:26] LABS: VBG Base Excess -3.9 mmol/L; VBG HCO3 20 mmol/L (22-26); VBG pCO2 33 mmHg; VBG pH 7.38 (7.32-7.43); VBG pO2 58 mmHg
[2024-07-02 04:38] LABS: Venous Blood Gas Refer to POC result
--- NOTE | 2024-07-02 04:44 | PC.NURSE ---
assumed care 1900. pt remains intubated see vent assessment off sedation, medicated per jul, see shift assessment, cooling blanket in use for increased core temps, see vital signs, BM this shift, [place] Care provided, tube feed continued. bed locked in lowest position.
[2024-07-02 04:58] LABS: Hematocrit 25.7 % (37.0-47.0); Hemoglobin 8.3 g/dl (12.0-16.0); Mean Corpuscular HGB Conc 32.3 g/dl (31.0-35.0); Mean Corpuscular Hemoglobin 23.8 pg (27.0-33.0); Mean Corpuscular Volume 73.6 fL (80.0-98.0); NRBC Pct Auto 4.7 /100WBC (0.0-0.2); Red Blood Count 3.49 X10*6/uL (4.20-5.50); Red Cell Distribution Width 29.2 % (11.0-16.0); WBC ABN SCTR FOR CBC 1
[2024-07-02] MEDS: Albuterol/Iprat 2.5/0.5MG 3 ML AMPUL.NEB INHALE ×4 (05:00→19:37)
[2024-07-02 05:01] LABS: White Blood Count 28.8 X10*3/uL (4.8-10.8)
[2024-07-02 05:10] LABS: Alanine Aminotransferase 234 U/L (0-31); Albumin Level 2.1 g/dL (3.5-5.0); Alkaline Phosphatase 146 U/L (39-117); Anion Gap 24 (12-20); Aspartate Amino Transferase 853 U/L (5-31); Bilirubin Total 12.7 mg/dL (0.0-1.0); Blood Urea Nitrogen 66 mg/dL (9-16); Calcium 7.1 mg/dL (8.4-10.2); Carbon Dioxide 15 mmol/L (22-29); Chloride 95 mmol/L (96-108); Estimated Glomerular Filt Rate 10; Glucose Random 165 mg/dL (60-115); Potassium 4.5 mmol/L (3.3-5.1); Sodium 129 mmol/L (135-145)
[2024-07-02 05:17] LABS: Platelet Count 2 X10*3/uL (160-400)
[2024-07-02 05:20] LABS: Band Neutrophils Percent 11 % (3-5); Basophils Abs Manual 0.3 X10*3/uL (0.0-0.2); Basophils Percent Manual 1 % (0-2); Lymphocytes Absolute Manual 3.5 X10*3/uL (1.2-4.9); Lymphocytes Percent Manual 12 % (20-40); Metamyelocytes Absolute 0.9 X10*3/uL; Metamyelocytes Percent 3 %; Monocytes Absolute Manual 4.6 X10*3/uL (0.1-1.2); Monocytes Percent Manual 16 % (2-11); Myelocytes Absolute 0.6 X10*/uL; Myelocytes Percent 2 %; Neutrophils Absolute Manual 18.7 X10*3/uL (2.0-8.3); Neutrophils Percent Manual 54 % (45-73); Nucleated Red Blood Cells 5 /100WBC (0-0); Promyelocytes Absolute 0.3 X10*3/uL; Promyelocytes Percent 1 %
[2024-07-02 05:21] LABS: Hypochromasia 1+ (5-14) /OIF; Microcytosis 2+ (15-30) /OIF; Platelet Estimate DECREASED (NORMAL); Platelet Morphology Comment NORMAL; Polychromasia 2+ (3-5) /OIF; RBC Morphology NOTED; Schistocytes 1+ (0-2) /OIF; Spherocytes 2+ (3-5) /OIF; Target Cells 2+ (15-30) /OIF; Toxic Vacuolation PRESENT
[2024-07-02] MEDS: Levothyroxine Sodium 100 MCG/5 ML VIAL 300 MCG IVPUSH (05:35)
[2024-07-02] MEDS: Dextrose 10 % 1,000 ML 100 ML IVCONT ×2 (06:09→16:44)
[2024-07-02 07:31] LABS: Hematocrit 25.8 % (37.0-47.0); Hemoglobin 8.4 g/dl (12.0-16.0); Mean Corpuscular HGB Conc 32.6 g/dl (31.0-35.0); Mean Corpuscular Hemoglobin 23.7 pg (27.0-33.0); Mean Corpuscular Volume 72.7 fL (80.0-98.0); PLT CLUMP 1; Red Blood Count 3.55 X10*6/uL (4.20-5.50); Red Cell Distribution Width 30.2 % (11.0-16.0)
[2024-07-02 07:32] LABS: NRBC Pct Auto 4.5 /100WBC (0.0-0.2); Platelet Count 69 X10*3/uL (160-400); WBC ABN SCTR FOR CBC 1; White Blood Count 29.2 X10*3/uL (4.8-10.8)
[2024-07-02] MEDS: 0.9 % Sodium Chloride Flush 3 ML SYRINGE IVFLUSH ×3 (08:05→23:42)
[2024-07-02] MEDS: Chlorhexidine Gluc Oral Rinse 15 ML MOUTHWASH BUCCAL ×3 (08:06→20:29)
[2024-07-02] MEDS: Famotidine/PF 20 MG/2 ML VIAL IVPUSH (08:06)
[2024-07-02] MEDS: Phenylephrine HCL 100 MG in 0.9 % Sodium Chloride 250 ML 112.39 MG IVCONT (08:47)
[2024-07-02] MEDS: Fluconazole in NaCl,Iso-Osm 100 MG in Container,Empty 0 ML 50 MG IV (10:45)
[2024-07-02] MEDS: Phenylephrine HCL 100 MG in 0.9 % Sodium Chloride 250 ML 74.93 MG IVCONT (11:06)
[2024-07-02 11:33] LABS: Glucose, Whole Blood 140 mg/dL (60-115)
--- NOTE | 2024-07-02 14:16 | P.PNCC_ITS ---
Subjective Subjective Date of Service: 07/02/24 Critical Care Time (minutes): 35 Comment: Continues to be critically ill on ventilator support On phenylephrine and vasopressin for vasopressor support Slightly improving LFTs but worsening bilirubin Physical Exam 2 Vital Signs: Vital Signs: Last Vital Signs Temp 98.9 F 07/02/24 13:00 Pulse 78 07/02/24 13:00 Resp 34 H 07/02/24 13:00 BP 127/56 L 07/02/24 13:00 Pulse Ox 94 07/02/24 13:00 O2 Del Method Mechanical Ventil ation 07/02/24 13:00 O2 Flow Rate 15 06/24/24 20:00 FiO2 40 07/02/24 13:00 BMI result Body Mass Index 66.6 General: Morbidly obese lady, in acute distress , unresponsive on ventilator support Nutritional Appearance: well nourished and overweight Eyes: appearance normal, both eyes and all related structures; Alignment and Position: alignment normal and position normal Neck: No lymphadenopathy, no thyromegaly Resp: bilateral air entry equal, occasional added sounds present Cardio: Regular rate, regular rhythm; Heart sounds: S1 normal heart sound present and S2 normal heart sound present GI: soft, nontender, palpable bowel loops, no guarding no guarding, no hepatosplenomegaly : bladder normal to inspection, bladder normal to palpation, no renal angle tenderness Skin: no rashes or lesions noted and elasticity normal Neuro: Unresponsive, no focal deficits Objective Data Labs 07/02/24 05:31 07/02/24 04:09 Labs: Laboratory Results - last 24 hr 07/01/24 07/01/24 07/02/24 17:21 23:57 04:09 WBC 28.8 H RBC 3.49 L Hgb 8.3 L Hct 25.7 L MCV 73.6 L MCH 23.8 L MCHC 32.3 RDW 29.2 H Plt Count 2 L* D MPV Not Reportable Immature Gran % (Auto) Cancelled Neut % (Auto) Cancelled Lymph % (Auto) Cancelled [place] % (Auto) Cancelled Eos % (Auto) Cancelled Baso % (Auto) Cancelled Lymph # (Auto) Cancelled [place] # (Auto) Cancelled Eos # (Auto) Cancelled Baso # (Auto) Cancelled Abs Immat Gran (auto) Cancelled Absolute Neuts (auto) Cancelled Absolute Nucleated RBC 1.340 H Nucleated RBC % (auto) 4.7 H Neutrophils % (Manual) 54 Band Neutrophils % 11 H Lymphocytes % (Manual) 12 L Monocytes % (Manual) 16 H Basophils % (Manual) 1 Metamyelocytes % 3 Myelocytes % 2 Promyelocytes % 1 Abs Neuts (Manual) 18.7 H Lymphocytes # (Manual) 3.5 Monocytes # (Manual) 4.6 H Basophils # (Manual) 0.3 H Metamyelocytes # 0.9 Myelocytes # 0.6 Promyelocytes # 0.3 Nucleated RBCs 5 H Toxic Vacuolation PRESENT Platelet Estimate DECREASED Plt Morphology Comment NORMAL RBC Morphology NOTED Polychromasia 2+ (3-5) Hypochromasia 1+ (5-14) Microcytosis 2+ (15-30) Spherocytes 2+ (3-5) Target Cells 2+ (15-30) Schistocytes 1+ (0-2) VBG pH VBG pCO2 VBG pO2 VBG HCO3 VBG O2 Saturation VBG Base Excess Sodium 129 L Potassium 4.5 Chloride 95 L Carbon Dioxide 15 L Anion Gap 24 H BUN 66 H Creatinine 4.31 H* Estim Creat Clear Calc 23.0 Estimated GFR 10 POC Glucose 173 H 185 H Random Glucose 165 H Calcium 7.1 L D Phosphorus 5.0 H Magnesium 2.0 Total Bilirubin 12.7 H AST 853 H ALT 234 H Alkaline Phosphatase 146 H Total Protein 6.0 L Albumin 2.1 L 07/02/24 07/02/24 07/02/24 04:22 05:31 11:18 WBC 29.2 H RBC 3.55 L Hgb 8.4 L Hct 25.8 L MCV 72.7 L MCH 23.7 L MCHC 32.6 RDW 30.2 H Plt Count 69 L D MPV Not Reportable Immature Gran % (Auto) Cancelled Neut % (Auto) Cancelled Lymph % (Auto) Cancelled [place] % (Auto) Cancelled Eos % (Auto) Cancelled Baso % (Auto) Cancelled Lymph # (Auto) Cancelled [place] # (Auto) Cancelled Eos # (Auto) Cancelled Baso # (Auto) Cancelled Abs Immat Gran (auto) Cancelled Absolute Neuts (auto) Cancelled Absolute Nucleated RBC 1.310 H Nucleated RBC % (auto) 4.5 H Neutrophils % (Manual) Band Neutrophils % Lymphocytes % (Manual) Monocytes % (Manual) Basophils % (Manual) Metamyelocytes % Myelocytes % Promyelocytes % Abs Neuts (Manual) Lymphocytes # (Manual) Monocytes # (Manual) Basophils # (Manual) Metamyelocytes # Myelocytes # Promyelocytes # Nucleated RBCs Toxic Vacuolation Platelet Estimate Plt Morphology Comment RBC Morphology Polychromasia Hypochromasia Microcytosis Spherocytes Target Cells Schistocytes VBG pH 7.38 VBG pCO2 33 VBG pO2 58 VBG HCO3 20 L VBG O2 Saturation 83.0 VBG Base Excess -3.9 Sodium Potassium Chloride Carbon Dioxide Anion Gap BUN Creatinine Estim Creat Clear Calc Estimated GFR POC Glucose 140 H Random Glucose Calcium Phosphorus Magnesium Total Bilirubin AST ALT Alkaline Phosphatase Total Protein Albumin Microbiology Microbiology Results: Microbiology 06/24/24 19:04 Blood - Venous Blood Culture - Final No growth after 5 days. 06/24/24 19:04 Blood - Venous Blood Culture - Final No growth after 5 days. 06/23/24 03:59 Blood - Venous Blood Culture - Final No growth after 5 days. 06/26/24 09:18 Trachea Gram Stain - Final 06/26/24 09:18 Trachea Sputum Culture - Final No growth. 06/23/24 05:30 Blood - Venous Blood Culture - Final No growth after 5 days. 06/18/24 15:26 Blood - Venous Blood Culture - Final No growth after 5 days. 06/18/24 15:26 Blood - Venous Blood Culture - Final No growth after 5 days. 06/18/24 20:10 Urine clean catch - Clean Catch Midstream Urine Culture - Final Progress Note: A&P Assessment and plan (1) HTN (hypertension): Status: Acute (2) Afib: Status: Acute (3) Shock: Status: Acute (4) Diabetes: Status: Acute (5) Liver masses: Status: Acute (6) JAYSON (acute kidney injury): Status: Acute (7) UTI (urinary tract infection): Status: Acute Plan 59-year-old lady with underlying history of colon cancer status post right colectomy 5 years prior, abdominal hernia, morbid obesity, diabetes mellitus admitted on 06/18/2024 with right upper quadrant pain and nausea. Her CT abdomen showed liver lesion concerning for malignant etiology and multiple abdominal hernia with concern for incarceration. Patient was empirically treated for UTI. Hospital course significant for deteriorating renal function with anuria, metabolic acidosis, and hypotension patient was started hemodialysis support and requiring pressor support. Patient was transferred to intensive care unit when she was intubated and placed on ventilator support. Patient was evaluated by General surgery and concern was raised patient is not a surgical candidate at this institution. The liver lesions were biopsied which shows metastatic cancer possibly originating from the GI tract. Talk to oncologist who opines that this patient is not a candidate for even palliative chemo given her liver and renal dysfunction. Patient is off Precedex for 2 days now and her mental status is still very poor. Had a detailed goals of care discussion with patient's daughter Mary who agrees with the fact that patient needs to be changed to [employer] but waiting at all the family members to make the same decisions. Neuro: Acute encephalopathy possibly due to metabolic encephalopathy from significant multiorgan failure Off Precedex for 3 days but continues to have poor mental status, patient is too unstable to go to a CT scan of the brain Close neurological status monitoring in the ICU every hour Cardiac: Shock: Possibly secondary to severe sepsis Levophed switched to phenylephrine due to atrial fibrillation with RVR Currently on phenylephrine and vasopressin. Atrial fibrillation with RVR: Currently reverted back to sinus rhythm Amiodarone stopped due to hepatotoxicity, Heparin for anticoagulation discontinued due to drop in hemoglobin; currently in sinus rhythm if she goes back to AFib we will restart heparin TTE showed normal LV systolic function, hyperdynamic LV, mild pulmonary hypertension Respiratory: Acute hypoxemic respiratory failure due to bilateral pneumonia Currently on ventilator support On PRVC mode FiO2 30, PEEP 6, TV 360, RR 20. Poor candidate for weaning due to significant altered sensorium from multiorgan failure Peak pressures and plateau pressures are under the curve Ventilator management bundle with head end elevation, aspiration precaution, chlorhexidine mouthwash, daily awakening trials, daily spontaneous breathing trials GI: Shock liver: Possibly secondary to congestion versus multiorgan failure from severe sepsis with tumor infiltration. LFTs improving. 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 General surgery involved, opined for conservative management for now given severity of illness CTA abdomen and pelvis showed ventral hernia with no definite evidence of ischemia. Renal: Acute kidney injury possibly secondary to ATN versus tumor infiltration kidney Complement levels and ANCA normal Currently on renal replacement therapy, no plan for HD today We will closely monitor I's and O's Avoid nephrotoxic medications Lactic acidosis: secondary to multiorgan failure vs possible metastatic malignancy with poor clearance secondary to hepatic failure. on bicarb drip to correct acidosis, stopped this morning due to concerns for volume overload. Heme: Chronic anemia, closely monitor H&H, transfuse for hemoglobin less than 7 grams/deciliter, receiving 2 units of PRBC this morning for drop in Hb. LDH upto 4090, possibly tumor lysis Leukocytosis: Secondary to hematological malignancy versus infection Endocrine: Blood sugars under control Sliding scale insulin as needed hypoglycemia: secondary to sepsis continue D10 drip. Hypothyroidism: Continue levothyroxine Infectious disease: Pancultures negative so far, pending beta D glucan On broad-spectrum empiric coverage including vancomycin, cefepime. Flagyl discontinued as per ID recommendation Continue fluconazole for antifungal coverage as patient has persistent multiorgan failure despite being on multiple antibiotics procalcitonin levels high, 11.0 but in the setting of renal failure has less significance Musculoskeletal: Decubitus ulcer prevention protocol Lines: hemodialysis catheter Prophylaxis: heparin, famotidine Patient has multiple organ failures including acute encephalopathy, acute hypoxemic respiratory failure, acute kidney injury on renal placement therapy, septic shock on maximized to vasopressor support. Critical care time spent is about 35 mins on ventilator management, sedation management, close hemodynamic monitoring, vasopressor management, review of labs and images at this time is excluding any procedural time Quality Stroke Does the patient have a stroke diagnosis?: No VTE Prior VTE?: No VTE Risk Level:: Medical - moderate - high VTE Device Contraindication: N/A - Device Ordered VTE Drug Contraindication: Treatment Not Indicated
[2024-07-02] MEDS: fentaNYL citrate/PF 100 MCG/2 ML VIAL 50 MCG IVPUSH ×2 (14:22→17:54)
[2024-07-02] MEDS: Phenylephrine HCL 100 MG in 0.9 % Sodium Chloride 250 ML 62.44 MG IVCONT (15:03)
[2024-07-02] MEDS: Artificial Tears Ophth Oint 3.5 GM TUBE 1 APPL EYE-BOTH (16:29)
[2024-07-02 16:34] LABS: Fungitell <31 pg/mL (<60); Fungitell 1,3 beta glucan Negative
[2024-07-02] MEDS: cefEPime HCl 1 GM in 0.9 % Sodium Chloride 50 ML IV (17:26)
[2024-07-02 17:33] LABS: Glucose, Whole Blood 137 mg/dL (60-115)
[2024-07-02 20:33] LABS: Glucose, Whole Blood 136 mg/dL (60-115)
[2024-07-02] MEDS: Phenylephrine HCL 100 MG in 0.9 % Sodium Chloride 250 ML 37.46 MG IVCONT (20:53)
[2024-07-02 23:26] LABS: Glucose, Whole Blood 107 mg/dL (60-115)
[2024-07-03] VITALS (59 sets, daily range): BP systolic 87–144; BP diastolic 41–62; PULSE 78–140; RESP 29–40; TEMP 34.4–38.4; O2SAT 90–94
[2024-07-03] MEDS: Vasopressin 20 UNIT/100 ML INFUS..BTL 12 UNIT IVCONT ×4 (01:25→23:25)
[2024-07-03] MEDS: Phenylephrine HCL 100 MG in 0.9 % Sodium Chloride 250 ML 37.46 MG IVCONT (03:33)
[2024-07-03] MEDS: Albuterol/Iprat 2.5/0.5MG 3 ML AMPUL.NEB INHALE ×4 (03:46→19:53)
[2024-07-03 04:22] LABS: VBG HCO3 16 mmol/L (22-26); VBG pCO2 26 mmHg; VBG pH 7.39 (7.32-7.43); VBG pO2 54 mmHg
[2024-07-03 04:23] LABS: Venous Blood Gas Refer to POC result
[2024-07-03 04:39] LABS: Hematocrit 24.3 % (37.0-47.0); Mean Corpuscular HGB Conc 32.9 g/dl (31.0-35.0); Mean Corpuscular Hemoglobin 23.5 pg (27.0-33.0); Mean Corpuscular Volume 71.5 fL (80.0-98.0); NRBC Pct Auto 4.1 /100WBC (0.0-0.2); Red Cell Distribution Width 30.4 % (11.0-16.0); White Blood Count 24.8 X10*3/uL (4.8-10.8)
[2024-07-03 04:40] LABS: Platelet Count 75 X10*3/uL (160-400)
[2024-07-03 04:58] LABS: Alanine Aminotransferase 181 U/L (0-31); Albumin Level 2.1 g/dL (3.5-5.0); Alkaline Phosphatase 172 U/L (39-117); Anion Gap 27 (12-20); Aspartate Amino Transferase 528 U/L (5-31); Bilirubin Total 12.9 mg/dL (0.0-1.0); Blood Urea Nitrogen 86 mg/dL (9-16); Calcium 7.2 mg/dL (8.4-10.2); Carbon Dioxide 14 mmol/L (22-29); Chloride 92 mmol/L (96-108); Estimated Glomerular Filt Rate 9; Glucose Random 78 mg/dL (60-115); Magnesium 1.9 mg/dL (1.6-2.6); Phosphorus 6.4 mg/dL (2.7-4.5); Potassium 5.1 mmol/L (3.3-5.1); Sodium 128 mmol/L (135-145)
[2024-07-03 05:02] LABS: Band Neutrophils Percent 15 % (3-5); Basophils Abs Manual 0.2 X10*3/uL (0.0-0.2); Basophils Percent Manual 1 % (0-2); Lymphocytes Absolute Manual 2.5 X10*3/uL (1.2-4.9); Lymphocytes Percent Manual 10 % (20-40); Metamyelocytes Absolute 1.5 X10*3/uL; Metamyelocytes Percent 6 %; Monocytes Absolute Manual 3.7 X10*3/uL (0.1-1.2); Monocytes Percent Manual 15 % (2-11); Myelocytes Absolute 0.2 X10*/uL; Myelocytes Percent 1 %; Neutrophils Absolute Manual 16.4 X10*3/uL (2.0-8.3); Neutrophils Percent Manual 51 % (45-73); Nucleated Red Blood Cells 14 /100WBC (0-0); Promyelocytes Absolute 0.2 X10*3/uL; Promyelocytes Percent 1 %
[2024-07-03 05:03] LABS: Burr Cells 1+ (0-2) /OIF; Giant Platelet PRESENT; Hypochromasia 1+ (5-14) /OIF; Large Platelet PRESENT; Pappenheimer Bodies PRESENT; Platelet Estimate DECREASED (NORMAL); Platelet Morphology Comment NOTED; Polychromasia 2+ (3-5) /OIF; RBC Morphology NOTED; Schistocytes 1+ (0-2) /OIF; Spherocytes 2+ (3-5) /OIF; Target Cells 2+ (15-30) /OIF; Toxic Vacuolation PRESENT
[2024-07-03] MEDS: Levothyroxine Sodium 100 MCG/5 ML VIAL 300 MCG IVPUSH (05:56)
[2024-07-03] MEDS: 0.9 % Sodium Chloride Flush 3 ML SYRINGE IVFLUSH ×3 (08:37→23:29)
[2024-07-03] MEDS: Chlorhexidine Gluc Oral Rinse 15 ML MOUTHWASH BUCCAL ×3 (08:37→20:38)
[2024-07-03] MEDS: fentaNYL citrate/PF 100 MCG/2 ML VIAL 50 MCG IVPUSH (08:39)
[2024-07-03] MEDS: Phenylephrine HCL 100 MG in 0.9 % Sodium Chloride 250 ML 49.95 MG IVCONT (08:39)
--- NOTE | 2024-07-03 09:02 | P.PNCC_ITS ---
Subjective Subjective Date of Service: 07/03/24 Critical Care Time (minutes): 60 Physical Exam 2 Vital Signs: Vital Signs: Last Vital Signs Temp 101.1 F H 07/03/24 04:00 Pulse 82 07/03/24 08:39 Resp 38 H 07/03/24 08:00 BP 129/55 L 07/03/24 08:39 Pulse Ox 94 07/03/24 08:00 O2 Del Method Mechanical Ventil ation 07/03/24 08:00 O2 Flow Rate 15 06/24/24 20:00 FiO2 40 07/03/24 08:00 BMI result Body Mass Index 66.6 Const: Other: intubated, no appreciable spontaneous movements; no appreciable withdrawal to noxious stimulus; appreciable morbid obesity General: no acute distress Orientation/consciousness: No patient oriented x3 HEENT: Head: Yes normal to inspection, Yes normocephalic and Yes atraumatic Eyes: General: appearance normal, both eyes and all related structures Neck: Neck: Yes normal visual inspection, Yes full ROM, Yes no meningeal signs, Yes trachea midline and Yes supple Chest: Chest palpation & inspection: normal inspection of the chest Resp: Other: no appreciable rales, rhonchi, wheezing Effort & Inspection: normal respiratory effort Cardio: Rate: regular rate Rhythm: regular rhythm GI: Other: appreciable large ventral hernia w/o overt overlying erythema, edema, skin changes Inspection: No distended Palpation (GI): Soft to palpation, not firm, nontender, no guarding and not rigid Skin: General skin exam: no rashes or lesions noted Neuro: General: No patient oriented x3, No moves all extremities and no meningeal signs Extrem: Other: appreciable anasarca General: Yes normal to inspection and Yes capillary refill normal Psych: Other: unable to assess Objective Data Labs 07/03/24 04:12 07/03/24 04:12 Labs: Laboratory Results - last 24 hr 06/27/24 07/02/24 07/02/24 12:43 11:18 17:29 WBC RBC Hgb Hct MCV MCH MCHC RDW Plt Count MPV Immature Gran % (Auto) Neut % (Auto) Lymph % (Auto) [place] % (Auto) Eos % (Auto) Baso % (Auto) Lymph # (Auto) [place] # (Auto) Eos # (Auto) Baso # (Auto) Abs Immat Gran (auto) Absolute Neuts (auto) Absolute Nucleated RBC Nucleated RBC % (auto) Neutrophils % (Manual) Band Neutrophils % Lymphocytes % (Manual) Monocytes % (Manual) Basophils % (Manual) Metamyelocytes % Myelocytes % Promyelocytes % Abs Neuts (Manual) Lymphocytes # (Manual) Monocytes # (Manual) Basophils # (Manual) Metamyelocytes # Myelocytes # Promyelocytes # Nucleated RBCs Toxic Vacuolation Platelet Estimate Large Platelets Giant Platelets Plt Morphology Comment RBC Morphology Polychromasia Hypochromasia Spherocytes Pappenheimer Bodies Target Cells [place] Cells Schistocytes VBG pH VBG pCO2 VBG pO2 VBG HCO3 VBG O2 Saturation VBG Base Excess Sodium Potassium Chloride Carbon Dioxide Anion Gap BUN Creatinine Estim Creat Clear Calc Estimated GFR POC Glucose 140 H 137 H Random Glucose Calcium Phosphorus Magnesium Total Bilirubin AST ALT Alkaline Phosphatase Total Protein Albumin Beta-(1,3)-D-Glucan <31 B-(1,3)-D-Glucan Intrp Negative 07/02/24 07/02/24 07/03/24 20:30 23:19 04:12 WBC 24.8 H RBC 3.40 L Hgb 8.0 L Hct 24.3 L MCV 71.5 L MCH 23.5 L MCHC 32.9 RDW 30.4 H Plt Count 75 L MPV Not Reportable Immature Gran % (Auto) Cancelled Neut % (Auto) Cancelled Lymph % (Auto) Cancelled [place] % (Auto) Cancelled Eos % (Auto) Cancelled Baso % (Auto) Cancelled Lymph # (Auto) Cancelled [place] # (Auto) Cancelled Eos # (Auto) Cancelled Baso # (Auto) Cancelled Abs Immat Gran (auto) Cancelled Absolute Neuts (auto) Cancelled Absolute Nucleated RBC 1.010 H Nucleated RBC % (auto) 4.1 H Neutrophils % (Manual) 51 Band Neutrophils % 15 H Lymphocytes % (Manual) 10 L Monocytes % (Manual) 15 H Basophils % (Manual) 1 Metamyelocytes % 6 Myelocytes % 1 Promyelocytes % 1 Abs Neuts (Manual) 16.4 H Lymphocytes # (Manual) 2.5 Monocytes # (Manual) 3.7 H Basophils # (Manual) 0.2 Metamyelocytes # 1.5 Myelocytes # 0.2 Promyelocytes # 0.2 Nucleated RBCs 14 H Toxic Vacuolation PRESENT Platelet Estimate DECREASED Large Platelets PRESENT Giant Platelets PRESENT Plt Morphology Comment NOTED RBC Morphology NOTED Polychromasia 2+ (3-5) Hypochromasia 1+ (5-14) Spherocytes 2+ (3-5) Pappenheimer Bodies PRESENT Target Cells 2+ (15-30) [place] Cells 1+ (0-2) Schistocytes 1+ (0-2) VBG pH VBG pCO2 VBG pO2 VBG HCO3 VBG O2 Saturation VBG Base Excess Sodium 128 L Potassium 5.1 Chloride 92 L Carbon Dioxide 14 L Anion Gap 27 H BUN 86 H Creatinine 4.97 H* Estim Creat Clear Calc 20.0 Estimated GFR 9 POC Glucose 136 H 107 Random Glucose 78 Calcium 7.2 L Phosphorus 6.4 H Magnesium 1.9 Total Bilirubin 12.9 H AST 528 H ALT 181 H Alkaline Phosphatase 172 H Total Protein 6.0 L Albumin 2.1 L Beta-(1,3)-D-Glucan B-(1,3)-D-Glucan Intrp 07/03/24 04:17 WBC RBC Hgb Hct MCV MCH MCHC RDW Plt Count MPV Immature Gran % (Auto) Neut % (Auto) Lymph % (Auto) [place] % (Auto) Eos % (Auto) Baso % (Auto) Lymph # (Auto) [place] # (Auto) Eos # (Auto) Baso # (Auto) Abs Immat Gran (auto) Absolute Neuts (auto) Absolute Nucleated RBC Nucleated RBC % (auto) Neutrophils % (Manual) Band Neutrophils % Lymphocytes % (Manual) Monocytes % (Manual) Basophils % (Manual) Metamyelocytes % Myelocytes % Promyelocytes % Abs Neuts (Manual) Lymphocytes # (Manual) Monocytes # (Manual) Basophils # (Manual) Metamyelocytes # Myelocytes # Promyelocytes # Nucleated RBCs Toxic Vacuolation Platelet Estimate Large Platelets Giant Platelets Plt Morphology Comment RBC Morphology Polychromasia Hypochromasia Spherocytes Pappenheimer Bodies Target Cells [place] Cells Schistocytes VBG pH 7.39 VBG pCO2 26 VBG pO2 54 VBG HCO3 16 L VBG O2 Saturation 80.0 VBG Base Excess -7.0 Sodium Potassium Chloride Carbon Dioxide Anion Gap BUN Creatinine Estim Creat Clear Calc Estimated GFR POC Glucose Random Glucose Calcium Phosphorus Magnesium Total Bilirubin AST ALT Alkaline Phosphatase Total Protein Albumin Beta-(1,3)-D-Glucan B-(1,3)-D-Glucan Intrp Microbiology Microbiology Results: Microbiology 06/24/24 19:04 Blood - Venous Blood Culture - Final No growth after 5 days. 06/24/24 19:04 Blood - Venous Blood Culture - Final No growth after 5 days. 06/23/24 03:59 Blood - Venous Blood Culture - Final No growth after 5 days. 06/26/24 09:18 Trachea Gram Stain - Final 06/26/24 09:18 Trachea Sputum Culture - Final No growth. 06/23/24 05:30 Blood - Venous Blood Culture - Final No growth after 5 days. 06/18/24 15:26 Blood - Venous Blood Culture - Final No growth after 5 days. 06/18/24 15:26 Blood - Venous Blood Culture - Final No growth after 5 days. 06/18/24 20:10 Urine clean catch - Clean Catch Midstream Urine Culture - Final Progress Note: A&P Assessment and plan (1) Shock: Status: Acute (2) Acute respiratory failure: Status: Acute (3) Renal failure: Status: Acute (4) Hepatic failure: Status: Acute Plan Patient is a 59 Y F w/ obesity c/b diabetes mellitus, colon cancer s/p colectomy initially presenting to emergency department on 06/18 w/ abdominal pain, found to have incarcerated hernia as well as c/f metastasis to liver, admitted to floor and managed medically; hospital course c/b shock, c/b multi-system organ failure including acute renal failure, started hemodialysis 06/26, respiratory failure, intubated 06/24; ongoing [id number] discussions N: encephalopathy, likely toxic-metabolic CV: shock, likely septic, on phenylephrine and vasopressin gtts, to cross- titrate to norepinephrine gtt R: acute hypoxic respiratory failure, intubated 06/24, wean as tolerated GI: hepatic failure, likely d/t metastasis, shock, to monitor closely; incarcerated hernia, unfortunately not surgical candidate; prior colon cancer s/p colectomy : acute renal failure, started hemodialysis 06/26; appreciate nephrology recommendations; to monitor renal indices, electrolytes closely H: thrombocytopenia, improving; to hold chemical DVT prophylaxis until PLT > 100 ID: c/f septic shock, empiric vancomycin/cefepime/fluconazole E: to monitor hypo-/hyper-glycemia; hypothyroidism, on levothyroxine S: ongoing [id number] discussions Quality Stroke Does the patient have a stroke diagnosis?: No VTE Prior VTE?: No VTE Risk Level:: Medical - moderate - high VTE Device Contraindication: N/A - Device Ordered VTE Drug Contraindication: Treatment Not Tolerated
[2024-07-03] MEDS: Famotidine/PF 20 MG/2 ML VIAL IVPUSH (10:12)
[2024-07-03] MEDS: Calcium Chloride 1 GM/10 ML SYRINGE IVPUSH (10:13)
[2024-07-03] MEDS: Sodium Bicarbonate 8.4% 50 MEQ/50 ML SYRINGE IVPUSH (10:13)
[2024-07-03] MEDS: Albumin Human 25 % 50 ML 100 ML IV (10:13)
[2024-07-03 12:04] LABS: Glucose, Whole Blood 84 mg/dL (60-115)
[2024-07-03] MEDS: Fluconazole in NaCl,Iso-Osm 100 MG in Container,Empty 0 ML 50 MG IV (12:05)
[2024-07-03] MEDS: Phenylephrine HCL 100 MG in 0.9 % Sodium Chloride 250 ML 87.42 MG IVCONT (12:11)
[2024-07-03] MEDS: Norepinephrine Bitartrate/D5W 8 MG/250 ML PLAST..BAG 17.02 MG IVCONT (12:54)
--- NOTE | 2024-07-03 13:52 | MHC.CLN ---
F/U PT REMAINS INTUBATED. RECEIVING TF NEPRO AT 30ML/HR PROVIDES 1296KCALS (23KCALS/KG BASED ON IBW), 58G PROTEIN, 523ML FREE WATER FROM FORMULA. SKIN WITH STAGE I TO MID BACK. LABS REVIEWED. CONTINUE CURRENT TUBE FEEDING. MONITOR TOLERANCE AND LYTES.
[2024-07-03] MEDS: Heparin Sodium,Porcine 5,000 UNIT/ML VIAL 5000 UNIT INTRACATH (17:23)
[2024-07-03] MEDS: cefEPime HCl 1 GM in 0.9 % Sodium Chloride 50 ML IV (17:53)
[2024-07-03 18:01] LABS: Glucose, Whole Blood 82 mg/dL (60-115)
--- NOTE | 2024-07-03 19:00 | PC.NURSE ---
Late entry:? Assumed care of patient on 07/03/2024 at 0700.? Administered per MAR, See separate dialysis charting, during dialysis pt had multiple bursts of SVT and episodes of sinus bradycardia(MD made aware at those times). Per MD: Post dialysis, began titrating off of phenylephrine and transitioning to levophed for blood pressure support. No change in vasopressin rate. see MAR. Also significant today, patient code status changed from DNR to full code following conversation between provider and proxy.? Family to the bedside, education and emotional support provided. Patient vitals stable, see shift assessment. Patient handed off at approximately 1900 on 07/03/24.
[2024-07-03 19:24] LABS: Vancomycin Random 7.4 mcg/mL (15-20)
[2024-07-03] MEDS: vancomycin HCL 1,000 MG in 0.9 % Sodium Chloride 250 ML 270 MG IV (20:37)
[2024-07-03] MEDS: Norepinephrine Bitartrate/D5W 8 MG/250 ML PLAST..BAG 30.63 MG IVCONT (22:16)
[2024-07-04] VITALS (47 sets, daily range): BP systolic 97–128; BP diastolic 39–61; PULSE 92–111; RESP 18–38; TEMP 34.6–39.6; O2SAT 9–98
--- NOTE | 2024-07-04 | ECG_ITS ---
Test Reason : Tachyarrythmia Blood Pressure : */* mmHG Vent. Rate : 161 BPM Atrial Rate : * BPM P-R Int : * ms QRS Dur : 136 ms QT Int : 342 ms P-R-T Axes : * 79 -47 degrees QTcB Int : 559 ms Atrial fibrillation with rapid ventricular response Right bundle branch block Abnormal ECG When compared with ECG of 23-Jun-2024 03:15, No significant change was found Referred By: Sylvie Serna Electronically Signed By: CAPO CARRANZA
[2024-07-04 00:06] LABS: Glucose, Whole Blood 109 mg/dL (60-115)
[2024-07-04] MEDS: Norepinephrine Bitartrate/D5W 8 MG/250 ML PLAST..BAG 37.43 MG IVCONT (04:47)
[2024-07-04] MEDS: Albuterol/Iprat 2.5/0.5MG 3 ML AMPUL.NEB INHALE ×3 (04:56→16:11)
[2024-07-04 05:28] LABS: VBG Base Excess -6.7 mmol/L; VBG HCO3 16 mmol/L (22-26); VBG pCO2 27 mmHg; VBG pH 7.39 (7.32-7.43); VBG pO2 55 mmHg
[2024-07-04 05:45] LABS: Glucose, Whole Blood 106 mg/dL (60-115)
[2024-07-04] MEDS: Levothyroxine Sodium 100 MCG/5 ML VIAL 300 MCG IVPUSH (05:48)
[2024-07-04 06:15] LABS: Hematocrit 23.3 % (37.0-47.0); Hemoglobin 7.6 g/dl (12.0-16.0); Mean Corpuscular HGB Conc 32.6 g/dl (31.0-35.0); Mean Corpuscular Hemoglobin 23.8 pg (27.0-33.0); Red Blood Count 3.19 X10*6/uL (4.20-5.50); Red Cell Distribution Width 31.1 % (11.0-16.0)
[2024-07-04 06:16] LABS: NRBC Pct Auto 5.8 /100WBC (0.0-0.2); Platelet Count 76 X10*3/uL (160-400); WBC ABN SCTR FOR CBC 1
[2024-07-04 06:24] LABS: Anion Gap 25 (12-20); Blood Urea Nitrogen 82 mg/dL (9-16); Calcium 7.2 mg/dL (8.4-10.2); Carbon Dioxide 14 mmol/L (22-29); Chloride 95 mmol/L (96-108); Creatinine Clr Calc Pharmacy 24.1; Estimated Glomerular Filt Rate 11; Glucose Random 89 mg/dL (60-115); Phosphorus 6.1 mg/dL (2.7-4.5); Potassium 4.8 mmol/L (3.3-5.1); Sodium 129 mmol/L (135-145)
[2024-07-04 06:29] LABS: Venous Blood Gas Refer to POC result
[2024-07-04 07:01] LABS: Band Neutrophils Percent 14 % (3-5); Basophils Percent Manual 1 % (0-2); Lymphocytes Percent Manual 7 % (20-40); Metamyelocytes Percent 3 %; Monocytes Percent Manual 8 % (2-11); Myelocytes Percent 4 %; Neutrophils Percent Manual 62 % (45-73); Nucleated Red Blood Cells 7 /100WBC (0-0); Promyelocytes Percent 1 %
[2024-07-04] MEDS: Vasopressin 20 UNIT/100 ML INFUS..BTL 12 UNIT IVCONT ×3 (07:01→22:54)
[2024-07-04 07:07] LABS: Acanthocytes 1+ (0-2) /OIF; Burr Cells 1+ (0-2) /OIF; Microcytosis 2+ (15-30) /OIF; RBC Morphology NOTED; Schistocytes 1+ (0-2) /OIF; Target Cells 1+ (5-14) /OIF
[2024-07-04 07:08] LABS: Hypochromasia 1+ (5-14) /OIF; Pappenheimer Bodies PRESENT; Polychromasia 2+ (3-5) /OIF; Spherocytes 1+ (0-2) /OIF; Toxic Vacuolation PRESENT
[2024-07-04 07:09] LABS: Platelet Estimate DECREASED (NORMAL); Platelet Morphology Comment NORMAL
[2024-07-04 07:42] LABS: Basophils Abs Manual 0.3 X10*3/uL (0.0-0.2); Lymphocytes Absolute Manual 1.8 X10*3/uL (1.2-4.9); Metamyelocytes Absolute 0.8 X10*3/uL; Monocytes Absolute Manual 2.1 X10*3/uL (0.1-1.2); Neutrophils Absolute Manual 19.9 X10*3/uL (2.0-8.3); Promyelocytes Absolute 0.3 X10*3/uL; White Blood Count 26.2 X10*3/uL (4.8-10.8)
[2024-07-04] MEDS: Albumin Human 25 % 50 ML 100 ML IV ×8 (07:59→22:57)
[2024-07-04] MEDS: Chlorhexidine Gluc Oral Rinse 15 ML MOUTHWASH BUCCAL ×3 (08:06→20:08)
[2024-07-04] MEDS: Famotidine/PF 20 MG/2 ML VIAL IVPUSH (08:06)
[2024-07-04] MEDS: 0.9 % Sodium Chloride Flush 3 ML SYRINGE IVFLUSH ×2 (08:07→16:49)
[2024-07-04] MEDS: Artificial Tears Ophth Oint 3.5 GM TUBE 1 APPL EYE-BOTH (08:19)
--- NOTE | 2024-07-04 08:26 | P.PNCC_ITS ---
Subjective Subjective Date of Service: 07/04/24 Interval History: no significant overnight events Critical Care Time (minutes): 60 Physical Exam 2 Vital Signs: Vital Signs: Last Vital Signs Temp 99.7 F 07/04/24 08:00 Pulse 98 07/04/24 08:00 Resp 32 H 07/04/24 08:00 BP 109/48 L 07/04/24 08:00 Pulse Ox 90 L 07/04/24 08:00 O2 Del Method Mechanical Ventil ation 07/04/24 08:00 O2 Flow Rate 15 06/24/24 20:00 FiO2 50 07/04/24 08:00 BMI result Body Mass Index 66.6 Const: Other: intubated, not sedated; no appreciable spontaneous movements; appreciable morbid obesity General: no acute distress HEENT: Head: Yes normal to inspection, Yes normocephalic and Yes atraumatic Eyes: General: appearance normal, both eyes and all related structures Neck: Neck: Yes normal visual inspection, Yes full ROM, Yes no meningeal signs, Yes trachea midline and Yes supple Chest: Chest palpation & inspection: normal inspection of the chest Resp: Other: no appreciable overt rales, rhonchi, wheezing Effort & Inspection: normal respiratory effort Cardio: Rate: regular rate Rhythm: regular rhythm GI: Other: appreciable large ventral hernia, stable from prior Inspection: Yes normal to inspection, No Abdominal wall edema and No distended Palpation (GI): Soft to palpation, not firm, nontender, no guarding and not rigid Skin: General skin exam: no rashes or lesions noted Neuro: Other: no appreciable spontaneous movements; no appreciable response to noxious stimulus General: No moves all extremities and no meningeal signs Extrem: Other: appreciable anasarca General: Yes normal to inspection and Yes capillary refill normal Psych: Other: unable to assess Objective Data Labs 07/04/24 05:25 07/04/24 05:25 Labs: Laboratory Results - last 24 hr 07/03/24 07/03/24 07/03/24 11:51 17:42 18:58 WBC RBC Hgb Hct MCV MCH MCHC RDW Plt Count MPV Immature Gran % (Auto) Neut % (Auto) Lymph % (Auto) Becker % (Auto) Eos % (Auto) Baso % (Auto) Lymph # (Auto) Becker # (Auto) Eos # (Auto) Baso # (Auto) Abs Immat Gran (auto) Absolute Neuts (auto) Absolute Nucleated RBC Nucleated RBC % (auto) Neutrophils % (Manual) Band Neutrophils % Lymphocytes % (Manual) Monocytes % (Manual) Basophils % (Manual) Metamyelocytes % Myelocytes % Promyelocytes % Abs Neuts (Manual) Lymphocytes # (Manual) Monocytes # (Manual) Basophils # (Manual) Metamyelocytes # Myelocytes # Promyelocytes # Nucleated RBCs Toxic Vacuolation Platelet Estimate Plt Morphology Comment RBC Morphology Polychromasia Hypochromasia Microcytosis Spherocytes Pappenheimer Bodies Target Cells [place] Cells Acanthocytes (Spur) Schistocytes VBG pH VBG pCO2 VBG pO2 VBG HCO3 VBG O2 Saturation VBG Base Excess Sodium Potassium Chloride Carbon Dioxide Anion Gap BUN Creatinine Estim Creat Clear Calc Estimated GFR POC Glucose 84 82 Random Glucose Calcium Phosphorus Magnesium Albumin Random Vancomycin 7.4 L 07/03/24 07/04/24 07/04/24 23:47 05:23 05:25 WBC 26.2 H RBC 3.19 L Hgb 7.6 L Hct 23.3 L MCV 73.0 L MCH 23.8 L MCHC 32.6 RDW 31.1 H Plt Count 76 L MPV Not Reportable Immature Gran % (Auto) Cancelled Neut % (Auto) Cancelled Lymph % (Auto) Cancelled Becker % (Auto) Cancelled Eos % (Auto) Cancelled Baso % (Auto) Cancelled Lymph # (Auto) Cancelled Becker # (Auto) Cancelled Eos # (Auto) Cancelled Baso # (Auto) Cancelled Abs Immat Gran (auto) Cancelled Absolute Neuts (auto) Cancelled Absolute Nucleated RBC 1.520 H Nucleated RBC % (auto) 5.8 H Neutrophils % (Manual) 62 Band Neutrophils % 14 H Lymphocytes % (Manual) 7 L Monocytes % (Manual) 8 Basophils % (Manual) 1 Metamyelocytes % 3 Myelocytes % 4 Promyelocytes % 1 Abs Neuts (Manual) 19.9 H Lymphocytes # (Manual) 1.8 Monocytes # (Manual) 2.1 H Basophils # (Manual) 0.3 H Metamyelocytes # 0.8 Myelocytes # 1.0 Promyelocytes # 0.3 Nucleated RBCs 7 H Toxic Vacuolation PRESENT Platelet Estimate DECREASED Plt Morphology Comment NORMAL RBC Morphology NOTED Polychromasia 2+ (3-5) Hypochromasia 1+ (5-14) Microcytosis 2+ (15-30) Spherocytes 1+ (0-2) Pappenheimer Bodies PRESENT Target Cells 1+ (5-14) [place] Cells 1+ (0-2) Acanthocytes (Spur) 1+ (0-2) Schistocytes 1+ (0-2) VBG pH 7.39 VBG pCO2 27 VBG pO2 55 VBG HCO3 16 L VBG O2 Saturation 82.0 VBG Base Excess -6.7 Sodium 129 L Potassium 4.8 Chloride 95 L Carbon Dioxide 14 L Anion Gap 25 H BUN 82 H Creatinine 4.13 H* Estim Creat Clear Calc 24.1 Estimated GFR 11 POC Glucose 109 Random Glucose 89 Calcium 7.2 L Phosphorus 6.1 H Magnesium 2.0 Albumin 2.0 L Random Vancomycin 07/04/24 05:34 WBC RBC Hgb Hct MCV MCH MCHC RDW Plt Count MPV Immature Gran % (Auto) Neut % (Auto) Lymph % (Auto) Becker % (Auto) Eos % (Auto) Baso % (Auto) Lymph # (Auto) Becker # (Auto) Eos # (Auto) Baso # (Auto) Abs Immat Gran (auto) Absolute Neuts (auto) Absolute Nucleated RBC Nucleated RBC % (auto) Neutrophils % (Manual) Band Neutrophils % Lymphocytes % (Manual) Monocytes % (Manual) Basophils % (Manual) Metamyelocytes % Myelocytes % Promyelocytes % Abs Neuts (Manual) Lymphocytes # (Manual) Monocytes # (Manual) Basophils # (Manual) Metamyelocytes # Myelocytes # Promyelocytes # Nucleated RBCs Toxic Vacuolation Platelet Estimate Plt Morphology Comment RBC Morphology Polychromasia Hypochromasia Microcytosis Spherocytes Pappenheimer Bodies Target Cells Lauren Cells Acanthocytes (Spur) Schistocytes VBG pH VBG pCO2 VBG pO2 VBG HCO3 VBG O2 Saturation VBG Base Excess Sodium Potassium Chloride Carbon Dioxide Anion Gap BUN Creatinine Estim Creat Clear Calc Estimated GFR POC Glucose 106 Random Glucose Calcium Phosphorus Magnesium Albumin Random Vancomycin Microbiology Microbiology Results: Microbiology 06/24/24 19:04 Blood - Venous Blood Culture - Final No growth after 5 days. 06/24/24 19:04 Blood - Venous Blood Culture - Final No growth after 5 days. 06/23/24 03:59 Blood - Venous Blood Culture - Final No growth after 5 days. 06/26/24 09:18 Trachea Gram Stain - Final 06/26/24 09:18 Trachea Sputum Culture - Final No growth. 06/23/24 05:30 Blood - Venous Blood Culture - Final No growth after 5 days. 06/18/24 15:26 Blood - Venous Blood Culture - Final No growth after 5 days. 06/18/24 15:26 Blood - Venous Blood Culture - Final No growth after 5 days. 06/18/24 20:10 Urine clean catch - Clean Catch Midstream Urine Culture - Final Progress Note: A&P Assessment and plan (1) Shock: Status: Acute (2) Acute respiratory failure: Status: Acute (3) Renal failure: Status: Acute (4) Hepatic failure: Status: Acute (5) Encephalopathy: Status: Acute Plan Patient is a 59 Y F w/ obesity c/b diabetes mellitus, colon cancer s/p colectomy initially presenting to emergency department on 06/18 w/ abdominal pain, found to have incarcerated hernia as well as c/f metastasis to liver, admitted to floor and managed medically; hospital course c/b shock, c/b multi-system organ failure including acute renal failure, started hemodialysis 06/26, respiratory failure, intubated 06/24; ongoing [id number] discussions N: encephalopathy, likely toxic-metabolic, not improving despite off sedating gtts for days CV: shock, likely septic, norepinephrine and vasopressin gtts R: acute hypoxic respiratory failure, intubated 06/24, wean as tolerated GI: hepatic failure, likely d/t metastasis, shock, to monitor closely; incarcerated hernia, unfortunately not surgical candidate; prior colon cancer s/p colectomy : acute renal failure, started hemodialysis 06/26, last session 07/03; appreciate nephrology recommendations; to monitor renal indices, electrolytes closely H: thrombocytopenia, improving; to hold chemical DVT prophylaxis until PLT > 100 ID: c/f septic shock, empiric vancomycin/cefepime/fluconazole E: to monitor hypo-/hyper-glycemia; hypothyroidism, on levothyroxine S: ongoing [id number] discussions Quality Stroke Does the patient have a stroke diagnosis?: No VTE Prior VTE?: No VTE Risk Level:: Medical - moderate - high VTE Device Contraindication: N/A - Device Ordered VTE Drug Contraindication: Treatment Not Tolerated
[2024-07-04] MEDS: Calcium Chloride 1 GM/10 ML SYRINGE IVPUSH (08:50)
[2024-07-04] MEDS: Norepinephrine Bitartrate/NS 32 MG/250 ML PLAST..BAG 12.76 MG IVCONT (10:15)
--- NOTE | 2024-07-04 10:45 | MHC.CLN ---
F/U PT REMAINS INTUBATED. RECEIVES DIALYSIS. CONTINUE TUBE FEEDING NEPRO AT 30ML/HR PROVIDES 1296KCALS (23KCALS/KG BASED ON IBW), 58G PROTEIN, 523ML FREE WATER FROM FORMULA. SKIN WITH STAGE I TO MID BACK. LABS REVIEWED. CONTINUE CURRENT TUBE FEEDING. SHOWS SIGNIFICANT WEIGHT GAIN WITH EDEMA. MONITOR TOLERANCE AND LYTES.
[2024-07-04 12:06] LABS: Glucose, Whole Blood 86 mg/dL (60-115)
[2024-07-04] MEDS: Magnesium Sulfate/D5W 1 GM/100 ML PIGGYBACK IV (12:25)
[2024-07-04] MEDS: Fluconazole in NaCl,Iso-Osm 100 MG in Container,Empty 0 ML 50 MG IV (12:28)
--- NOTE | 2024-07-04 12:50 | MHC.CM.PN ---
Pt with hepatic carcinoma and multi organ system failures: pt's dtr in agreement w/TRIAL MANAGER but would like pt's other family members to contribute to goals of care/TRIAL MANAGER discussions. Pt is not a candidate for interventions d/t unstable overall state. CM to follow for support.
--- NOTE | 2024-07-04 13:07 | PM.PNNEP ---
Subjective Subjective Date of Service: 07/04/24 Interval history: No significant overnight events; Full code now. On pressors. Acidotic Physical Exam Vital Signs: Vital Signs: Last Vital Signs Temp 99.7 F 07/04/24 11:00 Pulse 99 07/04/24 12:33 Resp 30 H 07/04/24 12:00 BP 104/48 L 07/04/24 12:33 Pulse Ox 90 L 07/04/24 12:00 O2 Del Method Mechanical Ventil ation 07/04/24 12:00 O2 Flow Rate 15 06/24/24 20:00 FiO2 50 07/04/24 12:00 BMI result Body Mass Index 66.6 Const: General: no acute distress Neck: Other: HD catheter inplace Resp: Auscultation: diminished lung sounds Cardio: Rate: regular rate GI: Palpation (GI): Soft to palpation Neuro: Other: Intubated and sedated Objective Data Labs 07/04/24 05:25 07/04/24 05:25 Labs: Laboratory Results - last 24 hr 07/03/24 07/03/24 07/03/24 17:42 18:58 23:47 WBC RBC Hgb Hct MCV MCH MCHC RDW Plt Count MPV Immature Gran % (Auto) Neut % (Auto) Lymph % (Auto) [place] % (Auto) Eos % (Auto) Baso % (Auto) Lymph # (Auto) [place] # (Auto) Eos # (Auto) Baso # (Auto) Abs Immat Gran (auto) Absolute Neuts (auto) Absolute Nucleated RBC Nucleated RBC % (auto) Neutrophils % (Manual) Band Neutrophils % Lymphocytes % (Manual) Monocytes % (Manual) Basophils % (Manual) Metamyelocytes % Myelocytes % Promyelocytes % Abs Neuts (Manual) Lymphocytes # (Manual) Monocytes # (Manual) Basophils # (Manual) Metamyelocytes # Myelocytes # Promyelocytes # Nucleated RBCs Toxic Vacuolation Platelet Estimate Plt Morphology Comment RBC Morphology Polychromasia Hypochromasia Microcytosis Spherocytes Pappenheimer Bodies Target Cells [place] Cells Acanthocytes (Spur) Schistocytes VBG pH VBG pCO2 VBG pO2 VBG HCO3 VBG O2 Saturation VBG Base Excess Sodium Potassium Chloride Carbon Dioxide Anion Gap BUN Creatinine Estim Creat Clear Calc Estimated GFR POC Glucose 82 109 Random Glucose Calcium Phosphorus Magnesium Albumin Random Vancomycin 7.4 L 07/04/24 07/04/24 07/04/24 05:23 05:25 05:34 WBC 26.2 H RBC 3.19 L Hgb 7.6 L Hct 23.3 L MCV 73.0 L MCH 23.8 L MCHC 32.6 RDW 31.1 H Plt Count 76 L MPV Not Reportable Immature Gran % (Auto) Cancelled Neut % (Auto) Cancelled Lymph % (Auto) Cancelled [place] % (Auto) Cancelled Eos % (Auto) Cancelled Baso % (Auto) Cancelled Lymph # (Auto) Cancelled [place] # (Auto) Cancelled Eos # (Auto) Cancelled Baso # (Auto) Cancelled Abs Immat Gran (auto) Cancelled Absolute Neuts (auto) Cancelled Absolute Nucleated RBC 1.520 H Nucleated RBC % (auto) 5.8 H Neutrophils % (Manual) 62 Band Neutrophils % 14 H Lymphocytes % (Manual) 7 L Monocytes % (Manual) 8 Basophils % (Manual) 1 Metamyelocytes % 3 Myelocytes % 4 Promyelocytes % 1 Abs Neuts (Manual) 19.9 H Lymphocytes # (Manual) 1.8 Monocytes # (Manual) 2.1 H Basophils # (Manual) 0.3 H Metamyelocytes # 0.8 Myelocytes # 1.0 Promyelocytes # 0.3 Nucleated RBCs 7 H Toxic Vacuolation PRESENT Platelet Estimate DECREASED Plt Morphology Comment NORMAL RBC Morphology NOTED Polychromasia 2+ (3-5) Hypochromasia 1+ (5-14) Microcytosis 2+ (15-30) Spherocytes 1+ (0-2) Pappenheimer Bodies PRESENT Target Cells 1+ (5-14) Lauren Cells 1+ (0-2) Acanthocytes (Spur) 1+ (0-2) Schistocytes 1+ (0-2) VBG pH 7.39 VBG pCO2 27 VBG pO2 55 VBG HCO3 16 L VBG O2 Saturation 82.0 VBG Base Excess -6.7 Sodium 129 L Potassium 4.8 Chloride 95 L Carbon Dioxide 14 L Anion Gap 25 H BUN 82 H Creatinine 4.13 H* Estim Creat Clear Calc 24.1 Estimated GFR 11 POC Glucose 106 Random Glucose 89 Calcium 7.2 L Phosphorus 6.1 H Magnesium 2.0 Albumin 2.0 L Random Vancomycin 07/04/24 11:57 WBC RBC Hgb Hct MCV MCH MCHC RDW Plt Count MPV Immature Gran % (Auto) Neut % (Auto) Lymph % (Auto) [place] % (Auto) Eos % (Auto) Baso % (Auto) Lymph # (Auto) [place] # (Auto) Eos # (Auto) Baso # (Auto) Abs Immat Gran (auto) Absolute Neuts (auto) Absolute Nucleated RBC Nucleated RBC % (auto) Neutrophils % (Manual) Band Neutrophils % Lymphocytes % (Manual) Monocytes % (Manual) Basophils % (Manual) Metamyelocytes % Myelocytes % Promyelocytes % Abs Neuts (Manual) Lymphocytes # (Manual) Monocytes # (Manual) Basophils # (Manual) Metamyelocytes # Myelocytes # Promyelocytes # Nucleated RBCs Toxic Vacuolation Platelet Estimate Plt Morphology Comment RBC Morphology Polychromasia Hypochromasia Microcytosis Spherocytes Pappenheimer Bodies Target Cells [place] Cells Acanthocytes (Spur) Schistocytes VBG pH VBG pCO2 VBG pO2 VBG HCO3 VBG O2 Saturation VBG Base Excess Sodium Potassium Chloride Carbon Dioxide Anion Gap BUN Creatinine Estim Creat Clear Calc Estimated GFR POC Glucose 86 Random Glucose Calcium Phosphorus Magnesium Albumin Random Vancomycin Microbiology Microbiology Results: Microbiology 06/24/24 19:04 Blood - Venous Blood Culture - Final No growth after 5 days. 06/24/24 19:04 Blood - Venous Blood Culture - Final No growth after 5 days. 06/23/24 03:59 Blood - Venous Blood Culture - Final No growth after 5 days. 06/26/24 09:18 Trachea Gram Stain - Final 06/26/24 09:18 Trachea Sputum Culture - Final No growth. 06/23/24 05:30 Blood - Venous Blood Culture - Final No growth after 5 days. 06/18/24 15:26 Blood - Venous Blood Culture - Final No growth after 5 days. 06/18/24 15:26 Blood - Venous Blood Culture - Final No growth after 5 days. 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
[2024-07-04 17:23] LABS: Glucose, Whole Blood 80 mg/dL (60-115)
[2024-07-04] MEDS: Sodium Bicarbonate 8.4% 50 MEQ/50 ML SYRINGE IVPUSH (17:55)
[2024-07-04] MEDS: Amiodarone/Dextrose 150 MG/100 ML PLAST..BAG 600 MG IV (17:55)
[2024-07-04] MEDS: Amiodarone HCL 900 MG in 0.9 % Sodium Chloride 500 ML 34.53 MG IVCONT (18:11)
[2024-07-04] MEDS: cefEPime HCl 1 GM in 0.9 % Sodium Chloride 50 ML IV (18:11)
[2024-07-04] MEDS: metroNIDAZOLE/NS 500 MG/100 ML PIGGYBACK 100 MG IV (18:20)
[2024-07-04 18:41] LABS: Vancomycin Random 13.7 mcg/mL (15-20)
--- NOTE | 2024-07-04 19:00 | PC.NURSE ---
Assumed care patient 07/04/24, at 0700,? See shift assessment for patient head to toe. Repositioning tenuous at this time related to oxygen desaturation and increased O2 requirements overnight.? Patient received dialysis today. Noticed discrepancy with cumulative I+O charting. Dialysis output not being recorded in cumulative report fluid volume. Manually calculated all dialysis outputs treatments. Patient is 31.9 liters fluid positive today post dialysis treatment. 5 liters removed today. Reported discrepancy to state tested nursing assistant to have problem resolved, reported cumulative I+O to MD who ordered additional dialysis today.? MD stated: plan to get Head CT when patient is stable for transport. Throughout the afternoon, post dialysis multiple sustained bouts of SVT 160s-220s, MD aware no new orders, code cart brought outside the room, place her pads placed on chest, pulses marked with Doppler. Patient began to sustain A-fib RVR, MD made aware. Ordered EKG, and medications (per MAR) Result of EKG confirmed A-fib RVR with right bundle branch block. Amiodarone bolus infused and maintenance dose started. See MAR for related medications and titration.? Patient handed off in RN to RN report at 1900 on 07/04/24
[2024-07-04] MEDS: Norepinephrine Bitartrate/NS 32 MG/250 ML PLAST..BAG 22.97 MG IVCONT (19:09)
[2024-07-04] MEDS: vancomycin HCL 500 MG in 0.9 % Sodium Chloride 100 ML 110 MG IV (20:08)
[2024-07-04] MEDS: Acetaminophen 1,000 MG/100 ML PIGGYBACK 400 MG IV (20:09)
[2024-07-04 20:53] LABS: Albumin Level 2.4 g/dL (3.5-5.0); Anion Gap 25 (12-20); Blood Urea Nitrogen 66 mg/dL (9-16); Carbon Dioxide 18 mmol/L (22-29); Chloride 95 mmol/L (96-108); Creatinine Clr Calc Pharmacy 29.6; Estimated Glomerular Filt Rate 14; Glucose Random 69 mg/dL (60-115); Magnesium 2.1 mg/dL (1.6-2.6); Phosphorus 4.8 mg/dL (2.7-4.5); Potassium 4.3 mmol/L (3.3-5.1); Sodium 134 mmol/L (135-145)
[2024-07-05] VITALS (70 sets, daily range): BP systolic 53–148; BP diastolic 11–87; PULSE 52–175; RESP 12–36; TEMP 34.9–40; O2SAT 62–96; BMI 66.6
[2024-07-05] MEDS: Dextrose 50 % 25 GM/50 ML SYRINGE IVPUSH ×5 (00:10→16:20)
[2024-07-05 00:14] LABS: Glucose, Whole Blood 60 mg/dL (60-115)
[2024-07-05 00:31] LABS: Glucose, Whole Blood 120 mg/dL (60-115)
[2024-07-05] MEDS: metroNIDAZOLE/NS 500 MG/100 ML PIGGYBACK 100 MG IV ×3 (01:04→16:34)
[2024-07-05] MEDS: Acetaminophen 1,000 MG/100 ML PIGGYBACK 400 MG IV (01:05)
[2024-07-05] MEDS: Sodium Bicarbonate 8.4% 50 MEQ/50 ML SYRINGE IVPUSH ×5 (01:32→18:50)
[2024-07-05] MEDS: Norepinephrine Bitartrate/NS 32 MG/250 ML PLAST..BAG 42.54 MG IVCONT (03:18)
[2024-07-05] MEDS: Levothyroxine Sodium 100 MCG/5 ML VIAL 300 MCG IVPUSH (05:32)
[2024-07-05 05:40] LABS: VBG HCO3 11 mmol/L (22-26); VBG pCO2 29 mmHg; VBG pH 7.17 (7.32-7.43); VBG pO2 52 mmHg
[2024-07-05 05:42] LABS: Venous Blood Gas Refer to POC result
[2024-07-05 05:51] LABS: Ammonia 63 umol/L (13-55)
[2024-07-05 05:55] LABS: INTERNATIONAL NORM RATIO 2.9 (0.9-1.1); Prothrombin Time 34.1 SEC (10.9-12.4)
[2024-07-05] MEDS: Vasopressin 20 UNIT/100 ML INFUS..BTL 12 UNIT IVCONT ×3 (05:59→21:33)
[2024-07-05] MEDS: Sodium Bicarbonate 8.4% 150 MEQ in Dextrose 5 % 850 ML 100 MEQ IV ×2 (06:02→15:58)
[2024-07-05 06:08] LABS: Hematocrit 23.6 % (37.0-47.0); Hemoglobin 7.2 g/dl (12.0-16.0); Mean Corpuscular HGB Conc 30.5 g/dl (31.0-35.0); Mean Corpuscular Hemoglobin 24.2 pg (27.0-33.0); Mean Corpuscular Volume 79.5 fL (80.0-98.0); NRBC Pct Auto 7.7 /100WBC (0.0-0.2); PLT CLUMP 1; Red Blood Count 2.97 X10*6/uL (4.20-5.50); WBC ABN SCTR FOR CBC 1
[2024-07-05 06:10] LABS: White Blood Count 37.5 X10*3/uL (4.8-10.8)
[2024-07-05 06:22] LABS: Albumin Level 2.6 g/dL (3.5-5.0); Anion Gap 32 (12-20); Blood Urea Nitrogen 71 mg/dL (9-16); Calcium 7.3 mg/dL (8.4-10.2); Carbon Dioxide 11 mmol/L (22-29); Chloride 95 mmol/L (96-108); Creatinine Clr Calc Pharmacy 25.8; Estimated Glomerular Filt Rate 12; Glucose Random 21 mg/dL (60-115); Magnesium 2.4 mg/dL (1.6-2.6); Phosphorus 7.9 mg/dL (2.7-4.5); Potassium 6.1 mmol/L (3.3-5.1); Sodium 132 mmol/L (135-145)
[2024-07-05 06:28] LABS: Atypical Lymph Absolute Manual 0.4 x10*3/uL; Atypical Lymphs Percent Manual 1 % (0-6); Band Neutrophils Percent 13 % (3-5); Eosinophils Absolute Manual 0.8 X10*3/uL (0.0-0.4); Eosinophils Percent Manual 2 % (0-4); Lymphocytes Absolute Manual 5.3 X10*3/uL (1.2-4.9); Lymphocytes Percent Manual 14 % (20-40); Metamyelocytes Absolute 1.9 X10*3/uL; Metamyelocytes Percent 5 %; Monocytes Absolute Manual 3.8 X10*3/uL (0.1-1.2); Monocytes Percent Manual 10 % (2-11); Myelocytes Absolute 1.1 X10*/uL; Myelocytes Percent 3 %; Neutrophils Percent Manual 51 % (45-73); Nucleated Red Blood Cells 7 /100WBC (0-0); Promyelocytes Absolute 0.4 X10*3/uL; Promyelocytes Percent 1 %; TSH reflex Free T4 0.03 uIU/mL (0.32-4.0)
[2024-07-05 06:29] LABS: Acanthocytes 1+ (0-2) /OIF; Giant Platelet PRESENT; Large Platelet PRESENT; Platelet Estimate DECREASED (NORMAL); Platelet Morphology Comment NOTED; RBC Morphology NOTED
[2024-07-05 06:30] LABS: Hypochromasia 1+ (5-14) /OIF; Platelet Count 89 X10*3/uL (160-400); Polychromasia 2+ (3-5) /OIF; Schistocytes 1+ (0-2) /OIF; Spherocytes 1+ (0-2) /OIF; Target Cells 1+ (5-14) /OIF
--- NOTE | 2024-07-05 06:31 | PC.NURSE ---
Upon initial assessment at 1900- family visiting at bedside. Pt unresponsive, remains off sedation. Tmax 104.2 via core esophageal probe, given IV APAP x2 per JUL and multiple ice bags applied and placed on cooling blanket. Levophed and vasopressin gtts infusing per JUL. Afib on tele, HR 90-100s, amiodarone gtt infusing per JUL. Generalized anasarca noted throughout. ETT #7.5, 23 cm at lip. On ACVC+ settings. TF infusing at goal. Anuric. Multiple skin integrity concerns- see wound/PI assessment. Repostioned in bed as tolerBed locked in lowest position. At approx 0015- pt converted to junctional rhythm, HR down to 50s with frequent ectopy , SBP dropped to 70s. Increasing vasopressor/FiO2 requirements, EMILY Devries notified- new order for 1 amp of bicarb IVP. Epi gtt ordered and started per JUL. All vasopressors titrated to maintain HR > 60 and MAP > 65. 3 hypoglycemic episodes this shift- given total of 3 amps of D50 IVP. MILKING MACHINE TECHNICIAN aware of all critical labs this AM- additional amp of bicarb IVP and gtt ordered and started per JUL. Dialysis nurse at bedside at approx 0615 to attempt iHD.
[2024-07-05 06:48] LABS: Glucose, Whole Blood 46 mg/dL (60-115)
[2024-07-05] MEDS: Dextrose 10 % 1,000 ML 75 ML IVCONT (06:57)
[2024-07-05 07:02] LABS: Free T4 (Free Thyroxine) 0.78 ng/dL (0.71-1.85)
[2024-07-05 07:12] LABS: Glucose, Whole Blood 95 mg/dL (60-115)
--- NOTE | 2024-07-05 07:53 | P.PNCC_ITS ---
Subjective Subjective Date of Service: 07/05/24 Interval History: interval worsening of critical illness including worsening acidosis, bradycardia, shock, and hypoglycemia; patient daughter called this AM to urgently come to hospital Critical Care Time (minutes): 90 Physical Exam 2 Vital Signs: Vital Signs: Last Vital Signs Temp 102.8 F H 07/05/24 07:00 Pulse 76 07/05/24 07:00 Resp 28 H 07/05/24 07:00 BP 105/39 L 07/05/24 07:00 Pulse Ox 91 L 07/05/24 07:00 O2 Del Method Mechanical Ventil ation 07/05/24 07:00 O2 Flow Rate 15 06/24/24 20:00 FiO2 100 07/05/24 07:00 BMI result Body Mass Index 66.6 Const: Other: intubated, not sedated; no appreciable spontaneous movements; appreciably jaundiced HEENT: Head: Yes normal to inspection, Yes normocephalic and Yes atraumatic Eyes: Other: pupils 4 mm, sluggish bilaterally to light Neck: Neck: Yes normal visual inspection, Yes full ROM, Yes no meningeal signs, Yes trachea midline and Yes supple Chest: Chest palpation & inspection: normal inspection of the chest Resp: Other: appreciable end-expiratory wheezing; no appreciable overt rales, rhonchi Cardio: Rate: regular rate Rhythm: regular rhythm GI: Other: appreciable large ventral hernia, unchanged from prior Palpation (GI): Soft to palpation Skin: Other: appreciable jaundice Neuro: General: No tone normal, No moves all extremities and no meningeal signs Extrem: Other: appreciable anasarca Psych: Other: unable to assess Objective Data Labs 07/05/24 05:35 07/05/24 05:35 Labs: Laboratory Results - last 24 hr 07/04/24 07/04/24 07/04/24 11:57 17:14 18:02 WBC RBC Hgb Hct MCV MCH MCHC RDW Plt Count MPV Immature Gran % (Auto) Neut % (Auto) Lymph % (Auto) [place] % (Auto) Eos % (Auto) Baso % (Auto) Lymph # (Auto) [place] # (Auto) Eos # (Auto) Baso # (Auto) Abs Immat Gran (auto) Absolute Neuts (auto) Absolute Nucleated RBC Nucleated RBC % (auto) Neutrophils % (Manual) Band Neutrophils % Lymphocytes % (Manual) Atypical Lymphs % (Man) Monocytes % (Manual) Eosinophils % (Manual) Metamyelocytes % Myelocytes % Promyelocytes % Abs Neuts (Manual) Lymphocytes # (Manual) Atyp Lymphs # (Manual) Monocytes # (Manual) Eosinophils # (Manual) Metamyelocytes # Myelocytes # Promyelocytes # Nucleated RBCs Platelet Estimate Large Platelets Giant Platelets Plt Morphology Comment RBC Morphology Polychromasia Hypochromasia Spherocytes Target Cells Acanthocytes (Spur) Schistocytes PT INR VBG pH VBG pCO2 VBG pO2 VBG HCO3 VBG O2 Saturation VBG Base Excess Sodium Potassium Chloride Carbon Dioxide Anion Gap BUN Creatinine Estim Creat Clear Calc Estimated GFR POC Glucose 86 80 Random Glucose Calcium Phosphorus Magnesium Ammonia Albumin TSH Free T4 Random Vancomycin 13.7 L Blood Type B Positive Antibody Screen NEGATIVE 07/04/24 07/05/24 07/05/24 20:07 00:05 00:27 WBC RBC Hgb Hct MCV MCH MCHC RDW Plt Count MPV Immature Gran % (Auto) Neut % (Auto) Lymph % (Auto) [place] % (Auto) Eos % (Auto) Baso % (Auto) Lymph # (Auto) [place] # (Auto) Eos # (Auto) Baso # (Auto) Abs Immat Gran (auto) Absolute Neuts (auto) Absolute Nucleated RBC Nucleated RBC % (auto) Neutrophils % (Manual) Band Neutrophils % Lymphocytes % (Manual) Atypical Lymphs % (Man) Monocytes % (Manual) Eosinophils % (Manual) Metamyelocytes % Myelocytes % Promyelocytes % Abs Neuts (Manual) Lymphocytes # (Manual) Atyp Lymphs # (Manual) Monocytes # (Manual) Eosinophils # (Manual) Metamyelocytes # Myelocytes # Promyelocytes # Nucleated RBCs Platelet Estimate Large Platelets Giant Platelets Plt Morphology Comment RBC Morphology Polychromasia Hypochromasia Spherocytes Target Cells Acanthocytes (Spur) Schistocytes PT INR VBG pH VBG pCO2 VBG pO2 VBG HCO3 VBG O2 Saturation VBG Base Excess Sodium 134 L Potassium 4.3 Chloride 95 L Carbon Dioxide 18 L Anion Gap 25 H BUN 66 H Creatinine 3.36 H Estim Creat Clear Calc 29.6 Estimated GFR 14 POC Glucose 60 120 H Random Glucose 69 Calcium 7.0 L Phosphorus 4.8 H Magnesium 2.1 Ammonia Albumin 2.4 L TSH Free T4 Random Vancomycin Blood Type Antibody Screen 07/05/24 07/05/24 07/05/24 05:35 05:37 06:45 WBC 37.5 H* RBC 2.97 L Hgb 7.2 L Hct 23.6 L MCV 79.5 L D MCH 24.2 L MCHC 30.5 L RDW 31.0 H Plt Count 89 L MPV Not Reportable Immature Gran % (Auto) Cancelled Neut % (Auto) Cancelled Lymph % (Auto) Cancelled [place] % (Auto) Cancelled Eos % (Auto) Cancelled Baso % (Auto) Cancelled Lymph # (Auto) Cancelled [place] # (Auto) Cancelled Eos # (Auto) Cancelled Baso # (Auto) Cancelled Abs Immat Gran (auto) Cancelled Absolute Neuts (auto) Cancelled Absolute Nucleated RBC 2.900 H Nucleated RBC % (auto) 7.7 H Neutrophils % (Manual) 51 Band Neutrophils % 13 H Lymphocytes % (Manual) 14 L Atypical Lymphs % (Man) 1 Monocytes % (Manual) 10 Eosinophils % (Manual) 2 Metamyelocytes % 5 Myelocytes % 3 Promyelocytes % 1 Abs Neuts (Manual) 24.0 H Lymphocytes # (Manual) 5.3 H Atyp Lymphs # (Manual) 0.4 Monocytes # (Manual) 3.8 H Eosinophils # (Manual) 0.8 H Metamyelocytes # 1.9 Myelocytes # 1.1 Promyelocytes # 0.4 Nucleated RBCs 7 H Platelet Estimate DECREASED Large Platelets PRESENT Giant Platelets PRESENT Plt Morphology Comment NOTED RBC Morphology NOTED Polychromasia 2+ (3-5) Hypochromasia 1+ (5-14) Spherocytes 1+ (0-2) Target Cells 1+ (5-14) Acanthocytes (Spur) 1+ (0-2) Schistocytes 1+ (0-2) PT 34.1 H D INR 2.9 H VBG pH 7.17 L* VBG pCO2 29 VBG pO2 52 VBG HCO3 11 L VBG O2 Saturation 67.0 VBG Base Excess -16.0 Sodium 132 L Potassium 6.1 H* D Chloride 95 L Carbon Dioxide 11 L Anion Gap 32 H BUN 71 H Creatinine 3.86 H Estim Creat Clear Calc 25.8 Estimated GFR 12 POC Glucose 46 L* Random Glucose 21 L* Calcium 7.3 L Phosphorus 7.9 H Magnesium 2.4 Ammonia 63 H Albumin 2.6 L TSH 0.03 L Free T4 0.78 Random Vancomycin Blood Type Antibody Screen 07/05/24 07:09 WBC RBC Hgb Hct MCV MCH MCHC RDW Plt Count MPV Immature Gran % (Auto) Neut % (Auto) Lymph % (Auto) [place] % (Auto) Eos % (Auto) Baso % (Auto) Lymph # (Auto) [place] # (Auto) Eos # (Auto) Baso # (Auto) Abs Immat Gran (auto) Absolute Neuts (auto) Absolute Nucleated RBC Nucleated RBC % (auto) Neutrophils % (Manual) Band Neutrophils % Lymphocytes % (Manual) Atypical Lymphs % (Man) Monocytes % (Manual) Eosinophils % (Manual) Metamyelocytes % Myelocytes % Promyelocytes % Abs Neuts (Manual) Lymphocytes # (Manual) Atyp Lymphs # (Manual) Monocytes # (Manual) Eosinophils # (Manual) Metamyelocytes # Myelocytes # Promyelocytes # Nucleated RBCs Platelet Estimate Large Platelets Giant Platelets Plt Morphology Comment RBC Morphology Polychromasia Hypochromasia Spherocytes Target Cells Acanthocytes (Spur) Schistocytes PT INR VBG pH VBG pCO2 VBG pO2 VBG HCO3 VBG O2 Saturation VBG Base Excess Sodium Potassium Chloride Carbon Dioxide Anion Gap BUN Creatinine Estim Creat Clear Calc Estimated GFR POC Glucose 95 Random Glucose Calcium Phosphorus Magnesium Ammonia Albumin TSH Free T4 Random Vancomycin Blood Type Antibody Screen Microbiology Microbiology Results: Microbiology 06/24/24 19:04 Blood - Venous Blood Culture - Final No growth after 5 days. 06/24/24 19:04 Blood - Venous Blood Culture - Final No growth after 5 days. 06/23/24 03:59 Blood - Venous Blood Culture - Final No growth after 5 days. 06/26/24 09:18 Trachea Gram Stain - Final 06/26/24 09:18 Trachea Sputum Culture - Final No growth. 06/23/24 05:30 Blood - Venous Blood Culture - Final No growth after 5 days. 06/18/24 15:26 Blood - Venous Blood Culture - Final No growth after 5 days. 06/18/24 15:26 Blood - Venous Blood Culture - Final No growth after 5 days. 06/18/24 20:10 Urine clean catch - Clean Catch Midstream Urine Culture - Final Progress Note: A&P Assessment and plan (1) Shock: Status: Acute (2) Acute respiratory failure: Status: Acute (3) Renal failure: Status: Acute Plan Patient is a 59 Y F w/ obesity c/b diabetes mellitus, colon cancer s/p colectomy initially presenting to emergency department on 06/18 w/ abdominal pain, found to have incarcerated hernia as well as c/f metastasis to liver, admitted to floor and managed medically; hospital course c/b shock, c/b multi-system organ failure including acute renal failure, started hemodialysis 06/26, respiratory failure, intubated 06/24; ongoing [id number] discussions N: encephalopathy, likely toxic-metabolic, not improving despite off sedating gtts for days; would obtain CT H, though too unstable to tolerate imaging CV: shock, likely multi-factorial including septic and cardiogenic, worsening; norepinephrine, vasopressin, epinephrine gtts R: acute hypoxic respiratory failure, intubated 06/24, worsening GI: hepatic failure, likely d/t metastasis, shock, to monitor closely; incarcerated hernia, unfortunately not surgical candidate; prior colon cancer s/p colectomy : acute renal failure, started hemodialysis 06/26, last session 07/03; appreciate nephrology recommendations; to monitor renal indices, electrolytes closely H: thrombocytopenia, improving; to hold chemical DVT prophylaxis until PLT > 100 ID: c/f septic shock, empiric vancomycin/cefepime/metronidazole E: hypoglycemia, on D5 gtt; hypothyroidism, on levothyroxine S: interval worsening of critical illness; ongoing [id number] discussions Quality Stroke Does the patient have a stroke diagnosis?: No VTE Prior VTE?: No VTE Risk Level:: Medical - moderate - high VTE Device Contraindication: N/A - Device Ordered VTE Drug Contraindication: Treatment Not Tolerated
[2024-07-05 07:58] LABS: Lactic Acid 15.7 mmol/L (0.5-2.0)
[2024-07-05 08:06] LABS: Glucose, Whole Blood 75 mg/dL (60-115)
[2024-07-05] MEDS: Norepinephrine Bitartrate/NS 32 MG/250 ML PLAST..BAG 54.45 MG IVCONT (08:30)
[2024-07-05] MEDS: Chlorhexidine Gluc Oral Rinse 15 ML MOUTHWASH BUCCAL ×3 (08:31→21:59)
[2024-07-05] MEDS: Famotidine/PF 20 MG/2 ML VIAL IVPUSH (08:32)
[2024-07-05] MEDS: 0.9 % Sodium Chloride Flush 3 ML SYRINGE IVFLUSH ×2 (08:32→16:33)
[2024-07-05] MEDS: Calcium Chloride 1 GM/10 ML SYRINGE IVPUSH ×2 (08:40→20:26)
[2024-07-05 09:27] LABS: Reflex Lactate? Lactic Acid Added
--- NOTE | 2024-07-05 09:42 | MHC.CLN ---
F/U PT REMAINS INTUBATED. RECEIVES DIALYSIS DAILY.. RESUME TUBE FEEDING ABLE: [facility] AT 30ML/HR PROVIDES 1296KCALS (23KCALS/KG BASED ON IBW), 58G PROTEIN, 523ML FREE WATER FROM FORMULA. SKIN WITH STAGE I TO MID BACK. LABS REVIEWED. SHOWS SIGNIFICANT WEIGHT GAIN WITH EDEMA. FOLLOW WITH TEAM FOR PLAN OF CARE.
--- NOTE | 2024-07-05 10:10 | P.ACPN_ITS ---
Advanced Care Planning Note Advanced Care Planning Note Discussed with: family member(s) Time spent (in minutes): 15 Narrative: we encouraged Ms. Ezequiel Levy's daughter, Mary, to come to the hospital this AM d/t her declining clinical status; I met Ms. Ezequiel Levy's daughter and close friend; we discussed her worsening critical illness, which they expressed understanding; we also discussed code status; Mary questioned the use of CPR as her mother is so sick and unlikely to recover to have a high quality of life; given such, Ms. Ezequiel Levy's code status was changed to DNR; Mary stated that she believes Ms. Ezequiel Levy's philosophy of care should be changed to comfort- focused care; however, Mary is being sensitive to her brother, who is very close to Ms. Ezequiel Levy; Mary understands her worsening clinical status, and stated she will more firmly speak to her brother today Problems Discussed (1) Shock: (2) Acute respiratory failure: (3) Renal failure:
[2024-07-05 10:17] LABS: ~Lactic Acid-LAB USE ONLY 14.6 mmol/L (0.5-2.0)
[2024-07-05 11:20] LABS: Glucose, Whole Blood 56 mg/dL (60-115)
[2024-07-05 11:42] LABS: Reflex Lactate? 2 Y
[2024-07-05 11:56] LABS: Glucose, Whole Blood 94 mg/dL (60-115)
[2024-07-05 12:29] LABS: Venous Blood Gas Refer to POC result
[2024-07-05 12:31] LABS: Hematocrit 22.1 % (37.0-47.0); Mean Corpuscular HGB Conc 30.3 g/dl (31.0-35.0); Mean Corpuscular Hemoglobin 24.3 pg (27.0-33.0); Mean Corpuscular Volume 80.1 fL (80.0-98.0); PLT CLUMP 1; Red Blood Count 2.76 X10*6/uL (4.20-5.50); Red Cell Distribution Width 29.8 % (11.0-16.0)
[2024-07-05 12:37] LABS: NRBC Pct Auto 11.3 /100WBC (0.0-0.2)
[2024-07-05 12:38] LABS: White Blood Count 35.8 X10*3/uL (4.8-10.8)
--- NOTE | 2024-07-05 12:38 | P.PNNP_ITS ---
Subjective Subjective Date of Service: 07/05/24 Interval history: interval worsening of critical illness including worsening acidosis, bradycardia, shock, and hypoglycemia; patient daughter called this AM to urgently come to hospital; Seen on HD this AM Physical Exam 2 Vital Signs: Vital Signs: Last Vital Signs Temp 100.0 F 07/05/24 11:00 Pulse 126 H 07/05/24 11:47 Resp 30 H 07/05/24 11:00 BP 130/59 L 07/05/24 11:47 Pulse Ox 92 07/05/24 11:00 O2 Del Method Mechanical Ventil ation 07/05/24 11:00 O2 Flow Rate 15 06/24/24 20:00 FiO2 70 07/05/24 11:27 BMI result Body Mass Index 66.6 Const: General: no acute distress Neck: Other: IJ HD catheter + Resp: Auscultation: diminished lung sounds Cardio: Rate: regular rate GI: Palpation (GI): Soft to palpation Neuro: Other: Intubated and sedated Objective Data Labs 07/05/24 05:35 07/05/24 05:35 Labs: Laboratory Results - last 24 hr 07/04/24 07/04/24 07/04/24 17:14 18:02 20:07 WBC RBC Hgb Hct MCV MCH MCHC RDW Plt Count MPV Immature Gran % (Auto) Neut % (Auto) Lymph % (Auto) [place] % (Auto) Eos % (Auto) Baso % (Auto) Lymph # (Auto) [place] # (Auto) Eos # (Auto) Baso # (Auto) Abs Immat Gran (auto) Absolute Neuts (auto) Absolute Nucleated RBC Nucleated RBC % (auto) Neutrophils % (Manual) Band Neutrophils % Lymphocytes % (Manual) Atypical Lymphs % (Man) Monocytes % (Manual) Eosinophils % (Manual) Metamyelocytes % Myelocytes % Promyelocytes % Abs Neuts (Manual) Lymphocytes # (Manual) Atyp Lymphs # (Manual) Monocytes # (Manual) Eosinophils # (Manual) Metamyelocytes # Myelocytes # Promyelocytes # Nucleated RBCs Platelet Estimate Large Platelets Giant Platelets Plt Morphology Comment RBC Morphology Polychromasia Hypochromasia Spherocytes Target Cells Acanthocytes (Spur) Schistocytes PT INR VBG pH VBG pCO2 VBG pO2 VBG HCO3 VBG O2 Saturation VBG Base Excess Sodium 134 L Potassium 4.3 Chloride 95 L Carbon Dioxide 18 L Anion Gap 25 H BUN 66 H Creatinine 3.36 H Estim Creat Clear Calc 29.6 Estimated GFR 14 POC Glucose 80 Random Glucose 69 Lactic Acid Lactic Acid F/U @ 2Hr Calcium 7.0 L Phosphorus 4.8 H Magnesium 2.1 Ammonia Albumin 2.4 L TSH Free T4 Random Vancomycin 13.7 L Blood Type B Positive Antibody Screen NEGATIVE 07/05/24 07/05/24 07/05/24 00:05 00:27 05:35 WBC 37.5 H* RBC 2.97 L Hgb 7.2 L Hct 23.6 L MCV 79.5 L D MCH 24.2 L MCHC 30.5 L RDW 31.0 H Plt Count 89 L MPV Not Reportable Immature Gran % (Auto) Cancelled Neut % (Auto) Cancelled Lymph % (Auto) Cancelled [place] % (Auto) Cancelled Eos % (Auto) Cancelled Baso % (Auto) Cancelled Lymph # (Auto) Cancelled [place] # (Auto) Cancelled Eos # (Auto) Cancelled Baso # (Auto) Cancelled Abs Immat Gran (auto) Cancelled Absolute Neuts (auto) Cancelled Absolute Nucleated RBC 2.900 H Nucleated RBC % (auto) 7.7 H Neutrophils % (Manual) 51 Band Neutrophils % 13 H Lymphocytes % (Manual) 14 L Atypical Lymphs % (Man) 1 Monocytes % (Manual) 10 Eosinophils % (Manual) 2 Metamyelocytes % 5 Myelocytes % 3 Promyelocytes % 1 Abs Neuts (Manual) 24.0 H Lymphocytes # (Manual) 5.3 H Atyp Lymphs # (Manual) 0.4 Monocytes # (Manual) 3.8 H Eosinophils # (Manual) 0.8 H Metamyelocytes # 1.9 Myelocytes # 1.1 Promyelocytes # 0.4 Nucleated RBCs 7 H Platelet Estimate DECREASED Large Platelets PRESENT Giant Platelets PRESENT Plt Morphology Comment NOTED RBC Morphology NOTED Polychromasia 2+ (3-5) Hypochromasia 1+ (5-14) Spherocytes 1+ (0-2) Target Cells 1+ (5-14) Acanthocytes (Spur) 1+ (0-2) Schistocytes 1+ (0-2) PT 34.1 H D INR 2.9 H VBG pH VBG pCO2 VBG pO2 VBG HCO3 VBG O2 Saturation VBG Base Excess Sodium 132 L Potassium 6.1 H* D Chloride 95 L Carbon Dioxide 11 L Anion Gap 32 H BUN 71 H Creatinine 3.86 H Estim Creat Clear Calc 25.8 Estimated GFR 12 POC Glucose 60 120 H Random Glucose 21 L* Lactic Acid Lactic Acid F/U @ 2Hr Calcium 7.3 L Phosphorus 7.9 H Magnesium 2.4 Ammonia 63 H Albumin 2.6 L TSH 0.03 L Free T4 0.78 Random Vancomycin Blood Type Antibody Screen 07/05/24 07/05/24 07/05/24 05:37 06:45 07:09 WBC RBC Hgb Hct MCV MCH MCHC RDW Plt Count MPV Immature Gran % (Auto) Neut % (Auto) Lymph % (Auto) [place] % (Auto) Eos % (Auto) Baso % (Auto) Lymph # (Auto) [place] # (Auto) Eos # (Auto) Baso # (Auto) Abs Immat Gran (auto) Absolute Neuts (auto) Absolute Nucleated RBC Nucleated RBC % (auto) Neutrophils % (Manual) Band Neutrophils % Lymphocytes % (Manual) Atypical Lymphs % (Man) Monocytes % (Manual) Eosinophils % (Manual) Metamyelocytes % Myelocytes % Promyelocytes % Abs Neuts (Manual) Lymphocytes # (Manual) Atyp Lymphs # (Manual) Monocytes # (Manual) Eosinophils # (Manual) Metamyelocytes # Myelocytes # Promyelocytes # Nucleated RBCs Platelet Estimate Large Platelets Giant Platelets Plt Morphology Comment RBC Morphology Polychromasia Hypochromasia Spherocytes Target Cells Acanthocytes (Spur) Schistocytes PT INR VBG pH 7.17 L* VBG pCO2 29 VBG pO2 52 VBG HCO3 11 L VBG O2 Saturation 67.0 VBG Base Excess -16.0 Sodium Potassium Chloride Carbon Dioxide Anion Gap BUN Creatinine Estim Creat Clear Calc Estimated GFR POC Glucose 46 L* 95 Random Glucose Lactic Acid Lactic Acid F/U @ 2Hr Calcium Phosphorus Magnesium Ammonia Albumin TSH Free T4 Random Vancomycin Blood Type Antibody Screen 07/05/24 07/05/24 07/05/24 07:25 08:03 09:37 WBC RBC Hgb Hct MCV MCH MCHC RDW Plt Count MPV Immature Gran % (Auto) Neut % (Auto) Lymph % (Auto) [place] % (Auto) Eos % (Auto) Baso % (Auto) Lymph # (Auto) [place] # (Auto) Eos # (Auto) Baso # (Auto) Abs Immat Gran (auto) Absolute Neuts (auto) Absolute Nucleated RBC Nucleated RBC % (auto) Neutrophils % (Manual) Band Neutrophils % Lymphocytes % (Manual) Atypical Lymphs % (Man) Monocytes % (Manual) Eosinophils % (Manual) Metamyelocytes % Myelocytes % Promyelocytes % Abs Neuts (Manual) Lymphocytes # (Manual) Atyp Lymphs # (Manual) Monocytes # (Manual) Eosinophils # (Manual) Metamyelocytes # Myelocytes # Promyelocytes # Nucleated RBCs Platelet Estimate Large Platelets Giant Platelets Plt Morphology Comment RBC Morphology Polychromasia Hypochromasia Spherocytes Target Cells Acanthocytes (Spur) Schistocytes PT INR VBG pH VBG pCO2 VBG pO2 VBG HCO3 VBG O2 Saturation VBG Base Excess Sodium Potassium Chloride Carbon Dioxide Anion Gap BUN Creatinine Estim Creat Clear Calc Estimated GFR POC Glucose 75 Random Glucose Lactic Acid 15.7 H* Lactic Acid F/U @ 2Hr 14.6 H* Calcium Phosphorus Magnesium Ammonia Albumin TSH Free T4 Random Vancomycin Blood Type Antibody Screen 07/05/24 07/05/24 11:13 11:53 WBC RBC Hgb Hct MCV MCH MCHC RDW Plt Count MPV Immature Gran % (Auto) Neut % (Auto) Lymph % (Auto) [place] % (Auto) Eos % (Auto) Baso % (Auto) Lymph # (Auto) [place] # (Auto) Eos # (Auto) Baso # (Auto) Abs Immat Gran (auto) Absolute Neuts (auto) Absolute Nucleated RBC Nucleated RBC % (auto) Neutrophils % (Manual) Band Neutrophils % Lymphocytes % (Manual) Atypical Lymphs % (Man) Monocytes % (Manual) Eosinophils % (Manual) Metamyelocytes % Myelocytes % Promyelocytes % Abs Neuts (Manual) Lymphocytes # (Manual) Atyp Lymphs # (Manual) Monocytes # (Manual) Eosinophils # (Manual) Metamyelocytes # Myelocytes # Promyelocytes # Nucleated RBCs Platelet Estimate Large Platelets Giant Platelets Plt Morphology Comment RBC Morphology Polychromasia Hypochromasia Spherocytes Target Cells Acanthocytes (Spur) Schistocytes PT INR VBG pH VBG pCO2 VBG pO2 VBG HCO3 VBG O2 Saturation VBG Base Excess Sodium Potassium Chloride Carbon Dioxide Anion Gap BUN Creatinine Estim Creat Clear Calc Estimated GFR POC Glucose 56 L* 94 Random Glucose Lactic Acid Lactic Acid F/U @ 2Hr Calcium Phosphorus Magnesium Ammonia Albumin TSH Free T4 Random Vancomycin Blood Type Antibody Screen Microbiology Microbiology Results: Microbiology 06/24/24 19:04 Blood - Venous Blood Culture - Final No growth after 5 days. 06/24/24 19:04 Blood - Venous Blood Culture - Final No growth after 5 days. 06/23/24 03:59 Blood - Venous Blood Culture - Final No growth after 5 days. 06/26/24 09:18 Trachea Gram Stain - Final 06/26/24 09:18 Trachea Sputum Culture - Final No growth. 06/23/24 05:30 Blood - Venous Blood Culture - Final No growth after 5 days. 06/18/24 15:26 Blood - Venous Blood Culture - Final No growth after 5 days. 06/18/24 15:26 Blood - Venous Blood Culture - Final No growth after 5 days. 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
[2024-07-05 12:39] LABS: Hemoglobin 6.7 g/dl (12.0-16.0)
[2024-07-05 12:39] LABS: VBG Base Excess -14.7 mmol/L; VBG HCO3 12 mmol/L (22-26); VBG pCO2 33 mmHg; VBG pH 7.16 (7.32-7.43); VBG pO2 119 mmHg
[2024-07-05 12:46] LABS: Magnesium 2.3 mg/dL (1.6-2.6); Phosphorus 7.8 mg/dL (2.7-4.5); Vancomycin Random 13.7 mcg/mL (15-20)
[2024-07-05 12:53] LABS: Band Neutrophils Percent 18 % (3-5); Lymphocytes Absolute Manual 3.9 X10*3/uL (1.2-4.9); Lymphocytes Percent Manual 11 % (20-40); Metamyelocytes Absolute 2.1 X10*3/uL; Metamyelocytes Percent 6 %; Monocytes Absolute Manual 1.1 X10*3/uL (0.1-1.2); Monocytes Percent Manual 3 % (2-11); Myelocytes Absolute 1.1 X10*/uL; Myelocytes Percent 3 %; Neutrophils Absolute Manual 26.9 X10*3/uL (2.0-8.3); Neutrophils Percent Manual 57 % (45-73); Nucleated Red Blood Cells 23 /100WBC (0-0); Promyelocytes Absolute 0.7 X10*3/uL; Promyelocytes Percent 2 %
[2024-07-05 12:58] LABS: Ovalocytes 1+ (5-14) /OIF; RBC Morphology NOTED; Schistocytes 1+ (0-2) /OIF
[2024-07-05 12:59] LABS: Pappenheimer Bodies PRESENT; Platelet Estimate DECREASED (NORMAL); Platelet Morphology Comment NORMAL; Polychromasia 1+ (0-2) /OIF; Spherocytes 1+ (0-2) /OIF; Target Cells 1+ (5-14) /OIF; Toxic Vacuolation PRESENT
[2024-07-05 13:00] LABS: Platelet Count 49 X10*3/uL (160-400)
--- NOTE | 2024-07-05 13:00 | HO.WOUND ---
Wound Consult: Follow up 59yr old female admitted to [facility] on[place]06/18/24 - See progress notes and H&P for detailed history.? Wound consult follow up for wound noted to gluteal slit?and skin integrity assessment - Chart review reveals pt remains critically ill and goals of care discussions are being held with family.? The wound located with in the gluteal fold and pictured below is likely caused in part by Ischemia.? Acute Skin Failure can be caused by ischemia secondary to poor perfusion related to septic shock with multiorgan faliure.? The patients ICU stay is marked by septic shock necessitating vasopressors, respiratory failure necessitating ventilatory support, and renal insufficiency, per chart review Dr. Albarran note from 06/27/24. Patient is critically ill with multiple organ failures including acute encephalopathy, acute hepatic failure, acute renal failure, acute respiratory failure, septic shock. Acute Skin Failure may occur despite the implementation of proper preventative measures.? The scattered areas of irregular shapes and patterns are not typical of those found in pressure injuries alone along with location of pigmented tissue.? The patient continues with skin integrity issues related to ischemia / Acute Skin Failure - no new topical recommendations needed at this time. [facility] Specialty BETH mattress in use, along with wedges, barrier creams and Q2hr turns when appropriate. Intergluteal Fold and back Etiology: Unclear Etiology: Suspect Ischemia component related to Acute Skin Failure Goals of Treatment: ? Off Load Pressure - Triad to act as a barrier to friction and moisture - continue to use all preventative measures in place (Currently in place - Bariatric mattress, Will consider [facility] bed, Off Loading with pillows - chart review turns and repositions were consistently carried out leading up to first observation of skin changes.? Nutrition recommendations in place and following.? Wedges in use. Urinary containment devices in place along with disposable dry flow pads in place. Inpatient wound care nurse will continue to follow. Recommendations: 1.Turn and Reposition every 2 hours continue use of wedges. 2. Off Load all bony prominences with use of pillows, wedges and heel boots - preventative foams when needed. Heel Protector boots in use at this time. 3. Monitor for incontinence and moisture control - Barrier cream in use. 4. Provide adequate and supplemental nutrition - Nutrition is following and recommendations in place. 5. Continue Bariatric BETH bed from [facility]. 6. Sacrum and back - Cleanse with PH balanced wipes, pat dry. Apply Triad layer to tissue.? Do not remove all of paste between applications as this may cause further damage to wound bed.? Re-consult wound care Nurse for wound deterioration or wound changes.
[2024-07-05 13:01] LABS: Lactic Acid 17.5 mmol/L (0.5-2.0)
[2024-07-05 13:23] LABS: Cancel Lactic Acid Canceled
[2024-07-05] MEDS: Amiodarone/Dextrose 150 MG/100 ML PLAST..BAG 600 MG IV (13:29)
[2024-07-05] MEDS: vancomycin HCL 500 MG in 0.9 % Sodium Chloride 100 ML 110 MG IV (14:20)
[2024-07-05 14:23] LABS: Glucose, Whole Blood 79 mg/dL (60-115)
--- NOTE | 2024-07-05 14:40 | MHC.CM.PN ---
Pt continues care in ICU: vented, on HD, bx shows hepatic malignancy: overall prognosis poor: MD held goals of care meeting w/pt's dtr who agreed with comfort focused care and changed pt to DNR however, her brother has not reached the same decision and she would like to wait for a transition to [employer]. CM to follow
--- NOTE | 2024-07-05 15:00 | PC.NURSE ---
Shift eval 7a-3p: Patient remains intubated, on AC settings, no sedation - RR high 20's to 33 - breathing over set rate - see vent assessment. Minimal cough and gag, unresponsive. Patient requiring high dose pressors - high-concentration levophed, vasopressin, epinephrine drips - see MAR for titrations. Patient was undergoing dialysis, completed at approx 11am. Blood not able to be put back per authorization specialist and rissues with clotting. Patient unstable during this time - unable to reposition patient. Repositioned x1 after dialysis - HR valentín to 40 to 50 in response - recovered shortly after. Family meeting planned - this RN updated daughter, Mary and family member about patient condition. Dr Serna met with family members and decision made to change patient code status - DNR. Blood sugar had been low with morning labs - treated with D50 amp, blood sugar rechecked. d10 IVF infusing. Blood sugar low again at approx 11am - treated again with PRN D50 amp. Blood sugar remained stable. Dr Serna aware of low blood sugar. 11am - patient went into rapid AFIB - 170's. Dr Serna made aware - order for PRN amio bolus if HR sustains > 150 for > 15 min & plan to titrate off epinephrine if possible. Epi titrated off, amio bolus given with good effect, HR down to 80's 90's AFIB in response - per EMAR. H&H low - 1 unit RBC transfused. Critical lactic levels, > 15, and no improvement in PH - all critical values reported to Dr Serna.
--- NOTE | 2024-07-05 16:08 | PC.NURSE ---
Assumed care of patient 15:00 new POC glucose check 52. MD notified. Per MD increased D10W rate to 150 ml/hr. Give D50 prn dose per MD.
[2024-07-05 16:11] LABS: Glucose, Whole Blood 52 mg/dL (60-115)
[2024-07-05] MEDS: Heparin Sodium,Porcine 5,000 UNIT/ML VIAL 5000 UNIT INTRACATH (16:58)
[2024-07-05] MEDS: Artificial Tears Ophth Oint 3.5 GM TUBE 1 APPL EYE-BOTH (17:06)
[2024-07-05 17:21] LABS: Glucose, Whole Blood 108 mg/dL (60-115)
[2024-07-05] MEDS: cefEPime HCl 1 GM in 0.9 % Sodium Chloride 50 ML IV (17:59)
[2024-07-05] MEDS: Dextrose 10 % 1,000 ML 150 ML IVCONT (18:31)
[2024-07-05] MEDS: Norepinephrine Bitartrate/NS 32 MG/250 ML PLAST..BAG 56.15 MG IVCONT (18:33)
[2024-07-05 18:36] LABS: VBG Base Excess -23.1 mmol/L; VBG HCO3 5 mmol/L (22-26); VBG pCO2 17 mmHg; VBG pH 7.06 (7.32-7.43); VBG pO2 199 mmHg
[2024-07-05 18:37] LABS: Venous Blood Gas Refer to POC result
[2024-07-05 18:39] LABS: Hemoglobin 7.3 g/dl (12.0-16.0); Mean Corpuscular Volume 85.6 fL (80.0-98.0); PLT CLUMP 1
[2024-07-05 18:41] LABS: Mean Corpuscular HGB Conc 29.2 g/dl (31.0-35.0); Red Blood Count 2.92 X10*6/uL (4.20-5.50); Red Cell Distribution Width 29.3 % (11.0-16.0)
[2024-07-05 18:46] LABS: NRBC Pct Auto 14.3 /100WBC (0.0-0.2); PLT ABN DIST 1; WBC ABN SCTR FOR CBC 1
[2024-07-05 18:48] LABS: White Blood Count 35.8 X10*3/uL (4.8-10.8)
[2024-07-05 18:57] LABS: Platelet Count 47 X10*3/uL (160-400)
[2024-07-05 19:01] LABS: Blood Urea Nitrogen 52 mg/dL (9-16); Calcium 7.4 mg/dL (8.4-10.2); Carbon Dioxide < 5 mmol/L (22-29); Chloride 94 mmol/L (96-108); Creatinine Clr Calc Pharmacy 30.9; Estimated Glomerular Filt Rate 15; Glucose Random 78 mg/dL (60-115); Magnesium 2.6 mg/dL (1.6-2.6); Phosphorus 10.1 mg/dL (2.7-4.5); Potassium 6.3 mmol/L (3.3-5.1); Sodium 131 mmol/L (135-145)
[2024-07-05 19:16] LABS: Band Neutrophils Percent 13 % (3-5); Eosinophils Absolute Manual 0.4 X10*3/uL (0.0-0.4); Eosinophils Percent Manual 1 % (0-4); Lymphocytes Absolute Manual 5.7 X10*3/uL (1.2-4.9); Lymphocytes Percent Manual 16 % (20-40); Metamyelocytes Absolute 1.8 X10*3/uL; Metamyelocytes Percent 5 %; Monocytes Absolute Manual 2.5 X10*3/uL (0.1-1.2); Monocytes Percent Manual 7 % (2-11); Myelocytes Absolute 2.1 X10*/uL; Myelocytes Percent 6 %; Neutrophils Absolute Manual 22.6 X10*3/uL (2.0-8.3); Neutrophils Percent Manual 50 % (45-73); Nucleated Red Blood Cells 35 /100WBC (0-0); Pappenheimer Bodies PRESENT; Platelet Estimate DECREASED (NORMAL); Platelet Morphology Comment NORMAL; Promyelocytes Absolute 0.7 X10*3/uL; Promyelocytes Percent 2 %; RBC Morphology NOTED; Toxic Granulation PRESENT; Toxic Vacuolation PRESENT
[2024-07-05 19:17] LABS: Polychromasia 1+ (0-2) /OIF; Schistocytes 1+ (0-2) /OIF; Spherocytes 1+ (0-2) /OIF; Target Cells 1+ (5-14) /OIF
[2024-07-05 20:37] LABS: Glucose, Whole Blood 80 mg/dL (60-115)
[2024-07-05] MEDS: Norepinephrine Bitartrate/NS 32 MG/250 ML PLAST..BAG 85.08 MG IVCONT (21:48)
[2024-07-05 23:07] LABS: Glucose, Whole Blood 69 mg/dL (60-115)
[2024-07-06] VITALS (28 sets, daily range): BP systolic 52–140; BP diastolic 18–60; PULSE 48–103; RESP 24–34; TEMP 34.9–37.8; O2SAT 45–63
[2024-07-06] MEDS: Sodium Bicarbonate 8.4% 150 MEQ in Dextrose 5 % 850 ML 100 MEQ IV (00:29)
[2024-07-06] MEDS: Norepinephrine Bitartrate/NS 32 MG/250 ML PLAST..BAG 85.08 MG IVCONT ×2 (00:36→04:06)
[2024-07-06] MEDS: Dextrose 10 % 1,000 ML 150 ML IVCONT (00:38)
[2024-07-06 00:50] LABS: Glucose, Whole Blood 75 mg/dL (60-115)
[2024-07-06] MEDS: metroNIDAZOLE/NS 500 MG/100 ML PIGGYBACK 100 MG IV (03:35)
[2024-07-06 03:38] LABS: Glucose, Whole Blood 77 mg/dL (60-115)
[2024-07-06] MEDS: Vasopressin 20 UNIT/100 ML INFUS..BTL 12 UNIT IVCONT (04:49)
[2024-07-06 05:57] LABS: VBG Base Excess -31.3 mmol/L; VBG HCO3 3 mmol/L (22-26); VBG pCO2 31 mmHg; VBG pH 6.62 (7.32-7.43); VBG pO2 60 mmHg
[2024-07-06 05:59] LABS: Venous Blood Gas Refer to POC result
[2024-07-06] MEDS: Sodium Bicarbonate 8.4% 50 MEQ/50 ML SYRINGE IVPUSH (05:59)
[2024-07-06 06:07] LABS: Mean Corpuscular HGB Conc 26.9 g/dl (31.0-35.0); Mean Corpuscular Hemoglobin 24.5 pg (27.0-33.0); Mean Corpuscular Volume 91.4 fL (80.0-98.0); NRBC Pct Auto 17.2 /100WBC (0.0-0.2); PLT CLUMP 1; Red Cell Distribution Width 28.9 % (11.0-16.0)
[2024-07-06 06:09] LABS: Hemoglobin 5.4 g/dl (12.0-16.0); White Blood Count 26.7 X10*3/uL (4.8-10.8)
[2024-07-06 06:10] LABS: Hematocrit 20.1 % (37.0-47.0)
--- NOTE | 2024-07-06 06:12 | P.ACPN_ITS ---
Advanced Care Planning Note Advanced Care Planning Note Discussed with: family member(s) Time spent (in minutes): 45 Narrative: Ms. Ezequiel Levy?s daughter was again encouraged to come to the hospital in the night order selector hours as her mother?s clinical status continued to decline.? Mary and close family friend arrived at the bedside .? We discussed her worsening oxygenation despite 100% FiO2, hypotension despite vasopressors, severe metabolic acidosis, renal failure, hepatic failure, metastatic disease. At this time Mary is requesting comfort-focused care only and would like all medications stopped. She understands that once the medications are withdrawn, the pt will . The pt?s code status has been changed to reflect the family?s wishes.? Problems Discussed (1) JAYSON (acute kidney injury):
[2024-07-06 06:28] LABS: Platelet Count 21 X10*3/uL (160-400)
[2024-07-06 06:33] LABS: Band Neutrophils Percent 12 % (3-5); Basophils Abs Manual 0.3 X10*3/uL (0.0-0.2); Basophils Percent Manual 1 % (0-2); Lymphocytes Absolute Manual 9.6 X10*3/uL (1.2-4.9); Lymphocytes Percent Manual 36 % (20-40); Metamyelocytes Absolute 2.4 X10*3/uL; Metamyelocytes Percent 9 %; Monocytes Absolute Manual 1.1 X10*3/uL (0.1-1.2); Monocytes Percent Manual 4 % (2-11); Myelocytes Absolute 0.3 X10*/uL; Myelocytes Percent 1 %; Neutrophils Absolute Manual 11.7 X10*3/uL (2.0-8.3); Neutrophils Percent Manual 32 % (45-73); Nucleated Red Blood Cells 33 /100WBC (0-0); Promyelocytes Absolute 1.3 X10*3/uL; Promyelocytes Percent 5 %
[2024-07-06 06:34] LABS: Acanthocytes 1+ (0-2) /OIF; Giant Platelet PRESENT; Hypochromasia 1+ (5-14) /OIF; Large Platelet PRESENT; Microcytosis 1+ (5-14) /OIF; Platelet Estimate DECREASED (NORMAL); Platelet Morphology Comment NOTED; Polychromasia 2+ (3-5) /OIF; RBC Morphology NOTED; Schistocytes 1+ (0-2) /OIF; Spherocytes 2+ (3-5) /OIF; Target Cells 1+ (5-14) /OIF; Toxic Granulation PRESENT
[2024-07-06 06:35] LABS: Toxic Vacuolation PRESENT
[2024-07-06 06:41] LABS: Albumin Level 1.6 g/dL (3.5-5.0); Blood Urea Nitrogen 48 mg/dL (9-16); Calcium 7.5 mg/dL (8.4-10.2); Carbon Dioxide < 5 mmol/L (22-29); Chloride 94 mmol/L (96-108); Creatinine Clr Calc Pharmacy 30.6; Estimated Glomerular Filt Rate 14; Glucose Random 96 mg/dL (60-115); Magnesium 2.9 mg/dL (1.6-2.6); Phosphorus 14.4 mg/dL (2.7-4.5); Potassium 7.7 mmol/L (3.3-5.1); Sodium 131 mmol/L (135-145)
--- NOTE | 2024-07-06 06:46 | PC.NURSE ---
assumed care 1900 pt DNR on Vaso and LEVO, levo maxed out added Epi see emar , 02 sats decreased 85% placed on 100% 10 of peep. 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 TOD [id number]
--- NOTE | 2024-07-06 07:04 | PM.DDS ---
Discharge Sum: Prov Provider Primary care physician: Osei Fernández MD <Tonja Devries NP - Last Filed: 07/06/24 07:09> Consults: 06/18/24 16:40 Consult to General Surgery Stat [place] [facility] [place] [facility] Reason for consultation: incarcerated hernia Has provider been notified: Yes 06/19/24 10:37 Consult to Nephrology Routine Consulting Provider[place] [facility] [place] [facility] Reason for consultation: elva 06/20/24 12:30 Consult to Hematology / Oncology Routine Consulting [place] [facility] [place] Reason for consultation: ? possible metastatic liver dis/hx of colon cancer Has provider been notified: No 06/20/24 14:55 Consult to Gastroenterology Routine Consulting [place] [facility] [place] [facility] Reason for consultation: abd pain , elevated lft ,anemia ,liver masses Has provider been notified: No 07/05/24 10:51 Consult to Wound Care Routine Reason for consultation: known skin issues - unable to repos r/t dialysis unstable Has provider been notified: Yes <Tonja Devries NP - Last Filed: 07/06/24 07:09> Pronouncing clinician: Tonja Devries <Tonja Devries NP - Last Filed: 07/06/24 07:09> Discharge Sum: Diag PCOD Cause of : Shock <Sylvie Serna MD - Last Filed: 07/06/24 09:09> Contributing Factors (1) Sepsis: (2) Renal failure: (3) Acute respiratory failure: (4) Hepatic failure: (5) Malignancy: Discharge Sum: Summary Date and Time Date of admission: 06/18/24 20:33 <Tonja Devries NP - Last Filed: 07/06/24 07:09> Date of : 07/06/24 <Tonja Devries NP - Last Filed: 07/06/24 07:09> Time of : 06:46 <Tonja Devries NP - Last Filed: 07/06/24 07:09> Summary Details: Ms. Ezequiel Levy is a 59-year-old female with obesity complicated by diabetes mellitus, colon cancer status post colectomy initially presenting to emergency department on 06/18 with abdominal pain, found to have incarcerated hernia as well as liver masses, admitted to floor and managed medically; Ms. Ezequiel Levy's hospital course was complicated by shock, complicated by multi-system organ failure including acute renal failure, for which she was admitted to the ICU on 06/21; on 06/24, Ms. Ezequiel Levy developed worsening respiratory failure and was intubated; on 06/26, Ms. 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 Ezequiel Levy's critical illness continued throughout her ICU course, characterized by persistent renal failure, development of hepatic failure, and persistent encephalopathy; on 07/06 at around 6:00, Ms. Ezequiel Levy's family changed her philosophy of care to comfort-focused care; Ms. Ezequiel Levy shortly thereafter at 06:46 on 07/06 <Sylvie Serna MD - Last Filed: 07/06/24 09:09> Additional Data Confirmation of as documented by pronouncing clinician: no pulse, no respirations and no heart sounds <Tonja Devries NP - Last Filed: 07/06/24 07:09> Family: at bedside <Tonja Devries NP - Last Filed: 07/06/24 07:09> Attending/PCP notified?: Yes <Tonja Devries NP - Last Filed: 07/06/24 07:09> Attending physician: Sylvie Serna MD <Tonja Devries NP - Last Filed: 07/06/24 07:09> Was code activated?: No <Tonja Devries NP - Last Filed: 07/06/24 07:09> Autopsy requested?: No <Tonja Devries NP - Last Filed: 07/06/24 07:09> architectural examiner notified?: No <Tonja Devries NP - Last Filed: 07/06/24 07:09> Organ bank notified?: Yes <Tonja Devries NP - Last Filed: 07/06/24 07:09> Advance directives: No <Tonja Devries NP - Last Filed: 07/06/24 07:09> Hospice patient?: No <Tonja Devries NP - Last Filed: 07/06/24 07:09>
== END 2024-07-06 06:46 | disposition expired | DRG 720 ==
LOC: HO.ED 20:15 → HO.EDOVER 20:45 → HO.S3 06-19 09:38 → HO.IMC 06-21 16:36 → HO.ICU 06-21 19:18
PROVIDERS: Emergency Medicine; Internal Medicine; Internal Medicine Critical Care Medicine; Internal Medicine Gastroenterology; Internal Medicine Hypertension Specialist; Internal Medicine Pulmonary Disease; Nurse Practitioner Family; Physician Assistant; Physician Assistant Medical; Physician Assistant Surgical; Admitting Provider Student in an Organized Health Care Education/Training Program; Emergency Provider Emergency Medicine; PCP Internal Medicine Geriatric Medicine; Visit Provider Internal Medicine Critical Care Medicine
DX: A41.9 Sepsis, unspecified organism (principal); N17.0 Acute kidney failure with tubular necrosis; J96.01 Acute respiratory failure with hypoxia; K72.00 Acute and subacute hepatic failure without coma; R65.21 Severe sepsis with septic shock; J18.9 Pneumonia, unspecified organism; G92.8 Other toxic encephalopathy; K83.1 Obstruction of bile duct; D69.6 Thrombocytopenia, unspecified; E87.21 Acute metabolic acidosis; C78.7 Secondary malignant neoplasm of liver and intrahepatic bile duct; I95.2 Hypotension due to drugs; K43.0 Incisional hernia with obstruction, without gangrene; Z68.44 Body mass index [BMI] 60.0-69.9, adult; E87.1 Hypo-osmolality and hyponatremia; E03.9 Hypothyroidism, unspecified; Z66 Do not resuscitate; I48.91 Unspecified atrial fibrillation; D50.9 Iron deficiency anemia, unspecified; D63.0 Anemia in neoplastic disease; Z51.5 Encounter for palliative care; J45.909 Unspecified asthma, uncomplicated; E11.649 Type 2 diabetes mellitus with hypoglycemia without coma; N39.0 Urinary tract infection, site not specified; E87.6 Hypokalemia; E66.01 Morbid (severe) obesity due to excess calories; Z85.038 Personal history of other malignant neoplasm of large intestine; Z20.822 Contact with and (suspected) exposure to COVID-19; Z79.890 Hormone replacement therapy; Z79.899 Other long term (current) drug therapy
CPT/HCPCS: 36415; 36556; 47000; 71045; 74177; 76705; 76775; 76942; 80048; 80053; 80076; 80143; 80179; 80202; 81001; 82040; 82140; 82248; 82378; 82533; 82728; 82803; 82947; 82977; 83010; 83540; 83605; 83615; 83690; 83735; 84100; 84145; 84439; 84443; 84484; 84550; 85007; 85014; 85018; 85025; 85027; 85045; 85379; 85610; 85730; 86021; 86160; 86704; 86706; 86850; 86880; 86900; 86901; 86923; 87040; 87070; 87086; 87205; 87340; 87449; 87635; 87640; 87641; 88307; 88313; 88341; 88342; 88360; 90999; 93005; 93306; 94002; 94003; 94640; 94799; 97161; 99285; C1752; C1758; C1769; J0131; J0171; J0282; J0283; J0613; J0651; J0692; J0737; J1160; J1171; J1450; J1644; J1836; J1956; J2003; J2270; J2371; J2405; J2598; J2704; J3010; J3370; J3475; J7120; P9016; P9047; Q9957; Q9967

== ENCOUNTER → 2024-06-18 14:43 | Outpatient (BNV) | payer MEDICAID, SELFPAY | PROVIDERS: Emergency Provider Emergency Medicine; PCP Internal Medicine Geriatric Medicine; Visit Provider Radiology Diagnostic Radiology | DX: C78.7 Secondary malignant neoplasm of liver and intrahepatic bile duct (principal); K46.9 Unspecified abdominal hernia without obstruction or gangrene; R18.8 Other ascites; R94.5 Abnormal results of liver function studies; R10.9 Unspecified abdominal pain | CPT/HCPCS: 74177; 76705 ==

== ENCOUNTER 2024-06-18 20:33 | Outpatient (BNV) | payer MEDICAID, SELFPAY | END 2024-06-27 11:55 | PROVIDERS: Admitting Provider Student in an Organized Health Care Education/Training Program; Emergency Provider Emergency Medicine; PCP Internal Medicine Geriatric Medicine; Visit Provider Radiology Diagnostic Radiology | DX: R74.01 Elevation of levels of liver transaminase levels (principal) | CPT/HCPCS: 76705 ==

== ENCOUNTER 2024-06-18 20:33 | Outpatient (BNV) | payer MEDICAID, SELFPAY | END 2024-06-24 20:40 | PROVIDERS: Admitting Provider Student in an Organized Health Care Education/Training Program; Emergency Provider Emergency Medicine; PCP Internal Medicine Geriatric Medicine; Visit Provider Radiology Diagnostic Radiology | DX: Z99.11 Dependence on respirator [ventilator] status (principal) | CPT/HCPCS: 71045 ==

== ENCOUNTER 2024-06-18 20:33 | Outpatient (BNV) | payer MEDICAID, SELFPAY | END 2024-06-23 03:15 | PROVIDERS: Admitting Provider Student in an Organized Health Care Education/Training Program; Emergency Provider Emergency Medicine; PCP Internal Medicine Geriatric Medicine; Visit Provider Internal Medicine Cardiovascular Disease | DX: I48.91 Unspecified atrial fibrillation (principal); I45.10 Unspecified right bundle-branch block; R94.31 Abnormal electrocardiogram [ECG] [EKG] | CPT/HCPCS: 93010 ==

== ENCOUNTER 2024-06-18 20:33 | Outpatient (BNV) | payer MEDICAID, SELFPAY | END 2024-06-20 09:58 | PROVIDERS: Admitting Provider Student in an Organized Health Care Education/Training Program; Emergency Provider Emergency Medicine; PCP Internal Medicine Geriatric Medicine; Visit Provider Radiology Neuroradiology | DX: N17.9 Acute kidney failure, unspecified (principal) | CPT/HCPCS: 76775 ==

== ENCOUNTER 2024-06-18 20:33 | Outpatient (BNV) | payer MEDICAID, SELFPAY | END 2024-06-25 11:41 | PROVIDERS: Admitting Provider Student in an Organized Health Care Education/Training Program; Emergency Provider Emergency Medicine; PCP Internal Medicine Geriatric Medicine; Visit Provider Radiology Diagnostic Radiology | DX: Z46.59 Encounter for fitting and adjustment of other gastrointestinal appliance and device (principal) | CPT/HCPCS: 71045 ==

== ENCOUNTER 2024-06-18 20:33 | Outpatient (BNV) | payer MEDICAID, SELFPAY | END 2024-06-23 13:56 | PROVIDERS: Admitting Provider Student in an Organized Health Care Education/Training Program; Emergency Provider Emergency Medicine; PCP Internal Medicine Geriatric Medicine; Visit Provider Radiology Diagnostic Radiology | DX: C78.7 Secondary malignant neoplasm of liver and intrahepatic bile duct (principal); R16.0 Hepatomegaly, not elsewhere classified; K43.9 Ventral hernia without obstruction or gangrene | CPT/HCPCS: 74177 ==

== ENCOUNTER 2024-06-18 20:33 | Outpatient (BNV) | payer MEDICAID, SELFPAY | END 2024-07-04 17:42 | PROVIDERS: Admitting Provider Student in an Organized Health Care Education/Training Program; Emergency Provider Emergency Medicine; PCP Internal Medicine Geriatric Medicine; Visit Provider Internal Medicine | DX: R00.0 Tachycardia, unspecified (principal); I45.10 Unspecified right bundle-branch block; R94.31 Abnormal electrocardiogram [ECG] [EKG] | CPT/HCPCS: 93010 ==

== ENCOUNTER 2024-06-18 20:33 | Outpatient (BNV) | payer MEDICAID, SELFPAY | END 2024-06-26 12:10 | PROVIDERS: Admitting Provider Student in an Organized Health Care Education/Training Program; Emergency Provider Emergency Medicine; PCP Internal Medicine Geriatric Medicine; Visit Provider Physician Assistant Surgical | DX: R16.0 Hepatomegaly, not elsewhere classified (principal) | CPT/HCPCS: 47000; 76942 ==

== ENCOUNTER 2024-06-18 20:33 | Outpatient (BNV) | payer MEDICAID, SELFPAY | END 2024-06-28 04:35 | PROVIDERS: Admitting Provider Student in an Organized Health Care Education/Training Program; Emergency Provider Emergency Medicine; PCP Internal Medicine Geriatric Medicine; Visit Provider Radiology Vascular & Interventional Radiology | DX: R09.02 Hypoxemia (principal) | CPT/HCPCS: 71045 ==

== ENCOUNTER 2024-06-18 20:33 | Outpatient (BNV) | payer MEDICAID, SELFPAY | END 2024-06-21 17:00 | PROVIDERS: Admitting Provider Student in an Organized Health Care Education/Training Program; Emergency Provider Emergency Medicine; PCP Internal Medicine Geriatric Medicine; Visit Provider Internal Medicine Cardiovascular Disease | DX: I27.20 Pulmonary hypertension, unspecified (principal); R93.1 Abnormal findings on diagnostic imaging of heart and coronary circulation | CPT/HCPCS: 93306 ==

== ENCOUNTER → 2024-06-18 20:33 | Outpatient (BNV) | payer MEDICAID, SELFPAY | PROVIDERS: Admitting Provider Student in an Organized Health Care Education/Training Program; Emergency Provider Emergency Medicine; PCP Internal Medicine Geriatric Medicine; Visit Provider Internal Medicine | DX: R16.0 Hepatomegaly, not elsewhere classified (principal) | CPT/HCPCS: 99222 ==

== ENCOUNTER → 2024-06-18 20:33 | Outpatient (BNV) | payer MEDICAID, SELFPAY | PROVIDERS: Admitting Provider Student in an Organized Health Care Education/Training Program; Emergency Provider Emergency Medicine; PCP Internal Medicine Geriatric Medicine; Visit Provider Physician Assistant Surgical | DX: N18.6 End stage renal disease (principal) | CPT/HCPCS: 36556; 76937 ==

== ENCOUNTER → 2024-06-18 20:33 | Outpatient (BNV) | payer MEDICAID, SELFPAY | PROVIDERS: Admitting Provider Student in an Organized Health Care Education/Training Program; Emergency Provider Emergency Medicine; PCP Internal Medicine Geriatric Medicine; Visit Provider Student in an Organized Health Care Education/Training Program | DX: N17.9 Acute kidney failure, unspecified (principal); A41.9 Sepsis, unspecified organism; N39.0 Urinary tract infection, site not specified | CPT/HCPCS: 99223; 99232 ==

== ENCOUNTER → 2024-06-18 20:33 | Outpatient (BNV) | payer MEDICAID, SELFPAY | PROVIDERS: Admitting Provider Student in an Organized Health Care Education/Training Program; Emergency Provider Emergency Medicine; PCP Internal Medicine Geriatric Medicine; Visit Provider Internal Medicine Hypertension Specialist | DX: N17.9 Acute kidney failure, unspecified (principal) | CPT/HCPCS: 99223; 99232 ==